=== PATIENT | female | born 1945 | race Caucasian/White ===

== ENCOUNTER 2016-12-23 18:17 | Emergency (ER) | payer MEDICARE, MEDICAID ==
[~2016-12-23] VITALS: Ht 172.7 cm; Wt 127.2 kg
[~2016-12-23 18:17] MED LIST: AMLO10TA2 PO; AMLO10TA82 PO; APIX5TAB PO; ATOR10TA PO; ATOR10TA66 PO; CEFD300C3 PO; CYCL5TAB11 PO; DILT240C90 PO; DIPH25CA6 PO; DOCU-143 PO; FLUT9.9S NS; GBPN300C PO; HCT25T PO; HYDR-34 PO; HYDR25TA4 PO; LEVO125T6 PO; LISI-556 PO; LVT.15T PO; MENT56.7 TP; METO-270 PO; OMG1KC PO; PRAV40TA PO; RT-ALBUINH; TRM50T PO
--- NOTE | 2016-12-23 18:36 | ED Back Pain ---
General Chief Complaint: Back Problems Stated Complaint: RT SIDED RIB/BACK/KNEE PAIN Source of Information: Patient Exam Limitations: No Limitations History of Present Illness Time Seen by Provider: 18:34 Initial Comments To ER with right flank pain, low back pain for the past year but worse over the past week, worsened by movement. She also reports urinary frequency and burning upon urination for the past few days. No fevers. Also reports a "vaginal sore" that is tender and enlarging. She did see her primary care provider for these issues 2 weeks ago and was told to place Desitin on this but she states "it's too wet down there for Desitin" Location: Lumbar Spine Timing/Duration: 2-3 Days Severity: Moderate Associated Symptoms: No muscle spasms, lower back pain Allergies and Home Medications Allergies Coded Allergies: Penicillins (Verified Allergy, Mild, 01/04/14) Biaydyg-Lst-Ncy Reductase Inhibitor (Verified Allergy, Mild, 01/04/14) aspirin (Verified Allergy, Mild, 01/04/14) codeine (Verified Allergy, Mild, 01/04/14) opium tincture (Verified Allergy, Mild, 01/04/14) tramadol (Verified Allergy, Mild, 01/04/14) Home Medications Albuterol Sulfate 8.5 Gm Hfa.aer.ad, #9 (Reported) Apixaban 5 Mg Tablet, 5 MG PO BID, (Reported) Atorvastatin Calcium 10 Mg Tablet, 10 MG PO DAILY, (Reported) Fluconazole 150 Mg Tablet, 150 MG PO DAILY, #3 Prescribed by: EV DARBY on 12/23/162018 Gabapentin 300 Mg Cap, 300 MG PO BID PRN for PAIN, (Reported) Hydrochlorothiazide 25 Mg Tablet, 25 MG PO DAILY, (Reported) Levothyroxine Sodium 125 Mcg Tablet, 125 MCG PO DAILY, (Reported) Lisinopril 5 Mg Tablet, 5 MG PO HS, (Reported) Metoprolol Succinate 25 Mg Tab.er.24h, 25 MG PO DAILY, (Reported) Sulfamethoxazole/Trimethoprim 1 Each Tablet, 1 EACH PO BID, #10 Prescribed by: EV DARBY on 12/23/162018 Time Seen by Provider: 18:36 Constitutional: see HPI, No chills, No fever EENTM: see HPI Respiratory: no symptoms reported, No cough, No short of breath Cardiovascular: no symptoms reported Genitourinary: see HPI, dysuria Musculoskeletal: see HPI, back pain Skin: no symptoms reported Psychiatric/Neurological: No Symptoms Reported Past [place]p[place]-[place] Hx Patient Social History Former Smoker/When Quit: Jul 19, 1995 Recent Foreign Travel: No Contact w/Someone Who Travel: No Immunizations Up To Date Tetanus Booster (TDap): Unknown Date of Pneumonia Vaccine: Jul 18, 2015 Date of Influenza Vaccine: Jul 18, 2015 Surgeries HX Surgeries: Yes (DENTAL, HEMORRHOIDECTOMY, CARDIAC CATH; CATARACTS) Surgeries: Cardiac, Eye Surgery, Rectal, Tubal Ligation Respiratory Hx Respiratory Disorders: Yes (PNEUMONIA A CHILD; ) Respiratory Disorders: Asthma, Pneumonia, Sleep Apnea Cardiovascular Hx Cardiac Disorders: Yes (CLEAN CATH 09/03 ) Cardiac Disorders: Coronary Artery Disease, High Cholesterol, Hypertension Neurological Hx Neurological Disorders: No 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 System Hx 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 Disorders: No Sexually Transmitted Disease: No HIV/AIDS: No 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 Disorders: Denies Genitourinary Hx Genitourinary Disorders: Yes (FREQUENT UTI'S AND BLADDER INFECTIONS) Genitourinary Disorders: Bladder Infection, UTI-Chronic Gastrointestinal Hx Gastrointestinal Disorders: Yes Gastrointestinal Disorders: Gastroesophageal Reflux, Chronic Constipation, Hemorrhoids, Irritable Bowel Musculoskeletal Hx Musculoskeletal Disorders: Yes (BONE DZ) Musculoskeletal Disorders: Arthritis, Fibromyalgia Endocrine Hx Endocrine Disorders: Yes Endocrine Disorders: Hypothyroidsim HEENT HX ENT Disorders: Yes (WEARS GLASSES) HEENT Disorders: Cataract Hearing Impairment: Hard of Hearing Cancer Hx Cancer: No Psychosocial Hx Psychiatric Problems: Yes Behavioral Health Disorders: Anxiety Integumentary HX Skin/Integumentary Disorder: No Blood Transfusions Hx Blood Disorders: No Family Medical History Family Medial History: Dementia 19 FATHER Drug abuse G8 BROTHER G8 SISTER FH: pancreatic cancer 19 MOTHER ( OF PANCREATIC CA AGE 67) Thyroid disease 19 MOTHER Physical Exam Vital Signs Vital Sign - Last 12Hours 12/23/16 18:30 Temp 98.0 Pulse 80 Resp 20 B/P (MAP) 163/87 Pulse Ox 96 O2 Delivery Room Air Capillary Refill : Less Than 3 Seconds General Appearance: No Apparent Distress, WD/WN HEENT: PERRL/EOMI, TMs Normal Neck: Full Range of Motion, Normal Inspection Cardiovascular: Regular Rate, Rhythm, Normal Peripheral Pulses Respiratory: Normal Breath Sounds, No Accessory Muscle Use, No Respiratory Distress Gastrointestinal: Normal Bowel Sounds, Non Tender, Soft Genital/Rectal: Other (genital exam done with any back at the bedside. There is excoriation at the vaginal introitus posteriorly. There is no erythema or lesion at the urethra. There is no active bleeding from this area though patient states this has been bleeding earlier today.) Back: No CVA Tenderness (L), CVA Tenderness (R) Extremity: Normal Capillary Refill, Other (the right knee is without swelling erythema abrasions deformity or ecchymosis. There is no palpable effusion.) Neurologic/Psychiatric: Alert, Oriented x3 Skin: Normal Color, Warm/Dry Progress/Results/Core Measures Results/Orders Lab Results Laboratory Tests Test 12/23/16 18:40 12/23/16 20:01 Range/Units White Blood Count 7.2 4.3-11.0 10^3/uL Red Blood Count 4.92 4.35-5.85 10^6/uL Hemoglobin 12.8 11.5-16.0 G/DL Hematocrit 40 35-52 % Mean Corpuscular Volume 82 80-99 FL Mean Corpuscular Hemoglobin 26 25-34 PG Mean Corpuscular Hemoglobin Concent 32 32-36 G/DL Red Cell Distribution Width 14.0 10.0-14.5 % Platelet Count 251 130-400 10^3/uL Mean Platelet Volume 9.0 7.4-10.4 FL Neutrophils (%) (Auto) 71 42-75 % Lymphocytes (%) (Auto) 17 12-44 % Monocytes (%) (Auto) 9 0-12 % Eosinophils (%) (Auto) 2 0-10 % Basophils (%) (Auto) 0 0-10 % Neutrophils # (Auto) 5.1 1.8-7.8 X 10^3 Lymphocytes # (Auto) 1.3 1.0-4.0 X 10^3 Monocytes # (Auto) 0.7 0.0-1.0 X 10^3 Eosinophils # (Auto) 0.2 0.0-0.3 10^3/uL Basophils # (Auto) 0.0 0.0-0.1 10^3/uL Sodium Level 143 135-145 MMOL/L Potassium Level 3.8 3.6-5.0 MMOL/L Chloride Level 105 98-107 MMOL/L Carbon Dioxide Level 28 21-32 MMOL/L Anion Gap 10 5-14 MMOL/L Blood Urea Nitrogen 27 H 7-18 MG/DL Creatinine 1.14 0.60-1.30 MG/DL Estimat Glomerular Filtration Rate 47 BUN/Creatinine Ratio 24 Glucose Level 118 H 70-105 MG/DL Calcium Level 9.4 8.5-10.1 MG/DL Total Bilirubin 0.5 0.1-1.0 MG/DL Aspartate Amino Transf (AST/SGOT) 19 5-34 U/L Alanine Aminotransferase (ALT/SGPT) 18 0-55 U/L Alkaline Phosphatase 84 40-136 U/L Total Protein 7.0 6.4-8.2 G/DL Albumin 3.8 3.2-4.5 G/DL Urine Color YELLOW Urine Clarity CLEAR Urine pH 7 5-9 Urine Specific [place] 1.010 L 1.016-1.022 Urine Protein NEGATIVE NEGATIVE Urine Glucose (UA) NEGATIVE NEGATIVE Urine Ketones NEGATIVE NEGATIVE Urine Nitrite NEGATIVE NEGATIVE Urine Bilirubin NEGATIVE NEGATIVE Urine Urobilinogen 1 NORMAL MG/DL Urine Leukocyte Esterase 3+ H NEGATIVE Urine RBC (Auto) 1+ H NEGATIVE Urine RBC 2-5 H /HPF Urine WBC 10-25 H /HPF Urine Crystals NONE /LPF Urine Bacteria FEW H /HPF Urine Casts NONE /LPF Urine Mucus NEGATIVE /LPF Urine Culture Indicated YES My Orders Orders - EV DARBY CLASSIFICATION CONTROL CLERK Cbc With Automated Diff (12/23/16 18:33) Comprehensive Metabolic Panel (12/23/16 18:33) Ua Culture If Indicated (12/23/16 18:33) Saline Lock/Iv-Start (12/23/16 18:33) Knee, Right, 3 Views (12/23/16 18:33) Ns Iv 1000 Ml (Sodium Chloride 0.9%) (12/23/16 19:00) Ct Abd/Pelvis Wo(Kidney Stone) (12/23/16 19:15) Urine Culture (12/23/16 20:01) Levofloxacin Tablet (Levaquin Tablet) (12/23/16 20:30) Vital Signs/I&O Vital Sign - Last 12Hours 12/23/16 18:30 Temp 98.0 Pulse 80 Resp 20 B/P (MAP) 163/87 Pulse Ox 96 O2 Delivery Room Air Diagnostic Imaging Diagonstic Imaging: Xray Comments NAME: Y[facility]IRA [facility] REC#: [id number] PT STATUS: REG ER : 1945 PHYSICIAN: EV DARBY APRN ADMIT DATE: 12/23/16/ER Draft Date of Exam:12/23/16 CT ABD/PELVIS WO(KIDNEY STONE) PROCEDURE: CT urinary tract, rule out kidney stone. TECHNIQUE: Multiple contiguous axial images were obtained through the abdomen and pelvis without the use of intravenous contrast. INDICATION: Right-sided back pain x2 months. Painful urination. FINDINGS: The lung bases are clear. The kidneys show no evidence of hydronephrosis. No calculi seen within the renal collecting system. There is a tiny cortical calcification noted along the periphery of the midportion of the right kidney measuring 5 mm. Ureters are not dilated. Bladder appears normal. The liver is normal. The gallbladder is contracted. Bile ducts are not dilated. Pancreas and spleen are normal. The adrenal glands appear normal. Aorta shows mild atherosclerosis with no aneurysm. There is no evidence of intra-abdominal adenopathy of pathologic size. The stomach and small bowel are not distended. The colon shows scattered diverticuli without evidence of diverticulitis. The appendix is not visualized. No evidence of pericecal edema. The terminal ileum and ileocecal valve appear normal. There are no pelvic masses. Uterus appears normal. No free air or free fluid. No bony lesion. IMPRESSION: 1. No evidence of renal calculi or renal obstruction. There is noted a small benign cortical calcification laterally in the right kidney measuring 5 mm. 2. Diverticulosis noted scattered throughout the colon from the cecum to the rectum without evidence of diverticulitis. The appendix is not visualized. No pericecal edema. Dictated on workstation # [id number] Dict: 12/23/161935 Trans: 12/23/161950 [facility] [id number] Interpreted by: RACHELLE WRIGHT MD Electronically signed by: Departure Impression Impression: Primary Impression: Urinary tract infection Additional Impression: Vulvovaginitis Disposition: 01 HOME, SELF-CARE Condition: Stable Departure-Patient Inst. Decision time for Depature: 20:18 Referrals: BOY MERCADO APRN (PCP) Primary Care Physician MELISSA WOOTEN DO (Family) Primary Care Physician JUAN SHAW DENNIS G MD MCNULTY, ERIN N MD SHAW, ANGELA C DO Patient Instructions: Urinary Tract Infection, Adult (DC) Add. Discharge Instructions: 1. Follow up with one of the OB/GYNs if no improvement in the vaginal sore in 2 weeks. 2. Antibiotics as directed All discharge instructions reviewed with patient and/or family. Voiced understanding. Scripts Sulfamethoxazole/Trimethoprim (Bactrim Ds Tablet) 1 Each Tablet 1 EACH PO BID, #10 TAB Prov: EV DARBY APRN 12/23/16 Fluconazole (Diflucan) 150 Mg Tablet 150 MG PO DAILY, #3 TAB Prov: EV DARBY APRN 12/23/16 EV DARBY APRN Dec 23, 2016 18:36
[2016-12-23 18:53] LABS: BASOPHILS % (AUTO) 0 % (0-10); EOSINOPHILS # (AUTO) 0.2 10^3/uL (0.0-0.3); EOSINOPHILS % (AUTO) 2 % (0-10); LYMPHOCYTES # (AUTO) 1.3 X 10^3 (1.0-4.0); LYMPHOCYTES % (AUTO) 17 % (12-44); MEAN CORPUSCULAR HEMOGLOBIN 26 PG (25-34); MEAN CORPUSCULAR HGB CONC 32 G/DL (32-36); MEAN CORPUSCULAR VOLUME 82 FL (80-99); MONOCYTES # (AUTO) 0.7 X 10^3 (0.0-1.0); MONOCYTES % (AUTO) 9 % (0-12); NEUTROPHILS # (AUTO) 5.1 X 10^3 (1.8-7.8); NEUTROPHILS % (AUTO) 71 % (42-75); PLATELET COUNT 251 10^3/uL (130-400); RED BLOOD COUNT 4.92 10^6/uL (4.35-5.85); WHITE BLOOD COUNT 7.2 10^3/uL (4.3-11.0)
[2016-12-23] MEDS ORDERED: NS IV 1000 ML 1,000 ML IV SCH (19:00)
[2016-12-23 19:13] LABS: ALBUMIN 3.8 G/DL (3.2-4.5); BILIRUBIN,TOTAL 0.5 MG/DL (0.1-1.0); CALCIUM 9.4 MG/DL (8.5-10.1); CREATININE SERUM 1.14 MG/DL (0.60-1.30); POTASSIUM 3.8 MMOL/L (3.6-5.0)
--- NOTE | 2016-12-23 19:42 | Diagnostic Imaging Report ---
INDICATION: Knee pain. COMPARISON: January 05, 2014. TECHNIQUE: Three radiographs of the right knee dated December 23, 2016. FINDINGS: No acute fracture or dislocation. No destructive osseous process. Moderate medial joint and mild lateral joint space narrowing is identified. Moderate tricompartmental osteophytosis, most prominent involving the patellofemoral joint. No significant joint effusion. No suspicious radiopaque foreign body. IMPRESSION: Similar appearing examination demonstrating moderate degenerative changes without acute osseous abnormality. Dictated by: Dictated on workstation # [id number]
--- NOTE | 2016-12-23 19:51 | Diagnostic Imaging Report ---
PROCEDURE: CT urinary tract, rule out kidney stone. TECHNIQUE: Multiple contiguous axial images were obtained through the abdomen and pelvis without the use of intravenous contrast. INDICATION: Right-sided back pain x2 months. Painful urination. FINDINGS: The lung bases are clear. The kidneys show no evidence of hydronephrosis. No calculi seen within the renal collecting system. There is a tiny cortical calcification noted along the periphery of the midportion of the right kidney measuring 5 mm. Ureters are not dilated. Bladder appears normal. The liver is normal. The gallbladder is contracted. Bile ducts are not dilated. Pancreas and spleen are normal. The adrenal glands appear normal. Aorta shows mild atherosclerosis with no aneurysm. There is no evidence of intra-abdominal adenopathy of pathologic size. The stomach and small bowel are not distended. The colon shows scattered diverticuli without evidence of diverticulitis. The appendix is not visualized. No evidence of pericecal edema. The terminal ileum and ileocecal valve appear normal. There are no pelvic masses. Uterus appears normal. No free air or free fluid. No bony lesion. IMPRESSION: 1. No evidence of renal calculi or renal obstruction. There is noted a small benign cortical calcification laterally in the right kidney measuring 5 mm. 2. Diverticulosis noted scattered throughout the colon from the cecum to the rectum without evidence of diverticulitis. The appendix is not visualized. No pericecal edema. Dictated by: Dictated on workstation # [id number]
[2016-12-23 20:08] LABS: BILIRUBIN,URINE NEGATIVE (NEGATIVE); KETONES,URINE NEGATIVE (NEGATIVE); LEUKOCYTE ESTERASE ,URINE 3+ (NEGATIVE); NITRITE,URINE NEGATIVE (NEGATIVE); PH,URINE 7 (5-9); PROTEIN,URINE NEGATIVE (NEGATIVE); UROBILINOGEN,URINE 1 MG/DL (NORMAL)
[2016-12-23] MEDS ORDERED: SULF1TAB35 PO (20:19)
[2016-12-23] MEDS ORDERED: FLUC150T PO (20:19)
[2016-12-23] MEDS ORDERED: LEVOFLOXACIN 500 MG TAB (LEVAQUIN) PO ONE (20:30)
[2016-12-23 20:58] VITALS: BP 158/88
== END 2016-12-23 20:58 | disposition home or self-care (01) ==
LOC: EDUNIT# 18:17 → ER 18:21
DX: N39.0 Urinary tract infection, site not specified (principal); N76.0 Acute vaginitis; I10 Essential (primary) hypertension; I25.10 Atherosclerotic heart disease of native coronary artery without angina pectoris; Z87.19 Personal history of other diseases of the digestive system; Z87.891 Personal history of nicotine dependence
CPT/HCPCS: 36415; 73562; 74176; 80053; 81000; 85025; 87088

== ENCOUNTER → 2016-12-24 | Outpatient (CLI) | payer MEDICARE, MEDICAID ==
[~2016-12-24] MED LIST changes: +FLUC150T PO; +SULF1TAB35 PO
--- NOTE | 2016-12-24 14:03 | Diagnostic Imaging Report ---
EXAMINATION: DEXA scan. INDICATION: Osteopenia. TECHNIQUE: Bone mineral density estimated based on dual energy radiography over the lumbar spine and femoral necks, was performed. FINDINGS: The lumbar spine T-score is -0.4. T score over the right femoral neck is -0.9 and on the left side is -1. IMPRESSION: Osteopenia. Dictated by: Dictated on workstation # [id number]
== END ==
LOC: RAD 10:07
PROVIDERS: ATTEND Nurse Practitioner Family
DX: M85.88 Other specified disorders of bone density and structure, other site (principal); Z78.0 Asymptomatic menopausal state
CPT/HCPCS: 77080

== ENCOUNTER 2017-07-28 15:36 | Observation (INO) | payer MEDICARE, MEDICAID ==
[~2017-07-28] VITALS: Ht 170.2 cm; Wt 112.0 kg
[~2017-07-28 15:36] MED LIST changes: -METO-270 PO; +METO-387 PO; -RT-ALBUINH; +RT-ALBUINH INH
[2017-07-28] MEDS ORDERED: ASPIRIN 81 MG CHEW (CHILDREN'S ASA) PO ONE (16:00)
[2017-07-28 16:11] LABS: BASOPHILS % (AUTO) 1 % (0-10); EOSINOPHILS # (AUTO) 0.2 10^3/uL (0.0-0.3); EOSINOPHILS % (AUTO) 4 % (0-10); HEMATOCRIT 36 % (35-52); HEMOGLOBIN 11.8 G/DL (11.5-16.0); LYMPHOCYTES # (AUTO) 1.3 X 10^3 (1.0-4.0); LYMPHOCYTES % (AUTO) 30 % (12-44); MEAN CORPUSCULAR HEMOGLOBIN 27 PG (25-34); MEAN CORPUSCULAR HGB CONC 33 G/DL (32-36); MEAN CORPUSCULAR VOLUME 81 FL (80-99); MEAN PLATELET VOLUME 9.4 FL (7.4-10.4); MONOCYTES # (AUTO) 0.3 X 10^3 (0.0-1.0); MONOCYTES % (AUTO) 8 % (0-12); NEUTROPHILS # (AUTO) 2.5 X 10^3 (1.8-7.8); NEUTROPHILS % (AUTO) 58 % (42-75); PLATELET COUNT 246 10^3/uL (130-400); RED BLOOD COUNT 4.42 10^6/uL (4.35-5.85); RED CELL DISTRIBUTION WIDTH 13.5 % (10.0-14.5); WHITE BLOOD COUNT 4.4 10^3/uL (4.3-11.0)
[2017-07-28 16:16] LABS: INR 1.3 (0.8-1.4); PROTHROMBIN TIME PATIENT 16.1 SEC (12.2-14.7)
[2017-07-28 16:26] LABS: ALANINE AMINOTRANSFERASE 15 U/L (0-55); ALBUMIN 3.7 GM/DL (3.2-4.5); ALKALINE PHOSPHATASE 65 U/L (40-136); AMYLASE 52 U/L (25-125); BILIRUBIN,TOTAL 0.7 MG/DL (0.1-1.0); BUN/CREATININE RATIO 21; CALCIUM 9.1 MG/DL (8.5-10.1); CARBON DIOXIDE 25 MMOL/L (21-32); CHLORIDE 109 MMOL/L (98-107); CREATINE KINASE 41 U/L (29-168); CREATININE SERUM 1.01 MG/DL (0.60-1.30); GFR ESTIMATED 54; GLUCOSE 97 MG/DL (70-105); LIPASE 42 U/L (8-78); MAGNESIUM 1.8 MG/DL (1.8-2.4); SODIUM 142 MMOL/L (135-145); TOTAL PROTEIN 6.6 GM/DL (6.4-8.2)
--- NOTE | 2017-07-28 16:31 | Diagnostic Imaging Report ---
PATIENT HISTORY: Chest tightness for one week. TECHNIQUE: Single frontal view of the chest. COMPARISON: 10/17/2015. FINDINGS: There are mildly increased opacities in the right infrahilar region. The cardiac silhouette is mildly enlarged. No pleural effusion or pneumothorax is seen. There are degenerative changes in the bilateral acromioclavicular joints. IMPRESSION: 1. Right infrahilar infiltrate, mildly increased since the comparison study. 2. Mild cardiomegaly. Dictated by: Dictated on workstation # [id number]
[2017-07-28] MEDS ORDERED: NS IV 1000 ML 1,000 ML IV ONE (16:33)
[2017-07-28 16:35] LABS: CREATINE KINASE MB 0.7 NG/ML (<6.6)
--- NOTE | 2017-07-28 16:38 | ED Chest Pain ---
General Chief Complaint: Chest Pain Stated Complaint: LEFT ARM AND LEG PAIN;SOB;CHEST PAIN Nursing Triage Note: PT REPORTS INTERMITTENT CP X 2 DAYS THAT IS WORSE WITH ACTIVITY. PT REPORTS SHE IS ALSO HAVING L LEG PAIN AND L ARM NUMBNESS. Nursing Sepsis Screen: No Definite Risk Source: patient History of Present Illness Time seen by provider: 15:40 Initial Comments PT ARRIVES VIA POV FROM HOME C/O DIFFUSE ANTERIOR CHEST PAIN OFF AND ON X 2-3 DAYS C/O SHORTNESS OF BREATH, ESPECIALLY WITH EXERTION --HAS SOME CHRONIC SHORTNESS OF BREATH FROM ASTHMA, BUT IS WORSE WITH EXERTION AND WITH CHEST PAIN FOR THE LAST 2-3 DAYS + NAUSEA, NO VOMITING NO SWEATS NO SWELLING IN LEGS/ FEET OR PAIN IN CALVES. NO RECENT TRAVEL OR PROLONGED SITTING. YESTERDAY SHE BEGAN HAVING DIFFUSE PAIN IN LEFT LEG--WORSE WITH EXERTION TODAY BEGAN TO HAVE PAIN /NUMBNESS DOWN LEFT ARM--ALSO WORSE WITH EXERTION ALL SYMPTOMS WORSEN WITH EXERTION AND IMPROVE/GO AWAY WITH REST NO FEVER, COUGH /URI SYMPTOMS PT HAS CHRONIC ATRIAL FIBRILLATION AND IS ON ELIQUIS PT ALSO HAS HISTORY OF HTN STATES SHE FREQUENTLY FORGETS TO TAKE HER MEDICATIONS PT'S LAST CARDIAC CATH WAS --MILD DISEASE, NO INTERVENTION PCP: SERAFIN, MITCHELL MERCADO MAINTENANCE LEADER: DR. POMPA Allergies and Home Medications Allergies Coded Allergies: Penicillins (Verified Allergy, Mild, 01/04/14) Vpceynu-Emf-Kqu Reductase Inhibitor (Verified Allergy, Mild, 01/04/14) aspirin (Verified Allergy, Mild, 01/04/14) codeine (Verified Allergy, Mild, 01/04/14) opium tincture (Verified Allergy, Mild, 01/04/14) tramadol (Verified Allergy, Mild, 01/04/14) Home Medications Albuterol Sulfate 8.5 Gm Hfa.aer.ad, #9 (Reported) Apixaban 5 Mg Tablet, 5 MG PO BID, (Reported) Atorvastatin Calcium 10 Mg Tablet, 10 MG PO DAILY, (Reported) Fluconazole 150 Mg Tablet, 150 MG PO DAILY, #3 Prescribed by: EV DARBY on 12/23/162018 Gabapentin 300 Mg Cap, 300 MG PO BID PRN for PAIN, (Reported) Hydrochlorothiazide 25 Mg Tablet, 25 MG PO DAILY, (Reported) Levothyroxine Sodium 125 Mcg Tablet, 125 MCG PO DAILY, (Reported) Lisinopril 5 Mg Tablet, 5 MG PO HS, (Reported) Metoprolol Succinate 25 Mg Tab.er.24h, 25 MG PO DAILY, (Reported) Sulfamethoxazole/Trimethoprim 1 Each Tablet, 1 EACH PO BID, #10 Prescribed by: EV DARBY on 12/23/162018 Review of Systems Constitutional: no symptoms reported Respiratory: See HPI, Shortness of Air, SOA With Exertion Cardiovascular: See HPI, Chest Pain, Denies Edema, Irregular Heart Rate, Denies Lightheadedness, Denies Palpitations, Denies Syncope Gastrointestinal: See HPI, Nausea, Denies Vomiting Genitourinary: See HPI (CHRONIC INCONTINENCE) Musculoskeletal: see HPI, back pain (CHRONIC DIFFUSE BACK PAIN ) Skin: no symptoms reported Psychiatric/Neurological: See HPI, Numbness Endocrine: No Symptoms Reported Hematologic/Lymphatic: No Symptoms Reported Past Afblbrt-Znxqgm-Ficfsq Hx Patient Social History Alcohol Use: Occasionally Uses Number of Drinks Today: DD Alcohol Beverage of Choice: Rum Recreational Drug Use: No Smoking Status: Former Smoker (SMOKED FOR A YEAR, > 15 YEARS AGO--NONE SINCE) Type Used: Cigarettes Recent Foreign Travel: No Contact w/Someone Who Travel: No Recent Infectious Disease Expo: No Recent Hopitalizations: No Physical Abuse: No Sexual Abuse: No Mistreated: No Fear: No Immunizations Up To Date Tetanus Booster (TDap): Unknown Date of Pneumonia Vaccine: Jul 18, 2015 Date of Influenza Vaccine: Jul 18, 2015 Seasonal Allergies Seasonal Allergies: Yes Surgeries History of Surgeries: Yes (DENTAL, HEMORRHOIDECTOMY, CARDIAC CATH X 2 ; CATARACTS) Surgeries: Cardiac, Eye Surgery, Rectal, Tubal Ligation Respiratory History of Respiratory Disorde: Yes (PNEUMONIA A CHILD; ) Respiratory Disorders: Asthma, Pneumonia, Sleep Apnea Currently Using CPAP: No (PATIENT WEARS 02 AT NIGHT (3L/NC) ) Currently Using BIPAP: No Cardiovascular History of Cardiac Disorders: Yes (CLEAN CATH 09/03 ) Cardiac Disorders: Atrial Fibrillation, Coronary Artery Disease, High Cholesterol, Hypertension Neurological History of Neurological Disord: Yes Neurological Disorders: Neuropathy 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 System Hx 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 Disorders: No Sexually Transmitted Disease: No HIV/AIDS: No 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 Disorders: Denies 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 Genitourinary History of Genitourinary Disor: Yes (INCONTINENCE) Genitourinary Disorders: Bladder Infection, UTI-Chronic Gastrointestinal History of Gastrointestinal Di: Yes Gastrointestinal Disorders: Gastroesophageal Reflux, Chronic Constipation, Hemorrhoids, Irritable Bowel Musculoskeletal History of Musculoskeletal Dis: Yes Musculoskeletal Disorders: Arthritis, Fibromyalgia, Chronic Back Pain Endocrine History of Endocrine Disorders: Yes (HYPOGLYCEMIA; OBESITY) Endocrine Disorders: Hypothyroidsim HEENT History of HEENT Disorders: Yes (WEARS GLASSES) HEENT Disorders: Cataract Hearing Impairment: Hard of Hearing Cancer History of Cancer: No Psychosocial History of Psychiatric Problem: Yes Behavioral Health Disorders: Anxiety Suicide Risk Score: 0 Integumentary History of Skin or Integumenta: No Blood Transfusions History of Blood Disorders: No Family Medical History Family Medial History: Dementia 19 FATHER Drug abuse G8 BROTHER G8 SISTER FH: pancreatic cancer 19 MOTHER ( OF PANCREATIC CA AGE 67) Thyroid disease 19 MOTHER Physical Exam Vital Signs Vital Sign - Last 12Hours 07/28/17 15:53 Temp 98.2 Pulse 77 Resp 18 B/P (MAP) 184/105 (131) Pulse Ox 99 O2 Delivery Room Air Capillary Refill : Less Than 3 Seconds General Appearance: No Apparent Distress, Obese HEENT: PERRL/EOMI Neck: Full Range of Motion, Normal Inspection, Non Tender, Supple, No Carotid Bruit, No JVD Respiratory: Chest Non Tender, Normal Breath Sounds, No Accessory Muscle Use, No Respiratory Distress Cardiovascular: No Edema, No JVD, No Murmur, Normal Peripheral Pulses, Irregularly Irregular Gastrointestinal: Normal Bowel Sounds, No Organomegaly, No Pulsatile Mass, Non Tender, Soft Extremity: Normal Capillary Refill, Normal Inspection, Normal Range of Motion, Non Tender, No Calf Tenderness, No Pedal Edema Neurologic/Psychiatric: Alert, Oriented x3, No Motor/Sensory Deficits, Normal 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/Affect, 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 Norm as Tested Skin: Normal Color, Warm/Dry, No Rash Progress/Results/Core Measures Results/Orders Lab Results Laboratory Tests Test 07/28/17 15:40 Range/Units White Blood Count 4.4 4.3-11.0 10^3/uL Red Blood Count 4.42 4.35-5.85 10^6/uL Hemoglobin 11.8 11.5-16.0 G/DL Hematocrit 36 35-52 % Mean Corpuscular Volume 81 80-99 FL Mean Corpuscular Hemoglobin 27 25-34 PG Mean Corpuscular Hemoglobin Concent 33 32-36 G/DL Red Cell Distribution Width 13.5 10.0-14.5 % Platelet Count 246 130-400 10^3/uL Mean Platelet Volume 9.4 7.4-10.4 FL Neutrophils (%) (Auto) 58 42-75 % Lymphocytes (%) (Auto) 30 12-44 % Monocytes (%) (Auto) 8 0-12 % Eosinophils (%) (Auto) 4 0-10 % Basophils (%) (Auto) 1 0-10 % Neutrophils # (Auto) 2.5 1.8-7.8 X 10^3 Lymphocytes # (Auto) 1.3 1.0-4.0 X 10^3 Monocytes # (Auto) 0.3 0.0-1.0 X 10^3 Eosinophils # (Auto) 0.2 0.0-0.3 10^3/uL Basophils # (Auto) 0.0 0.0-0.1 10^3/uL Prothrombin Time 16.1 H 12.2-14.7 SEC INR Comment 1.3 0.8-1.4 Activated Partial Thromboplast Time 34 24-35 SEC Sodium Level 142 135-145 MMOL/L Potassium Level 4.0 3.6-5.0 MMOL/L Chloride Level 109 H 98-107 MMOL/L Carbon Dioxide Level 25 21-32 MMOL/L Anion Gap 8 5-14 MMOL/L Blood Urea Nitrogen 21 H 7-18 MG/DL Creatinine 1.01 0.60-1.30 MG/DL Estimat Glomerular Filtration Rate 54 BUN/Creatinine Ratio 21 Glucose Level 97 70-105 MG/DL Calcium Level 9.1 8.5-10.1 MG/DL Magnesium Level 1.8 1.8-2.4 MG/DL Total Bilirubin 0.7 0.1-1.0 MG/DL Aspartate Amino Transf (AST/SGOT) 17 5-34 U/L Alanine Aminotransferase (ALT/SGPT) 15 0-55 U/L Alkaline Phosphatase 65 40-136 U/L Total Creatine Kinase 41 29-168 U/L Creatine Kinase MB 0.7 <6.6 NG/ML Troponin I < 0.30 <0.30 NG/ML B-Type Natriuretic Peptide 363.7 H <100.0 PG/ML Total Protein 6.6 6.4-8.2 GM/DL Albumin 3.7 3.2-4.5 GM/DL Amylase Level 52 25-125 U/L Lipase 42 8-78 U/L My Orders Orders - ALEXIS HDEZ DO Amylase (07/28/17 16:00) Cbc With Automated Diff (07/28/17 16:00) Comprehensive Metabolic Panel (07/28/17 16:00) Creatine Kinase (07/28/17 16:00) Creatine Kinase Mb (07/28/17 16:00) Lipase (07/28/17 16:00) Partial Thromboplastin Time (07/28/17 16:00) Protime With Inr (07/28/17 16:00) Troponin I (07/28/17 16:00) Chest 1 View, Ap/Pa Only (07/28/17 16:00) O2 (07/28/17 16:00) Ekg Tracing (07/28/17 16:00) Aspirin Chewable Tablet (Baby Aspirin Ch (07/28/17 16:00) BNP (07/28/17 16:00) Monitor-Rhythm Ecg Trace Only (07/28/17 16:00) Magnesium (07/28/17 16:00) Ct Angio Chest W (07/28/17 16:33) Saline Lock/Iv-Start (07/28/17 16:33) Ns Iv 1000 Ml (Sodium Chloride 0.9%) (07/28/17 16:33) Iohexol Injection (Omnipaque 350 Mg/Ml 1 (07/28/17 16:45) Medications Given in ED Current Medications Medications Dose Ordered Sig/Kareem Route Start Time Stop Time Status Last Admin Dose Admin Aspirin 324 mg ONCE ONCE PO 07/28/17 16:00 07/28/17 16:02 DC 07/28/17 16:32 324 MG Iohexol 150 ml ONCE ONCE IV 07/28/17 16:45 07/28/17 16:46 DC 07/28/17 17:53 150 ML Sodium Chloride 1,000 ml @ 0 mls/hr Q0M ONCE IV 07/28/17 16:33 07/28/17 16:42 DC 07/28/17 17:26 0 MLS/HR Vital Signs/I&O Vital Sign - Last 12Hours 07/28/17 07/28/17 15:53 15:53 Temp 98.2 Pulse 77 Resp 18 B/P (MAP) 184/105 (131) Pulse Ox 99 O2 Delivery Room Air Blood Pressure Mean: 131 Progress Note : Progress Note PAIN RESOLVED AND BP DOWN AT TIME OF ADMIT NO DYSPNEA OR HYPOXIA DURING ER STAY ECG Initial ECG Impression Time: 15:43 Initial ECG Rate: 80 Initial ECG Rhythm: A Fib/Flutter Initial ECG Impression: Nonspecific Changes, Atrial Fibrillation Initial ECG Comparisson: Changed (NOW WITH Q WAVES IN LEAD 3, AVF--CHANGE FROM 10/17/15) Diagnostic Imaging Comments CXR--RIGHT INFRAHILAR INFILTRATE--PER RADIOLOGIST REPORT @ 1635 CT CHEST ANGIOGRAM-NO P.E. MILD INTERSTITIAL EDEMA, RML ATELECTASIS--PER RADIOLOGIST REPORT @ 1728 Reviewed: Reviewed by Me Departure Communication (Admissions) Progress Notes 1730--SPOKE WITH DR. Hebert GOMEZ, ACCEPTS PT FOR ADMIT 1740--SPOKE WITH DR. POMPA, INFORMED ON CONSULT Impression Impression: Primary Impression: Chest pain Additional Impressions: MILD CHF HTN (hypertension) Chronic atrial fibrillation Disposition: ADMITTED INPATIENT Condition: Improved Admissions Decision to Admit Reason: Admit from ER (General) Decision to Admit/Date: Jul 28, 2017 Time/Decision to Admit Time: 17:30 Departure-Patient Inst. Referrals: MELISSA WOOTEN DO (PCP) Primary Care Physician BOY MERCADO APRN (Family) Primary Care Physician ALEXIS HDEZ DO Jul 28, 2017 16:38
[2017-07-28] MEDS ORDERED: IOHEXOL 350 MG/ML 150 ML (OMNIPAQUE 350) VIAL IV ONE (16:45)
--- NOTE | 2017-07-28 17:26 | Diagnostic Imaging Report ---
PROCEDURE: CT angiography of the chest with contrast. TECHNIQUE: Multiple contiguous axial images were obtained through the chest after uneventful bolus administration of intravenous contrast. Reconstructed CTA MIP acquisitions were also performed. INDICATION: Chest pain and cough. History of atrial fibrillation and asthma. COMPARISON: Comparison is made with a chest radiograph performed the same day. FINDINGS: There is adequate opacification demonstrated of the pulmonary arterial system with no evidence of filling defect within the pulmonary arteries to suggest embolism. The thoracic aorta is normal in caliber without dissection or aneurysm. Cardiomegaly is present. There is no pericardial effusion. There are some minimal patchy regions of linear opacity within the right middle lobe but no focal consolidation. There is no effusion. There is some very mild prominence of the interstitial markings at the lung bases that suggest a possibility of mild interstitial edema. There are no pathologically enlarged mediastinal lymph nodes. There is no hilar adenopathy evident. The axilla are unremarkable. There are small thyroid nodules. The visualized portion of the upper abdomen demonstrates no acute process. Multilevel degenerative features are present throughout the spine without evidence of an acute or suspicious osseous abnormality. IMPRESSION: 1. No CT angiographic evidence of pulmonary embolism. 2. Thoracic aorta unremarkable. 3. Cardiomegaly with mild prominence of the basilar pulmonary interstitial markings which appears smoothly thickened. This suggests a component of mild interstitial edema. There is no pleural effusion. 4. No focal alveolar infiltrates or consolidations are evident. There is some patchy linear atelectatic change or scar in the right middle lobe. Dictated by: Dictated on workstation # [id number]
[2017-07-28] MEDS ORDERED: FUROSEMIDE 40 MG/4 ML INJ (LASIX) IVP ONE (17:45)
[2017-07-28] MEDS ORDERED: NITROGLYCERIN 2% OINT 1 GM UNIT DOSE PACKET TOP ONE (17:45)
[2017-07-28 19:23] VITALS: BP 172/119
[2017-07-28] MEDS ORDERED: NITROGLYCERIN 0.4 MG SL TABS BTL 25'S SL PRN (19:45)
[2017-07-28] MEDS ORDERED: CATHETER FLUSH 10 ML SYR IV PRN (20:00)
[2017-07-28] MEDS ORDERED: APIXABAN 5 MG (ELIQUIS) TABLET PO SCH (21:00)
[2017-07-28] MEDS ORDERED: lisINopril 10 MG (PRINIVIL) TAB PO ONE (21:00)
[2017-07-28] MEDS ORDERED: meTOprolol TARTRATE 25 MG (LOPRESSOR) TABLET ONE (21:08)
[2017-07-28] MEDS ORDERED: PATIENT MAY USE OWN MEDS, ALL MC SCH (21:15)
[2017-07-28] MEDS ORDERED: CETI10TA17 PO (21:41)
[2017-07-28] MEDS ORDERED: SENN1TAB6 PO (21:41)
[2017-07-28] MEDS ORDERED: TIZA4TAB3 PO (21:41)
[2017-07-28] MEDS: CATHETER FLUSH 10 ML SYR IV SCH (22:26)
[2017-07-28] MEDS: NITROGLYCERIN 2% OINT 1 GM UNIT DOSE PACKET TOP SCH (23:58)
[2017-07-29] VITALS: BP 162/113
[2017-07-29] MEDS ORDERED: FUROSEMIDE 40 MG/4 ML INJ (LASIX) IV NR
[2017-07-29 04:00] VITALS: BP 154/97
[2017-07-29 05:09] LABS: BASOPHILS % (AUTO) 0 % (0-10); EOSINOPHILS # (AUTO) 0.2 10^3/uL (0.0-0.3); EOSINOPHILS % (AUTO) 3 % (0-10); HEMATOCRIT 38 % (35-52); HEMOGLOBIN 12.4 G/DL (11.5-16.0); LYMPHOCYTES # (AUTO) 1.6 X 10^3 (1.0-4.0); LYMPHOCYTES % (AUTO) 31 % (12-44); MEAN CORPUSCULAR HEMOGLOBIN 27 PG (25-34); MEAN CORPUSCULAR HGB CONC 33 G/DL (32-36); MEAN CORPUSCULAR VOLUME 81 FL (80-99); MEAN PLATELET VOLUME 9.3 FL (7.4-10.4); MONOCYTES # (AUTO) 0.4 X 10^3 (0.0-1.0); MONOCYTES % (AUTO) 8 % (0-12); NEUTROPHILS # (AUTO) 2.9 X 10^3 (1.8-7.8); NEUTROPHILS % (AUTO) 58 % (42-75); PLATELET COUNT 251 10^3/uL (130-400); RED BLOOD COUNT 4.68 10^6/uL (4.35-5.85); RED CELL DISTRIBUTION WIDTH 13.5 % (10.0-14.5); WHITE BLOOD COUNT 5.1 10^3/uL (4.3-11.0)
[2017-07-29 05:34] LABS: ALANINE AMINOTRANSFERASE 15 U/L (0-55); ALBUMIN 3.9 GM/DL (3.2-4.5); ALKALINE PHOSPHATASE 68 U/L (40-136); BUN/CREATININE RATIO 17; CALCIUM 9.4 MG/DL (8.5-10.1); CARBON DIOXIDE 27 MMOL/L (21-32); CHLORIDE 102 MMOL/L (98-107); CHOLESTEROL 166 MG/DL (< 200); CREATININE SERUM 1.11 MG/DL (0.60-1.30); GFR ESTIMATED 49; GLUCOSE 92 MG/DL (70-105); HDL CHOLESTEROL 53 MG/DL (40-60); POTASSIUM 3.2 MMOL/L (3.6-5.0); SODIUM 141 MMOL/L (135-145); TRIGLYCERIDES 78 MG/DL (<150); VLDL CHOLESTEROL 16 MG/DL (5-40)
[2017-07-29 05:46] LABS: CARDIAC PROFILE 2 < 0.30 NG/ML (<0.30)
[2017-07-29] MEDS: CATHETER FLUSH 10 ML SYR IV SCH (06:25)
[2017-07-29] MEDS: NITROGLYCERIN 2% OINT 1 GM UNIT DOSE PACKET TOP SCH (06:26)
[2017-07-29] MEDS ORDERED: INFLUENZA TRIvalent 2017-2018 0.5 ML/45 MCG SYR IM ONE (07:45)
[2017-07-29 08:12] VITALS: BP 161/84
--- NOTE | 2017-07-29 08:32 | Consultation-Cardiology ---
HPI-Cardiology Cardiology Consultation Date of Consultation 07/29/17 Date of Admission Time Seen by Provider: 08:27 Indication: Shortness of breath HPI 71 years old lady with history of coronary artery disease, permanent atrial fibrillation, hypertension hyperlipidemia. Was having increasing chest tightness on exertion, dyspnea on exertion and mild pedal edema. Reporting occasional episode of dizziness and lightheadedness. No syncope was reported. No fever or chills. Patient has been following with [facility], last seen in my office in December 2015. Reported that she has been compliant with her medications. Home Medications & Allergies Allergies: Coded Allergies: Penicillins (Verified Allergy, Mild, 01/04/14) Voccwqe-Niv-Faw Reductase Inhibitor (Verified Allergy, Mild, 01/04/14) codeine (Verified Allergy, Mild, 01/04/14) opium tincture (Verified Allergy, Mild, 01/04/14) tramadol (Verified Allergy, Mild, 01/04/14) Home Medication List Reviewed: Yes UWC-Qnwirl-Unanov Hx Patient Social History Marital Status: Employed/Student: retired Alcohol Use: Occasionally Uses Recreational Drug Use: No Smoking Status: Former Smoker Former smoker/When Quit: Jul 19, 1995 Type Used: Cigarettes Recent Foreign Travel: No Recent Infectious Disease Expo: No Recent Hopitalizations: No Physical Abuse Screen: No Sexual Abuse: No Immunizations Up To Date Tetanus Booster (TDap): Unknown Date of Pneumonia Vaccine: Jul 18, 2015 Date of Influenza Vaccine: Jul 18, 2015 Past Medical History Past medical history is discussed below Family Medical History Family History: 19 FATHER Dementia 19 MOTHER FH: pancreatic cancer ( OF PANCREATIC CA AGE 67) Thyroid disease G8 BROTHER Drug abuse G8 SISTER Drug abuse Constitutional: see HPI, malaise, weakness EENTM: see HPI, no symptoms reported Respiratory: see HPI, cough, dyspnea on exertion, No hemoptysis, No orthopnea, No phlegm, short of breath, No stridor, No wheezing, No other Cardiovascular: see HPI, chest pain, edema, No Hx of Intervention, palpitations , No syncope, No vascular heart diseas, No other Gastrointestinal: no symptoms reported, see HPI Genitourinary: no symptoms reported, see HPI Musculoskeletal: no symptoms reported, see HPI Skin: no symptoms reported, see HPI Psychiatric/Neurological: No Symptoms Reported, See HPI Reviewed Test Results Reviewed Test Results Lab Laboratory Tests Test 07/28/17 15:40 07/28/17 22:05 07/29/17 04:30 Range/Units White Blood Count 4.4 5.1 4.3-11.0 10^3/uL Red Blood Count 4.42 4.68 4.35-5.85 10^6/uL Hemoglobin 11.8 12.4 11.5-16.0 G/DL Hematocrit 36 38 35-52 % Mean Corpuscular Volume 81 81 80-99 FL Mean Corpuscular Hemoglobin 27 27 25-34 PG Mean Corpuscular Hemoglobin Concent 33 33 32-36 G/DL Red Cell Distribution Width 13.5 13.5 10.0-14.5 % Platelet Count 246 251 130-400 10^3/uL Mean Platelet Volume 9.4 9.3 7.4-10.4 FL Neutrophils (%) (Auto) 58 58 42-75 % Lymphocytes (%) (Auto) 30 31 12-44 % Monocytes (%) (Auto) 8 8 0-12 % Eosinophils (%) (Auto) 4 3 0-10 % Basophils (%) (Auto) 1 0 0-10 % Neutrophils # (Auto) 2.5 2.9 1.8-7.8 X 10^3 Lymphocytes # (Auto) 1.3 1.6 1.0-4.0 X 10^3 Monocytes # (Auto) 0.3 0.4 0.0-1.0 X 10^3 Eosinophils # (Auto) 0.2 0.2 0.0-0.3 10^3/uL Basophils # (Auto) 0.0 0.0 0.0-0.1 10^3/uL Prothrombin Time 16.1 H 12.2-14.7 SEC INR Comment 1.3 0.8-1.4 Activated Partial Thromboplast Time 34 24-35 SEC Sodium Level 142 141 135-145 MMOL/L Potassium Level 4.0 3.2 L 3.6-5.0 MMOL/L Chloride Level 109 H 102 98-107 MMOL/L Carbon Dioxide Level 25 27 21-32 MMOL/L Anion Gap 8 12 5-14 MMOL/L Blood Urea Nitrogen 21 H 19 H 7-18 MG/DL Creatinine 1.01 1.11 0.60-1.30 MG/DL Estimat Glomerular Filtration Rate 54 49 BUN/Creatinine Ratio 21 17 Glucose Level 97 92 70-105 MG/DL Calcium Level 9.1 9.4 8.5-10.1 MG/DL Magnesium Level 1.8 1.8-2.4 MG/DL Total Bilirubin 0.7 1.0 0.1-1.0 MG/DL Aspartate Amino Transf (AST/SGOT) 17 20 5-34 U/L Alanine Aminotransferase (ALT/SGPT) 15 15 0-55 U/L Alkaline Phosphatase 65 68 40-136 U/L Total Creatine Kinase 41 29-168 U/L Creatine Kinase MB 0.7 <6.6 NG/ML Troponin I < 0.30 < 0.30 < 0.30 <0.30 NG/ML B-Type Natriuretic Peptide 363.7 H <100.0 PG/ML Total Protein 6.6 7.0 6.4-8.2 GM/DL Albumin 3.7 3.9 3.2-4.5 GM/DL Amylase Level 52 25-125 U/L Lipase 42 8-78 U/L Triglycerides Level 78 <150 MG/DL Cholesterol Level 166 < 200 MG/DL LDL Cholesterol Direct 99 1-129 MG/DL VLDL Cholesterol 16 5-40 MG/DL HDL Cholesterol 53 40-60 MG/DL Physical Exam Vital Signs Vital Sign - Last 12Hours 07/28/17 07/28/17 15:53 23:25 Temp 98.2 Pulse 77 Resp 18 B/P (MAP) 184/105 (131) Pulse Ox 99 O2 Delivery Room Air O2 Flow Rate 3.00 Capillary Refill : Less Than 3 Seconds General Appearance: WD/WN, Mild Distress Eyes: Bilateral Eye Normal Inspection, Bilateral Eye PERRL, Bilateral Eye EOMI HEENT: PERRL/EOMI, TMs Normal, Normal ENT Inspection, Pharynx Normal Neck: Full Range of Motion, Normal Inspection, Non Tender, Supple, Carotid Bruit Respiratory: Chest Non Tender, Normal Breath Sounds, No Accessory Muscle Use, No Respiratory Distress, Crackles Cardiovascular: No Edema, No Gallop, No JVD, No Murmur, Normal Peripheral Pulses, Irregularly Irregular, Tachycardia Gastrointestinal: Normal Bowel Sounds, No Organomegaly, No Pulsatile Mass, Non Tender, Soft Back: Normal Inspection, No CVA Tenderness, No Vertebral Tenderness Extremity: Normal Capillary Refill, Normal Inspection, Normal Range of Motion, Non Tender, No Calf Tenderness, No Pedal Edema Neurologic/Psychiatric: Alert, Oriented x3, No Motor/Sensory Deficits, Normal Mood/Affect Skin: Normal Color, Warm/Dry Lymphatic: No Adenopathy A/P-Cardiology Admission Diagnosis Chest pain nonspecific etiology Dyspnea Persistent atrial fibrillation Coronary artery disease Hypertension Assessment/Plan Chest pain nonspecific etiology, atypical in presentation, pressure on the chest with exertion, last cardiac workup was done 2 years ago showing coronary ectasia with slow flow in the LAD otherwise small vessel disease. Medical therapy is recommended. Dyspnea on exertion, worsening recently, borderline tachycardic, I will evaluate 2-D echocardiogram. Persistent atrial fibrillation/permanent atrial fibrillation, maintained on Eliquis. Maintained on Toprol. Continue on current medication monitor heart rate and blood pressure. [id number] score is 3, yearly risk of stroke without oral anticoagulation is 3.2 percent. Patient is maintained on Eliquis, continue to monitor. Coronary artery disease, cardiac catheterization was done in August 2015 showing mild ectasia in the proximal LAD with slow flow in the proximal LAD at otherwise small vessel disease no significant obstructive disease. Continue to monitor, no changes are recommended. Mild bilateral nonobstructive carotid artery stenosis per most recent carotid duplex done September 2015. Continue to monitor. COPD, obstructive sleep apnea, using oxygen at night. Hypertension, restart home medication monitor blood pressure Hyperlipidemia, I will evaluate lipid profile Hypothyroidism managed by primary care physician Prediabetes, patient was educated on diet and weight loss. Obesity, BMI is 38, patient has been working on weight loss. Encouraged to continue with weight loss program Clinical Quality Measures AMI/AHF: ASA po Prior to arrival: No DVT/VTE Risk/Contraindication: Risk Factor Score Per Nursin RFS Level Per Nursing on Admit: 4+=Very High ANSON POMPA MD Jul 29, 2017 08:32
[2017-07-29] MEDS ORDERED: FLUT16SP22 NSEACH (08:57)
[2017-07-29] MEDS ORDERED: LISI-552 PO ×2 (08:57→13:43)
[2017-07-29] MEDS ORDERED: PATIENT MAY USE OWN MEDS, ALL MC SCH (09:00)
[2017-07-29] MEDS ORDERED: ASPIRIN E.C. 325 MG (ECOTRIN) TABLET PO SCH (09:00)
--- NOTE | 2017-07-29 09:19 | Diagnostic Imaging Report ---
INDICATION: Chest pain. Portable chest 4:45 AM FINDINGS: Heart size and pulmonary vascularity are normal. Lungs are clear. There are no effusions or pneumothoraces. IMPRESSION: Negative chest. Dictated by: Dictated on workstation # [id number]
[2017-07-29] MEDS ORDERED: APIXABAN 5 MG (ELIQUIS) TABLET PO SCH ×2 (09:45→21:00)
--- NOTE | 2017-07-29 11:56 | Short Stay Summary ---
History of Present Illness History of Present Illness Reason for visit/HPI 71yo woman with a history of CAD, rate-controlled atrial fibrillation, hypertension, hyperlipidemia, and obesity presented to ER last night with complaints of left sided leg and arm tingling as well as chest pain. Patient reports compliance with her medication regimen despite not following up with her side door worker, Dr Savage. Patient states she did not want to have to come to hospital again as she does not like being hospitalized. She did not have radiation, but the pain was retrosternal. She has a history of OSAS and wears oxygen at night for this d/t not being able to tolerate a CPAP mask. Date of Admission Jul 28, 2017 at 17:30 Date of Discharge July 29, 2017 Time Seen by Provider: 09:30 Attending Physician Tang Gomez MD Admitting Physician Brittany Castellanos DO Consult Dr Savage, Cardiology Allergies and Home Medications Allergies Coded Allergies: Penicillins (Verified Allergy, Mild, 01/04/14) Veflzev-Sca-Siy Reductase Inhibitor (Verified Allergy, Mild, 01/04/14) codeine (Verified Allergy, Mild, 01/04/14) opium tincture (Verified Allergy, Mild, 01/04/14) tramadol (Verified Allergy, Mild, 01/04/14) Home Medications Albuterol Sulfate 8.5 Gm Hfa.aer.ad, 2 PUFF INH Q4H PRN for SHORTNESS OF BREATH, (Reported) Apixaban 5 Mg Tablet, 5 MG PO BID, (Reported) Aspirin 81 Mg Tab.chew, 81 MG PO DAILY, #30 Prescribed by: TANG GOMEZ on 07/29/17 1158 Atorvastatin Calcium 10 Mg Tablet, 10 MG PO DAILY, (Reported) Cetirizine HCl 10 Mg Tablet, 10 MG PO HS, (Reported) Fluticasone Propionate 16 Gm [place].susp, 2 SPRAYS NSEACH HS, (Reported) Hydrochlorothiazide 25 Mg Tablet, 25 MG PO DAILY, (Reported) LAST FILLED #30 05-17-17 Levothyroxine Sodium 125 Mcg Tablet, 125 MCG PO DAILY, (Reported) Lisinopril 20 Mg Tablet, 20 MG PO DAILY, (Reported) Metoprolol Succinate 25 Mg Tab.er.24h, 25 MG PO DAILY, (Reported) Sennosides/Docusate Sodium 1 Each Tablet, 1 TAB PO BID, (Reported) Tizanidine HCl 4 Mg Tablet, 4 MG PO TID PRN for MUSCLE SPASMS, (Reported) Past Eonngst-Bysdjk-Zyhyjc Hx Patient Social History Marrital Status: Employed/Student: retired Alcohol Use: Occasionally Uses Number of Drinks Today: DD Alcohol Beverage of Choice: Rum Recreational Drug Use: No Smoking Status: Former Smoker Type Used: Cigarettes Physical Abuse Screen: No Sexual Abuse: No Recent Foreign Travel: No Contact w/other who traveled: No Recent Hopitalizations: No Recent Infectious Disease Expo: No Immunizations Up To Date Tetanus Booster (TDap): Unknown Date of Pneumonia Vaccine: Jul 18, 2015 Date of Influenza Vaccine: Jul 18, 2015 Seasonal Allergies Seasonal Allergies: Yes Surgeries Yes (DENTAL, HEMORRHOIDECTOMY, CARDIAC CATH X 2 ; CATARACTS) Cardiac, Eye Surgery, Rectal, Tubal Ligation Respiratory Yes (PNEUMONIA A CHILD; ) Currently Using CPAP: No (PATIENT WEARS 02 AT NIGHT (3L/NC) ) Currently Using BIPAP: No Cardiovascular Yes (CLEAN CATH 09/03 ) Atrial Fibrillation, Coronary Artery Disease, High Cholesterol, Hypertension Neurological Yes Neuropathy 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 System Hx 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 Disorders: No Sexually Transmitted Disease: No HIV/AIDS: No 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 Disorders: 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 Genitourinary Yes (INCONTINENCE) Bladder Infection, UTI-Chronic Gastrointestinal Yes Gastroesophageal Reflux, Chronic Constipation, Hemorrhoids, Irritable Bowel Musculoskeletal Yes Arthritis, Fibromyalgia, Chronic Back Pain Endocrine History of Endocrine Disorders: Yes (HYPOGLYCEMIA; OBESITY) Endocrine Disorders: Hypothyroidsim HEENT History of HEENT Disorders: Yes (WEARS GLASSES) HEENT Disorders: Cataract Hearing Impairment: Hard of Hearing Cancer No Psychosocial History of Psychiatric Problem: Yes Behavioral Health Disorders: Anxiety Integumentary History of Skin or Integumenta: No Blood Transfusions History of Blood Disorders: No Family Medical History Family Hx: Dementia 19 FATHER Drug abuse G8 BROTHER G8 SISTER FH: pancreatic cancer 19 MOTHER ( OF PANCREATIC CA AGE 67) Thyroid disease 19 MOTHER Constitutional: see HPI All Other Systems Reviewed Negative Unless Noted: Yes Physical Exam Vital Signs Vital Sign - Last 12Hours 07/28/17 07/28/17 15:53 23:25 Temp 98.2 Pulse 77 Resp 18 B/P (MAP) 184/105 (131) Pulse Ox 99 O2 Delivery Room Air O2 Flow Rate 3.00 Capillary Refill : Less Than 3 Seconds General Appearance: No Apparent Distress, WD/WN HEENT: PERRL/EOMI, Normal ENT Inspection, Pharynx Normal Neck: Full Range of Motion, Normal Inspection, Non Tender, Supple, Carotid Bruit Respiratory: Chest Non Tender, Lungs Clear, Normal Breath Sounds, No Accessory Muscle Use, No Respiratory Distress Cardiovascular: No Edema, No Gallop, No JVD, No Murmur, Normal Peripheral Pulses, Irregularly Irregular Gastrointestinal: Normal Bowel Sounds, No Organomegaly, No Pulsatile Mass, Non Tender, Soft Back: Normal Inspection, No CVA Tenderness, No Vertebral Tenderness Extremity: Normal Capillary Refill, Normal Inspection, Normal Range of Motion, Non Tender, No Calf Tenderness, No Pedal Edema Neurologic/Psychiatric: Alert, Oriented x3, No Motor/Sensory Deficits, Normal Mood/Affect Skin: Normal Color, Warm/Dry Clinical Quality Measures AMI/AHF: ASA po Prior to arrival: No DVT/VTE Risk/Contraindication: Risk Factor Score Per Nursin RFS Level Per Nursing on Admit: 4+=Very High Short Stay Diagnosis Discharge Diagnosis-Short Stay Admission Diagnosis: CORONARY ARTERY DISEASE PERMANENT ATRIAL FIBRILLATION HYPERTENSION HYPERLIPIDEMIA OSAS MORBID OBESITY Final Discharge Diagnosis: SAME Conclusion Labs Laboratory Tests 07/28/17 15:40: White Blood Count 4.4, Red Blood Count 4.42, Hemoglobin 11.8, Hematocrit 36, Mean Corpuscular Volume 81, Mean Corpuscular Hemoglobin 27, Mean Corpuscular Hemoglobin Concent 33, Red Cell Distribution Width 13.5, Platelet Count 246, Mean Platelet Volume 9.4, Neutrophils (%) (Auto) 58, Lymphocytes (%) (Auto) 30, Monocytes (%) (Auto) 8, Eosinophils (%) (Auto) 4, Basophils (%) (Auto) 1, Neutrophils # (Auto) 2.5, Lymphocytes # (Auto) 1.3, Monocytes # (Auto) 0.3, Eosinophils # (Auto) 0.2, Basophils # (Auto) 0.0, Prothrombin Time 16.1H, INR Comment 1.3, Activated Partial Thromboplast Time 34, Sodium Level 142, Potassium Level 4.0, Chloride Level 109H, Carbon Dioxide Level 25, Anion Gap 8, Blood Urea Nitrogen 21H, Creatinine 1.01, Estimat Glomerular Filtration Rate 54 , BUN/Creatinine Ratio 21, Glucose Level 97, Calcium Level 9.1, Magnesium Level 1.8, Total Bilirubin 0.7, Aspartate Amino Transf (AST/SGOT) 17, Alanine Aminotransferase (ALT/SGPT) 15, Alkaline Phosphatase 65, Total Creatine Kinase 41, Creatine Kinase MB 0.7, Troponin I < 0.30, B-Type Natriuretic Peptide 363.7H , Total Protein 6.6, Albumin 3.7, Amylase Level 52, Lipase 42 07/28/17 22:05: Troponin I < 0.30 07/29/17 04:30: White Blood Count 5.1, Red Blood Count 4.68, Hemoglobin 12.4, Hematocrit 38, Mean Corpuscular Volume 81, Mean Corpuscular Hemoglobin 27, Mean Corpuscular Hemoglobin Concent 33, Red Cell Distribution Width 13.5, Platelet Count 251, Mean Platelet Volume 9.3, Neutrophils (%) (Auto) 58, Lymphocytes (%) (Auto) 31, Monocytes (%) (Auto) 8, Eosinophils (%) (Auto) 3, Basophils (%) (Auto) 0, Neutrophils # (Auto) 2.9, Lymphocytes # (Auto) 1.6, Monocytes # (Auto) 0.4, Eosinophils # (Auto) 0.2, Basophils # (Auto) 0.0, Sodium Level 141, Potassium Level 3.2L, Chloride Level 102, Carbon Dioxide Level 27, Anion Gap 12, Blood Urea Nitrogen 19H, Creatinine 1.11, Estimat Glomerular Filtration Rate 49, BUN/ Creatinine Ratio 17, Glucose Level 92, Calcium Level 9.4, Total Bilirubin 1.0, Aspartate Amino Transf (AST/SGOT) 20, Alanine Aminotransferase (ALT/SGPT) 15, Alkaline Phosphatase 68, Troponin I < 0.30, Total Protein 7.0, Albumin 3.9, Triglycerides Level 78, Cholesterol Level 166, LDL Cholesterol Direct 99, VLDL Cholesterol 16, HDL Cholesterol 53 07/29/17 10:54: Glucometer 157H Conclusion/Plan Patient was observed overnight in light of her history of CAD. She has small vessel disease not amenable to intervention. Medical management is indicated, and compliance was encouraged. She does have the rate controlled atrial fibrillation and needs to contine on her anticoagulation d/t her increased risk score (CHADS2). We are not going to change any medications today. She will get an echo d/t to borderline tachycardia today. She should follow up with Martin in tne coming weeks. We educated Sherley that her compliance with medical therapy as well as weight loss would be most helpful in terms of reducing morbidity and mortality. Copy Copies To 1: TANG GUILLEN APRN, MD Jul 29, 2017 11:56 am
[2017-07-29] MEDS ORDERED: ASPI-999 PO (11:58)
--- NOTE | 2017-07-29 12:21 | Discharge Instructions ---
Discharge [facility] Discharge Medications New, Converted or Re-Newed RX: Other New Medications: Aspirin (Aspirin) 81 Mg Tab.chew 81 MG PO DAILY, #30 TAB Continued Medications: Albuterol Sulfate (Proair Hfa) 8.5 Gm Hfa.aer.ad 2 PUFF INH Q4H PRN for SHORTNESS OF BREATH, INHALER Apixaban (Eliquis) 5 Mg Tablet 5 MG PO BID, TAB Atorvastatin Calcium (Atorvastatin Calcium) 10 Mg Tablet 10 MG PO DAILY, TAB Cetirizine HCl (Cetirizine HCl) 10 Mg Tablet 10 MG PO HS, TAB Fluticasone Propionate (Fluticasone Propionate) 16 Gm [place].susp 2 SPRAYS NSEACH HS, EA Hydrochlorothiazide (Hydrochlorothiazide) 25 Mg Tablet 25 MG PO DAILY, TAB LAST FILLED #30 05-17-17 Levothyroxine Sodium (Levothyroxine Sodium) 125 Mcg Tablet 125 MCG PO DAILY Lisinopril (Lisinopril) 20 Mg Tablet 20 MG PO DAILY, TAB Metoprolol Succinate (Metoprolol Succinate) 25 Mg Tab.er.24h 25 MG PO DAILY Sennosides/Docusate Sodium (Docusate Sodium-Senna Tablet) 1 Each Tablet 1 TAB PO BID, TAB Tizanidine HCl (Tizanidine HCl) 4 Mg Tablet 4 MG PO TID PRN for MUSCLE SPASMS, TAB Patient Instructions Goal/Follow Up Appt: BOY MERCADO APRN AUGUST 10 AT 1:20 --PLEASE FOLLOW UP WITH DR POMPA RECOMMENDED Patient Instructions: PLEASE TAKE ALL MEDICATIONS PRESCRIBED Return to The Hospital For: SHORTNESS OF BREATH, CHEST PAIN Activity & Diet Discharge Diet: Low Sodium Diet, Cardiac Diet Activity as Tolerated: Yes Orders-Post D/C & Referrals Pneu Vac Indicated: Yes Copy Copies To 1: TANG GUILLEN APRN, MD Jul 29, 2017 12:00 pm
[2017-07-29 12:29] VITALS: BP 133/94
[2017-07-29 14:05] VITALS: BP 133/94
[2017-07-29] MEDS ORDERED: FUROSEMIDE 20 MG (LASIX) TAB PO SCH (17:00)
--- OUTSIDE RECORDS SUMMARY | 2017-07-29 19:07 | XMS REPORT ---
Author Author BOY MERCADO Organization [facility] Address [address] [place] [address] Care Team Providers Care Aligner Typewriter Name Role Phone ROGELIO BOY Unavailable PROBLEMS Type Condition ICD9-CM Code [id number] Code Onset Dates Condition Status SNOMED Code Problem Sleep apnea in adult G47.33 Active 14061635 Problem H/O fibromyalgia Z87.39 Active 842618185 Problem Hypertension I10 Active 00160244 Problem Asymptomatic age-related postmenopausal state Z78.0 Active 05099579 Problem Hypothyroidism, unspecified E03.9 Active 79837129 Problem Allergic rhinitis J30.9 Active 72021769 Problem Osteopenia of left lower leg M85.862 Active 890620220 Problem Slow transit constipation K59.01 Active 46868503 Problem Atrial fibrillation I48.91 Active 54460259 Problem Morbid obesity E66.01 Active 179464771 Problem Mild persistent asthma without complication J45.30 Active 487044118 Problem Hyperlipidemia E78.5 Active 58578454 ALLERGIES No Known Allergies SOCIAL HISTORY No smoking Hx information available PLAN OF CARE VITAL SIGNS MEDICATIONS No Known Medications RESULTS No Results PROCEDURES No Known procedures IMMUNIZATIONS No Known Immunizations
--- OUTSIDE RECORDS SUMMARY | 2017-07-29 19:07 | XMS REPORT ---
Author Author MERCADOBOY Suarez Organization [facility] Address [address] [place] [address] Care Team Providers Care Alterations Sewer Name Role Phone MERCADOBOY Suarez Unavailable PROBLEMS Type Condition ICD9-CM Code [id number] Code Onset Dates Condition Status SNOMED Code Problem Sleep apnea in adult G47.33 Active 61601516 Problem H/O fibromyalgia Z87.39 Active 213457943 Problem Hypertension I10 Active 22801374 Problem Asymptomatic age-related postmenopausal state Z78.0 Active 96750969 Problem Hypothyroidism, unspecified E03.9 Active 20220912 Problem Allergic rhinitis J30.9 Active 97783843 Problem Osteopenia of left lower leg M85.862 Active 035076995 Problem Slow transit constipation K59.01 Active 90813137 Problem Atrial fibrillation I48.91 Active 65910687 Problem Morbid obesity E66.01 Active 269136290 Problem Mild persistent asthma without complication J45.30 Active 895070992 Problem Hyperlipidemia E78.5 Active 98731729 ALLERGIES Substance Reaction Event Type Date Status Simvastatin Pt states that she is allergic to all statins Drug Allergy Sep, Active Penicillin V Potassium vomiting Drug Allergy Sep, Active Coricidin D hyperventilate, anxiety Drug Allergy Sep, Active SOCIAL HISTORY Never Assessed PLAN OF CARE Activity Details Follow Up 3 Months Reason:[facility] VITAL SIGNS Height 67 in 2016-10-01 Weight 284 lbs 2016-10-01 Temperature 97.4 degrees Fahrenheit 2016-10-01 Heart Rate 60 bpm 2016-10-01 Respiratory Rate 18 2016-10-01 BMI 44.48 kg/m2 2016-10-01 Blood pressure systolic 124 mmHg 2016-10-01 Blood pressure diastolic 86 mmHg 2016-10-01 MEDICATIONS Medication Instructions Dosage Frequency Start Date End Date Duration Status Gabapentin 300 MG TAKE ONE CAPSULE BY MOUTH TWO TO THREE TIMES DAILY NEEDED 90 days Active ProAir HFA 108 (90 Base) MCG/ACT Inhalation every 4 hrs 2 puffs as needed 4h 12 months Active Eliquis 5 mg Orally 2 times a day 1 tablet 12h 6 Months Active Diltiazem HCl ER 240 MG Orally Once a day 1 capsule on an empty stomach in the morning 24h Sep, 90 days Active Advair Diskus 250-50 MCG/DOSE Inhalation Twice a day 1 puff 12h 12 months Active Oxygen ... 2-3L while sleeping Active Fish Oil 1000 MG Orally Twice a day 1 capsule 12h Active Metoprolol Succinate ER 25 MG Orally Once a day 1 tablet 24h 90 days Active Colace 100 mg Orally Once a day 1 capsule as needed 24h Jun, 90 days Active Flonase 50 MCG/ACT Nasally Once a day 2 spray in each nostril 24h 12 months Active Docusate Sodium 100 MG Orally Once a day 1 capsule as needed 24h Active Lisinopril 20 MG Orally Once a day 1/2 tablet 24h Jun, 90 days Active Hydrochlorothiazide 25 MG Orally Once a day 1 tablet 24h 90 days Active Atorvastatin Calcium 10 mg Orally Once a day 1 tablet 24h 90 days Active Levothyroxine Sodium 125 mcg Orally Once a day 1 tablet 24h 90 days Active RESULTS No Results PROCEDURES Procedure Date Ordered Result Body Site [facility] VISIT ESTABLISHED PATIENT October 01, 2016 IMMUNIZATIONS No Known Immunizations MEDICAL (GENERAL) HISTORY Type Description Date Medical History Hypertension Medical History Fibromyalgia Medical History Asthma Medical History A-fib on Eliquis Medical History Hypothyroidism Medical History Hyperlipidemia Medical History Obesity Medical History Moderate obstructive sleep apnea - c-pap ([place]) 14cm pressure prescribed; currently on oxygen at night 2-3L Medical History Mild CAD - heart cath 08/2015 Medical History Dexa scan- 12/24/16- Lumbar T-score -0.4, right femoral neck is -0.9 and left side is -1 Surgical History tubal ligation Surgical History oral surgery Surgical History cataract-lens implants Surgical History hemorrhoidectomy Hospitalization History PID Hospitalization History Influenza-like illness; A-fib w/ [facility]VR 09/24/2015
--- OUTSIDE RECORDS SUMMARY | 2017-07-29 19:08 | XMS REPORT ---
Author Author ROGELIO BOY Organization [facility] Address [address] [place] [address] Care Team Providers Care Art Director Name Role Phone ROGELIO BOY Unavailable PROBLEMS Type Condition ICD9-CM Code [id number] Code Onset Dates Condition Status SNOMED Code Problem Sleep apnea in adult G47.33 Active 59346618 Problem H/O fibromyalgia Z87.39 Active 564334897 Problem Hypertension I10 Active 22937148 Problem Asymptomatic age-related postmenopausal state Z78.0 Active 00778489 Problem Hypothyroidism, unspecified E03.9 Active 39247367 Problem Allergic rhinitis J30.9 Active 34984372 Problem Osteopenia of left lower leg M85.862 Active 547410465 Problem Slow transit constipation K59.01 Active 81042559 Problem Atrial fibrillation I48.91 Active 29507754 Problem Morbid obesity E66.01 Active 975007586 Problem Mild persistent asthma without complication J45.30 Active 579254949 Problem Hyperlipidemia E78.5 Active 34639232 ALLERGIES Substance Reaction Event Type Date Status Simvastatin Pt states that she is allergic to all statins Drug Allergy November, Active Penicillin V Potassium vomiting Drug Allergy November, Active Coricidin D hyperventilate, anxiety Drug Allergy November, Active SOCIAL HISTORY Never Assessed PLAN OF CARE Activity Details Follow Up 3 Months Reason:[facility] VITAL SIGNS Height 67 in 2016-11-26 Weight 280.7 lbs 2016-11-26 Temperature 98.6 degrees Fahrenheit 2016-11-26 Heart Rate 72 bpm 2016-11-26 Respiratory Rate 18 2016-11-26 BMI 43.96 kg/m2 2016-11-26 Blood pressure systolic 123 mmHg 2016-11-26 Blood pressure diastolic 81 mmHg 2016-11-26 MEDICATIONS Medication Instructions Dosage Frequency Start Date End Date Duration Status Levothyroxine Sodium 125 mcg Orally Once a day 1 tablet 24h 90 days Active Lisinopril 20 MG Orally Once a day 1/2 tablet 24h Jun, 90 days Active Fish Oil 1000 MG Orally Twice a day 1 capsule 12h Active Docusate Sodium 100 MG Orally Once a day 1 capsule as needed 24h Active Diltiazem HCl ER 240 MG Orally Once a day 1 capsule on an empty stomach in the morning 24h Sep, 90 days Active Flonase 50 MCG/ACT Nasally Once a day 2 spray in each nostril 24h 12 months Active Colace 100 mg Orally Once a day 1 capsule as needed 24h Jun, 90 days Active Eliquis 5 mg Orally 2 times a day 1 tablet 12h 6 Months Active Atorvastatin Calcium 10 mg Orally Once a day 1 tablet 24h 90 days Active Metoprolol Succinate ER 25 MG Orally Once a day 1 tablet 24h 90 days Active Advair Diskus 250-50 MCG/DOSE Inhalation Twice a day 1 puff 12h 12 months Active Hydrochlorothiazide 25 MG Orally Once a day 1 tablet 24h 90 days Active Oxygen ... 2-3L while sleeping Active ProAir HFA 108 (90 Base) MCG/ACT Inhalation every 4 hrs 2 puffs as needed 4h 12 months Active Gabapentin 300 MG TAKE ONE CAPSULE BY MOUTH TWO TO THREE TIMES DAILY NEEDED 90 days Active RESULTS Name Result Date Reference Range DEXA 2016-12-24 PROCEDURES Procedure Date Ordered Result Body Site ANNUAL WELLNESS VST; PPS SUBSQT VST November 26, 2016 [facility] VISIT ESTABLISHED PATIENT November 26, 2016 IMMUNIZATIONS No Known Immunizations MEDICAL (GENERAL) [...]
--- OUTSIDE RECORDS SUMMARY | 2017-07-29 19:09 | XMS REPORT | Continuity of Care Document ---
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 07/29/17 04:30 Blood leukocytes automated count (number/volume) 5.1 10*3/uL 4.3-11.0 Blood erythrocytes automated count (number/volume) 4.68 10*6/uL 4.35-5.85 Venous blood hemoglobin measurement (mass/volume) 12.4 g/dL 11.5-16.0 Blood hematocrit (volume fraction) 38 % 35-52 Automated erythrocyte mean corpuscular volume 81 [foz_us] 80-99 Automated erythrocyte mean corpuscular hemoglobin (mass per erythrocyte) 27 pg 25-34 Automated erythrocyte mean corpuscular hemoglobin concentration measurement ( mass/volume) 33 g/dL 32-36 Automated erythrocyte distribution width ratio 13.5 % 10.0-14.5 Automated blood platelet count (count/volume) 251 10*3/uL 130-400 Automated blood platelet mean volume measurement 9.3 [foz_us] 7.4-10.4 Automated blood neutrophils/100 leukocytes 58 % 42-75 Automated blood lymphocytes/100 leukocytes 31 % 12-44 Blood monocytes/100 leukocytes 8 % 0-12 Automated blood eosinophils/100 leukocytes 3 % 0-10 Automated blood basophils/100 leukocytes 0 % 0-10 Blood neutrophils automated count (number/volume) 2.9 10*3 1.8-7.8 Blood lymphocytes automated count (number/volume) 1.6 10*3 1.0-4.0 Blood monocytes automated count (number/volume) 0.4 10*3 0.0-1.0 Automated eosinophil count 0.2 10*3/uL 0.0-0.3 Automated blood basophil count (count/volume) 0.0 10*3/uL 0.0-0.1 Comprehensive metabolic panel - 07/29/17 04:30 Serum or plasma sodium measurement (moles/volume) 141 mmol/L 135-145 Serum or plasma potassium measurement (moles/volume) 3.2 mmol/L 3.6-5.0 Serum or plasma chloride measurement (moles/volume) 102 mmol/L 98-107 Carbon dioxide 27 mmol/L 21-32 Serum or plasma anion gap determination (moles/volume) 12 mmol/L 5-14 Serum or plasma urea nitrogen measurement (mass/volume) 19 mg/dL 7-18 Serum or plasma creatinine measurement (mass/volume) 1.11 mg/dL 0.60-1.30 Serum or plasma urea nitrogen/creatinine mass ratio 17 NRG Serum or plasma creatinine measurement with calculation of estimated glomerular filtration rate 49 NRG Serum or plasma glucose measurement (mass/volume) 92 mg/dL 70-105 Serum or plasma calcium measurement (mass/volume) 9.4 mg/dL 8.5-10.1 Serum or plasma total bilirubin measurement (mass/volume) 1.0 mg/dL 0.1-1.0 Serum or plasma alkaline phosphatase measurement (enzymatic activity/volume) 68 U/L 40-136 Serum or plasma aspartate aminotransferase measurement (enzymatic activity/ volume) 20 U/L 5-34 Serum or plasma alanine aminotransferase measurement (enzymatic activity/volume ) 15 U/L 0-55 Serum or plasma protein measurement (mass/volume) 7.0 g/dL 6.4-8.2 Serum or plasma albumin measurement (mass/volume) 3.9 g/dL 3.2-4.5 Serum or plasma troponin i.cardiac measurement (mass/volume) - 07/29/17 04:30 Serum or plasma troponin i.cardiac measurement (mass/volume) < ng/ mL <0.30 Lipid 1996 panel - 07/29/17 04:30 Serum or plasma triglyceride measurement (mass/volume) 78 mg/dL <150 Serum or plasma cholesterol measurement (mass/volume) 166 mg/dL < 200 Serum or plasma cholesterol in HDL measurement (mass/volume) 53 mg/ dL 40-60 Cholesterol in LDL [mass/volume] in serum or plasma by direct assay 99 mg/dL 1-129 Serum or plasma cholesterol in VLDL measurement (mass/volume) 16 mg/ dL 5-40 Capillary blood glucose measurement by glucometer (mass/volume) - 07/29/17 10: 54 Capillary blood glucose measurement by glucometer (mass/volume) 157 mg/dL 70-110 Encounters ACCT No. Visit Date/Time Discharge Status Pt. Type Provider Facility Loc./Unit Complaint [id number] 12/24/2016 10:07:00 12/24/2016 23:59:59 CLS Outpatient BOY MERCADO APRN [facility] RAD Z78.0 [id number] 12/23/2016 18:21:00 12/23/2016 20:58:00 DIS Emergency EV DARBY APRN [facility] ER RT SIDED RIB/BACK/KNEE PAIN [id number] 09/24/2015 13:52:00 09/30/2015 13:32:00 DIS Inpatient TANG CARLOS MD [facility] 4TH INFLUENZA LIKE ILLNESS A- FIB W/RVR [id number] 08/21/2015 07:29:00 08/21/2015 15:05:00 DIS Outpatient ANSON POMPA MD [facility] CATH ABNORMAL STRESS,HLP, OBESITY [id number] 07/10/2015 07:53:00 07/10/2015 23:59:59 CLS Outpatient ANSON POMPA MD [facility] CARD AF,CHEST PAIN SYNDROME, HTN,HYPERLIPIDEMIA,JANELLE [id number] 06/21/2015 14:13:00 06/21/2015 23:59:59 CLS Outpatient BOY MERCADO APRN [facility] CARD AFIB [id number] 03/28/2014 07:20:00 03/28/2014 23:59:59 CLS Outpatient ZEB MONTERO MD [facility] RAD SCREENING [id number] 02/19/2014 18:07:00 02/19/2014 23:59:59 CLS Outpatient BEL MONAE [facility] RAD OA [id number] 01/04/2014 23:31:00 01/05/2014 00:56:00 DIS Emergency YARITZA LÓPEZ DO [facility] ER RT KNEE PAIN [id number] 07/28/2017 16:16:00 Document Registration [id number] 10/17/2015 00:07:00 ACT Inpatient ANSON POMPA MD [facility] ICU CHEST PAIN;CHRONIC A-FIB [id number] 06/21/2015 14:07:00 Document Registration [id number] 06/21/2015 14:07:00 Document Registration [id number] 04/15/2012 08:52:00 Document Registration [id number] 12/10/2011 09:16:00 Document Registration [id number] 11/06/2011 10:24:00 Document Registration [id number] 10/21/2011 21:36:00 Document Registration [id number] 06/03/2011 18:16:00 Document Registration [id number] 03/25/2010 09:39:00 Document Registration [id number] 01/23/2010 12:53:00 Document Registration
--- OUTSIDE RECORDS SUMMARY | 2017-07-29 19:19 | XMS REPORT | Continuity of Care Document ---
Author Author [facility] Address Unknown Phone Unavailable Allergies Active Description Code Type Severity Reaction Onset Reported/Identified Relationship to Patient Clinical Status Yes aspirin [id number] Drug Allergy Mild N/A 01/04/2014 Yes codeine [id number] Drug Allergy Mild N/A 01/04/2014 Yes opium tincture [id number] Drug Allergy Mild N/A 01/04/2014 Yes Penicillins [id number] Drug Allergy Mild N/A 01/04/2014 Yes Fwtdyxr-Thy-Fne Reductase Inhibitor [id number] Drug Allergy Mild N/A 2013 Yes tramadol [id number] Drug Allergy Mild N/A 01/04/2014 Medications There [...] ANSON POMPA MD Ot I10 07/30/2015 PEÑA EVRIN, ANSON Aparicio Ot I48.0 07/30/2015 PEÑA ERVIN, [...] MD Ot I25.10 ATHSCL HEART DISEASE OF [place] CORONARY 08/21/2015 ANSON POMPA MD Ot I48.0 PAROXYSMAL ATRIAL FIBRILLATION 08/21/2015 ANSON POMPA MD, Ot J44.9 CHRONIC OBSTRUCTIVE PULMONARY DISEASE, U 08/21/2015 ANSON POMPA MD Ot R94.39 ABNORMAL RESULT OF OTHER CARDIOVASCULAR 08/21/2015 ANSON POMPA MD Ot Z68.41 BODY MASS INDEX (BMI) 40.0-44.9, ADULT 08/21/2015 ANSON POMPA MD Ot Z79.01 AUTHORIZATION NURSE (CURRENT) USE OF ANTICOAGULANT 08/21/2015 ANSON POMPA MD Ot Z79.899 OTHER HALF-WAY (CURRENT) DRUG THERAPY 08/21/2015 ANSON POMPA MD, [...] 401.9 09/24/2015 Ot 244.9 09/24/2015 BEL MONAE HAND I BLOCKER Ot 715.36 09/24/2015 WINSTON ERVIN, ZEB Clark [...] 401.9 09/24/2015 Ot 244.9 09/24/2015 BEL MONAE HAND I BLOCKER Ot 715.36 09/24/2015 WINSTON ERVIN, ZEB Clark Ot V76.12 09/24/2015 BOY MERCADO APRN Ot I48.91 09/24/2015 PEÑA ERVIN, ANSON Aparicio Ot E78.2 09/24/2015 PEÑA ERVIN, ANSON Aparicio Ot G47.33 09/24/2015 PEÑA ERVIN, ANSON Aparicio Ot I10 09/24/2015 PEÑA EVRIN, ANSON Aparicio Ot I48.0 09/24/2015 PEÑA ERVIN, [...] 09/26/2015 TANG CARLOS MD Ot J44.9 09/26/2015 TANG CARLOS MD Ot J45.909 09/26/2015 TANG CARLOS MD Ot M79.7 09/26/2015 TANG CARLOS MD Ot R07.89 09/26/2015 TANG CARLOS MD Ot R50.9 09/26/2015 TANG CARLOS MD Ot Z68.41 09/26/2015 TANG CARLOS MD [...] 09/26/2015 TERRANCE ERVIN, TANG Trent Ot Z87.891 09/27/2015 TANG CARLOS MD Ot [...] Trent Ot E66.9 09/28/2015 TERRANCE ERVIN, TANG Trent Ot E78.5 09/28/2015 TERRANCE ERVIN, TANG Trent [...] MD Ot I25.10 ATHSCL HEART DISEASE OF [place] CORONARY 09/30/2015 TANG CARLOS MD, Ot I48.0 [...] ADULT 09/30/2015 TANG CARLOS MD, Ot Z79.01 AUTHORIZATION NURSE (CURRENT) USE OF ANTICOAGULANT 09/30/2015 TANG CARLOS [...] MD Ot I25.10 ATHSCL HEART DISEASE OF [place] CORONARY 10/17/2015 ANSON POMPA MD Ot I48.91 UNSPECIFIED ATRIAL FIBRILLATION 10/17/2015 ANSON POMPA MD Ot 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 10/17/2015 ASNON POMPA MD Ot J44.9 CHRONIC OBSTRUCTIVE PULMONARY [...] MAMMO-MALIGN NEOPLASM OF [place] 12/09/2016 BOY MERCADO CLINIC LEAD Ot I48.91 UNSPECIFIED ATRIAL FIBRILLATION 12/09/2016 ANSON POMPA MD Ot E78.2 MIXED HYPERLIPIDEMIA 12/09/2016 ANSON POMPA MD, Ot G47.33 OBSTRUCTIVE SLEEP APNEA (ADULT) (PEDIATR 12/09/2016 ANSON POMPA MD Ot I10 ESSENTIAL (PRIMARY) HYPERTENSION 12/09/2016 ANSON POMPA MD Ot I48.0 PAROXYSMAL ATRIAL FIBRILLATION 12/09/2016 ANSON POMPA MD Ot R07.89 OTHER CHEST PAIN 12/09/2016 BOY MERCADO CLINIC LEAD Ot Z78.0 ASYMPTOMATIC MENOPAUSAL STATE 12/09/2016 BOY MERCADO CLINIC LEAD Ot Z78.0 ASYMPTOMATIC MENOPAUSAL STATE 12/10/2016 BOY MERCADO CLINIC LEAD Ot Z78.0 ASYMPTOMATIC MENOPAUSAL STATE 12/23/2016 Ot 244.9 HYPOTHYROIDISM NOS 12/23/2016 Ot 272.4 HYPERLIPIDEMIA NEC/NOS 12/23/2016 Ot 401.9 HYPERTENSION NOS 12/23/2016 Ot 244.9 HYPOTHYROIDISM NOS 12/23/2016 Ot 272.4 HYPERLIPIDEMIA NEC/NOS 12/23/2016 Ot 401.9 HYPERTENSION NOS 12/23/2016 Ot 244.9 HYPOTHYROIDISM NOS 12/23/2016 BEL MONAE HAND I BLOCKER Ot 715.36 LOC OSTEOARTH NOS-L/LEG 12/23/2016 WINSTON ERVIN, ZEB Clark Ot V76.12 OTH SCREEN MAMMO-MALIGN NEOPLASM OF [place] 12/23/2016 MERCADO BOY Graham CLINIC LEAD Ot I48.91 UNSPECIFIED ATRIAL FIBRILLATION 12/23/2016 ANSON [...] APRN Ot I25.10 ATHSCL HEART DISEASE OF [place] CORONARY 12/23/2016 EV DARBY APRN Ot M54.5 [...] OTH SCREEN MAMMO-MALIGN NEOPLASM OF [place] 12/23/2016 OBY MERCADO APRN Ot I48.91 UNSPECIFIED ATRIAL FIBRILLATION [...] Status Pt. Type Provider Facility Loc./Unit Complaint [id number] 12/24/2016 10:07:00 12/24/2016 23:59:59 CLS Outpatient BOY MERCADO APRN [facility] RAD Z78.0 [id number] 12/23/2016 18:21:00 12/23/2016 20:58:00 DIS Emergency EV DARBY APRN [facility] ER RT SIDED RIB/BACK/KNEE PAIN [id number] 09/24/2015 13:52:00 09/30/2015 13:32:00 DIS Inpatient TANG CARLOS MD [facility] 4TH INFLUENZA LIKE ILLNESS A- FIB W/RVR [id number] 08/21/2015 07:29:00 08/21/2015 15:05:00 DIS Outpatient ANSON POMPA MD [facility] CATH ABNORMAL STRESS,HLP, OBESITY [id number] 07/10/2015 07:53:00 07/10/2015 23:59:59 CLS Outpatient ANSON POMPA MD [facility] CARD AF,CHEST PAIN SYNDROME, HTN,HYPERLIPIDEMIA,JANELLE [id number] 06/21/2015 14:13:00 06/21/2015 23:59:59 CLS Outpatient BOY MERCADO APRN [facility] CARD AFIB [id number] 03/28/2014 07:20:00 03/28/2014 23:59:59 CLS Outpatient ZEB MONTERO MD [facility] RAD SCREENING [id number] 02/19/2014 18:07:00 02/19/2014 23:59:59 CLS Outpatient BEL MONAE [facility] RAD OA [id number] 01/04/2014 23:31:00 01/05/2014 00:56:00 DIS Emergency YARITZA LÓPEZ DO [facility] ER RT KNEE PAIN [id number] 07/28/2017 16:16:00 Document Registration [id number] 10/17/2015 00:07:00 ACT Inpatient ANSON POMPA MD [facility] ICU CHEST PAIN;CHRONIC A-FIB [id number] 06/21/2015 14:07:00 Document Registration [id number] 06/21/2015 14:07:00 Document Registration [id number] 04/15/2012 08:52:00 Document Registration [id number] 12/10/2011 09:16:00 Document Registration [id number] 11/06/2011 10:24:00 Document Registration [id number] 10/21/2011 21:36:00 Document Registration [id number] 06/03/2011 18:16:00 Document Registration [id number] 03/25/2010 09:39:00 Document Registration [id number] 01/23/2010 12:53:00 Document Registration
== END 2017-07-29 14:05 | disposition home or self-care (01) ==
LOC: EDUNIT# 15:36 → ER 15:37 → UNDOADMOB 17:30 → ICU 17:30 → UNDODISOB 07-29 14:05
PROVIDERS: ADMIT Pediatrics; ATTEND Pediatrics
DX: I25.10 Atherosclerotic heart disease of native coronary artery without angina pectoris (principal); I48.2 Chronic atrial fibrillation; I10 Essential (primary) hypertension; E78.5 Hyperlipidemia, unspecified; E78.00 Pure hypercholesterolemia, unspecified; G47.33 Obstructive sleep apnea (adult) (pediatric); E66.01 Morbid (severe) obesity due to excess calories; K21.9 Gastro-esophageal reflux disease without esophagitis; K59.09 Other constipation; M79.7 Fibromyalgia; E03.9 Hypothyroidism, unspecified; F41.9 Anxiety disorder, unspecified; Z87.891 Personal history of nicotine dependence; I65.23 Occlusion and stenosis of bilateral carotid arteries; J44.9 Chronic obstructive pulmonary disease, unspecified; R73.03 Prediabetes; Z68.38 Body mass index [BMI] 38.0-38.9, adult; Z88.0 Allergy status to penicillin; Z88.5 Allergy status to narcotic agent
CPT/HCPCS: 36415; 71045; 71275; 80053; 80061; 82150; 82550; 82553; 82962; 83690; 83735; 83880; 84484; 85025; 85610; 85730; 93005; 93041; 93306; 96361; 96374

== ENCOUNTER → 2017-08-25 | Outpatient (CLI) | payer MEDICARE, MEDICAID ==
[~2017-08-25] VITALS: Ht 170.2 cm; Wt 113.4 kg
[~2017-08-25] MED LIST changes: +ASPI-999 PO; +CATHETER FLUSH 10 ML SYR IV PRN; +CETI10TA17 PO; +FLUT16SP22 NSEACH; +LISI-552 PO; +REGADENOSON 0.4 MG/5 ML SYR (LEXISCAN) IV ONE; +SENN1TAB6 PO; +TIZA4TAB3 PO
[2017-08-25 13:31] VITALS: BP 192/110
--- NOTE | 2017-08-25 17:55 | STRESS TEST ---
DATE OF SERVICE: 08/25/2017 LEXISCAN MYOVIEW STRESS TEST REPORT Baseline heart rate is 91. Baseline blood pressure 182/117. Baseline EKG is atrial fibrillation with no ischemic changes. In summary, the patient received 10.6 mCi of technetium-99 Myoview and the resting images were obtained. Then, the patient received 0.4 mg of Lexiscan followed by 28.5 mCi of technetium-99 Myoview. Throughout the test, there were no EKG changes. The resting and stress images were reviewed and compared in the short axis, horizontal long axis, and vertical long axis views. Review of the images showed breast attenuation with mild decrease uptake at the basal to mid anterior wall with mild reversibility, mild decreased uptake at the basal to mid inferior wall with subtle reversibility. SSS is 5, SDS 5, TID value 1.1. On the gated images, the left ventricle appeared to be normal in size with normal contractility. Calculated ejection fraction 56%. CONCLUSION: 1. The patient tolerated Lexiscan well. 2. Baseline atrial fibrillation persisted throughout test. 3. Extracardiac attenuation with subtle abnormality most probably due to extracardiac attenuation. No significant ischemia was noted. 4. Normal left ventricular size with normal contractility, calculated ejection fraction 56%, gated images are unreliable due to underlying atrial fibrillation. Job ID: [id number] DocumentID: [id number] Dictated Date: 08/25/2017 15:22:45 Home Appliances Mechanic Date: 08/25/2017 17:54:53 Dictated By: ANSON POMPA MD
== END ==
LOC: CARD 11:14
PROVIDERS: ATTEND Physician Assistant
DX: I25.10 Atherosclerotic heart disease of native coronary artery without angina pectoris (principal); I65.23 Occlusion and stenosis of bilateral carotid arteries; I10 Essential (primary) hypertension; E78.2 Mixed hyperlipidemia; R07.89 Other chest pain
CPT/HCPCS: 78452; 93017

== ENCOUNTER 2017-10-23 15:37 | Emergency (ER) | payer MEDICARE, MEDICAID ==
[~2017-10-23] VITALS: Ht 172.7 cm; Wt 86.2 kg
[~2017-10-23 15:37] MED LIST changes: -CATHETER FLUSH 10 ML SYR IV PRN; -REGADENOSON 0.4 MG/5 ML SYR (LEXISCAN) IV ONE
--- OUTSIDE RECORDS SUMMARY | 2017-10-23 15:43 | XMS REPORT ---
Author Author MERCADOBOY Suarez Organization [facility] Address [address] [place] [address] Care Team Providers Care Flask Carrier Name Role Phone BOY MERCADO Unavailable PROBLEMS Type Condition ICD9-CM Code FVO66-SY Code Onset Dates Condition Status SNOMED Code Problem Hyperlipidemia E78.5 Active 72894271 Problem Slow transit constipation K59.01 Active 53108677 Problem Mild persistent asthma without complication J45.30 Active 308733220 Problem Carpal tunnel syndrome of left wrist G56.02 Active 991379635005647 Problem Sleeps in sitting position due to orthopnea R06.01 Active 968879441722053 Problem Fibromyalgia M79.7 Active 003084413 Problem Morbid (severe) obesity due to excess calories E66.01 Active 135850858 Problem Ventricular diastolic dysfunction determined by echocardiography I51.9 Active 971872196 Problem Body mass index (BMI) of 38.0-38.9 in adult Z68.38 Active 557317131 Problem Sleep apnea in adult G47.33 Active 91673571 Problem Hypertension I10 Active 11687376 Problem Hypothyroidism, unspecified E03.9 Active 60202658 Problem Morbid obesity E66.01 Active 707684661 Problem Allergic rhinitis J30.9 Active 64460611 Problem Atrial fibrillation I48.91 Active 04291574 ALLERGIES No Information ENCOUNTERS Encounter Location Date Diagnosis [facility] [address] [facility] [id number] [address] 12 Aug, 2017 Hypertension I10 ; Atrial fibrillation I48.91 ; Hyperlipidemia E78.5 ; Hypothyroidism, unspecified E03.9 ; Mild persistent asthma without complication J45.30 ; Sleep apnea in adult G47.33 ; Fibromyalgia M79.7 ; Ventricular diastolic dysfunction determined by echocardiography I51.9 ; Allergic rhinitis J30.9 ; Morbid (severe) obesity due to excess calories E66.01 and Body mass index (BMI) of 38.0-38.9 in adult Z68.38 [place] [id number] [place] [address] 23 Jul, 2017 Hypertension I10 ; Atrial fibrillation I48.91 ; Mild persistent asthma without complication J45.30 ; Morbid obesity E66.01 ; Hyperlipidemia E78.5 ; Allergic rhinitis J30.9 ; Sleep apnea in adult G47.33 ; Sleeps in sitting position due to orthopnea R06.01 and Carpal tunnel syndrome of left wrist G56.02 [place] [address] [address] 11 Jul, 2017 [place] [address] [address] 10 Jul, 2017 [place] [address] [address] 08 Jul, 2017 [place] [address] [address] 14 May, 2017 Hypothyroidism, unspecified E03.9 and Hypertension I10 [place] [id number] [place] [address] 13 May, 2017 Acute bilateral low back pain without sciatica M54.5 ; Dysuria R30.0 and Muscle spasm of back M62.830 [place] [id number] [place] [address] 06 May, 2017 Hypertension I10 [place] [id number] [place] [address] Apr, Hypertension I10 [place] [id number] [place] [address] Apr, Hypertension I10 ; Atrial fibrillation I48.91 ; Hyperlipidemia E78.5 and Allergic rhinitis J30.9 [place] [id number] [place] [address] Jan, Dysuria R30.0 and Acute cystitis without hematuria N30.00 [place] [address] [address] Jan, Hypothyroidism, unspecified E03.9 and Hypertension I10 [place] [address] [address] November, Encounter for well woman exam Z01.419 and Encounter for breast cancer screening other than mammogram Z12.39 [place] [address] [address] Sep, Hypertension I10 ; Atrial fibrillation I48.91 ; Hypothyroidism, unspecified E03.9 ; Morbid obesity E66.01 ; Hyperlipidemia E78.5 ; Mild persistent asthma without complication J45.30 ; Allergic rhinitis J30.9 ; Slow transit constipation K59.01 ; Other viral agents as the cause of diseases classified elsewhere B97.89 ; Acute upper respiratory infection, unspecified J06.9 and H/O fibromyalgia Z87.39 [place] [address] [address] Jul, [place] [address] [address] Jun, Routine lab draw Z00.00 ; Hypertension I10 ; Atrial fibrillation I48.91 ; Hypothyroidism, unspecified E03.9 and Morbid obesity E66.[address] [address] Jun, Hypertension I10 ; Atrial fibrillation I48.91 ; Hypothyroidism, unspecified E03.9 ; Morbid obesity E66.01 ; Hyperlipidemia E78.5 ; Mild persistent asthma without complication J45.30 ; Allergic rhinitis J30.9 and Slow transit constipation K59.01 [place] [address] [address] May, [facility] [address] [address] Apr, Bug bite, initial encounter W57.XXXA [address] [address] Mar, Chronic atrial fibrillation I48.2 [place] [address] [address] Dec, Hypertension I10 ; H/O fibromyalgia Z87.39 ; Atrial fibrillation I48.91 ; Hypothyroidism, unspecified E03.9 ; Morbid obesity E66.01 ; History of asthma Z87.09 ; Hyperlipidemia E78.5 and Shortness of breath R06.02 [place] [address] [address] November, [facility] [address] [address] Oct, Candidal dermatitis B37.2 [place] [address] [address] Oct, [address] [address] Sep, Mild persistent asthma without complication J45.30 ; Dysuria R30.0 ; Leukopenia D72.819 ; Hypertension I10 and Vaginal cayla B37.[address] [address] Jul, [place] [address] [address] Jun, [address] [address] Jun, [place] [address] [address] Jun, [address] [address] May, HTN (hypertension) I10 ; Hypertension I10 ; H/O fibromyalgia Z87.39 ; Atrial fibrillation I48.91 ; Hypothyroidism, unspecified E03.9 ; Morbid obesity E66.01 and Hyperlipidemia E78.5 [place] [address] [address] May, [place] [address] [place] [address] May, [place] [id number] [place] [address] 11 May, 2015 General medical exam Z00.00 ; Hypertension I10 ; H/O fibromyalgia Z87.39 ; Irregular heart beat I49.9 ; Dysuria R30.0 ; Dietary counseling Z71.3 ; Exercise counseling Z71.89 ; Sleep apnea in adult G47.33 ; Atrial fibrillation I48.91 ; Hypothyroidism, unspecified E03.9 and Morbid obesity E66.01 [place] [address] [place] [address] 10 May, 2015 General medical exam Z00.00 ; Hypertension I10 ; H/O fibromyalgia Z87.39 ; Dysuria R30.0 ; Dietary counseling Z71.3 ; Exercise counseling Z71.89 ; Sleep apnea in adult G47.33 ; Atrial fibrillation I48.91 ; Hypothyroidism, unspecified E03.9 ; Morbid obesity E66.01 ; Allergic rhinitis J30.9 and History of asthma Z87.09 [place] [address] [place] [address] November, [place] [address] [place] [address] November, IMMUNIZATIONS No Known Immunizations SOCIAL HISTORY Never Assessed REASON FOR VISIT Refill request PLAN OF CARE VITAL SIGNS MEDICATIONS Medication Instructions Dosage Frequency Start Date End Date Duration Status Levothyroxine Sodium 125 mcg Orally Once a day 1 tablet 24h 90 days Active Metoprolol Succinate ER 25 MG Orally Once a day 1 tablet 24h 90 days Active RESULTS No Results PROCEDURES No Known procedures INSTRUCTIONS MEDICATIONS ADMINISTERED No Known Medications MEDICAL (GENERAL) HISTORY Type Description Date Medical [...] is -0.9 and left side is -1 Medical History 2018- ECHO- EF 55-65%, cocentric hypertrophy, Grade 1 diastolic dysfunction, dilated left and right atrium, mld mitral regurg. mild tricuspid regurg., Surgical History tubal ligation Surgical History oral surgery Surgical History cataract-lens implants Surgical History hemorrhoidectomy Hospitalization History PID Hospitalization History Influenza-like illness; A-fib w/ RVR 09/24/2015 Hospitalization History CHF Exhaserbation 07/2017
--- OUTSIDE RECORDS SUMMARY | 2017-10-23 15:45 | XMS REPORT | Continuity of Care Document ---
Author Author [facility] Address Unknown Phone Unavailable Allergies Active Description Code Type Severity Reaction Onset Reported/Identified Relationship to Patient Clinical Status Yes aspirin [id number] Drug Allergy Mild N/A 01/04/2014 Yes codeine [id number] Drug Allergy Mild N/A 01/04/2014 Yes opium tincture [id number] Drug Allergy Mild N/A 01/04/2014 Yes Penicillins [id number] Drug Allergy Mild N/A 01/04/2014 Yes Dogkkui-Vce-Cuz Reductase Inhibitor [id number] Drug Allergy Mild N/A 2013 Yes tramadol [id number] Drug Allergy Mild N/A 01/04/2014 Medications There [...] MD Ot I25.10 ATHSCL HEART DISEASE OF [place] CORONARY 08/21/2015 ANSON POMPA MD Ot I48.0 PAROXYSMAL ATRIAL FIBRILLATION 08/21/2015 ANSON POMPA MD, Ot J44.9 CHRONIC OBSTRUCTIVE PULMONARY DISEASE, U 08/21/2015 ANSON POMPA MD Ot R94.39 ABNORMAL RESULT OF OTHER CARDIOVASCULAR 08/21/2015 ANSON POMPA MD Ot Z68.41 BODY MASS INDEX (BMI) 40.0-44.9, ADULT 08/21/2015 ANSON POMPA MD Ot Z79.01 BIOFUELS TECHNOLOGY DEVELOPMENT MANAGER (CURRENT) USE OF ANTICOAGULANT 08/21/2015 ANSON POMPA MD Ot Z79.899 OTHER CARE HOME (CURRENT) DRUG THERAPY 08/21/2015 ANSON POMPA MD, Ot Z87.891 PERSONAL HISTORY OF NICOTINE DEPENDENCE 08/21/2015 ANSON POMPA MD Ot 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 OXYGEN 09/04/2015 BOY MERCADO APRN Ot I48.91 09/04/2015 ANSON POMPA MD Ot E78.2 09/04/2015 ANSON POMAP MD Ot G47.33 09/04/2015 ANSON POMPA MD Ot I10 09/04/2015 ANSON POMPA MD Ot I48.0 09/04/2015 ANSON POMPA MD Ot R07.89 09/24/2015 Ot 244.9 09/24/2015 Ot 272.4 09/24/2015 Ot 401.9 09/24/2015 Ot 244.9 09/24/2015 Ot 272.4 09/24/2015 Ot 401.9 09/24/2015 Ot 244.9 09/24/2015 Ot 272.4 09/24/2015 Ot 401.9 09/24/2015 Ot 244.9 09/24/2015 BEL MONAE RENAL CASE MANAGER Ot 715.36 09/24/2015 WINSTON ERVIN, ZEB Clark [...] 401.9 09/24/2015 Ot 244.9 09/24/2015 BEL MONAE RENAL CASE MANAGER Ot 715.36 09/24/2015 WINSTON ERVIN, ZEB Clark [...] CARLOS MD Ot R50.9 09/26/2015 TERRANCE ERVIN, TNAG Trent Ot Z68.41 09/26/2015 TERRANCE ERVIN, TANG [...] TERRANCE ERVIN, TANG Trent Ot G47.33 09/28/2015 TAGN CARLOS MD Ot H92.09 09/28/2015 TANG CALROS MD Ot I10 09/28/2015 TANG CARLOS MD [...] MD Ot I25.10 ATHSCL HEART DISEASE OF [place] CORONARY 09/30/2015 TANG CARLOS MD, Ot I48.0 [...] ADULT 09/30/2015 TANG CARLOS MD, Ot Z79.01 BIOFUELS TECHNOLOGY DEVELOPMENT MANAGER (CURRENT) USE OF ANTICOAGULANT 09/30/2015 TANG CARLOS [...] MD Ot I25.10 ATHSCL HEART DISEASE OF [place] CORONARY 10/17/2015 ANSON POMPA MD Ot I48.91 [...] NOS 12/09/2016 Ot 244.9 HYPOTHYROIDISM NOS 12/09/2016 EBL MONAE Ot 715.36 LOC OSTEOARTH NOS-L/LEG 12/09/2016 WINSTON ERVIN, ZEB Clark Ot V76.12 OTH SCREEN MAMMO-MALIGN NEOPLASM OF [place] 12/09/2016 BOY MERCADO EQUIPMENT OR MACHINERY CLEANER Ot I48.91 UNSPECIFIED ATRIAL FIBRILLATION 12/09/2016 ANSON POMPA MD Ot E78.2 MIXED HYPERLIPIDEMIA 12/09/2016 ANSON POMPA MD, Ot G47.33 OBSTRUCTIVE SLEEP APNEA (ADULT) (PEDIATR 12/09/2016 ANSON POMPA MD Ot I10 ESSENTIAL (PRIMARY) HYPERTENSION 12/09/2016 ANSON POMPA MD Ot I48.0 PAROXYSMAL ATRIAL FIBRILLATION 12/09/2016 ANSON POMPA MD Ot R07.89 OTHER CHEST PAIN 12/09/2016 BOY MERCADO EQUIPMENT OR MACHINERY CLEANER Ot Z78.0 ASYMPTOMATIC MENOPAUSAL STATE 12/09/2016 BOY MERCADO EQUIPMENT OR MACHINERY CLEANER Ot Z78.0 ASYMPTOMATIC MENOPAUSAL STATE 12/10/2016 BOY MERCADO EQUIPMENT OR MACHINERY CLEANER Ot Z78.0 ASYMPTOMATIC MENOPAUSAL STATE 12/23/2016 Ot 244.9 HYPOTHYROIDISM NOS 12/23/2016 Ot 272.4 HYPERLIPIDEMIA NEC/NOS 12/23/2016 Ot 401.9 HYPERTENSION NOS 12/23/2016 Ot 244.9 HYPOTHYROIDISM NOS 12/23/2016 Ot 272.4 HYPERLIPIDEMIA NEC/NOS 12/23/2016 Ot 401.9 HYPERTENSION NOS 12/23/2016 Ot 244.9 HYPOTHYROIDISM NOS 12/23/2016 BEL MONAE RENAL CASE MANAGER Ot 715.36 LOC OSTEOARTH NOS-L/LEG 12/23/2016 WINSTON ERVIN, ZEB Clark Ot V76.12 OTH SCREEN MAMMO-MALIGN NEOPLASM OF [place] 12/23/2016 MERCADO BOY Graham EQUIPMENT OR MACHINERY CLEANER Ot I48.91 UNSPECIFIED ATRIAL FIBRILLATION 12/23/2016 ANSON [...] APRN Ot I25.10 ATHSCL HEART DISEASE OF [place] CORONARY 12/23/2016 EV DARBY APRN Ot M54.5 [...] NOS 12/23/2016 Ot 244.9 HYPOTHYROIDISM NOS 12/23/2016 MONAEBEL Ot 715.36 LOC OSTEOARTH NOS-L/LEG 12/23/2016 WINSTON [...] R07.89 OTHER CHEST PAIN 12/25/2016 BOY MERCADO EQUIPMENT OR MACHINERY CLEANER Ot M85.88 OTH DISRD OF BONE DENSITY AND STRUCTURE, 12/25/2016 BOY MERCADO EQUIPMENT OR MACHINERY CLEANER Ot Z78.0 ASYMPTOMATIC MENOPAUSAL STATE 01/14/2017 BOY MERCADO EQUIPMENT OR MACHINERY CLEANER Ot M85.88 OTH DISRD OF BONE DENSITY AND STRUCTURE, 01/14/2017 BOY MERCADO EQUIPMENT OR MACHINERY CLEANER Ot Z78.0 ASYMPTOMATIC MENOPAUSAL STATE 01/20/2017 BOY MERCADO EQUIPMENT OR MACHINERY CLEANER Ot M85.88 OTH DISRD OF BONE DENSITY AND STRUCTURE, 01/20/2017 BOY MERCADO EQUIPMENT OR MACHINERY CLEANER Ot Z78.0 ASYMPTOMATIC MENOPAUSAL STATE 07/28/2017 BOY MERCADO EQUIPMENT OR MACHINERY CLEANER Ot M85.88 OTH DISRD OF BONE DENSITY AND STRUCTURE, 07/28/2017 BOY MERCADO EQUIPMENT OR MACHINERY CLEANER Ot Z78.0 ASYMPTOMATIC MENOPAUSAL STATE 07/29/2017 TERRANCE ERVIN, TANG Trent Ot E03.9 HYPOTHYROIDISM, UNSPECIFIED 07/29/2017 TANG CARLOS MD Ot E66.01 MORBID (SEVERE) OBESITY DUE TO EXCESS CA 07/29/2017 TANG CARLOS MD Ot E78.00 PURE HYPERCHOLESTEROLEMIA, UNSPECIFIED 07/29/2017 TERRANCE MD, TANG A Ot E78.5 HYPERLIPIDEMIA, UNSPECIFIED 07/29/2017 TANG CARLOS MD Ot F41.9 ANXIETY DISORDER, UNSPECIFIED 07/29/2017 TANG CARLOS MD, Ot G47.33 OBSTRUCTIVE SLEEP APNEA (ADULT) (PEDIATR 07/29/2017 TANG CARLOS MD, Ot I10 ESSENTIAL (PRIMARY) HYPERTENSION 07/29/2017 TANG CARLOS MD Ot I25.10 ATHSCL HEART DISEASE OF [place] CORONARY 07/29/2017 TANG CARLOS MD Ot I48.2 CHRONIC ATRIAL FIBRILLATION 07/29/2017 TANG CARLOS MD, Ot 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 07/29/2017 TANG CARLOS MD, Ot J44.9 CHRONIC OBSTRUCTIVE PULMONARY DISEASE, U 07/29/2017 TANG CARLOS MD, Ot K21.9 GASTRO-ESOPHAGEAL REFLUX DISEASE WITHOUT 07/29/2017 TANG CARLOS MD, Ot K59.09 OTHER CONSTIPATION 07/29/2017 TANG CARLOS MD Ot M79.7 FIBROMYALGIA 07/29/2017 TANG CARLOS MD, Ot R73.03 PREDIABETES 07/29/2017 TANG CARLOS MD Ot Z68.38 BODY MASS INDEX (BMI) 38.0-38.9, ADULT 07/29/2017 TANG CARLOS MD, Ot Z87.891 PERSONAL HISTORY OF NICOTINE DEPENDENCE 07/29/2017 TANG CARLOS MD, Ot Z88.0 ALLERGY STATUS TO PENICILLIN 07/29/2017 TANG CARLOS MD, Ot Z88.5 ALLERGY STATUS TO NARCOTIC AGENT STATUS 07/29/2017 Ot 244.9 HYPOTHYROIDISM NOS 07/29/2017 BEL MONAE Ot 715.36 LOC OSTEOARTH NOS-L/LEG 07/29/2017 ZEB MONTERO MD Ot V76.12 OTH SCREEN MAMMO-MALIGN NEOPLASM OF [place] 07/29/2017 BOY MERCADO APRN Ot I48.91 UNSPECIFIED ATRIAL FIBRILLATION 07/29/2017 ANSON POMPA MD Ot E78.2 MIXED HYPERLIPIDEMIA 07/29/2017 ANSON POMPA MD Ot G47.33 OBSTRUCTIVE SLEEP APNEA (ADULT) (PEDIATR 07/29/2017 ANSON POMPA MD Ot I10 ESSENTIAL (PRIMARY) HYPERTENSION 07/29/2017 PEÑA ERVIN, ANSON Aparicio Ot I48.0 PAROXYSMAL ATRIAL FIBRILLATION 07/29/2017 PEÑA ERVIN, ANSON Aparicio Ot R07.89 OTHER CHEST PAIN 07/29/2017 BOY MERCADO EQUIPMENT OR MACHINERY CLEANER Ot M85.88 OT DISRD OF BONE DENSITY AND STRUCTURE, 07/29/2017 BOY MERCADO EQUIPMENT OR MACHINERY CLEANER Ot Z78.0 ASYMPTOMATIC MENOPAUSAL STATE 08/26/2017 PERI MABRY Ot E78.2 MIXED HYPERLIPIDEMIA 08/26/2017 OTIS PONCE, PERI K Ot I10 ESSENTIAL (PRIMARY) HYPERTENSION 08/26/2017 OTIS PONCE PERI K Ot I25.10 ATHSCL HEART DISEASE OF [place] CORONARY 08/26/2017 PERI MABRY Ot 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 08/26/2017 PERI MABRY Ot R07.89 OTHER CHEST PAIN 08/31/2017 PERI MABRY Ot E78.2 MIXED HYPERLIPIDEMIA 08/31/2017 OTIS PONCE, PERI K Ot I10 ESSENTIAL (PRIMARY) HYPERTENSION 08/31/2017 OTIS PONCE PERI K Ot I25.10 ATHSCL HEART DISEASE OF [place] CORONARY 08/31/2017 OTIS PONCE PERI K Ot 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 08/31/2017 OTIS PONCE PERI K Ot R07.89 OTHER CHEST PAIN 09/15/2017 OTIS PONCE PERI K Ot E78.2 MIXED HYPERLIPIDEMIA 09/15/2017 OTIS PONCE PERI K Ot I10 ESSENTIAL (PRIMARY) HYPERTENSION 09/15/2017 OTIS PONCE PERI K Ot I25.10 ATHSCL HEART DISEASE OF [place] CORONARY 09/15/2017 OTIS PONCE PERI K Ot 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 09/15/2017 OTIS PONCE PERI K Ot R07.89 OTHER CHEST PAIN 09/21/2017 PERI MABRY Ot E78.2 MIXED HYPERLIPIDEMIA 09/21/2017 PERI MABRY K Ot I10 ESSENTIAL (PRIMARY) HYPERTENSION 09/21/2017 PERI MABRY Ot I25.10 ATHSCL HEART DISEASE OF [place] CORONARY 09/21/2017 PERI MABRY Ot 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 09/21/2017 PERI MABRY Ot R07.89 OTHER CHEST PAIN Procedures There is no data. Results Test Result Range CBC With Differential/Platelet - 06/29/16 13:25 WBC 3.5 x10E3/uL 3.4-10.8 RBC 4.76 x10E6/uL 3.77-5.28 Hemoglobin 11.9 g/dL 11.1-15.9 Hematocrit 38.4 % 34.0-46.6 MCV 81 fL 79-97 MCH 25.0 pg 26.6-33.0 MCHC 31.0 g/dL 31.5-35.7 RDW 14.4 % 12.3-15.4 Platelets 207 x10E3/uL 150-379 Neutrophils 53 % Lymphs 34 % Monocytes 7 % Eos 5 % Basos 1 % Neutrophils (Absolute) 1.9 x10E3/uL 1.4-7.0 Lymphs (Absolute) 1.2 x10E3/uL 0.7-3.1 Monocytes(Absolute) 0.3 x10E3/uL 0.1-0.9 Eos (Absolute) 0.2 x10E3/uL 0.0-0.4 Baso (Absolute) 0.0 x10E3/uL 0.0-0.2 Immature Granulocytes 0 % Immature Grans (Abs) 0.0 x10E3/uL 0.0-0.1 Comp. Metabolic Panel (14) - 06/29/16 13:25 Glucose, Serum 93 mg/dL 65-99 BUN 13 mg/dL 8-27 Creatinine, Serum 0.97 mg/dL 0.57-1.00 eGFR If NonAfricn Am 60 mL/min/1.73 >59 eGFR If Africn Am 69 mL/min/1.73 >59 BUN/Creatinine Ratio 13 11-26 Sodium, Serum 143 mmol/L 134-144 Potassium, Serum 4.2 mmol/L 3.5-5.2 Chloride, Serum 102 mmol/L 96-106 Carbon Dioxide, Total 28 mmol/L 18-29 Calcium, Serum 9.0 mg/dL 8.7-10.3 Protein, Total, Serum 6.5 g/dL 6.0-8.5 Albumin, Serum 3.9 g/dL 3.6-4.8 Globulin, Total 2.6 g/dL 1.5-4.5 A/G Ratio 1.5 1.1-2.5 Bilirubin, Total 0.9 mg/dL 0.0-1.2 Alkaline Phosphatase, S 70 IU/L 39-117 AST (SGOT) 16 IU/L 0-40 ALT (SGPT) 14 IU/L 0-32 Lipid Panel - 06/29/16 13:25 Cholesterol, Total 157 mg/dL 100-199 Triglycerides 111 mg/dL 0-149 HDL Cholesterol 64 mg/dL >39 VLDL Cholesterol Pasha 22 mg/dL 5-40 LDL Cholesterol Calc 71 mg/dL 0-99 Hemoglobin A1c - 06/29/16 13:25 Hemoglobin A1c 5.6 % 4.8-5.6 Thyroid [place] Profile - 06/29/16 13:25 TSH 4.150 uIU/mL 0.450-4.500 Magnesium, Serum - 06/29/16 13:25 Magnesium, Serum 2.0 mg/dL 1.6-2.3 Complete blood count (CBC) with automated white [...] 12/23/16 20:01 URINE CULTURE RESULTS <10,000/ML NRG Urine Culture, Routine - 02/01/17 13:15 Urine Culture, Routine Note Complete blood count (CBC) with automated white [...] measurement by glucometer (mass/volume) 157 mg/dL 70-110 THYROID ANALYZER - 08/30/17 12:46 TSH 1.14 mIU/L 0.40-4.50 Encounters ACCT No. Visit Date/Time Discharge Status Pt. Type Provider Facility Loc./Unit Complaint [id number] 08/25/2017 11:14:00 08/25/2017 23:59:59 CLS Outpatient PERI MABRY [facility] CARD I25.10 CAD [id number] 07/28/2017 19:15:00 07/29/2017 14:05:00 DIS Inpatient TANG CARLOS MD [facility] ICU CHEST PAIN,CHF,CHRONIC AFIB,HTN [id number] 12/24/2016 10:07:00 12/24/2016 23:59:59 CLS Outpatient BOY MERCADO APRN [facility] RAD Z78.0 [id number] 12/23/2016 18:21:00 12/23/2016 20:58:00 DIS Emergency EV DARBY APRN [facility] ER RT SIDED RIB/BACK/KNEE PAIN [id number] 09/24/2015 13:52:00 09/30/2015 13:32:00 DIS Inpatient TANG CARLOS MD [facility] 4TH INFLUENZA LIKE ILLNESS A- FIB W/RVR [id number] 08/21/2015 07:29:00 08/21/2015 15:05:00 DIS Outpatient ANSON POMPA MD [facility] CATH ABNORMAL STRESS,HLP, OBESITY [id number] 07/10/2015 07:53:00 07/10/2015 23:59:59 CLS Outpatient ANSON POMPA MD [facility] CARD AF,CHEST PAIN SYNDROME, HTN,HYPERLIPIDEMIA,JANELLE [id number] 06/21/2015 14:13:00 06/21/2015 23:59:59 CLS Outpatient BOY MERCADO EQUIPMENT OR MACHINERY CLEANER [facility] CARD AFIB [id number] 03/28/2014 07:20:00 03/28/2014 23:59:59 CLS Outpatient ZEB MONTERO MD [facility] RAD SCREENING [id number] 02/19/2014 18:07:00 02/19/2014 23:59:59 CLS Outpatient BEL MONAE RENAL CASE MANAGER [facility] RAD OA [id number] 01/04/2014 23:31:00 01/05/2014 00:56:00 DIS Emergency YARITZA LÓPEZ DO [facility] ER RT KNEE PAIN [id number] 10/23/2017 15:38:00 ACT Emergency [place] JONES MD [facility] ER FALL [id number] 10/17/2015 00:07:00 ACT Inpatient ANSON POMPA MD [facility] ICU CHEST PAIN;CHRONIC A-FIB [id number] 06/21/2015 14:07:00 Document Registration [id number] 06/21/2015 14:07:00 Document Registration [id number] 04/15/2012 08:52:00 Document Registration [id number] 12/10/2011 09:16:00 Document Registration [id number] 11/06/2011 10:24:00 Document Registration [id number] 10/21/2011 21:36:00 Document Registration [id number] 06/03/2011 18:16:00 Document Registration [id number] 03/25/2010 09:39:00 Document Registration [id number] 01/23/2010 12:53:00 Document Registration [id number] 06/30/2016 13:06:00 Document Registration [id number] 08/30/2017 11:20:00 08/30/2017 23:59:59 [facility] BOY MERCADO [facility] [id number] 08/30/2017 11:20:00 Document Registration [id number] 02/03/2017 04:07:00 Document Registration
[2017-10-23] MEDS ORDERED: TETANUS,DIPTH,PERTUSS P/F (BOOSTRIX) 0.5 ML VIAL IM ONE (16:00)
[2017-10-23 16:01] LABS: BASOPHILS % (AUTO) 0 % (0-10); EOSINOPHILS # (AUTO) 0.2 10^3/uL (0.0-0.3); EOSINOPHILS % (AUTO) 4 % (0-10); HEMATOCRIT 37 % (35-52); HEMOGLOBIN 11.8 G/DL (11.5-16.0); LYMPHOCYTES # (AUTO) 1.1 X 10^3 (1.0-4.0); LYMPHOCYTES % (AUTO) 26 % (12-44); MEAN CORPUSCULAR HEMOGLOBIN 26 PG (25-34); MEAN CORPUSCULAR HGB CONC 32 G/DL (32-36); MEAN CORPUSCULAR VOLUME 81 FL (80-99); MEAN PLATELET VOLUME 9.5 FL (7.4-10.4); MONOCYTES # (AUTO) 0.4 X 10^3 (0.0-1.0); MONOCYTES % (AUTO) 9 % (0-12); NEUTROPHILS # (AUTO) 2.6 X 10^3 (1.8-7.8); NEUTROPHILS % (AUTO) 61 % (42-75); PLATELET COUNT 207 10^3/uL (130-400); RED BLOOD COUNT 4.56 10^6/uL (4.35-5.85); RED CELL DISTRIBUTION WIDTH 14.4 % (10.0-14.5); WHITE BLOOD COUNT 4.3 10^3/uL (4.3-11.0)
[2017-10-23 16:08] LABS: INR 1.2 (0.8-1.4); PROTHROMBIN TIME PATIENT 15.6 SEC (12.2-14.7)
[2017-10-23 16:14] LABS: BILIRUBIN,TOTAL 0.8 MG/DL (0.1-1.0); CALCIUM 9.3 MG/DL (8.5-10.1); CREATININE SERUM 0.99 MG/DL (0.60-1.30); POTASSIUM 4.1 MMOL/L (3.6-5.0); TOTAL PROTEIN 6.7 GM/DL (6.4-8.2)
--- NOTE | 2017-10-23 16:59 | Diagnostic Imaging Report ---
PROCEDURE: CT head and CT cervical spine without contrast. TECHNIQUE: Multiple contiguous axial images were obtained through the brain and cervical spine without the use of intravenous contrast. Sagittal and coronal reformations through the cervical spine were then performed. INDICATION: Fall. Bruising above left eye. FINDINGS: There is a large subcutaneous hematoma overlying the left orbital roof and frontal bone without CT evidence of underlying calvarial or orbital fracture. There is no evidence of intracranial hemorrhage or of an abnormal extra-axial fluid collection. No mass effect or shift. There is no hydrocephalus. There are some chronic microvascular changes within the white matter but no territorial loss of vivar-white differentiation to suggest acute ischemia. The basilar cisterns patent. Posterior fossa unremarkable. The mastoid air cells are clear. There is no air-fluid level within the paranasal sinuses. Cervical spine demonstrates multilevel cervical degenerative disc disease and facet arthropathy. Alignment appears normal. There is normal alignment of the craniocervical junction and a normal relationship of lateral masses of C1 and C2. The facets appear normally aligned. There is no facet joint or disc space widening. Vertebral body heights maintained without evidence of acute cervical spine fracture. By CT imaging, there appears to be moderate canal stenosis at C5-6 and mild to moderate central canal stenosis at C3-4 and C4-5. Multiple levels of foraminal stenosis due to facet arthropathy and uncovertebral spurring. Lung apices appear clear. Thyroid mildly prominent. No acute soft tissue abnormality within the neck. IMPRESSION: 1. Large left supraorbital and frontal subcutaneous hematoma without evidence of underlying calvarial or orbital fracture. 2. Chronic microvascular changes within the white matter. There is no CT evidence of intracranial hemorrhage or of an acute intracranial abnormality. 3. Multilevel cervical degenerative disc disease and facet arthropathy without CT evidence of acute cervical spine fracture or traumatic malalignment. Dictated by: Dictated on workstation # [id number]
--- NOTE | 2017-10-23 17:12 | Diagnostic Imaging Report ---
INDICATION: Injury, wrist pain. EXAMINATION: Right wrist at 5:04 p.m. Three views were obtained. FINDINGS: On the oblique view, there does appear to be a linear fracture extending longitudinally through the medial third of the articular surface of the distal radius. This finding is not as well appreciated on the other views but I do suspect that there is a fracture in this region. If further imaging is desired, then CT would be recommended. No other fracture or acute bony abnormality is appreciated. There is moderately severe degenerative disease involving the radiocarpal joint and there is ulnar plus variance. The lateral view does show considerable soft tissue edema along the dorsum of the wrist. IMPRESSION: 1. The findings would be consistent with a nondisplaced fracture extending longitudinally through the lateral third of the articular surface of the distal radius. If further evaluation of the extent of the injury to the radius is desired, then CT would be recommended. 2. There is no acute bony abnormality noted otherwise. Dictated by: Dictated on workstation # [id number]
[2017-10-23] MEDS ORDERED: fentaNYL INJECTION 100 MCG/2 ML AMP IVP ONE (17:15)
--- NOTE | 2017-10-23 17:16 | Diagnostic Imaging Report ---
INDICATION: Pelvic and wrist injury. EXAMINATION: Supine AP chest at 5:01 p.m. FINDINGS: The cardiomegaly noted on the prior exam of 07/29/2017 is again evident and no different. The lungs are clear. There is no sign of failure, pneumonia or a pleural effusion. The mediastinum is not widened. The osseous structures are intact. IMPRESSION: There is no evidence for an acute cardiopulmonary abnormality. Dictated by: Dictated on workstation # [id number]
--- NOTE | 2017-10-23 17:17 | Diagnostic Imaging Report ---
TIME: Pelvis at 4:58 p.m. INDICATION: Fell, pelvic pain. Two AP views were obtained. FINDINGS: There is no fracture, dislocation or acute bony abnormality evident. There is a linear lucency along the junction of the superior pubic ramus and inferior pubic symphysis on the right. This finding was also present on the prior abdomen exam of 09/30/2010 and consequently is unlikely to be related to a fracture. There is at least moderate degenerative disease of the hip and sacroiliac joints. These findings have not progressed since the prior exam. The soft tissues are unremarkable. IMPRESSION: 1. There is no evidence for an acute bony abnormality. 2. If clinical concern regarding an occult fracture persists and further imaging is desired, then CT would be recommended. Dictated by: Dictated on workstation # [id number]
[2017-10-23] MEDS ORDERED: ONDANSETRON 4 MG/2 ML (SDV) Z0FRAN IVP ONE (17:30)
[2017-10-23] MEDS ORDERED: HYDROcodone/APAP 5 MG/325 MG (LORTAB) TAB PO ONE (18:15)
--- NOTE | 2017-10-23 18:20 | ED Fall/Injury ---
General Chief Complaint: Trauma-Non Activation Stated Complaint: FALL Source: patient Exam Limitations: no limitations History of Present Illness Date Seen by Provider: Oct 23, 2017 Time Seen by Provider: 15:38 Initial Comments This 71-year-old woman presents to the emergency room via EMS after having a fall on concrete and injuring her head and right wrist. She reports tripping over a box. She has a hematoma to the left forehead along with abrasion. She also has deformity and pain to the right wrist. EMS has applied a splint. Patient takes Eliquis for atrial fibrillation. There was possible very brief loss of consciousness. Vision of the left eye is affected due to the hematoma. Occurred: just prior to arrival Allergies and Home Medications Allergies Coded Allergies: Penicillins (Verified Allergy, Mild, 01/04/14) Dhkvwcf-Fzu-Xfw Reductase Inhibitor (Verified Allergy, Mild, 01/04/14) codeine (Verified Allergy, Mild, 01/04/14) opium tincture (Verified Allergy, Mild, 01/04/14) tramadol (Verified Allergy, Mild, 01/04/14) Home Medications Albuterol Sulfate 8.5 Gm Hfa.aer.ad, 2 PUFF INH Q4H PRN for SHORTNESS OF BREATH, (Reported) Apixaban 5 Mg Tablet, 5 MG PO BID, (Reported) Aspirin 81 Mg Tab.chew, 81 MG PO DAILY Prescribed by: TANG GOMEZ on 07/29/17 1158 Atorvastatin Calcium 10 Mg Tablet, 10 MG PO DAILY, (Reported) Cetirizine HCl 10 Mg Tablet, 10 MG PO HS, (Reported) Fluticasone Propionate 16 Gm [place].susp, 2 SPRAYS NSEACH HS, (Reported) Hydrochlorothiazide 25 Mg Tablet, 25 MG PO DAILY, (Reported) LAST FILLED #30 10-30-17 Hydrocodone/Acetaminophen 1 Each Tablet, 1-2 EACH PO Q4H Prescribed by: NY BULL on 10/23/17 1821 Levothyroxine Sodium 125 Mcg Tablet, 125 MCG PO DAILY, (Reported) Lisinopril 20 Mg Tablet, 20 MG PO DAILY Prescribed by: ALEXIA REYES on 07/29/17 1343 Metoprolol Succinate 25 Mg Tab.er.24h, 25 MG PO DAILY, (Reported) Ondansetron 4 Mg Tab.rapdis, 4 MG SL Q4H PRN for NAUSEA/VOMITING-1ST LINE Prescribed by: NY BULL on 10/23/17 1821 Sennosides/Docusate Sodium 1 Each Tablet, 1 TAB PO BID, (Reported) Tizanidine HCl 4 Mg Tablet, 4 MG PO TID PRN for MUSCLE SPASMS, (Reported) Patient Home Medication List Home Medication List Reviewed: Yes Review of Systems Constitutional: no symptoms reported Eyes: See HPI Ears, Nose, Mouth, Throat: see HPI Respiratory: no symptoms reported Cardiovascular: see HPI Gastrointestinal: nausea Genitourinary: no symptoms reported : No Musculoskeletal: see HPI Skin: see HPI Psychiatric/Neurological: See HPI Past Ijfimvz-Losftz-Jzjaxv Hx Patient Social History Alcohol Use: Denies Use Number of Drinks Today: DD Alcohol Beverage of Choice: Rum Recreational Drug Use: No Type Used: Cigarettes Recent Hopitalizations: No Physical Abuse: No Sexual Abuse: No Immunizations Up To Date Tetanus Booster (TDap): Unknown Date of Pneumonia Vaccine: Jul 18, 2015 Date of Influenza Vaccine: Jul 18, 2015 Seasonal Allergies Seasonal Allergies: Yes Past Medical History Surgeries: Yes (DENTAL, HEMORRHOIDECTOMY, CARDIAC CATH X 2 ; CATARACTS) Cardiac, Eye Surgery, Rectal, Tubal Ligation Respiratory: Yes (PNEUMONIA A CHILD; ) Asthma, Pneumonia, Sleep Apnea Currently Using CPAP: No (PATIENT WEARS 02 AT NIGHT (3L/NC) ) Currently Using BIPAP: No Cardiac: Yes (CLEAN CATH 09/03, congestive heart failure) Atrial Fibrillation, Coronary Artery Disease, High Cholesterol, Hypertension Neurological: Yes Neuropathy : No 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 Disorders: No 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 Disorders: Denies PILLAR MAN History: Menopausal Sexually Transmitted Disease: No HIV/AIDS: No Genitourinary: Yes (INCONTINENCE) Bladder Infection, UTI-Chronic Gastrointestinal: Yes Gastroesophageal Reflux, Chronic Constipation, Hemorrhoids, Irritable Bowel Musculoskeletal: Yes Osteoporosis, Arthritis, Fibromyalgia, Chronic Back Pain Endocrine: Yes (HYPOGLYCEMIA; OBESITY) Hypothyroidsim HEENT: Yes (WEARS GLASSES) Cataract Hearing Impairment: Hard of Hearing Cancer: No Psychosocial: Yes Anxiety Nursing Suicide Risk Score: 0 Integumentary: No Blood Disorders: No Family Medical History Dementia 19 FATHER Drug abuse G8 BROTHER G8 SISTER FH: pancreatic cancer 19 MOTHER ( OF PANCREATIC CA AGE 67) Thyroid disease 19 MOTHER Physical Exam Vital Signs Vital Signs - First Documented Capillary Refill : General Appearance: WD/WN, mild distress HEENT: PERRL/EOMI, pharynx normal, other (Large hematoma to the left forehead and brow with overlying abrasion) Neck: non-tender, supple, normal inspection Cardiovascular: no edema, no murmur, irregularly irregular Respiratory: lungs clear, normal breath sounds, no respiratory distress, no accessory muscle use Gastrointestinal: normal bowel sounds, non tender, soft Back: normal inspection Extremities: no pedal edema, other (Swelling, deformity, and tenderness to the right wrist. Normal capillary refill, sensation, and movement in the fingers) Neurologic/Psychiatric: hand i tube bender II-XII nml as tested, no motor/sensory deficits, alert, normal mood/affect, oriented x 3 Skin: normal color, warm/dry, other (Abrasion over the left forehead and brow) [place] Coma Score Best Eye Response: (4) Open Spontaneously Best Verbal Response: (5) Oriented Best Motor Response: (6) Obeys Commands Benson Total: 15 Procedures/Interventions Splinting and Joint Reduction : Pre-Proc Neuro Vasc Exam: normal Post-Proc Neuro Vasc Exam: normal Progress No fracture reduction was necessary. A sugar tong splint was applied to the right forearm by this provider. Arm was placed in a sling. Splint Application: Short Arm Progress/Results/Core Measures Lab Results Laboratory Tests Test 10/23/17 15:47 Range/Units White Blood Count 4.3 4.3-11.0 10^3/uL Red Blood Count 4.56 4.35-5.85 10^6/uL Hemoglobin 11.8 11.5-16.0 G/DL Hematocrit 37 35-52 % Mean Corpuscular Volume 81 80-99 FL Mean Corpuscular Hemoglobin 26 25-34 PG Mean Corpuscular Hemoglobin Concent 32 32-36 G/DL Red Cell Distribution Width 14.4 10.0-14.5 % Platelet Count 207 130-400 10^3/uL Mean Platelet Volume 9.5 7.4-10.4 FL Neutrophils (%) (Auto) 61 42-75 % Lymphocytes (%) (Auto) 26 12-44 % Monocytes (%) (Auto) 9 0-12 % Eosinophils (%) (Auto) 4 0-10 % Basophils (%) (Auto) 0 0-10 % Neutrophils # (Auto) 2.6 1.8-7.8 X 10^3 Lymphocytes # (Auto) 1.1 1.0-4.0 X 10^3 Monocytes # (Auto) 0.4 0.0-1.0 X 10^3 Eosinophils # (Auto) 0.2 0.0-0.3 10^3/uL Basophils # (Auto) 0.0 0.0-0.1 10^3/uL Prothrombin Time 15.6 H 12.2-14.7 SEC INR Comment 1.2 0.8-1.4 Activated Partial Thromboplast Time 33 24-35 SEC Sodium Level 140 135-145 MMOL/L Potassium Level 4.1 3.6-5.0 MMOL/L Chloride Level 107 98-107 MMOL/L Carbon Dioxide Level 23 21-32 MMOL/L Anion Gap 10 5-14 MMOL/L Blood Urea Nitrogen 22 H 7-18 MG/DL Creatinine 0.99 0.60-1.30 MG/DL Estimat Glomerular Filtration Rate 56 BUN/Creatinine Ratio 22 Glucose Level 110 H 70-105 MG/DL Calcium Level 9.3 8.5-10.1 MG/DL Total Bilirubin 0.8 0.1-1.0 MG/DL Aspartate Amino Transf (AST/SGOT) 17 5-34 U/L Alanine Aminotransferase (ALT/SGPT) 13 0-55 U/L Alkaline Phosphatase 74 40-136 U/L Total Protein 6.7 6.4-8.2 GM/DL Albumin 4.0 3.2-4.5 GM/DL My Orders Orders - NY JONES MD Cbc With Automated Diff (10/23/17 15:50) Comprehensive Metabolic Panel (10/23/17 15:50) Protime With Inr (10/23/17 15:50) Partial Thromboplastin Time (10/23/17 15:50) Saline Lock/Iv-Start (10/23/17 15:50) Chest 1 View, Ap/Pa Only (10/23/17 15:50) Wrist, Right, 3 Views Or More (10/23/17 15:50) Pelvis (10/23/17 15:50) Ct Head/Cervical Spine Wo (10/23/17 15:50) Dipht,Pertuss(Acell),Tet Adult (Boostrix (10/23/17 16:00) Fentanyl Injection (Sublimaze Injection (10/23/17 17:15) Ondansetron Injection (Zofran Injectio (10/23/17 17:30) Hydrocodone/Apap 5/325 Tablet (Lortab 5 (10/23/17 18:15) Medications Given in ED Vital Signs/I&O 10/23/17 10/23/17 10/23/17 15:43 15:43 18:32 Temp 97.6 97.6 Pulse 86 86 86 Resp 16 16 14 B/P (MAP) 196/101 (132) 196/101 (132) 176/101 Pulse Ox 98 98 98 O2 Delivery Room Air Room Air Room Air Progress Note : Progress Note Patient's pain was treated with fentanyl and hydrocodone. Nausea was treated with Zofran. Fracture was found at the distal radius. A sugar tong splint was applied. Case was reviewed with Dr. Driscoll who would like to see her on Wednesday in the clinic. Antibiotic ointment and a pressure dressing were applied to the scalp hematoma. A tetanus booster was administered. Concussion treatment and precautions were discussed. Diagonstic Imaging: CT Plain Films/CT/US/NM/MRI: c-spine, head Comments CT head and C-spine report reviewed. See report below: NAME: YOMAIRA TENA [facility] REC#: [id number] PT STATUS: REG ER : 1945 PHYSICIAN: NY JONES MD ADMIT DATE: 10/23/17/ER Signed Date of Exam: 10/23/17 CT HEAD/CERVICAL SPINE WO PROCEDURE: CT head and CT cervical spine without contrast. TECHNIQUE: Multiple contiguous axial images were obtained through the brain and cervical spine without the use of intravenous contrast. Sagittal and coronal reformations through the cervical spine were then performed. INDICATION: Fall. Bruising above left eye. FINDINGS: There is a large subcutaneous hematoma overlying the left orbital roof and frontal bone without CT evidence of underlying calvarial or orbital fracture. There is no evidence of intracranial hemorrhage or of an abnormal extra-axial fluid collection. No mass effect or shift. There is no hydrocephalus. There are some chronic microvascular changes within the white matter but no territorial loss of vivar-white differentiation to suggest acute ischemia. The basilar cisterns patent. Posterior fossa unremarkable. The mastoid air cells are clear. There is no air-fluid level within the paranasal sinuses. Cervical spine demonstrates multilevel cervical degenerative disc disease and facet arthropathy. Alignment appears normal. There is normal alignment of the craniocervical junction and a normal relationship of lateral masses of C1 and C2. The facets appear normally aligned. There is no facet joint or disc space widening. Vertebral body heights maintained without evidence of acute cervical spine fracture. By CT imaging, there appears to be moderate canal stenosis at C5-6 and mild to moderate central canal stenosis at C3-4 and C4-5. Multiple levels of foraminal stenosis due to facet arthropathy and uncovertebral spurring. Lung apices appear clear. Thyroid mildly prominent. No acute soft tissue abnormality within the neck. IMPRESSION: 1. Large left supraorbital and frontal subcutaneous hematoma without evidence of underlying calvarial or orbital fracture. 2. Chronic microvascular changes within the white matter. There is no CT evidence of intracranial hemorrhage or of an acute intracranial abnormality. 3. Multilevel cervical degenerative disc disease and facet arthropathy without CT evidence of acute cervical spine fracture or traumatic malalignment. Dictated by: Dictated on workstation # [id number] Dict: 10/23/17 1641 Trans: 10/23/17 170 Interpreted by: PARESH HENDERSON MD Electronically signed by: PARESH HENDERSON MD 10/23/17 170 Diagonstic Imaging: Xray Plain Films/CT/US/NM/MRI: chest Comments NAME: YOMAIRA TENA [facility] REC#: [id number] PT STATUS: DEP ER : 1945 PHYSICIAN: NY JONES MD ADMIT DATE: 10/23/17/ER Signed Date of Exam: 10/23/17 CHEST 1 VIEW, AP/PA ONLY INDICATION: Pelvic and wrist injury. EXAMINATION: Supine AP chest at 5:01 p.m. FINDINGS: The cardiomegaly noted on the prior exam of 07/29/2017 is again evident and no different. The lungs are clear. There is no sign of failure, pneumonia or a pleural effusion. The mediastinum is not widened. The osseous structures are intact. IMPRESSION: There is no evidence for an acute cardiopulmonary abnormality. Dictated by: Dictated on workstation # [id number] Dict: 10/23/17 170 Trans: 10/24/17 1150 Interpreted by: ROMAN PÉREZ MD Electronically signed by: ROMAN PÉREZ MD 10/24/17 1150 Diagonstic Imaging: Xray Plain Films/CT/US/NM/MRI: other (Right wrist) Comments Right wrist x-ray viewed by me and report reviewed. See report below: NAME: YOMAIRA TENA [facility] REC#: [id number] PT STATUS: DEP ER : 1945 PHYSICIAN: NY JONES MD ADMIT DATE: 10/23/17/ER Signed Date of Exam: 10/23/17 WRIST, RIGHT, 3 VIEWS OR MORE INDICATION: Injury, wrist pain. EXAMINATION: Right wrist at 5:04 p.m. Three views were obtained. FINDINGS: On the oblique view, there does appear to be a linear fracture extending longitudinally through the medial third of the articular surface of the distal radius. This finding is not as well appreciated on the other views but I do suspect that there is a fracture in this region. If further imaging is desired, then CT would be recommended. No other fracture or acute bony abnormality is appreciated. There is moderately severe degenerative disease involving the radiocarpal joint and there is ulnar plus variance. The lateral view does show considerable soft tissue edema along the dorsum of the wrist. IMPRESSION: 1. The findings would be consistent with a nondisplaced fracture extending longitudinally through the lateral third of the articular surface of the distal radius. If further evaluation of the extent of the injury to the radius is desired, then CT would be recommended. 2. There is no acute bony abnormality noted otherwise. Dictated by: Dictated on workstation # [id number] Dict: 10/23/171699 Trans: 10/24/17 1226 Interpreted by: ROMAN PÉREZ MD Electronically signed by: ROMAN PÉREZ MD 10/24/17 1226 Diagonstic Imaging: Xray Plain Films/CT/US/NM/MRI: pelvis Comments Pelvis x-ray viewed by me and report reviewed. See report below: NAME: YOMAIRA TENA [facility] REC#: [id number] PT STATUS: DEP ER : 1945 PHYSICIAN: NY JONES MD ADMIT DATE: 10/23/17/ER Signed Date of Exam: 10/23/17 PELVIS TIME: Pelvis at 4:58 p.m. INDICATION: Fell, pelvic pain. Two AP views were obtained. FINDINGS: There is no fracture, dislocation or acute bony abnormality evident. There is a linear lucency along the junction of the superior pubic ramus and inferior pubic symphysis on the right. This finding was also present on the prior abdomen exam of 09/30/2010 and consequently is unlikely to be related to a fracture. There is at least moderate degenerative disease of the hip and sacroiliac joints. These findings have not progressed since the prior exam. The soft tissues are unremarkable. IMPRESSION: 1. There is no evidence for an acute bony abnormality. 2. If clinical concern regarding an occult fracture persists and further imaging is desired, then CT would be recommended. Dictated by: Dictated on workstation # [id number] Dict: 10/23/171701 Trans: 10/24/171216 Interpreted by: ROMAN PÉREZ MD Electronically signed by: ROMAN PÉREZ MD 10/24/17 1217 Departure Impression Primary Impression: Facial hematoma Qualified Codes: S00.83XA - Contusion of other part of head, initial encounter Additional Impressions: Distal radius fracture, right Qualified Codes: S52.501A - Unspecified fracture of the lower end of right radius, initial encounter for closed fracture Fall on same level from tripping as cause of accidental injury Anticoagulated Concussion with brief loss of consciousness Nausea Disposition: 01 HOME, SELF-CARE Condition: Improved Departure-Patient Inst. Decision time for Depature: 18:00 Referrals: MELISSA WOOTEN DO (PCP) Primary Care Physician BOY MERCADO APRN (Family) Primary Care Physician LIA DRISCOLL MD Patient Instructions: HEMATOMA, Wrist Fracture (DC) Add. Discharge Instructions: You'll need to follow-up with Dr. Driscoll or the orthopedic surgeon of your choice. Contact Dr. Driscoll's office first thing on Wednesday. He will be in the [place] office on Wednesday and can see you then. Call the office for an arrival time. You may ice your wrist and forehead in 20 minute intervals to help reduce pain and swelling. Use your hydrocodone pain medication as prescribed. Return to care promptly if you have worsening symptoms such as worsening headache, vision changes, numbness or weakness of the extremities, confusion, uncontrolled vomiting, etc. Skip your next 2 doses of Eliquis. You may resume Eliquis tomorrow evening if your hematoma is no longer expanding and you have no evidence of bleeding elsewhere. Keep your right arm in the sling and splint until otherwise instructed by Dr. Driscoll. Follow-up with your primary care provider as soon as possible for a general checkup and to have your blood pressure checked again. Please note hydrocodone can cause drowsiness and constipation. It is suggested that you take a stool softener such as Colace once or twice daily while on narcotic pain medications like hydrocodone. All discharge instructions reviewed with patient and/or family. Voiced understanding. Scripts Ondansetron (Zofran Odt) 4 Mg Tab.rapdis 4 MG SL Q4H Y for NAUSEA/VOMITING-1ST LINE, #10 TAB Prov: NY JONES MD 10/23/17 Hydrocodone/Acetaminophen (Hydrocodone-Acetamin 5-325 mg) 1 Each Tablet 1-2 EACH PO Q4H, #60 TAB Prov: NY JONES MD 10/23/17 Copy Copies To 1: LIA DRISCOLL MD Copies To 2: MELISSA WOOTEN JOSHUA T MD Oct 23, 2017 18:20
[2017-10-23] MEDS ORDERED: HYDR-3812 PO (18:21)
[2017-10-23] MEDS ORDERED: ONDA4TAB8 SL (18:21)
[2017-10-23 18:32] VITALS: BP 176/101
== END 2017-10-23 18:34 | disposition home or self-care (01) ==
LOC: EDUNIT# 15:37 → ER 15:38
DX: S06.0X1A Concussion with loss of consciousness of 30 minutes or less, initial encounter (principal); S52.591A Other fractures of lower end of right radius, initial encounter for closed fracture; S00.83XA Contusion of other part of head, initial encounter; R40.2142 Coma scale, eyes open, spontaneous, at arrival to emergency department; R40.2252 Coma scale, best verbal response, oriented, at arrival to emergency department; R40.2362 Coma scale, best motor response, obeys commands, at arrival to emergency department; J45.909 Unspecified asthma, uncomplicated; G47.30 Sleep apnea, unspecified; E78.00 Pure hypercholesterolemia, unspecified; I25.10 Atherosclerotic heart disease of native coronary artery without angina pectoris; I48.91 Unspecified atrial fibrillation; I11.0 Hypertensive heart disease with heart failure; I50.9 Heart failure, unspecified; M81.0 Age-related osteoporosis without current pathological fracture; E66.9 Obesity, unspecified; E03.9 Hypothyroidism, unspecified; Z23 Encounter for immunization; Z80.0 Family history of malignant neoplasm of digestive organs; Z88.0 Allergy status to penicillin; Z87.440 Personal history of urinary (tract) infections; Z88.5 Allergy status to narcotic agent; Z88.6 Allergy status to analgesic agent; Z88.8 Allergy status to other drugs, medicaments and biological substances; Z79.01 Long term (current) use of anticoagulants; Z68.28 Body mass index [BMI] 28.0-28.9, adult; Z79.82 Long term (current) use of aspirin; Z79.51 Long term (current) use of inhaled steroids; Z98.51 Tubal ligation status; W18.39XA Other fall on same level, initial encounter
CPT/HCPCS: 36415; 70450; 71045; 72125; 72170; 73110; 80053; 85025; 85610; 85730; 90471; 90715; 96374; 96375

== ENCOUNTER 2017-11-02 11:21 | Observation (INO) | payer MEDICARE, MEDICAID ==
[~2017-11-02] VITALS: Ht 170.2 cm; Wt 106.9 kg
[~2017-11-02 11:21] MED LIST changes: +HYDR-3812 PO; +ONDA4TAB8 SL
--- OUTSIDE RECORDS SUMMARY | 2017-11-02 11:37 | XMS REPORT | Continuity of Care Document ---
Author Author [facility] [place] [facility] Address Unknown Phone Unavailable Allergies Active Description Code Type Severity Reaction Onset Reported/Identified Relationship to Patient Clinical Status Yes aspirin [id number] Drug Allergy Mild N/A 01/04/2014 Yes codeine [id number] Drug Allergy Mild N/A 01/04/2014 Yes opium tincture [id number] Drug Allergy Mild N/A 01/04/2014 Yes Penicillins [id number] Drug Allergy Mild N/A 01/04/2014 Yes Zvuexfr-Iex-Ggo Reductase Inhibitor [id number] Drug Allergy Mild N/A 2013 Yes tramadol [id number] Drug Allergy Mild N/A 01/04/2014 Medications There [...] MD Ot I25.10 ATHSCL HEART DISEASE OF [place] CORONARY 08/21/2015 ANSON POMPA MD Ot I48.0 PAROXYSMAL ATRIAL FIBRILLATION 08/21/2015 ANSON POMPA MD, Ot J44.9 CHRONIC OBSTRUCTIVE PULMONARY DISEASE, U 08/21/2015 ANSON POMPA MD Ot R94.39 ABNORMAL RESULT OF OTHER CARDIOVASCULAR 08/21/2015 ANSON POMPA MD Ot Z68.41 BODY MASS INDEX (BMI) 40.0-44.9, ADULT 08/21/2015 ANSON POMPA MD Ot Z79.01 CONTACT ASSEMBLER (CURRENT) USE OF ANTICOAGULANT 08/21/2015 ANSON POMPA MD Ot Z79.899 OTHER SKILLED NURSING (CURRENT) DRUG THERAPY 08/21/2015 ANSON POMPA MD, Ot Z87.891 PERSONAL HISTORY OF NICOTINE DEPENDENCE 08/21/2015 ANOSN POMPA MD Ot 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 [...] 401.9 09/24/2015 Ot 244.9 09/24/2015 BEL MONAE FIELD REPRESENTATIVE/HEALTH EDUCATION Ot 715.36 09/24/2015 WINSTON ERVIN, ZEB Clark [...] 401.9 09/24/2015 Ot 244.9 09/24/2015 BEL MONAE FIELD REPRESENTATIVE/HEALTH EDUCATION Ot 715.36 09/24/2015 WINSTON ERVIN, ZEB Clark Ot V76.12 09/24/2015 BOY MERCADO APRN Ot I48.91 09/24/2015 PEÑA ERVIN, ANSON Aparicio Ot E78.2 09/24/2015 PEÑA ERVIN, ANSON Aparicio Ot G47.33 09/24/2015 PEÑA ERVIN, ANSON Aparicio Ot I10 09/24/2015 PEÑA ERVIN, ANSON Aparicio Ot I48.0 09/24/2015 PEÑA ERVIN, ANSON Aparicio Ot R07.89 09/26/2015 TERRANCE REVIN, TANG Trent Ot E03.9 09/26/2015 TERRANCE ERVIN, [...] TANG CARLOS MD Ot J06.9 09/28/2015 TANG CRALOS MD Ot J44.9 09/28/2015 TANG CARLOS MD [...] MD Ot I25.10 ATHSCL HEART DISEASE OF [place] CORONARY 09/30/2015 TANG CARLOS MD, Ot I48.0 [...] ADULT 09/30/2015 TANG CARLOS MD, Ot Z79.01 CONTACT ASSEMBLER (CURRENT) USE OF ANTICOAGULANT 09/30/2015 TANG CARLOS [...] MD Ot I25.10 ATHSCL HEART DISEASE OF [place] CORONARY 10/17/2015 ANSON POMPA MD Ot I48.91 [...] MAMMO-MALIGN NEOPLASM OF [place] 12/09/2016 BOY MERCADO TAPE TRANSFERRER Ot I48.91 UNSPECIFIED ATRIAL FIBRILLATION 12/09/2016 ANSON POMPA MD Ot E78.2 MIXED HYPERLIPIDEMIA 12/09/2016 ANSON POMPA MD, Ot G47.33 OBSTRUCTIVE SLEEP APNEA (ADULT) (PEDIATR 12/09/2016 ANSON POMPA MD Ot I10 ESSENTIAL (PRIMARY) HYPERTENSION 12/09/2016 ANSON POMPA MD Ot I48.0 PAROXYSMAL ATRIAL FIBRILLATION 12/09/2016 ANSON POMPA MD Ot R07.89 OTHER CHEST PAIN 12/09/2016 BOY MERCADO TAPE TRANSFERRER Ot Z78.0 ASYMPTOMATIC MENOPAUSAL STATE 12/09/2016 BOY MERCADO TAPE TRANSFERRER Ot Z78.0 ASYMPTOMATIC MENOPAUSAL STATE 12/10/2016 BOY MERCADO TAPE TRANSFERRER Ot Z78.0 ASYMPTOMATIC MENOPAUSAL STATE 12/23/2016 Ot 244.9 HYPOTHYROIDISM NOS 12/23/2016 Ot 272.4 HYPERLIPIDEMIA NEC/NOS 12/23/2016 Ot 401.9 HYPERTENSION NOS 12/23/2016 Ot 244.9 HYPOTHYROIDISM NOS 12/23/2016 Ot 272.4 HYPERLIPIDEMIA NEC/NOS 12/23/2016 Ot 401.9 HYPERTENSION NOS 12/23/2016 Ot 244.9 HYPOTHYROIDISM NOS 12/23/2016 BEL MONAE FIELD REPRESENTATIVE/HEALTH EDUCATION Ot 715.36 LOC OSTEOARTH NOS-L/LEG 12/23/2016 WINSTON ERVIN, ZEB Clark Ot V76.12 OTH SCREEN MAMMO-MALIGN NEOPLASM OF [place] 12/23/2016 MERCADO BOY Graham TAPE TRANSFERRER Ot I48.91 UNSPECIFIED ATRIAL FIBRILLATION 12/23/2016 ANSON [...] APRN Ot I25.10 ATHSCL HEART DISEASE OF [place] CORONARY 12/23/2016 EV DARBY APRN Ot M54.5 LOW BACK PAIN 12/23/2016 EV DARBY APRN Ot N39.0 URINARY TRACT INFECTION, SITE NOT SPECIF 12/23/2016 EV DARBY APRN Ot N76.0 ACUTE VAGINITIS 12/23/2016 VE DARBY APRN Ot Z87.19 PERSONAL HISTORY OF [...] R07.89 OTHER CHEST PAIN 12/25/2016 BOY MERCADO TAPE TRANSFERRER Ot M85.88 OTH DISRD OF BONE DENSITY AND STRUCTURE, 12/25/2016 BOY MERCADO TAPE TRANSFERRER Ot Z78.0 ASYMPTOMATIC MENOPAUSAL STATE 01/14/2017 BOY MERCADO TAPE TRANSFERRER Ot M85.88 OTH DISRD OF BONE DENSITY AND STRUCTURE, 01/14/2017 BOY MERCADO TAPE TRANSFERRER Ot Z78.0 ASYMPTOMATIC MENOPAUSAL STATE 01/20/2017 BOY MERCADO TAPE TRANSFERRER Ot M85.88 OTH DISRD OF BONE DENSITY AND STRUCTURE, 01/20/2017 BOY MERCADO TAPE TRANSFERRER Ot Z78.0 ASYMPTOMATIC MENOPAUSAL STATE 07/28/2017 BOY MERCADO TAPE TRANSFERRER Ot M85.88 OTH DISRD OF BONE DENSITY AND STRUCTURE, 07/28/2017 BOY MERCADO TAPE TRANSFERRER Ot Z78.0 ASYMPTOMATIC MENOPAUSAL STATE 07/29/2017 TERRANCE [...] MD Ot I25.10 ATHSCL HEART DISEASE OF [place] CORONARY 07/29/2017 TANG CARLOS MD Ot I48.2 [...] CARLOS MD, Ot R73.03 PREDIABETES 07/29/2017 TANG CRALOS MD Ot Z68.38 BODY MASS INDEX (BMI) [...] R07.89 OTHER CHEST PAIN 07/29/2017 BOY MERCADO TAPE TRANSFERRER Ot M85.88 OT DISRD OF BONE DENSITY AND STRUCTURE, 07/29/2017 BOY MERCADO TAPE TRANSFERRER Ot Z78.0 ASYMPTOMATIC MENOPAUSAL STATE 08/26/2017 PERI MABRY Ot E78.2 MIXED HYPERLIPIDEMIA 08/26/2017 OTIS PONCE, PERI K Ot I10 ESSENTIAL (PRIMARY) HYPERTENSION 08/26/2017 OTIS PONCE PERI K Ot I25.10 ATHSCL HEART DISEASE OF [place] CORONARY 08/26/2017 PERI MABRY Ot 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 08/26/2017 PERI MABRY Ot R07.89 OTHER CHEST PAIN 08/31/2017 PERI AMBRY Ot E78.2 MIXED HYPERLIPIDEMIA 08/31/2017 OTIS PONCE, PERI K Ot I10 ESSENTIAL (PRIMARY) HYPERTENSION 08/31/2017 OTIS PONCE PERI K Ot I25.10 ATHSCL HEART DISEASE OF [place] CORONARY 08/31/2017 OTIS PONCE PERI K Ot 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 08/31/2017 OTIS PONCE EPRI K Ot R07.89 OTHER CHEST PAIN 09/15/2017 OTIS PONCE PERI K Ot E78.2 MIXED HYPERLIPIDEMIA 09/15/2017 OTIS PONCE PERI K Ot I10 ESSENTIAL (PRIMARY) HYPERTENSION 09/15/2017 OTIS PONCE PERI K Ot I25.10 ATHSCL HEART DISEASE OF [place] CORONARY 09/15/2017 OTIS PONCE PERI K Ot 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 09/15/2017 OTIS PONCE PERI K Ot R07.89 OTHER CHEST PAIN 09/21/2017 PERI MABRY Ot E78.2 MIXED HYPERLIPIDEMIA 09/21/2017 PERI MABRY K Ot I10 ESSENTIAL (PRIMARY) HYPERTENSION 09/21/2017 PERI MABRY Ot I25.10 ATHSCL HEART DISEASE OF [place] CORONARY 09/21/2017 PERI MABRY Ot 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 09/21/2017 PERI MABRY Ot R07.89 OTHER CHEST PAIN 10/26/2017 NY JONES MD Ot E03.9 HYPOTHYROIDISM, UNSPECIFIED 10/26/2017 NY JONES MD Ot E66.9 OBESITY, UNSPECIFIED 10/26/2017 NY JONES MD Ot E78.00 PURE HYPERCHOLESTEROLEMIA, UNSPECIFIED 10/26/2017 NY JONES MD Ot G47.30 SLEEP APNEA, UNSPECIFIED 10/26/2017 NY JONES MD Ot I11.0 HYPERTENSIVE HEART DISEASE WITH HEART FA 10/26/2017 NY JONES MD Ot I25.10 ATHSCL HEART DISEASE OF [place] CORONARY 10/26/2017 NY JONES MD Ot I48.91 UNSPECIFIED ATRIAL FIBRILLATION 10/26/2017 NY JONES MD Ot I50.9 HEART FAILURE, UNSPECIFIED 10/26/2017 YN JONES MD Ot J45.909 UNSPECIFIED ASTHMA, UNCOMPLICATED 10/26/2017 NY JONES MD Ot M81.0 AGE-RELATED OSTEOPOROSIS W/O CURRENT PAT 10/26/2017 NY JONES MD Ot R40.2142 COMA SCALE, EYES OPEN, SPONTANEOUS, EMR 10/26/2017 NY JONES MD Ot R40.2252 COMA SCALE, BEST VERBAL RESPONSE, ORIENT 10/26/2017 NY JONES MD, Ot R40.2362 COMA SCALE, BEST MOTOR RESPONSE, OBEYS C 10/26/2017 NY JONES MD Ot S00.83XA CONTUSION OF OTHER PART OF HEAD, INITIAL 10/26/2017 NY JONES MD Ot S06.0X1A CONCUSSION W LOC OF 30 MINUTES OR LESS, 10/26/2017 NY JONES MD Ot S52.591A OT FRACTURES OF LOWER END OF RIGHT RADI 10/26/2017 NY JONES MD, Ot W18.39XA OTHER FALL ON SAME LEVEL, INITIAL ENCOUN 10/26/2017 NY JONES MD, Ot Z23 ENCOUNTER FOR IMMUNIZATION 10/26/2017 NY JONES MD, Ot Z68.28 BODY MASS INDEX (BMI) 28.0-28.9, ADULT 10/26/2017 NY JONES MD, Ot Z79.01 CONTACT ASSEMBLER (CURRENT) USE OF ANTICOAGULANT 10/26/2017 NY JONES MD, Ot Z79.51 CONTACT ASSEMBLER (CURRENT) USE OF INHALED STERO 10/26/2017 NY JONES MD, Ot Z79.82 CONTACT ASSEMBLER (CURRENT) USE OF ASPIRIN 10/26/2017 NY JONES MD, Ot Z80.0 FAMILY HISTORY OF MALIGNANT NEOPLASM OF 10/26/2017 NY JONES MD, Ot Z87.440 PERSONAL HISTORY OF URINARY (TRACT) INFE 10/26/2017 NY JONES MD, Ot Z88.0 ALLERGY STATUS TO PENICILLIN 10/26/2017 NY JONES MD, Ot Z88.5 ALLERGY STATUS TO NARCOTIC AGENT STATUS 10/26/2017 NY JONES MD, Ot Z88.6 ALLERGY STATUS TO ANALGESIC AGENT STATUS 10/26/2017 NY JONES MD, Ot Z88.8 ALLERGY STATUS TO OT DRUG/MEDS/BIOL SUB 10/26/2017 NY JONES MD, Ot Z98.51 TUBAL LIGATION STATUS Procedures There is no data. Results Test [...] 13:25 Hemoglobin A1c 5.6 % 4.8-5.6 Thyroid Marion Profile - 06/29/16 13:25 TSH 4.150 uIU/mL [...] Complete urinalysis with reflex to culture YES [facility] Bacterial urine culture - 12/23/16 20:01 URINE CULTURE RESULTS <10,000/ML NR Urine Culture, Routine - 02/01/17 13:15 Urine [...] - 08/30/17 12:46 TSH 1.14 mIU/L 0.40-4.50 Complete blood count (CBC) with automated white blood cell (WBC) differential - 10/23/17 15:47 Blood leukocytes automated count (number/volume) 4.3 10*3/uL 4.3-11.0 Blood erythrocytes automated count (number/volume) 4.56 10*6/uL 4.35-5.85 Venous blood hemoglobin measurement (mass/volume) 11.8 g/dL 11.5-16.0 Blood hematocrit (volume fraction) 37 % 35-52 Automated erythrocyte mean corpuscular volume 81 [foz_us] 80-99 Automated erythrocyte mean corpuscular hemoglobin (mass per erythrocyte) 26 pg 25-34 Automated erythrocyte mean corpuscular hemoglobin concentration measurement ( mass/volume) 32 g/dL 32-36 Automated erythrocyte distribution width ratio 14.4 % 10.0-14.5 Automated blood platelet count (count/volume) 207 10*3/uL 130-400 Automated blood platelet mean volume measurement 9.5 [foz_us] 7.4-10.4 Automated blood neutrophils/100 leukocytes 61 % 42-75 Automated blood lymphocytes/100 leukocytes 26 % 12-44 Blood monocytes/100 leukocytes 9 % 0-12 Automated blood eosinophils/100 leukocytes 4 % 0-10 Automated blood basophils/100 leukocytes 0 % 0-10 Blood neutrophils automated count (number/volume) 2.6 10*3 1.8-7.8 Blood lymphocytes automated count (number/volume) 1.1 10*3 1.0-4.0 Blood monocytes automated count (number/volume) 0.4 10*3 0.0-1.0 Automated eosinophil count 0.2 10*3/uL 0.0-0.3 Automated blood basophil count (count/volume) 0.0 10*3/uL 0.0-0.1 Comprehensive metabolic panel - 10/23/17 15:47 Serum or plasma sodium measurement (moles/volume) 140 mmol/L 135-145 Serum or plasma potassium measurement (moles/volume) 4.1 mmol/L 3.6-5.0 Serum or plasma chloride measurement (moles/volume) 107 mmol/L 98-107 Carbon dioxide 23 mmol/L 21-32 Serum or plasma anion gap determination (moles/volume) 10 mmol/L 5-14 Serum or plasma urea nitrogen measurement (mass/volume) 22 mg/dL 7-18 Serum or plasma creatinine measurement (mass/volume) 0.99 mg/dL 0.60-1.30 Serum or plasma urea nitrogen/creatinine mass ratio 22 NRG Serum or plasma creatinine measurement with calculation of estimated glomerular filtration rate 56 NRG Serum or plasma glucose measurement (mass/volume) 110 mg/dL 70-105 Serum or plasma calcium measurement (mass/volume) 9.3 mg/dL 8.5-10.1 Serum or plasma total bilirubin measurement (mass/volume) 0.8 mg/dL 0.1-1.0 Serum or plasma alkaline phosphatase measurement (enzymatic activity/volume) 74 U/L 40-136 Serum or plasma aspartate aminotransferase measurement (enzymatic activity/ volume) 17 U/L 5-34 Serum or plasma alanine aminotransferase measurement (enzymatic activity/volume ) 13 U/L 0-55 Serum or plasma protein measurement (mass/volume) 6.7 g/dL 6.4-8.2 Serum or plasma albumin measurement (mass/volume) 4.0 g/dL 3.2-4.5 PT panel in platelet poor plasma by coagulation assay - 10/23/17 15:47 Prothrombin time (PT) in platelet poor plasma by coagulation assay 15.6 s 12.2-14.7 INR in platelet poor plasma or blood by coagulation assay 1.2 0.8-1.4 Activated partial thromboplastin time (aPTT) in platelet poor plasma bycoagulation assay - 10/23/17 15:47 Activated partial thromboplastin time (aPTT) in platelet poor plasma bycoagulation assay 33 s 24-35 Encounters ACCT No. Visit Date/Time Discharge Status Pt. Type Provider Facility Loc./Unit Complaint [id number] 10/23/2017 15:38:00 10/23/2017 18:34:00 DIS Outpatient NY JONES MD [facility] [id number] 08/25/2017 11:14:00 08/25/2017 23:59:59 CLS Outpatient PERI MABRY [facility] CARD I25.10 CAD [id number] 07/28/2017 19:15:00 07/29/2017 14:05:00 DIS Inpatient TANG CARLOS MD [facility] ICU CHEST PAIN,CHF,CHRONIC AFIB,HTN [id number] 12/24/2016 10:07:00 12/24/2016 23:59:59 CLS Outpatient BOY MERCADO TAPE TRANSFERRER [facility] RAD Z78.0 [id number] 12/23/2016 18:21:00 12/23/2016 20:58:00 DIS Emergency EV DARBY TAPE TRANSFERRER [facility] ER RT SIDED RIB/BACK/KNEE PAIN [id number] 09/24/2015 13:52:00 09/30/2015 13:32:00 DIS Inpatient TANG CARLOS MD [facility] 4TH INFLUENZA LIKE ILLNESS A- FIB W/RVR [id number] 08/21/2015 07:29:00 08/21/2015 15:05:00 DIS Outpatient ANSON POMPA MD [facility] CATH ABNORMAL STRESS,HLP, OBESITY [id number] 07/10/2015 07:53:00 07/10/2015 23:59:59 CLS Outpatient ANSON POMPA MD [facility] CARD AF,CHEST PAIN SYNDROME, HTN,HYPERLIPIDEMIA,JANELLE [id number] 06/21/2015 14:13:00 06/21/2015 23:59:59 CLS Outpatient BOY MERCADO TAPE TRANSFERRER [facility] CARD AFIB [id number] 03/28/2014 07:20:00 03/28/2014 23:59:59 CLS Outpatient ZEB MONTERO MD [facility] RAD SCREENING [id number] 02/19/2014 18:07:00 02/19/2014 23:59:59 CLS Outpatient BEL MONAE FIELD REPRESENTATIVE/HEALTH EDUCATION [facility] RAD OA [id number] 01/04/2014 23:31:00 01/05/2014 00:56:00 DIS Emergency YARITZA LÓPEZ DO [facility] ER RT KNEE PAIN [id number] 10/17/2015 00:07:00 ACT Inpatient PEÑA ERVIN, ANSON Aparicio [facility] ICU CHEST PAIN;CHRONIC A-FIB [id number] 06/21/2015 14:07:00 Document Registration [id number] 06/21/2015 14:07:00 Document Registration [id number] 04/15/2012 08:52:00 Document Registration [id number] 12/10/2011 09:16:00 Document Registration [id number] 11/06/2011 10:24:00 Document Registration [id number] 10/21/2011 21:36:00 Document Registration [id number] 06/03/2011 18:16:00 Document Registration [id number] 03/25/2010 09:39:00 Document Registration [id number] 01/23/2010 12:53:00 Document Registration [id number] 06/30/2016 13:06:00 Document Registration [id number] 10/25/2017 16:40:00 10/25/2017 23:59:59 [facility] [id number] 08/30/2017 11:20:00 Document Registration [id number] 02/03/2017 04:07:00 Document Registration
[2017-11-02 11:42] LABS: BASOPHILS % (AUTO) 1 % (0-10); EOSINOPHILS # (AUTO) 0.3 10^3/uL (0.0-0.3); EOSINOPHILS % (AUTO) 6 % (0-10); HEMATOCRIT 36 % (35-52); HEMOGLOBIN 11.7 G/DL (11.5-16.0); LYMPHOCYTES # (AUTO) 1.1 X 10^3 (1.0-4.0); LYMPHOCYTES % (AUTO) 23 % (12-44); MEAN CORPUSCULAR HEMOGLOBIN 26 PG (25-34); MEAN CORPUSCULAR HGB CONC 32 G/DL (32-36); MEAN CORPUSCULAR VOLUME 81 FL (80-99); MEAN PLATELET VOLUME 8.9 FL (7.4-10.4); MONOCYTES # (AUTO) 0.5 X 10^3 (0.0-1.0); MONOCYTES % (AUTO) 10 % (0-12); NEUTROPHILS # (AUTO) 2.9 X 10^3 (1.8-7.8); NEUTROPHILS % (AUTO) 60 % (42-75); PLATELET COUNT 235 10^3/uL (130-400); RED BLOOD COUNT 4.48 10^6/uL (4.35-5.85); RED CELL DISTRIBUTION WIDTH 14.3 % (10.0-14.5); WHITE BLOOD COUNT 4.7 10^3/uL (4.3-11.0)
[2017-11-02] MEDS ORDERED: ASPIRIN 81 MG CHEW (CHILDREN'S ASA) PO ONE (11:45)
[2017-11-02 11:48] LABS: INR 1.1 (0.8-1.4); PROTHROMBIN TIME PATIENT 14.4 SEC (12.2-14.7)
[2017-11-02 11:56] LABS: ALANINE AMINOTRANSFERASE 10 U/L (0-55); ALBUMIN 3.9 GM/DL (3.2-4.5); ALKALINE PHOSPHATASE 63 U/L (40-136); BILIRUBIN,TOTAL 1.6 MG/DL (0.1-1.0); BUN/CREATININE RATIO 14; CALCIUM 9.6 MG/DL (8.5-10.1); CARBON DIOXIDE 28 MMOL/L (21-32); CHLORIDE 106 MMOL/L (98-107); CREATININE SERUM 1.12 MG/DL (0.60-1.30); GFR ESTIMATED 48; GLUCOSE 98 MG/DL (70-105); MAGNESIUM 2.3 MG/DL (1.8-2.4); POTASSIUM 3.9 MMOL/L (3.6-5.0); SODIUM 141 MMOL/L (135-145); TOTAL PROTEIN 6.8 GM/DL (6.4-8.2)
[2017-11-02 12:02] LABS: MYOGLOBIN SERUM 60.1 NG/ML (10.0-92.0)
--- NOTE | 2017-11-02 12:33 | Diagnostic Imaging Report ---
INDICATION: Weakness, history of fall. TECHNIQUE: Single frontal view of the chest. COMPARISON: 10/23/2017 FINDINGS: Lung volumes are normal. There is mild cardiomegaly. There is mild central vascular congestion. No focal consolidation is seen. There is no pleural effusion or pneumothorax. IMPRESSION: Mild cardiomegaly with mild central vascular congestion. Dictated by: Dictated on workstation # [id number]
[2017-11-02 12:38] VITALS: BP 166/105
[2017-11-02] MEDS ORDERED: NS 250 ML (IVPB) BAG IV ONE (12:45)
[2017-11-02] MEDS ORDERED: IOHEXOL 350 MG/ML 150 ML (OMNIPAQUE 350) VIAL IV ONE (12:45)
--- NOTE | 2017-11-02 13:11 | Diagnostic Imaging Report ---
PROCEDURE: CT angiography of the chest with contrast. TECHNIQUE: Multiple contiguous axial images were obtained through the chest after uneventful bolus administration of intravenous contrast. Reconstructed CTA MIP acquisitions were also performed. INDICATION: Chest pain. COMPARISON: 07/28/2017 FINDINGS: Vasculature: No pulmonary emboli. No CT evidence of pulmonary hypertension or right ventricular strain. Thoracic aorta is normal in caliber. No aortic dissection or pseudoaneurysm. Heart and mediastinum: Stable subcentimeter nodule in the right thyroid lobe. No supraclavicular or axillary lymphadenopathy. No supraclavicular, axillary, or intra-thoracic lymphadenopathy. Heart is enlarged without pericardial effusion. Pleura: No pleural effusion or pneumothorax. Lungs and airway: No endoluminal lesion in the trachea or central bronchi. No pulmonary mass, nodule or consolidation. Upper abdomen: Allowing for the phase of contrast, no acute abnormality in the upper abdomen is seen. Musculoskeletal: No concerning osseous lesion. Degenerative changes within the spine. IMPRESSION: 1. No acute cardiopulmonary process. Specifically, no pulmonary emboli or acute aortic syndrome. 2. Unchanged cardiomegaly. No pulmonary edema or pleural effusions. Dictated by: Dictated on workstation # [id number]
[2017-11-02] MEDS ORDERED: NS IV 1000 ML 1,000 ML IV ONE (13:35)
[2017-11-02] MEDS ORDERED: APIXABAN 5 MG (ELIQUIS) TABLET PO ONE (14:00)
--- NOTE | 2017-11-02 14:07 | ED Chest Pain ---
General Chief Complaint: General Problems/Pain Stated Complaint: HEMORRHOID ISSUES,CP Nursing Triage Note: TO ROOM PER W/C BY Ilene DARBY APRN. C/O HEMORRHOIDS,AND CHEST PAIN FOR 1 WEEK. REPORTS WHEN SHE GETS STRESSED SHE HAS CHEST PAIN. BAO FELL LAST WEEK AND WAS SEEN IN ED AT THAT TIME. BRUISNG TO FACE WITH SPLINT IN R WRIST. PATIENT STATES NOT SPLINT THAT SHE HAS WHEN SHE LEFT LAST WEEK. Nursing Sepsis Screen: No Definite Risk Source: patient Exam Limitations: no limitations History of Present Illness Date Seen by Provider: Nov 02, 2017 Time Seen by Provider: 11:34 Initial Comments This 71-year-old woman presents to the emergency room with complaints of chest pain on exertion for about the past week. She does not have pain at present or at rest. She has history of atrial fibrillation and was previously on Eliquis. She discontinued Eliquis about 10 days ago after having a fall and fracture of the right wrist. She was instructed to restart Eliquis after skipping 2 doses but decided to stay off of it because of the migration of her bruising on the face. She had a large hematoma on the left forehead. Patient had a cardiac catheterization performed in 2015 showing nonobstructive disease. Her press feeder broomcorn is Dr. Savage. Patient also complains that she feels like she has a large hemorrhoid with associated rectal pain. Allergies and Home Medications Allergies Coded Allergies: Penicillins (Verified Allergy, Mild, 01/04/14) Kzqiudb-Knz-Ekv Reductase Inhibitor (Verified Allergy, Mild, 01/04/14) codeine (Verified Allergy, Mild, 01/04/14) opium tincture (Verified Allergy, Mild, 01/04/14) tramadol (Verified Allergy, Mild, 01/04/14) Home Medications Apixaban 5 Mg Tablet, 5 MG PO BID, (Reported) LAST FILLED 04/23/17 #180 Aspirin 81 Mg Tablet.dr, 81 MG PO DAILY, (Reported) Atorvastatin Calcium 10 Mg Tablet, 10 MG PO DAILY, (Reported) LAST FILLED 04/23/17 #90 Hydrochlorothiazide 25 Mg Tablet, 25 MG PO DAILY, (Reported) LAST FILLED 05/17/17 #30 Levothyroxine Sodium 125 Mcg Tablet, 125 MCG PO DAILY, (Reported) Lisinopril 20 Mg Tablet, 20 MG PO DAILY, (Reported) LAST FILLED 07/29/17 #30 Metoprolol Succinate 25 Mg Tab.er.24h, 25 MG PO DAILY, (Reported) [place]-3/Dha/Epa/Fish Oil 1 Each Capsule, 1,000 MG PO BID, (Reported) Tizanidine HCl 4 Mg Tablet, 4 MG PO TID PRN for MUSCLE SPASMS, (Reported) Patient Home Medication List Home Medication List Reviewed: Yes Review of Systems Constitutional: no symptoms reported EENTM: See HPI Respiratory: No Symptoms Reported Cardiovascular: See HPI Gastrointestinal: See HPI Genitourinary: No Symptoms Reported Musculoskeletal: see HPI Skin: see HPI Psychiatric/Neurological: No Symptoms Reported Endocrine: No Symptoms Reported Hematologic/Lymphatic: See HPI Past Eccwsrz-Dbepkj-Othksu Hx Patient Social History Alcohol Use: Occasionally Uses Number of Drinks Today: DD Alcohol Beverage of Choice: Rum Recreational Drug Use: No Smoking Status: Current Everyday Smoker Type Used: Cigarettes Recent Foreign Travel: No Contact w/Someone Who Travel: No Recent Infectious Disease Expo: No Recent Hopitalizations: No Immunizations Up To Date Tetanus Booster (TDap): Unknown Date of Pneumonia Vaccine: Jul 18, 2015 Date of Influenza Vaccine: Jul 18, 2015 Seasonal Allergies Seasonal Allergies: Yes Past Medical History Surgeries: Yes (DENTAL, HEMORRHOIDECTOMY, CARDIAC CATH X 2 ; CATARACTS) Cardiac, Eye Surgery, Rectal, Tubal Ligation Respiratory: Yes (PNEUMONIA A CHILD; ) Asthma, Pneumonia, Sleep Apnea Currently Using CPAP: No (PATIENT WEARS 02 AT NIGHT (3L/NC) ) Currently Using BIPAP: No Cardiac: Yes (CLEAN CATH 09/03, congestive heart failure) Atrial Fibrillation, Coronary Artery Disease, High Cholesterol, Hypertension Neurological: Yes Neuropathy 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 Disorders: No 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 Disorders: Denies 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 Sexually Transmitted Disease: No HIV/AIDS: No Genitourinary: Yes (INCONTINENCE) Bladder Infection, UTI-Chronic Gastrointestinal: Yes Gastroesophageal Reflux, Chronic Constipation, Hemorrhoids, Irritable Bowel Musculoskeletal: Yes Osteoporosis, Arthritis, Fibromyalgia, Chronic Back Pain Endocrine: Yes (HYPOGLYCEMIA; OBESITY) Hypothyroidsim HEENT: Yes (WEARS GLASSES) Cataract Hearing Impairment: Hard of Hearing Cancer: No Psychosocial: Yes Anxiety Integumentary: No Blood Disorders: No Family Medical History Dementia 19 FATHER Drug abuse G8 BROTHER G8 SISTER FH: pancreatic cancer 19 MOTHER ( OF PANCREATIC CA AGE 67) Thyroid disease 19 MOTHER Physical Exam Vital Signs Vital Signs - First Documented 11/02/17 11:21 Temp 98.0 Pulse 76 Resp 18 B/P (MAP) 176/110 (132) Pulse Ox 98 O2 Delivery Room Air Capillary Refill : Less Than 3 Seconds General Appearance: WD/WN, Anxious HEENT: PERRL/EOMI, Other (extensive ecchymosis with migration from the original wound throughout the face and neck. 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 II-XII Norm as Tested Skin: Warm/Dry, Ecchymosis Progress/Results/Core Measures Lab Results Laboratory Tests Test 11/02/17 11:30 Range/Units White Blood Count 4.7 4.3-11.0 10^3/uL Red Blood Count 4.48 4.35-5.85 10^6/uL Hemoglobin 11.7 11.5-16.0 G/DL Hematocrit 36 35-52 % Mean Corpuscular Volume 81 80-99 FL Mean Corpuscular Hemoglobin 26 25-34 PG Mean Corpuscular Hemoglobin Concent 32 32-36 G/DL Red Cell Distribution Width 14.3 10.0-14.5 % Platelet Count 235 130-400 10^3/uL Mean Platelet Volume 8.9 7.4-10.4 FL Neutrophils (%) (Auto) 60 42-75 % Lymphocytes (%) (Auto) 23 12-44 % Monocytes (%) (Auto) 10 0-12 % Eosinophils (%) (Auto) 6 0-10 % Basophils (%) (Auto) 1 0-10 % Neutrophils # (Auto) 2.9 1.8-7.8 X 10^3 Lymphocytes # (Auto) 1.1 1.0-4.0 X 10^3 Monocytes # (Auto) 0.5 0.0-1.0 X 10^3 Eosinophils # (Auto) 0.3 0.0-0.3 10^3/uL Basophils # (Auto) 0.0 0.0-0.1 10^3/uL Prothrombin Time 14.4 12.2-14.7 SEC INR Comment 1.1 0.8-1.4 Activated Partial Thromboplast Time 28 24-35 SEC Sodium Level 141 135-145 MMOL/L Potassium Level 3.9 3.6-5.0 MMOL/L Chloride Level 106 98-107 MMOL/L Carbon Dioxide Level 28 21-32 MMOL/L Anion Gap 7 5-14 MMOL/L Blood Urea Nitrogen 16 7-18 MG/DL Creatinine 1.12 0.60-1.30 MG/DL Estimat Glomerular Filtration Rate 48 BUN/Creatinine Ratio 14 Glucose Level 98 70-105 MG/DL Calcium Level 9.6 8.5-10.1 MG/DL Magnesium Level 2.3 1.8-2.4 MG/DL Total Bilirubin 1.6 H 0.1-1.0 MG/DL Aspartate Amino Transf (AST/SGOT) 13 5-34 U/L Alanine Aminotransferase (ALT/SGPT) 10 0-55 U/L Alkaline Phosphatase 63 40-136 U/L Myoglobin 60.1 10.0-92.0 NG/ML Troponin I < 0.30 <0.30 NG/ML B-Type Natriuretic Peptide 235.9 H <100.0 PG/ML Total Protein 6.8 6.4-8.2 GM/DL Albumin 3.9 3.2-4.5 GM/DL My Orders Orders - NY JONES MD Ct Angio Chest W (11/02/17 12:34) Iohexol Injection (Omnipaque 350 Mg/Ml 1 (11/02/17 12:45) Ns (Ivpb) (Sodium Chloride 0.9%) (11/02/17 12:45) Ns Iv 1000 Ml (Sodium Chloride 0.9%) (11/02/17 13:35) Apixaban Tablet (Eliquis Tablet) (11/02/17 14:00) Medications Given in ED Current Medications Medications Dose Ordered Sig/Kareem Route Start Time Stop Time Status Last Admin Dose Admin Aspirin 324 mg ONCE ONCE PO 11/02/17 11:45 11/02/17 11:46 DC 11/02/17 12:00 324 MG Iohexol 125 ml ONCE ONCE IV 11/02/17 12:45 11/02/17 12:46 DC 4/17/18 12:49 125 ML Sodium Chloride 250 ml ONCE ONCE IV 11/02/17 12:45 11/02/17 12:46 DC 11/02/17 12:49 80 ML Sodium Chloride 1,000 ml @ 0 mls/hr Q0M ONCE IV 11/02/17 13:35 11/02/17 13:37 DC 11/02/17 14:40 1,000 MLS/HR Vital Signs/I&O 11/02/17 11/02/17 11:21 12:38 Temp 98.0 Pulse 76 74 Resp 18 18 B/P (MAP) 176/110 (132) 166/105 (125) Pulse Ox 98 97 O2 Delivery Room Air Room Air Blood Pressure Mean: 125 Progress Note : Time: 14:07 Progress Note Chart was reviewed and cardiac workup was pursued. EKG and troponin showed no acute changes concerning for ischemia. Chest x-ray was unchanged. Patient did not have any chest pain while in the ER. She is convinced her pain is from stress and anxiety. CT angiogram was performed this patient has been off of her anticoagulation and has been somewhat immobile due to her injuries. She also had some tenderness in her calves. CT angiogram was negative. Case was reviewed with Dr. Savage who requested she be admitted for observation. Anal exam and digital rectal exam revealed no hemorrhoids. Patient did have tenderness and a large amount of stool was palpated in the rectal vault. Patient produced a bowel movement after the exam. A liter of IV normal saline was administered as patient has borderline creatinine clearance and IV contrast was administered with the angiogram of the chest. Patient did have a mild elevation in BNP but no overt failure on the chest x-ray. Initial ECG Impression Date: Nov 02, 2017 Initial ECG Impression Time: 11:48 Initial ECG Rate: 74 Initial ECG Rhythm: A Fib/Flutter Comment Rate controlled atrial fibrillation with no acute ischemic changes. Diagonstic Imaging: Xray Plain Films/CT/US/NM/MRI: chest Comments Chest x-ray viewed by me and report reviewed. See report below: NAME: YOMAIRA TENA [facility] REC#: [id number] PT STATUS: REG ER : 1945 PHYSICIAN: EV DARBY APRN ADMIT DATE: 11/02/17/ER Signed Date of Exam: 11/02/17 CHEST 1 VIEW, AP/PA ONLY INDICATION: Weakness, history of fall. TECHNIQUE: Single frontal view of the chest. COMPARISON: 10/23/2017 FINDINGS: Lung volumes are normal. There is mild cardiomegaly. There is mild central vascular congestion. No focal consolidation is seen. There is no pleural effusion or pneumothorax. IMPRESSION: Mild cardiomegaly with mild central vascular congestion. Dictated by: Dictated on workstation # [id number] Dict: 11/02/17 1229 Trans: 11/02/17 1400 Interpreted by: SALENA DELGADO MD Electronically signed by: SALENA DELGADO MD 11/02/17 1400 Diagonstic Imaging: CT Plain Films/CT/US/NM/MRI: chest Comments CT angiogram of the chest viewed by me and report reviewed. See report below: NAME: YOMAIRA TENA [facility] REC#: [id number] PT STATUS: REG ER : 1945 PHYSICIAN: NY JONES MD ADMIT DATE: 11/02/17/ER Draft Date of Exam:11/02/17 CT ANGIO CHEST W PROCEDURE: CT angiography of the chest with contrast. TECHNIQUE: Multiple contiguous axial images were obtained through the chest after uneventful bolus administration of intravenous contrast. Reconstructed CTA MIP acquisitions were also performed. INDICATION: Chest pain. COMPARISON: 07/28/2017 FINDINGS: Vasculature: No pulmonary emboli. No CT evidence of pulmonary hypertension or right ventricular strain. Thoracic aorta is normal in caliber. No aortic dissection or pseudoaneurysm. Heart and mediastinum: Stable subcentimeter nodule in the right thyroid lobe. No supraclavicular or axillary lymphadenopathy. No supraclavicular, axillary, or intra-thoracic lymphadenopathy. Heart is enlarged without pericardial effusion. Pleura: No pleural effusion or pneumothorax. Lungs and airway: No endoluminal lesion in the trachea or central bronchi. No pulmonary mass, nodule or consolidation. Upper abdomen: Allowing for the phase of contrast, no acute abnormality in the upper abdomen is seen. Musculoskeletal: No concerning osseous lesion. Degenerative changes within the spine. IMPRESSION: 1. No acute cardiopulmonary process. Specifically, no pulmonary emboli or acute aortic syndrome. 2. Unchanged cardiomegaly. No pulmonary edema or pleural effusions. Dictated on workstation # [id number] Dict: 11/02/17 1302 Trans: 11/02/17 1310 [facility] [id number] Interpreted by: JULIENNE WRIGHT MD Departure Communication (Admissions) Time/Spoke to Admitting Phy: 13:58 Dr. Calle Time/Spoke to Consulting Phy: 13:50 Dr. Savage Impression Primary Impression: Chest pain on exertion Additional Impressions: Rectal pain Constipation Qualified Codes: K59.00 - Constipation, unspecified Disposition: ADMITTED INPATIENT Condition: Improved Admissions Decision to Admit Reason: Admit from ER (General) Decision to Admit/Date: Nov 02, 2017 Time/Decision to Admit Time: 13:50 Departure-Patient Inst. Referrals: MELISSA WOOTEN DO (PCP) Primary Care Physician BOY MERCADO APRN (Family) Primary Care Physician NY JONES MD Nov 02, 2017 14:07
--- OUTSIDE RECORDS SUMMARY | 2017-11-02 14:40 | XMS REPORT | Continuity of Care Document ---
Author Author [facility] Address Unknown Phone Unavailable Allergies Active Description Code Type Severity Reaction Onset Reported/Identified Relationship to Patient Clinical Status Yes aspirin [id number] Drug Allergy Mild N/A 01/04/2014 Yes codeine [id number] Drug Allergy Mild N/A 01/04/2014 Yes opium tincture [id number] Drug Allergy Mild N/A 01/04/2014 Yes Penicillins [id number] Drug Allergy Mild N/A 01/04/2014 Yes Pekoxbq-Nft-Qjx Reductase Inhibitor [id number] Drug Allergy Mild N/A 2013 Yes tramadol [id number] Drug Allergy Mild N/A 01/04/2014 Medications There [...] MD Ot I25.10 ATHSCL HEART DISEASE OF [place] CORONARY 08/21/2015 ANSON POMPA MD Ot I48.0 PAROXYSMAL ATRIAL FIBRILLATION 08/21/2015 ANSON POMPA MD, Ot J44.9 CHRONIC OBSTRUCTIVE PULMONARY DISEASE, U 08/21/2015 ANSON POMPA MD Ot R94.39 ABNORMAL RESULT OF OTHER CARDIOVASCULAR 08/21/2015 ANSON POMPA MD Ot Z68.41 BODY MASS INDEX (BMI) 40.0-44.9, ADULT 08/21/2015 ANSON POMPA MD Ot 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 08/21/2015 ANSON POMPA MD Ot Z79.899 OTHER RETIREMENT (CURRENT) DRUG THERAPY 08/21/2015 ANSON POMPA MD, [...] 401.9 09/24/2015 Ot 244.9 09/24/2015 BEL MONAE LEAD ANDROID DEVELOPER Ot 715.36 09/24/2015 WINSTON ERVIN, ZEB Clark [...] 401.9 09/24/2015 Ot 244.9 09/24/2015 BEL MONAE LEAD ANDROID DEVELOPER Ot 715.36 09/24/2015 WINSTON ERVIN, ZEB Clark [...] MD Ot I25.10 ATHSCL HEART DISEASE OF [place] CORONARY 09/30/2015 TANG CARLOS MD, Ot I48.0 [...] ADULT 09/30/2015 TANG CARLOS MD, Ot 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 09/30/2015 TANG CARLOS [...] MD Ot I25.10 ATHSCL HEART DISEASE OF [place] CORONARY 10/17/2015 ANSON POMPA MD Ot I48.91 [...] MAMMO-MALIGN NEOPLASM OF [place] 12/09/2016 BOY MERCADO OVERLOCK ELASTIC ATTACHER Ot I48.91 UNSPECIFIED ATRIAL FIBRILLATION 12/09/2016 ANSON POMPA MD Ot E78.2 MIXED HYPERLIPIDEMIA 12/09/2016 ANSON POMPA MD, Ot G47.33 OBSTRUCTIVE SLEEP APNEA (ADULT) (PEDIATR 12/09/2016 ANSON POMPA MD Ot I10 ESSENTIAL (PRIMARY) HYPERTENSION 12/09/2016 ANSON POMPA MD Ot I48.0 PAROXYSMAL ATRIAL FIBRILLATION 12/09/2016 ANSON POMPA MD Ot R07.89 OTHER CHEST PAIN 12/09/2016 BOY MERCADO OVERLOCK ELASTIC ATTACHER Ot Z78.0 ASYMPTOMATIC MENOPAUSAL STATE 12/09/2016 BOY MERCADO OVERLOCK ELASTIC ATTACHER Ot Z78.0 ASYMPTOMATIC MENOPAUSAL STATE 12/10/2016 BOY MERCADO OVERLOCK ELASTIC ATTACHER Ot Z78.0 ASYMPTOMATIC MENOPAUSAL STATE 12/23/2016 Ot 244.9 HYPOTHYROIDISM NOS 12/23/2016 Ot 272.4 HYPERLIPIDEMIA NEC/NOS 12/23/2016 Ot 401.9 HYPERTENSION NOS 12/23/2016 Ot 244.9 HYPOTHYROIDISM NOS 12/23/2016 Ot 272.4 HYPERLIPIDEMIA NEC/NOS 12/23/2016 Ot 401.9 HYPERTENSION NOS 12/23/2016 Ot 244.9 HYPOTHYROIDISM NOS 12/23/2016 BEL MONAE LEAD ANDROID DEVELOPER Ot 715.36 LOC OSTEOARTH NOS-L/LEG 12/23/2016 WINSTON ERVIN, ZEB Clark Ot V76.12 OTH SCREEN MAMMO-MALIGN NEOPLASM OF [place] 12/23/2016 MERCADO BOY Graham OVERLOCK ELASTIC ATTACHER Ot I48.91 UNSPECIFIED ATRIAL FIBRILLATION 12/23/2016 ANSON [...] APRN Ot I25.10 ATHSCL HEART DISEASE OF [place] CORONARY 12/23/2016 EV DARBY APRN Ot M54.5 [...] MD Ot I48.0 PAROXYSMAL ATRIAL FIBRILLATION 12/23/2016 ANSNO POMPA MD Ot R07.89 OTHER CHEST PAIN 12/25/2016 BOY MERCADO OVERLOCK ELASTIC ATTACHER Ot M85.88 OTH DISRD OF BONE DENSITY AND STRUCTURE, 12/25/2016 BOY MERCADO OVERLOCK ELASTIC ATTACHER Ot Z78.0 ASYMPTOMATIC MENOPAUSAL STATE 01/14/2017 BOY MERCADO OVERLOCK ELASTIC ATTACHER Ot M85.88 OTH DISRD OF BONE DENSITY AND STRUCTURE, 01/14/2017 BOY MERCADO OVERLOCK ELASTIC ATTACHER Ot Z78.0 ASYMPTOMATIC MENOPAUSAL STATE 01/20/2017 BOY MERCADO OVERLOCK ELASTIC ATTACHER Ot M85.88 OTH DISRD OF BONE DENSITY AND STRUCTURE, 01/20/2017 BOY MERCADO OVERLOCK ELASTIC ATTACHER Ot Z78.0 ASYMPTOMATIC MENOPAUSAL STATE 07/28/2017 BOY MERCADO OVERLOCK ELASTIC ATTACHER Ot M85.88 OTH DISRD OF BONE DENSITY AND STRUCTURE, 07/28/2017 BOY MERCADO OVERLOCK ELASTIC ATTACHER Ot Z78.0 ASYMPTOMATIC MENOPAUSAL STATE 07/29/2017 TERRANCE [...] MD Ot I25.10 ATHSCL HEART DISEASE OF [place] CORONARY 07/29/2017 TANG CARLOS MD Ot I48.2 [...] R07.89 OTHER CHEST PAIN 07/29/2017 BOY MERCADO OVERLOCK ELASTIC ATTACHER Ot M85.88 OT DISRD OF BONE DENSITY AND STRUCTURE, 07/29/2017 BOY MERCADO OVERLOCK ELASTIC ATTACHER Ot Z78.0 ASYMPTOMATIC MENOPAUSAL STATE 08/26/2017 PERI MABRY Ot E78.2 MIXED HYPERLIPIDEMIA 08/26/2017 OTIS PONCE, PERI K Ot I10 ESSENTIAL (PRIMARY) HYPERTENSION 08/26/2017 OTIS PONCE PERI K Ot I25.10 ATHSCL HEART DISEASE OF [place] CORONARY 08/26/2017 PERI MABRY Ot 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 08/26/2017 PERI MABRY Ot R07.89 OTHER CHEST PAIN 08/31/2017 PERI MABRY Ot E78.2 MIXED HYPERLIPIDEMIA 08/31/2017 OTIS PONCE, PERI K Ot I10 ESSENTIAL (PRIMARY) HYPERTENSION 08/31/2017 OTIS PONCE PERI K Ot I25.10 ATHSCL HEART DISEASE OF [place] CORONARY 08/31/2017 OTIS PONCE PERI K Ot 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 08/31/2017 OTIS PONCE PERI K Ot R07.89 OTHER CHEST PAIN 09/15/2017 OTIS PONCE PERI K Ot E78.2 MIXED HYPERLIPIDEMIA 09/15/2017 OTIS PONCE PERI K Ot I10 ESSENTIAL (PRIMARY) HYPERTENSION 09/15/2017 OTIS PONCE PERI K Ot I25.10 ATHSCL HEART DISEASE OF [place] CORONARY 09/15/2017 OTIS PONCE PERI K Ot 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 09/15/2017 OTIS PONCE PERI K Ot R07.89 OTHER CHEST PAIN 09/21/2017 PERI MABRY Ot E78.2 MIXED HYPERLIPIDEMIA 09/21/2017 PERI MABRY K Ot I10 ESSENTIAL (PRIMARY) HYPERTENSION 09/21/2017 PERI MABRY Ot I25.10 ATHSCL HEART DISEASE OF [place] CORONARY 09/21/2017 PERI MABRY Ot I65.23 OCCLUSION [...] MD Ot I25.10 ATHSCL HEART DISEASE OF [place] CORONARY 10/26/2017 NY JONES MD Ot I48.91 UNSPECIFIED ATRIAL FIBRILLATION 10/26/2017 NY JONES MD Ot I50.9 HEART FAILURE, UNSPECIFIED 10/26/2017 NY JONES MD Ot J45.909 UNSPECIFIED ASTHMA, UNCOMPLICATED [...] ADULT 10/26/2017 NY JONES MD, Ot 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 Type Provider Facility Loc./Unit Complaint [id number] 10/23/2017 15:38:00 10/23/2017 18:34:00 DIS Outpatient NY JONES MD [facility] [id number] 08/25/2017 11:14:00 08/25/2017 23:59:59 CLS Outpatient PERI MABRY [facility] CARD I25.10 CAD [id number] 07/28/2017 19:15:00 07/29/2017 14:05:00 DIS Inpatient TANG CARLOS MD [facility] ICU CHEST PAIN,CHF,CHRONIC AFIB,HTN [id number] 12/24/2016 10:07:00 12/24/2016 23:59:59 CLS Outpatient BOY MERCADO OVERLOCK ELASTIC ATTACHER [facility] RAD Z78.0 [id number] 12/23/2016 18:21:00 12/23/2016 20:58:00 DIS Emergency EV DARBY OVERLOCK ELASTIC ATTACHER [facility] ER RT SIDED RIB/BACK/KNEE PAIN [id number] 09/24/2015 13:52:00 09/30/2015 13:32:00 DIS Inpatient TANG CARLOS MD [facility] 4TH INFLUENZA LIKE ILLNESS A- FIB W/RVR [id number] 08/21/2015 07:29:00 08/21/2015 15:05:00 DIS Outpatient ANSON POMPA MD [facility] CATH ABNORMAL STRESS,HLP, OBESITY [id number] 07/10/2015 07:53:00 07/10/2015 23:59:59 CLS Outpatient ANSON POMPA MD [facility] CARD AF,CHEST PAIN SYNDROME, HTN,HYPERLIPIDEMIA,JANELLE [id number] 06/21/2015 14:13:00 06/21/2015 23:59:59 CLS Outpatient BOY MERCADO OVERLOCK ELASTIC ATTACHER [facility] CARD AFIB [id number] 03/28/2014 07:20:00 03/28/2014 23:59:59 CLS Outpatient ZEB MONTERO MD [facility] RAD SCREENING [id number] 02/19/2014 18:07:00 02/19/2014 23:59:59 CLS Outpatient BEL MONAE LEAD ANDROID DEVELOPER [facility] RAD OA [id number] 01/04/2014 23:31:00 01/05/2014 00:56:00 DIS Emergency YARITZA LÓPEZ DO [facility] ER RT KNEE PAIN [id number] 10/17/2015 00:07:00 ACT Inpatient PEÑA ERVIN, ANSON Aparicio [facility] ICU CHEST PAIN;CHRONIC A-FIB [id number] 06/21/2015 14:07:00 Document Registration [id number] 06/21/2015 14:07:00 Document Registration [id number] 04/15/2012 08:52:00 Document Registration [id number] 12/10/2011 09:16:00 Document Registration [id number] 11/06/2011 10:24:00 Document Registration [id number] 10/21/2011 21:36:00 Document Registration [id number] 06/03/2011 18:16:00 Document Registration [id number] 03/25/2010 09:39:00 Document Registration [id number] 01/23/2010 12:53:00 Document Registration [id number] 06/30/2016 13:06:00 Document Registration [id number] 10/25/2017 16:40:00 10/25/2017 23:59:59 [facility] [id number] 08/30/2017 11:20:00 Document Registration [id number] 02/03/2017 04:07:00 Document Registration
[2017-11-02] MEDS ORDERED: CATHETER FLUSH 10 ML SYR IV PRN (15:45)
[2017-11-02] MEDS ORDERED: NITROGLYCERIN 0.4 MG SL TABS BTL 25'S SL PRN (15:45)
[2017-11-02 16:00] VITALS: BP 197/115
--- NOTE | 2017-11-02 16:38 | Consultation-Cardiology ---
HPI-Cardiology Cardiology Consultation Date of Consultation 11/02/17 Date of Admission Time Seen by Provider: 16:32 Indication: Chest pain HPI 71 years old lady with history of chronic atrial fibrillation, sustained a fall about 10 days ago resulted in a trauma to her face with bruising all over her face and injury to her wrist. She was seen in the emergency room and discharged. Return for increasing diarrhea and abdominal pain. Patient is reporting that she is having alternating constipation and diarrhea. Reporting occasional episode of chest discomfort. On and off. No palpitation. No syncope. Home Medications & Allergies Allergies: Coded Allergies: Penicillins (Verified Allergy, Mild, 01/04/14) Kdhbyre-Bvl-Czr Reductase Inhibitor (Verified Allergy, Mild, 01/04/14) codeine (Verified Allergy, Mild, 01/04/14) opium tincture (Verified Allergy, Mild, 01/04/14) tramadol (Verified Allergy, Mild, 01/04/14) Home Medication List Reviewed: Yes PCV-Nlvpav-Adylbb Hx Patient Social History Marital Status: Employed/Student: employed Alcohol Use: Occasionally Uses Recreational Drug Use: No Smoking Status: Current Everyday Smoker Former smoker/When Quit: Jul 19, 1995 Type Used: Cigarettes Recent Foreign Travel: No Recent Infectious Disease Expo: No Recent Hopitalizations: No Immunizations Up To Date Tetanus Booster (TDap): Unknown Date of Pneumonia Vaccine: Jul 18, 2015 Date of Influenza Vaccine: Jul 18, 2015 Past Medical History Past medical history is discussed below Family Medical History Family History: Dementia 19 FATHER Drug abuse G8 BROTHER G8 SISTER FH: pancreatic cancer 19 MOTHER ( OF PANCREATIC CA AGE 67) Thyroid disease 19 MOTHER Constitutional: see HPI, malaise EENTM: see HPI, other (Bruising on the face around both eyes.) Respiratory: see HPI; No cough, No dyspnea on exertion, No hemoptysis, No orthopnea, No phlegm, No short of breath, No stridor, No wheezing, No other Cardiovascular: see HPI, chest pain; No edema, No Hx of Intervention, No palpitations, No syncope, No vascular heart diseas, No other Gastrointestinal: see HPI, abdominal pain, constipation, diarrhea Genitourinary: no symptoms reported, see HPI Musculoskeletal: no symptoms reported, see HPI Skin: no symptoms reported, see HPI Psychiatric/Neurological: No Symptoms Reported, See HPI Reviewed Test Results Reviewed Test Results Lab Laboratory Tests Test 11/02/17 11:30 Range/Units White Blood Count 4.7 4.3-11.0 10^3/uL Red Blood Count 4.48 4.35-5.85 10^6/uL Hemoglobin 11.7 11.5-16.0 G/DL Hematocrit 36 35-52 % Mean Corpuscular Volume 81 80-99 FL Mean Corpuscular Hemoglobin 26 25-34 PG Mean Corpuscular Hemoglobin Concent 32 32-36 G/DL Red Cell Distribution Width 14.3 10.0-14.5 % Platelet Count 235 130-400 10^3/uL Mean Platelet Volume 8.9 7.4-10.4 FL Neutrophils (%) (Auto) 60 42-75 % Lymphocytes (%) (Auto) 23 12-44 % Monocytes (%) (Auto) 10 0-12 % Eosinophils (%) (Auto) 6 0-10 % Basophils (%) (Auto) 1 0-10 % Neutrophils # (Auto) 2.9 1.8-7.8 X 10^3 Lymphocytes # (Auto) 1.1 1.0-4.0 X 10^3 Monocytes # (Auto) 0.5 0.0-1.0 X 10^3 Eosinophils # (Auto) 0.3 0.0-0.3 10^3/uL Basophils # (Auto) 0.0 0.0-0.1 10^3/uL Prothrombin Time 14.4 12.2-14.7 SEC INR Comment 1.1 0.8-1.4 Activated Partial Thromboplast Time 28 24-35 SEC Sodium Level 141 135-145 MMOL/L Potassium Level 3.9 3.6-5.0 MMOL/L Chloride Level 106 98-107 MMOL/L Carbon Dioxide Level 28 21-32 MMOL/L Anion Gap 7 5-14 MMOL/L Blood Urea Nitrogen 16 7-18 MG/DL Creatinine 1.12 0.60-1.30 MG/DL Estimat Glomerular Filtration Rate 48 BUN/Creatinine Ratio 14 Glucose Level 98 70-105 MG/DL Calcium Level 9.6 8.5-10.1 MG/DL Magnesium Level 2.3 1.8-2.4 MG/DL Total Bilirubin 1.6 H 0.1-1.0 MG/DL Aspartate Amino Transf (AST/SGOT) 13 5-34 U/L Alanine Aminotransferase (ALT/SGPT) 10 0-55 U/L Alkaline Phosphatase 63 40-136 U/L Myoglobin 60.1 10.0-92.0 NG/ML Troponin I < 0.30 <0.30 NG/ML B-Type Natriuretic Peptide 235.9 H <100.0 PG/ML Total Protein 6.8 6.4-8.2 GM/DL Albumin 3.9 3.2-4.5 GM/DL Physical Exam Vital Signs Vital Signs - First Documented 11/02/17 11:21 Temp 98.0 Pulse 76 Resp 18 B/P (MAP) 176/110 (132) Pulse Ox 98 O2 Delivery Room Air Capillary Refill : Less Than 3 Seconds General Appearance: WD/WN, Mild Distress Eyes: Bilateral Eye Normal Inspection (Bruising all over the face and eyes), Bilateral Eye PERRL, Bilateral Eye EOMI HEENT: PERRL/EOMI, Pharynx Normal Neck: Normal Inspection, Supple Respiratory: Chest Non Tender, Lungs Clear, No Respiratory Distress Cardiovascular: No Edema, No Gallop, No JVD, No Murmur, Normal Peripheral Pulses, Irregularly Irregular Gastrointestinal: No Organomegaly, No Pulsatile Mass, Non Tender, Soft, Abnormal Bowel Sounds Back: Normal Inspection, No CVA Tenderness, No Vertebral Tenderness Extremity: Normal Capillary Refill, Non Tender, No Pedal Edema, Other (Right wrist is immobile) Neurologic/Psychiatric: Alert, Oriented x3, No Motor/Sensory Deficits, Normal Mood/Affect Skin: Normal Color, Warm/Dry, Ecchymosis, Other (Bruising and ecchymosis on the face and) Lymphatic: No Adenopathy A/P-Cardiology Admission Diagnosis Chest pain Abdominal pain Persistent atrial fibrillation Trauma to the face Assessment/Plan Chest pain, nonspecific , stress test was done in July 2017 showing no ischemia or infarction, had a cardiac catheterization in 2016 showing mild ectasia in the proximal LAD with slow flow nonobstructive disease. Abdominal pain, alternating diarrhea and constipation. Managed by primary care physician Hypertension, poorly controlled, I will restart lisinopril and Toprol and monitor. Patient did not take her blood pressure medication for the past 3-4 days Status post fall from tripping on concrete and injury to the face and arm, patient was on Eliquis is significant bruising. Persistent atrial fibrillation, rate is controlled. Continue to monitor restart Toprol [id number] score is 3, yearly risk of stroke without oral anticoagulation is 3.2 percent. And has been maintained on Eliquis, I will hold it for now and monitor. Coronary artery disease, cardiac catheterization was done in August 2015 showing mild ectasia in the proximal LAD with slow flow in the proximal LAD at otherwise small vessel disease no significant obstructive disease. Continue to monitor, no changes are recommended. Mild bilateral nonobstructive carotid artery stenosis, continue to monitor COPD, obstructive sleep apnea, using oxygen at night. Hyperlipidemia, continue to monitor lipids Hypothyroidism managed by primary care physician Prediabetes, patient was educated on diet and weight loss. Obesity, BMI is 37, discussed weight loss ANSON POMPA MD Nov 02, 2017 4:38 pm
[2017-11-02] MEDS: lisINopril 40 MG (PRINIVIL) TABLET PO SCH (17:35)
[2017-11-02] MEDS ORDERED: ASPI-983 PO (17:36)
[2017-11-02] MEDS ORDERED: OMEG-160 PO (17:36)
[2017-11-02] MEDS ORDERED: LISI-552 PO (17:36)
[2017-11-02 20:00] VITALS: BP 177/88
[2017-11-02] MEDS: CATHETER FLUSH 10 ML SYR IV SCH (21:20)
[2017-11-03] VITALS (7 sets, daily range): BP systolic 153–189; BP diastolic 82–112
[2017-11-03 04:23] LABS: HEMOGLOBIN 10.8 G/DL (11.5-16.0); MEAN PLATELET VOLUME 9.1 FL (7.4-10.4); RED BLOOD COUNT 4.18 10^6/uL (4.35-5.85); RED CELL DISTRIBUTION WIDTH 14.4 % (10.0-14.5); WHITE BLOOD COUNT 5.1 10^3/uL (4.3-11.0)
[2017-11-03 04:44] LABS: ALBUMIN 3.6 GM/DL (3.2-4.5); BILIRUBIN,TOTAL 1.4 MG/DL (0.1-1.0); CALCIUM 9.1 MG/DL (8.5-10.1); CREATININE SERUM 0.94 MG/DL (0.60-1.30); POTASSIUM 3.3 MMOL/L (3.6-5.0); TOTAL PROTEIN 6.1 GM/DL (6.4-8.2)
[2017-11-03] MEDS: CATHETER FLUSH 10 ML SYR IV SCH ×3 (05:46→20:17)
--- NOTE | 2017-11-03 07:19 | Cardiology Progress Note ---
Subjective Date Seen by Provider: Nov 03, 2017 Time Seen by Provider: 07:16 Subjective/Events-last exam Patient is laying down in bed, still having pain and discomfort in addition to difficulty having bowel movement. No chest pain was reported. Review of Systems General: No Chills, No Night Sweats, No Fatigue, No Malaise, No Appetite, No Other HEENT: No Head Aches, No Visual Changes, No Eye Pain, No Ear Pain, No Dysphasia , No Sinus Congestion, No Post Nasal Drip, No Sore Throat, No Other Pulmonary: No Dyspnea, No Cough, No Pleuritic Chest Pain, No Other Cardiovascular: Chest Pain; No: Palpitations, Orthopnea, Paroxysmal Noc. Dyspnea, Edema, Lt Headedness, Other Gastrointestinal: Abdominal Pain, Constipation Objective-Cardiology Exam Last Set of Vital Signs Vital Signs 11/03/17 04:00 Temp 98.6 Pulse 89 Resp 18 B/P (MAP) 161/90 (113) Pulse Ox 95 O2 Delivery Room Air Capillary Refill : Less Than 3 SecondsLess Than 3 Seconds I&O Intake and Output 11/03/17 00:00 Intake Total 1000 ml Balance 1000 ml IV Total 1000 ml Daily Weight Change No General: Alert, Oriented X3, Cooperative, Mild Distress HEENT: PERRLA, Other (Bruising on the face) Neck: Supple, No JVD, No Thyromegaly Lungs: Clear to Auscultation, Normal Air Movement Heart: Normal S1, Normal S2, No Murmurs, Other (irregular) Abdomen: Normal Bowel Sounds, Soft, No Tenderness, No Hepatosplenomegaly, No Masses Extremities: No Clubbing, No Cyanosis, No Edema, Normal Pulses, No Tenderness/ Swelling Skin: No Rashes, No Breakdown, No Significant Lesion Neuro: Normal Speech, Strength at 5/5 X4 Ext, Normal Tone, Sensation Intact Psych/Mental Status: Mental Status NL, Mood NL Results Lab Laboratory Tests 11/02/17 11:30 11/03/17 03:50 A/P-Cardiology Admission Diagnosis Chest pain Abdominal pain Persistent atrial fibrillation Trauma to the face Assessment/Plan Chest pain, nonspecific , stress test was done in July 2017 showing no ischemia or infarction, had a cardiac catheterization in 2015 showing mild ectasia in the proximal LAD with slow flow nonobstructive disease. Continue to monitor at this time, no changes Abdominal pain, alternating diarrhea and constipation, difficulty having bowel movement, managed by primary care physician Hypokalemia, replace and monitor Anemia, slightly worse today, monitor Hypertension, likely better, I increased lisinopril to 40 mg daily, continue on beta blockers and monitor blood pressure Status post fall from tripping on concrete and injury to the face and arm, patient was on Eliquis, currently on hold, did not see the orthopedic surgeon for her wrist fracture Persistent atrial fibrillation, rate is controlled. Continue to monitor [id number] score is 3, yearly risk of stroke without oral anticoagulation is 3.2 percent. And has been maintained on Eliquis, continue to hold for now Coronary artery disease, cardiac catheterization was done in August 2015 showing mild ectasia in the proximal LAD with slow flow in the proximal LAD at otherwise small vessel disease no significant obstructive disease. Continue to monitor, no changes are recommended. Mild bilateral nonobstructive carotid artery stenosis, continue to monitor COPD, obstructive sleep apnea, using oxygen at night. Hyperlipidemia, continue to monitor lipids Hypothyroidism managed by primary care physician Prediabetes, patient was educated on diet and weight loss. Obesity, BMI is 37, discussed weight loss Clinical Quality Measures DVT/VTE Risk/Contraindication: Risk Factor Score Per Nursin RFS Level Per Nursing on Admit: 4+=Very High ANSON POMPA MD Nov 03, 2017 07:19
[2017-11-03] MEDS ORDERED: KCL 20 MEQ TAB (K-DUR) PO NR ×2 (07:47→12:00)
[2017-11-03] MEDS: lisINopril 40 MG (PRINIVIL) TABLET PO SCH ×2 (09:32→09:41)
[2017-11-03] MEDS: ASPIRIN E.C. 325 MG (ECOTRIN) TABLET PO SCH (09:36)
[2017-11-03] MEDS: ONDANSETRON 4 MG (ZOFRAN) ORAL DISSOLVE TAB PO PRN ×2 (09:40→16:37)
[2017-11-03] MEDS ORDERED: PATIENT MAY USE OWN MEDS, ALL MC SCH (09:45)
[2017-11-03] MEDS ORDERED: OMEGA 3 (FISH OIL) 1000 MG CAP PO SCH (09:46)
--- NOTE | 2017-11-03 10:36 | Diagnostic Imaging Report ---
INDICATION: Constipation and nausea. TECHNIQUE: Supine and upright abdominal films were obtained. FINDINGS: There is no evidence of free air. There is moderate stool throughout the colon with no overt obstruction or ileus. The bowel gas pattern is nonspecific. There is some residual contrast in the bladder. IMPRESSION: Unremarkable supine and upright abdominal films. No evidence of free air or bowel obstruction. Dictated by: Dictated on workstation # [id number]
[2017-11-03] MEDS ORDERED: BISACODYL 10 MG SUPP (DULCOLAX) PR NR (10:45)
[2017-11-03] MEDS ORDERED: POLYETHYLENE GLYCOL 17 GM (MIRALAX) PACK PO NR (10:45)
--- NOTE | 2017-11-03 11:38 | History & Physicial ([facility]) ---
HPI History of Present Illness: 71 yo female admitted via ER with complaint of chest pain on exertion and severe constipation with rectal pain. She also has large bruising to her face, after a fall about a week and a half ago where she broke her wrist. She had vomiting the day after that which she relates to pain. She missed her appointment with Ortho for her wrist due to her severe constipation and rectal pain. She states she has had constipation problems her entire life, but about 6 days ago became markedly worse. She feels as if she is sitting on a large amount of stool and has so much pain it is difficult to walk. She felt she might have a hemorrhoid blocking stool from coming out. She tried magnesium citrate which is what she usually uses and it did not work. She typically uses softeners regularly, but due to finances has not been able to afford. She has also been out of lisinopril. She is nauseated but has not vomited. She does report episodes of intermittent bright red blood per rectum and states she has never had a colonoscopy. Her chest pain was worked up with EKG, negative troponins and she has had more extensive outpatient work up in recent history, Cardiology does not suspect acute cardiac issue at this time. However, her constipation/pain is so severe she does not feel she can go home. Per ER physician, a rectal exam there revealed stool in vault and she had a BM after exam, but has not had any more since admission. She does not think she can tolerate a rectal exam at this time due to pain. Date seen by provider: Nov 03, 2017 Time Seen by Provider: 09:20 Attending Physician Jd Calle MD PCP Brittany Castellanos DO Consult Date of Admission Nov 02, 2017 at 2:01 pm Home Medications Home Medications Reviewed patient Home Medication Reconciliation performed by pharmacy medication reconciliations health type technician and/or nursing. Patients Allergies have been reviewed. Allergies Coded Allergies: Penicillins (Verified Allergy, Mild, 01/04/14) Pnzzfqy-Yvn-Gma Reductase Inhibitor (Verified Allergy, Mild, 01/04/14) codeine (Verified Allergy, Mild, 01/04/14) opium tincture (Verified Allergy, Mild, 01/04/14) tramadol (Verified Allergy, Mild, 01/04/14) LOY-Zepfcf-Zvpwpc Hx Patient Social History Marrital Status: Employed/Student: employed Alcohol Use: Occasionally Uses Recreational Drug Use: No Smoking Status: Current Everyday Smoker Former smoker/When Quit: Jul 19, 1995 Type Used: Cigarettes Recent Foreign Travel: No Contact w/other who traveled: No Recent Hopitalizations: No Recent Infectious Disease Expo: No Physical Abuse Screen: No Sexual Abuse: No Immunizations Up To Date Tetanus Booster (TDap): Unknown Date of Pneumonia Vaccine: Jul 18, 2015 Date of Influenza Vaccine: Jul 18, 2015 Past Medical History Past Medical History 1. Hypertension 2. Atrial Fibrillation 3. Hypothyroidism 4. Hyperlipidemia 5. Fibromyalgia 6. Obesity 7. Moderate sleep apnea prescribed CPAP by Dr. Parks 2011 with 14cm of pressure. Currently only on night time O2 at 2-3L 8. Mild Coronary Artery Disease cath 09/03 Past Surgical History 1. Tubal ligation 2. Cataract lens implants 3. Oral Surgery 4. Hemorrhoidectomy Family Medical History Family History: Dementia 19 FATHER Drug abuse G8 BROTHER G8 SISTER FH: pancreatic cancer 19 MOTHER ( OF PANCREATIC CA AGE 67) Thyroid disease 19 MOTHER Review of Systems ([facility]) Constitutional: no symptoms reported EENTM: no symptoms reported Respiratory: no symptoms reported Cardiovascular: see HPI Gastrointestinal: abdominal pain (RUQ, LUQ), constipation, nausea; No vomiting Genitourinary: no symptoms reported Musculoskeletal: other (wrist pain from fracture) Skin: other (bruising/hematoma to face) Psychiatric/Neurological: Anxiety Reviewed Test Results Reviewed Test Results Lab Laboratory Tests Test 11/02/17 11:30 11/02/17 21:38 11/03/17 03:50 Range/Units White Blood Count 4.7 5.1 4.3-11.0 10^3/uL Red Blood Count 4.48 4.18 L 4.35-5.85 10^6/uL Hemoglobin 11.7 10.8 L 11.5-16.0 G/DL Hematocrit 36 34 L 35-52 % Mean Corpuscular Volume 81 80 80-99 FL Mean Corpuscular Hemoglobin 26 26 25-34 PG Mean Corpuscular Hemoglobin Concent 32 32 32-36 G/DL Red Cell Distribution Width 14.3 14.4 10.0-14.5 % Platelet Count 235 241 130-400 10^3/uL Mean Platelet Volume 8.9 9.1 7.4-10.4 FL Neutrophils (%) (Auto) 60 42-75 % Lymphocytes (%) (Auto) 23 12-44 % Monocytes (%) (Auto) 10 0-12 % Eosinophils (%) (Auto) 6 0-10 % Basophils (%) (Auto) 1 0-10 % Neutrophils # (Auto) 2.9 1.8-7.8 X 10^3 Lymphocytes # (Auto) 1.1 1.0-4.0 X 10^3 Monocytes # (Auto) 0.5 0.0-1.0 X 10^3 Eosinophils # (Auto) 0.3 0.0-0.3 10^3/uL Basophils # (Auto) 0.0 0.0-0.1 10^3/uL Prothrombin Time 14.4 12.2-14.7 SEC INR Comment 1.1 0.8-1.4 Activated Partial Thromboplast Time 28 24-35 SEC Sodium Level 141 140 135-145 MMOL/L Potassium Level 3.9 3.3 L 3.6-5.0 MMOL/L Chloride Level 106 107 98-107 MMOL/L Carbon Dioxide Level 28 23 21-32 MMOL/L Anion Gap 7 10 5-14 MMOL/L Blood Urea Nitrogen 16 14 7-18 MG/DL Creatinine 1.12 0.94 0.60-1.30 MG/DL Estimat Glomerular Filtration Rate 48 59 BUN/Creatinine Ratio 14 15 Glucose Level 98 90 70-105 MG/DL Calcium Level 9.6 9.1 8.5-10.1 MG/DL Magnesium Level 2.3 1.8-2.4 MG/DL Total Bilirubin 1.6 H 1.4 H 0.1-1.0 MG/DL Aspartate Amino Transf (AST/SGOT) 13 13 5-34 U/L Alanine Aminotransferase (ALT/SGPT) 10 9 0-55 U/L Alkaline Phosphatase 63 54 40-136 U/L Myoglobin 60.1 10.0-92.0 NG/ML Troponin I < 0.30 < 0.30 <0.30 NG/ML B-Type Natriuretic Peptide 235.9 H <100.0 PG/ML Total Protein 6.8 6.1 L 6.4-8.2 GM/DL Albumin 3.9 3.6 3.2-4.5 GM/DL Triglycerides Level 82 <150 MG/DL Cholesterol Level 141 < 200 MG/DL LDL Cholesterol Direct 67 1-129 MG/DL VLDL Cholesterol 16 5-40 MG/DL HDL Cholesterol 54 40-60 MG/DL Radiology CTA chest 11/02/17: IMPRESSION: 1. No acute cardiopulmonary process. Specifically, no pulmonary emboli or acute aortic syndrome. 2. Unchanged cardiomegaly. No pulmonary edema or pleural effusions. KUB 11/03/17: IMPRESSION: Unremarkable supine and upright abdominal films. No evidence of free air or bowel obstruction. Moderate stool throughout. Physical Exam-([facility]) Physical Exam Vital Signs VS - Last 72 Hours, by Label 11/02/17 11/02/17 11/02/17 11/02/17 11:21 12:38 14:50 15:28 Temp 98.0 Pulse 76 74 71 96 Resp 18 18 18 B/P (MAP) 176/110 (132) 166/105 (125) 174/112 Pulse Ox 98 97 98 O2 Delivery Room Air Room Air Room Air 11/02/17 11/02/17 11/02/17 11/02/17 15:30 16:00 16:00 19:01 Temp 97.6 Pulse 73 79 Resp 20 B/P (MAP) 197/115 (142) Pulse Ox 97 97 O2 Delivery Room Air Room Air Room Air 11/02/17 11/03/17 11/03/17 11/03/17 20:00 00:00 01:00 04:00 Temp 98.4 98.8 98.6 Pulse 77 86 89 89 Resp 18 18 18 B/P (MAP) 177/88 (117) 163/82 (109) 161/90 (113) Pulse Ox 96 94 95 O2 Delivery Room Air Room Air Room Air 11/03/17 11/03/17 11/03/17 08:06 08:51 08:55 Temp 98.2 Pulse 78 Resp 18 B/P (MAP) 153/89 (110) Pulse Ox 96 O2 Delivery Room Air Room Air Capillary Refill : Less Than 3 SecondsLess Than 3 Seconds General Appearance: no apparent distress Respiratory: lungs clear, normal breath sounds Cardiovascular: regular rate, rhythm, no murmur Gastrointestinal: normal bowel sounds, non tender, soft Rectal: deferred (per patient request, but will repeat if not improving) Extremities: no pedal edema, other (right wrist with splint in place) Neurologic/Psychiatric: alert, normal mood/affect Skin: ecchymosis (face) Assessment/Plan Assessment/Plan Admission Status: Observation (1) Constipation Status: Chronic Assessment & Plan: Acute on chronic, x-ray without evidence of obstruction, no mention of impaction per rectal exam in ED and patient defers repeat exam this am. She does not think she can hold an enema, will try bisacodyl suppository and miralax and if not successful consider aggressive clean out approach with GoLytely. Optimize electrolytes- keep K above 4 and Mg above 2. Qualifiers: Qualified Codes: K59.00 - Constipation, unspecified (2) Rectal pain Status: Acute Assessment & Plan: Unclear etiology with no hemorrhoids noted on ER provider exam. Discussed with her constipation, rectal bleeding and pain, would recommend outpatient colonoscopy after acute episode resolves. (3) Chest pain on exertion Status: Acute Assessment & Plan: EKG without acute changes, troponin negative. Seen by Cardiology and zuleyka for d/c from cardiac standpoint. (4) Hypothyroidism Status: Chronic Assessment & Plan: With severe constipation, will check TSH. (5) Right radial fracture Status: Acute Assessment & Plan: Per verbal report, no operative intervention needed, remain immobilized and follow-up outpatient Qualifiers: Qualified Codes: S52.571D - Other intraarticular fracture of lower end of right radius, subsequent encounter for closed fracture with routine healing (6) Hypertension Status: Chronic Assessment & Plan: Resume home medications Qualifiers: Qualified Codes: I10 - Essential (primary) hypertension (7) Atrial fibrillation Status: Chronic Assessment & Plan: Resume home Eliquis and Toprol Qualifiers: Qualified Codes: I48.2 - Chronic atrial fibrillation (8) DVT prophylaxis Status: Acute Assessment & Plan: On Eliquis Clinical Quality Measures DVT/VTE Risk/Contraindication: Risk Factor Score Per Nursin RFS Level Per Nursing on Admit: 4+=Very High JD CALLE MD Nov 03, 2017 11:38 am
[2017-11-03] MEDS: HYDROCHLOROTHIAZIDE 25 MG (HCTZ) TAB PO SCH (12:54)
[2017-11-03] MEDS ORDERED: GOLYTELY POWDER 4000 ML BTL PO NR (15:00)
--- NOTE | 2017-11-03 15:25 | Diagnostic Imaging Report ---
INDICATION: Abdominal pain and elevated bilirubin. FINDINGS: The liver is mildly enlarged at 18.4 cm. No discrete liver mass is detected. The gallbladder is without stones or sludge. No wall thickening or pericholecystic fluid is identified. No intrahepatic ductal dilatation is seen. Extrahepatic bile duct is obscured. The pancreas is obscured. Right kidney is unremarkable. There is no ascites. IMPRESSION: Mildly compromised due to overlying bowel gas. There is mild hepatomegaly. No other significant abnormality is detected. Dictated by: Dictated on workstation # [id number]
[2017-11-03] MEDS: amLODIPine 5 MG (NORVASC) TAB PO SCH (16:37)
[2017-11-03] MEDS: OMEGA 3 (FISH OIL) 1000 MG CAP PO SCH (20:15)
[2017-11-03] MEDS: NYSTATIN CREAM (MYCOSTATIN) 30 GM TUBE TP SCH (20:15)
[2017-11-03] MEDS: APIXABAN 5 MG (ELIQUIS) TABLET PO SCH (20:16)
[2017-11-03] MEDS ORDERED: APIXABAN 5 MG (ELIQUIS) TABLET PO SCH (21:00)
[2017-11-03] MEDS ORDERED: ATORVASTATIN 10 MG (LIPITOR) TABLET PO SCH ×2 (21:00)
[2017-11-04] VITALS: BP 166/79
[2017-11-04 04:00] VITALS: BP 146/88
[2017-11-04] MEDS: CATHETER FLUSH 10 ML SYR IV SCH (05:10)
[2017-11-04] MEDS ORDERED: LEVOTHYROXINE 125 MCG (LEVOTHROID) TABLET PO SCH ×2 (06:30)
[2017-11-04 06:32] LABS: HEPATITIS C ANTIBODY C Non-Reactive (Non-Reactive)
[2017-11-04 06:47] LABS: HEMOGLOBIN 11.2 G/DL (11.5-16.0); MEAN PLATELET VOLUME 8.9 FL (7.4-10.4); RED BLOOD COUNT 4.41 10^6/uL (4.35-5.85); RED CELL DISTRIBUTION WIDTH 14.2 % (10.0-14.5); WHITE BLOOD COUNT 4.6 10^3/uL (4.3-11.0)
[2017-11-04 07:13] LABS: CALCIUM 9.4 MG/DL (8.5-10.1); CREATININE SERUM 1.17 MG/DL (0.60-1.30); POTASSIUM 3.3 MMOL/L (3.6-5.0)
[2017-11-04 08:00] VITALS: BP 152/77
--- NOTE | 2017-11-04 08:35 | Cardiology Progress Note ---
Subjective Date Seen by Provider: Nov 04, 2017 Time Seen by Provider: 08:34 Subjective/Events-last exam Patient is feeling better, no new complaint, no chest pain or shortness of breath Review of Systems General: No Chills, No Night Sweats, No Fatigue, No Malaise, No Appetite, No Other HEENT: No Head Aches, No Visual Changes, No Eye Pain, No Ear Pain, No Dysphasia , No Sinus Congestion, No Post Nasal Drip, No Sore Throat, No Other Pulmonary: No Dyspnea, No Cough, No Pleuritic Chest Pain, No Other Cardiovascular: No: Chest Pain, Palpitations, Orthopnea, Paroxysmal Noc. Dyspnea, Edema, Lt Headedness, Other Objective-Cardiology Exam Last Set of Vital Signs Vital Signs 11/04/17 04:00 Temp 97.4 Pulse 82 Resp 18 B/P (MAP) 146/88 (107) Pulse Ox 96 O2 Delivery Nasal Cannula O2 Flow Rate 2.00 Capillary Refill : Less Than 3 SecondsLess Than 3 Seconds I&O Intake and Output 11/04/17 00:00 Intake Total 1940 ml Balance 1940 ml Intake Oral 1940 ml # Voids 8 # Bowel Movements 6 General: Alert, Oriented X3, Cooperative, Mild Distress HEENT: PERRLA, Other (Bruising on the face) Neck: Supple, No JVD, No Thyromegaly Lungs: Clear to Auscultation, Normal Air Movement Heart: Normal S1, Normal S2, No Murmurs, Other (irregular) Abdomen: Normal Bowel Sounds, Soft, No Tenderness, No Hepatosplenomegaly, No Masses Extremities: No Clubbing, No Cyanosis, No Edema, Normal Pulses, No Tenderness/ Swelling Skin: No Rashes, No Breakdown, No Significant Lesion Neuro: Normal Speech, Strength at 5/5 X4 Ext, Normal Tone, Sensation Intact Psych/Mental Status: Mental Status NL, Mood NL Results Lab Laboratory Tests 11/04/17 06:25 A/P-Cardiology Admission Diagnosis Chest pain Abdominal pain Persistent atrial fibrillation Trauma to the face Assessment/Plan Chest pain, nonspecific , stress test was done in July 2017 showing no ischemia or infarction, had a cardiac catheterization in 2015 showing mild ectasia in the proximal LAD with slow flow nonobstructive disease. Continue to monitor at this time, no changes Abdominal pain, alternating diarrhea and constipation, responded to medication and feeling better at this point Hypokalemia, replace and monitor Anemia, slightly worse today, monitor Hypertension, better, I increased lisinopril to 40 mg daily, continue on beta blockers and monitor blood pressure Status post fall from tripping on concrete and injury to the face and arm, patient was on Eliquis, currently on hold, did not see the orthopedic surgeon for her wrist fracture Persistent atrial fibrillation, rate is controlled. Continue to monitor [id number] score is 3, yearly risk of stroke without oral anticoagulation is 3.2 percent. And has been maintained on Eliquis, continue to hold for now Coronary artery disease, cardiac catheterization was done in August 2015 showing mild ectasia in the proximal LAD with slow flow in the proximal LAD at otherwise small vessel disease no significant obstructive disease. Continue to monitor, no changes are recommended. Mild bilateral nonobstructive carotid artery stenosis, continue to monitor COPD, obstructive sleep apnea, using oxygen at night. Hyperlipidemia, continue to monitor lipids Hypothyroidism managed by primary care physician Prediabetes, patient was educated on diet and weight loss. Obesity, BMI is 37, discussed weight loss I will sign off, reconsult if needed Clinical Quality Measures DVT/VTE Risk/Contraindication: Risk Factor Score Per Nursin RFS Level Per Nursing on Admit: 4+=Very High ANSON POMPA MD Nov 04, 2017 08:35
[2017-11-04] MEDS ORDERED: KCL 20 MEQ TAB (K-DUR) PO NR (09:00)
[2017-11-04] MEDS: NYSTATIN CREAM (MYCOSTATIN) 30 GM TUBE TP SCH ×2 (09:27→13:06)
[2017-11-04] MEDS: amLODIPine 5 MG (NORVASC) TAB PO SCH (09:28)
[2017-11-04] MEDS: ASPIRIN E.C. 325 MG (ECOTRIN) TABLET PO SCH (09:28)
[2017-11-04] MEDS: ONDANSETRON 4 MG (ZOFRAN) ORAL DISSOLVE TAB PO PRN (09:28)
[2017-11-04] MEDS: APIXABAN 5 MG (ELIQUIS) TABLET PO SCH (09:29)
[2017-11-04] MEDS ORDERED: POLY17PO6 PO (09:30)
[2017-11-04] MEDS ORDERED: VITS42.53 TP (09:30)
[2017-11-04] MEDS ORDERED: AMLO5TAB2 PO (09:30)
[2017-11-04] MEDS ORDERED: LISI40TA PO (09:30)
[2017-11-04] MEDS: OMEGA 3 (FISH OIL) 1000 MG CAP PO SCH (09:31)
--- NOTE | 2017-11-04 09:31 | Discharge Instructions ---
Discharge [facility] Discharge Medications New, Converted or Re-Newed RX: Transmitted to Pharmacy New Medications: Polyethylene Glycol 3350 (Miralax) 17 Gm Powd.pack 17 GM PO TID, #1 EA 0 Refills Vits A and D/White Pet/Lanolin (A and D Ointment) 42.5 Gm Oint...g. 42.5 GM TP TID PRN for Perineal skin irritation, #1 TUBE 0 Refills Amlodipine Besylate (Amlodipine Besylate) 5 Mg Tablet 5 MG PO DAILY, #30 TAB 0 Refills Lisinopril (Lisinopril) 40 Mg Tablet 40 MG PO DAILY, #30 TAB 0 Refills Continued Medications: Apixaban (Eliquis) 5 Mg Tablet 5 MG PO BID, TAB LAST FILLED 04/23/17 #180 Aspirin (Aspirin EC) 81 Mg Tablet.dr 81 MG PO DAILY, TAB Atorvastatin Calcium (Atorvastatin Calcium) 10 Mg Tablet 10 MG PO DAILY, TAB LAST FILLED 04/23/17 #90 Hydrochlorothiazide (Hydrochlorothiazide) 25 Mg Tablet 25 MG PO DAILY, TAB LAST FILLED 05/17/17 #30 Levothyroxine Sodium (Levothyroxine Sodium) 125 Mcg Tablet 125 MCG PO DAILY Metoprolol Succinate (Metoprolol Succinate) 25 Mg Tab.er.24h 25 MG PO DAILY [place]-3/Dha/Epa/Fish Oil (Fish Oil 1,000 mg Softgel) 1 Each Capsule 1000 MG PO BID, CAP Tizanidine HCl (Tizanidine HCl) 4 Mg Tablet 4 MG PO TID PRN for MUSCLE SPASMS, TAB Discontinued Medications: Lisinopril (Lisinopril) 20 Mg Tablet 20 MG PO DAILY, TAB LAST FILLED 07/29/17 #30 Patient Instructions Goal/Follow Up Appt: Follow up with Martin Lutz on 11/11 at 1 pm. Return to The Hospital For: Fever, inability to keep down medications Activity & Diet Discharge Diet: Cardiac Diet Activity as Tolerated: Yes Copy Copies To 1: VINICIO Gillette BETHANY N MD Nov 04, 2017 9:31 am
--- NOTE | 2017-11-04 09:32 | Discharge Summary ---
Diagnosis/Chief Complaint Date of Admission Nov 02, 2017 at 2:01 pm Date of Discharge November 04, 2017 Admission Diagnosis Admission Diagnosis (1) Constipation (2) Rectal pain (3) Chest pain on exertion (4) Hypothyroidism (5) Right radial fracture (6) Hypertension (7) Atrial fibrillation Discharge Diagnosis (1) Constipation Assessment & Plan: Acute on chronic, x-ray without evidence of obstruction, no mention of impaction per rectal exam in ED and patient defers repeat exam this am. She does not think she can hold an enema, will try bisacodyl suppository and miralax and if not successful consider aggressive clean out approach with GoLytely. Optimize electrolytes- keep K above 4 and Mg above 2. 11/04 Resolved with about 1.5 liters of Golytely, will send home on Miralax TID, okay to decrease frequency if stools remain liquid only (2) Rectal pain Assessment & Plan: Unclear etiology with no hemorrhoids noted on ER provider exam. Discussed with her constipation, rectal bleeding and pain, would recommend outpatient colonoscopy after acute episode resolves. 11/04- improved but still present, use A&D ointment and still recommend colonoscopy after recovering from acute episode (3) Chest pain on exertion Assessment & Plan: EKG without acute changes, troponin negative. Seen by Cardiology and zuleyka for d/c from cardiac standpoint. (4) Hypothyroidism Assessment & Plan: With severe constipation, will check TSH- NORMAL (5) Right radial fracture Assessment & Plan: Per verbal report, no operative intervention needed, remain immobilized and follow-up outpatient (6) Hypertension Assessment & Plan: Resume home medications- lisinopril increased to 40 mg and amlodipine 5 mg added per Cardiology due to persistent HTN (7) Atrial fibrillation Assessment & Plan: Resumed home [facility] [place] Chief Complaint/HPI Chief Complaint/HPI 71 yo female admitted via ER with complaint of chest pain on exertion and severe constipation with rectal pain. She also has large bruising to her face, after a fall about a week and a half ago where she broke her wrist. She had vomiting the day after that which she relates to pain. She missed her appointment with Ortho for her wrist due to her severe constipation and rectal pain. She states she has had constipation problems her entire life, but about 6 days ago became markedly worse. She feels as if she is sitting on a large amount of stool and has so much pain it is difficult to walk. She felt she might have a hemorrhoid blocking stool from coming out. She tried magnesium citrate which is what she usually uses and it did not work. She typically uses softeners regularly, but due to finances has not been able to afford. She has also been out of lisinopril. She is nauseated but has not vomited. She does report episodes of intermittent bright red blood per rectum and states she has never had a colonoscopy. Her chest pain was worked up with EKG, negative troponins and she has had more extensive outpatient work up in recent history, Cardiology does not suspect acute cardiac issue at this time. However, her constipation/pain is so severe she does not feel she can go home. Per ER physician, a rectal exam there revealed stool in vault and she had a BM after exam, but has not had any more since admission. She does not think she can tolerate a rectal exam at this time due to pain. Discharge Summary-Simple/Stand Consultations Discharge Physical Examination Allergies: Coded Allergies: Penicillins (Verified Allergy, Mild, 01/04/14) Jdfaanc-Eia-Cah Reductase Inhibitor (Verified Allergy, Mild, 01/04/14) codeine (Verified Allergy, Mild, 01/04/14) opium tincture (Verified Allergy, Mild, 01/04/14) tramadol (Verified Allergy, Mild, 01/04/14) Vitals & I&Os Vital Sign - Last 12Hours Date Time Temp Pulse Resp B/P (MAP) Pulse Ox O2 Delivery O2 Flow Rate FiO2 11/04/17 08:00 97.8 83 20 152/77 (102) 95 Room Air 11/04/17 04:00 2.00 Intake and Output 11/04/17 00:00 Intake Total 1470 ml Balance 1470 ml General Appearance: Alert, No Acute Distress Extremities: Other (right wrist in splint) Skin: Other (ecchymosis on face) Psych/Mental Status: Mental Status NL Hospital Course See final discharge diagnosis. Labs Laboratory Tests Test 11/02/17 11:30 11/02/17 21:38 11/03/17 03:50 11/04/17 06:25 Range/Units White Blood Count 4.7 5.1 4.6 4.3-11.0 10^3/uL Red Blood Count 4.48 4.18 L 4.41 4.35-5.85 10^6/uL Hemoglobin 11.7 10.8 L 11.2 L 11.5-16.0 G/DL Hematocrit 36 34 L 35 35-52 % Mean Corpuscular Volume 81 80 80 80-99 FL Mean Corpuscular Hemoglobin 26 26 25 25-34 PG Mean Corpuscular Hemoglobin Concent 32 32 32 32-36 G/DL Red Cell Distribution Width 14.3 14.4 14.2 10.0-14.5 % Platelet Count 235 241 265 130-400 10^3/uL Mean Platelet Volume 8.9 9.1 8.9 7.4-10.4 FL Neutrophils (%) (Auto) 60 42-75 % Lymphocytes (%) (Auto) 23 12-44 % Monocytes (%) (Auto) 10 0-12 % Eosinophils (%) (Auto) 6 0-10 % Basophils (%) (Auto) 1 0-10 % Neutrophils # (Auto) 2.9 1.8-7.8 X 10^3 Lymphocytes # (Auto) 1.1 1.0-4.0 X 10^3 Monocytes # (Auto) 0.5 0.0-1.0 X 10^3 Eosinophils # (Auto) 0.3 0.0-0.3 10^3/uL Basophils # (Auto) 0.0 0.0-0.1 10^3/uL Prothrombin Time 14.4 12.2-14.7 SEC INR Comment 1.1 0.8-1.4 Activated Partial Thromboplast Time 28 24-35 SEC Sodium Level 141 140 140 135-145 MMOL/L Potassium Level 3.9 3.3 L 3.3 L 3.6-5.0 MMOL/L Chloride Level 106 107 104 98-107 MMOL/L Carbon Dioxide Level 28 23 27 21-32 MMOL/L Anion Gap 7 10 9 5-14 MMOL/L Blood Urea Nitrogen 16 14 16 7-18 MG/DL Creatinine 1.12 0.94 1.17 0.60-1.30 MG/DL Estimat Glomerular Filtration Rate 48 59 46 BUN/Creatinine Ratio 14 15 14 Glucose Level 98 90 92 70-105 MG/DL Calcium Level 9.6 9.1 9.4 8.5-10.1 MG/DL Magnesium Level 2.3 1.8-2.4 MG/DL Total Bilirubin 1.6 H 1.4 H 0.1-1.0 MG/DL Aspartate Amino Transf (AST/SGOT) 13 13 5-34 U/L Alanine Aminotransferase (ALT/SGPT) 10 9 0-55 U/L Alkaline Phosphatase 63 54 40-136 U/L Myoglobin 60.1 10.0-92.0 NG/ML Troponin I < 0.30 < 0.30 <0.30 NG/ML B-Type Natriuretic Peptide 235.9 H <100.0 PG/ML Total Protein 6.8 6.1 L 6.4-8.2 GM/DL Albumin 3.9 3.6 3.2-4.5 GM/DL Triglycerides Level 82 <150 MG/DL Cholesterol Level 141 < 200 MG/DL LDL Cholesterol Direct 67 1-129 MG/DL VLDL Cholesterol 16 5-40 MG/DL HDL Cholesterol 54 40-60 MG/DL Thyroid Stimulating Hormone (TSH) 2.79 0.35-4.94 UIU/ML Hepatitis A IgM Antibody Non-Reactive Non-Reactive Hepatitis B Surface Antigen Non-Reactive Non-Reactive Hepatitis B Core IgM Antibody Non-Reactive Non-Reactive Hepatitis C Antibody Non-Reactive Non-Reactive Radiology Reviewed CTA chest 11/02/17: IMPRESSION: 1. No acute cardiopulmonary process. Specifically, no pulmonary emboli or acute aortic syndrome. 2. Unchanged cardiomegaly. No pulmonary edema or pleural effusions. KUB 11/03/17: IMPRESSION: Unremarkable supine and upright abdominal films. No evidence of free air or bowel obstruction. Moderate stool throughout. Discharge Instructions to patient/family Please see electronic discharge instructions given to patient. Discharge Medications Reviewed and agree with Discharge Medication list on patient's Discharge Instruction sheet Clinical Quality Measures DVT/VTE Risk/Contraindication: Risk Factor Score Per Nursin RFS Level Per Nursing on Admit: 4+=Very High JD DEWITT MD Nov 04, 2017 9:32 am
[2017-11-04] MEDS: HYDROCHLOROTHIAZIDE 25 MG (HCTZ) TAB PO SCH (09:38)
[2017-11-04 12:00] VITALS: BP 135/71
[2017-11-04 16:10] VITALS: BP 130/78
[2017-11-04 18:30] VITALS: BP 138/88
--- NOTE | 2017-11-04 21:26 | Electrophysiology Consultation ---
HPI-Cardiology Cardiology Consultation: Date of Consultation 11/04/17 Date of Admission Attending Physician Jd Dewitt MD Admitting Physician Brittany Castellanos DO Consulting Physician Tremaine EMERSON MD HPI: Time Seen by Provider: 16:00 Chief Complaint: Atrial fibrillation, wide-complex tachycardia. This is a 71-year-old lady who is a patient of Dr. Savage. Dr. Savage requested an EP consultation for atrial fibrillation and wide complex tachycardia. The patient presented initially due to a mechanical fall resulting in significant injury to the facial area. She was on Eliquis which was held. She has history of persistent atrial fibrillation for at least the last one to 2 years. According to the patient she has had 2 mechanical falls in the last 6 months. There have been seldom episodes of dizziness as well. Apparently she also complained of chest discomfort on admission as well. She's had complete evaluation with Dr. Savage including coronary angiography and echocardiogram. The patient has normal LV function on echocardiogram. Review of Systems-Cardiology Review of Systems Constitutional: As described under HPI; No As described under HPI, No no symptoms reported, No chills, No fever, No lightheadedness Eyes: No As described under HPI, No no symptoms reported, No blindness, No blurred vision, No contact lenses, No drainage, No decreased acuity, No foreign body sensation, No pain, No vision change Ears/Nose/Throat: No As described under HPI, No no symptoms reported, No chronic hearing loss, No ear discharge, No ear pain, No nasal drainage, No ulcerations Respiratory: No no symptoms reported; As described under HPI; No As described under HPI, No cough, No orthopnea, No shortness of breath, No SOB with excertion Cardiovascular: No no symptoms reported; As described under HPI; No As described under HPI, No chest pain, No edema; irregular heart rate; No lightheadedness, No palpitations Gastrointestinal: No no symptoms reported, No As described under HPI, No abdomen distended, No abdominal pain, No blood streaked bowels, No constipation , No diarrhea, No nausea, No vomiting, No stool coloration changes Genitourinary: No As described under HPI, No burning, No dysuria, No discharge , No frequency, No flank pain, No hematuria, No urgency : Yes : No Skin: No rash, No skin related problems, No ulcerations Psychiatric/Neurological: No anxiety, No depression, No seizure, No focal weakness, No syncope Hematologic: No bleeding abnormalities [id number] Hx Patient Social History Marrital Status: Employed/Student: employed Alcohol Use: Occasionally Uses Recreational Drug Use: No Smoking Status: Current Everyday Smoker Former smoker/When Quit: Jul 19, 1995 Type Used: Cigarettes Recent Foreign Travel: No Recent Infectious Disease Expo: No Hospitalization with Isolation: Denies Physical Abuse Screen: No Sexual Abuse: No Immunizations Up To Date Tetanus Booster (TDap): Unknown Date of Pneumonia Vaccine: Jul 18, 2015 Date of Influenza Vaccine: Jul 18, 2015 Past Medical History PMH As described under Assessment. Family Medical History Family History: Dementia 19 FATHER Drug abuse G8 BROTHER G8 SISTER FH: pancreatic cancer 19 MOTHER ( OF PANCREATIC CA AGE 67) Thyroid disease 19 MOTHER Allergies and Home Medications Allergies Coded Allergies: Penicillins (Verified Allergy, Mild, 01/04/14) Jxcorcd-Bfa-Hcn Reductase Inhibitor (Verified Allergy, Mild, 01/04/14) codeine (Verified Allergy, Mild, 01/04/14) opium tincture (Verified Allergy, Mild, 01/04/14) tramadol (Verified Allergy, Mild, 01/04/14) Home Medications Amlodipine Besylate 5 Mg Tablet, 5 MG PO DAILY Prescribed by: JD DEWITT on 11/04/17929 Apixaban 5 Mg Tablet, 5 MG PO BID, (Reported) LAST FILLED 04/23/17 #180 Aspirin 81 Mg Tablet.dr, 81 MG PO DAILY, (Reported) Atorvastatin Calcium 10 Mg Tablet, 10 MG PO DAILY, (Reported) LAST FILLED 04/23/17 #90 Hydrochlorothiazide 25 Mg Tablet, 25 MG PO DAILY, (Reported) LAST FILLED 05/17/17 #30 Levothyroxine Sodium 125 Mcg Tablet, 125 MCG PO DAILY, (Reported) Lisinopril 40 Mg Tablet, 40 MG PO DAILY Prescribed by: JD DEWITT on 11/04/17929 Metoprolol Succinate 25 Mg Tab.er.24h, 50 MG PO DAILY, (Reported) [place]-3/Dha/Epa/Fish Oil 1 Each Capsule, 1,000 MG PO BID, (Reported) Polyethylene Glycol 3350 17 Gm Powd.pack, 17 GM PO TID Prescribed by: JD DEWITT on 4/19/18 0930 Tizanidine HCl 4 Mg Tablet, 4 MG PO TID PRN for MUSCLE SPASMS, (Reported) Vits A and D/White Pet/Lanolin 42.5 Gm Oint...g., 42.5 GM TP TID PRN for Perineal skin irritation Prescribed by: JD DEWITT on 11/04/17 0930 Patient Home Medication List Home Medication List Reviewed: Yes Physical Exam-Cardiology Physical Exam Vital Signs/I&O 11/04/17 11/04/17 11/04/17 11/04/17 12:00 13:00 16:10 18:30 Temp 98.5 97.4 Pulse 80 106 85 88 Resp 20 20 20 B/P (MAP) 135/71 (92) 130/78 (95) 138/88 Pulse Ox 96 98 96 O2 Delivery Room Air Room Air Room Air 11/04/17 00:00 Intake Total 1470 ml Balance 1470 ml Capillary Refill : Less Than 3 SecondsLess Than 3 Seconds Constitutional: appears stated age; No apparent distress; well-developed, well- nourished HEENT: PERRL, other (Facial ecchymosis noted); No discharge; hearing is well preserved, oral hygience is good; No ulceration, No xanthelasmas are seen Neck: No carotid bruit; carotid pulses are 2 + bilaterally Respiratory: chest is bilaterally symmetric, lungs clear to auscultation Cardiovascular: No regular rate-rhythm; irregularly irregular; No extra beats, No parasternal heave is noted, No JVD, No edema, No bradycardia, No tachycardia , No point of maximal impulse, No cardiac thrills are palpable; S1 and S2; No gallop/S3, No gallop/S4, No diastolic murmur, No systolic murmur, No friction rub, No click, No other Gastrointestinal: No tender, No soft, No round, No distended, No pulsatile mass , No organomegaly, No guarding, No rebound, No tenderness, No hernia, No mass, No audible bowel sounds, No abnormal bowel sounds, No abdominal bruits, No spleenomegaly, No other Rectal: deferred (per patient request, but will repeat if not improving) Extremities: No normal range of motion, No non-tender, No normal inspection, No pedal edema, No calf tenderness, No normal capillary refill, No pelvis stable , No calf tenderness, No inflammation, No pedal edema, No slow capillary refill , No swelling, No other, No abrasion, No clubbing, No cyanosis, No ecchymosis, No laceration, No no lower extremity edema bilateral, No significant edema, No tenderness, No wound Neurologic/Psychiatric: no motor/sensory deficits, alert, normal mood/affect, oriented x 3, power is 5/5 both on sides Skin: No normal color, No warm/dry, No cyanosis, No cool, No diaphoresis, No damp, No ecchymosis, No jaundice, No mottled, No pallor, No rash, No tattoos/ piercings, No ulcerations, No rash on exposed areas, No ulcerations on exposed areas, No other Data Review Labs Laboratory Tests 11/04/17 06:25: White Blood Count 4.6, Red Blood Count 4.41, Hemoglobin 11.2L, Hematocrit 35, Mean Corpuscular Volume 80, Mean Corpuscular Hemoglobin 25, Mean Corpuscular Hemoglobin Concent 32, Red Cell Distribution Width 14.2, Platelet Count 265, Mean Platelet Volume 8.9, Sodium Level 140, Potassium Level 3.3L, Chloride Level 104, Carbon Dioxide Level 27, Anion Gap 9, Blood Urea Nitrogen 16, Creatinine 1.17, Estimat Glomerular Filtration Rate 46, BUN/Creatinine Ratio 14 , Glucose Level 92, Calcium Level 9.4 ECG Impression ECG Initial ECG Impression: Atrial Fibrillation A/P-Cardiology Assessment/Admission Diagnosis Chronic persistent atrial fibrillation, Nonsustained wide-complex tachycardia, Mechanical fall, Occasional dizziness. Plan Chronic persistent atrial fibrillation: The patient was on apixaban and rate control. Apixaban was held due to recent mechanical fall and significant facial injuries. The decision to restart Eliquis should be made understanding the risk of stroke and also risk of fall causing significant bleeding. All the risks and benefits should be discussed with the patient and then a final decision be made. The patient's CHADSVASC score is atleast 3 (age, gender and HTN). Therefore, in absence of any contraindication oral anticoagulation is superior to aspirin for stroke prevention. Nonsustained wide-complex tachycardia: Patient had brief episodes of wide- complex tachycardia. These were only demonstrated on telemetry strips. Likely diagnosis is atrial fibrillation with aberrant conduction with rapid ventricular rate. However nonsustained ventricular tachycardia cannot be ruled out. Known history of no significant CAD on angiogram and normal EF on echocardiogram. Therefore we will increase the dose of metoprolol to 50 mg a day. Patient should be discharged with an event monitor. Mechanical fall: With severe injuries. 2 episodes in 6 months. This should be discussed vis-a-vis oral anticoagulation. Dizziness: event monitor. Follow up with Dr Savage for Cardiology and myself for Electrophysiology followup as an outpatient. Thank you for your consultation. Please call me if you have any questions. César Emerson MD, FACP, FACC, FSCAI, FHRS, CCDS Interventional Cardiology Cardiac Electrophysiology Vascular Medicine and Endovascular Interventions Clinical Quality Measures DVT/VTE Risk/Contraindication: Risk Factor Score Per Nursin RFS Level Per Nursing on Admit: 4+=Very High Tremaine EMERSON MD Nov 04, 2017 21:26
== END 2017-11-04 09:30 | disposition home or self-care (01) ==
LOC: EDUNIT# 11:21 → ER 11:24 → ICU 14:01 → UNDOADMOB 14:01 → ICU 15:13 → 4TH 11-03 13:30
PROVIDERS: ADMIT Family Medicine; ATTEND Family Medicine
DX: I48.1 Persistent atrial fibrillation (principal); S52.591A Other fractures of lower end of right radius, initial encounter for closed fracture; S00.83XA Contusion of other part of head, initial encounter; R00.0 Tachycardia, unspecified; Z87.891 Personal history of nicotine dependence; I10 Essential (primary) hypertension; R42 Dizziness and giddiness; K59.00 Constipation, unspecified; R07.9 Chest pain, unspecified; E03.9 Hypothyroidism, unspecified; K62.89 Other specified diseases of anus and rectum; R19.7 Diarrhea, unspecified; I25.10 Atherosclerotic heart disease of native coronary artery without angina pectoris; I65.23 Occlusion and stenosis of bilateral carotid arteries; J44.9 Chronic obstructive pulmonary disease, unspecified; G47.33 Obstructive sleep apnea (adult) (pediatric); E78.5 Hyperlipidemia, unspecified; R73.03 Prediabetes; E66.9 Obesity, unspecified; Z68.37 Body mass index [BMI] 37.0-37.9, adult; Z88.0 Allergy status to penicillin; Z88.5 Allergy status to narcotic agent; Z88.6 Allergy status to analgesic agent; Z88.8 Allergy status to other drugs, medicaments and biological substances; W18.39XA Other fall on same level, initial encounter
CPT/HCPCS: 36415; 71045; 71275; 74019; 76705; 80048; 80053; 80061; 80074; 83735; 83874; 83880; 84443; 84484; 85025; 85027; 85610; 85730; 93005; 93041; 96360

== ENCOUNTER 2017-12-03 10:30 | Outpatient (RCR) | payer MEDICARE, MEDICAID ==
[~2017-12-03 10:30] MED LIST changes: +AMLO5TAB2 PO; +ASPI-983 PO; +LISI40TA PO; +OMEG-160 PO; +POLY17PO6 PO; +VITS42.53 TP
== END 2018-02-07 | disposition home or self-care (01) ==
LOC: CARD 10:30
PROVIDERS: ATTEND Internal Medicine Interventional Cardiology
DX: I48.91 Unspecified atrial fibrillation (principal)
CPT/HCPCS: 93270

== ENCOUNTER 2018-06-26 03:14 | Emergency (ER) | payer MEDICARE, MEDICAID ==
[~2018-06-26] VITALS: Ht 170.2 cm; Wt 106.9 kg
[~2018-06-26 03:14] MED LIST changes: -AMLO10TA2 PO; +AMLO10TA6 PO; -AMLO5TAB2 PO; +AMLO5TAB7 PO; -SENN1TAB6 PO; +SENN1TAB7 PO
--- OUTSIDE RECORDS SUMMARY | 2018-06-26 03:20 | XMS REPORT ---
Author Author BOY MERCADO Organization 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 Name Role Phone BOY MERCADO Unavailable PROBLEMS Type Condition ICD9-CM Code VWZ56-GY Code Onset Dates Condition Status SNOMED Code Problem Morbid (severe) obesity due to excess calories E66.01 Active 852559350 Problem Ventricular diastolic dysfunction determined by echocardiography I51.9 Active 391134307 Problem Body mass index (BMI) of 38.0-38.9 in adult Z68.38 Active 555392207 Problem Seasonal allergic rhinitis due to pollen J30.1 Active 31885038 Problem Hepatomegaly R16.0 Active 64339709 Problem Constipation by delayed colonic transit K59.01 Active 58823300 Problem Carpal tunnel syndrome of left wrist G56.02 Active 664592253155087 Problem Sleeps in sitting position due to orthopnea R06.01 Active 880137661643432 Problem Post concussive syndrome F07.81 Active 08559673 Problem Frequent falls R29.6 Active 253047505 Problem Allergic rhinitis J30.9 Active 92831812 Problem Sleep apnea in adult G47.33 Active 58301874 Problem Hypothyroidism, unspecified E03.9 Active 51788393 Problem Hypertension I10 Active 85840998 Problem Hyperlipidemia E78.5 Active 41804399 Problem Mild persistent asthma without complication J45.30 Active 690144968 Problem Morbid obesity E66.01 Active 261500806 Problem Slow transit constipation K59.01 Active 94938981 Problem Atrial fibrillation I48.91 Active 54988134 Problem Fibromyalgia M79.7 Active 103588157 ALLERGIES Substance Reaction Event Type Date Status Simvastatin Pt states that she is allergic to all statins Drug Allergy Jan, Active Penicillin V Potassium vomiting Drug Allergy Jan, Active Coricidin D hyperventilate, anxiety Drug Allergy Jan, Active ENCOUNTERS Encounter Location Date Diagnosis [facility] [address] [facility] [id number] [place] [address] 96866- 1491 Jan, Acute non-recurrent frontal sinusitis J01.10 ; Chest pain on respiration R07.1 ; Dysuria R30.0 ; Hypertension I10 and Seasonal allergic rhinitis due to pollen J30.1 [place] [address] [place] [address] 18337- 4826 Oct, Hypertension I10 ; Atrial fibrillation I48.91 ; Hypothyroidism, unspecified E03.9 ; Fibromyalgia M79.7 ; Mild persistent asthma without complication J45.30 ; Allergic rhinitis J30.9 ; Constipation by delayed colonic transit K59.01 and Hospital discharge follow-up Z09 [place] [address] [place] [id number] [place] [address] 90706- 8221 Oct, [place] [address] [place] [id number] [place] [address] 15983- 3606 Oct, Hospital discharge follow-up Z09 ; Status post fall Z91.81 ; Traumatic black eye of right side, initial encounter S00.11XA ; Traumatic black eye of left side, initial encounter S00.12XA ; Closed fracture of right wrist, initial encounter S62.101A and Post concussive syndrome F07.81 [place] [address] [place] [id number] [place] [address] 45675- 7066 Oct, [place] [address] [place] [id number] [place] [address] 20480- 3255 Aug, Hypertension I10 ; Atrial fibrillation I48.91 ; Hyperlipidemia E78.5 ; Hypothyroidism, unspecified E03.9 ; Mild persistent asthma without complication J45.30 ; Sleep apnea in adult G47.33 ; Fibromyalgia M79.7 ; Ventricular diastolic dysfunction determined by echocardiography I51.9 ; Allergic rhinitis J30.9 ; Morbid (severe) obesity due to excess calories E66.01 and Body mass index (BMI) of 38.0-38.9 in adult Z68.38 [place] [address] [place] [address] 76683- 3664 Jul, Hypertension I10 ; Atrial fibrillation I48.91 ; Mild persistent asthma without complication J45.30 ; Morbid obesity E66.01 ; Hyperlipidemia E78.5 ; Allergic rhinitis J30.9 ; Sleep apnea in adult G47.33 ; Sleeps in sitting position due to orthopnea R06.01 and Carpal tunnel syndrome of left wrist G56.02 [place] [address] [place] [id number] [place] [address] 15017- 9791 11 Jul, 2017 [place] [address] 69983- 0398 Jul, [place] [address] 82776- 2034 Jul, [place] [address] 76543- 7820 14 May, 2017 Hypothyroidism, unspecified E03.9 and Hypertension I10 [place] [address] 43058- 7721 13 May, 2017 Acute bilateral low back pain without sciatica M54.5 ; Dysuria R30.0 and Muscle spasm of back M62.830 [place] [address] [place] [id number] [place] [address] 33426- 9224 06 May, 2017 Hypertension I10 [place] [address] [place] [id number] [place] [address] 15239- 5888 Apr, Hypertension I10 [place] [address] [place] [id number] [place] [address] 18027- 6238 Apr, Hypertension I10 ; Atrial fibrillation I48.91 ; Hyperlipidemia E78.5 and Allergic rhinitis J30.9 [place] [address] [place] [id number] [place] [address] 35808- 4080 Jan, Dysuria R30.0 and Acute cystitis without hematuria N30.00 [place] [address] [place] [id number] [place] [address] 37316- 9800 Jan, Hypothyroidism, unspecified E03.9 and Hypertension I10 [place] [address] 90884- 9167 November, Encounter for well woman exam Z01.419 and Encounter for breast cancer screening other than mammogram Z12.[address] 04972- 6605 Sep, Hypertension I10 ; Atrial fibrillation I48.91 ; Hypothyroidism, unspecified E03.9 ; Morbid obesity E66.01 ; Hyperlipidemia E78.5 ; Mild persistent asthma without complication J45.30 ; Allergic rhinitis J30.9 ; Slow transit constipation K59.01 ; Other viral agents as the cause of diseases classified elsewhere B97.89 ; Acute upper respiratory infection, unspecified J06.9 and H/O fibromyalgia Z87.[address] 62271- 9934 Jul, [address] 64678- 1443 Jun, Routine lab draw Z00.00 ; Hypertension I10 ; Atrial fibrillation I48.91 ; Hypothyroidism, unspecified E03.9 and Morbid obesity E66.01 [place] [address] 87213- 1285 Jun, Hypertension I10 ; Atrial fibrillation I48.91 ; Hypothyroidism, unspecified E03.9 ; Morbid obesity E66.01 ; Hyperlipidemia E78.5 ; Mild persistent asthma without complication J45.30 ; Allergic rhinitis J30.9 and Slow transit constipation K59.[address] 57979- 7360 May, [facility] [address] [address] Apr, Bug bite, initial encounter W57.XXXA [address] 29122- 8110 Mar, Chronic atrial fibrillation I48.[address] 61205- 4558 Dec, Hypertension I10 ; H/O fibromyalgia Z87.39 ; Atrial fibrillation I48.91 ; Hypothyroidism, unspecified E03.9 ; Morbid obesity E66.01 ; History of asthma Z87.09 ; Hyperlipidemia E78.5 and Shortness of breath R06.02 [facility] [address] [place] [id number] [place] [address] 30039- 0942 November, [facility] [address] 96632 -1637 Oct, Candidal dermatitis B37.2 [place] [address] 71951- 5274 Oct, [place] [address] 09511- 0756 Sep, Mild persistent asthma without complication J45.30 ; Dysuria R30.0 ; Leukopenia D72.819 ; Hypertension I10 and Vaginal cayla B37.3 [place] [address] 55441- 8269 Jul, [place] [address] 10493- 1137 Jun, [place] [address] 19876- 2630 Jun, [place] [address] 56791- 0257 Jun, [place] [address] 55744- 0704 May, HTN (hypertension) I10 ; Hypertension I10 ; H/O fibromyalgia Z87.39 ; Atrial fibrillation I48.91 ; Hypothyroidism, unspecified E03.9 ; Morbid obesity E66.01 and Hyperlipidemia E78.5 [place] [address] 19820- 9869 May, [place] [address] 13650- 2494 May, [place] [address] [place] [address] 11 May, 2015 General medical exam Z00.00 ; Hypertension I10 ; H/O fibromyalgia Z87.39 ; Irregular heart beat I49.9 ; Dysuria R30.0 ; Dietary counseling Z71.3 ; Exercise counseling Z71.89 ; Sleep apnea in adult G47.33 ; Atrial fibrillation I48.91 ; Hypothyroidism, unspecified E03.9 and Morbid obesity E66.01 [place] [address] [place] [address] 10 May, 2015 General medical exam Z00.00 ; Hypertension I10 ; H/O fibromyalgia Z87.39 ; Dysuria R30.0 ; Dietary counseling Z71.3 ; Exercise counseling Z71.89 ; Sleep apnea in adult G47.33 ; Atrial fibrillation I48.91 ; Hypothyroidism, unspecified E03.9 ; Morbid obesity E66.01 ; Allergic rhinitis J30.9 and History of asthma Z87.09 [place] [address] [place] [id number] [place] [address]267 November, [place] [address] [place] [id number] [place] [address] 82425- 1770 November, IMMUNIZATIONS No Known Immunizations SOCIAL HISTORY Never Assessed REASON FOR VISIT Head trauma F/U -- nell teran PLAN OF CARE Activity Details Follow Up 3 Months, prn Reason:CHM/HTN VITAL SIGNS Height 67 in 2018-01-21 Weight 238.0 lbs 2018-01-21 Temperature 98.3 degrees Fahrenheit 2018-01-21 Heart Rate 90 bpm 2018-01-21 Respiratory Rate 20 2018-01-21 BMI 37.27 kg/m2 2018-01-21 Blood pressure systolic 160 mmHg 2018-01-21 Blood pressure diastolic 92 mmHg 2018-01-21 MEDICATIONS Medication Instructions Dosage Frequency Start Date End Date Duration Status Hydrochlorothiazide 25 MG Orally Once a day 1 tablet 24h Active Cetirizine HCl 10 mg Orally Once a day 1 tablet 24h Apr, 90 days Active MiraLax 17 gm/dose Orally Once a day 1 packet mixed with 8 ounces of fluid 24h Active Diltiazem HCl ER 240 MG Orally Once a day 1 capsule on an empty stomach in the morning 24h Sep, Active Lisinopril 40 MG TAKE ONE (1) TABLET BY MOUTH ONCE DAILY 30 Active Oxygen ... 2-3L while sleeping Active Atorvastatin Calcium 10 mg Orally Once a day TAKE ONE TABLET BY MOUTH ONCE DAILY 24h 90 days Active Levothyroxine Sodium 125 MCG TAKE ONE TABLET BY MOUTH ONCE DAILY 90 Active ProAir HFA 108 (90 Base) MCG/ACT Inhalation every 4 hrs 2 puffs as needed 4h 12 months Active Flonase 50 MCG/ACT Nasally Once a day 2 spray in each nostril 24h 12 months Active Advair Diskus 250-50 MCG/DOSE Inhalation Twice a day 1 puff 12h 12 months Active Amlodipine Besylate 5 MG TAKE ONE (1) TABLET BY MOUTH ONCE DAILY 30 Active Metoprolol Succinate ER 25 MG TAKE ONE TABLET BY MOUTH ONCE DAILY Active Azithromycin 250 MG Orally Once a day 2 tablets on the first day, then 1 tablet daily for 4 days 24h Jan, Jan, 5 day(s) Active Eliquis 5 mg Orally 2 times a day 1 tablet 12h Active Fish Oil 1000 MG Orally Twice a day 1 capsule 12h Active RESULTS Name Result Date Reference Range UA LONG DIP (IN HOUSE) 2018-01-21 Lot # [id number] Exp date 10/2018 Clarity clear Color yellow Odor none GLU neg MOOK 1+ KET negative SG 1.030 BLO 1+ pH 5.5 Protein trace URO 1.0 NIT negative RENETTA negative Lot # Exp date Xray : Chest 2 View (IN HOUSE) 2018-01-21 PROCEDURES Procedure Date Ordered Result Body Site URINALYSIS, AUTO, W/O SCOPE January 21, 2018 X-RAY EXAM CHEST 2 VIEWS January 21, 2018 [facility] ESTABLISHED PATIENT January 21, 2018 INSTRUCTIONS MEDICATIONS ADMINISTERED No Known Medications MEDICAL [...] and left side is -1 Medical History 2017- ECHO- EF 55-65%, cocentric hypertrophy, Grade 1 diastolic dysfunction, dilated left and right atrium, mld mitral regurg. mild tricuspid regurg., Medical History Osteopenia of left lower leg Surgical History tubal ligation Surgical History oral surgery Surgical History cataract-lens implants Surgical History hemorrhoidectomy Hospitalization History PID Hospitalization History Influenza-like illness; A-fib w/ RVR 09/24/2015 Hospitalization History CHF Exhaserbation 07/2017 Hospitalization History [facility], HTN 11/02/17
--- OUTSIDE RECORDS SUMMARY | 2018-06-26 03:20 | XMS REPORT ---
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 Name Role Phone alejandraBOY Hussein Unavailable PROBLEMS Type Condition ICD9-CM Code LTB90-FR Code Onset Dates Condition Status SNOMED Code Problem Morbid (severe) obesity due to excess calories E66.01 Active 451367942 Problem Ventricular diastolic dysfunction determined by echocardiography I51.9 Active 724049565 Problem Body mass index (BMI) of 38.0-38.9 in adult Z68.38 Active 599299036 Problem Seasonal allergic rhinitis due to pollen J30.1 Active 48955980 Problem Hepatomegaly R16.0 Active 76623607 Problem Constipation by delayed colonic transit K59.01 Active 79501243 Problem Carpal tunnel syndrome of left wrist G56.02 Active 572893519906266 Problem Sleeps in sitting position due to orthopnea R06.01 Active 733749118841654 Problem Post concussive syndrome F07.81 Active 98535856 Problem Frequent falls R29.6 Active 427708593 Problem Allergic rhinitis J30.9 Active 36950671 Problem Sleep apnea in adult G47.33 Active 25237820 Problem Hypothyroidism, unspecified E03.9 Active 56928889 Problem Hypertension I10 Active 90080659 Problem Hyperlipidemia E78.5 Active 38137102 Problem Mild persistent asthma without complication J45.30 Active 626705422 Problem Morbid obesity E66.01 Active 149829122 Problem Slow transit constipation K59.01 Active 96958880 Problem Atrial fibrillation I48.91 Active 47391633 Problem Fibromyalgia M79.7 Active 520966375 ALLERGIES Substance Reaction Event Type Date Status Simvastatin Pt states that she is allergic to all statins Drug Allergy Mar, Active Penicillin V Potassium vomiting Drug Allergy Mar, Active Coricidin D hyperventilate, anxiety Drug Allergy Mar, Active ENCOUNTERS Encounter Location Date Diagnosis [facility] [address] [place] [address] 82213- 6277 Mar, Contusion of pelvic region, initial encounter S30.0XXA and Fall, initial encounter W19.XXXA [place] [id number] [place] [address] 13873- 3241 Jan, Acute non-recurrent frontal sinusitis J01.10 ; Chest pain on respiration R07.1 ; Dysuria R30.0 ; Hypertension I10 and Seasonal allergic rhinitis due to pollen J30.1 [place] [address] [place] [id number] [place] [address] 42925- 6787 Oct, Hypertension I10 ; Atrial fibrillation I48.91 ; Hypothyroidism, unspecified E03.9 ; Fibromyalgia M79.7 ; Mild persistent asthma without complication J45.30 ; Allergic rhinitis J30.9 ; Constipation by delayed colonic transit K59.01 and Hospital discharge follow-up Z09 [place] [id number] [place] [address] 78043- 4487 Oct, [place] [address] [place] [id number] [place] [address] 63212- 7573 Oct, Hospital discharge follow-up Z09 ; Status post fall Z91.81 ; Traumatic black eye of right side, initial encounter S00.11XA ; Traumatic black eye of left side, initial encounter S00.12XA ; Closed fracture of right wrist, initial encounter S62.101A and Post concussive syndrome F07.81 [place] [address] [place] [id number] [place] [address] 81796- 5797 Oct, [place] [id number] [place] [address] 07518- 8408 Aug, Hypertension I10 ; Atrial fibrillation I48.91 ; Hyperlipidemia E78.5 ; Hypothyroidism, unspecified E03.9 ; Mild persistent asthma without complication J45.30 ; Sleep apnea in adult G47.33 ; Fibromyalgia M79.7 ; Ventricular diastolic dysfunction determined by echocardiography I51.9 ; Allergic rhinitis J30.9 ; Morbid (severe) obesity due to excess calories E66.01 and Body mass index (BMI) of 38.0-38.9 in adult Z68.38 [place] [address] [place] [id number] [place] [address] 61860- 3939 Jul, Hypertension I10 ; Atrial fibrillation I48.91 ; Mild persistent asthma without complication J45.30 ; Morbid obesity E66.01 ; Hyperlipidemia E78.5 ; Allergic rhinitis J30.9 ; Sleep apnea in adult G47.33 ; Sleeps in sitting position due to orthopnea R06.01 and Carpal tunnel syndrome of left wrist G56.02 [place] [address] [place] [id number] [place] [address] 80884- 1800 11 Jul, 2017 [place] [address] 37527- 0517 10 Jul, 2017 [place] [address] [place] [id number] [place] [address] 64432- 2038 08 Jul, 2017 [place] [address] 40862- 8398 14 May, 2017 Hypothyroidism, unspecified E03.9 and Hypertension I10 [place] [address] [place] [id number] [place] [address] 41609- 4062 13 May, 2017 Acute bilateral low back pain without sciatica M54.5 ; Dysuria R30.0 and Muscle spasm of back M62.830 [place] [address] [place] [id number] [place] [address] 10480- 4420 06 May, 2017 Hypertension I10 [place] [address] [place] [id number] [place] [address] 02659- 1455 Apr, Hypertension I10 [place] [address] [place] [id number] [place] [address] 83316- 3400 Apr, Hypertension I10 ; Atrial fibrillation I48.91 ; Hyperlipidemia E78.5 and Allergic rhinitis J30.9 [place] [address] [place] [id number] [place] [address] 16305- 2046 Jan, Dysuria R30.0 and Acute cystitis without hematuria N30.00 [place] [address] [place] [id number] [place] [address] 43868- 6523 Jan, Hypothyroidism, unspecified E03.9 and Hypertension I10 [address] 97325- 8197 11 Nov, 2016 Encounter for well woman exam Z01.419 and Encounter for breast cancer screening other than mammogram Z12.[address] 12803- 7669 Sep, Hypertension I10 ; Atrial fibrillation I48.91 ; Hypothyroidism, unspecified E03.9 ; Morbid obesity E66.01 ; Hyperlipidemia E78.5 ; Mild persistent asthma without complication J45.30 ; Allergic rhinitis J30.9 ; Slow transit constipation K59.01 ; Other viral agents as the cause of diseases classified elsewhere B97.89 ; Acute upper respiratory infection, unspecified J06.9 and H/O fibromyalgia Z87.[address] 97617- 6230 Jul, [address] 95273- 7975 Jun, Routine lab draw Z00.00 ; Hypertension I10 ; Atrial fibrillation I48.91 ; Hypothyroidism, unspecified E03.9 and Morbid obesity E66.[address] 22176- 7004 Jun, Hypertension I10 ; Atrial fibrillation I48.91 ; Hypothyroidism, unspecified E03.9 ; Morbid obesity E66.01 ; Hyperlipidemia E78.5 ; Mild persistent asthma without complication J45.30 ; Allergic rhinitis J30.9 and Slow transit constipation K59.[address] 62534- 3871 May, [facility] [address] [place] [id number] [place] [address] 90773 -1314 06 Apr, 2016 Bug bite, initial encounter W57.XXXA [address] 37540- 4223 Mar, Chronic atrial fibrillation I48.2 [place] [address] 00347- 7460 Dec, Hypertension I10 ; H/O fibromyalgia Z87.39 ; Atrial fibrillation I48.91 ; Hypothyroidism, unspecified E03.9 ; Morbid obesity E66.01 ; History of asthma Z87.09 ; Hyperlipidemia E78.5 and Shortness of breath R06.02 [place] [address] 98918- 9920 November, [facility] [address] 64351 -1128 Oct, Candidal dermatitis B37.2 [place] [address] 95341- 5112 Oct, [address] 04314- 4809 Sep, Mild persistent asthma without complication J45.30 ; Dysuria R30.0 ; Leukopenia D72.819 ; Hypertension I10 and Vaginal cayla B37.[address] 25613- 6221 Jul, [place] [address] 75338- 8702 Jun, [address] 20785- 4182 Jun, [place] [address] 87283- 6838 14 Jun, [address] 76062- 1161 May, HTN (hypertension) I10 ; Hypertension I10 ; H/O fibromyalgia Z87.39 ; Atrial fibrillation I48.91 ; Hypothyroidism, unspecified E03.9 ; Morbid obesity E66.01 and Hyperlipidemia E78.5 [place] [address] [place] [address]- 7411 May, [place] [address] 45586- 0616 May, [place] [address] 09052- 2902 11 May, 2015 General medical exam Z00.00 ; Hypertension I10 ; H/O fibromyalgia Z87.39 ; Irregular heart beat I49.9 ; Dysuria R30.0 ; Dietary counseling Z71.3 ; Exercise counseling Z71.89 ; Sleep apnea in adult G47.33 ; Atrial fibrillation I48.91 ; Hypothyroidism, unspecified E03.9 and Morbid obesity E66.01 [place] [address] 10492- 5196 10 May, 2015 General medical exam Z00.00 ; Hypertension I10 ; H/O fibromyalgia Z87.39 ; Dysuria R30.0 ; Dietary counseling Z71.3 ; Exercise counseling Z71.89 ; Sleep apnea in adult G47.33 ; Atrial fibrillation I48.91 ; Hypothyroidism, unspecified E03.9 ; Morbid obesity E66.01 ; Allergic rhinitis J30.9 and History of asthma Z87.09 [place] [address] [place] [id number] [place] [address] 13603- 2785 November, [place] [address] 76046- 9254 November, IMMUNIZATIONS No Known Immunizations SOCIAL HISTORY Never Assessed REASON FOR VISIT fell yesterday inside while turning around, fell on left side, hurt elbow, hip, shoulder and neck Mikayla FATIMA PLAN OF CARE Activity Details Follow Up 3 Months, prn Reason:CHM/ W/Lucinda VITAL SIGNS Height 67 in 2018-04-07 Weight 245.5 lbs 2018-04-07 Temperature 97.7 degrees Fahrenheit 2018-04-07 Heart Rate 84 bpm 2018-04-07 Respiratory Rate 20 2018-04-07 BMI 38.45 kg/m2 2018-04-07 Blood pressure systolic 132 mmHg 2018-04-07 Blood pressure diastolic 82 mmHg 2018-04-07 MEDICATIONS Medication Instructions Dosage Frequency Start Date End Date Duration Status Levothyroxine Sodium 125 MCG TAKE ONE TABLET BY MOUTH ONCE DAILY 90 Active Flonase 50 MCG/ACT Nasally Once a day 2 spray in each nostril 24h 12 months Active ProAir HFA 108 (90 Base) MCG/ACT Inhalation every 4 hrs 2 puffs as needed 4h 12 months Active Metoprolol Succinate ER 25 MG TAKE ONE TABLET BY MOUTH ONCE DAILY Active Eliquis 5 MG TAKE ONE TABLET BY MOUTH TWICE DAILY 90 Active Atorvastatin Calcium 10 MG TAKE ONE TABLET BY MOUTH ONCE DAILY 90 Active MiraLax 17 gm/dose Orally Once a day 1 packet mixed with 8 ounces of fluid 24h Active Hydrochlorothiazide 25 MG TAKE ONE TABLET BY MOUTH ONCE DAILY 30 Active Amlodipine Besylate 5 MG TAKE ONE (1) TABLET BY MOUTH ONCE DAILY 30 Active Polyethylene Glycol 3350 - MIX 17 GRAMS IN 8 OUNCES OF SUITABLE LIQUID AND DRINK THREE (3) TIMES DAILY 10 Active Oxygen ... 2-3L while sleeping Active Lisinopril 40 MG TAKE ONE (1) TABLET BY MOUTH ONCE DAILY 30 Active Diltiazem HCl ER 240 MG Orally Once a day 1 capsule on an empty stomach in the morning 24h Sep, Active RESULTS Name Result Date Reference Range Xray : Shoulder, Left 2 view (IN HOUSE) 2018-04-07 Xray : Spine, Thoracic 2 views (IN HOUSE) 2018-04-07 Xray : Spine, Lumbar 2-3 views (IN HOUSE) 2018-04-07 Xray : Pelvis 1-2 views (IN HOUSE) 2018-04-07 Xray : Spine, Cervical (IN HOUSE) 2018-04-07 PROCEDURES Procedure Date Ordered Result Body Site X-RAY EXAM OF SHOULDER Apr 07, 2018 X-RAY EXAM OF NECK SPINE Apr 07, 2018 X-RAY EXAM OF THORACIC SPINE Apr 07, 2018 X-RAY EXAM OF LOWER SPINE Apr 07, 2018 [facility] VISIT ESTABLISHED PATIENT Apr 07, 2018 X-RAY EXAM OF PELVIS Apr 07, 2018 INSTRUCTIONS MEDICATIONS ADMINISTERED No Known Medications [...] heart cath 08/2015 Medical History Dexa scan- 6/8/17- Lumbar T-score -0.4, right femoral neck is [...]
--- OUTSIDE RECORDS SUMMARY | 2018-06-26 03:21 | XMS REPORT ---
Author Author BOY MERCADO Organization [facility] Address [address] [place] [address] Care Team Providers Care Web Analytics Developer Name Role Phone BOY MERCADO Unavailable PROBLEMS Type Condition ICD9-CM Code VSS14-WG Code Onset Dates Condition Status SNOMED Code Problem Morbid (severe) obesity due to excess calories E66.01 Active 453289996 Problem Ventricular diastolic dysfunction determined by echocardiography I51.9 Active 938952684 Problem Body mass index (BMI) of 38.0-38.9 in adult Z68.38 Active 098299965 Problem Seasonal allergic rhinitis due to pollen J30.1 Active 48849957 Problem Hepatomegaly R16.0 Active 58893106 Problem Constipation by delayed colonic transit K59.01 Active 60245269 Problem Carpal tunnel syndrome of left wrist G56.02 Active 131901831998610 Problem Sleeps in sitting position due to orthopnea R06.01 Active 218476578707622 Problem Post concussive syndrome F07.81 Active 66137489 Problem Frequent falls R29.6 Active 129535057 Problem Allergic rhinitis J30.9 Active 60457722 Problem Sleep apnea in adult G47.33 Active 21819842 Problem Hypothyroidism, unspecified E03.9 Active 90326872 Problem Hypertension I10 Active 27984739 Problem Hyperlipidemia E78.5 Active 44096612 Problem Mild persistent asthma without complication J45.30 Active 267566493 Problem Morbid obesity E66.01 Active 477663604 Problem Slow transit constipation K59.01 Active 38691786 Problem Atrial fibrillation I48.91 Active 02928149 Problem Fibromyalgia M79.7 Active 419297096 ALLERGIES Substance Reaction Event Type Date Status Simvastatin Pt states that she is allergic to all statins Drug Allergy Oct, Active Penicillin V Potassium vomiting Drug Allergy Oct, Active Coricidin D hyperventilate, anxiety Drug Allergy Oct, Active ENCOUNTERS Encounter Location Date Diagnosis [facility] [address] [facility] [id number] [place] [address]88- 1604 Jan, Acute non-recurrent frontal sinusitis J01.10 ; Chest pain on respiration R07.1 ; Dysuria R30.0 ; Hypertension I10 and Seasonal allergic rhinitis due to pollen J30.1 [place] [address] [place] [address] 35450- 0570 Oct, Hypertension I10 ; Atrial fibrillation I48.91 ; Hypothyroidism, unspecified E03.9 ; Fibromyalgia M79.7 ; Mild persistent asthma without complication J45.30 ; Allergic rhinitis J30.9 ; Constipation by delayed colonic transit K59.01 and Hospital discharge follow-up Z09 [place] [address] [place] [id number] [place] [address] 65545- 4882 Oct, [place] [address] [place] [id number] [place] [address] 60410- 1446 Oct, Hospital discharge follow-up Z09 ; Status post fall Z91.81 ; Traumatic black eye of right side, initial encounter S00.11XA ; Traumatic black eye of left side, initial encounter S00.12XA ; Closed fracture of right wrist, initial encounter S62.101A and Post concussive syndrome F07.81 [place] [address] [place] [id number] [place] [address] 27583- 9295 Oct, [place] [address] [place] [id number] [place] [address] 05101- 3317 Aug, Hypertension I10 ; Atrial fibrillation I48.91 ; Hyperlipidemia E78.5 ; Hypothyroidism, unspecified E03.9 ; Mild persistent asthma without complication J45.30 ; Sleep apnea in adult G47.33 ; Fibromyalgia M79.7 ; Ventricular diastolic dysfunction determined by echocardiography I51.9 ; Allergic rhinitis J30.9 ; Morbid (severe) obesity due to excess calories E66.01 and Body mass index (BMI) of 38.0-38.9 in adult Z68.38 [place] [address] [place] [address] 03995- 5014 Jul, Hypertension I10 ; Atrial fibrillation I48.91 ; Mild persistent asthma without complication J45.30 ; Morbid obesity E66.01 ; Hyperlipidemia E78.5 ; Allergic rhinitis J30.9 ; Sleep apnea in adult G47.33 ; Sleeps in sitting position due to orthopnea R06.01 and Carpal tunnel syndrome of left wrist G56.02 [place] [address] [place] [id number] [place] [address] 69716- 6879 11 Jul, 2017 [place] [address] 75597- 0698 Jul, [place] [address] 39174- 4216 Jul, [place] [address] 51460- 3793 14 May, 2017 Hypothyroidism, unspecified E03.9 and Hypertension I10 [place] [address] 99483- 7816 13 May, 2017 Acute bilateral low back pain without sciatica M54.5 ; Dysuria R30.0 and Muscle spasm of back M62.830 [place] [address] [place] [id number] [place] [address] 08772- 9888 06 May, 2017 Hypertension I10 [place] [address] [place] [id number] [place] [address] 38918- 0455 Apr, Hypertension I10 [place] [address] [place] [id number] [place] [address] 62854- 4895 Apr, Hypertension I10 ; Atrial fibrillation I48.91 ; Hyperlipidemia E78.5 and Allergic rhinitis J30.9 [place] [address] [place] [id number] [place] [address] 48843- 8341 Jan, Dysuria R30.0 and Acute cystitis without hematuria N30.00 [place] [address] [place] [id number] [place] [address] 38191- 3099 Jan, Hypothyroidism, unspecified E03.9 and Hypertension I10 [place] [address] 78845- 1548 November, Encounter for well woman exam Z01.419 and Encounter for breast cancer screening other than mammogram Z12.[address] 67[address] Sep, Hypertension I10 ; Atrial fibrillation I48.91 ; Hypothyroidism, unspecified E03.9 ; Morbid obesity E66.01 ; Hyperlipidemia E78.5 ; Mild persistent asthma without complication J45.30 ; Allergic rhinitis J30.9 ; Slow transit constipation K59.01 ; Other viral agents as the cause of diseases classified elsewhere B97.89 ; Acute upper respiratory infection, unspecified J06.9 and H/O fibromyalgia Z87.[address] [address]62- 9413 Jul, [address] 41519- 3467 Jun, Routine lab draw Z00.00 ; Hypertension I10 ; Atrial fibrillation I48.91 ; Hypothyroidism, unspecified E03.9 and Morbid obesity E66.01 [place] [address] 64143- 7406 Jun, Hypertension I10 ; Atrial fibrillation I48.91 ; Hypothyroidism, unspecified E03.9 ; Morbid obesity E66.01 ; Hyperlipidemia E78.5 ; Mild persistent asthma without complication J45.30 ; Allergic rhinitis J30.9 and Slow transit constipation K59.[address] 70684- 1744 May, [facility] [address] [address] Apr, Bug bite, initial encounter W57.XXXA [address] 47337- 0023 Mar, Chronic atrial fibrillation I48.[address] 69429- 6885 Dec, Hypertension I10 ; H/O fibromyalgia Z87.39 ; Atrial fibrillation I48.91 ; Hypothyroidism, unspecified E03.9 ; Morbid obesity E66.01 ; History of asthma Z87.09 ; Hyperlipidemia E78.5 and Shortness of breath R06.02 [facility] [address] [place] [id number] [place] [address] 66052- 5292 November, [facility] [address] 95[address]01[address] Oct, Candidal dermatitis B37.2 [place] [address] 04130- 4235 Oct, [place] [address] 35878- 0438 Sep, Mild persistent asthma without complication J45.30 ; Dysuria R30.0 ; Leukopenia D72.819 ; Hypertension I10 and Vaginal cayla B37.3 [place] [address] 35300- 2306 Jul, [place] [address] 89297- 3285 Jun, [place] [address] 75679- 4339 Jun, [place] [address] 17861- 9675 Jun, [place] [address] 91648- 3705 May, HTN (hypertension) I10 ; Hypertension I10 ; H/O fibromyalgia Z87.39 ; Atrial fibrillation I48.91 ; Hypothyroidism, unspecified E03.9 ; Morbid obesity E66.01 and Hyperlipidemia E78.5 [place] [address] 34070- 8988 May, [place] [address] 49958- 3057 May, [place] [address] [place] [address] 11 May, 2015 General medical exam Z00.00 ; Hypertension I10 ; H/O fibromyalgia Z87.39 ; Irregular heart beat I49.9 ; Dysuria R30.0 ; Dietary counseling Z71.3 ; Exercise counseling Z71.89 ; Sleep apnea in adult G47.33 ; Atrial fibrillation I48.91 ; Hypothyroidism, unspecified E03.9 and Morbid obesity E66.01 [facility] [address] [place] [id number] [address] 10 May, 2015 General medical exam Z00.00 ; Hypertension I10 ; H/O fibromyalgia Z87.39 ; Dysuria R30.0 ; Dietary counseling Z71.3 ; Exercise counseling Z71.89 ; Sleep apnea in adult G47.33 ; Atrial fibrillation I48.91 ; Hypothyroidism, unspecified E03.9 ; Morbid obesity E66.01 ; Allergic rhinitis J30.9 and History of asthma Z87.09 [place] [address] [address] November, [place] [address] [place] [id number] [place] [address] 63378- 7223 November, IMMUNIZATIONS No Known Immunizations SOCIAL HISTORY Never Assessed REASON FOR VISIT Hospital f/u- ER-Fell in back yard Wednesday night-AHarrymanRN, Fractured right wrist PLAN OF CARE Activity Details Follow Up 1 Week, 3 Months, prn Reason: VITAL SIGNS Height 67 in 2017-10-25 Weight 243.1 lbs 2017-10-25 Temperature 97.4 degrees Fahrenheit 2017-10-25 Heart Rate 78 bpm 2017-10-25 Respiratory Rate 20 2017-10-25 BMI 38.07 kg/m2 2017-10-25 Blood pressure systolic 148 mmHg 2017-10-25 Blood pressure diastolic 82 mmHg 2017-10-25 MEDICATIONS Medication Instructions Dosage Frequency Start Date End Date Duration Status Diltiazem HCl ER 240 MG Orally Once a day 1 capsule on an empty stomach in the morning 24h Sep, Active Cetirizine HCl 10 mg Orally Once a day 1 tablet 24h Apr, Active Atorvastatin Calcium 10 mg Orally Once a day TAKE ONE TABLET BY MOUTH ONCE DAILY 24h 90 days Active Oxygen ... 2-3L while sleeping Active Flonase 50 MCG/ACT Nasally Once a day 2 spray in each nostril 24h Active Eliquis 5 mg Orally 2 times a day 1 tablet 12h Active Docusate Sodium 100 MG Orally Once a day 1 capsule as needed 24h Not-Taking Metoprolol Succinate ER 25 MG TAKE ONE TABLET BY MOUTH ONCE DAILY 90 Active ProAir HFA 108 (90 Base) MCG/ACT Inhalation every 4 hrs 2 puffs as needed 4h Active Fish Oil 1000 MG Orally Twice a day 1 capsule 12h Active Levothyroxine Sodium 125 MCG TAKE ONE TABLET BY MOUTH ONCE DAILY 90 Active Lisinopril 20 MG Orally Once a day 1 tablet 24h Active Hydrochlorothiazide 25 MG Orally Once a day 1 tablet 24h Active Advair Diskus 250-50 MCG/DOSE Inhalation Twice a day 1 puff 12h 12 months Not-Taking Hydrocodone-Acetaminophen 5-325 MG Orally every 6 hrs 1 tablet as needed 6h Active RESULTS No Results PROCEDURES Procedure Date Ordered Result Body Site [facility]ISIT ESTABLISHED PATIENT October 25, 2017 INSTRUCTIONS MEDICATIONS ADMINISTERED No Known Medications MEDICAL [...]
--- OUTSIDE RECORDS SUMMARY | 2018-06-26 03:21 | XMS REPORT ---
Author Author BOY MERCADO Organization [facility] Address [address] [place] [address] Care Team Providers Care Cad Designer Drafter Name Role Phone BOY MERCADO Unavailable PROBLEMS Type Condition ICD9-CM Code [id number] Code Onset Dates Condition Status SNOMED Code Problem Morbid (severe) obesity due to excess calories E66.01 Active 729404670 Problem Ventricular diastolic dysfunction determined by echocardiography I51.9 Active 597246333 Problem Body mass index (BMI) of 38.0-38.9 in adult Z68.38 Active 585044764 Problem Seasonal allergic rhinitis due to pollen J30.1 Active 25043602 Problem Hepatomegaly R16.0 Active 09776240 Problem Constipation by delayed colonic transit K59.01 Active 97561333 Problem Carpal tunnel syndrome of left wrist G56.02 Active 008971255475285 Problem Sleeps in sitting position due to orthopnea R06.01 Active 457650254582593 Problem Post concussive syndrome F07.81 Active 24264538 Problem Frequent falls R29.6 Active 165519997 Problem Allergic rhinitis J30.9 Active 17257275 Problem Sleep apnea in adult G47.33 Active 04284029 Problem Hypothyroidism, unspecified E03.9 Active 47632947 Problem Hypertension I10 Active 14098649 Problem Hyperlipidemia E78.5 Active 27454594 Problem Mild persistent asthma without complication J45.30 Active 803886569 Problem Morbid obesity E66.01 Active 819443780 Problem Slow transit constipation K59.01 Active 58651256 Problem Atrial fibrillation I48.91 Active 34919015 Problem Fibromyalgia M79.7 Active 884484657 ALLERGIES Substance Reaction Event Type Date Status Simvastatin Pt states that she is allergic to all statins Drug Allergy Oct, Active Penicillin V Potassium vomiting Drug Allergy Oct, Active Coricidin D hyperventilate, anxiety Drug Allergy Oct, Active ENCOUNTERS Encounter Location Date Diagnosis [facility] [address] [facility] [id number] [place] [address] 25515- 1010 Jan, Acute non-recurrent frontal sinusitis J01.10 ; Chest pain on respiration R07.1 ; Dysuria R30.0 ; Hypertension I10 and Seasonal allergic rhinitis due to pollen J30.1 [place] [address] [place] [address] 75883- 7477 Oct, Hypertension I10 ; Atrial fibrillation I48.91 ; Hypothyroidism, unspecified E03.9 ; Fibromyalgia M79.7 ; Mild persistent asthma without complication J45.30 ; Allergic rhinitis J30.9 ; Constipation by delayed colonic transit K59.01 and Hospital discharge follow-up Z09 [place] [address] [place] [id number] [place] [address] 47779- 1643 Oct, [place] [address] [place] [id number] [place] [address] 69044- 8629 Oct, Hospital discharge follow-up Z09 ; Status post fall Z91.81 ; Traumatic black eye of right side, initial encounter S00.11XA ; Traumatic black eye of left side, initial encounter S00.12XA ; Closed fracture of right wrist, initial encounter S62.101A and Post concussive syndrome F07.81 [place] [address] [place] [id number] [place] [address] 90756- 5484 Oct, [place] [address] [place] [id number] [place] [address] 62502- 8283 Aug, Hypertension I10 ; Atrial fibrillation I48.91 ; Hyperlipidemia E78.5 ; Hypothyroidism, unspecified E03.9 ; Mild persistent asthma without complication J45.30 ; Sleep apnea in adult G47.33 ; Fibromyalgia M79.7 ; Ventricular diastolic dysfunction determined by echocardiography I51.9 ; Allergic rhinitis J30.9 ; Morbid (severe) obesity due to excess calories E66.01 and Body mass index (BMI) of 38.0-38.9 in adult Z68.38 [place] [address] [place] [address] 49518- 6980 Jul, Hypertension I10 ; Atrial fibrillation I48.91 ; Mild persistent asthma without complication J45.30 ; Morbid obesity E66.01 ; Hyperlipidemia E78.5 ; Allergic rhinitis J30.9 ; Sleep apnea in adult G47.33 ; Sleeps in sitting position due to orthopnea R06.01 and Carpal tunnel syndrome of left wrist G56.02 [place] [address] [place] [id number] [place] [address] 69449- 1728 11 Jul, 2017 [place] [address] 28728- 4819 Jul, [place] [address] 18742- 7782 Jul, [place] [address] 49873- 7825 14 May, 2017 Hypothyroidism, unspecified E03.9 and Hypertension I10 [place] [address] 74798- 4765 13 May, 2017 Acute bilateral low back pain without sciatica M54.5 ; Dysuria R30.0 and Muscle spasm of back M62.830 [place] [address] [place] [id number] [place] [address] 56197- 6643 06 May, 2017 Hypertension I10 [place] [address] [place] [id number] [place] [address] 01199- 5203 Apr, Hypertension I10 [place] [address] [place] [id number] [place] [address] 54139- 8888 Apr, Hypertension I10 ; Atrial fibrillation I48.91 ; Hyperlipidemia E78.5 and Allergic rhinitis J30.9 [place] [address] [place] [id number] [place] [address] 96635- 2694 Jan, Dysuria R30.0 and Acute cystitis without hematuria N30.00 [place] [address] [place] [id number] [place] [address] 48202- 0324 Jan, Hypothyroidism, unspecified E03.9 and Hypertension I10 [place] [address] 06626- 6062 November, Encounter for well woman exam Z01.419 and Encounter for breast cancer screening other than mammogram Z12.[address] 29546- 1833 Sep, Hypertension I10 ; Atrial fibrillation I48.91 ; Hypothyroidism, unspecified E03.9 ; Morbid obesity E66.01 ; Hyperlipidemia E78.5 ; Mild persistent asthma without complication J45.30 ; Allergic rhinitis J30.9 ; Slow transit constipation K59.01 ; Other viral agents as the cause of diseases classified elsewhere B97.89 ; Acute upper respiratory infection, unspecified J06.9 and H/O fibromyalgia Z87.[address] 36095- 1482 Jul, [address] 51995- 8713 Jun, Routine lab draw Z00.00 ; Hypertension I10 ; Atrial fibrillation I48.91 ; Hypothyroidism, unspecified E03.9 and Morbid obesity E66.01 [place] [address] 92544- 0488 Jun, Hypertension I10 ; Atrial fibrillation I48.91 ; Hypothyroidism, unspecified E03.9 ; Morbid obesity E66.01 ; Hyperlipidemia E78.5 ; Mild persistent asthma without complication J45.30 ; Allergic rhinitis J30.9 and Slow transit constipation K59.[address] 13272- 3226 May, [facility] [address] [address]47 Apr, Bug bite, initial encounter W57.XXXA [address] 08590- 8916 Mar, Chronic atrial fibrillation I48.[address] 32222- 5710 Dec, Hypertension I10 ; H/O fibromyalgia Z87.39 ; Atrial fibrillation I48.91 ; Hypothyroidism, unspecified E03.9 ; Morbid obesity E66.01 ; History of asthma Z87.09 ; Hyperlipidemia E78.5 and Shortness of breath R06.02 [facility] [address] [place] [id number] [place] [address] 29588- 5281 November, [facility] [address] [address] Oct, Candidal dermatitis B37.2 [place] [address] 72741- 7279 Oct, [place] [address] 30895- 2162 Sep, Mild persistent asthma without complication J45.30 ; Dysuria R30.0 ; Leukopenia D72.819 ; Hypertension I10 and Vaginal cayla B37.3 [place] [address] 59261- 5206 Jul, [place] [address] 76923- 9652 Jun, [place] [address] 83377- 7207 Jun, [place] [address] 00447- 3123 Jun, [place] [address] 09078- 3154 May, HTN (hypertension) I10 ; Hypertension I10 ; H/O fibromyalgia Z87.39 ; Atrial fibrillation I48.91 ; Hypothyroidism, unspecified E03.9 ; Morbid obesity E66.01 and Hyperlipidemia E78.5 [place] [address] 30349- 2449 May, [place] [address] 01355- 8006 May, [place] [address] [place] [address]46 11 May, 2015 General medical exam Z00.00 ; Hypertension I10 ; H/O fibromyalgia Z87.39 ; Irregular heart beat I49.9 ; Dysuria R30.0 ; Dietary counseling Z71.3 ; Exercise counseling Z71.89 ; Sleep apnea in adult G47.33 ; Atrial fibrillation I48.91 ; Hypothyroidism, unspecified E03.9 and Morbid obesity E66.01 [place] [address] [address] 10 May, 2015 General medical exam Z00.00 ; Hypertension I10 ; H/O fibromyalgia Z87.39 ; Dysuria R30.0 ; Dietary counseling Z71.3 ; Exercise counseling Z71.89 ; Sleep apnea in adult G47.33 ; Atrial fibrillation I48.91 ; Hypothyroidism, unspecified E03.9 ; Morbid obesity E66.01 ; Allergic rhinitis J30.9 and History of asthma Z87.09 [place] [address] [place] [address] 31108- 9713 05 Nov, 2013 [place] [address] [place] [id number] [place] [address] 87933- 8148 05 Nov, 2013 IMMUNIZATIONS No Known Immunizations SOCIAL HISTORY Never Assessed REASON FOR VISIT H follow up/HTN. Agueda, RN, pt wearing heart monitor starting 11/09, needing info on heart healthy diet. PLAN OF CARE Activity Details Follow Up 3 Months, prn Reason:CHM/HTN VITAL SIGNS Height 67 in 2017-11-11 Weight 240.3 lbs 2017-11-11 Temperature 98.8 degrees Fahrenheit 2017-11-11 Heart Rate 82 bpm 2017-11-11 Respiratory Rate 22 2017-11-11 BMI 37.63 kg/m2 2017-11-11 Blood pressure systolic 126 mmHg 2017-11-11 Blood pressure diastolic 82 mmHg 2017-11-11 MEDICATIONS Medication Instructions Dosage Frequency Start Date End Date Duration Status Advair Diskus 250-50 MCG/DOSE Inhalation Twice a day 1 puff 12h 12 months Active Atorvastatin Calcium 10 mg Orally Once a day TAKE ONE TABLET BY MOUTH ONCE DAILY 24h 90 days Active Hydrocodone-Acetaminophen 5-325 MG Orally every 6 hrs 1 tablet as needed 6h Active Lisinopril 40 mg Orally Once a day 1 tablet 24h Active Eliquis 5 mg Orally 2 times a day 1 tablet 12h Active Oxygen ... 2-3L while sleeping Active MiraLax 17 gm/dose Orally Once a day 1 packet mixed with 8 ounces of fluid 24h Active Metoprolol Succinate ER 25 MG TAKE ONE TABLET BY MOUTH ONCE DAILY Active Diltiazem HCl ER 240 MG Orally Once a day 1 capsule on an empty stomach in the morning 24h Sep, Active Hydrochlorothiazide 25 MG Orally Once a day 1 tablet 24h Active Cetirizine HCl 10 mg Orally Once a day 1 tablet 24h Apr, Jul, 90 days Active Docusate Sodium 100 MG Orally Once a day 1 capsule as needed 24h Not-Taking ProAir HFA 108 (90 Base) MCG/ACT Inhalation every 4 hrs 2 puffs as needed 4h 12 months Active Fish Oil 1000 MG Orally Twice a day 1 capsule 12h Active Levothyroxine Sodium 125 MCG TAKE ONE TABLET BY MOUTH ONCE DAILY Active Flonase 50 MCG/ACT Nasally Once a day 2 spray in each nostril 24h 12 months Active RESULTS No Results PROCEDURES Procedure Date Ordered Result Body Site [facility] VISIT ESTABLISHED PATIENT November 11, 2017 INSTRUCTIONS MEDICATIONS ADMINISTERED No Known Medications [...]
--- OUTSIDE RECORDS SUMMARY | 2018-06-26 03:21 | XMS REPORT ---
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 Role Phone BOY MERCADO Unavailable PROBLEMS Type Condition ICD9-CM Code POX20-JY Code Onset Dates Condition Status SNOMED Code Problem Morbid (severe) obesity due to excess calories E66.01 Active 145532378 Problem Ventricular diastolic dysfunction determined by echocardiography I51.9 Active 578718692 Problem Body mass index (BMI) of 38.0-38.9 in adult Z68.38 Active 033943287 Problem Seasonal allergic rhinitis due to pollen J30.1 Active 41692155 Problem Hepatomegaly R16.0 Active 63544666 Problem Constipation by delayed colonic transit K59.01 Active 77808362 Problem Carpal tunnel syndrome of left wrist G56.02 Active 205650376878292 Problem Sleeps in sitting position due to orthopnea R06.01 Active 550305521607592 Problem Post concussive syndrome F07.81 Active 96911805 Problem Frequent falls R29.6 Active 120571475 Problem Allergic rhinitis J30.9 Active 05732359 Problem Sleep apnea in adult G47.33 Active 89533453 Problem Hypothyroidism, unspecified E03.9 Active 50944874 Problem Hypertension I10 Active 31080651 Problem Hyperlipidemia E78.5 Active 22957826 Problem Mild persistent asthma without complication J45.30 Active 680135354 Problem Morbid obesity E66.01 Active 800368582 Problem Slow transit constipation K59.01 Active 97102298 Problem Atrial fibrillation I48.91 Active 87708845 Problem Fibromyalgia M79.7 Active 812989622 ALLERGIES No Information ENCOUNTERS Encounter Location Date Diagnosis [facility] [address] [facility] [id number] [place] [address] Jan, Acute non-recurrent frontal sinusitis J01.10 ; Chest pain on respiration R07.1 ; Dysuria R30.0 ; Hypertension I10 and Seasonal allergic rhinitis due to pollen J30.1 [place] [address] [place] [address] 32461- 3015 Oct, Hypertension I10 ; Atrial fibrillation I48.91 ; Hypothyroidism, unspecified E03.9 ; Fibromyalgia M79.7 ; Mild persistent asthma without complication J45.30 ; Allergic rhinitis J30.9 ; Constipation by delayed colonic transit K59.01 and Hospital discharge follow-up Z09 [place] [address] [place] [id number] [place] [address] 17004- 3804 Oct, [place] [address] [place] [id number] [place] [address] 26880- 3651 Oct, Hospital discharge follow-up Z09 ; Status post fall Z91.81 ; Traumatic black eye of right side, initial encounter S00.11XA ; Traumatic black eye of left side, initial encounter S00.12XA ; Closed fracture of right wrist, initial encounter S62.101A and Post concussive syndrome F07.81 [place] [address] [place] [id number] [place] [address] 50976- 6386 Oct, [place] [id number] [place] [address] 74108- 4893 Aug, Hypertension I10 ; Atrial fibrillation I48.91 ; Hyperlipidemia E78.5 ; Hypothyroidism, unspecified E03.9 ; Mild persistent asthma without complication J45.30 ; Sleep apnea in adult G47.33 ; Fibromyalgia M79.7 ; Ventricular diastolic dysfunction determined by echocardiography I51.9 ; Allergic rhinitis J30.9 ; Morbid (severe) obesity due to excess calories E66.01 and Body mass index (BMI) of 38.0-38.9 in adult Z68.38 [place] [id number] [place] [address] 47661- 7558 Jul, Hypertension I10 ; Atrial fibrillation I48.91 ; Mild persistent asthma without complication J45.30 ; Morbid obesity E66.01 ; Hyperlipidemia E78.5 ; Allergic rhinitis J30.9 ; Sleep apnea in adult G47.33 ; Sleeps in sitting position due to orthopnea R06.01 and Carpal tunnel syndrome of left wrist G56.02 [place] [address] [place] [address] 93888- 8167 Jul, [facility] [address] [place] [id number] [place] [address] 42385- 9745 Jul, [place] [address] [place] [id number] [place] [address] 97181- 2072 Jul, [place] [address] [place] [id number] [place] [address] 04025- 4129 14 May, 2017 Hypothyroidism, unspecified E03.9 and Hypertension I10 [place] [address] [place] [id number] [place] [address] 79420- 4468 13 May, 2017 Acute bilateral low back pain without sciatica M54.5 ; Dysuria R30.0 and Muscle spasm of back M62.830 [place] [address] [place] [id number] [place] [address] 22141- 3612 May, Hypertension I10 [place] [address] [place] [id number] [place] [address] 56788- 2379 Apr, Hypertension I10 [place] [address] [place] [id number] [place] [address] 06841- 7929 Apr, Hypertension I10 ; Atrial fibrillation I48.91 ; Hyperlipidemia E78.5 and Allergic rhinitis J30.9 [place] [address] [place] [id number] [place] [address] 92670- 7615 Jan, Dysuria R30.0 and Acute cystitis without hematuria N30.00 [place] [address] [place] [id number] [place] [address] 29049- 8979 Jan, Hypothyroidism, unspecified E03.9 and Hypertension I10 [place] [address] [place] [id number] [place] [address] 10692- 2141 November, Encounter for well woman exam Z01.419 and Encounter for breast cancer screening other than mammogram Z12.39 [place] [address] [place] [id number] [place] [address] 64194- 5780 Sep, Hypertension I10 ; Atrial fibrillation I48.91 ; Hypothyroidism, unspecified E03.9 ; Morbid obesity E66.01 ; Hyperlipidemia E78.5 ; Mild persistent asthma without complication J45.30 ; Allergic rhinitis J30.9 ; Slow transit constipation K59.01 ; Other viral agents as the cause of diseases classified elsewhere B97.89 ; Acute upper respiratory infection, unspecified J06.9 and H/O fibromyalgia Z87.[address] 56391- 9958 Jul, [address] 29422- 1880 Jun, Routine lab draw Z00.00 ; Hypertension I10 ; Atrial fibrillation I48.91 ; Hypothyroidism, unspecified E03.9 and Morbid obesity E66.[address] 37895- 7719 Jun, Hypertension I10 ; Atrial fibrillation I48.91 ; Hypothyroidism, unspecified E03.9 ; Morbid obesity E66.01 ; Hyperlipidemia E78.5 ; Mild persistent asthma without complication J45.30 ; Allergic rhinitis J30.9 and Slow transit constipation K59.[address] 82809- 7919 May, [facility]ALK IN [facility] [address] [place] [address] 32552 -7248 Apr, Bug bite, initial encounter W57.XXXA [address] 49069- 6867 Mar, Chronic atrial fibrillation I48.[address] 97344- 7434 Dec, Hypertension I10 ; H/O fibromyalgia Z87.39 ; Atrial fibrillation I48.91 ; Hypothyroidism, unspecified E03.9 ; Morbid obesity E66.01 ; History of asthma Z87.09 ; Hyperlipidemia E78.5 and Shortness of breath R06.02 [place] [address] [place] [id number] [place] [address] 85420- 6077 November, [facility]ALK [facility] [address] [place] [id number] [place] [address] 00516 -8263 Oct, Candidal dermatitis B37.2 [facility] [address] [place] [id number] [place] [address] 08891- 4374 Oct, [facility] [address] 62822- 5161 Sep, Mild persistent asthma without complication J45.30 ; Dysuria R30.0 ; Leukopenia D72.819 ; Hypertension I10 and Vaginal cayla B37.3 [place] [address] [place] [id number] [place] [address] 93103- 4337 Jul, [facility] [address] [place] [id number] [place] [address] 23992- 6192 Jun, [facility] [address] [place] [id number] [place] [address] 72384- 4196 Jun, [place] [address] [place] [id number] [place] [address] 72250- 4282 Jun, [place] [address] [place] [id number] [place] [address] 62932- 8739 May, HTN (hypertension) I10 ; Hypertension I10 ; H/O fibromyalgia Z87.39 ; Atrial fibrillation I48.91 ; Hypothyroidism, unspecified E03.9 ; Morbid obesity E66.01 and Hyperlipidemia E78.5 [facility] [address] [place] [id number] [place] [address] 20404- 6294 May, [place] [address] [address]- 0798 May, [place] [address] [place] [id number] [place] [address] 51961- 0351 May, General medical exam Z00.00 ; Hypertension I10 ; H/O fibromyalgia Z87.39 ; Irregular heart beat I49.9 ; Dysuria R30.0 ; Dietary counseling Z71.3 ; Exercise counseling Z71.89 ; Sleep apnea in adult G47.33 ; Atrial fibrillation I48.91 ; Hypothyroidism, unspecified E03.9 and Morbid obesity E66.01 [place] [address] [address] 10 May, 2015 General medical exam Z00.00 ; Hypertension I10 ; H/O fibromyalgia Z87.39 ; Dysuria R30.0 ; Dietary counseling Z71.3 ; Exercise counseling Z71.89 ; Sleep apnea in adult G47.33 ; Atrial fibrillation I48.91 ; Hypothyroidism, unspecified E03.9 ; Morbid obesity E66.01 ; Allergic rhinitis J30.9 and History of asthma Z87.09 [place] [address] [place] [address] 79645- 1893 November, [place] [address] [place] [id number] [place] [address] 04173- 7841 November, IMMUNIZATIONS No Known Immunizations SOCIAL HISTORY Never Assessed REASON FOR VISIT Requests return call PLAN OF CARE VITAL SIGNS MEDICATIONS No [...]
--- OUTSIDE RECORDS SUMMARY | 2018-06-26 03:21 | XMS REPORT ---
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 Role Phone BOY MERCADO Unavailable PROBLEMS Type Condition ICD9-CM Code HIF05-YT Code Onset Dates Condition Status SNOMED Code Problem Morbid (severe) obesity due to excess calories E66.01 Active 776010167 Problem Ventricular diastolic dysfunction determined by echocardiography I51.9 Active 014821920 Problem Body mass index (BMI) of 38.0-38.9 in adult Z68.38 Active 867799427 Problem Seasonal allergic rhinitis due to pollen J30.1 Active 67332337 Problem Hepatomegaly R16.0 Active 67597947 Problem Constipation by delayed colonic transit K59.01 Active 04242284 Problem Carpal tunnel syndrome of left wrist G56.02 Active 907617822700360 Problem Sleeps in sitting position due to orthopnea R06.01 Active 267681344555403 Problem Post concussive syndrome F07.81 Active 13568134 Problem Frequent falls R29.6 Active 086566401 Problem Allergic rhinitis J30.9 Active 15760913 Problem Sleep apnea in adult G47.33 Active 00283013 Problem Hypothyroidism, unspecified E03.9 Active 05475566 Problem Hypertension I10 Active 11477955 Problem Hyperlipidemia E78.5 Active 14373140 Problem Mild persistent asthma without complication J45.30 Active 524296559 Problem Morbid obesity E66.01 Active 403395861 Problem Slow transit constipation K59.01 Active 64331117 Problem Atrial fibrillation I48.91 Active 17306187 Problem Fibromyalgia M79.7 Active 792231631 ALLERGIES No Information ENCOUNTERS Encounter Location Date Diagnosis [facility] [address] [facility] [id number] [place] [address] Jan, Acute non-recurrent frontal sinusitis J01.10 ; Chest pain on respiration R07.1 ; Dysuria R30.0 ; Hypertension I10 and Seasonal allergic rhinitis due to pollen J30.1 [place] [address] [place] [address] 03601- 3139 Oct, Hypertension I10 ; Atrial fibrillation I48.91 ; Hypothyroidism, unspecified E03.9 ; Fibromyalgia M79.7 ; Mild persistent asthma without complication J45.30 ; Allergic rhinitis J30.9 ; Constipation by delayed colonic transit K59.01 and Hospital discharge follow-up Z09 [place] [address] [place] [id number] [place] [address] 28969- 8604 Oct, [place] [address] [place] [id number] [place] [address] 93452- 9751 Oct, Hospital discharge follow-up Z09 ; Status post fall Z91.81 ; Traumatic black eye of right side, initial encounter S00.11XA ; Traumatic black eye of left side, initial encounter S00.12XA ; Closed fracture of right wrist, initial encounter S62.101A and Post concussive syndrome F07.81 [place] [address] [place] [id number] [place] [address] 80017- 4355 Oct, [place] [id number] [place] [address] 97003- 0242 Aug, Hypertension I10 ; Atrial fibrillation I48.91 ; Hyperlipidemia E78.5 ; Hypothyroidism, unspecified E03.9 ; Mild persistent asthma without complication J45.30 ; Sleep apnea in adult G47.33 ; Fibromyalgia M79.7 ; Ventricular diastolic dysfunction determined by echocardiography I51.9 ; Allergic rhinitis J30.9 ; Morbid (severe) obesity due to excess calories E66.01 and Body mass index (BMI) of 38.0-38.9 in adult Z68.38 [place] [id number] [place] [address] 59620- 8728 Jul, Hypertension I10 ; Atrial fibrillation I48.91 ; Mild persistent asthma without complication J45.30 ; Morbid obesity E66.01 ; Hyperlipidemia E78.5 ; Allergic rhinitis J30.9 ; Sleep apnea in adult G47.33 ; Sleeps in sitting position due to orthopnea R06.01 and Carpal tunnel syndrome of left wrist G56.02 [place] [address] [place] [address] 28552- 7610 Jul, [facility] [address] [place] [id number] [place] [address] 72365- 9361 Jul, [place] [address] [place] [id number] [place] [address] 59409- 9583 Jul, [place] [address] [place] [id number] [place] [address] 60133- 8244 14 May, 2017 Hypothyroidism, unspecified E03.9 and Hypertension I10 [place] [address] [place] [id number] [place] [address] 54600- 1744 13 May, 2017 Acute bilateral low back pain without sciatica M54.5 ; Dysuria R30.0 and Muscle spasm of back M62.830 [place] [address] [place] [id number] [place] [address] 87317- 6765 May, Hypertension I10 [place] [address] [place] [id number] [place] [address] 98230- 7587 Apr, Hypertension I10 [place] [address] [place] [id number] [place] [address] 82381- 2381 Apr, Hypertension I10 ; Atrial fibrillation I48.91 ; Hyperlipidemia E78.5 and Allergic rhinitis J30.9 [place] [address] [place] [id number] [place] [address] 17509- 2348 Jan, Dysuria R30.0 and Acute cystitis without hematuria N30.00 [place] [address] [place] [id number] [place] [address] 31226- 7264 Jan, Hypothyroidism, unspecified E03.9 and Hypertension I10 [place] [address] [place] [id number] [place] [address] 12369- 8883 November, Encounter for well woman exam Z01.419 and Encounter for breast cancer screening other than mammogram Z12.39 [place] [address] [place] [id number] [place] [address] 69776- 7456 Sep, Hypertension I10 ; Atrial fibrillation I48.91 ; Hypothyroidism, unspecified E03.9 ; Morbid obesity E66.01 ; Hyperlipidemia E78.5 ; Mild persistent asthma without complication J45.30 ; Allergic rhinitis J30.9 ; Slow transit constipation K59.01 ; Other viral agents as the cause of diseases classified elsewhere B97.89 ; Acute upper respiratory infection, unspecified J06.9 and H/O fibromyalgia Z87.[address] 09329- 6975 Jul, [address] 47491- 8452 Jun, Routine lab draw Z00.00 ; Hypertension I10 ; Atrial fibrillation I48.91 ; Hypothyroidism, unspecified E03.9 and Morbid obesity E66.[address] 33574- 3307 Jun, Hypertension I10 ; Atrial fibrillation I48.91 ; Hypothyroidism, unspecified E03.9 ; Morbid obesity E66.01 ; Hyperlipidemia E78.5 ; Mild persistent asthma without complication J45.30 ; Allergic rhinitis J30.9 and Slow transit constipation K59.[address] 31809- 7656 May, [facility] WALK IN [facility] [address] [place] [address] 88959 -7881 Apr, Bug bite, initial encounter W57.XXXA [address] 60015- 8766 Mar, Chronic atrial fibrillation I48.[address] 39138- 4948 Dec, Hypertension I10 ; H/O fibromyalgia Z87.39 ; Atrial fibrillation I48.91 ; Hypothyroidism, unspecified E03.9 ; Morbid obesity E66.01 ; History of asthma Z87.09 ; Hyperlipidemia E78.5 and Shortness of breath R06.02 [place] [address] [place] [id number] [place] [address] 33318- 1938 November, [facility]ALK [facility] [address] [place] [id number] [place] [address] 45525 -9882 Oct, Candidal dermatitis B37.2 [facility] [address] [place] [id number] [place] [address] 93107- 4856 Oct, [facility] [address] 65204- 8641 Sep, Mild persistent asthma without complication J45.30 ; Dysuria R30.0 ; Leukopenia D72.819 ; Hypertension I10 and Vaginal cayla B37.3 [place] [address] [place] [id number] [place] [address] 41329- 4909 Jul, [facility] [address] [place] [id number] [place] [address] 51603- 7069 Jun, [facility] [address] [place] [id number] [place] [address] 41529- 9150 Jun, [place] [address] [place] [id number] [place] [address] 19952- 3253 Jun, [place] [address] [place] [id number] [place] [address] 93350- 7627 May, HTN (hypertension) I10 ; Hypertension I10 ; H/O fibromyalgia Z87.39 ; Atrial fibrillation I48.91 ; Hypothyroidism, unspecified E03.9 ; Morbid obesity E66.01 and Hyperlipidemia E78.5 [facility] [address] [place] [id number] [place] [address] 82347- 5123 May, [place] [address] 61277- 3965 May, [place] [address] [place] [id number] [place] [address] 40456- 7383 May, General medical exam Z00.00 ; Hypertension I10 ; H/O fibromyalgia Z87.39 ; Irregular heart beat I49.9 ; Dysuria R30.0 ; Dietary counseling Z71.3 ; Exercise counseling Z71.89 ; Sleep apnea in adult G47.33 ; Atrial fibrillation I48.91 ; Hypothyroidism, unspecified E03.9 and Morbid obesity E66.01 [place] [address] [address] 10 May, 2015 General medical exam Z00.00 ; Hypertension I10 ; H/O fibromyalgia Z87.39 ; Dysuria R30.0 ; Dietary counseling Z71.3 ; Exercise counseling Z71.89 ; Sleep apnea in adult G47.33 ; Atrial fibrillation I48.91 ; Hypothyroidism, unspecified E03.9 ; Morbid obesity E66.01 ; Allergic rhinitis J30.9 and History of asthma Z87.09 [place] [address] [place] [address] 46564- 9838 November, [place] [address] [place] [id number] [place] [address] 46018- 6580 November, IMMUNIZATIONS No Known Immunizations SOCIAL HISTORY [...]
--- OUTSIDE RECORDS SUMMARY | 2018-06-26 03:22 | XMS REPORT ---
Author Author BOY MERCADO Organization [facility] [place] Address [address] [place] [address] Care Team Providers Care Erp Business Analyst Name Role Phone BOY MERCADO Unavailable PROBLEMS Type Condition ICD9-CM Code TJX02-QA Code Onset Dates Condition Status SNOMED Code Problem Fibromyalgia M79.7 Active 137370150 Problem Body mass index (BMI) of 38.0-38.9 in adult Z68.38 Active 224957150 Problem Morbid (severe) obesity due to excess calories E66.01 Active 813760319 Problem Constipation by delayed colonic transit K59.01 Active 36466495 Problem Post concussive syndrome F07.81 Active 12638652 Problem Sleeps in sitting position due to orthopnea R06.01 Active 503785286561343 Problem Ventricular diastolic dysfunction determined by echocardiography I51.9 Active 962483187 Problem Frequent falls R29.6 Active 932327814 Problem Carpal tunnel syndrome of left wrist G56.02 Active 632635725086856 Problem Hypertension I10 Active 75494478 Problem Allergic rhinitis J30.9 Active 35039444 Problem Hepatomegaly R16.0 Active 58694636 Problem Hypothyroidism, unspecified E03.9 Active 11376060 Problem Atrial fibrillation I48.91 Active 82444008 Problem Hyperlipidemia E78.5 Active 41229962 Problem Sleep apnea in adult G47.33 Active 41446018 Problem Mild persistent asthma without complication J45.30 Active 598675377 Problem Morbid obesity E66.01 Active 592158371 Problem Slow transit constipation K59.01 Active 74236611 ALLERGIES No Information ENCOUNTERS Encounter Location Date Diagnosis [facility] [place] [address] [facility] [id number], [place] [address] Jan, [facility] [place] [address] [facility] [id number], [place] [address] Oct, Hypertension I10 ; Atrial fibrillation I48.91 ; Hypothyroidism, unspecified E03.9 ; Fibromyalgia M79.7 ; Mild persistent asthma without complication J45.30 ; Allergic rhinitis J30.9 ; Constipation by delayed colonic transit K59.01 and Hospital discharge follow-up Z09 [place] [address] [address] Oct, [place] [address] [place] [id number] [place] [address] 47[address] 09 Oct, 2017 Hospital discharge follow-up Z09 ; Status post fall Z91.81 ; Traumatic black eye of right side, initial encounter S00.11XA ; Traumatic black eye of left side, initial encounter S00.12XA ; Closed fracture of right wrist, initial encounter S62.101A and Post concussive syndrome F07.81 [place] [address] [place] [id number] [place] [address] 38656- 1472 Oct, [place] [address] [place] [id number] [place] [address] 18148- 6571 12 Aug, 2017 Hypertension I10 ; Atrial fibrillation I48.91 ; Hyperlipidemia E78.5 ; Hypothyroidism, unspecified E03.9 ; Mild persistent asthma without complication J45.30 ; Sleep apnea in adult G47.33 ; Fibromyalgia M79.7 ; Ventricular diastolic dysfunction determined by echocardiography I51.9 ; Allergic rhinitis J30.9 ; Morbid (severe) obesity due to excess calories E66.01 and Body mass index (BMI) of 38.0-38.9 in adult Z68.[address] [place] [address] 28583- 4814 Jul, Hypertension I10 ; Atrial fibrillation I48.91 ; Mild persistent asthma without complication J45.30 ; Morbid obesity E66.01 ; Hyperlipidemia E78.5 ; Allergic rhinitis J30.9 ; Sleep apnea in adult G47.33 ; Sleeps in sitting position due to orthopnea R06.01 and Carpal tunnel syndrome of left wrist G56.02 [place] [address], [place] [address] Jul, [place] [address] [place] [id number] [place] [address] 42628- 0086 Jul, [place] [address] [place] [id number] [place] [address] 93868- 4420 Jul, [place] [address] [place] [id number] [place] [address] 25239- 9331 14 May, 2017 Hypothyroidism, unspecified E03.9 and Hypertension I10 [place] [address] [address]- [address] May, Acute bilateral low back pain without sciatica M54.5 ; Dysuria R30.0 and Muscle spasm of back M62.830 [place] [address] [place] [id number] [place] [address] 23673- 6342 May, Hypertension I10 [place] [id number] [place] [address] 45651- 8816 Apr, Hypertension I10 [place] [address] [place] [id number] [place] [address] 71805- 6486 Apr, Hypertension I10 ; Atrial fibrillation I48.91 ; Hyperlipidemia E78.5 and Allergic rhinitis J30.9 [place] [id number] [place] [address] 44968- 3922 Jan, Dysuria R30.0 and Acute cystitis without hematuria N30.00 [place] [id number] [place] [address] 73898- 4895 Jan, Hypothyroidism, unspecified E03.9 and Hypertension I10 [place] [address] [place] [id number] [place] [address] 03023- 7589 November, Encounter for well woman exam Z01.419 and Encounter for breast cancer screening other than mammogram Z12.39 [place] [id number] [place] [address] 51986- 7568 Sep, Hypertension I10 ; Atrial fibrillation I48.91 ; Hypothyroidism, unspecified E03.9 ; Morbid obesity E66.01 ; Hyperlipidemia E78.5 ; Mild persistent asthma without complication J45.30 ; Allergic rhinitis J30.9 ; Slow transit constipation K59.01 ; Other viral agents as the cause of diseases classified elsewhere B97.89 ; Acute upper respiratory infection, unspecified J06.9 and H/O fibromyalgia Z87.[address] [address]- [address] Jul, [address] 8[address]12- [address] Jun, Routine lab draw Z00.00 ; Hypertension I10 ; Atrial fibrillation I48.91 ; Hypothyroidism, unspecified E03.9 and Morbid obesity E66.[address] [address]- [address]757 Jun, Hypertension I10 ; Atrial fibrillation I48.91 ; Hypothyroidism, unspecified E03.9 ; Morbid obesity E66.01 ; Hyperlipidemia E78.5 ; Mild persistent asthma without complication J45.30 ; Allergic rhinitis J30.9 and Slow transit constipation K59.[address] 01620- 6803 May, [facility] [address] [address] Apr, Bug bite, initial encounter W57.XXXA [address] 47958- 6609 Mar, Chronic atrial fibrillation I48.[address] 80052- 6935 Dec, Hypertension I10 ; H/O fibromyalgia Z87.39 ; Atrial fibrillation I48.91 ; Hypothyroidism, unspecified E03.9 ; Morbid obesity E66.01 ; History of asthma Z87.09 ; Hyperlipidemia E78.5 and Shortness of breath R06.[address] 42416- [address] November, [facility] [address] [address] Oct, Candidal dermatitis B37.2 [place] [address] [place] [id number] [place] [address] 24950- 3863 Oct, [place] [address] [place] [id number] [place] [address] 61608- 3497 Sep, Mild persistent asthma without complication J45.30 ; Dysuria R30.0 ; Leukopenia D72.819 ; Hypertension I10 and Vaginal cayla B37.3 [place] [address] [place] [id number] [place] [address] 39522- 0520 Jul, [place] [address] [place] [id number] [place] [address] 43690- 5086 Jun, [place] [address] [place] [id number] [place] [address] 11511- 6215 Jun, [place] [address] [place] [id number] [place] [address] 53856- 8526 Jun, [place] [address] [place] [id number] [place] [address] 02179- 9245 May, HTN (hypertension) I10 ; Hypertension I10 ; H/O fibromyalgia Z87.39 ; Atrial fibrillation I48.91 ; Hypothyroidism, unspecified E03.9 ; Morbid obesity E66.01 and Hyperlipidemia E78.5 [place] [address] [place] [id number] [place] [address] 31312- 9920 May, [place] [address] [place] [id number] [place] [address] 90685- 2971 May, [place] [address] [place] [id number] [place] [address] 32993- 2824 May, General medical exam Z00.00 ; Hypertension I10 ; H/O fibromyalgia Z87.39 ; Irregular heart beat I49.9 ; Dysuria R30.0 ; Dietary counseling Z71.3 ; Exercise counseling Z71.89 ; Sleep apnea in adult G47.33 ; Atrial fibrillation I48.91 ; Hypothyroidism, unspecified E03.9 and Morbid obesity E66.01 [place] [address] [facility] [id number], [place] [address] 10 May, 2015 General medical exam Z00.00 ; Hypertension I10 ; H/O fibromyalgia Z87.39 ; Dysuria R30.0 ; Dietary counseling Z71.3 ; Exercise counseling Z71.89 ; Sleep apnea in adult G47.33 ; Atrial fibrillation I48.91 ; Hypothyroidism, unspecified E03.9 ; Morbid obesity E66.01 ; Allergic rhinitis J30.9 and History of asthma Z87.09 [place] [address] [id number] [address] November, [place] [address] [id number] [address] November, IMMUNIZATIONS No Known Immunizations SOCIAL HISTORY Never Assessed REASON FOR VISIT PLAN OF CARE VITAL SIGNS MEDICATIONS Unknown Medications RESULTS No Results PROCEDURES No Known [...]
--- OUTSIDE RECORDS SUMMARY | 2018-06-26 03:22 | XMS REPORT ---
Author Author BOY MERCADO Organization [facility] Address [address] [place] [address] Care Team Providers Care Cd Reactor Operator Name Role Phone BOY MERCADO Unavailable PROBLEMS Type Condition ICD9-CM Code LXF32-BS Code Onset Dates Condition Status SNOMED Code Problem Fibromyalgia M79.7 Active 073746254 Problem Body mass index (BMI) of 38.0-38.9 in adult Z68.38 Active 923277597 Problem Morbid (severe) obesity due to excess calories E66.01 Active 864145942 Problem Constipation by delayed colonic transit K59.01 Active 05220705 Problem Post concussive syndrome F07.81 Active 78700835 Problem Sleeps in sitting position due to orthopnea R06.01 Active 644440209870976 Problem Ventricular diastolic dysfunction determined by echocardiography I51.9 Active 913019270 Problem Frequent falls R29.6 Active 773579241 Problem Carpal tunnel syndrome of left wrist G56.02 Active 842045486002041 Problem Hypertension I10 Active 64860695 Problem Allergic rhinitis J30.9 Active 44038550 Problem Hepatomegaly R16.0 Active 14891668 Problem Hypothyroidism, unspecified E03.9 Active 02857913 Problem Atrial fibrillation I48.91 Active 62952627 Problem Hyperlipidemia E78.5 Active 03329695 Problem Sleep apnea in adult G47.33 Active 52472697 Problem Mild persistent asthma without complication J45.30 Active 116324030 Problem Morbid obesity E66.01 Active 653147815 Problem Slow transit constipation K59.01 Active 79967282 ALLERGIES No Information ENCOUNTERS Encounter Location Date Diagnosis [facility] [address] [facility] [id number] [address] Oct, Hypertension I10 ; Atrial fibrillation I48.91 ; Hypothyroidism, unspecified E03.9 ; Fibromyalgia M79.7 ; Mild persistent asthma without complication J45.30 ; Allergic rhinitis J30.9 ; Constipation by delayed colonic transit K59.01 and Hospital discharge follow-up Z09 [place] [address] [address]- [address] Oct, [place] [address] [place] [id number] [place] [address] 21271- 2044 Oct, Hospital discharge follow-up Z09 ; Status post fall Z91.81 ; Traumatic black eye of right side, initial encounter S00.11XA ; Traumatic black eye of left side, initial encounter S00.12XA ; Closed fracture of right wrist, initial encounter S62.101A and Post concussive syndrome F07.81 [place] [id number] [place] [address] 06144- 6287 Oct, [place] [address] [place] [address] [place] [address] 70182- 7428 12 Aug, 2017 Hypertension I10 ; Atrial fibrillation I48.91 ; Hyperlipidemia E78.5 ; Hypothyroidism, unspecified E03.9 ; Mild persistent asthma without complication J45.30 ; Sleep apnea in adult G47.33 ; Fibromyalgia M79.7 ; Ventricular diastolic dysfunction determined by echocardiography I51.9 ; Allergic rhinitis J30.9 ; Morbid (severe) obesity due to excess calories E66.01 and Body mass index (BMI) of 38.0-38.9 in adult Z68.38 [address] [place] [address] 10880- 7455 Jul, Hypertension I10 ; Atrial fibrillation I48.91 ; Mild persistent asthma without complication J45.30 ; Morbid obesity E66.01 ; Hyperlipidemia E78.5 ; Allergic rhinitis J30.9 ; Sleep apnea in adult G47.33 ; Sleeps in sitting position due to orthopnea R06.01 and Carpal tunnel syndrome of left wrist G56.02 [place] [address] [place] [id number] [place] [address] 93685- 8549 Jul, [place] [address] [place] [id number] [place] [address] 65000- 5689 Jul, [place] [address] [place] [id number] [place] [address] 67871- 2352 Jul, [place] [address] [place] [address] 01170- 3383 14 May, 2017 Hypothyroidism, unspecified E03.9 and Hypertension I10 [place] [address] [place] [id number] [place] [address] 70024- 0699 13 May, 2017 Acute bilateral low back pain without sciatica M54.5 ; Dysuria R30.0 and Muscle spasm of back M62.830 [place] [address] [place] [address] [place] [address] 13067- 9000 06 May, 2017 Hypertension I10 [place] [id number] [place], [place] [address] Apr, Hypertension I10 [place] [address] [place] [address] [place] [address] 46042- 5751 Apr, Hypertension I10 ; Atrial fibrillation I48.91 ; Hyperlipidemia E78.5 and Allergic rhinitis J30.9 [place] [address] [place] [address] [place] [address] 40528- 4369 Jan, Dysuria R30.0 and Acute cystitis without hematuria N30.00 [place] [address] [place] [address] [place] [address] 99716- 0857 Jan, Hypothyroidism, unspecified E03.9 and Hypertension I10 [place] [id number] [place] [address] 16294- 0062 November, Encounter for well woman exam Z01.419 and Encounter for breast cancer screening other than mammogram Z12.[address] [place] [address] 05946- 0915 Sep, Hypertension I10 ; Atrial fibrillation I48.91 ; Hypothyroidism, unspecified E03.9 ; Morbid obesity E66.01 ; Hyperlipidemia E78.5 ; Mild persistent asthma without complication J45.30 ; Allergic rhinitis J30.9 ; Slow transit constipation K59.01 ; Other viral agents as the cause of diseases classified elsewhere B97.89 ; Acute upper respiratory infection, unspecified J06.9 and H/O fibromyalgia Z87.[address] [address]- [address] Jul, [place] [address] 312[address]- 98[address] Jun, Routine lab draw Z00.00 ; Hypertension I10 ; Atrial fibrillation I48.91 ; Hypothyroidism, unspecified E03.9 and Morbid obesity E66.01 [place] [address] 14514- 2196 Jun, Hypertension I10 ; Atrial fibrillation I48.91 ; Hypothyroidism, unspecified E03.9 ; Morbid obesity E66.01 ; Hyperlipidemia E78.5 ; Mild persistent asthma without complication J45.30 ; Allergic rhinitis J30.9 and Slow transit constipation K59.[address] 5[address]- 4429 May, [facility] [address] [address] Apr, Bug bite, initial encounter W57.XXXA [address] 75063- 4941 Mar, Chronic atrial fibrillation I48.[address] 79624- 6915 Dec, Hypertension I10 ; H/O fibromyalgia Z87.39 ; Atrial fibrillation I48.91 ; Hypothyroidism, unspecified E03.9 ; Morbid obesity E66.01 ; History of asthma Z87.09 ; Hyperlipidemia E78.5 and Shortness of breath R06.[address] 84768- 9281 November, [facility] [address] [address] -2210 Oct, Candidal dermatitis B37.[address] 40582- 1661 Oct, [facility] [address] [place] [id number] [place] [address] 58618- 8992 Sep, Mild persistent asthma without complication J45.30 ; Dysuria R30.0 ; Leukopenia D72.819 ; Hypertension I10 and Vaginal cayla B37.3 [place] [address] [place] [address] [place] [address] 03011- 4236 Jul, [place] [address] 01054- 5953 Jun, [place] [address] [place] [id number] [place] [address] 24782- 9152 Jun, [place] [address] [place] [address] [place] [address] 90138- 1477 Jun, [place] [address] [place] [id number] [place] [address] 61961- 9822 May, HTN (hypertension) I10 ; Hypertension I10 ; H/O fibromyalgia Z87.39 ; Atrial fibrillation I48.91 ; Hypothyroidism, unspecified E03.9 ; Morbid obesity E66.01 and Hyperlipidemia E78.5 [place] [address] [place] [address] [place] [address] 57295- 6619 May, [place] [address] [place] [id number] [place] [address] 10522- 3009 May, [place] [address] [place] [id number] [place] [address] 98971- 0187 May, General medical exam Z00.00 ; Hypertension I10 ; H/O fibromyalgia Z87.39 ; Irregular heart beat I49.9 ; Dysuria R30.0 ; Dietary counseling Z71.3 ; Exercise counseling Z71.89 ; Sleep apnea in adult G47.33 ; Atrial fibrillation I48.91 ; Hypothyroidism, unspecified E03.9 and Morbid obesity E66.01 [place] [address] [place] [address] [place] [address] 12956- 9251 May, General medical exam Z00.00 ; Hypertension I10 ; H/O fibromyalgia Z87.39 ; Dysuria R30.0 ; Dietary counseling Z71.3 ; Exercise counseling Z71.89 ; Sleep apnea in adult G47.33 ; Atrial fibrillation I48.91 ; Hypothyroidism, unspecified E03.9 ; Morbid obesity E66.01 ; Allergic rhinitis J30.9 and History of asthma Z87.09 [facility] [address] [facility] [id number] [address]- [address] November, [facility] [address] [facility] [id number] [place] [address]- 4726 November, IMMUNIZATIONS No Known Immunizations SOCIAL HISTORY Never Assessed REASON FOR VISIT resend meds PLAN OF CARE VITAL SIGNS MEDICATIONS Medication Instructions Dosage Frequency Start Date End Date Duration Status Hydrochlorothiazide 25 MG Orally Once a day 1 tablet 24h 30 Active Lisinopril 20 mg Orally Once a day 1/2 tablet 24h Jun, 90 days Active RESULTS No Results PROCEDURES [...]
--- OUTSIDE RECORDS SUMMARY | 2018-06-26 03:22 | XMS REPORT ---
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 Role Phone BOY MERCADO Unavailable PROBLEMS Type Condition ICD9-CM Code [id number] Code Onset Dates Condition Status SNOMED Code Problem Fibromyalgia M79.7 Active 908727212 Problem Body mass index (BMI) of 38.0-38.9 in adult Z68.38 Active 816149363 Problem Morbid (severe) obesity due to excess calories E66.01 Active 635863783 Problem Constipation by delayed colonic transit K59.01 Active 98967306 Problem Post concussive syndrome F07.81 Active 27054243 Problem Sleeps in sitting position due to orthopnea R06.01 Active 620447289822408 Problem Ventricular diastolic dysfunction determined by echocardiography I51.9 Active 053058373 Problem Frequent falls R29.6 Active 987065267 Problem Carpal tunnel syndrome of left wrist G56.02 Active 804369491400479 Problem Hypertension I10 Active 20580851 Problem Allergic rhinitis J30.9 Active 11729035 Problem Hepatomegaly R16.0 Active 32814723 Problem Hypothyroidism, unspecified E03.9 Active 02003059 Problem Atrial fibrillation I48.91 Active 86040952 Problem Hyperlipidemia E78.5 Active 60259276 Problem Sleep apnea in adult G47.33 Active 14338724 Problem Mild persistent asthma without complication J45.30 Active 502303611 Problem Morbid obesity E66.01 Active 638645252 Problem Slow transit constipation K59.01 Active 57149727 ALLERGIES No Information ENCOUNTERS Encounter Location Date Diagnosis [facility] [address] [facility] [id number] [address] Oct, Hypertension I10 ; Atrial fibrillation I48.91 ; Hypothyroidism, unspecified E03.9 ; Fibromyalgia M79.7 ; Mild persistent asthma without complication J45.30 ; Allergic rhinitis J30.9 ; Constipation by delayed colonic transit K59.01 and Hospital discharge follow-up Z09 [place] [address] [address] Oct, [place] [address] [place] [id number] [place] [address] 9559 Oct, Hospital discharge follow-up Z09 ; Status post fall Z91.81 ; Traumatic black eye of right side, initial encounter S00.11XA ; Traumatic black eye of left side, initial encounter S00.12XA ; Closed fracture of right wrist, initial encounter S62.101A and Post concussive syndrome F07.81 [place] [id number] [place] [address]2365[address]164 Oct, [place] [address] [place] [id number] [place] [address] 86008- 0063 12 Aug, 2017 Hypertension I10 ; Atrial fibrillation I48.91 ; Hyperlipidemia E78.5 ; Hypothyroidism, unspecified E03.9 ; Mild persistent asthma without complication J45.30 ; Sleep apnea in adult G47.33 ; Fibromyalgia M79.7 ; Ventricular diastolic dysfunction determined by echocardiography I51.9 ; Allergic rhinitis J30.9 ; Morbid (severe) obesity due to excess calories E66.01 and Body mass index (BMI) of 38.0-38.9 in adult Z68.38 [address] [place] [address] 1990 Jul, Hypertension I10 ; Atrial fibrillation I48.91 ; Mild persistent asthma without complication J45.30 ; Morbid obesity E66.01 ; Hyperlipidemia E78.5 ; Allergic rhinitis J30.9 ; Sleep apnea in adult G47.33 ; Sleeps in sitting position due to orthopnea R06.01 and Carpal tunnel syndrome of left wrist G56.02 [place] [address] [place] [id number] [place] [address] 60247- 1232 Jul, [place] [address] [place] [id number] [place] [address] 53681- 0894 Jul, [place] [address] [place] [id number] [place] [address] 30832- 2713 Jul, [place] [address] [place] [address] 35204- 6629 14 May, 2017 Hypothyroidism, unspecified E03.9 and Hypertension I10 [place] [address] [place] [id number] [place] [address] 75356- 4815 13 May, 2017 Acute bilateral low back pain without sciatica M54.5 ; Dysuria R30.0 and Muscle spasm of back M62.830 [place] [address] [place] [id number] [place] [address] 08968- 70[address] 06 May, 2017 Hypertension I10 [place] [id number] [place] [address] Apr, Hypertension I10 [place] [address] [place] [id number] [place] [address] 33060- 1193 Apr, Hypertension I10 ; Atrial fibrillation I48.91 ; Hyperlipidemia E78.5 and Allergic rhinitis J30.9 [place] [address] [place] [id number] [place] [address] 89212- 5601 Jan, Dysuria R30.0 and Acute cystitis without hematuria N30.00 [place] [address] [place] [id number] [place] [address] 15639- 4003 Jan, Hypothyroidism, unspecified E03.9 and Hypertension I10 [place] [id number] [place] [address] 15584- 9647 November, Encounter for well woman exam Z01.419 and Encounter for breast cancer screening other than mammogram Z12.[address] [place] [address] 10403- 4082 Sep, Hypertension I10 ; Atrial fibrillation I48.91 ; Hypothyroidism, unspecified E03.9 ; Morbid obesity E66.01 ; Hyperlipidemia E78.5 ; Mild persistent asthma without complication J45.30 ; Allergic rhinitis J30.9 ; Slow transit constipation K59.01 ; Other viral agents as the cause of diseases classified elsewhere B97.89 ; Acute upper respiratory infection, unspecified J06.9 and H/O fibromyalgia Z87.[address] [address]- [address] Jul, [place] [address] [address] Jun, Routine lab draw Z00.00 ; Hypertension I10 ; Atrial fibrillation I48.91 ; Hypothyroidism, unspecified E03.9 and Morbid obesity E66.01 [place] [address] 35[address]- 7608 Jun, Hypertension I10 ; Atrial fibrillation I48.91 ; Hypothyroidism, unspecified E03.9 ; Morbid obesity E66.01 ; Hyperlipidemia E78.5 ; Mild persistent asthma without complication J45.30 ; Allergic rhinitis J30.9 and Slow transit constipation K59.[address] [address]- [address]10 May, [facility] [address] [address] Apr, Bug bite, initial encounter W57.XXXA [address] 6[address]67- 4812 Mar, Chronic atrial fibrillation I48.[address] [address]- [address] Dec, Hypertension I10 ; H/O fibromyalgia Z87.39 ; Atrial fibrillation I48.91 ; Hypothyroidism, unspecified E03.9 ; Morbid obesity E66.01 ; History of asthma Z87.09 ; Hyperlipidemia E78.5 and Shortness of breath R06.[address] 9[address]26- 0563 November, [facility] [address] [address] Oct, Candidal dermatitis B37.[address] 75925- 2881 Oct, [facility] [address] [place] [id number] [place] [address]79- 4207 Sep, Mild persistent asthma without complication J45.30 ; Dysuria R30.0 ; Leukopenia D72.819 ; Hypertension I10 and Vaginal cayla B37.3 [place] [address] [place] [id number] [place] [address] 35698- 6193 Jul, [place] [address] [address]- 1105 Jun, [place] [address] [place] [id number] [place] [address] 78858- 9675 Jun, [place] [address] [place] [id number] [place] [address] 66275- 1616 Jun, [place] [address] [place] [id number] [place] [address] 75684- 3347 May, HTN (hypertension) I10 ; Hypertension I10 ; H/O fibromyalgia Z87.39 ; Atrial fibrillation I48.91 ; Hypothyroidism, unspecified E03.9 ; Morbid obesity E66.01 and Hyperlipidemia E78.5 [place] [address] [place] [id number] [place] [address] 04716- 7250 May, [place] [address] [place] [id number] [place] [address] 21446- 9256 May, [place] [address] [place] [id number] [place] [address] 34836- 5781 May, General medical exam Z00.00 ; Hypertension I10 ; H/O fibromyalgia Z87.39 ; Irregular heart beat I49.9 ; Dysuria R30.0 ; Dietary counseling Z71.3 ; Exercise counseling Z71.89 ; Sleep apnea in adult G47.33 ; Atrial fibrillation I48.91 ; Hypothyroidism, unspecified E03.9 and Morbid obesity E66.01 [place] [address] [place] [id number] [place] [address]19- 8419 May, General medical exam Z00.00 ; Hypertension I10 ; H/O fibromyalgia Z87.39 ; Dysuria R30.0 ; Dietary counseling Z71.3 ; Exercise counseling Z71.89 ; Sleep apnea in adult G47.33 ; Atrial fibrillation I48.91 ; Hypothyroidism, unspecified E03.9 ; Morbid obesity E66.01 ; Allergic rhinitis J30.9 and History of asthma Z87.09 [facility] [address] [facility] [id number] [address] November, [facility] [address] [facility] [id number] [address] November, IMMUNIZATIONS No Known Immunizations SOCIAL HISTORY Never Assessed REASON FOR VISIT Repository Medication PLAN OF CARE VITAL SIGNS MEDICATIONS Medication Instructions Dosage Frequency Start Date End Date Duration Status Lisinopril 20 mg Orally Once a day [...]
--- OUTSIDE RECORDS SUMMARY | 2018-06-26 03:23 | XMS REPORT ---
Author Author BOY MERCADO Organization [facility] Address [address] [place] [address] Care Team Providers Care Residential Support Worker Name Role Phone BOY MERCADO Unavailable PROBLEMS Type Condition ICD9-CM Code RLG77-RF Code Onset Dates Condition Status SNOMED Code Problem Fibromyalgia M79.7 Active 651354200 Problem Body mass index (BMI) of 38.0-38.9 in adult Z68.38 Active 162772134 Problem Morbid (severe) obesity due to excess calories E66.01 Active 783375798 Problem Constipation by delayed colonic transit K59.01 Active 27430149 Problem Post concussive syndrome F07.81 Active 85547497 Problem Sleeps in sitting position due to orthopnea R06.01 Active 817807992835498 Problem Ventricular diastolic dysfunction determined by echocardiography I51.9 Active 448339333 Problem Frequent falls R29.6 Active 821156866 Problem Carpal tunnel syndrome of left wrist G56.02 Active 611039100564484 Problem Hypertension I10 Active 15502221 Problem Allergic rhinitis J30.9 Active 60220708 Problem Hepatomegaly R16.0 Active 72468908 Problem Hypothyroidism, unspecified E03.9 Active 23139641 Problem Atrial fibrillation I48.91 Active 95050406 Problem Hyperlipidemia E78.5 Active 78728548 Problem Sleep apnea in adult G47.33 Active 24836361 Problem Mild persistent asthma without complication J45.30 Active 145535879 Problem Morbid obesity E66.01 Active 044987814 Problem Slow transit constipation K59.01 Active 61570004 ALLERGIES No Information ENCOUNTERS Encounter Location Date Diagnosis [facility] [address] [facility] [id number] [address] Jan, [facility] [address] [facility] [id number] [address] Oct, Hypertension I10 ; Atrial fibrillation I48.91 ; Hypothyroidism, unspecified E03.9 ; Fibromyalgia M79.7 ; Mild persistent asthma without complication J45.30 ; Allergic rhinitis J30.9 ; Constipation by delayed colonic transit K59.01 and Hospital discharge follow-up Z09 [place] [address], [place] [address] Oct, [place] [address] [place] [id number] [place] [address] 21828- 0[address] 09 Oct, 2017 Hospital discharge follow-up Z09 ; Status post fall Z91.81 ; Traumatic black eye of right side, initial encounter S00.11XA ; Traumatic black eye of left side, initial encounter S00.12XA ; Closed fracture of right wrist, initial encounter S62.101A and Post concussive syndrome F07.81 [place] [address] [place] [id number] [place] [address]43- 7229 Oct, [place] [address] [place] [id number] [place] [address] 49836- 4856 12 Aug, 2017 Hypertension I10 ; Atrial fibrillation I48.91 ; Hyperlipidemia E78.5 ; Hypothyroidism, unspecified E03.9 ; Mild persistent asthma without complication J45.30 ; Sleep apnea in adult G47.33 ; Fibromyalgia M79.7 ; Ventricular diastolic dysfunction determined by echocardiography I51.9 ; Allergic rhinitis J30.9 ; Morbid (severe) obesity due to excess calories E66.01 and Body mass index (BMI) of 38.0-38.9 in adult Z68.[address] [place] [address] 60741- 7703 Jul, Hypertension I10 ; Atrial fibrillation I48.91 ; Mild persistent asthma without complication J45.30 ; Morbid obesity E66.01 ; Hyperlipidemia E78.5 ; Allergic rhinitis J30.9 ; Sleep apnea in adult G47.33 ; Sleeps in sitting position due to orthopnea R06.01 and Carpal tunnel syndrome of left wrist G56.02 [place] [address], [place] [address]- [address] Jul, [place] [address] [place] [id number] [place] [address] 05178- 0614 Jul, [place] [address] [place] [id number] [place] [address] 46920- 6468 Jul, [place] [address] [place] [id number] [place] [address] 78474- 9799 14 May, 2017 Hypothyroidism, unspecified E03.9 and Hypertension I10 [place] [address] 73705- 4043 May, Acute bilateral low back pain without sciatica M54.5 ; Dysuria R30.0 and Muscle spasm of back M62.830 [place] [address] [place] [id number] [place] [address] 75318- 4375 May, Hypertension I10 [place] [id number] [place] [address] 41082- 0696 Apr, Hypertension I10 [place] [address] [place] [id number] [place] [address] 31434- 9240 Apr, Hypertension I10 ; Atrial fibrillation I48.91 ; Hyperlipidemia E78.5 and Allergic rhinitis J30.9 [place] [id number] [place] [address] 76952- 3482 Jan, Dysuria R30.0 and Acute cystitis without hematuria N30.00 [place] [id number] [place] [address] 52258- 3282 Jan, Hypothyroidism, unspecified E03.9 and Hypertension I10 [place] [address] [place] [id number] [place] [address] 25125- 5069 November, Encounter for well woman exam Z01.419 and Encounter for breast cancer screening other than mammogram Z12.39 [place] [id number] [place] [address] 48354- 2900 Sep, Hypertension I10 ; Atrial fibrillation I48.91 ; Hypothyroidism, unspecified E03.9 ; Morbid obesity E66.01 ; Hyperlipidemia E78.5 ; Mild persistent asthma without complication J45.30 ; Allergic rhinitis J30.9 ; Slow transit constipation K59.01 ; Other viral agents as the cause of diseases classified elsewhere B97.89 ; Acute upper respiratory infection, unspecified J06.9 and H/O fibromyalgia Z87.[address] [address]- 5850 Jul, [address] 19959- [address] Jun, Routine lab draw Z00.00 ; Hypertension I10 ; Atrial fibrillation I48.91 ; Hypothyroidism, unspecified E03.9 and Morbid obesity E66.[address] 26725- 9774 Jun, Hypertension I10 ; Atrial fibrillation I48.91 ; Hypothyroidism, unspecified E03.9 ; Morbid obesity E66.01 ; Hyperlipidemia E78.5 ; Mild persistent asthma without complication J45.30 ; Allergic rhinitis J30.9 and Slow transit constipation K59.[address] 33197- 8882 May, [facility] [address] [address] Apr, Bug bite, initial encounter W57.XXXA [address] 48487- 9265 Mar, Chronic atrial fibrillation I48.[address] 40358- 2963 Dec, Hypertension I10 ; H/O fibromyalgia Z87.39 ; Atrial fibrillation I48.91 ; Hypothyroidism, unspecified E03.9 ; Morbid obesity E66.01 ; History of asthma Z87.09 ; Hyperlipidemia E78.5 and Shortness of breath R06.[address] 98486- 7401 November, [facility] [address] 42[address]261 Oct, Candidal dermatitis B37.2 [place] [address] [place] [id number] [place] [address] 50151- 5846 Oct, [place] [address] [place] [id number] [place] [address] 24059- 6995 Sep, Mild persistent asthma without complication J45.30 ; Dysuria R30.0 ; Leukopenia D72.819 ; Hypertension I10 and Vaginal cayla B37.3 [place] [address] [place] [id number] [place] [address] 34007- 2433 Jul, [place] [address] [place] [id number] [place] [address] 13603- 4203 Jun, [place] [address] [place] [id number] [place] [address] 26117- 7787 Jun, [place] [address] [place] [id number] [place] [address] 80010- 1240 Jun, [place] [address] [place] [id number] [place] [address] 67979- 7409 May, HTN (hypertension) I10 ; Hypertension I10 ; H/O fibromyalgia Z87.39 ; Atrial fibrillation I48.91 ; Hypothyroidism, unspecified E03.9 ; Morbid obesity E66.01 and Hyperlipidemia E78.5 [place] [address] [place] [id number] [place] [address] 92649- 7555 May, [place] [address] [place] [id number] [place] [address] 15330- 1594 May, [place] [address] [place] [id number] [place] [address] 40502- 6409 May, General medical exam Z00.00 ; Hypertension I10 ; H/O fibromyalgia Z87.39 ; Irregular heart beat I49.9 ; Dysuria R30.0 ; Dietary counseling Z71.3 ; Exercise counseling Z71.89 ; Sleep apnea in adult G47.33 ; Atrial fibrillation I48.91 ; Hypothyroidism, unspecified E03.9 and Morbid obesity E66.01 [place] [address] [facility] [id number] [address]- [address] 10 May, 2015 General medical exam Z00.00 ; Hypertension I10 ; H/O fibromyalgia Z87.39 ; Dysuria R30.0 ; Dietary counseling Z71.3 ; Exercise counseling Z71.89 ; Sleep apnea in adult G47.33 ; Atrial fibrillation I48.91 ; Hypothyroidism, unspecified E03.9 ; Morbid obesity E66.01 ; Allergic rhinitis J30.9 and History of asthma Z87.09 [place] [address] [id number] [address]- [address] November, [place] [address] [id number] [address]- 5023 November, IMMUNIZATIONS No Known Immunizations SOCIAL HISTORY Never Assessed REASON FOR VISIT Requests return call PLAN OF CARE VITAL SIGNS MEDICATIONS Unknown [...]
--- OUTSIDE RECORDS SUMMARY | 2018-06-26 03:24 | XMS REPORT ---
Author Author BOY MERCADO Organization [facility] Address [address] [place] [address] Care Team Providers Care Wire Stitcher Name Role Phone BOY MERCADO Unavailable PROBLEMS Type Condition ICD9-CM Code [id number] Code Onset Dates Condition Status SNOMED Code Problem Fibromyalgia M79.7 Active 200794814 Problem Body mass index (BMI) of 38.0-38.9 in adult Z68.38 Active 013723811 Problem Morbid (severe) obesity due to excess calories E66.01 Active 712614987 Problem Constipation by delayed colonic transit K59.01 Active 43162010 Problem Post concussive syndrome F07.81 Active 70575325 Problem Sleeps in sitting position due to orthopnea R06.01 Active 927659110833191 Problem Ventricular diastolic dysfunction determined by echocardiography I51.9 Active 409963945 Problem Frequent falls R29.6 Active 789603041 Problem Carpal tunnel syndrome of left wrist G56.02 Active 897004581372539 Problem Hypertension I10 Active 66949616 Problem Allergic rhinitis J30.9 Active 41250705 Problem Hepatomegaly R16.0 Active 29784469 Problem Hypothyroidism, unspecified E03.9 Active 71201856 Problem Atrial fibrillation I48.91 Active 07554406 Problem Hyperlipidemia E78.5 Active 57380206 Problem Sleep apnea in adult G47.33 Active 79153860 Problem Mild persistent asthma without complication J45.30 Active 562359424 Problem Morbid obesity E66.01 Active 918800193 Problem Slow transit constipation K59.01 Active 69337349 ALLERGIES No Information ENCOUNTERS Encounter Location Date Diagnosis [facility] [address] [facility] [id number] [address] Jan, [facility] [address] [facility] [id number] [address] Oct, Hypertension I10 ; Atrial fibrillation I48.91 ; Hypothyroidism, unspecified E03.9 ; Fibromyalgia M79.7 ; Mild persistent asthma without complication J45.30 ; Allergic rhinitis J30.9 ; Constipation by delayed colonic transit K59.01 and Hospital discharge follow-up Z09 [place] [address] [address] Oct, [place] [address] [place] [id number] [place] [address] 09 Oct, 2017 Hospital discharge follow-up Z09 ; Status post fall Z91.81 ; Traumatic black eye of right side, initial encounter S00.11XA ; Traumatic black eye of left side, initial encounter S00.12XA ; Closed fracture of right wrist, initial encounter S62.101A and Post concussive syndrome F07.81 [place] [address] [place] [id number] [place] [address] Oct, [place] [address] [place] [id number] [place] [address] 12 Aug, 2017 Hypertension I10 ; Atrial fibrillation I48.91 ; Hyperlipidemia E78.5 ; Hypothyroidism, unspecified E03.9 ; Mild persistent asthma without complication J45.30 ; Sleep apnea in adult G47.33 ; Fibromyalgia M79.7 ; Ventricular diastolic dysfunction determined by echocardiography I51.9 ; Allergic rhinitis J30.9 ; Morbid (severe) obesity due to excess calories E66.01 and Body mass index (BMI) of 38.0-38.9 in adult Z68.38 [address] [place] [address] Jul, Hypertension I10 ; Atrial fibrillation I48.91 ; Mild persistent asthma without complication J45.30 ; Morbid obesity E66.01 ; Hyperlipidemia E78.5 ; Allergic rhinitis J30.9 ; Sleep apnea in adult G47.33 ; Sleeps in sitting position due to orthopnea R06.01 and Carpal tunnel syndrome of left wrist G56.02 [place] [address], [place] [address] Jul, [place] [address] [place] [id number] [place] [address] Jul, [place] [address] [place] [id number] [place] [address] Jul, [place] [address] [place] [id number] [place] [address] 14 May, 2017 Hypothyroidism, unspecified E03.9 and Hypertension I10 [place] [address] [address] May, Acute bilateral low back pain without sciatica M54.5 ; Dysuria R30.0 and Muscle spasm of back M62.830 [place] [address] [place] [id number] [place] [address] May, Hypertension I10 [place] [id number] [place] [address] Apr, Hypertension I10 [place] [address] [place] [id number] [place] [address] Apr, Hypertension I10 ; Atrial fibrillation I48.91 ; Hyperlipidemia E78.5 and Allergic rhinitis J30.9 [place] [id number] [place] [address] Jan, Dysuria R30.0 and Acute cystitis without hematuria N30.00 [place] [id number] [place] [address] Jan, Hypothyroidism, unspecified E03.9 and Hypertension I10 [place] [address] [place] [id number] [place] [address] November, Encounter for well woman exam Z01.419 and Encounter for breast cancer screening other than mammogram Z12.39 [place] [id number] [place] [address] Sep, Hypertension I10 ; Atrial fibrillation I48.91 ; Hypothyroidism, unspecified E03.9 ; Morbid obesity E66.01 ; Hyperlipidemia E78.5 ; Mild persistent asthma without complication J45.30 ; Allergic rhinitis J30.9 ; Slow transit constipation K59.01 ; Other viral agents as the cause of diseases classified elsewhere B97.89 ; Acute upper respiratory infection, unspecified J06.9 and H/O fibromyalgia Z87.[address] [address] Jul, [address] [address] Jun, Routine lab draw Z00.00 ; Hypertension I10 ; Atrial fibrillation I48.91 ; Hypothyroidism, unspecified E03.9 and Morbid obesity E66.[address] [address] Jun, Hypertension I10 ; Atrial fibrillation I48.91 ; Hypothyroidism, unspecified E03.9 ; Morbid obesity E66.01 ; Hyperlipidemia E78.5 ; Mild persistent asthma without complication J45.30 ; Allergic rhinitis J30.9 and Slow transit constipation K59.[address] [address] May, [facility] [address] [address] Apr, Bug bite, initial encounter W57.XXXA [address] [address] Mar, Chronic atrial fibrillation I48.[address] [address] Dec, Hypertension I10 ; H/O fibromyalgia Z87.39 ; Atrial fibrillation I48.91 ; Hypothyroidism, unspecified E03.9 ; Morbid obesity E66.01 ; History of asthma Z87.09 ; Hyperlipidemia E78.5 and Shortness of breath R06.[address] [address] November, [facility] [address] [address] Oct, Candidal dermatitis B37.2 [place] [address] [place] [id number] [place] [address]11[address] Oct, [place] [address] [place] [id number] [place] [address] Sep, Mild persistent asthma without complication J45.30 ; Dysuria R30.0 ; Leukopenia D72.819 ; Hypertension I10 and Vaginal cayla B37.3 [place] [address] [place] [id number] [place] [address] Jul, [place] [address] [place] [id number] [place] [address] Jun, [place] [address] [place] [id number] [place] [address] Jun, [place] [address] [place] [id number] [place] [address] 269[address] Jun, [place] [address] [place] [id number] [place] [address] May, HTN (hypertension) I10 ; Hypertension I10 ; H/O fibromyalgia Z87.39 ; Atrial fibrillation I48.91 ; Hypothyroidism, unspecified E03.9 ; Morbid obesity E66.01 and Hyperlipidemia E78.5 [place] [address] [place] [id number] [place] [address] May, [place] [address] [place] [id number] [place] [address] May, [place] [address] [place] [id number] [place] [address] May, General medical exam Z00.00 ; Hypertension I10 ; H/O fibromyalgia Z87.39 ; Irregular heart beat I49.9 ; Dysuria R30.0 ; Dietary counseling Z71.3 ; Exercise counseling Z71.89 ; Sleep apnea in adult G47.33 ; Atrial fibrillation I48.91 ; Hypothyroidism, unspecified E03.9 and Morbid obesity E66.01 [place] [address] [facility] [id number] [address] 10 May, 2015 General medical exam Z00.00 ; Hypertension I10 ; H/O fibromyalgia Z87.39 ; Dysuria R30.0 ; Dietary counseling Z71.3 ; Exercise counseling Z71.89 ; Sleep apnea in adult G47.33 ; Atrial fibrillation I48.91 ; Hypothyroidism, unspecified E03.9 ; Morbid obesity E66.01 ; Allergic rhinitis J30.9 and History of asthma Z87.09 [place] [address] [place] [id number] [address] November, [place] [address] [place] [id number] [address] November, IMMUNIZATIONS No Known Immunizations SOCIAL HISTORY Never Assessed REASON FOR VISIT triage PLAN OF CARE VITAL SIGNS MEDICATIONS Unknown [...]
--- OUTSIDE RECORDS SUMMARY | 2018-06-26 03:27 | XMS REPORT | Continuity of Care Document ---
Author Author [facility] Address Unknown Phone Unavailable Allergies Active Description Code Type Severity Reaction Onset Reported/Identified Relationship to Patient Clinical Status Yes aspirin [id number] Drug Allergy Mild N/A 01/04/2014 Yes codeine [id number] Drug Allergy Mild N/A 01/04/2014 Yes opium tincture [id number] Drug Allergy Mild N/A 01/04/2014 Yes Penicillins [id number] Drug Allergy Mild N/A 01/04/2014 Yes Cloddur-Fuk-Ghi Reductase Inhibitor [id number] Drug Allergy Mild N/A 2013 Yes tramadol [id number] Drug Allergy Mild N/A 01/04/2014 Medications There [...] MD Ot I25.10 ATHSCL HEART DISEASE OF [place] CORONARY 08/21/2015 ANSON POMPA MD Ot I48.0 PAROXYSMAL ATRIAL FIBRILLATION 08/21/2015 ANSON POMPA MD, Ot J44.9 CHRONIC OBSTRUCTIVE PULMONARY DISEASE, U 08/21/2015 ANSON POMPA MD Ot R94.39 ABNORMAL RESULT OF OTHER CARDIOVASCULAR 08/21/2015 ANSON POMPA MD Ot Z68.41 BODY MASS INDEX (BMI) 40.0-44.9, ADULT 08/21/2015 ANSON POMPA MD Ot Z79.01 COFFIN MAKER (CURRENT) USE OF ANTICOAGULANT 08/21/2015 ANSON POMPA MD Ot Z79.899 OTHER NURSING HOME (CURRENT) DRUG THERAPY 08/21/2015 ANSON POMPA [...] 401.9 09/24/2015 Ot 244.9 09/24/2015 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 Ot 715.36 09/24/2015 WINSTON ERVIN, ZEB Clark [...] 401.9 09/24/2015 Ot 244.9 09/24/2015 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 Ot 715.36 09/24/2015 WINSTON ERVIN, ZEB Clark [...] MD Ot I25.10 ATHSCL HEART DISEASE OF [place] CORONARY 09/30/2015 TANG CARLOS MD, Ot I48.0 [...] ADULT 09/30/2015 TANG CARLOS MD, Ot Z79.01 COFFIN MAKER (CURRENT) USE OF ANTICOAGULANT 09/30/2015 TANG CARLOS [...] MD Ot I25.10 ATHSCL HEART DISEASE OF [place] CORONARY 10/17/2015 ANSON POMPA MD Ot I48.91 [...] Ot 715.36 LOC OSTEOARTH NOS-L/LEG 12/09/2016 WINSTON EVRIN, ZEB Clark Ot V76.12 OTH SCREEN MAMMO-MALIGN NEOPLASM OF [place] 12/09/2016 BOY MERCADO TEST AUTOMATION ARCHITECT Ot I48.91 UNSPECIFIED ATRIAL FIBRILLATION 12/09/2016 ANSON POMPA MD Ot E78.2 MIXED HYPERLIPIDEMIA 12/09/2016 ANSON POMPA MD, Ot G47.33 OBSTRUCTIVE SLEEP APNEA (ADULT) (PEDIATR 12/09/2016 ANSON POMPA MD Ot I10 ESSENTIAL (PRIMARY) HYPERTENSION 12/09/2016 ANSON POMPA MD Ot I48.0 PAROXYSMAL ATRIAL FIBRILLATION 12/09/2016 ANSON POMPA MD Ot R07.89 OTHER CHEST PAIN 12/09/2016 BOY MERCADO TEST AUTOMATION ARCHITECT Ot Z78.0 ASYMPTOMATIC MENOPAUSAL STATE 12/09/2016 BOY MERCADO TEST AUTOMATION ARCHITECT Ot Z78.0 ASYMPTOMATIC MENOPAUSAL STATE 12/10/2016 BOY MERCADO TEST AUTOMATION ARCHITECT Ot Z78.0 ASYMPTOMATIC MENOPAUSAL STATE 12/23/2016 Ot 244.9 HYPOTHYROIDISM NOS 12/23/2016 Ot 272.4 HYPERLIPIDEMIA NEC/NOS 12/23/2016 Ot 401.9 HYPERTENSION NOS 12/23/2016 Ot 244.9 HYPOTHYROIDISM NOS 12/23/2016 Ot 272.4 HYPERLIPIDEMIA NEC/NOS 12/23/2016 Ot 401.9 HYPERTENSION NOS 12/23/2016 Ot 244.9 HYPOTHYROIDISM NOS 12/23/2016 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 Ot 715.36 LOC OSTEOARTH NOS-L/LEG 12/23/2016 WINSTON ERVIN, ZEB Clark Ot V76.12 OTH SCREEN MAMMO-MALIGN NEOPLASM OF [place] 12/23/2016 MERCADO BOY Graham TEST AUTOMATION ARCHITECT Ot I48.91 UNSPECIFIED ATRIAL FIBRILLATION 12/23/2016 ANSON POMPA MD Ot E78.2 MIXED HYPERLIPIDEMIA 12/23/2016 ANSON POMPA MD Ot G47.33 OBSTRUCTIVE SLEEP APNEA (ADULT) (PEDIATR 12/23/2016 ANSON OPMPA MD Ot I10 ESSENTIAL (PRIMARY) HYPERTENSION 12/23/2016 ANSON POMPA MD Ot I48.0 PAROXYSMAL ATRIAL FIBRILLATION 12/23/2016 ANSON POMPA MD Ot R07.89 OTHER CHEST PAIN 12/23/2016 EV DARBY APRN Ot I10 ESSENTIAL (PRIMARY) HYPERTENSION 12/23/2016 EV DARBY APRN Ot I25.10 ATHSCL HEART DISEASE OF [place] CORONARY 12/23/2016 EV DARBY APRN Ot M54.5 [...] R07.89 OTHER CHEST PAIN 12/25/2016 BOY MERCADO TEST AUTOMATION ARCHITECT Ot M85.88 OTH DISRD OF BONE DENSITY AND STRUCTURE, 12/25/2016 BOY MERCADO TEST AUTOMATION ARCHITECT Ot Z78.0 ASYMPTOMATIC MENOPAUSAL STATE 01/14/2017 BOY MERCADO TEST AUTOMATION ARCHITECT Ot M85.88 OTH DISRD OF BONE DENSITY AND STRUCTURE, 01/14/2017 BOY MERCADO TEST AUTOMATION ARCHITECT Ot Z78.0 ASYMPTOMATIC MENOPAUSAL STATE 01/20/2017 BOY MERCADO TEST AUTOMATION ARCHITECT Ot M85.88 OTH DISRD OF BONE DENSITY AND STRUCTURE, 01/20/2017 BOY MERCADO TEST AUTOMATION ARCHITECT Ot Z78.0 ASYMPTOMATIC MENOPAUSAL STATE 07/28/2017 BOY MERCADO TEST AUTOMATION ARCHITECT Ot M85.88 OTH DISRD OF BONE DENSITY AND STRUCTURE, 07/28/2017 OBY MERCADO TEST AUTOMATION ARCHITECT Ot Z78.0 ASYMPTOMATIC MENOPAUSAL STATE 07/29/2017 TERRANCE [...] MD Ot I25.10 ATHSCL HEART DISEASE OF [place] CORONARY 07/29/2017 TANG CARLOS MD Ot I48.2 [...] R07.89 OTHER CHEST PAIN 07/29/2017 BOY MERCADO TEST AUTOMATION ARCHITECT Ot M85.88 OT DISRD OF BONE DENSITY AND STRUCTURE, 07/29/2017 BOY MERCADO TEST AUTOMATION ARCHITECT Ot Z78.0 ASYMPTOMATIC MENOPAUSAL STATE 08/26/2017 PERI MABRY Ot E78.2 MIXED HYPERLIPIDEMIA 08/26/2017 OTIS PONCE, PERI K Ot I10 ESSENTIAL (PRIMARY) HYPERTENSION 08/26/2017 OTIS PONCE PERI K Ot I25.10 ATHSCL HEART DISEASE OF [place] CORONARY 08/26/2017 PERI MABRY Ot 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 08/26/2017 PERI MABRY Ot R07.89 OTHER CHEST PAIN 08/31/2017 PERI MABRY Ot E78.2 MIXED HYPERLIPIDEMIA 08/31/2017 OTIS PONCE, PERI K Ot I10 ESSENTIAL (PRIMARY) HYPERTENSION 08/31/2017 OTIS PONCE PERI K Ot I25.10 ATHSCL HEART DISEASE OF [place] CORONARY 08/31/2017 OTIS PONCE PERI K Ot 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 08/31/2017 OTIS PONCE PERI K Ot R07.89 OTHER CHEST PAIN 09/15/2017 OTIS PONCE PERI K Ot E78.2 MIXED HYPERLIPIDEMIA 09/15/2017 OTIS PONCE PERI K Ot I10 ESSENTIAL (PRIMARY) HYPERTENSION 09/15/2017 OTIS PONCE PERI K Ot I25.10 ATHSCL HEART DISEASE OF [place] CORONARY 09/15/2017 OTIS PONCE PERI K Ot 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 09/15/2017 OTIS PONCE PERI K Ot R07.89 OTHER CHEST PAIN 09/21/2017 PERI MABRY Ot E78.2 MIXED HYPERLIPIDEMIA 09/21/2017 PERI MABRY K Ot I10 ESSENTIAL (PRIMARY) HYPERTENSION 09/21/2017 PERI MABRY Ot I25.10 ATHSCL HEART DISEASE OF [place] CORONARY 09/21/2017 PERI MABRY Ot 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 09/21/2017 PERI MABRY Ot R07.89 OTHER CHEST PAIN 10/23/2017 NY JONES MD Ot E03.9 HYPOTHYROIDISM, UNSPECIFIED 10/23/2017 NY JONES MD Ot E66.9 OBESITY, UNSPECIFIED 10/23/2017 NY JONES MD Ot E78.00 PURE HYPERCHOLESTEROLEMIA, UNSPECIFIED 10/23/2017 NY JONES MD Ot G47.30 SLEEP APNEA, UNSPECIFIED 10/23/2017 NY JONES MD Ot I11.0 HYPERTENSIVE HEART DISEASE WITH HEART FA 10/23/2017 NY JONES MD, Ot I25.10 ATHSCL HEART DISEASE OF [place] CORONARY 10/23/2017 NY JONES MD Ot I48.91 UNSPECIFIED ATRIAL FIBRILLATION 10/23/2017 NY JONES MD Ot I50.9 HEART FAILURE, UNSPECIFIED 10/23/2017 NY JONES MD Ot J45.909 UNSPECIFIED ASTHMA, UNCOMPLICATED 10/23/2017 NY JONES MD Ot M81.0 AGE-RELATED OSTEOPOROSIS W/O CURRENT PAT 10/23/2017 NY JONES MD Ot R40.2142 COMA SCALE, EYES OPEN, SPONTANEOUS, EMR 10/23/2017 NY JONES MD, Ot R40.2252 COMA SCALE, BEST VERBAL RESPONSE, ORIENT 10/23/2017 NY JONES MD, Ot R40.2362 COMA SCALE, BEST MOTOR RESPONSE, OBEYS C 10/23/2017 NY JONES MD Ot S00.83XA CONTUSION OF OTHER PART OF HEAD, INITIAL 10/23/2017 NY JONES MD Ot S06.0X1A CONCUSSION W LOC OF 30 MINUTES OR LESS, 10/23/2017 NY JONES MD Ot S52.591A OT FRACTURES OF LOWER END OF RIGHT RADI 10/23/2017 NY JONES MD, Ot W18.39XA OTHER FALL ON SAME LEVEL, INITIAL ENCOUN 10/23/2017 NY JONES MD, Ot Z23 ENCOUNTER FOR IMMUNIZATION 10/23/2017 NY JONES MD, Ot Z68.28 BODY MASS INDEX (BMI) 28.0-28.9, ADULT 10/23/2017 NY JONES MD, Ot Z79.01 COFFIN MAKER (CURRENT) USE OF ANTICOAGULANT 10/23/2017 NY JONES MD, Ot Z79.51 COFFIN MAKER (CURRENT) USE OF INHALED STERO 10/23/2017 NY JONES MD, Ot Z79.82 COFFIN MAKER (CURRENT) USE OF ASPIRIN 10/23/2017 NY JONES MD, Ot Z80.0 FAMILY HISTORY OF MALIGNANT NEOPLASM OF 10/23/2017 NY JONES MD, Ot Z87.440 PERSONAL HISTORY OF URINARY (TRACT) INFE 10/23/2017 NY JONES MD, Ot Z88.0 ALLERGY STATUS TO PENICILLIN 10/23/2017 NY JONES MD, Ot Z88.5 ALLERGY STATUS TO NARCOTIC AGENT STATUS 10/23/2017 NY JONES MD, Ot Z88.6 ALLERGY STATUS TO ANALGESIC AGENT STATUS 10/23/2017 NY JONES MD, Ot Z88.8 ALLERGY STATUS TO OT DRUG/MEDS/BIOL SUB 10/23/2017 NY JONES MD, Ot Z98.51 TUBAL LIGATION STATUS 10/26/2017 NY JONES MD, Ot E03.9 HYPOTHYROIDISM, UNSPECIFIED 10/26/2017 NY JONES MD, Ot E66.9 OBESITY, UNSPECIFIED 10/26/2017 NY JONES MD, Ot E78.00 PURE HYPERCHOLESTEROLEMIA, UNSPECIFIED 10/26/2017 NY JONES MD, Ot G47.30 SLEEP APNEA, UNSPECIFIED 10/26/2017 NY JONES MD, Ot I11.0 HYPERTENSIVE HEART DISEASE WITH HEART FA 10/26/2017 NY JONES MD, Ot I25.10 ATHSCL HEART DISEASE OF [place] CORONARY 10/26/2017 NY JONES MD, Ot I48.91 UNSPECIFIED ATRIAL FIBRILLATION 10/26/2017 NY JONES MD, Ot I50.9 HEART FAILURE, UNSPECIFIED 10/26/2017 NY JONES MD, Ot J45.909 UNSPECIFIED ASTHMA, UNCOMPLICATED 10/26/2017 NY JONES MD, Ot M81.0 AGE-RELATED OSTEOPOROSIS W/O CURRENT PAT 10/26/2017 NY JONES MD, Ot R40.2142 COMA SCALE, EYES OPEN, SPONTANEOUS, EMR 10/26/2017 NY JONES MD, Ot R40.2252 COMA SCALE, BEST VERBAL RESPONSE, ORIENT 10/26/2017 NY JONES MD, Ot R40.2362 COMA SCALE, BEST MOTOR RESPONSE, OBEYS C 10/26/2017 NY JONES MD, Ot S00.83XA CONTUSION OF OTHER PART OF HEAD, INITIAL 10/26/2017 NY JONES MD, Ot S06.0X1A CONCUSSION W LOC OF 30 MINUTES OR LESS, 10/26/2017 NY JONES MD, Ot S52.591A OTH FRACTURES OF LOWER END OF RIGHT RADI 10/26/2017 NY JONES MD, Ot W18.39XA OTHER FALL ON SAME LEVEL, INITIAL ENCOUN 10/26/2017 NY JONES MD, Ot Z23 ENCOUNTER FOR IMMUNIZATION 10/26/2017 NY JONES MD, Ot Z68.28 BODY MASS INDEX (BMI) 28.0-28.9, ADULT 10/26/2017 NY JONES MD, Ot Z79.01 COFFIN MAKER (CURRENT) USE OF ANTICOAGULANT 10/26/2017 NY JONES MD, Ot Z79.51 NURSING HOME (CURRENT) USE OF INHALED STERO 10/26/2017 NY JONES MD, Ot Z79.82 COFFIN MAKER (CURRENT) USE OF ASPIRIN 10/26/2017 BRUEGGEMANN MD, NY T Ot Z80.0 FAMILY HISTORY OF MALIGNANT NEOPLASM OF 10/26/2017 NY JONES MD Ot Z87.440 PERSONAL HISTORY OF URINARY (TRACT) INFE 10/26/2017 NY JONES MD, Ot Z88.0 ALLERGY STATUS TO PENICILLIN 10/26/2017 NY JONES MD Ot Z88.5 ALLERGY STATUS TO NARCOTIC AGENT STATUS 10/26/2017 NY JONES MD Ot Z88.6 ALLERGY STATUS TO ANALGESIC AGENT STATUS 10/26/2017 NY JONES MD, Ot Z88.8 ALLERGY STATUS TO OTH DRUG/MEDS/BIOL SUB 10/26/2017 NY JONES MD, Ot Z98.51 TUBAL LIGATION STATUS 11/04/2017 JD DEWITT MD, Ot E03.9 HYPOTHYROIDISM, UNSPECIFIED 11/04/2017 JD DEWITT MD, Ot E66.9 OBESITY, UNSPECIFIED 11/04/2017 JD DEWITT MD, Ot E78.5 HYPERLIPIDEMIA, UNSPECIFIED 11/04/2017 JD DEWITT MD Ot G47.33 OBSTRUCTIVE SLEEP APNEA (ADULT) (PEDIATR 11/04/2017 JD DEWITT MD Ot I10 ESSENTIAL (PRIMARY) HYPERTENSION 11/04/2017 JD DEWITT MD, Ot I25.10 ATHSCL HEART DISEASE OF [place] CORONARY 11/04/2017 JD DEWITT MD, Ot I48.1 PERSISTENT ATRIAL FIBRILLATION 11/04/2017 JD DEWITT MD Ot 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 11/04/2017 JD DEWITT MD Ot J44.9 CHRONIC OBSTRUCTIVE PULMONARY DISEASE, U 11/04/2017 JD DEWITT MD Ot K59.00 CONSTIPATION, UNSPECIFIED 11/04/2017 JD DEWITT MD Ot K62.89 OTHER SPECIFIED DISEASES OF ANUS AND REC 11/04/2017 JD DEWITT MD Ot R00.0 TACHYCARDIA, UNSPECIFIED 11/04/2017 JD DEWITT MD Ot R07.9 CHEST PAIN, UNSPECIFIED 11/04/2017 JD DEWITT MD Ot R19.7 DIARRHEA, UNSPECIFIED 11/04/2017 JD DEWITT MD, Ot R42 DIZZINESS AND GIDDINESS 11/04/2017 JD DEWITT MD, Ot R73.03 PREDIABETES 11/04/2017 JD DEWITT MD, Ot S00.83XA CONTUSION OF OTHER PART OF HEAD, INITIAL 11/04/2017 JD DEWITT MD, Ot S52.591A OTH FRACTURES OF LOWER END OF RIGHT RADI 11/04/2017 JD DEWITT MD, Ot W18.39XA OTHER FALL ON SAME LEVEL, INITIAL ENCOUN 11/04/2017 JD DEWITT MD, Ot Z68.37 BODY MASS INDEX (BMI) 37.0-37.9, ADULT 11/04/2017 JD DEWITT MD, Ot Z87.891 PERSONAL HISTORY OF NICOTINE DEPENDENCE 11/04/2017 JD DEWITT MD, Ot Z88.0 ALLERGY STATUS TO PENICILLIN 11/04/2017 JD DEWITT MD, Ot Z88.5 ALLERGY STATUS TO NARCOTIC AGENT STATUS 11/04/2017 JD DEWITT MD, Ot Z88.6 ALLERGY STATUS TO ANALGESIC AGENT STATUS 11/04/2017 JD DEWITT MD, Ot Z88.8 ALLERGY STATUS TO OTH DRUG/MEDS/BIOL SUB 11/04/2017 JD DEWITT MD, Ot E03.9 HYPOTHYROIDISM, UNSPECIFIED 11/04/2017 JD DEWITT MD, Ot E66.9 OBESITY, UNSPECIFIED 11/04/2017 JD DEWITT MD, Ot E78.5 HYPERLIPIDEMIA, UNSPECIFIED 11/04/2017 JD DEWITT MD, Ot G47.33 OBSTRUCTIVE SLEEP APNEA (ADULT) (PEDIATR 11/04/2017 JD DEWITT MD, Ot I10 ESSENTIAL (PRIMARY) HYPERTENSION 11/04/2017 JD DEWITT MD, Ot I25.10 ATHSCL HEART DISEASE OF [place] CORONARY 11/04/2017 JD DEWITT MD, Ot I48.1 PERSISTENT ATRIAL FIBRILLATION 11/04/2017 JD DEWITT MD, Ot 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 11/04/2017 JD DEWITT MD, Ot J44.9 CHRONIC OBSTRUCTIVE PULMONARY DISEASE, U 11/04/2017 RENATE MD, JD N Ot K59.00 CONSTIPATION, UNSPECIFIED 11/04/2017 JD DEWITT MD Ot K62.89 OTHER SPECIFIED DISEASES OF ANUS AND REC 11/04/2017 JD DEWITT MD Ot R00.0 TACHYCARDIA, UNSPECIFIED 11/04/2017 JD DEWITT MD Ot R07.9 CHEST PAIN, UNSPECIFIED 11/04/2017 JD DEWITT MD Ot R19.7 DIARRHEA, UNSPECIFIED 11/04/2017 JD DEWITT MD Ot R42 DIZZINESS AND GIDDINESS 11/04/2017 JD DEWITT MD Ot R73.03 PREDIABETES 11/04/2017 JD DEWITT MD Ot S00.83XA CONTUSION OF OTHER PART OF HEAD, INITIAL 11/04/2017 JD DEWITT MD Ot S52.591A OTH FRACTURES OF LOWER END OF RIGHT RADI 11/04/2017 JD DEWITT MD Ot W18.39XA OTHER FALL ON SAME LEVEL, INITIAL ENCOUN 11/04/2017 JD DEWITT MD Ot Z68.37 BODY MASS INDEX (BMI) 37.0-37.9, ADULT 11/04/2017 JD DEWITT MD Ot Z87.891 PERSONAL HISTORY OF NICOTINE DEPENDENCE 11/04/2017 JD DEWITT MD Ot Z88.0 ALLERGY STATUS TO PENICILLIN 11/04/2017 JD DEWITT MD Ot Z88.5 ALLERGY STATUS TO NARCOTIC AGENT STATUS 11/04/2017 JD DEWITT MD Ot Z88.6 ALLERGY STATUS TO ANALGESIC AGENT STATUS 11/04/2017 JD DEWITT MD Ot Z88.8 ALLERGY STATUS TO OT DRUG/MEDS/BIOL SUB 11/22/2017 Tremaine CARLSON MD Ot I48.91 UNSPECIFIED ATRIAL FIBRILLATION 12/07/2017 Tremaine CARLSON MD Ot I48.91 UNSPECIFIED ATRIAL FIBRILLATION 12/15/2017 Tremaine CARLSON MD Ot I48.91 UNSPECIFIED ATRIAL FIBRILLATION 02/07/2018 Tremaine CARLSON MD Ot I48.91 UNSPECIFIED ATRIAL FIBRILLATION 02/08/2018 Tremaine CARLSON MD Ot I48.91 UNSPECIFIED ATRIAL FIBRILLATION 05/06/2018 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 Ot 715.36 LOC OSTEOARTH NOS-L/LEG 05/06/2018 WINSTON ERVIN, ZEB Clark Ot V76.12 OTH SCREEN MAMMO-MALIGN NEOPLASM OF [place] 05/06/2018 BOY MERCADO APRN Ot I48.91 UNSPECIFIED ATRIAL FIBRILLATION 05/06/2018 ANSON POMPA MD Ot E78.2 MIXED HYPERLIPIDEMIA 05/06/2018 ANSON POMPA MD Ot G47.33 OBSTRUCTIVE SLEEP APNEA (ADULT) (PEDIATR 05/06/2018 ANSON POMPA MD Ot I10 ESSENTIAL (PRIMARY) HYPERTENSION 05/06/2018 ANSON POMPA MD Ot I48.0 PAROXYSMAL ATRIAL FIBRILLATION 05/06/2018 ANSON POMPA MD Ot R07.89 OTHER CHEST PAIN 05/06/2018 BOY MERCADO APRN Ot M85.88 OTH DISRD OF BONE DENSITY AND STRUCTURE, 05/06/2018 BOY MERCADO APRN Ot Z78.0 ASYMPTOMATIC MENOPAUSAL STATE 05/06/2018 PERI MABRY Ot E78.2 MIXED HYPERLIPIDEMIA 05/06/2018 PERI MABRY Ot I10 ESSENTIAL (PRIMARY) HYPERTENSION 05/06/2018 PERI MABRY Ot I25.10 ATHSCL HEART DISEASE OF [place] CORONARY 05/06/2018 PERI MABRY Ot 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 Results Test [...] 13:25 Hemoglobin A1c 5.6 % 4.8-5.6 Thyroid Tripp Profile - 06/29/16 13:25 TSH 4.150 uIU/mL [...] Complete urinalysis with reflex to culture YES [facility] Bacterial urine culture - 12/23/16 20:01 URINE CULTURE RESULTS <10,000/ML [facility] Urine Culture, Routine - 02/01/17 13:15 Urine [...] poor plasma bycoagulation assay 33 s 24-35 Complete blood count (CBC) with automated white blood cell (WBC) differential - 11/02/17 11:30 Blood leukocytes automated count (number/volume) 4.7 10*3/uL 4.3-11.0 Blood erythrocytes automated count (number/volume) 4.48 10*6/uL 4.35-5.85 Venous blood hemoglobin measurement (mass/volume) 11.7 g/dL 11.5-16.0 Blood hematocrit (volume fraction) 36 % 35-52 Automated erythrocyte mean corpuscular volume 81 [foz_us] 80-99 Automated erythrocyte mean corpuscular hemoglobin (mass per erythrocyte) 26 pg 25-34 Automated erythrocyte mean corpuscular hemoglobin concentration measurement ( mass/volume) 32 g/dL 32-36 Automated erythrocyte distribution width ratio 14.3 % 10.0-14.5 Automated blood platelet count (count/volume) 235 10*3/uL 130-400 Automated blood platelet mean volume measurement 8.9 [foz_us] 7.4-10.4 Automated blood neutrophils/100 leukocytes 60 % 42-75 Automated blood lymphocytes/100 leukocytes 23 % 12-44 Blood monocytes/100 leukocytes 10 % 0-12 Automated blood eosinophils/100 leukocytes 6 % 0-10 Automated blood basophils/100 leukocytes 1 % 0-10 Blood neutrophils automated count (number/volume) 2.9 10*3 1.8-7.8 Blood lymphocytes automated count (number/volume) 1.1 10*3 1.0-4.0 Blood monocytes automated count (number/volume) 0.5 10*3 0.0-1.0 Automated eosinophil count 0.3 10*3/uL 0.0-0.3 Automated blood basophil count (count/volume) 0.0 10*3/uL 0.0-0.1 PT panel in platelet poor plasma by coagulation assay - 11/02/17 11:30 Prothrombin time (PT) in platelet poor plasma by coagulation assay 14.4 s 12.2-14.7 INR in platelet poor plasma or blood by coagulation assay 1.1 0.8-1.4 Activated partial thromboplastin time (aPTT) in platelet poor plasma bycoagulation assay - 11/02/17 11:30 Activated partial thromboplastin time (aPTT) in platelet poor plasma bycoagulation assay 28 s 24-35 Comprehensive metabolic panel - 11/02/17 11:30 Serum or plasma sodium measurement (moles/volume) 141 mmol/L 135-145 Serum or plasma potassium measurement (moles/volume) 3.9 mmol/L 3.6-5.0 Serum or plasma chloride measurement (moles/volume) 106 mmol/L 98-107 Carbon dioxide 28 mmol/L 21-32 Serum or plasma anion gap determination (moles/volume) 7 mmol/L 5-14 Serum or plasma urea nitrogen measurement (mass/volume) 16 mg/dL 7-18 Serum or plasma creatinine measurement (mass/volume) 1.12 mg/dL 0.60-1.30 Serum or plasma urea nitrogen/creatinine mass ratio 14 NRG Serum or plasma creatinine measurement with calculation of estimated glomerular filtration rate 48 NRG Serum or plasma glucose measurement (mass/volume) 98 mg/dL 70-105 Serum or plasma calcium measurement (mass/volume) 9.6 mg/dL 8.5-10.1 Serum or plasma total bilirubin measurement (mass/volume) 1.6 mg/dL 0.1-1.0 Serum or plasma alkaline phosphatase measurement (enzymatic activity/volume) 63 U/L 40-136 Serum or plasma aspartate aminotransferase measurement (enzymatic activity/ volume) 13 U/L 5-34 Serum or plasma alanine aminotransferase measurement (enzymatic activity/volume ) 10 U/L 0-55 Serum or plasma protein measurement (mass/volume) 6.8 g/dL 6.4-8.2 Serum or plasma albumin measurement (mass/volume) 3.9 g/dL 3.2-4.5 Magnesium - 11/02/17 11:30 Magnesium 2.3 mg/dL 1.8-2.4 Serum or plasma troponin i.cardiac measurement (mass/volume) - 11/02/17 11:30 Serum or plasma troponin i.cardiac measurement (mass/volume) < ng/ mL <0.30 Serum or plasma lithium measurement (moles/volume) - 11/02/17 11:30 BNP level 235.9 pg/mL <100.0 Myoglobin, serum - 11/02/17 11:30 Myoglobin, serum 60.1 ng/mL 10.0-92.0 Serum or plasma troponin i.cardiac measurement (mass/volume) - 11/02/17 21:38 Serum or plasma troponin i.cardiac measurement (mass/volume) < ng/ mL <0.30 Automated blood complete blood count (hemogram) panel - 11/03/17 03:50 Blood leukocytes automated count (number/volume) 5.1 10*3/uL 4.3-11.0 Blood erythrocytes automated count (number/volume) 4.18 10*6/uL 4.35-5.85 Venous blood hemoglobin measurement (mass/volume) 10.8 g/dL 11.5-16.0 Blood hematocrit (volume fraction) 34 % 35-52 Automated erythrocyte mean corpuscular volume 80 [foz_us] 80-99 Automated erythrocyte mean corpuscular hemoglobin (mass per erythrocyte) 26 pg 25-34 Automated erythrocyte mean corpuscular hemoglobin concentration measurement ( mass/volume) 32 g/dL 32-36 Automated erythrocyte distribution width ratio 14.4 % 10.0-14.5 Automated blood platelet count (count/volume) 241 10*3/uL 130-400 Automated blood platelet mean volume measurement 9.1 [foz_us] 7.4-10.4 Comprehensive metabolic panel - 11/03/17 03:50 Serum or plasma sodium measurement (moles/volume) 140 mmol/L 135-145 Serum or plasma potassium measurement (moles/volume) 3.3 mmol/L 3.6-5.0 Serum or plasma chloride measurement (moles/volume) 107 mmol/L 98-107 Carbon dioxide 23 mmol/L 21-32 Serum or plasma anion gap determination (moles/volume) 10 mmol/L 5-14 Serum or plasma urea nitrogen measurement (mass/volume) 14 mg/dL 7-18 Serum or plasma creatinine measurement (mass/volume) 0.94 mg/dL 0.60-1.30 Serum or plasma urea nitrogen/creatinine mass ratio 15 NRG Serum or plasma creatinine measurement with calculation of estimated glomerular filtration rate 59 NRG Serum or plasma glucose measurement (mass/volume) 90 mg/dL 70-105 Serum or plasma calcium measurement (mass/volume) 9.1 mg/dL 8.5-10.1 Serum or plasma total bilirubin measurement (mass/volume) 1.4 mg/dL 0.1-1.0 Serum or plasma alkaline phosphatase measurement (enzymatic activity/volume) 54 U/L 40-136 Serum or plasma aspartate aminotransferase measurement (enzymatic activity/ volume) 13 U/L 5-34 Serum or plasma alanine aminotransferase measurement (enzymatic activity/volume ) 9 U/L 0-55 Serum or plasma protein measurement (mass/volume) 6.1 g/dL 6.4-8.2 Serum or plasma albumin measurement (mass/volume) 3.6 g/dL 3.2-4.5 Lipid 1996 panel - 11/03/17 03:50 Serum or plasma triglyceride measurement (mass/volume) 82 mg/dL <150 Serum or plasma cholesterol measurement (mass/volume) 141 mg/dL < 200 Serum or plasma cholesterol in HDL measurement (mass/volume) 54 mg/ dL 40-60 Cholesterol in LDL [mass/volume] in serum or plasma by direct assay 67 mg/dL 1-129 Serum or plasma cholesterol in VLDL measurement (mass/volume) 16 mg/ dL 5-40 THYROID STIMULATING HORMONE - 11/03/17 03:50 THYROID STIMULATING HORMONE 2.79 u[iU]/mL 0.35-4.94 Acute hepatitis panel - 11/03/17 03:50 Confirmatory quantitative serum or plasma hepatitis B virus surface antigen measurement Non-Reactive Non-Reactive Hepatitis A virus IgM antibody assay Non-Reactive Non- Reactive Hepatitis B virus core IgM antibody assay Non-Reactive Non-Reactive Serum hepatitis C virus antibody detection Non-Reactive Non-Reactive Automated blood complete blood count (hemogram) panel - 11/04/17 06:25 Blood leukocytes automated count (number/volume) 4.6 10*3/uL 4.3-11.0 Blood erythrocytes automated count (number/volume) 4.41 10*6/uL 4.35-5.85 Venous blood hemoglobin measurement (mass/volume) 11.2 g/dL 11.5-16.0 Blood hematocrit (volume fraction) 35 % 35-52 Automated erythrocyte mean corpuscular volume 80 [foz_us] 80-99 Automated erythrocyte mean corpuscular hemoglobin (mass per erythrocyte) 25 pg 25-34 Automated erythrocyte mean corpuscular hemoglobin concentration measurement ( mass/volume) 32 g/dL 32-36 Automated erythrocyte distribution width ratio 14.2 % 10.0-14.5 Automated blood platelet count (count/volume) 265 10*3/uL 130-400 Automated blood platelet mean volume measurement 8.9 [foz_us] 7.4-10.4 Whole blood basic metabolic panel - 11/04/17 06:25 Serum or plasma sodium measurement (moles/volume) 140 mmol/L 135-145 Serum or plasma potassium measurement (moles/volume) 3.3 mmol/L 3.6-5.0 Serum or plasma chloride measurement (moles/volume) 104 mmol/L 98-107 Carbon dioxide 27 mmol/L 21-32 Serum or plasma anion gap determination (moles/volume) 9 mmol/L 5-14 Serum or plasma urea nitrogen measurement (mass/volume) 16 mg/dL 7-18 Serum or plasma creatinine measurement (mass/volume) 1.17 mg/dL 0.60-1.30 Serum or plasma urea nitrogen/creatinine mass ratio 14 NRG Serum or plasma creatinine measurement with calculation of estimated glomerular filtration rate 46 NRG Serum or plasma glucose measurement (mass/volume) 92 mg/dL 70-105 Serum or plasma calcium measurement (mass/volume) 9.4 mg/dL 8.5-10.1 Encounters ACCT No. Visit Date/Time Discharge Status Pt. Type Provider Facility Loc./Unit Complaint [id number] 02/08/2018 10:00:00 02/08/2018 23:59:59 CLS Preadmit Tremaine CARLSON MD [facility] CARD R00.0 TACHYCARDIA, UNSPECIFIED [id number] 12/03/2017 10:30:00 02/07/2018 00:01:00 DIS Outpatient Tremaine CARLSON MD [facility] CARD R00.0 TACHYCARDIA, UNSPECIFIED [id number] 11/02/2017 15:13:00 11/04/2017 18:30:00 DIS Inpatient RENATE ERVIN, JD Ibanez [facility] 4TH CP W/EXERTION CONSTIPATION [id number] 10/23/2017 15:38:00 10/23/2017 18:34:00 DIS Emergency ROBERT ERVIN, [place] [facility] ER FALL [id number] 08/25/2017 11:14:00 08/25/2017 23:59:59 CLS Outpatient PERI MABRY [facility] CARD I25.10 CAD [id number] 07/28/2017 19:15:00 07/29/2017 14:05:00 DIS Inpatient TANG CRALOS MD [facility] ICU CHEST PAIN,CHF,CHRONIC AFIB,HTN [id number] 12/24/2016 10:07:00 12/24/2016 23:59:59 CLS Outpatient BOY MERCADO APRN [facility] RAD Z78.0 [id number] 12/23/2016 18:21:00 12/23/2016 20:58:00 DIS Emergency EV DARBY TEST AUTOMATION ARCHITECT [facility] ER RT SIDED RIB/BACK/KNEE PAIN [id number] 09/24/2015 13:52:00 09/30/2015 13:32:00 DIS Inpatient TANG CARLOS MD [facility] 4TH INFLUENZA LIKE ILLNESS A- FIB W/RVR [id number] 08/21/2015 07:29:00 08/21/2015 15:05:00 DIS Outpatient ANSON POMPA MD [facility] CATH ABNORMAL STRESS,HLP, OBESITY [id number] 07/10/2015 07:53:00 07/10/2015 23:59:59 CLS Outpatient ANSON POMPA MD [facility] CARD AF,CHEST PAIN SYNDROME, HTN,HYPERLIPIDEMIA,JANELLE [id number] 06/21/2015 14:13:00 06/21/2015 23:59:59 CLS Outpatient BOY MERCADO TEST AUTOMATION ARCHITECT [facility] CARD AFIB [id number] 03/28/2014 07:20:00 03/28/2014 23:59:59 CLS Outpatient WINSTON ERVIN, ZEB Clark [facility] RAD SCREENING [id number] 02/19/2014 18:07:00 02/19/2014 23:59:59 CLS Outpatient 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 [facility] RAD OA [id number] 01/04/2014 23:31:00 01/05/2014 00:56:00 DIS Emergency YARITZA LÓPEZ DO [facility] ER RT KNEE PAIN [id number] 10/17/2015 00:07:00 ACT Inpatient ANSON POMPA MD [facility] ICU CHEST PAIN;CHRONIC A-FIB [id number] 06/21/2015 14:07:00 Document Registration [id number] 06/21/2015 14:07:00 Document Registration [id number] 04/15/2012 08:52:00 Document Registration [id number] 12/10/2011 09:16:00 Document Registration [id number] 11/06/2011 10:24:00 Document Registration [id number] 10/21/2011 21:36:00 Document Registration [id number] 06/03/2011 18:16:00 Document Registration [id number] 03/25/2010 09:39:00 Document Registration [id number] 01/23/2010 12:53:00 Document Registration [id number] 06/30/2016 13:06:00 Document Registration [id number] 01/21/2018 08:20:00 01/21/2018 23:59:59 [facility] BOY Hernandez [facility] [id number] 08/30/2017 11:20:00 Document Registration [id number] 02/03/2017 04:07:00 Document Registration
[2018-06-26] MEDS ORDERED: ASPIRIN 81 MG CHEW (CHILDREN'S ASA) PO ONE (03:30)
--- NOTE | 2018-06-26 03:34 | ED Chest Pain ---
General Chief Complaint: Chest Wall/Rib Pain Stated Complaint: CHF Source: patient, spouse Exam Limitations: no limitations History of Present Illness Date Seen by Provider: Jun 26, 2018 Time Seen by Provider: 03:22 Initial Comments The patient presents to ER by private conveyance with chief complaint of mild chest pains substernal and over the left lower chest nonradiating intermittently associated with shortness of breath, orthopnea, dry nonproductive cough and feeling of chest congestion for the past 3 or 4 days. She's not had any fevers runny nose or chills. No sweats or nausea or vomiting. She says the pain is worse when she takes a deep inspiration. She does have a history of congestive heart failure followed by Dr. Savage. She said she had a heart catheterization in the past and everything was clean. She's never had a heart attack. She is consistent about taking her medications. She denies any weight gain she's been checking herself daily and attempt to lose weight and has been pretty stable over the last week around 240 pounds. She does have a history of atrial fibrillation on Eliquis. Allergies and Home Medications Allergies Coded Allergies: Penicillins (Verified Allergy, Mild, 01/04/14) Qjvxlgh-Jmb-Mpl Reductase Inhibitor (Verified Allergy, Mild, 01/04/14) codeine (Verified Allergy, Mild, 01/04/14) opium tincture (Verified Allergy, Mild, 01/04/14) tramadol (Verified Allergy, Mild, 01/04/14) Home Medications Amlodipine Besylate 5 Mg Tablet, 5 MG PO DAILY Prescribed by: JD DEWITT on 11/04/17 0930 Apixaban 5 Mg Tablet, 5 MG PO BID, (Reported) LAST FILLED 04/23/17 #180 Aspirin 81 Mg Tablet.dr, 81 MG PO DAILY, (Reported) Atorvastatin Calcium 10 Mg Tablet, 10 MG PO DAILY, (Reported) LAST FILLED 04/23/17 #90 Benzonatate 100 Mg Capsule, 100 MG PO Q6H PRN for COUGH Prescribed by: ZAC WATTS on 06/26/18 0505 Hydrochlorothiazide 25 Mg Tablet, 25 MG PO DAILY, (Reported) LAST FILLED 05/17/17 #30 Levothyroxine Sodium 125 Mcg Tablet, 125 MCG PO DAILY, (Reported) Lisinopril 40 Mg Tablet, 40 MG PO DAILY Prescribed by: JD DEWITT on 11/04/17929 Metoprolol Succinate 25 Mg Tab.er.24h, 50 MG PO DAILY, (Reported) [place]-3/Dha/Epa/Fish Oil 1 Each Capsule, 1,000 MG PO BID, (Reported) Polyethylene Glycol 3350 17 Gm Powd.pack, 17 GM PO TID Prescribed by: JD DEWITT on 11/04/17929 Tizanidine HCl 4 Mg Tablet, 4 MG PO TID PRN for MUSCLE SPASMS, (Reported) Vits A and D/White Pet/Lanolin 42.5 Gm Oint...g., 42.5 GM TP TID PRN for Perineal skin irritation Prescribed by: JD DEWITT on 11/04/17929 Patient Home Medication List Home Medication List Reviewed: Yes Review of Systems Review of Systems Constitutional: No chills, No diaphoresis, No fever, No malaise; weakness EENTM: No Blurred Vision, No Double Vision Respiratory: Cough, Orthopnea, Shortness of Air, SOA With Exertion; Denies Wheezing Cardiovascular: See HPI, Chest Pain; Denies Edema; Lightheadedness; Denies Palpitations, Denies Syncope Gastrointestinal: Denies Abdomen Distended, Denies Abdominal Pain, Denies Constipated, Denies Diarrhea; Nausea (occ); Denies Poor Fluid Intake, Denies Vomiting Genitourinary: Denies Burning, Denies Discharge Musculoskeletal: No back pain, No joint pain Skin: No pruritus, No rash Psychiatric/Neurological: Denies Headache, Denies Numbness, Denies Paresthesia Past Dpnsoce-Crhimy-Oonxnz Hx Patient Social History Alcohol Use: Occasionally Uses Alcohol Beverage of Choice: Rum Recreational Drug Use: No Smoking Status: Former Smoker Type Used: Cigarettes Recent Foreign Travel: No Contact w/Someone Who Travel: No Recent Hopitalizations: No Immunizations Up To Date Tetanus Booster (TDap): Unknown Date of Pneumonia Vaccine: Jul 18, 2015 Date of Influenza Vaccine: Jul 18, 2015 Seasonal Allergies Seasonal Allergies: Yes Past Medical History Surgeries: Yes (DENTAL, HEMORRHOIDECTOMY, CARDIAC CATH X 2 ; CATARACTS) Cardiac, Eye Surgery, Rectal, Tubal Ligation Respiratory: Yes (PNEUMONIA A CHILD; ) Asthma, Pneumonia, Sleep Apnea Currently Using CPAP: No (PATIENT WEARS 02 AT NIGHT (3L/NC) ) Currently Using BIPAP: No Cardiac: Yes (CLEAN CATH 09/03, congestive heart failure) Atrial Fibrillation, Coronary Artery Disease, High Cholesterol, Hypertension Neurological: Yes Neuropathy 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 Disorders: No 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 Disorders: 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 Sexually Transmitted Disease: No HIV/AIDS: No Genitourinary: Yes (INCONTINENCE) Bladder Infection, UTI-Chronic Gastrointestinal: Yes Gastroesophageal Reflux, Chronic Constipation, Hemorrhoids, Irritable Bowel Musculoskeletal: Yes Osteoporosis, Arthritis, Fibromyalgia, Chronic Back Pain Endocrine: Yes (HYPOGLYCEMIA; OBESITY) Hypothyroidsim HEENT: Yes (WEARS GLASSES) Cataract Hearing Impairment: Hard of Hearing Cancer: No Psychosocial: Yes Anxiety Integumentary: No Blood Disorders: No Family Medical History Dementia 19 FATHER Drug abuse G8 BROTHER G8 SISTER FH: pancreatic cancer 19 MOTHER ( OF PANCREATIC CA AGE 67) Thyroid disease 19 MOTHER Physical Exam Vital Signs Vital Signs - First Documented 06/26/18 03:20 Temp 96.7 Pulse 90 Resp 18 B/P (MAP) 154/90 (111) Pulse Ox 97 O2 Delivery Room Air Capillary Refill : Less Than 3 Seconds Height, Weight, BMI Height: 5'7.00" Weight: 235lbs. 11.2oz. 106.489025ye; 37.3 BMI Method:Stated General Appearance: No Apparent Distress, Obese HEENT: PERRL/EOMI, TMs Normal, Normal ENT Inspection, Pharynx Normal, Moist Mucous Membranes Neck: Full Range of Motion, Normal Inspection, Non Tender, Supple Respiratory: Lungs Clear, Normal Breath Sounds, No Accessory Muscle Use, No Respiratory Distress, Other (chest pain reproducible by deep inspiration or direct palpation over the sternum) Cardiovascular: No Gallop, No JVD, No Murmur, Normal Peripheral Pulses, Irregularly Irregular Gastrointestinal: Normal Bowel Sounds, Non Tender, Soft Extremity: Normal Capillary Refill, Non Tender, No Calf Tenderness Neurologic/Psychiatric: Alert, Oriented x3 Skin: Normal Color, Warm/Dry Progress/Results/Core Measures Results/Orders Lab Results Laboratory Tests Test 06/26/18 03:35 06/26/18 04:47 Range/Units White Blood Count 4.0 L 4.3-11.0 10^3/uL Red Blood Count 4.49 4.35-5.85 10^6/uL Hemoglobin 11.9 11.5-16.0 G/DL Hematocrit 37 35-52 % Mean Corpuscular Volume 82 80-99 FL Mean Corpuscular Hemoglobin 27 25-34 PG Mean Corpuscular Hemoglobin Concent 32 32-36 G/DL Red Cell Distribution Width 14.2 10.0-14.5 % Platelet Count 207 130-400 10^3/uL Mean Platelet Volume 8.9 7.4-10.4 FL Neutrophils (%) (Auto) 51 42-75 % Lymphocytes (%) (Auto) 33 12-44 % Monocytes (%) (Auto) 11 0-12 % Eosinophils (%) (Auto) 5 0-10 % Basophils (%) (Auto) 0 0-10 % Neutrophils # (Auto) 2.1 1.8-7.8 X 10^3 Lymphocytes # (Auto) 1.3 1.0-4.0 X 10^3 Monocytes # (Auto) 0.5 0.0-1.0 X 10^3 Eosinophils # (Auto) 0.2 0.0-0.3 10^3/uL Basophils # (Auto) 0.0 0.0-0.1 10^3/uL Prothrombin Time 13.3 12.2-14.7 SEC INR Comment 1.0 0.8-1.4 Activated Partial Thromboplast Time 33 24-35 SEC Sodium Level 139 135-145 MMOL/L Potassium Level 3.3 L 3.6-5.0 MMOL/L Chloride Level 103 98-107 MMOL/L Carbon Dioxide Level 24 21-32 MMOL/L Anion Gap 12 5-14 MMOL/L Blood Urea Nitrogen 30 H 7-18 MG/DL Creatinine 1.19 0.60-1.30 MG/DL Estimat Glomerular Filtration Rate 45 BUN/Creatinine Ratio 25 Glucose Level 119 H 70-105 MG/DL Calcium Level 9.4 8.5-10.1 MG/DL Corrected Calcium 9.4 8.5-10.1 MG/DL Magnesium Level 2.3 1.8-2.4 MG/DL Total Bilirubin 0.5 0.1-1.0 MG/DL Aspartate Amino Transf (AST/SGOT) 18 5-34 U/L Alanine Aminotransferase (ALT/SGPT) 12 0-55 U/L Alkaline Phosphatase 82 40-136 U/L Myoglobin 42.8 10.0-92.0 NG/ML Troponin I < 0.30 < 0.30 <0.30 NG/ML B-Type Natriuretic Peptide 104.3 H <100.0 PG/ML Total Protein 6.9 6.4-8.2 GM/DL Albumin 4.0 3.2-4.5 GM/DL My Orders Orders - ZAC WATTS Cbc With Automated Diff (06/26/18 03:26) Magnesium (06/26/18 03:26) Ekg Tracing (06/26/18 03:) Cardiac Profile 1 (06/26/18:) Comprehensive Metabolic Panel (06/26/18 03:) Myoglobin Serum (06/26/18:) Protime With Inr (06/26/18:) Partial Thromboplastin Time (06/26/18:) O2 (06/26/18:) Monitor-Rhythm Ecg Trace Only (06/26/18:) Lipid Panel (06/27/18 06:00) Aspirin Chewable Tablet (Baby Aspirin Ch (06/26/18 03:30) Saline Lock/Iv-Start (06/26/18 03:26) BNP (06/26/18 03:) Chest Pa/Lat (2 View) (06/26/18:) Troponin I (06/26/18 05:00) Medications Given in ED Current Medications Medications Dose Ordered Sig/Kareem Route Start Time Stop Time Status Last Admin Dose Admin Aspirin 324 mg ONCE ONCE PO 06/26/18 03:30 06/26/18 03:32 DC 06/26/18 03:40 324 MG Vital Signs/I&O 06/26/18 06/26/18 03:20 03:20 Temp 96.7 Pulse 90 Resp 18 B/P (MAP) 154/90 (111) Pulse Ox 97 97 O2 Delivery Room Air Room Air Progress Progress Note : Time: 03:33 Progress Note She thinks her chest pain is related to congestion as in a bad chest cold but could also be related to an exacerbation of heart failure. We'll obtain chest x- ray, labs included BNP and give her 324 aspirin. She is not really having any chest discomfort at this time so we will not do any nitroglycerin or morphine. Her vital signs are unremarkable with a heart rate and 70s to 80s on arrival after walking to the room. She is in atrial fibrillation on the monitor. Her chest pain is reproducible with pushing on her chest as well as when she takes a deep breath in. She has oxygen saturation near 100% with a heart rate in the 60s 70s and 80s atrial fib on Eliquis so a pulmonary embolism seems fairly unlikely. She is not endorsing any GI symptoms or history of GERD or anxiety. She could also just be having chest wall tenderness secondary to all of her coughing or costochondritis. ED ACS 2 points. Low risk by the EDACS Score. If the patient also has: (1) EKG without new ischemic changes and (2) negative initial and 2-hour troponins, then this patient is safe for discharge to early outpatient follow-up investigation (or proceed to earlier inpatient testing). If EKG with ischemic changes or positive troponin, they are not low risk and require normal risk stratification. Cardiac catheterization [place] [address] Savage showing mild ectasia in the proximal LAD and slow flow nonobstructive disease. Echocardiogram Dr. Savage July 2017: [id number] increased wall thickness of the left ventricle with concentric hypertrophy and normal systolic function, EF 55-65%. Grade 1 diastolic dysfunction. Initial ECG Impression Date: Jun 26, 2018 Initial ECG Impression Time: 03:27 Initial ECG Rate: 84 Initial ECG Rhythm: A Fib/Flutter Initial ECG Intervals: QT (473) Initial ECG Impression: Atrial Fibrillation Initial ECG Comparisson: Unchanged Comment Negative for ST elevation or depression. Diagnostic Imaging Diagonstic Imaging: Xray Plain Films/CT/US/NM/MRI: chest (2v) Comments No pulmonary edema or any acute cardiopulmonary processes noted on a 2 view chest x-ray. Reviewed: Reviewed by Me Departure Impression Primary Impression: Bronchitis Disposition: 01 HOME, SELF-CARE Condition: Stable Departure-Patient Inst. Decision time for Depature: 05:18 Referrals: MELISSA WOOTEN DO (PCP) Primary Care Physician BOY MERCADO APRN (Family) Primary Care Physician Patient Instructions: Acute Bronchitis, Adult (DC) Add. Discharge Instructions: Drink plenty of fluids use humidifiers and vapor rubs or cough. You can take one capsule of Tessalon Perles every 6 hours as needed for the cough. You can also use Mucinex as needed. Follow-up with primary care. All discharge instructions reviewed with patient and/or family. Voiced understanding. Scripts Benzonatate (TESSALON PERLES) 100 Mg Capsule 100 MG PO Q6H PRN for COUGH, #20 CAP 0 Refills Prov: ZAC WATTS 06/26/18 ZAC WATTS Jun 26, 2018 03:34
[2018-06-26 03:43] LABS: BASOPHILS % (AUTO) 0 % (0-10); EOSINOPHILS # (AUTO) 0.2 10^3/uL (0.0-0.3); EOSINOPHILS % (AUTO) 5 % (0-10); HEMATOCRIT 37 % (35-52); HEMOGLOBIN 11.9 G/DL (11.5-16.0); LYMPHOCYTES # (AUTO) 1.3 X 10^3 (1.0-4.0); LYMPHOCYTES % (AUTO) 33 % (12-44); MEAN CORPUSCULAR HEMOGLOBIN 27 PG (25-34); MEAN CORPUSCULAR HGB CONC 32 G/DL (32-36); MEAN CORPUSCULAR VOLUME 82 FL (80-99); MEAN PLATELET VOLUME 8.9 FL (7.4-10.4); MONOCYTES # (AUTO) 0.5 X 10^3 (0.0-1.0); MONOCYTES % (AUTO) 11 % (0-12); NEUTROPHILS # (AUTO) 2.1 X 10^3 (1.8-7.8); NEUTROPHILS % (AUTO) 51 % (42-75); PLATELET COUNT 207 10^3/uL (130-400); RED BLOOD COUNT 4.49 10^6/uL (4.35-5.85); RED CELL DISTRIBUTION WIDTH 14.2 % (10.0-14.5)
[2018-06-26 03:58] LABS: PROTHROMBIN TIME PATIENT 13.3 SEC (12.2-14.7)
[2018-06-26 04:10] LABS: ALANINE AMINOTRANSFERASE 12 U/L (0-55); ALKALINE PHOSPHATASE 82 U/L (40-136); BILIRUBIN,TOTAL 0.5 MG/DL (0.1-1.0); BUN/CREATININE RATIO 25; CALCIUM 9.4 MG/DL (8.5-10.1); CARBON DIOXIDE 24 MMOL/L (21-32); CHLORIDE 103 MMOL/L (98-107); CREATININE SERUM 1.19 MG/DL (0.60-1.30); GFR ESTIMATED 45; GLUCOSE 119 MG/DL (70-105); MAGNESIUM 2.3 MG/DL (1.8-2.4); POTASSIUM 3.3 MMOL/L (3.6-5.0); SODIUM 139 MMOL/L (135-145); TOTAL PROTEIN 6.9 GM/DL (6.4-8.2)
[2018-06-26 04:20] LABS: MYOGLOBIN SERUM 42.8 NG/ML (10.0-92.0)
[2018-06-26] MEDS ORDERED: BENZ100C18 PO (05:05)
[2018-06-26 05:25] VITALS: BP 165/92
--- NOTE | 2018-06-26 06:52 | Diagnostic Imaging Report ---
INDICATION: Cough, congestion, and shortness of breath. PA and lateral views of the chest were obtained. Comparison is made with prior examination from 11/02/2017. FINDINGS: The heart size, mediastinal configuration, and pulmonary vascularity are within normal limits. There is no pleural effusion, pneumothorax, or pneumonia. The osseous structures are unremarkable. IMPRESSION: No acute cardiopulmonary abnormality. Dictated by: Dictated on workstation # [id number]
== END 2018-06-26 05:22 | disposition home or self-care (01) ==
LOC: EDUNIT# 03:14 → ER 03:16
DX: J45.909 Unspecified asthma, uncomplicated (principal); I11.0 Hypertensive heart disease with heart failure; I50.9 Heart failure, unspecified; I48.91 Unspecified atrial fibrillation; I25.10 Atherosclerotic heart disease of native coronary artery without angina pectoris; K21.9 Gastro-esophageal reflux disease without esophagitis; E78.00 Pure hypercholesterolemia, unspecified; E66.9 Obesity, unspecified; G47.30 Sleep apnea, unspecified; E03.9 Hypothyroidism, unspecified; M81.0 Age-related osteoporosis without current pathological fracture; F41.9 Anxiety disorder, unspecified; Z87.01 Personal history of pneumonia (recurrent); Z87.19 Personal history of other diseases of the digestive system; Z80.0 Family history of malignant neoplasm of digestive organs; Z68.37 Body mass index [BMI] 37.0-37.9, adult; Z87.440 Personal history of urinary (tract) infections; Z90.89 Acquired absence of other organs; Z87.448 Personal history of other diseases of urinary system; Z98.51 Tubal ligation status; Z87.891 Personal history of nicotine dependence; Z95.9 Presence of cardiac and vascular implant and graft, unspecified; Z88.0 Allergy status to penicillin; Z88.5 Allergy status to narcotic agent; Z88.8 Allergy status to other drugs, medicaments and biological substances; Z79.01 Long term (current) use of anticoagulants
CPT/HCPCS: 36415; 71046; 80053; 83735; 83874; 83880; 84484; 85025; 85610; 85730; 93005; 93041

== ENCOUNTER → 2018-09-12 | Outpatient (CLI) | payer MEDICARE, MEDICAID ==
[~2018-09-12] MED LIST changes: -AMLO10TA6 PO; +AMLO10TA7 PO; -AMLO5TAB7 PO; +AMLO5TAB9 PO; +BENZ100C18 PO
--- NOTE | 2018-09-12 17:51 | Diagnostic Imaging Report ---
INDICATION: Neck pain. Three views were obtained FINDINGS: The alignment of the cervical spine is grossly normal. The vertebral body heights are well maintained. There is multilevel degenerative disc disease with some posterior facet arthropathy. There is no fracture or traumatic subluxation. The odontoid is intact and lateral masses are well aligned. Prevertebral soft tissues are within normal limits. IMPRESSION: Cervical spondylosis and multilevel degenerative disc disease, otherwise unremarkable. Dictated by: Dictated on workstation # [id number]
== END ==
LOC: RAD 13:00
PROVIDERS: ATTEND Nurse Practitioner Family
DX: M50.30 Other cervical disc degeneration, unspecified cervical region (principal); M47.812 Spondylosis without myelopathy or radiculopathy, cervical region
CPT/HCPCS: 72040

== ENCOUNTER → 2018-12-30 | Outpatient (CLI) | payer MEDICARE, MEDICAID ==
[~2018-12-30] MED LIST changes: +SENN-229 PO; -SENN1TAB7 PO
--- NOTE | 2018-12-30 16:46 | Diagnostic Imaging Report ---
INDICATION: PRODUCTIVE COUGH, CHEST CONGESTION X 4 WEEKS COMPARISON: 06/26/2018 FINDINGS: Frontal and lateral views of the chest demonstrate normal heart size and pulmonary vascularity. The lungs are clear. There are no signs of infiltrate, pleural effusions or pneumothoraces. The visualized osseous structures show no acute abnormalities. IMPRESSION: 1. No acute process. No signs of infiltrates, effusions or pneumothoraces. Dictated by: Dictated on workstation # [id number]
== END ==
LOC: RAD 16:00
PROVIDERS: ATTEND Nurse Practitioner Family
DX: R05 Cough (principal); R09.89 Other specified symptoms and signs involving the circulatory and respiratory systems
CPT/HCPCS: 71046

== ENCOUNTER 2019-01-04 11:00 | Outpatient (RCR) | payer MEDICARE, MEDICAID | END 2019-01-04 12:12 | disposition home or self-care (01) | PROVIDERS: ATTEND Family Medicine | DX: M54.2 Cervicalgia (principal); I10 Essential (primary) hypertension; I50.9 Heart failure, unspecified; J45.909 Unspecified asthma, uncomplicated; M81.0 Age-related osteoporosis without current pathological fracture; E03.9 Hypothyroidism, unspecified ==

== ENCOUNTER → 2019-01-11 | Outpatient (CLI) | payer MEDICARE, MEDICAID ==
[2019-01-11 12:58] LABS: BASOPHILS % (AUTO) 0 % (0-10); EOSINOPHILS # (AUTO) 0.1 10^3/uL (0.0-0.3); EOSINOPHILS % (AUTO) 3 % (0-10); HEMATOCRIT 38 % (35-52); HEMOGLOBIN 12.2 G/DL (11.5-16.0); LYMPHOCYTES # (AUTO) 1.1 X 10^3 (1.0-4.0); LYMPHOCYTES % (AUTO) 26 % (12-44); MEAN CORPUSCULAR HEMOGLOBIN 26 PG (25-34); MEAN CORPUSCULAR HGB CONC 32 G/DL (32-36); MEAN CORPUSCULAR VOLUME 81 FL (80-99); MEAN PLATELET VOLUME 8.7 FL (7.4-10.4); MONOCYTES # (AUTO) 0.4 X 10^3 (0.0-1.0); MONOCYTES % (AUTO) 9 % (0-12); NEUTROPHILS # (AUTO) 2.6 X 10^3 (1.8-7.8); NEUTROPHILS % (AUTO) 62 % (42-75); PLATELET COUNT 220 10^3/uL (130-400); RED CELL DISTRIBUTION WIDTH 14.5 % (10.0-14.5); WHITE BLOOD COUNT 4.2 10^3/uL (4.3-11.0)
[2019-01-11 13:17] LABS: CALCIUM 9.3 MG/DL (8.5-10.1); CREATININE SERUM 1.32 MG/DL (0.60-1.30); POTASSIUM 3.8 MMOL/L (3.6-5.0)
[2019-01-11 13:39] LABS: BAND NEUTROPHILS 1 %; BASOPHILS % (MANUAL) 0 %; EOSINOPHILS % (MANUAL) 3 %; LYMPHOCYTES % (MANUAL) 27 %; MONOCYTES % (MANUAL) 3 %; NEUTROPHILS % (MANUAL) 66 %
[2019-01-11 13:40] LABS: ELLIPT/OVALOCYTES SLIGHT
[2019-01-11 14:08] LABS: ERYTHROCYTE SEDIMENTATION RATE 8 MM/HR (0-30)
== END ==
LOC: LAB 12:27
PROVIDERS: ATTEND Family Medicine
DX: Z01.812 Encounter for preprocedural laboratory examination (principal); R04.2 Hemoptysis
CPT/HCPCS: 36415; 80048; 85007; 85027; 85652; 86480

== ENCOUNTER → 2019-01-13 | Outpatient (CLI) | payer MEDICARE, MEDICAID ==
--- NOTE | 2019-01-13 12:46 | Diagnostic Imaging Report ---
PROCEDURE: CT chest without contrast. TECHNIQUE: Multiple contiguous axial images were obtained through the chest without the use of intravenous contrast. Auto Exposure Controls were utilized during the CT exam to meet ALARA standards for radiation dose reduction. INDICATION: Cough and hemoptysis. COMPARISON: CT chest from 11/02/2017. FINDINGS: Lungs and airway: No endoluminal nodule within the trachea. No pulmonary mass or consolidation. Decreased size and attenuation of right lower lobe pulmonary nodule now measuring 3 mm (previously 5 mm). No new pulmonary nodule that would suggest neoplastic process. Curvilinear atelectasis/scar in the left lower lobe. Pleura: No pleural effusion or pneumothorax. Heart and mediastinum: No focal lesion within the visualized thyroid. No supraclavicular or axillary lymphadenopathy. No mediastinal, discrete hilar, or juxtaphrenic lymphadenopathy. Heart is enlarged without pericardial effusion. Normal-caliber thoracic aorta. Calcified mediastinal and hilar lymph nodes are compatible with old granulomatous infection. Upper abdomen: No acute or concerning abnormality in the upper abdomen. Musculoskeletal: No lytic or blastic skeletal lesions. IMPRESSION: 1. No acute cardiopulmonary process. 2. No features of intrathoracic neoplasm. Dictated by: Dictated on workstation # [id number]
== END ==
LOC: RAD 10:44
PROVIDERS: ATTEND Family Medicine
DX: Z01.818 Encounter for other preprocedural examination (principal); J18.9 Pneumonia, unspecified organism; R91.8 Other nonspecific abnormal finding of lung field
CPT/HCPCS: 71250

== ENCOUNTER → 2019-04-05 | Outpatient (CLI) | payer MEDICARE, MEDICAID ==
[~2019-04-05] VITALS: Ht 170 cm; Wt 111.0 kg
[~2019-04-05] MED LIST changes: +CATHETER FLUSH 10 ML SYR IV PRN; +REGADENOSON 0.4 MG/5 ML SYR (LEXISCAN) IV ONE; -TIZA4TAB3 PO; +TIZA4TAB4 PO
[2019-04-05 09:42] VITALS: BP 168/93
[2019-04-05 09:46] VITALS: BP 166/96
--- NOTE | 2019-04-05 16:08 | STRESS TEST ---
DATE OF SERVICE: 04/05/2019 LEXISCAN MYOVIEW STRESS TEST REPORT REFERRING PHYSICIAN: Dr. Brush. Baseline heart rate is 75. Baseline blood pressure 168/93. Baseline EKG is sinus rhythm with no ischemic changes. In summary, the patient was injected with 10.52 mCi of technetium-99 Myoview and the resting images were obtained. Then, the patient received 0.4 mg of Lexiscan followed by 29.0 mCi of technetium-99 Myoview. Throughout the test, there were no EKG changes. The resting and stress images were reviewed and compared in the short axis, horizontal long axis, and vertical long axis views. Review of the images showed breast attenuation with motion artifact, there is reversible ischemia involving the whole anterior wall, anterior apex, anterolateral wall. SSS is 10, SDS 10, TID value 1.03. On the gated images, the left ventricle appeared to be in normal size with normal contractility. Calculated ejection fraction 61%. CONCLUSION: 1. The patient tolerated Lexiscan well. 2. Motion artifact and breast attenuation affecting the quality of the images, overall there is reversible ischemia involving the whole anterior wall and anterior apex, anterolateral wall. 3. Normal left ventricular size with normal contractility. Calculated ejection fraction 61%. Job ID: [id number] DocumentID: [id number] Dictated Date: 04/05/2019 13:42:47 Liner Inserter Date: 04/05/2019 16:08:09 Dictated By: ANSON POMPA MD
== END ==
LOC: CARD 08:02
PROVIDERS: ATTEND Internal Medicine Cardiovascular Disease
DX: I48.91 Unspecified atrial fibrillation (principal); E78.5 Hyperlipidemia, unspecified; I10 Essential (primary) hypertension; I25.10 Atherosclerotic heart disease of native coronary artery without angina pectoris
CPT/HCPCS: 78452; 93017

== ENCOUNTER 2019-04-12 07:18 | Day surgery (SDC) | payer MEDICARE, MEDICAID ==
[2019-04-12] VITALS (9 sets, daily range): BP systolic 131–157; BP diastolic 83–97
[~2019-04-12] VITALS: Ht 170 cm; Wt 112.0 kg
[~2019-04-12 07:18] MED LIST changes: -CATHETER FLUSH 10 ML SYR IV PRN; -REGADENOSON 0.4 MG/5 ML SYR (LEXISCAN) IV ONE
[2019-04-12] MEDS ORDERED: NS IV 1000 ML 1,000 ML IV SCH ×2 (07:39→09:17)
[2019-04-12] MEDS ORDERED: LIDOCAINE 1% INJ 20 ML 20 ML VIAL ONE (07:42)
[2019-04-12] MEDS ORDERED: NS IV 1000 ML 1,000 ML ONE (07:42)
[2019-04-12] MEDS ORDERED: HEParin (CATH LAB) 2,000 ML IV ONE (07:42)
[2019-04-12 08:09] LABS: RED CELL DISTRIBUTION WIDTH 13.9 % (10.0-14.5)
[2019-04-12 08:14] LABS: BILIRUBIN,URINE NEGATIVE (NEGATIVE); CLARITY,URINE CLEAR; COLOR,URINE YELLOW; GLUCOSE, URINE (UA) NEGATIVE (NEGATIVE); KETONES,URINE NEGATIVE (NEGATIVE); LEUKOCYTE ESTERASE ,URINE 1+ (NEGATIVE); NITRITE,URINE NEGATIVE (NEGATIVE); PH,URINE 5 (5-9); PROTEIN,URINE 1+ (NEGATIVE); UROBILINOGEN,URINE NORMAL (NORMAL)
[2019-04-12 08:21] LABS: INR 0.9 (0.8-1.4); PROTHROMBIN TIME PATIENT 12.8 SEC (12.2-14.7)
[2019-04-12] MEDS ORDERED: fentaNYL INJECTION 100 MCG/2 ML AMP ONE (08:23)
[2019-04-12] MEDS ORDERED: MIDAZOLAM 5 MG/5 ML (VERSED) VIAL ONE (08:23)
[2019-04-12 08:24] LABS: BACTERIA,URINE FEW /HPF; RBC,URINE 0-2 /HPF
[2019-04-12 08:25] LABS: SQUAMOUS EPITHELIAL CELL,UR 0-2 /HPF
[2019-04-12 08:31] LABS: ALBUMIN 4.1 GM/DL (3.2-4.5); BILIRUBIN,TOTAL 0.6 MG/DL (0.1-1.0); CALCIUM 9.2 MG/DL (8.5-10.1); CREATININE SERUM 1.26 MG/DL (0.60-1.30); POTASSIUM 3.9 MMOL/L (3.6-5.0); TOTAL PROTEIN 7.1 GM/DL (6.4-8.2)
[2019-04-12] MEDS ORDERED: BENZ100C18 PO (08:33)
[2019-04-12] MEDS ORDERED: MONT10TA21 PO (08:33)
[2019-04-12] MEDS ORDERED: APIX5TAB PO (08:33)
[2019-04-12] MEDS ORDERED: LISI40TA PO (08:33)
[2019-04-12] MEDS ORDERED: METO-395 PO (08:33)
[2019-04-12] MEDS ORDERED: CETI10TA20 PO (08:33)
[2019-04-12] MEDS ORDERED: AMLO5TAB4 PO (08:33)
--- NOTE | 2019-04-12 08:33 | Diagnostic Imaging Report ---
Indication: Coronary artery disease Frontal chest obtained at 756 hours am, and is compared to 12/30/2018. There is mild cardiomegaly. Mediastinal silhouette appears unremarkable. There is no focal infiltrate or pneumothorax or pleural fluid. IMPRESSION: Mild cardiomegaly with no acute process in the chest. Dictated by: Dictated on workstation # [id number]
[2019-04-12] MEDS ORDERED: FLUT9.9S NS (08:39)
[2019-04-12] MEDS ORDERED: RT-ALBUINH INH (08:39)
[2019-04-12] MEDS ORDERED: FLUT1BLS IH (08:39)
[2019-04-12] MEDS ORDERED: VERAPAMIL 5 MG/2 ML (CALAN) VIAL IV ONE (08:39)
[2019-04-12] MEDS ORDERED: ASPI-992 PO (08:39)
[2019-04-12] MEDS ORDERED: NITRO DRIP 25000 MCG/D5W 250 ML IV ONE (08:40)
[2019-04-12] MEDS ORDERED: HEParin 1000 UNIT/ML (10ML VIAL) FOR BOLUS ONE (08:40)
[2019-04-12] MEDS ORDERED: CBD SL (09:10)
[2019-04-12] MEDS ORDERED: DIPH25CA79 PO (09:10)
[2019-04-12] MEDS ORDERED: POLY17PO6 PO (09:10)
[2019-04-12] MEDS ORDERED: MAGN296S50 PO (09:10)
[2019-04-12] MEDS ORDERED: [UNRECOGNIZED DRUG - OTHER] PO (09:11)
[2019-04-12] MEDS ORDERED: IBUP-2055 PO (09:12)
--- NOTE | 2019-04-12 09:13 | NUR ---
SPOKE WITH PT (SHE BROUGHT IN HOME MEDS) WELL CALLING [facility] TO COMPLETE THE MED REC. ALL MEDS HAD GOOD DATING AND PT WAS ABLE TO TELL ME HOW SHE TAKES ALL HER MEDS. 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
--- NOTE | 2019-04-12 09:16 | Cardiac Procedure Note-CS/ASA ---
Pre-Procedure Note Pre-Op Procedure Note H&P Reviewed The H&P was reviewed, patient examined and no changes noted. Date H&P Reviewed: Apr 12, 2019 Time H&P Reviewed: 09:16 Conscious Sedation Pre-Proced Time 09:16 ASA Score 3 For ASA 3 and 4: Consider anesthesia and medical clearance. Also, for patients with a history of failed moderate sedation consider anesthesia. Airway Lungs Heart ASA score ASA 1: a normal healthy patient ASA 2: a patient with a mild systemic disease (mid diabetes, controlled hypertension, obesity x ASA 3: a patient with a severe systemic disease that limits activity (angina, COPD, prior Myocardial infarction) ASA 4: a patient with an incapacitating disease that is a constant threat to life (CHF, renal failure) ASA 5: a moribund patient not expected to survive 24 hrs. (ruptured aneurysm) ASA 6: a declared brain- patient whose organs are being harvested. For emergent operations, add the letter E after the classification Mallampati Classification Grade 3 Sedation Plan Analgesia, Amnesia, Plan communicated to team members, Discussed options with patient/fam, Discussed risks with patient/fam The patient is an appropriate candidate to undergo the planned procedure, sedation, and anesthesia. The patient immediately re-assessed prior to indication. ANSON POMPA MD Apr 12, 2019 09:16
--- NOTE | 2019-04-12 09:19 | Discharge Inst-Post CATH ---
Discharge Inst-CATH/EP Problems Reviewed?: Yes Post Cardiac Cath/EP D/C Inst Follow Up/Plan Appointment with Dr. Savage's office in 4 weeks <b>CARDIAC CATH/EP PROCEDURE DISCHARGE INSTRUCTIONS</b> ACTIVITY * Go Home directly and rest. * Limit activity of the leg (or wrist if it was used) for 7 days including aerobics, swimming, jogging, bicycling, etc. * Restrict stair-climbing for 7 days if possible, if not, climb up with your non-cath leg, then bring together on the same step. * Avoid lifting, pushing, pulling or excessive movement of the affected extremity for 7 days. * Customary sexual activity may be resumed after 2 days-use caution not to use a position that strains or causes pain to the affected extremity. * No driving for 24 hours. * NO SMOKING. * Avoid straining for bowel movements for 7 days. * Gentle walking on level ground is allowed. * Returning to work will depend on the type of procedure and the results. Your doctor will discuss this with you. CALL YOUR DOCTOR FOR ANY OF THE FOLLOWING: *If bleeding from the puncture site occurs- Apply gentle pressure to site with clean cloth and call your doctor or EMS. * If a knot or lump forms under the skin, increases in size, or causes pain. * If bruising appears to be worsening or moving further down your leg instead of disappearing. * Temperature above 101 F. CARE OF YOUR GROIN INCISION; * Bruising or purple discoloration of the skin near the puncture site is common. * You may shower only, no bathtub bathing for 5 days. Be careful to avoid slipping as your leg may feel stiff. * If a closure device was used on your femoral artery, please see the attached guide regarding care of the device and your leg. * Leave dressing on FOR 24 hours. CARE OF YOUR WRIST INCISION; * Bruising or purple discoloration of the skin near the puncture site is common. * You may shower. * DO NOT submerge wrist. * Leave dressing on FOR 24 hours. ANSON SAVAGE MD Apr 12, 2019 09:18
--- NOTE | 2019-04-12 09:22 | Cardiac Cath Report ---
Cardiac Cath Report Physician (s)/Art Sales Consultant (s) Physician ANSON POMPA MD Pre-Procedure Diagnosis Pre-Procedure Diagnosis: coronary artery disease Post-Procedure Note Procedure Start Date: Apr 12, 2019 Name of Procedure: Left heart catheterization Findings/Procedure Note PROCEDURE NOTE: 73-year-old lady with history of coronary artery disease, coronary ectasia, had an abnormal stress test, scheduled for cardiac catheterization possible PTCA. After explaining the procedure to the patient, all pros and cons were explained, all questions were answered. The patient signed the consent and then she was placed on the cardiac catheterization laboratory. Groin was prepped SL fashion local anesthesia was used. Sheath placed in the radial artery, Orting catheter was advanced to the left ventricular cavity pressure was measured and left ventriculogram was done, pullback LV to aorta and then did selective angiogram to the left and right coronary system. At the end of the procedure the sheath was removed. Vascular band was used FINDINGS: Hemodynamics LV 121/18, end-diastolic pressure of 18 Aorta 118/80 mean of 78 ANATOMY: Left Main is free of obstructive disease Left Anterior Descending has ectasia proximally with slow flow nonobstructive disease Left Circumflex has ectasia proximally with slow flow nonobstructive disease Right Coronary Artery has mild disease, dominant artery with no obstructive disease LV Gram was not done, pressure was measured CONCLUSION: 1. Coronary ectasia in the proximal LAD and circumflex artery with slow flow due to small vessel disease 2. Normal left ventricular end-diastolic pressure DISCUSSION AND RECOMMENDATION: Medical therapy is recommended no intervention is needed Anesthesia Type: Conscious Sedation Estimated blood loss (mL): 10 ml Contrast Amount: 27 ml Total Radiation Dose: 367 mGy Post-Procedure Diagnosis Post-operative diagnosis: Coronary artery disease Chest pain Hypertension Hyperlipidemia ANSON POMPA MD Apr 12, 2019 09:22
--- NOTE | 2019-04-12 10:15 | NUR ---
PATIENT TO TAKE HER HOME MEDICATIONS AT THIS TIME
== END 2019-04-12 12:45 | disposition home or self-care (01) ==
LOC: CATH 07:18 → SDC 09:38 → CATH 12:45
PROVIDERS: ATTEND Internal Medicine Cardiovascular Disease
DX: I25.10 Atherosclerotic heart disease of native coronary artery without angina pectoris (principal); I10 Essential (primary) hypertension; I48.2 Chronic atrial fibrillation; I65.29 Occlusion and stenosis of unspecified carotid artery; E78.5 Hyperlipidemia, unspecified; E03.9 Hypothyroidism, unspecified; M79.7 Fibromyalgia; G47.33 Obstructive sleep apnea (adult) (pediatric); E66.9 Obesity, unspecified; J44.9 Chronic obstructive pulmonary disease, unspecified; R73.03 Prediabetes; Z68.38 Body mass index [BMI] 38.0-38.9, adult; Z88.0 Allergy status to penicillin; Z88.8 Allergy status to other drugs, medicaments and biological substances; Z88.6 Allergy status to analgesic agent; Z88.5 Allergy status to narcotic agent
CPT/HCPCS: 36415; 71045; 80053; 80061; 81000; 85027; 85610; 85730; 87081; 87088; 93458

== ENCOUNTER → 2019-05-12 | Outpatient (CLI) | payer MEDICARE, MEDICAID ==
[~2019-05-12] MED LIST changes: +AMLO5TAB4 PO; +ASPI-992 PO; +CBD SL; +CETI10TA20 PO; +DIPH25CA79 PO; +FLUT1BLS IH; +IBUP-2055 PO; +MAGN296S50 PO; +METO-395 PO; +MONT10TA21 PO; +RT-ALBUTEROL SULF 2.5 MG/3 ML PRE-MIX VIAL INH ONE; +[UNRECOGNIZED DRUG - OTHER] PO
[2019-05-12 11:17] LABS: CREATININE SERUM 1.17 MG/DL (0.60-1.30)
== END ==
LOC: RT 10:36
PROVIDERS: ATTEND Nurse Practitioner Family
DX: J30.9 Allergic rhinitis, unspecified (principal); I48.91 Unspecified atrial fibrillation; G47.33 Obstructive sleep apnea (adult) (pediatric); J30.2 Other seasonal allergic rhinitis; G47.36 Sleep related hypoventilation in conditions classified elsewhere
CPT/HCPCS: 36415; 82565; 84520; 94060; 94726; 94729

== ENCOUNTER 2019-07-22 01:24 | Emergency (ER) | payer MEDICARE, MEDICAID ==
[~2019-07-22] VITALS: Ht 170 cm; Wt 113.5 kg
[~2019-07-22 01:24] MED LIST changes: -RT-ALBUTEROL SULF 2.5 MG/3 ML PRE-MIX VIAL INH ONE
[2019-07-22] MEDS ORDERED: NITROGLYCERIN 0.4 MG SL TABS BTL 25'S SL PRN (01:45)
[2019-07-22] MEDS ORDERED: ASPIRIN 81 MG CHEW (CHILDREN'S ASA) PO ONE (01:45)
[2019-07-22 01:53] LABS: BASOPHILS % (AUTO) 0 % (0-10); EOSINOPHILS # (AUTO) 0.1 10^3/uL (0.0-0.3); EOSINOPHILS % (AUTO) 3 % (0-10); HEMATOCRIT 37 % (35-52); HEMOGLOBIN 12.1 G/DL (11.5-16.0); LYMPHOCYTES # (AUTO) 1.3 X 10^3 (1.0-4.0); LYMPHOCYTES % (AUTO) 28 % (12-44); MEAN CORPUSCULAR HEMOGLOBIN 27 PG (25-34); MEAN CORPUSCULAR HGB CONC 33 G/DL (32-36); MEAN CORPUSCULAR VOLUME 82 FL (80-99); MEAN PLATELET VOLUME 8.7 FL (7.4-10.4); MONOCYTES # (AUTO) 0.5 X 10^3 (0.0-1.0); MONOCYTES % (AUTO) 10 % (0-12); NEUTROPHILS # (AUTO) 2.6 X 10^3 (1.8-7.8); NEUTROPHILS % (AUTO) 59 % (42-75); PLATELET COUNT 208 10^3/uL (130-400); RED CELL DISTRIBUTION WIDTH 13.8 % (10.0-14.5); WHITE BLOOD COUNT 4.5 10^3/uL (4.3-11.0)
--- NOTE | 2019-07-22 01:57 | NUR ---
PT REPORTS BEING PAIN FREE AFTER 1 NTG. DENIES NEEDS AT THIS TIME.
[2019-07-22 02:07] LABS: PROTHROMBIN TIME PATIENT 14.1 SEC (12.2-14.7)
--- NOTE | 2019-07-22 02:11 | ED Chest Pain ---
General Chief Complaint: Chest Pain Stated Complaint: CP,BACK PAIN Nursing Triage Note: chest pain radiating to back since 0100 Nursing Sepsis Screen: No Definite Risk Source: patient History of Present Illness Date Seen by Provider: Jul 22, 2019 Time Seen by Provider: 01:33 Initial Comments PT ARRIVES VIA POV FROM HOME C/O PAIN THAT STARTED IN HER BACK AND WRAPS ALL THE WAY AROUND HER CHEST TO THE FRONT--STATES IT IS "SHARP LIKE A VISE ALL AROUND" PAIN BEGAN 30 MINUTES AGO, WHILE WALKING ACROSS THE ROOM + SHORTNESS OF BREATH WITH THE PAIN STATES PAIN WAS 10/10, RATES PAIN 3/10 ON ARRIVAL--STATES NOW IT JUST FEELS TIGHT. STATES IT COMES AND GOES. PAIN IS WORSE WITH EXERTION, MOVING OR DEEP BREATH NO SWEATS NO NAUSEA/VOMITING NO SWELLING IN LEGS/ FEET OR PAIN IN CALVES NO DIZZINESS OR SYNCOPE PT HAS CHRONIC ATRIAL FIBRILLATION AND IS ON ELIQUIS, AND HAS A LOOP RECORDER DEVICE IN PLACE SINCE 12/10/18 DENIES ANY MISSED DOSES OF MEDICATIONS PT HAD CARDIAC CATH 04/12/19 WITH MINIMAL SMALL VESSEL DISEASE, AND NO INTERVENTION. PT STATES SHE HAS HAD CHF AND HAS BEEN TOLD SHE HAS "A HOLE IN HER HEART". NO COUGH, FEVER OR RECENT ILLNESS PT DOES HAVE CHRONIC NECK AND BACK PAIN HAS NOT TAKEN ANYTHING FOR PAIN PCP: DR. MONTERO, ALSO [facility] [place] ESTATE TAX EXAMINER: DR. POMPA Allergies and Home Medications Allergies Coded Allergies: Penicillins (Verified Allergy, Mild, 01/04/14) Udruiig-Mze-Jao Reductase Inhibitor (Verified Allergy, Mild, 01/04/14) codeine (Verified Allergy, Mild, 01/04/14) opium tincture (Verified Allergy, Mild, 01/04/14) tramadol (Verified Allergy, Mild, 01/04/14) Home Medications Albuterol Sulfate 1 Puff Puff, 2 PUFF INH Q4H PRN for SHORTNESS OF BREATH, (Reported) 1 PUFF = 90 MCG Amlodipine Besylate 5 Mg Tablet, 5 MG PO DAILY, (Reported) Apixaban 5 Mg Tablet, 5 MG PO BID, (Reported) Aspirin/Acetaminophen/Caffeine 1 Each Tablet, 2 EACH PO Q8H PRN for MIGRAINE, (Reported) Benzonatate 100 Mg Capsule, 100 MG PO TID PRN for COUGH, (Reported) Cetirizine HCl 10 Mg Tablet, 10 MG PO DAILY, (Reported) Diphenhydramine HCl 25 Mg Capsule, 25 MG PO DAILY PRN for ALLERGIES, (Reported) Fluticasone Propionate 9.9 Ml [place].susp, 2 SPRAY NS BID, (Reported) 2 SPRAYS PER NOSTRIL DAILY X 2 DAYS THEN 1 SPRAY DAILY Fluticasone/Vilanterol 1 Each Blst.w.dev, 1 EACH IH DAILY, (Reported) Ibuprofen 200 Mg Tablet, 400-600 MG PO Q6H PRN for PAIN-MILD, (Reported) Levothyroxine Sodium 125 Mcg Tablet, 125 MCG PO DAILY, (Reported) Lisinopril 40 Mg Tablet, 40 MG PO DAILY, (Reported) Magnesium Citrate 296 Ml Solution, 296 ML PO DAILY PRN for CONSTIPATION-9TH LINE, (Reported) Metoprolol Succinate 100 Mg Tab.er.24h, 100 MG PO HS, (Reported) Montelukast Sodium 10 Mg Tablet, 10 MG PO HS, (Reported) Polyethylene Glycol 3350 17 Gm Powd.pack, 17 GM PO DAILY PRN for CONSTIPATION- 2ND LINE, (Reported) [Black Seed Extract] , Unknown Dose PO DAILY, (Reported) [Cbd] , 2 DROP SL BID, (Reported) Review of Systems Review of Systems Constitutional: no symptoms reported; No diaphoresis, No dizziness, No malaise, No weakness EENTM: No Symptoms Reported Respiratory: See HPI, Shortness of Air Cardiovascular: See HPI, Chest Pain; Denies Edema; Irregular Heart Rate (CHRONIC ATRIAL FIBRILLATION); Denies Lightheadedness, Denies Palpitations, Denies Syncope Gastrointestinal: No Symptoms Reported; Denies Abdominal Pain, Denies Nausea, Denies Vomiting Genitourinary: No Symptoms Reported Musculoskeletal: see HPI, back pain Skin: no symptoms reported Psychiatric/Neurological: No Symptoms Reported; Denies Headache, Denies Numbness, Denies Paresthesia Endocrine: No Symptoms Reported Hematologic/Lymphatic: No Symptoms Reported Past Gvjdvsj-Qfvdis-Xawkbm Hx Past Med/Social Hx: Reviewed and Corrections made Patient Social History Alcohol Use: Denies Use Number of Drinks Today: DD Alcohol Beverage of Choice: Rum Recreational Drug Use: No Smoking Status: Former Smoker Type Used: Cigarettes 2nd Hand Smoke Exposure: Yes Recent Foreign Travel: No Contact w/Someone Who Travel: No Recent Infectious Disease Expo: No Recent Hopitalizations: No Physical Abuse: No Sexual Abuse: No Mistreated: No Fear: No Immunizations Up To Date Tetanus Booster (TDap): Unknown Date of Pneumonia Vaccine: Jul 18, 2015 Date of Influenza Vaccine: Jul 18, 2015 Seasonal Allergies Seasonal Allergies: Yes Past Medical History Surgeries: Yes (DENTAL;HEMORRHOIDECTOMY;CARDIAC CATHS-NO INTERVENTION;LOOP RECORDER;CATARAC) Cardiac, Eye Surgery, Rectal, Tubal Ligation Respiratory: Yes (PNEUMONIA) Asthma, Pneumonia, Sleep Apnea Currently Using CPAP: No (PATIENT WEARS 02 AT NIGHT (3L/NC) ) Currently Using BIPAP: No Cardiac: Yes ( CHF;'HOLE IN MY HEART"PER PT;CARDIAC CATHS-NO INTERVENTION; LOOP RECORDER) Atrial Fibrillation, Coronary Artery Disease, High Cholesterol, Hypertension, Irregular Heartbeat Neurological: Yes Neuropathy : No 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 Disorders: No 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 Disorders: Denies SOURCING INTERN History: Tubal Ligation, Menopausal Sexually Transmitted Disease: No HIV/AIDS: No Genitourinary: Yes (INCONTINENCE) Bladder Infection, UTI-Chronic Gastrointestinal: Yes Gastroesophageal Reflux, Chronic Constipation, Hemorrhoids, Irritable Bowel Musculoskeletal: Yes (CHRONIC NECK, BACK AND KNEE PAIN) Osteoporosis, Arthritis, Fibromyalgia, Chronic Back Pain Endocrine: Yes (HYPOGLYCEMIA; OBESITY) Hypothyroidsim HEENT: Yes (WEARS GLASSES; CATARACT SURGERY) Cataract Hearing Impairment: Hard of Hearing Cancer: No Psychosocial: Yes Anxiety Integumentary: No Blood Disorders: No Family Medical History Dementia 19 FATHER Drug abuse G8 BROTHER G8 SISTER FH: pancreatic cancer 19 MOTHER ( OF PANCREATIC CA AGE 67) Thyroid disease 19 MOTHER CARDIAC CATHS--LAST ONE 04/12/19--MINIMAL SMALL VESSEL DISEASE, NO INTERVENTION LOOP RECORDER PLACED 12/10/18 FOR CHRONIC ATRIAL FIBRILLATION Physical Exam Vital Signs Vital Signs - First Documented Capillary Refill : Less Than 3 Seconds Height, Weight, BMI Height: 5'7.00" Weight: 235lbs. 11.2oz. 106.114893ll; 39.00 BMI Method:Stated Progress/Results/Core Measures Results/Orders Lab Results Laboratory Tests Test 07/22/19 01:45 07/22/19 05:50 Range/Units White Blood Count 4.5 4.3-11.0 10^3/uL Red Blood Count 4.51 4.35-5.85 10^6/uL Hemoglobin 12.1 11.5-16.0 G/DL Hematocrit 37 35-52 % Mean Corpuscular Volume 82 80-99 FL Mean Corpuscular Hemoglobin 27 25-34 PG Mean Corpuscular Hemoglobin Concent 33 32-36 G/DL Red Cell Distribution Width 13.8 10.0-14.5 % Platelet Count 208 130-400 10^3/uL Mean Platelet Volume 8.7 7.4-10.4 FL Neutrophils (%) (Auto) 59 42-75 % Lymphocytes (%) (Auto) 28 12-44 % Monocytes (%) (Auto) 10 0-12 % Eosinophils (%) (Auto) 3 0-10 % Basophils (%) (Auto) 0 0-10 % Neutrophils # (Auto) 2.6 1.8-7.8 X 10^3 Lymphocytes # (Auto) 1.3 1.0-4.0 X 10^3 Monocytes # (Auto) 0.5 0.0-1.0 X 10^3 Eosinophils # (Auto) 0.1 0.0-0.3 10^3/uL Basophils # (Auto) 0.0 0.0-0.1 10^3/uL Prothrombin Time 14.1 12.2-14.7 SEC INR Comment 1.0 0.8-1.4 Activated Partial Thromboplast Time 33 24-35 SEC Sodium Level 141 135-145 MMOL/L Potassium Level 3.7 3.6-5.0 MMOL/L Chloride Level 106 98-107 MMOL/L Carbon Dioxide Level 23 21-32 MMOL/L Anion Gap 12 5-14 MMOL/L Blood Urea Nitrogen 30 H 7-18 MG/DL Creatinine 1.50 H 0.60-1.30 MG/DL Estimat Glomerular Filtration Rate 34 BUN/Creatinine Ratio 20 Glucose Level 111 H 70-105 MG/DL Calcium Level 9.1 8.5-10.1 MG/DL Corrected Calcium 9.1 8.5-10.1 MG/DL Magnesium Level 1.9 1.6-2.4 MG/DL Total Bilirubin 0.4 0.1-1.0 MG/DL Aspartate Amino Transf (AST/SGOT) 17 5-34 U/L Alanine Aminotransferase (ALT/SGPT) 12 0-55 U/L Alkaline Phosphatase 87 40-136 U/L Total Creatine Kinase 54 29-168 U/L Creatine Kinase MB 1.0 <6.6 NG/ML Myoglobin 39.3 10.0-92.0 NG/ML Troponin I < 0.028 < 0.028 <0.028 NG/ML B-Type Natriuretic Peptide 121.6 H <100.0 PG/ML Total Protein 6.8 6.4-8.2 GM/DL Albumin 4.0 3.2-4.5 GM/DL Amylase Level 61 25-125 U/L Lipase 53 8-78 U/L My Orders Orders - ALEXIS HDEZ DO Cbc With Automated Diff (07/22/19 01:40) Magnesium (07/22/19 01:40) Chest 1 View, Ap/Pa Only (07/22/19 01:40) Ekg Tracing (07/22/19 01:40) Comprehensive Metabolic Panel (07/22/19 01:40) Myoglobin Serum (07/22/19 01:40) Protime With Inr (07/22/19 01:40) Partial Thromboplastin Time (07/22/19 01:40) O2 (07/22/19 01:40) Monitor-Rhythm Ecg Trace Only (07/22/19 01:40) Ed Iv/Invasive Line Start (07/22/19 01:40) Creatine Kinase (07/22/19 01:40) Creatine Kinase Mb (07/22/19 01:40) Lipase (07/22/19 01:40) Amylase (07/22/19 01:40) BNP (07/22/19 01:40) Nitroglycerin 0.4 Mg Btl 25's (Nitrostat (07/22/19 01:45) Aspirin Chewable Tablet (Baby Aspirin Ch (07/22/19 01:45) Troponin I (07/22/19 01:45) Ekg Tracing (07/22/19 04:36) Troponin I (07/22/19 04:36) Medications Given in ED Current Medications Medications Dose Ordered Sig/Kareem Route Start Time Stop Time Status Last Admin Dose Admin Aspirin 324 mg ONCE ONCE PO 07/22/19 01:45 07/22/19 01:46 DC 07/22/19 01:53 324 MG Nitroglycerin 0.4 mg UD PRN SL 07/22/19 01:45 07/22/19 01:53 0.4 MG Vital Signs/I&O 07/22/19 07/22/19 01:32 01:32 Temp 36.9 Pulse 86 Resp 16 B/P (MAP) 151/94 (113) Pulse Ox 99 O2 Delivery Room Air Room Air Blood Pressure Mean: 113 Progress Progress Note : Progress Note GIVEN ASA 324 MG AND NTG SL X 1 --PAIN WENT FROM Initial ECG Impression Date: Jul 22, 2019 Initial ECG Impression Time: 01:40 Initial ECG Rate: 82 Initial ECG Rhythm: A Fib/Flutter Initial ECG Impression: Nonspecific Changes Initial ECG Comparisson: Unchanged Diagnostic Imaging Comments CXR--NO ACUTE PROCESS, PENDING RADIOLOGIST REVIEW Reviewed: Reviewed by Me Departure Impression Primary Impression: Chest pain Disposition: HOME, SELF-CARE Condition: Improved Departure-Patient Inst. Referrals: ANSON POMPA MD, RACHEL L MD (PCP/Family) Primary Care Physician Patient Instructions: Chest Pain (DC) Add. Discharge Instructions: HOME, REST CONTINUE YOUR CURRENT MEDICATIONS PRESCRIBED FOLLOW UP WITH DR. POMPA ON WEDNESDAY FOR FURTHER CARE RETURN TO ER IF SYMPTOMS RETURN All discharge instructions reviewed with patient and/or family. Voiced understanding. ALEXIS HDEZ DO Jul 22, 2019 02:11
[2019-07-22 02:20] LABS: ALANINE AMINOTRANSFERASE 12 U/L (0-55); ALKALINE PHOSPHATASE 87 U/L (40-136); AMYLASE 61 U/L (25-125); BILIRUBIN,TOTAL 0.4 MG/DL (0.1-1.0); BUN/CREATININE RATIO 20; CALCIUM 9.1 MG/DL (8.5-10.1); CARBON DIOXIDE 23 MMOL/L (21-32); CHLORIDE 106 MMOL/L (98-107); CREATINE KINASE 54 U/L (29-168); GFR ESTIMATED 34; GLUCOSE 111 MG/DL (70-105); LIPASE 53 U/L (8-78); MAGNESIUM 1.9 MG/DL (1.6-2.4); POTASSIUM 3.7 MMOL/L (3.6-5.0); SODIUM 141 MMOL/L (135-145); TOTAL PROTEIN 6.8 GM/DL (6.4-8.2)
[2019-07-22 06:46] VITALS: BP 130/77
--- NOTE | 2019-07-22 08:38 | Diagnostic Imaging Report ---
INDICATION: Chest pain. COMPARISON: 04/12/2019. TECHNIQUE: Single radiograph of the chest dated 07/22/2019. FINDINGS: Loop recorder is again noted overlying the left chest. The cardiac silhouette is borderline enlarged, though stable. No significant pulmonary vascular congestion. The lungs are clear. No pleural effusion. No pneumothorax. No acute osseous abnormality. IMPRESSION: Stable appearing examination without acute cardiopulmonary abnormality. Dictated by: Dictated on workstation # [id number]
== END 2019-07-22 06:47 | disposition home or self-care (01) ==
LOC: EDUNIT# 01:24 → ER 01:26
DX: R07.9 Chest pain, unspecified (principal); I48.20 Chronic atrial fibrillation, unspecified; I11.0 Hypertensive heart disease with heart failure; I50.9 Heart failure, unspecified; E78.00 Pure hypercholesterolemia, unspecified; I25.10 Atherosclerotic heart disease of native coronary artery without angina pectoris; J45.909 Unspecified asthma, uncomplicated; G47.30 Sleep apnea, unspecified; K21.9 Gastro-esophageal reflux disease without esophagitis; K58.9 Irritable bowel syndrome, unspecified; M81.0 Age-related osteoporosis without current pathological fracture; M79.7 Fibromyalgia; E03.9 Hypothyroidism, unspecified; E66.9 Obesity, unspecified; F41.9 Anxiety disorder, unspecified; Z68.39 Body mass index [BMI] 39.0-39.9, adult; Z80.0 Family history of malignant neoplasm of digestive organs; Z99.81 Dependence on supplemental oxygen; Z98.51 Tubal ligation status; Z87.891 Personal history of nicotine dependence; Z79.01 Long term (current) use of anticoagulants; Z88.0 Allergy status to penicillin; Z88.8 Allergy status to other drugs, medicaments and biological substances; Z88.5 Allergy status to narcotic agent; Z79.82 Long term (current) use of aspirin; Z79.51 Long term (current) use of inhaled steroids
CPT/HCPCS: 36415; 71045; 80053; 82150; 82550; 82553; 83690; 83735; 83874; 83880; 84484; 85025; 85610; 85730; 93005; 93041

== ENCOUNTER → 2019-09-04 | Outpatient (CLI) | payer MEDICARE, MEDICAID ==
[~2019-09-04] MED LIST changes: +DIPH25CA48 PO; -DIPH25CA6 PO; -IBUP-2055 PO; +IBUP-2473 PO; -METO-387 PO; -METO-395 PO; +MTP100TCR PO; +MTP25TSR PO
--- NOTE | 2019-09-04 12:43 | Diagnostic Imaging Report ---
PROCEDURE: US Renal Bilateral. TECHNIQUE: Multiple real-time grayscale images were obtained over the kidneys in various projections bilaterally. INDICATION: Abnormal renal function. FINDINGS: Examination is technically difficult due to patient's body habitus. Right kidney measures 10.1 x 5.2 x 4.6 cm, and the left kidney measures 10.4 x 5 x 5.5 cm. Both kidneys grossly demonstrate normal renal cortical thickness and echogenicity. There is no hydronephrosis, calculi, or mass. The right ureteral jet was visualized, the left was not. IMPRESSION: Grossly unremarkable sonographic appearance of the kidneys. Nonvisualization of the left ureteral jet. Dictated by: Dictated on workstation # [id number]
== END ==
LOC: RAD 10:58
PROVIDERS: ATTEND Family Medicine
DX: N28.9 Disorder of kidney and ureter, unspecified (principal)
CPT/HCPCS: 76770

== ENCOUNTER → 2019-09-04 | Outpatient (CLI) | payer MEDICARE ==
[2019-09-04 12:18] LABS: ALBUMIN 3.9 GM/DL (3.2-4.5); BILIRUBIN,TOTAL 0.7 MG/DL (0.1-1.0); CALCIUM 9.5 MG/DL (8.5-10.1); CREATININE SERUM 1.44 MG/DL (0.60-1.30); TOTAL PROTEIN 6.9 GM/DL (6.4-8.2)
== END ==
LOC: LAB 11:47
PROVIDERS: ATTEND Internal Medicine Cardiovascular Disease
DX: I48.0 Paroxysmal atrial fibrillation (principal); E78.5 Hyperlipidemia, unspecified; I10 Essential (primary) hypertension; I25.10 Atherosclerotic heart disease of native coronary artery without angina pectoris
CPT/HCPCS: 36415; 80053; 80061

== ENCOUNTER → 2020-04-19 | Outpatient (CLI) | payer MEDICARE, MEDICAID ==
[~2020-04-19] MED LIST changes: +ACHD5005 PO; +ASPI-1238 PO; -ASPI-983 PO; -CETI10TA20 PO; +CETI10TA49 PO; -HYDR-3812 PO; -MAGN296S50 PO; +MAGN296S71 PO
--- NOTE | 2020-04-19 12:48 | Diagnostic Imaging Report ---
Indication: Routine screening Comparison is made with prior mammogram from 03/28/2014 and 03/25/2010. 2-D and 3-D bilateral screening mammography was performed with CAD. Scattered fibroglandular densities are identified bilaterally. Cardiac monitoring device overlies the medial left breast. No dominant mass or malignant appearing microcalcifications are seen. Axillae are unremarkable. IMPRESSION: BI-RADS Category 1 No mammographic features suspicious for malignancy are identified. ACR BI-RADS Category 1: Negative. Result letter will be mailed to the patient. Note: At least 10% of breast cancer is not imaged by mammography. Dictated by: Dictated on workstation # [id number]
== END ==
LOC: RAD 10:45
PROVIDERS: ATTEND Family Medicine
DX: Z12.31 Encounter for screening mammogram for malignant neoplasm of breast (principal); Z98.890 Other specified postprocedural states
CPT/HCPCS: 77063; 77067

== ENCOUNTER 2020-06-07 05:44 | Outpatient (RCR) | payer MEDICARE, MEDICAID ==
[~2020-06-07] VITALS: Ht 170 cm; Wt 110.0 kg
[~2020-06-07 05:44] MED LIST changes: +AMLO-250 PO; +AMLO-251 PO; -AMLO10TA7 PO; -AMLO5TAB9 PO; +FLT11013 IH; +HYDR-700 PO; +METO200T48 PO; +MONT10TA26 PO; +TRZ50T PO
== END 2020-06-07 09:33 | disposition home or self-care (01) ==
LOC: PREOP 05:44
PROVIDERS: ATTEND Surgery
DX: Z01.818 Encounter for other preprocedural examination (principal); R19.5 Other fecal abnormalities; Z20.828 Contact with and (suspected) exposure to other viral communicable diseases
CPT/HCPCS: 87635

== ENCOUNTER 2020-06-12 07:05 | Day surgery (SDC) | payer MEDICARE, MEDICAID ==
[~2020-06-12] VITALS: Ht 170 cm; Wt 110.0 kg
[~2020-06-12 07:05] MED LIST changes: -MONT10TA26 PO; +MONT10TA97 PO
[2020-06-12] MEDS ORDERED: LACTATED RINGERS 1,000 ML IV ONE (07:14)
[2020-06-12] MEDS ORDERED: LACTATED RINGERS 1,000 ML IV STA (07:26)
[2020-06-12 07:30] VITALS: BP 150/89
[2020-06-12] MEDS ORDERED: MIDAZOLAM 2 MG/2 ML (VERSED) VIAL ONE (07:35)
[2020-06-12] MEDS ORDERED: PROPOFOL INJECTION 50 ML IV ONE (07:35)
--- NOTE | 2020-06-12 08:27 | Progress Note-Pre Operative ---
Pre-Operative Progress Note H&P Reviewed The H&P was reviewed, patient examined and no changes noted. Date Seen by Provider: Jun 12, 2020 Time Seen by Provider: 08: Date H&P Reviewed: Jun 12, 2020 Time H&P Reviewed: : Pre-Operative Diagnosis: +MINI Rosario DO Jun 12, 2020 08:27
[2020-06-12] MEDS ORDERED: proPOfol 200 MG/20 ML (DIPRIVAN) VIAL IV ONE (08:43)
[2020-06-12 08:55] VITALS: BP 146/71
[2020-06-12 09:00] VITALS: BP 131/70
[2020-06-12 09:05] VITALS: BP 167/70
[2020-06-12 09:35] VITALS: BP 173/96
[2020-06-12 10:05] VITALS: BP 173/96
--- NOTE | 2020-06-12 10:53 | Anesthesia-General Post-Op ---
MAC Patient Condition Mental Status/LOC: Same as Preop Cardiovascular: Satisfactory Nausea/Vomiting: Absent Respiratory: Satisfactory Pain: Controlled Complications: Absent Post Op Complications Complications None Follow Up Care/Instructions Patient Instructions None needed. Anesthesiology Discharge Order Discharge Order Patient is doing well, no complaints, stable vital signs, no apparent adverse anesthesia problems. No complications reported per nursing. KYLAH PEÑA CRNA Jun 12, 2020 10:53
--- NOTE | 2020-06-12 23:51 | OPERATIVE REPORT ---
DATE OF SERVICE: 06/12/2020 PREOPERATIVE DIAGNOSIS: Positive Cologuard. POSTOPERATIVE DIAGNOSES: Sigmoid mass, diverticulosis. PROCEDURE: Colonoscopy with cold biopsies of sigmoid mass and Patricia inking. SURGEON: Mini Florentino DO ANESTHESIA: Per TRANSPORT COMPANY MANAGER. ESTIMATED BLOOD LOSS: Scant. COMPLICATIONS: None. INDICATIONS: The patient is a 74-year-old female with positive Cologuard test. She understands risks and benefits of procedure and wished to proceed with procedure. Consent was signed in the chart. DESCRIPTION OF PROCEDURE: The patient was taken to the endoscopy suite, placed in left lateral recumbent position. Timeout was performed. Digital rectal exam was performed. There were no palpable polyps, masses or ulcerations. Scope was inserted into the rectum and advanced all the way to cecum with minimal difficulty. Prep was adequate with irrigation and suction. Scope was then slowly retracted back. There were no polyps, masses or ulcerations within the cecum, ascending, transverse and descending colon. In the sigmoid colon, a fair amount of diverticulosis is present and also a sigmoid mass is identified. Multiple cold biopsies were obtained. Just distal to this area, Patricia ink was injected into three separate locations with 1 mL of ink injected in each spot. Scope was then continuously retracted back. No other polyps, masses or ulcerations. Once in the rectum, scope was retroflexed noting no other pathology. Scope was returned to its normal position, slowly withdrawn until completely removed. The patient tolerated procedure well without any complications. She was taken to recovery room in stable condition. RECOMMENDATIONS: The patient will follow up on pathology. We will need surgical intervention for removal. Job ID: [id number] DocumentID: [id number] Dictated Date: 06/12/2020 21:18:19 Sports Specialist Date: 06/12/2020 23:51:00 Dictated By: MINI FLORENTINO DO
== END 2020-06-12 10:05 | disposition home or self-care (01) ==
LOC: ENDO 07:05
PROVIDERS: ATTEND Surgery
DX: K57.30 Diverticulosis of large intestine without perforation or abscess without bleeding (principal); C18.7 Malignant neoplasm of sigmoid colon; I11.0 Hypertensive heart disease with heart failure; I50.9 Heart failure, unspecified; I25.10 Atherosclerotic heart disease of native coronary artery without angina pectoris; I48.91 Unspecified atrial fibrillation; J45.909 Unspecified asthma, uncomplicated; G47.33 Obstructive sleep apnea (adult) (pediatric); F41.9 Anxiety disorder, unspecified; K21.9 Gastro-esophageal reflux disease without esophagitis; E03.9 Hypothyroidism, unspecified; E78.5 Hyperlipidemia, unspecified; E66.01 Morbid (severe) obesity due to excess calories; Z68.38 Body mass index [BMI] 38.0-38.9, adult; Z79.01 Long term (current) use of anticoagulants; Z79.899 Other long term (current) drug therapy; Z88.0 Allergy status to penicillin; Z88.5 Allergy status to narcotic agent; Z88.8 Allergy status to other drugs, medicaments and biological substances; Z87.891 Personal history of nicotine dependence; Z80.0 Family history of malignant neoplasm of digestive organs; Z80.9 Family history of malignant neoplasm, unspecified; Z83.3 Family history of diabetes mellitus
CPT/HCPCS: 88305; 88341; 88342; 88344

== ENCOUNTER → 2020-07-05 | Outpatient (CLI) | payer MEDICARE, MEDICAID ==
[~2020-07-05] MED LIST changes: +CATHETER FLUSH 10 ML SYR IV PRN; +HOLD METFORMIN - RECEIVED CONTRAST 20 ML VIAL IV SCH; +IOHEXOL 350 MG/ML 100 ML (OMNIPAQUE 350) VIAL IV ONE; +NS 100 ML (IVPB) BAG IV ONE
[2020-07-05 10:18] LABS: HEMOGLOBIN 11.4 g/dL (11.5-16.0); MEAN PLATELET VOLUME 8.5 fL (9.0-12.2); WHITE BLOOD COUNT 2.5 10^3/uL (4.3-11.0)
[2020-07-05 10:37] LABS: ALBUMIN 3.9 GM/DL (3.2-4.5); BILIRUBIN,TOTAL 0.8 MG/DL (0.1-1.0); CALCIUM 8.9 MG/DL (8.5-10.1); CREATININE SERUM 1.06 MG/DL (0.60-1.30); POTASSIUM 3.7 MMOL/L (3.6-5.0); TOTAL PROTEIN 6.7 GM/DL (6.4-8.2)
--- NOTE | 2020-07-05 10:42 | Diagnostic Imaging Report ---
INDICATION: Colon cancer. Comparison with 07/22/2019. The lungs are well-aerated and clear. Heart is not enlarged. Plan vasculature is normal. No pneumothorax or pleural effusion. No bony abnormalities. lost charge card clerk noted overlying the left chest. IMPRESSION: No acute abnormalities. Dictated by: Dictated on workstation # [id number]
--- NOTE | 2020-07-05 12:01 | Diagnostic Imaging Report ---
PROCEDURE: CT abdomen and pelvis with contrast. TECHNIQUE: Multiple contiguous axial images were obtained through the abdomen and pelvis after administration of intravenous contrast. Auto Exposure Controls were utilized during the CT exam to meet ALARA standards for radiation dose reduction. All CT scans use one or more of the following dose optimizing techniques: automated exposure control, MA and/or KvP adjustment based on patient size and exam type or iterative reconstruction. INDICATION: Colon cancer. COMPARISON: Correlation is made with prior CT from 12/23/2016. FINDINGS: Lung bases are clear. No discrete liver mass is identified. The gallbladder is unremarkable. No biliary ductal dilatation is seen. The pancreas and spleen are unremarkable. No adrenal mass is detected. Kidneys are unremarkable. Aorta is nonaneurysmal. No central retroperitoneal lymphadenopathy is identified. There is soft tissue mass-like density just medial and adjacent to the descending colon near the junction with the sigmoid. This soft tissue density measures approximately 3.8 x 2.4 cm. Density at this location measured 2.7 x 1.8 cm on prior. This may represent a ap mass. Bowel loops are normal in caliber. No definite obstruction is seen. There is diverticulosis of the descending and sigmoid colon but no evidence of acute diverticulitis. No free fluid is identified. Bladder is decompressed. The uterus is unremarkable. No inguinal or iliac lymphadenopathy is seen. Bony structures are nonacute. IMPRESSION: 1. There is a soft tissue mass-like density in the left lower quadrant adjacent to the descending colon near the junction with the sigmoid. This may represent a ap mass. This has increased in size since exam from 2017. No additional areas of lymphadenopathy are seen. 2. Uncomplicated diverticulosis. Dictated by: Dictated on workstation # [id number]
--- NOTE | 2020-07-05 15:30 | Diagnostic Imaging Report ---
PROCEDURE: US non-OB pelvis comp/trans. TECHNIQUE: Multiple realtime grayscale images were obtained of the pelvis in various projections, endovaginally. Transabdominal imaging was also performed. INDICATION: History of colon cancer. Pelvic pain. FINDINGS: Uterus measures 5.8 x 2.5 x 4.3 cm. The endometrial stripe is 1 cm. No myometrial mass. The right ovary was not visualized. Left ovary measures 1.5 x 1.1 x 2.4 cm. There is no free fluid. There is normal blood flow to the left ovary. IMPRESSION: 1. Right ovary not identified. This may be obscured by bowel gas. 2. The uterus and left ovary appear normal. No free fluid. Dictated by: Dictated on workstation # [id number]
== END ==
LOC: RAD 09:59
PROVIDERS: ATTEND Surgery
DX: C18.9 Malignant neoplasm of colon, unspecified (principal); K57.30 Diverticulosis of large intestine without perforation or abscess without bleeding
CPT/HCPCS: 36415; 71046; 74177; 76830; 76856; 80053; 82378; 85027; 86304

== ENCOUNTER 2020-07-10 12:56 | Outpatient (RCR) | payer MEDICARE, MEDICAID ==
[~2020-07-10 12:56] MED LIST changes: -CATHETER FLUSH 10 ML SYR IV PRN; -HOLD METFORMIN - RECEIVED CONTRAST 20 ML VIAL IV SCH; -IOHEXOL 350 MG/ML 100 ML (OMNIPAQUE 350) VIAL IV ONE; -LISI-552 PO; -LISI-556 PO; +LISI-729 PO; +LISI20TA26 PO; -LISI40TA PO; +LISI40TA9 PO; +MONT10TA32 PO; -MONT10TA97 PO; -NS 100 ML (IVPB) BAG IV ONE
[2020-08-31] MEDS ORDERED: ACHD5005 PO ×2 (17:04→17:13)
[2020-08-31] MEDS ORDERED: ONDA4TAB11 PO ×2 (17:04→17:13)
== END 2020-10-04 08:33 | disposition home or self-care (01) ==
LOC: ONC 12:56
PROVIDERS: ATTEND Internal Medicine Hematology & Oncology
DX: D72.819 Decreased white blood cell count, unspecified (principal); I25.10 Atherosclerotic heart disease of native coronary artery without angina pectoris; I48.91 Unspecified atrial fibrillation; J44.9 Chronic obstructive pulmonary disease, unspecified; N39.0 Urinary tract infection, site not specified
CPT/HCPCS: 99214

== ENCOUNTER → 2020-07-17 | Outpatient (CLI) | payer MEDICARE, MEDICAID ==
[~2020-07-17] MED LIST changes: +CATHETER FLUSH 10 ML SYR IV PRN; +HOLD METFORMIN - RECEIVED CONTRAST 20 ML VIAL IV SCH; +IOHEXOL 350 MG/ML 100 ML (OMNIPAQUE 350) VIAL IV ONE; +LISI-552 PO; +LISI-556 PO; -LISI-729 PO; -LISI20TA26 PO; +LISI40TA PO; -LISI40TA9 PO; -MONT10TA32 PO; +MONT10TA97 PO; +NS 100 ML (IVPB) BAG IV ONE
--- NOTE | 2020-07-17 11:00 | Diagnostic Imaging Report ---
PROCEDURE: CT chest with contrast only. TECHNIQUE: Multiple contiguous axial images were obtained through the chest after administration of intravenous contrast. Auto Exposure Controls were utilized during the CT exam to meet ALARA standards for radiation dose reduction. INDICATION: Malignant neoplasm of the ovary, evaluate for metastatic disease. COMPARISON: May 12, 2019 and July 28, 2017. FINDINGS: Loop recorder is present within the medial and superior left breast. Several calcified mediastinal and right hilar lymph nodes are present. No pathologically enlarged lymph nodes within the chest. No aneurysmal dilatation of thoracic aorta. The heart is mildly enlarged. No significant pericardial effusion. No pleural effusion. The trachea is patent. No pneumothorax. 0.3 cm subpleural left lower lobe pulmonary nodule is present though unchanged since July 2017, therefore, benign. Additional 0.2 cm left lower lobe pulmonary nodule is also present and unchanged since 2017 and benign. Stable calcified granuloma within the right upper lobe medially. 0.5 cm subpleural right upper lobe pulmonary nodule is present and unchanged since 2017 and benign. 0.4 cm right lower lobe pulmonary nodule is unchanged since 2007. No new pulmonary nodule or opacity. Calcified granuloma within the liver. The visualized upper abdomen is otherwise unremarkable. Scattered osseous degenerative changes without acute osseous abnormality. IMPRESSION: No acute abnormality. No evidence of metastatic disease within the chest. Stable benign sub-0.5 cm bilateral pulmonary nodules which are unchanged since at least July 2017. Dictated by: Dictated on workstation # [id number]
== END ==
LOC: RAD 09:45
PROVIDERS: ATTEND Internal Medicine Hematology & Oncology
DX: C56.9 Malignant neoplasm of unspecified ovary (principal); R91.8 Other nonspecific abnormal finding of lung field
CPT/HCPCS: 71260

== ENCOUNTER 2020-08-31 14:04 | Emergency (ER) | payer MEDICARE, MEDICAID ==
[~2020-08-31] VITALS: Ht 170 cm; Wt 104.0 kg
[~2020-08-31 14:04] MED LIST changes: -CATHETER FLUSH 10 ML SYR IV PRN; -HOLD METFORMIN - RECEIVED CONTRAST 20 ML VIAL IV SCH; -IOHEXOL 350 MG/ML 100 ML (OMNIPAQUE 350) VIAL IV ONE; -LISI-552 PO; -LISI-556 PO; +LISI-729 PO; +LISI20TA26 PO; -LISI40TA PO; +LISI40TA9 PO; +MONT10TA32 PO; -MONT10TA97 PO; -NS 100 ML (IVPB) BAG IV ONE
[2020-08-31 14:32] LABS: BASOPHILS % (AUTO) 0 % (0-10); EOSINOPHILS # (AUTO) 0.1 10^3/uL (0.0-0.3); EOSINOPHILS % (AUTO) 3 % (0-10); HEMATOCRIT 35 % (35-52); HEMOGLOBIN 10.8 g/dL (11.5-16.0); LYMPHOCYTES # (AUTO) 0.6 10^3/uL (1.0-4.0); LYMPHOCYTES % (AUTO) 21 % (12-44); MEAN CORPUSCULAR HEMOGLOBIN 26 pg (25-34); MEAN CORPUSCULAR HGB CONC 31 g/dL (32-36); MEAN CORPUSCULAR VOLUME 83 fL (80-99); MEAN PLATELET VOLUME 8.8 fL (9.0-12.2); MONOCYTES # (AUTO) 0.3 10^3/uL (0.0-1.0); MONOCYTES % (AUTO) 10 % (0-12); NEUTROPHILS # (AUTO) 1.8 10^3/uL (1.8-7.8); NEUTROPHILS % (AUTO) 66 % (42-75); PLATELET COUNT 177 10^3/uL (130-400); WHITE BLOOD COUNT 2.8 10^3/uL (4.3-11.0)
[2020-08-31 14:42] LABS: ALBUMIN 3.9 GM/DL (3.2-4.5); POTASSIUM 4.1 MMOL/L (3.6-5.0)
[2020-08-31 14:43] LABS: CALCIUM 8.7 MG/DL (8.5-10.1)
[2020-08-31 14:45] LABS: TOTAL PROTEIN 6.8 GM/DL (6.4-8.2)
[2020-08-31 14:46] LABS: BILIRUBIN,TOTAL 0.9 MG/DL (0.1-1.0)
[2020-08-31 14:48] LABS: CREATININE SERUM 1.19 MG/DL (0.60-1.30)
[2020-08-31] MEDS ORDERED: LACTATED RINGERS 1,000 ML IV ONE (15:00)
[2020-08-31] MEDS ORDERED: ONDANSETRON 4 MG/2 ML (SDV) Z0FRAN IVP ONE (15:00)
[2020-08-31] MEDS ORDERED: fentaNYL INJECTION 100 MCG/2 ML AMP IVP ONE (15:00)
--- NOTE | 2020-08-31 15:12 | ED Abdominal Pain ---
General Chief Complaint: Abdominal/GI Problems Stated Complaint: ABD PAIN Nursing Triage Note: PT TO ROOM 5 PER W/C W SPOUSE. PT CO OF ABD LOWER ABD, PT STATES HAS BECOME WORSE LAST PM STATES SCHEDULED FOR ABD SURG FOR CANCER ON WEDNESDAY. PT STATES TRAMMADOL NOT HELPING W PAIN. Sepsis Screen: No Definite Risk Source of Information: Patient Exam Limitations: No Limitations (SASHA PASCUAL) History of Present Illness Date Seen by Provider: Aug 31, 2020 Time Seen by Provider: 15:08 Initial Comments Shweta Simental is a 74 y/o female that presents to the ER with 10/10 abdominal pain and nausea. Her abdominal pain has been progressing in severity over the last week. She states the pain is diffuse with sharp pains localizing to the left lower quadrant. Tylenol has not helped with the pain and movement makes it worse. She has associated nausea. PMH is pertinent for abdominal mass adjacent to the descending colon that last measured 3.8cm x 2.4cm on 06/2020, diverticulosis, CHF, AFIB, HTN and constipation (last bowel movement three days ago). The patient is being followed by [facility] for abdominal mass, which she is undergoing surgery for on 09/05/2020. (+) for SOB, runny nose, nausea, chest tightness, and pedal edema. Denies the following: F/C, blood in stool, dysuria, increased urinary frequency, incomplete empyting, vomiting, and abnormal vaginal discharge. Timing/Duration: 1 Week Severity/Quality: Mild, Moderate, Severe, Dull, Stabbing, Other (Progressive in nature) Location: RLQ, LLQ, Periumbilical Radiation: Back Activities at Onset: None Modifying Factors: Improves With Lying down, Improves With Movement Associated Symptoms: Nausea/Vomiting (SASHA PASCUAL) Initial Comments I personally interviewed and examined this patient following MS 4. She additionally complained of some chest pressure which she states is intermittent and associated with her atrial fibrillation. She also had some stridorous breathing which seem to be an emotional response. The stridorous breathing resolved when she is distracted by conversation. (NY JONES MD) Allergies and Home Medications Allergies Coded Allergies: Penicillins (Verified Allergy, Mild, 01/04/14) Wefjoxs-Mwf-Sok Reductase Inhibitor (Verified Allergy, Mild, 01/04/14) codeine (Verified Allergy, Mild, 01/04/14) opium tincture (Verified Allergy, Mild, 01/04/14) tramadol (Verified Allergy, Mild, 01/04/14) Home Medications Amlodipine Besylate 10 Mg Tablet, 10 MG PO DAILY, (Reported) Atorvastatin Calcium 10 Mg Tablet, 10 MG PO HS, (Reported) Fluticasone Propionate 1 Ea Aero, 2 EA IH BID, (Reported) Hydrocodone/Acetaminophen 1 Each Tablet, 1 TAB PO Q6H PRN for PAIN-MODERATE (5- 7) Prescribed by: NY BULL on 08/31/20 1714 Hydroxyzine HCl 25 Mg Tablet, 25 MG PO BID, (Reported) Levothyroxine Sodium 125 Mcg Tablet, 125 MCG PO DAILY, (Reported) Metoprolol Succinate 200 Mg Tab.er.24h, 200 MG PO DAILY, (Reported) Montelukast Sodium 10 Mg Tablet, 10 MG PO DAILY, (Reported) Ondansetron 4 Mg Tab.rapdis, 4 MG PO Q4H PRN for NAUSEA/VOMITING Prescribed by: NY BULL on 08/31/20 1713 Trazodone HCl 50 Mg Tablet, 50 MG PO HS, (Reported) Patient Home Medication List Home Medication List Reviewed: Yes (NY JONES MD) Review of Systems Review of Systems Constitutional: no symptoms reported EENTM: Nose Congestion Respiratory: Denies Cough; Shortness of Air Cardiovascular: Chest Pain Gastrointestinal: Abdominal Pain; Denies Blood Streaked Stools; Constipated, Nausea; Denies Rectal Bleeding, Denies Vomiting Genitourinary: No Symptoms Reported Musculoskeletal: no symptoms reported Skin: no symptoms reported Psychiatric/Neurological: No Symptoms Reported Hematologic/Lymphatic: No Symptoms Reported (SAMARASASHA marker.to RHONDA) Past Nkrnsgr-Gvjxkm-Dkgczk Hx Patient Social History Alcohol Use: Rarely Uses Alcohol Beverage of Choice: Rum Smoking Status: Never a Smoker Type Used: Cigarettes Former Smoker, Quit: Jun 04, 2000 2nd Hand Smoke Exposure: Yes Recent Infectious Disease Expo: No Recent Hopitalizations: Yes (COLONOSCOPY) (SASHA PASCUAL marker.to RHONDA) Immunizations Up To Date Tetanus Booster (TDap): Unknown Date of Pneumonia Vaccine: Jul 18, 2015 Date of Influenza Vaccine: Jul 18, 2015 (SAMARASASHA Pocket Social[employer]) Seasonal Allergies Seasonal Allergies: Yes (SAMARA,ClassOwl) Past Medical History Surgeries: Yes (DENTAL;HEMORRHOIDECTOMY;CARDIAC CATHS-NO INTERVENTION;LOOP RECORDER;CATARAC) Cardiac, Eye Surgery, Rectal, Tubal Ligation Respiratory: Yes Asthma, Sleep Apnea Currently Using CPAP: No (PATIENT WEARS 02 AT NIGHT (3L/NC) ) Currently Using BIPAP: No Cardiac: Yes ( CHF;'HOLE IN MY HEART"PER PT;CARDIAC CATHS-NO INTERVENTION; LOOP RECORDER;) Atrial Fibrillation, Coronary Artery Disease, High Cholesterol, Hypertension, Irregular Heartbeat, Peripheral Vascular Neurological: Yes Neuropathy 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 Disorders: No 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 Disorders: 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 Sexually Transmitted Disease: No HIV/AIDS: No Genitourinary: Yes (INCONTINENCE) Bladder Infection, UTI-Chronic Gastrointestinal: Yes Gastroesophageal Reflux, Chronic Constipation, Hemorrhoids, Irritable Bowel Musculoskeletal: Yes (CHRONIC NECK, BACK AND KNEE PAIN) Osteoporosis, Arthritis, Fibromyalgia, Chronic Back Pain Endocrine: Yes (HYPOGLYCEMIA; OBESITY) Hypothyroidsim HEENT: Yes (WEARS GLASSES; CATARACT SURGERY) Cataract Hearing Impairment: Hard of Hearing Cancer: No Psychosocial: Yes Anxiety Integumentary: No Blood Disorders: No (HX ANEMIA) Adverse Reaction/Blood Tranf: No (N/A) (SAMARASASHA Pocket Social[employer]) Family Medical History Dementia 19 FATHER Drug abuse G8 BROTHER G8 SISTER FH: pancreatic cancer 19 MOTHER ( OF PANCREATIC CA AGE 67) Thyroid disease 19 MOTHER CARDIAC CATHS--LAST ONE 04/12/19--MINIMAL SMALL VESSEL DISEASE, NO INTERVENTION LOOP RECORDER PLACED 12/10/18 FOR CHRONIC ATRIAL FIBRILLATION CAROTID STENOSIS (SAMARACannaeON Pocket SocialEN) Physical Exam Vital Signs Vital Signs - First Documented 08/31/20 14:15 Temp 35.9 Pulse 85 Resp 18 B/P (MAP) 141/71 (94) Pulse Ox 95 (NY JONES MD) Vital Signs Capillary Refill : Less Than 3 Seconds (SAMARASASHA [employer]) Height/Weight/BMI Height: 5'7.00" Weight: 235lbs. 11.2oz. 106.937135ng; 35.00 BMI Method:Stated General Appearance: moderate distress, obese Neck: non-tender, full range of motion Respiratory: chest non-tender, no respiratory distress, no accessory muscle use Cardiovascular: normal peripheral pulses, regular rate, rhythm, other (Pedal edema) Peripheral Pulses: 2+ Radial Pulses (R), 2+ Radial Pulses (L) Gastrointestinal: guarding (LLQ), tenderness (RLQ, and LLQ) Extremities: calf tenderness (BL) Back: no CVA tenderness, no vertebral tenderness Neurologic/Psychiatric: alert, oriented x 3 Skin: normal color, warm/dry (SAMARA,SASHA MED STUDEN) Progress/Results/Core Measures Results/Orders Lab Results Laboratory Tests Test 08/31/20 14:25 08/31/20 15:37 08/31/20 16:12 Range/Units White Blood Count 2.8 L 4.3-11.0 10^3/uL Red Blood Count 4.22 3.80-5.11 10^6/uL Hemoglobin 10.8 L 11.5-16.0 g/dL Hematocrit 35 35-52 % Mean Corpuscular Volume 83 80-99 fL Mean Corpuscular Hemoglobin 26 25-34 pg Mean Corpuscular Hemoglobin Concent 31 L 32-36 g/dL Red Cell Distribution Width 14.5 10.0-14.5 % Platelet Count 177 130-400 10^3/uL Mean Platelet Volume 8.8 L 9.0-12.2 fL Immature Granulocyte % (Auto) 0 % Neutrophils (%) (Auto) 66 42-75 % Lymphocytes (%) (Auto) 21 12-44 % Monocytes (%) (Auto) 10 0-12 % Eosinophils (%) (Auto) 3 0-10 % Basophils (%) (Auto) 0 0-10 % Neutrophils # (Auto) 1.8 1.8-7.8 10^3/uL Lymphocytes # (Auto) 0.6 L 1.0-4.0 10^3/uL Monocytes # (Auto) 0.3 0.0-1.0 10^3/uL Eosinophils # (Auto) 0.1 0.0-0.3 10^3/uL Basophils # (Auto) 0.0 0.0-0.1 10^3/uL Immature Granulocyte # (Auto) 0.0 0.0-0.1 10^3/uL Sodium Level 140 135-145 MMOL/L Potassium Level 4.1 3.6-5.0 MMOL/L Chloride Level 107 98-107 MMOL/L Carbon Dioxide Level 22 21-32 MMOL/L Anion Gap 11 5-14 MMOL/L Blood Urea Nitrogen 17 7-18 MG/DL Creatinine 1.19 0.60-1.30 MG/DL Estimat Glomerular Filtration Rate 45 BUN/Creatinine Ratio 14 Glucose Level 105 70-105 MG/DL Calcium Level 8.7 8.5-10.1 MG/DL Corrected Calcium 8.8 8.5-10.1 MG/DL Total Bilirubin 0.9 0.1-1.0 MG/DL Aspartate Amino Transf (AST/SGOT) 19 5-34 U/L Alanine Aminotransferase (ALT/SGPT) 16 0-55 U/L Alkaline Phosphatase 68 40-136 U/L Troponin I < 0.028 <0.028 NG/ML C-Reactive Protein High Sensitivity 0.22 0.00-0.50 MG/DL Total Protein 6.8 6.4-8.2 GM/DL Albumin 3.9 3.2-4.5 GM/DL Lipase 25 8-78 U/L Coronavirus 2019 (KING) Negative Negative Urine Color YELLOW Urine Clarity CLEAR Urine pH 5.5 5-9 Urine Specific [place] 1.020 1.016-1.022 Urine Protein NEGATIVE NEGATIVE Urine Glucose (UA) NEGATIVE NEGATIVE Urine Ketones NEGATIVE NEGATIVE Urine Nitrite NEGATIVE NEGATIVE Urine Bilirubin NEGATIVE NEGATIVE Urine Urobilinogen 0.2 < = 1.0 MG/DL Urine Leukocyte Esterase NEGATIVE NEGATIVE Urine RBC (Auto) NEGATIVE NEGATIVE Urine RBC NONE /HPF Urine WBC RARE /HPF Urine Squamous Epithelial Cells RARE /HPF Urine Crystals NONE /LPF Urine Bacteria NEGATIVE /HPF Urine Casts NONE /LPF Urine Mucus NEGATIVE /LPF Urine Culture Indicated NO (NY JONES MD) My Orders Orders - NY JONES MD Cbc With Automated Diff (08/31/20 14:09) Comprehensive Metabolic Panel (08/31/20 14:09) Hs C Reactive Protein (08/31/20 14:09) Lipase (08/31/20 14:09) Ua Culture If Indicated (08/31/20 14:09) Ed Iv/Invasive Line Start (08/31/20 14:09) Ondansetron Injection (Zofran Injectio (08/31/20 15:00) Fentanyl Injection (Sublimaze Injection (08/31/20 15:00) Lactated Ringers (Lr 1000 Ml Iv Solution (08/31/20 15:00) Ct Abdomen/Pelvis W (08/31/20 15:19) Troponin I (08/31/20 15:20) Ekg Tracing (08/31/20 15:20) Monitor-Rhythm Ecg Trace Only (08/31/20 15:20) Iohexol Injection (Omnipaque 350 Mg/Ml 1 (08/31/20 15:30) Received Contrast (Hold Metformin- Contr (08/31/20 15:30) Sodium Chloride Flush (Catheter Flush Sy (08/31/20 15:30) Ns (Ivpb) (Sodium Chloride 0.9% Ivpb Bag (08/31/20 15:30) Covid 19 Inhouse Test (08/31/20 15:55) (NY JONES MD) Medications Given in ED Current Medications Medications Dose Ordered Sig/Kareem Route Start Time Stop Time Status Last Admin Dose Admin Fentanyl Citrate 50 mcg ONCE ONCE IVP 08/31/20 15:00 08/31/20 15:01 DC 08/31/20 15:04 50 MCG Iohexol 100 ml ONCE ONCE IV 08/31/20 15:30 08/31/20 15:31 DC 08/31/20 15:49 100 ML Lactated Ringer's 1,000 ml @ 0 mls/hr Q0M ONCE IV 08/31/20 15:00 08/31/20 15:01 DC 08/31/20 15:04 1,000 MLS/HR Ondansetron HCl 8 mg ONCE ONCE IVP 08/31/20 15:00 08/31/20 15:01 DC 08/31/20 15:04 8 MG Sodium Chloride 10 ml NEEDED PRN IV 08/31/20 15:30 08/31/20 17:12 DC 08/31/20 15:49 10 ML Sodium Chloride 100 ml ONCE ONCE IV 08/31/20 15:30 08/31/20 15:31 DC 08/31/20 15:49 80 ML (NY JONES MD) Vital Signs/I&O 08/31/20 2 14:15 17:02 Temp 35.9 Pulse 85 75 Resp 18 18 B/P (MAP) 141/71 (94) 125/68 (94) Pulse Ox 95 95 (NY JONES MD) Blood Pressure Mean: 94 Progress Progress Note : Time: 15:00 Progress Note Started patient on fentynl for pain control,Zofran for nausea and fluids Ordered CBC with Diff, CMP Will obtain CT to rule out surgical pathology, discussed risk, benefits and al ternatives and patients would like to proceed. (SASHA PASCUAL) Initial ECG Impression Date: Aug 31, 2020 Initial ECG Impression Time: 16:33 Initial ECG Rate: 88 Initial ECG Rhythm: A Fib/Flutter Comment Atrial fibrillation, rate controlled. No ST elevation or depression. Compared with prior with no significant changes. (NY JONES MD) Diagnostic Imaging Diagonstic Imaging: CT Plain Films/CT/US/NM/MRI: abdomen, pelvis Comments CT abdomen and pelvis viewed by me and report reviewed. See report below: NAME: SHWETA SIMENTAL [employer] REC#: [id number] PT STATUS: REG ER : 1945 PHYSICIAN: NY JONES MD ADMIT DATE: 08/31/20/ER Signed Date of Exam:08/31/20 CT ABDOMEN/PELVIS W CT ABDOMEN/PELVIS W TECHNIQUE: Multiple contiguous axial images were obtained through the abdomen and pelvis after administration of intravenous contrast. All CT scans use one or more of the following dose optimizing techniques: automated exposure control, MA and/or KvP adjustment based on patient size and exam type or iterative reconstruction. INDICATION: Colon mass. COMPARISON: CT abdomen and pelvis of 07/05/2020. FINDINGS: Lower chest: The lung bases are clear. No pericardial or pleural effusion. Peritoneum: No free intraperitoneal air or fluid. Liver and biliary system: The liver is normal. The gallbladder is normal. No biliary duct dilation. Spleen and Pancreas: Spleen is normal. The pancreas enhances normally without mass lesion or peripancreatic inflammatory changes. Adrenals: Normal. tract: The kidneys enhance normally without suspicious mass or obstruction. Urinary bladder is distended without wall thickening. Uterus and ovaries are normal in appearance. GI tract: Stomach is decompressed. No bowel obstruction. Unchanged exophytic soft tissue mass located in the mid aspect of descending colon. The exophytic component measures approximately 3.7 x 2.5 cm (previously 3.8 x 2.4 cm). Diverticulosis without superimposed diverticulitis is also present in the descending and sigmoid colon. No obstruction of the colon. Vasculature and Lymph nodes: Normal caliber aorta. No abdominal or pelvic lymphadenopathy. Musculoskeletal: No concerning osseous lesion. IMPRESSION: 1. No change in the exophytic mass involving the descending colon most compatible with a primary colon cancer. There is no associated colonic obstruction. 2. No features of metastatic disease in the abdomen or pelvis. Specifically, no liver metastases are appreciated. Dictated by: Dictated on workstation # [id number] Dict: 08/31/20 1559 Trans: 08/31/201656 [facility] [id number] Interpreted by: JULIENNE WRIGHT MD Electronically signed by: JULIENNE WRIGHT MD 08/31/201656 (NY JONES MD) Departure Impression Primary Impression: Left lower quadrant pain Additional Impressions: Mass of colon Chest pressure Anxiety Disposition: 01 HOME, SELF-CARE Condition: Improved Departure-Patient Inst. Decision time for Depature: 16:59 (NY JONES MD) Referrals: ZEB MONTERO MD (PCP/Family) Primary Care Physician Patient Instructions: Severe Abdominal Pain, Adult (DC) Add. Discharge Instructions: The exact cause of your abdominal pain was not determined today, but it may be related to the colon mass itself. Use hydrocodone as prescribed for more severe pain. You may use Tylenol alone for more mild pain. It may be conklin to use a stool softener such as Colace while on hydrocodone to prevent constipation. Follow additional instructions as directed by your primary care and surgical teams. Return to the emergency room if you have worsening symptoms. Call with questions or concerns. All discharge instructions reviewed with patient and/or family. Voiced understanding. Scripts Ondansetron (Ondansetron Odt) 4 Mg Tab.rapdis 4 MG PO Q4H PRN for NAUSEA/VOMITING, #10 TAB Prov: NY JONES MD 08/31/20 Hydrocodone/Acetaminophen (Hydrocodone-Acetamin 5-325 mg) 1 Each Tablet 1 TAB PO Q6H PRN for PAIN-MODERATE (5-7), #15 TAB Prov: NY JONES MD 08/31/20 Medical Student Attestation and Attending Note: I have personally interviewed and examined this patient along with Sasha Edmond, MS 4. I have reviewed student documentation including history, physical, and assessments. I agree with the documentation except where otherwise noted. Patient's work-up was essentially unremarkable. The mass in the left abdomen is an exophytic colonic mass and is relatively unchanged from prior imaging. There appear to be no complicating findings on imaging such as bowel obstruction, diverticulitis, etc. Pain was treated with fentanyl. Patient was hydrated and given Zofran. Because of her runny nose and chest tightness a rapid Covid swab was obtained and was negative. Patient was given reassurance and ultimately discharged with a short supply of pain medication to get her through until surgery. Exam: General: Alert, oriented, no acute distress, well developed HEENT: Normocephalic and atraumatic, stridorous breathing that resolves when patient is distracted with conversation Heart: Irregular without murmur Lungs: Clear to auscultation bilaterally with normal effort Abdomen: Soft, tender across the lower abdomen, left greater than right, nondistended, normal bowel sounds Neuropsych: Alert, oriented, no focal deficits, anxious Skin: Warm and dry without rashes (NY JONES MD) Copy Copies To 1: ZEB MONTERO MD, [facility] Aug 31, 2020 15:12 NY JONES MD Aug 31, 2020 17:04
[2020-08-31] MEDS ORDERED: IOHEXOL 350 MG/ML 100 ML (OMNIPAQUE 350) VIAL IV ONE (15:30)
[2020-08-31] MEDS ORDERED: HOLD METFORMIN - RECEIVED CONTRAST 20 ML VIAL IV SCH (15:30)
[2020-08-31] MEDS ORDERED: NS 100 ML (IVPB) BAG IV ONE (15:30)
[2020-08-31] MEDS ORDERED: CATHETER FLUSH 10 ML SYR IV PRN (15:30)
--- NOTE | 2020-08-31 16:17 | Diagnostic Imaging Report ---
CT ABDOMEN/PELVIS W TECHNIQUE: Multiple contiguous axial images were obtained through the abdomen and pelvis after administration of intravenous contrast. All CT scans use one or more of the following dose optimizing techniques: automated exposure control, MA and/or KvP adjustment based on patient size and exam type or iterative reconstruction. INDICATION: Colon mass. COMPARISON: CT abdomen and pelvis of 07/05/2020. FINDINGS: Lower chest: The lung bases are clear. No pericardial or pleural effusion. Peritoneum: No free intraperitoneal air or fluid. Liver and biliary system: The liver is normal. The gallbladder is normal. No biliary duct dilation. Spleen and Pancreas: Spleen is normal. The pancreas enhances normally without mass lesion or peripancreatic inflammatory changes. Adrenals: Normal. tract: The kidneys enhance normally without suspicious mass or obstruction. Urinary bladder is distended without wall thickening. Uterus and ovaries are normal in appearance. GI tract: Stomach is decompressed. No bowel obstruction. Unchanged exophytic soft tissue mass located in the mid aspect of descending colon. The exophytic component measures approximately 3.7 x 2.5 cm (previously 3.8 x 2.4 cm). Diverticulosis without superimposed diverticulitis is also present in the descending and sigmoid colon. No obstruction of the colon. Vasculature and Lymph nodes: Normal caliber aorta. No abdominal or pelvic lymphadenopathy. Musculoskeletal: No concerning osseous lesion. IMPRESSION: 1. No change in the exophytic mass involving the descending colon most compatible with a primary colon cancer. There is no associated colonic obstruction. 2. No features of metastatic disease in the abdomen or pelvis. Specifically, no liver metastases are appreciated. Dictated by: Dictated on workstation # [id number]
[2020-08-31 16:18] LABS: BILIRUBIN,URINE NEGATIVE (NEGATIVE); CLARITY,URINE CLEAR; COLOR,URINE YELLOW; GLUCOSE, URINE (UA) NEGATIVE (NEGATIVE); KETONES,URINE NEGATIVE (NEGATIVE); LEUKOCYTE ESTERASE ,URINE NEGATIVE (NEGATIVE); NITRITE,URINE NEGATIVE (NEGATIVE); PH,URINE 5.5 (5-9); PROTEIN,URINE NEGATIVE (NEGATIVE)
[2020-08-31 16:26] LABS: BACTERIA,URINE NEGATIVE /HPF; SQUAMOUS EPITHELIAL CELL,UR RARE /HPF; WBC,URINE RARE /HPF
[2020-08-31 17:02] VITALS: BP 125/68
[2020-08-31] MEDS ORDERED: ACHD5005 PO ×2 (17:04→17:13)
[2020-08-31] MEDS ORDERED: ONDA4TAB11 PO ×2 (17:04→17:13)
== END 2020-08-31 17:11 | disposition home or self-care (01) ==
LOC: EDUNIT# 14:04 → ER 14:06
DX: R10.32 Left lower quadrant pain (principal); K63.9 Disease of intestine, unspecified; R07.89 Other chest pain; F41.9 Anxiety disorder, unspecified; E66.9 Obesity, unspecified; G89.29 Other chronic pain; M54.9 Dorsalgia, unspecified; E78.00 Pure hypercholesterolemia, unspecified; I25.10 Atherosclerotic heart disease of native coronary artery without angina pectoris; E03.9 Hypothyroidism, unspecified; I10 Essential (primary) hypertension; Z68.35 Body mass index [BMI] 35.0-35.9, adult; Z88.0 Allergy status to penicillin; Z88.5 Allergy status to narcotic agent; Z88.8 Allergy status to other drugs, medicaments and biological substances; Z87.891 Personal history of nicotine dependence; Z95.9 Presence of cardiac and vascular implant and graft, unspecified; Z80.0 Family history of malignant neoplasm of digestive organs; Z20.822 Contact with and (suspected) exposure to COVID-19; Z79.890 Hormone replacement therapy; Z79.891 Long term (current) use of opiate analgesic
CPT/HCPCS: 74177; 80053; 81000; 83690; 84484; 85025; 86141; 99284; U0002; 36415; 87635; 93005

== ENCOUNTER 2020-10-09 13:28 | Outpatient (RCR) | payer MEDICARE, MEDICAID ==
[~2020-10-09] VITALS: Ht 170.2 cm; Wt 98.0 kg
[~2020-10-09 13:28] MED LIST changes: +ONDA4TAB11 PO
[2020-10-15] MEDS ORDERED: NS IV 1000 ML (CANCER CTR) IV SCH (10:15)
[2020-10-15] MEDS ORDERED: diphenhydrAMINE 25 MG TAB (BENADRYL) CANCER CENTER PO SCH (10:15)
[2020-10-15] MEDS ORDERED: FAMOTIDINE 20MG/2ML IV (CANCER CTR) IV SCH (10:15)
[2020-10-15] MEDS ORDERED: RIVA20TA PO (11:21)
== END 2020-10-25 10:15 | disposition still patient (30) ==
LOC: ONC 13:28
PROVIDERS: ATTEND Internal Medicine Hematology & Oncology
DX: C56.9 Malignant neoplasm of unspecified ovary (principal); C48.2 Malignant neoplasm of peritoneum, unspecified; D72.819 Decreased white blood cell count, unspecified; I25.10 Atherosclerotic heart disease of native coronary artery without angina pectoris; I48.91 Unspecified atrial fibrillation; J44.9 Chronic obstructive pulmonary disease, unspecified; N39.0 Urinary tract infection, site not specified; D64.9 Anemia, unspecified; I10 Essential (primary) hypertension; E03.9 Hypothyroidism, unspecified; E78.2 Mixed hyperlipidemia; Z87.891 Personal history of nicotine dependence
CPT/HCPCS: 99213

== ENCOUNTER 2020-10-12 13:21 | Emergency (ER) | payer MEDICARE, MEDICAID ==
[~2020-10-12] VITALS: Ht 170 cm; Wt 97.0 kg
[2020-10-12] MEDS ORDERED: NS IV 1000 ML 1,000 ML IV STA (13:54)
[2020-10-12] MEDS ORDERED: fentaNYL INJ 100 MCG/2 ML AMP IVP STA (13:54)
[2020-10-12 13:56] LABS: BASOPHILS % (AUTO) 1 % (0-10); EOSINOPHILS # (AUTO) 0.1 10^3/uL (0.0-0.3); EOSINOPHILS % (AUTO) 4 % (0-10); HEMATOCRIT 31 % (35-52); HEMOGLOBIN 9.7 g/dL (11.5-16.0); LYMPHOCYTES # (AUTO) 0.6 10^3/uL (1.0-4.0); LYMPHOCYTES % (AUTO) 23 % (12-44); MEAN CORPUSCULAR HEMOGLOBIN 26 pg (25-34); MEAN CORPUSCULAR HGB CONC 31 g/dL (32-36); MEAN CORPUSCULAR VOLUME 85 fL (80-99); MEAN PLATELET VOLUME 9.2 fL (9.0-12.2); MONOCYTES # (AUTO) 0.3 10^3/uL (0.0-1.0); MONOCYTES % (AUTO) 11 % (0-12); NEUTROPHILS # (AUTO) 1.5 10^3/uL (1.8-7.8); NEUTROPHILS % (AUTO) 60 % (42-75); PLATELET COUNT 198 10^3/uL (130-400); WHITE BLOOD COUNT 2.5 10^3/uL (4.3-11.0)
[2020-10-12] MEDS ORDERED: ONDANSETRON 4 MG/2 ML (SDV) Z0FRAN IVP ONE (14:00)
[2020-10-12 14:08] LABS: ALBUMIN 3.9 GM/DL (3.2-4.5)
[2020-10-12 14:09] LABS: POTASSIUM 4.3 MMOL/L (3.6-5.0)
[2020-10-12 14:10] LABS: CALCIUM 9.3 MG/DL (8.5-10.1); INR 2.3 (0.8-1.4); PROTHROMBIN TIME PATIENT 25.5 SEC (12.2-14.7)
[2020-10-12 14:11] LABS: TOTAL PROTEIN 6.5 GM/DL (6.4-8.2)
--- NOTE | 2020-10-12 14:11 | ED Abdominal Pain ---
General Chief Complaint: Abdominal/GI Problems Stated Complaint: ABD PAIN/RECTAL BLEEDING Nursing Triage Note: PT CO OF ABD PAIN STATES HAS HAD RECENT SURG ABD FOR CA AND ALSO HYSTERECTOMY. PT STATES IS PASSING BLOOD FROM RECTUM WHEN HAS BM Sepsis Screen: No Definite Risk Source of Information: Patient Exam Limitations: No Limitations History of Present Illness Date Seen by Provider: Oct 12, 2020 Time Seen by Provider: 13:41 Initial Comments Here with report of rectal bleeding for the last week and increasing central abdominal pain for the last few days. She has had that abdominal pain for quite some time and had partial colectomy and hysterectomy due to cancer in August of this year. That was done at . She follows with Dr. Brush. Does admit to harder stools and believes she may have a hemorrhoid. Has had some nausea with the pain. Denies vomiting. Has had intermittently loose stools. Pain is worse in the central upper abdomen and states that she is starting to feel a fullness there and is concerned due to the history of cancer. Denies fever or chills. Denies upper respiratory illnesses or exposure to COVID-19. She has not had Covid vaccine. Patient was recently started on Xarelto. Timing/Duration: 1 Week, Changing Over Time, Getting Worse Severity/Quality: Moderate, Aching Location: Epigastric Radiation: No Radiation Activities at Onset: None Modifying Factors: Worsens With Eating, Worsens With Movement Associated Symptoms: No Back Pain, No Chest Pain, No Fever/Chills; Nausea/Vomiting; No Shortness of Air; Swelling/Mass in Abdomen; No Weakness Allergies and Home Medications Allergies Coded Allergies: Penicillins (Verified Allergy, Mild, 01/04/14) Wgqmixd-Nuh-Jkn Reductase Inhibitor (Verified Allergy, Mild, 01/04/14) codeine (Verified Allergy, Mild, 01/04/14) opium tincture (Verified Allergy, Mild, 01/04/14) tramadol (Verified Allergy, Mild, 01/04/14) Home Medications Amlodipine Besylate 10 Mg Tablet, 10 MG PO DAILY, (Reported) Atorvastatin Calcium 10 Mg Tablet, 10 MG PO HS, (Reported) Fluticasone Propionate 1 Ea Aero, 2 EA IH BID, (Reported) Hydrocodone/Acetaminophen 1 Each Tablet, 1 TAB PO Q6H PRN for PAIN-MODERATE (5- 7) Prescribed by: NY BULL on 08/31/20 1714 Hydroxyzine HCl 25 Mg Tablet, 25 MG PO BID, (Reported) Levothyroxine Sodium 125 Mcg Tablet, 125 MCG PO DAILY, (Reported) Metoprolol Succinate 200 Mg Tab.er.24h, 200 MG PO DAILY, (Reported) Montelukast Sodium 10 Mg Tablet, 10 MG PO DAILY, (Reported) Ondansetron 4 Mg Tab.rapdis, 4 MG PO Q4H PRN for NAUSEA/VOMITING Prescribed by: NY BULL on 08/31/20 1713 Trazodone HCl 50 Mg Tablet, 50 MG PO HS, (Reported) Patient Home Medication List Home Medication List Reviewed: Yes Review of Systems Review of Systems Constitutional: see HPI; No chills, No fever EENTM: No Symptoms Reported Respiratory: Denies Cough, Denies Shortness of Air Cardiovascular: Denies Chest Pain, Denies Edema Gastrointestinal: Abdominal Pain, Constipated, Diarrhea, Nausea, Rectal Bleeding; Denies Vomiting Genitourinary: No Symptoms Reported Musculoskeletal: No back pain, No joint pain Skin: No change in color, No lesions Psychiatric/Neurological: No Symptoms Reported All Other Systems Reviewed Negative Unless Noted: Yes Past Qbzixif-Dofqfg-Qdxzia Hx Past Med/Social Hx: Reviewed Nursing Past Med/Soc Hx Patient Social History Alcohol Use: Denies Use Alcohol Beverage of Choice: Rum Smoking Status: Never a Smoker Type Used: Cigarettes Former Smoker, Quit: Jun 04, 2000 2nd Hand Smoke Exposure: Yes Recent Infectious Disease Expo: No Recent Hopitalizations: Yes (COLONOSCOPY) Immunizations Up To Date Tetanus Booster (TDap): Unknown Date of Pneumonia Vaccine: Jul 18, 2015 Date of Influenza Vaccine: Jul 18, 2015 Seasonal Allergies Seasonal Allergies: Yes Past Medical History Surgeries: Yes (DENTAL;HEMORRHOIDECTOMY;CARDIAC CATHS-NO INTERVENTION;LOOP RECORDER;CATARAC) Abdominal, Cardiac, Eye Surgery, Hysterectomy, Rectal, Tubal Ligation Respiratory: Yes Asthma, Sleep Apnea Currently Using CPAP: No (PATIENT WEARS 02 AT NIGHT (3L/NC) ) Currently Using BIPAP: No Cardiac: Yes ( CHF;'HOLE IN MY HEART"PER PT;CARDIAC CATHS-NO INTERVENTION; LOOP RECORDER;) Atrial Fibrillation, Coronary Artery Disease, High Cholesterol, Hypertension, Irregular Heartbeat, Peripheral Vascular Neurological: Yes Neuropathy 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 Disorders: No 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 Disorders: Denies [employer] History: Hysterectomy Sexually Transmitted Disease: No HIV/AIDS: No Genitourinary: Yes (INCONTINENCE) Bladder Infection, UTI-Chronic Gastrointestinal: Yes Gastroesophageal Reflux, Chronic Constipation, Hemorrhoids, Irritable Bowel Musculoskeletal: Yes (CHRONIC NECK, BACK AND KNEE PAIN) Osteoporosis, Arthritis, Fibromyalgia, Chronic Back Pain Endocrine: Yes (HYPOGLYCEMIA; OBESITY) Hypothyroidsim HEENT: Yes (WEARS GLASSES; CATARACT SURGERY) Cataract Hearing Impairment: Hard of Hearing Cancer: Yes Ovarian Did You Recieve Any Treatments: Yes What Type of Treatment Did You: Surgical Intervention MEETS NEXT WEEK W ONCOLOGIST Psychosocial: Yes Anxiety Integumentary: No Blood Disorders: No (HX ANEMIA) Adverse Reaction/Blood Tranf: No (N/A) Family Medical History Reviewed Nursing Family Hx Dementia 19 FATHER Drug abuse G8 BROTHER G8 SISTER FH: pancreatic cancer 19 MOTHER ( OF PANCREATIC CA AGE 67) Thyroid disease 19 MOTHER CARDIAC CATHS--LAST ONE 04/12/19--MINIMAL SMALL VESSEL DISEASE, NO INTERVENTION LOOP RECORDER PLACED 12/10/18 FOR CHRONIC ATRIAL FIBRILLATION CAROTID STENOSIS Physical Exam Vital Signs Vital Signs - First Documented 10/12/20 13:56 Temp 36.6 Pulse 93 Resp 20 B/P (MAP) 147/87 (107) Pulse Ox 97 Capillary Refill : Less Than 3 Seconds Height/Weight/BMI Height: 5'7.00" Weight: 235lbs. 11.2oz. 106.874763ul; 33.00 BMI Method:Stated General Appearance: WD/WN, mild distress HEENT: PERRL/EOMI, pharynx normal Neck: full range of motion, supple Respiratory: lungs clear, normal breath sounds Cardiovascular: regular rate, rhythm, no murmur Peripheral Pulses: 2+ Dorsalis Pedis (R), 2+ Left Dors-Pedis (L), 2+ Radial Pulses (R), 2+ Radial Pulses (L) Gastrointestinal: normal bowel sounds, soft; No guarding, No rebound; tenderness (Central abdomen upper area) Rectal: heme positive stool (Stool contaminated with blood from hemorrhoid), hemorrhoids (1 cm at the 12 o'clock position. This does have small amount of oozing blood when touched and is tender.), tenderness Back: normal inspection, no CVA tenderness, no vertebral tenderness Neurologic/Psychiatric: alert, oriented x 3 Skin: normal color, warm/dry Progress/Results/Core Measures Results/Orders Lab Results Laboratory Tests Test 10/12/20 13:40 10/12/20 16:00 Range/Units White Blood Count 2.5 L 4.3-11.0 10^3/uL Red Blood Count 3.71 L 3.80-5.11 10^6/uL Hemoglobin 9.7 L 11.5-16.0 g/dL Hematocrit 31 L 35-52 % Mean Corpuscular Volume 85 80-99 fL Mean Corpuscular Hemoglobin 26 25-34 pg Mean Corpuscular Hemoglobin Concent 31 L 32-36 g/dL Red Cell Distribution Width 14.1 10.0-14.5 % Platelet Count 198 130-400 10^3/uL Mean Platelet Volume 9.2 9.0-12.2 fL Immature Granulocyte % (Auto) 0 % Neutrophils (%) (Auto) 60 42-75 % Lymphocytes (%) (Auto) 23 12-44 % Monocytes (%) (Auto) 11 0-12 % Eosinophils (%) (Auto) 4 0-10 % Basophils (%) (Auto) 1 0-10 % Neutrophils # (Auto) 1.5 L 1.8-7.8 10^3/uL Lymphocytes # (Auto) 0.6 L 1.0-4.0 10^3/uL Monocytes # (Auto) 0.3 0.0-1.0 10^3/uL Eosinophils # (Auto) 0.1 0.0-0.3 10^3/uL Basophils # (Auto) 0.0 0.0-0.1 10^3/uL Immature Granulocyte # (Auto) 0.0 0.0-0.1 10^3/uL Prothrombin Time 25.5 H 12.2-14.7 SEC INR Comment 2.3 H 0.8-1.4 Activated Partial Thromboplast Time 38 H 24-35 SEC Sodium Level 139 135-145 MMOL/L Potassium Level 4.3 3.6-5.0 MMOL/L Chloride Level 107 98-107 MMOL/L Carbon Dioxide Level 21 21-32 MMOL/L Anion Gap 11 5-14 MMOL/L Blood Urea Nitrogen 13 7-18 MG/DL Creatinine 0.96 0.60-1.30 MG/DL Estimat Glomerular Filtration Rate 57 BUN/Creatinine Ratio 14 Glucose Level 97 70-105 MG/DL Calcium Level 9.3 8.5-10.1 MG/DL Corrected Calcium 9.4 8.5-10.1 MG/DL Magnesium Level 1.9 1.6-2.4 MG/DL Total Bilirubin 1.0 0.1-1.0 MG/DL Aspartate Amino Transf (AST/SGOT) 17 5-34 U/L Alanine Aminotransferase (ALT/SGPT) 9 0-55 U/L Alkaline Phosphatase 61 40-136 U/L C-Reactive Protein High Sensitivity 0.23 0.00-0.50 MG/DL Total Protein 6.5 6.4-8.2 GM/DL Albumin 3.9 3.2-4.5 GM/DL Lipase 22 8-78 U/L Urine Color YELLOW Urine Clarity CLEAR Urine pH 7.0 5-9 Urine Specific [place] 1.010 L 1.016-1.022 Urine Protein NEGATIVE NEGATIVE Urine Glucose (UA) NEGATIVE NEGATIVE Urine Ketones NEGATIVE NEGATIVE Urine Nitrite NEGATIVE NEGATIVE Urine Bilirubin NEGATIVE NEGATIVE Urine Urobilinogen 0.2 < = 1.0 MG/DL Urine Leukocyte Esterase NEGATIVE NEGATIVE Urine RBC (Auto) NEGATIVE NEGATIVE Urine RBC NONE /HPF Urine WBC 5-10 H /HPF Urine Squamous Epithelial Cells 2-5 /HPF Urine Crystals NONE /LPF Urine Bacteria NEGATIVE /HPF Urine Casts NONE /LPF Urine Mucus NEGATIVE /LPF Urine Culture Indicated NO My Orders Orders - MODESTO HERNANDEZ MD Fentanyl Inj (Sublimaze Injection) (10/12/20 13:54) Ondansetron Injection (Zofran Injectio (10/12/20 14:00) Ns Iv 1000 Ml (Sodium Chloride 0.9%) (10/12/20 13:54) Hs C Reactive Protein (10/12/20 13:40) Lipase (10/12/20 13:40) Magnesium (10/12/20 13:40) Ct Abdomen/Pelvis W (10/12/20 14:33) Iohexol Injection (Omnipaque 350 Mg/Ml 1 (10/12/20 15:00) Received Contrast (Hold Metformin- Contr (10/12/20 15:00) Sodium Chloride Flush (Catheter Flush Sy (10/12/20 15:00) Ns (Ivpb) (Sodium Chloride 0.9% Ivpb Bag (10/12/20 15:00) Ua Culture If Indicated (10/12/20 16:04) Medications Given in ED Current Medications Medications Dose Ordered Sig/Kareem Route Start Time Stop Time Status Last Admin Dose Admin Iohexol 100 ml ONCE ONCE IV 10/12/20 15:00 10/12/20 15:01 DC 10/12/20 15:08 100 ML Ondansetron HCl 4 mg ONCE ONCE IVP 10/12/20 14:00 10/12/20 14:01 DC 10/12/20 14:33 4 MG Sodium Chloride 10 ml NEEDED PRN IV 10/12/20 15:00 10/12/20 15:08 10 ML Sodium Chloride 100 ml ONCE ONCE IV 10/12/20 15:00 10/12/20 15:01 DC 10/12/20 15:08 80 ML Vital Signs/I&O 10/12/20 13:56 Temp 36.6 Pulse 93 Resp 20 B/P (MAP) 147/87 (107) Pulse Ox 97 Blood Pressure Mean: 107 Progress Progress Note : Progress Note Seen and evaluated. IV, labs, normal saline 1 L bolus and fentanyl 50 mcg IV with Zofran 4 mg IV ordered. Anticipate CT scan. 1435: CT abdomen pelvis with contrast ordered. Monitor patient. 1728: CT results noted. UA results also noted. Overall no significant acute findings and CT is negative for acute pathology. Patient is doing okay and actually better after discussion of negative results. This may be related to difficulty with bowel movements due to narcotic. We did discuss hemorrhoid therapy as well as bowel therapy to improve bowel movements. Discharged home with return precautions. Patient verbalized understanding of instructions and agreement with plan. Diagnostic Imaging Diagonstic Imaging: CT Plain Films/CT/US/NM/MRI: abdomen, pelvis Comments [facility]. [place], [place] NAME: PACO TENA [facility] REC#: [id number] PT STATUS: REG ER : 1945 PHYSICIAN: MODESTO HERNANDEZ MD ADMIT DATE: 10/12/20/ER Signed Date of Exam:10/12/20 CT ABDOMEN/PELVIS W PROCEDURE: CT abdomen and pelvis with contrast. TECHNIQUE: All CT scans use one or more of the following dose optimizing techniques: automated exposure control, MA and/or KvP adjustment based on patient size and exam type or iterative reconstruction. INDICATION: Mid abdominal pain. History of ovarian and colon cancer. Colon surgery in August. COMPARISON STUDY: CT of the abdomen and pelvis from August 31. FINDINGS: The lung bases are clear. The liver, gallbladder, spleen, pancreas, adrenal glands and kidneys are normal. Urinary bladder appears normal. The uterus is absent. A tiny amount of free fluid is seen in the pelvis. Diverticuli without inflammation are present in the colon. There is anastomosis of the proximal sigmoid colon. No complication is identified. There is no ascites, free air or loculated fluid collection. No hernia is present. The abdominal wall incision appears unremarkable. The osseous structures demonstrate degenerative changes. No osseous metastasis is present. IMPRESSION: 1. There has been interval colonic resection with no radiographic complication. 2. Diverticulosis without inflammation. Dictated by: Dictated on workstation # [id number] Dict: 10/12/20 1518 Trans: 10/12/20 1549 [facility] [id number] Interpreted by: DARLING JARAMILLO MD Electronically signed by: DARLING JARAMILLO MD 10/12/20 1549 Reviewed: Reviewed by Me Departure Impression Primary Impression: Postoperative pain Additional Impressions: Abdominal pain Qualified Codes: R10.10 - Upper abdominal pain, unspecified Constipation Qualified Codes: K59.03 - Drug induced constipation Hemorrhoid Qualified Codes: K64.9 - Unspecified hemorrhoids Disposition: 01 HOME, SELF-CARE Condition: Stable Departure-Patient Inst. Decision time for Depature: 17:31 Referrals: ZEB BRUSH MD (PCP/Family) Primary Care Physician Patient Instructions: Dealing with Constipation from the Drugs You Take, Hemorrhoids ED, Postoperative Pain (DC), Severe Abdominal Pain, Adult (DC) Add. Discharge Instructions: All discharge instructions reviewed with patient and/or family. Voiced understanding. Continue home medications as previously prescribed. You may add MiraLAX to the generic 1 capful daily as needed to keep stools soft. You may increase or decrease the dose to keep stool in normal range. You may use khwu-sxs-hudhprw Preparation H (HC) to hemorrhoid per package directions to reduce swelling and bleeding from hemorrhoid. Keeping her stool soft will also reduce the h emorrhoid. Drink plenty of fluids. Follow-up with your doctor in a few days for recheck. Return for worse pain, fever, vomiting, weakness, breathing problems or other concerns as needed. MODESTO HERNANDEZ MD Oct 12, 2020 14:11
[2020-10-12 14:15] LABS: CREATININE SERUM 0.96 MG/DL (0.60-1.30)
[2020-10-12 14:18] LABS: MAGNESIUM 1.9 MG/DL (1.6-2.4)
[2020-10-12] MEDS ORDERED: CATHETER FLUSH 10 ML SYR IV PRN (15:00)
[2020-10-12] MEDS ORDERED: HOLD METFORMIN - RECEIVED CONTRAST 20 ML VIAL IV SCH (15:00)
[2020-10-12] MEDS ORDERED: IOHEXOL 350 MG/ML 100 ML (OMNIPAQUE 350) VIAL IV ONE (15:00)
[2020-10-12] MEDS ORDERED: NS 100 ML (IVPB) BAG IV ONE (15:00)
--- NOTE | 2020-10-12 15:26 | Diagnostic Imaging Report ---
PROCEDURE: CT abdomen and pelvis with contrast. TECHNIQUE: All CT scans use one or more of the following dose optimizing techniques: automated exposure control, MA and/or KvP adjustment based on patient size and exam type or iterative reconstruction. INDICATION: Mid abdominal pain. History of ovarian and colon cancer. Colon surgery in August. COMPARISON STUDY: CT of the abdomen and pelvis from August 31. FINDINGS: The lung bases are clear. The liver, gallbladder, spleen, pancreas, adrenal glands and kidneys are normal. Urinary bladder appears normal. The uterus is absent. A tiny amount of free fluid is seen in the pelvis. Diverticuli without inflammation are present in the colon. There is anastomosis of the proximal sigmoid colon. No complication is identified. There is no ascites, free air or loculated fluid collection. No hernia is present. The abdominal wall incision appears unremarkable. The osseous structures demonstrate degenerative changes. No osseous metastasis is present. IMPRESSION: 1. There has been interval colonic resection with no radiographic complication. 2. Diverticulosis without inflammation. Dictated by: Dictated on workstation # [id number]
[2020-10-12 16:22] LABS: CLARITY,URINE CLEAR; COLOR,URINE YELLOW
[2020-10-12 16:23] LABS: BACTERIA,URINE NEGATIVE /HPF; BILIRUBIN,URINE NEGATIVE (NEGATIVE); GLUCOSE, URINE (UA) NEGATIVE (NEGATIVE); KETONES,URINE NEGATIVE (NEGATIVE); LEUKOCYTE ESTERASE ,URINE NEGATIVE (NEGATIVE); NITRITE,URINE NEGATIVE (NEGATIVE); PROTEIN,URINE NEGATIVE (NEGATIVE)
[2020-10-12 17:45] VITALS: BP 136/82
== END 2020-10-12 17:49 | disposition home or self-care (01) ==
LOC: EDUNIT# 13:21 → ER 13:24
DX: G89.18 Other acute postprocedural pain (principal); R10.13 Epigastric pain; K59.00 Constipation, unspecified; K64.9 Unspecified hemorrhoids; I10 Essential (primary) hypertension; I25.10 Atherosclerotic heart disease of native coronary artery without angina pectoris; E78.00 Pure hypercholesterolemia, unspecified; E66.9 Obesity, unspecified; F41.9 Anxiety disorder, unspecified; G89.29 Other chronic pain; M54.9 Dorsalgia, unspecified; E03.9 Hypothyroidism, unspecified; Z88.0 Allergy status to penicillin; Z88.5 Allergy status to narcotic agent; Z88.8 Allergy status to other drugs, medicaments and biological substances; Z87.891 Personal history of nicotine dependence; Z85.43 Personal history of malignant neoplasm of ovary; Z80.0 Family history of malignant neoplasm of digestive organs; Z95.9 Presence of cardiac and vascular implant and graft, unspecified; Z68.33 Body mass index [BMI] 33.0-33.9, adult; Z79.891 Long term (current) use of opiate analgesic; Z79.890 Hormone replacement therapy
CPT/HCPCS: 36415; 74177; 80053; 81000; 83690; 83735; 85025; 85610; 85730; 86141

== ENCOUNTER 2020-10-15 07:20 | Outpatient (CLI) | payer MEDICARE, MEDICAID ==
[~2020-10-15] VITALS: Ht 170.2 cm; Wt 100.0 kg
[2020-10-15] MEDS ORDERED: RIVA20TA PO (11:21)
== END 2020-10-15 12:05 | disposition home or self-care (01) ==
LOC: PREOP 07:20
PROVIDERS: ATTEND Surgery
DX: Z01.818 Encounter for other preprocedural examination (principal)

== ENCOUNTER 2020-10-17 09:39 | Day surgery (SDC) | payer MEDICARE, MEDICAID ==
[2020-10-17] VITALS (8 sets, daily range): BP systolic 119–156; BP diastolic 69–89
[~2020-10-17] VITALS: Ht 170.2 cm; Wt 100.0 kg
[~2020-10-17 09:39] MED LIST changes: +HEParin (CENTRAL IV FLUSH) 500 UNIT/5 ML SYR ONE; +LIDOCAINE/EPI 1%-1:100,000 (XYLOCAINE) 20ML ONE; +RIVA20TA PO; +WATER (STERILE) FOR INJECTION 20 ML ONE
[2020-10-17] MEDS ORDERED: LACTATED RINGERS 1,000 ML IV PRN (09:45)
[2020-10-17] MEDS ORDERED: CLINDAMYCIN 600 MG/50 ML IVPB 50 ML IV ONE (09:45)
--- NOTE | 2020-10-17 10:19 | Progress Note-Pre Operative ---
Pre-Operative Progress Note H&P Reviewed The H&P was reviewed, patient examined and no changes noted. Date Seen by Provider: Oct 17, 2020 Time Seen by Provider: 10: Date H&P Reviewed: Oct 17, 2020 Time H&P Reviewed: 10:19 Pre-Operative Diagnosis: ovarian ca MINI HOFFMAN DO Oct 17, 2020 10:19
[2020-10-17] MEDS ORDERED: PROPOFOL INJECTION 50 ML IV ONE (11:06)
--- NOTE | 2020-10-17 11:27 | Progress Note-Post Operative ---
Post-Operative Progess Note Surgeon (s)/Home Economics Expert (s) Surgeon MINI HOFFMAN DO Home Economics Expert: na Pre-Operative Diagnosis ovarian ca Post-Operative Diagnosis same Procedure & Operative Findings Date of Procedure 10/17/20 Procedure Performed/Findings PROCEDURE: Right internal jugular port placement using ultrasound guidance. COMPLICATIONS: None. INDICATIONS: The patient is a 74 year old female with ovarian cancer. Patient understands the risks and benefits of port placement and wished to proceed with the procedure. Consent was signed on the chart. PROCEDURE: The patient was taken to the operating suite, was prepped and draped in the sterile fashion. A surgical pause was performed. Ultrasound was used to locate the internal jugular vein. Once located anesthetic was infiltrated above it. Using micro-access kit, the right internal vein was accessed. Dark nonpulsatile blood was withdrawn. The wire was inserted. Fluoroscopy assured proper placement. The needle was removed. The micro-access dilator was advanced over the wire and the wire was removed. The regular wire was inserted and fluoroscopy assured proper placement. The wire was then secured. Local anesthetic was used to anesthetize from the neck for tunneling down to the right chest and for pocket creation. A 15 blade scalpel was used to make an incision over the right chest. Cautery was used to dissect down to the pectoral fascia. A pocket was created with blunt dissection. The dilator sheath was then advanced over the wire under fluoroscopy and the dilator and wire were removed. The Groshong catheter was inserted through the sheath and the sheath was then removed. The Groshong wire was removed. The catheter was then tunneled to the right chest pocket. Fluoroscopy was used to cut to length and this was then attached to the port which was then placed within the pocket. The port was then accessed without difficulty. It was then flushed with saline and then heparin. The subcutaneous tissues were then reapproximated using 3-0 Vicryl. The areas were then washed and dried. Skin Affix was placed over incision. The insertion point of the neck Skin Affix was placed over the incision. The patient tolerated the procedure well without complication and was taken to recovery room in stable condition. Chest x-ray is pending. Anesthesia Type mac c local Estimated Blood Loss Estimated blood loss (mL): minimal Specimens/Packing Specimens Removed MINI Harper DO Oct 17, 2020 11:27
--- NOTE | 2020-10-17 11:29 | Discharge Inst-Simple/Standard ---
Discharge Inst-Standard Patient Instructions/Follow Up Plan of Care/Instructions/FU: 2-3 weeks Mishel Activity as Tolerated: No Discharge Diet: Regular Diet Other Inst to Patient Follow up Appt: Make appointment for 2-3 week. Instructions: No lifting greater than 10 pounds. No strenuous activity. May shower in 24 hours, no tub bath or soaking. Use incentive spirometer at home as directed. No Smoking Skin/Wound Care: You have special glue over your incision that will fall off on it's own. Place ice pack on 15 min and off 30 min and repeat for first 48 hours. This decreases swelling and discomfort. Symptoms to Report: Appetite Changes, Extremity Discoloration, Numbness/Tingling, Swelling Increa sed, Bleeding Excessive, Eyesight Changes, Pain Increased, Urine Color Change, Constipation(Persistent), Fever over 101 degree F, Pain/Pressure in chest, Urinating Difficulty, Cough Up/Vomit Blood, Heart Beat Irreg/Pounding, Pain/Pressure in jaw, Vaginal Bleeding Increase, Cramps in feet or legs, Lightheadedness, Pain/Pressure in shoulder, Diarrhea(Persistent), Memory Changes Suddenly, Questions/Concerns, Weight gain consecutive days, Dizziness/Fainting, Nausea/Vomiting, Shortness of Breath, Weight gain over 2 pounds If questions or concerns contact your physician Or seek help at emergency department. MINI HOFFMAN DO Oct 17, 2020 11:29
[2020-10-17] MEDS ORDERED: ONDANSETRON 4 MG/2 ML (SDV) Z0FRAN IVP PRN (11:30)
[2020-10-17] MEDS ORDERED: fentaNYL INJ 100 MCG/2 ML AMP IVP ONE (11:30)
--- NOTE | 2020-10-17 11:57 | Diagnostic Imaging Report ---
INDICATION: Status post Port-A-Cath placement. COMPARISON: 07/05/2020 FINDINGS: Single frontal radiographic view of the chest was obtained and demonstrates normal cardiac silhouette and pulmonary vasculature. Lungs are clear. There is no focal consolidation, large effusion, nor pneumothorax. Right internal jugular Port-A-Cath is seen with tip in the SVC. Osseous structures show no acute abnormalities. IMPRESSION: 1. Indwelling right internal jugular Port-A-Cath with tip in the SVC. No pneumothorax. Dictated by: Dictated on workstation # [id number]
--- NOTE | 2020-10-17 11:58 | Diagnostic Imaging Report ---
INDICATION: Port-A-Cath placement. COMPARISON: None Total fluoroscopy time: 21.6 seconds. Total number of fluoroscopic images saved: 1 FINDINGS: Fluoroscopic guidance was provided intraoperatively during Port-A-Cath placement. Image provided shows right internal jugular venous approach with central tip in the SVC. Evaluation for pneumothorax is suboptimal given fluoroscopic modality. Please note, interpreting radiologist was not present during the procedure. IMPRESSION: 1. Fluoroscopic guidance provided during Port-A-Cath placement. Dictated by: Dictated on workstation # [id number]
--- NOTE | 2020-10-17 13:38 | Anesthesia-General Post-Op ---
MAC Patient Condition Mental Status/LOC: Same as Preop Cardiovascular: Satisfactory Nausea/Vomiting: Absent Respiratory: Satisfactory Pain: Controlled Complications: Absent Post Op Complications Complications None Follow Up Care/Instructions Patient Instructions None needed. Anesthesiology Discharge Order Discharge Order Patient is doing well, no complaints, stable vital signs, no apparent adverse anesthesia problems. No complications reported per nursing. JESSICA BIRD CRNA Oct 17, 2020 13:38
== END 2020-10-17 12:55 | disposition home or self-care (01) ==
LOC: SDC 09:39
PROVIDERS: ATTEND Surgery
DX: C56.9 Malignant neoplasm of unspecified ovary (principal); I11.0 Hypertensive heart disease with heart failure; I50.9 Heart failure, unspecified; I25.10 Atherosclerotic heart disease of native coronary artery without angina pectoris; J45.909 Unspecified asthma, uncomplicated; G47.33 Obstructive sleep apnea (adult) (pediatric); I48.91 Unspecified atrial fibrillation; F41.9 Anxiety disorder, unspecified; M06.9 Rheumatoid arthritis, unspecified; K21.9 Gastro-esophageal reflux disease without esophagitis; E03.9 Hypothyroidism, unspecified; E78.2 Mixed hyperlipidemia; E78.00 Pure hypercholesterolemia, unspecified; I87.2 Venous insufficiency (chronic) (peripheral); E66.9 Obesity, unspecified; Z68.34 Body mass index [BMI] 34.0-34.9, adult; Z79.01 Long term (current) use of anticoagulants; Z79.899 Other long term (current) drug therapy; Z88.0 Allergy status to penicillin; Z88.5 Allergy status to narcotic agent; Z88.8 Allergy status to other drugs, medicaments and biological substances; Z87.891 Personal history of nicotine dependence; Z80.9 Family history of malignant neoplasm, unspecified; Z83.3 Family history of diabetes mellitus
CPT/HCPCS: 36561; 71045; 76000; 87081; C1788

== ENCOUNTER 2020-11-13 13:05 | Emergency (ER) | payer MEDICARE, MEDICAID ==
[~2020-11-13] VITALS: Ht 170 cm; Wt 98.0 kg
[~2020-11-13 13:05] MED LIST changes: -HEParin (CENTRAL IV FLUSH) 500 UNIT/5 ML SYR ONE; -LIDOCAINE/EPI 1%-1:100,000 (XYLOCAINE) 20ML ONE; -WATER (STERILE) FOR INJECTION 20 ML ONE
[2020-11-13] MEDS ORDERED: BISACODYL 10 MG SUPP (DULCOLAX) ONE (13:11)
--- NOTE | 2020-11-13 13:35 | ED GI ---
General Chief Complaint: Abdominal/GI Problems Stated Complaint: CONSTIPATION History of Present Illness Date Seen by Provider: Nov 13, 2020 Time Seen by Provider: 13:10 Initial Comments 75 year old female presents with Rectal pain and constipation. Diagnosed with Sigmoid Colon Cancer, had surgery at for partial bowel resection and is doing Chemo at [facility]. She reports her last formed BM was 1 week ago. She had nothing to eat today, other than yogurt and limited water intake. She reports the abdominal pain causes pain when she urinates. She has a compounded cream she is putting on her hemorrhoids 3 times daily. She is taking a stool softener daily but is not taking MiraLAX because of the discomfort when she passes stool. She reports passing flatus. She denies nausea or abdominal pain at this time. She takes Zofran for nausea and Oxycodone for pain, with additional Tylenol. Cautioned her to watch how much Tylenol total she is consuming and not to exceed 4 g/24 hours. Timing/Duration: 2-3 Days Severity/Quality: Mild Location: Generalized Abdomen Radiation: No Radiation Associated Symptoms: Denies Symptoms Allergies and Home Medications Allergies Coded Allergies: Penicillins (Verified Allergy, Mild, 01/04/14) Lsimiex-Zzo-Dtf Reductase Inhibitor (Verified Allergy, Mild, 01/04/14) codeine (Verified Allergy, Mild, 01/04/14) opium tincture (Verified Allergy, Mild, 01/04/14) tramadol (Verified Allergy, Mild, 01/04/14) Home Medications Amlodipine Besylate 10 Mg Tablet, 10 MG PO DAILY, (Reported) Atorvastatin Calcium 10 Mg Tablet, 10 MG PO HS, (Reported) Fluticasone Propionate 1 Ea Aero, 2 EA IH BID, (Reported) Hydroxyzine HCl 25 Mg Tablet, 25 MG PO BID, (Reported) Levothyroxine Sodium 125 Mcg Tablet, 125 MCG PO DAILY, (Reported) Metoprolol Succinate 200 Mg Tab.er.24h, 200 MG PO DAILY, (Reported) Montelukast Sodium 10 Mg Tablet, 10 MG PO DAILY, (Reported) Rivaroxaban 20 Mg Tablet, 20 MG PO DAILY, (Reported) Trazodone HCl 50 Mg Tablet, 50 MG PO HS, (Reported) Patient Home Medication List Home Medication List Reviewed: Yes Review of Systems Review of Systems Constitutional: no symptoms reported, see HPI Gastrointestinal: See HPI, Constipated; Denies Rectal Bleeding; Other (Rectal pain) All Other Systems Reviewed Negative Unless Noted: Yes Past Ezfbbts-Aaizks-Qsdvnn Hx Past Med/Social Hx: Reviewed Nursing Past Med/Soc Hx Patient Social History Alcohol Beverage of Choice: Rum Type Used: Cigarettes Former Smoker, Quit: Jun 04, 2000 2nd Hand Smoke Exposure: No Recent Hopitalizations: No Immunizations Up To Date Tetanus Booster (TDap): Unknown Date of Pneumonia Vaccine: Jul 18, 2015 Date of Influenza Vaccine: Jul 18, 2015 Seasonal Allergies Seasonal Allergies: Yes Past Medical History Surgeries: Yes (DENTAL;HEMORRHOIDECTOMY;CARDIAC CATHS-NO INTERVENTION;LOOP RECORDER;CATARAC) Abdominal, Cardiac, Eye Surgery, Hysterectomy, Rectal, Tubal Ligation Respiratory: Yes Asthma, Sleep Apnea Currently Using CPAP: No (PATIENT WEARS 02 AT NIGHT (3L/NC) ) Currently Using BIPAP: No Cardiac: Yes ( CHF;'HOLE IN MY HEART"PER PT;CARDIAC CATHS-NO INTERVENTION; LOOP RECORDER;) Atrial Fibrillation, Coronary Artery Disease, High Cholesterol, Hypertension, I rregular Heartbeat, Peripheral Vascular Neurological: Yes Neuropathy 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 Disorders: No 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 Disorders: Denies 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 Sexually Transmitted Disease: No HIV/AIDS: No Genitourinary: Yes (INCONTINENCE) Bladder Infection, UTI-Chronic Gastrointestinal: Yes Gastroesophageal Reflux, Chronic Constipation, Hemorrhoids, Irritable Bowel Musculoskeletal: Yes (CHRONIC NECK, BACK AND KNEE PAIN) Osteoporosis, Arthritis, Fibromyalgia, Chronic Back Pain Endocrine: Yes (HYPOGLYCEMIA; OBESITY) Hypothyroidsim HEENT: Yes (WEARS GLASSES; CATARACT SURGERY) Cataract Hearing Impairment: Hard of Hearing Cancer: Yes Ovarian Did You Recieve Any Treatments: Yes What Type of Treatment Did You: Surgical Intervention Psychosocial: Yes Anxiety Integumentary: No Blood Disorders: Yes (HX ANEMIA) Adverse Reaction/Blood Tranf: No (N/A) Family Medical History Dementia 19 FATHER Drug abuse G8 BROTHER G8 SISTER FH: pancreatic cancer 19 MOTHER ( OF PANCREATIC CA AGE 67) Thyroid disease 19 MOTHER CARDIAC CATHS--LAST ONE 04/12/19--MINIMAL SMALL VESSEL DISEASE, NO INTERVENTION LOOP RECORDER PLACED 12/10/18 FOR CHRONIC ATRIAL FIBRILLATION CAROTID STENOSIS Physical Exam Vital Signs Vital Signs - First Documented 11/13/20 13:10 Temp 36.9 Pulse 97 Resp 16 B/P (MAP) 131/66 (87) Pulse Ox 97 Capillary Refill : Height/Weight/BMI Height: 5'7.00" Weight: 235lbs. 11.2oz. 106.462962bi; 34.52 BMI Method:Stated General Appearance: WD/WN, no apparent distress Respiratory: chest non-tender, lungs clear, normal breath sounds Cardiovascular: normal peripheral pulses, no edema Gastrointestinal: normal bowel sounds, soft; No distended, No rebound; tenderness (generalized); No mass Rectal: normal rectal tone, hemorrhoids (small internal and external, no blood present. ), tenderness, other (Loose stool present, no impaction. ) Extremities: normal range of motion, non-tender, normal inspection, no pedal edema, normal capillary refill Neurologic/Psychiatric: no motor/sensory deficits, alert, normal mood/affect, oriented x 3 Skin: normal color, warm/dry Progress/Results/Core Measures Results/Orders My Orders Orders - NORMA OWENS Bisacodyl Suppository (Dulcolax Supposit (11/13/20 13:11) Medications Given in ED Current Medications Medications Dose Ordered Sig/Kareem Route Start Time Stop Time Status Last Admin Dose Admin Bisacodyl 10 mg STK-MED ONCE .ROUTE 11/13/20 13:11 11/13/20 13:19 DC 11/13/20 13:21 10 MG Vital Signs/I&O 11/13/20 13:10 Temp 36.9 Pulse 97 Resp 16 B/P (MAP) 131/66 (87) Pulse Ox 97 Progress Progress Note : Time: 13:10 Progress Note Patient seen and evaluated, will give a Ducolax suppository and water. 1345 Spoke to Pharmacist at [facility], they can compound Lidocaine 2% powder into her Diltiazem rectal cream to help with the pain. 1400 small soft BM passed, continues to have positive bowel sounds and minimal GI tenderness. Provided thorough instructions and options in treating the hemorrhoids. Discharge instructions and return precautions reviewed with the patient. All questions answered. Departure Impression Primary Impression: Rectal pain Additional Impressions: Constipated Qualified Codes: K59.09 - Other constipation Hemorrhoids Qualified Codes: K64.0 - First degree hemorrhoids Colon cancer Qualified Codes: C18.7 - Malignant neoplasm of sigmoid colon Disposition: HOME, SELF-CARE Condition: Stable Departure-Patient Inst. Decision time for Depature: 14:00 Referrals: ZEB MONTERO MD (PCP/Family) Primary Care Physician Patient Instructions: Hemorrhoids (DC) Add. Discharge Instructions: Continue to take your stool softener twice daily. Limit the Oxycodone, as this will lead to further constipation. Make sure between the Oxycodeon and Tylenol, that you are not exceeded 4 g/24 hours. Use Miralax, 1 capful daily, until you are having daily stools, then as needed. Use a Fleets Enema for continued constipation. Use the Diltiazem cream that you currently have, Etienne will call you when they have mixed you some new cream with Lidocaine. Use Tucks pads, apply to external rectum and change every 2 hours. Increase water in diet and monitor what you are eating, continue the yogurt daily. Your BMs will depend on what your intake is. Follow up with Dr. Hoffman, if symptoms are not improving or worsen. Return to the Emergency Dept for new, urgent health care needs. All discharge instructions reviewed with patient and/or family. Voiced un derstanding. Copy Copies To 1: MINI HOFFMAN AMY ARNP Nov 13, 2020 13:35
[2020-11-13 14:58] VITALS: BP 152/104
== END 2020-11-13 14:58 | disposition home or self-care (01) ==
LOC: EDUNIT# 13:05 → ER 13:06
DX: C18.7 Malignant neoplasm of sigmoid colon (principal); K64.9 Unspecified hemorrhoids; J45.909 Unspecified asthma, uncomplicated; I48.91 Unspecified atrial fibrillation; I10 Essential (primary) hypertension; F41.9 Anxiety disorder, unspecified; E03.9 Hypothyroidism, unspecified; E78.00 Pure hypercholesterolemia, unspecified; I25.10 Atherosclerotic heart disease of native coronary artery without angina pectoris; Z88.0 Allergy status to penicillin; Z88.5 Allergy status to narcotic agent; Z88.8 Allergy status to other drugs, medicaments and biological substances; Z87.891 Personal history of nicotine dependence; Z79.899 Other long term (current) drug therapy; Z79.01 Long term (current) use of anticoagulants; Z79.890 Hormone replacement therapy
CPT/HCPCS: 99282

== ENCOUNTER → 2020-11-26 | Outpatient (CLI) | payer MEDICARE, MEDICAID ==
[2020-11-26 10:03] LABS: BASOPHILS % (AUTO) 0 % (0-10); EOSINOPHILS % (AUTO) 0 % (0-10); HEMATOCRIT 31 % (35-52); HEMOGLOBIN 9.7 g/dL (11.5-16.0); LYMPHOCYTES # (AUTO) 0.3 10^3/uL (1.0-4.0); LYMPHOCYTES % (AUTO) 5 % (12-44); MEAN CORPUSCULAR HEMOGLOBIN 25 pg (25-34); MEAN CORPUSCULAR HGB CONC 31 g/dL (32-36); MEAN CORPUSCULAR VOLUME 81 fL (80-99); MEAN PLATELET VOLUME 8.9 fL (9.0-12.2); MONOCYTES % (AUTO) 0 % (0-12); NEUTROPHILS # (AUTO) 4.5 10^3/uL (1.8-7.8); NEUTROPHILS % (AUTO) 94 % (42-75); PLATELET COUNT 190 10^3/uL (130-400); WHITE BLOOD COUNT 4.8 10^3/uL (4.3-11.0)
[2020-11-26 10:17] LABS: ALBUMIN 3.8 GM/DL (3.2-4.5)
[2020-11-26 10:18] LABS: POTASSIUM 4.4 MMOL/L (3.6-5.0)
[2020-11-26 10:19] LABS: CALCIUM 9.3 MG/DL (8.5-10.1)
[2020-11-26 10:23] LABS: PHOSPHORUS 3.2 MG/DL (2.3-4.7)
[2020-11-26 10:24] LABS: CREATININE SERUM 1.2 MG/DL (0.60-1.30)
[2020-11-26 10:26] LABS: URIC ACID 6.6 MG/DL (2.6-7.2)
== END ==
LOC: LAB 09:36
PROVIDERS: ATTEND Internal Medicine Nephrology
DX: I12.9 Hypertensive chronic kidney disease with stage 1 through stage 4 chronic kidney disease, or unspecified chronic kidney disease (principal); N18.4 Chronic kidney disease, stage 4 (severe); Z79.1 Long term (current) use of non-steroidal anti-inflammatories (NSAID)
CPT/HCPCS: 36415; 80069; 82306; 82570; 83036; 83970; 84156; 84550; 85025

== ENCOUNTER → 2020-12-24 | Outpatient (CLI) | payer MEDICARE, MEDICAID | LOC: CARD 12:00 | PROVIDERS: ATTEND Internal Medicine Cardiovascular Disease | DX: Z12.11 Encounter for screening for malignant neoplasm of colon (principal); I11.9 Hypertensive heart disease without heart failure | CPT/HCPCS: 93306 ==

== ENCOUNTER 2021-01-07 11:36 | Emergency (ER) | payer MEDICARE, MEDICAID ==
[~2021-01-07] VITALS: Ht 170 cm; Wt 94.5 kg
[2021-01-07] MEDS ORDERED: BISACODYL 10 MG SUPP (DULCOLAX) PR STA (12:43)
[2021-01-07] MEDS ORDERED: LIDOCAINE 2% VISCOUS 15 ML UDC MM ONE (12:45)
--- NOTE | 2021-01-07 12:51 | ED GI ---
General Chief Complaint: Rect Problems Stated Complaint: RECTAL PAIN Nursing Triage Note: AMB TO ROOM REPORTS IS A CANCER PATIENT OVARY CANCER WITH METS TO COLON. IS HAVNG TROUBLE HAVEING BM HAVING RECTAL PAIN X1 WEEK LAST CHEMO WAS LAST WEEK. Sepsis Screen: No Definite Risk History of Present Illness Date Seen by Provider: Jan 07, 2021 Time Seen by Provider: 11:55 Initial Comments 75-year-old female presents for rectal pain Present for approximately 1 week. She has a history of ovarian cancer with metastasis to the rectum, as she has been dealing with this pain intermittently since diagnosis. She was seen here approximately 2 months ago for similar complaints. She reports passing small stools over the last few days but her last full bowel movement was 1 week ago. She is passing flatus. However she has only been drinking water and broth for the last 2 days. Her last solid food was 3 to 4 days ago. She is only drinking 16 ounces of water per 24 hours. She also reports minimal urine output. She has tried qzik-nhp-pihhlkw stool softeners and suppositories with no improvement. Timing/Duration: 1 Week Severity/Quality: Moderate Location: Other (Rectal) Radiation: No Radiation Associated Symptoms: Weakness Allergies and Home Medications Allergies Coded Allergies: Penicillins (Verified Allergy, Mild, 01/04/14) Hyyzkcm-Pqd-Gok Reductase Inhibitor (Verified Allergy, Mild, 01/04/14) codeine (Verified Allergy, Mild, 01/04/14) opium tincture (Verified Allergy, Mild, 01/04/14) tramadol (Verified Allergy, Mild, 01/04/14) Home Medications Amlodipine Besylate 10 Mg Tablet, 10 MG PO DAILY, (Reported) Atorvastatin Calcium 10 Mg Tablet, 10 MG PO HS, (Reported) Bisacodyl 10 Mg Supp.rect, 10 MG RC Q12H PRN for CONSTIPATION-2ND LINE Prescribed by: NORMA OWENS on 01/07/21 1256 Fluticasone Propionate 1 Ea Aero, 2 EA IH BID, (Reported) Hydroxyzine HCl 25 Mg Tablet, 25 MG PO BID, (Reported) Levothyroxine Sodium 125 Mcg Tablet, 125 MCG PO DAILY, (Reported) Lidocaine 15 Gm Cream..g., 1 TSP TP Q4H PRN for PAIN-MILD (1-4) Apply 1/2 to 1 tspn to rectum every 4 hours, as needed for pain Prescribed by: NORMA OWENS on 01/07/21 1256 Metoprolol Succinate 200 Mg Tab.er.24h, 200 MG PO DAILY, (Reported) Montelukast Sodium 10 Mg Tablet, 10 MG PO DAILY, (Reported) Rivaroxaban 20 Mg Tablet, 20 MG PO DAILY, (Reported) Trazodone HCl 50 Mg Tablet, 50 MG PO HS, (Reported) Patient Home Medication List Home Medication List Reviewed: Yes Review of Systems Review of Systems Constitutional: no symptoms reported, see HPI Gastrointestinal: See HPI, Poor Appetite, Poor Fluid Intake, Other (Rectal pain) Genitourinary: See HPI; Denies Hematuria; Pain All Other Systems Reviewed Negative Unless Noted: Yes Past Odnwmjr-Ltwwma-Ghnzlc Hx Past Med/Social Hx: Reviewed Nursing Past Med/Soc Hx Patient Social History Alcohol Use: Occasionally Uses Number of Drinks Today: DD Alcohol Beverage of Choice: Rum Type Used: Cigarettes Former Smoker, Quit: Jun 04, 2000 2nd Hand Smoke Exposure: No Recent Infectious Disease Expo: No Recent Hopitalizations: No Immunizations Up To Date Tetanus Booster (TDap): Unknown Date of Pneumonia Vaccine: Jul 18, 2015 Date of Influenza Vaccine: Jul 18, 2015 Seasonal Allergies Seasonal Allergies: Yes Past Medical History Surgeries: Yes (DENTAL;HEMORRHOIDECTOMY;CARDIAC CATHS-NO INTERVENTION;LOOP RECORDER;CATARAC) Abdominal, Cardiac, Eye Surgery, Hysterectomy, Rectal, Tubal Ligation Respiratory: Yes Asthma, Sleep Apnea Currently Using CPAP: No (PATIENT WEARS 02 AT NIGHT (3L/NC) ) Currently Using BIPAP: No Cardiac: Yes ( CHF;'HOLE IN MY HEART"PER PT;CARDIAC CATHS-NO INTERVENTION; LOOP RECORDER;) Atrial Fibrillation, Coronary Artery Disease, High Cholesterol, Hypertension, Irregular Heartbeat, Peripheral Vascular Neurological: Yes Neuropathy 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 Disorders: No 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 Disorders: Denies RECOVERER History: Hysterectomy Sexually Transmitted Disease: No HIV/AIDS: No Genitourinary: Yes (INCONTINENCE) Bladder Infection, UTI-Chronic Gastrointestinal: Yes Gastroesophageal Reflux, Chronic Constipation, Hemorrhoids, Irritable Bowel Musculoskeletal: Yes (CHRONIC NECK, BACK AND KNEE PAIN) Osteoporosis, Arthritis, Fibromyalgia, Chronic Back Pain Endocrine: Yes (HYPOGLYCEMIA; OBESITY) Hypothyroidsim HEENT: Yes (WEARS GLASSES; CATARACT SURGERY) Cataract Hearing Impairment: Hard of Hearing Cancer: Yes Ovarian Did You Recieve Any Treatments: Yes What Type of Treatment Did You: Surgical Intervention Psychosocial: Yes Anxiety Integumentary: No Blood Disorders: Yes (HX ANEMIA) Adverse Reaction/Blood Tranf: No (N/A) Family Medical History Dementia 19 FATHER Drug abuse G8 BROTHER G8 SISTER FH: pancreatic cancer 19 MOTHER ( OF PANCREATIC CA AGE 67) Thyroid disease 19 MOTHER CARDIAC CATHS--LAST ONE 04/12/19--MINIMAL SMALL VESSEL DISEASE, NO INTERVENTION LOOP RECORDER PLACED 12/10/18 FOR CHRONIC ATRIAL FIBRILLATION CAROTID STENOSIS Physical Exam Vital Signs Vital Signs - First Documented 01/07/21 11:45 Temp 36.9 Pulse 94 Resp 18 B/P (MAP) 130/72 (91) Pulse Ox 98 O2 Delivery Room Air Capillary Refill : Less Than 3 Seconds Height/Weight/BMI Height: 5'7.00" Weight: 235lbs. 11.2oz. [id number]; 32.00 BMI Method:Stated General Appearance: WD/WN, no apparent distress HEENT: PERRL/EOMI, normal ENT inspection, TMs normal, pharynx normal Respiratory: chest non-tender, lungs clear, normal breath sounds Cardiovascular: normal peripheral pulses, regular rate, rhythm, no murmur Gastrointestinal: normal bowel sounds, non tender, soft; No distended, No rebound, No tenderness Extremities: normal range of motion, non-tender, normal inspection, no pedal edema Back: normal inspection, no CVA tenderness Neurologic/Psychiatric: alert, normal mood/affect, oriented x 3 Skin: normal color, warm/dry Progress/Results/Core Measures Results/Orders Lab Results Laboratory Tests Test 01/07/21 12:50 Range/Units Urine Color YELLOW Urine Clarity CLOUDY Urine pH 7.5 5-9 Urine Specific [place] 1.020 1.016-1.022 Urine Protein NEGATIVE NEGATIVE Urine Glucose (UA) NEGATIVE NEGATIVE Urine Ketones NEGATIVE NEGATIVE Urine Nitrite NEGATIVE NEGATIVE Urine Bilirubin NEGATIVE NEGATIVE Urine Urobilinogen 0.2 < = 1.0 MG/DL Urine Leukocyte Esterase 3+ H NEGATIVE Urine RBC (Auto) NEGATIVE NEGATIVE Urine RBC 0-2 /HPF Urine WBC >100 H /HPF Urine Squamous Epithelial Cells 0-2 /HPF Urine Crystals NONE /LPF Urine Bacteria LARGE H /HPF Urine Casts NONE /LPF Urine Mucus NEGATIVE /LPF Urine Culture Indicated YES My Orders Orders - ROMAN,NORMA [employer] BUILDUP ASSISTANT Ua Culture If Indicated (01/07/21 12:43) Bisacodyl Suppository (Dulcolax Supposit (01/07/21 12:43) Lidocaine 2% Viscous 15 Ml (Xylocaine Vi (01/07/21 12:45) Urine Culture (01/07/21 12:50) Medications Given in ED Current Medications Medications Dose Ordered Sig/Kareem Route Start Time Stop Time Status Last Admin Dose Admin Lidocaine HCl 5 ml ONCE ONCE MM 01/07/21 12:45 01/07/21 12:46 DC 01/07/21 12:55 5 ML Vital Signs/I&O 01/07/21 11:45 Temp 36.9 Pulse 94 Resp 18 B/P (MAP) 130/72 (91) Pulse Ox 98 O2 Delivery Room Air Blood Pressure Mean: 91 Progress Progress Note : Time: 11:55 Progress Note Patient seen and evaluated, will try suppository for constipation with viscous lidocaine for pain. Will obtain UA to assess for a urinary tract infection. 1230 approximately 5 to 10 minutes after the suppository was inserted the patient reports passing flatus and the suppository was expelled along with a small formed stool. Patient does report pain in the rectal area with less since the lidocaine has been present. 1315 UA shows urinary tract infection, discussed with patient will start antibiotic. She has a follow-up appointment with Dr. Hoffman tomorrow. Discharge instructions and return precautions reviewed with her and her in detail. Stressed the importance of increasing water and high-fiber foods into her diet. Departure Impression Primary Impression: Rectal pain Additional Impressions: Rectal cancer Constipation Qualified Codes: K59.09 - Other constipation UTI (urinary tract infection) Qualified Codes: N30.00 - Acute cystitis without hematuria Disposition: 01 HOME, SELF-CARE Condition: Improved Departure-Patient Inst. Decision time for Depature: 13:15 Referrals: ZEB MONTERO MD (PCP/Family) Primary Care Physician Patient Instructions: Colon and Rectal Cancer (DC), Constipation, Adult (DC), High Fiber Diet, Urinary Tract Infection, Adult (DC) Add. Discharge Instructions: Take MiraLAX 1 capful in a bottle of water twice daily until having stools, and then continue to take 1 capful daily in a bottle of water. If MiraLax is not working, you may take Milk of Magnesia every 8 hours. You must drink 16 ounces of water every 2-3 hours while awake. Use the lidocaine cream for rectal pain, you may also apply a Tucks pad to the area. Use the Suppository Rx every 12 hours, until you are having stools regularly. If you are not eating solid food, you will not have a daily BM. Eat prunes or drink prune juice daily, you may also supplement with grapes or applesauce. Call your primary care doctor and oncologist if symptoms are not improving or worsen. Take antibiotics as prescribed. You have an appt with Dr. Hoffman on 01/08/21 at 1:00 All discharge instructions reviewed with patient and/or family. Voiced understanding. Scripts Ciprofloxacin HCl (Ciprofloxacin HCl) 500 Mg Tablet 500 MG PO BID, #6 TAB 0 Refills Prov: NORMA OWENS 01/07/21 Bisacodyl (Bisacodyl) 10 Mg Supp.rect 10 MG RC Q12H PRN for CONSTIPATION-2ND LINE, #20 SUPP.RECT 0 Refills Prov: NORMA OWENS 01/07/21 Lidocaine (Recticare) 15 Gm Cream..g. 1 TSP TP Q4H PRN for PAIN-MILD (1-4), #1 TUBE 3 Refills Apply 1/2 to 1 tspn to rectum every 4 hours, as needed for pain Prov: NORMA OWENS 01/07/21 Copy Copies To 1: MINI HOFFMAN DO; ZEB MONTERO MD; MARY BARKER MD, AMY ARNP Jan 07, 2021 12:51
[2021-01-07] MEDS ORDERED: LIDO15CR6 TP (12:56)
[2021-01-07] MEDS ORDERED: BISA10SU8 RC (12:56)
[2021-01-07 12:59] LABS: BILIRUBIN,URINE NEGATIVE (NEGATIVE); CLARITY,URINE CLOUDY; COLOR,URINE YELLOW; GLUCOSE, URINE (UA) NEGATIVE (NEGATIVE); KETONES,URINE NEGATIVE (NEGATIVE); LEUKOCYTE ESTERASE ,URINE 3+ (NEGATIVE); NITRITE,URINE NEGATIVE (NEGATIVE); PH,URINE 7.5 (5-9); PROTEIN,URINE NEGATIVE (NEGATIVE)
[2021-01-07 13:11] LABS: BACTERIA,URINE LARGE /HPF; RBC,URINE 0-2 /HPF; SQUAMOUS EPITHELIAL CELL,UR 0-2 /HPF; WBC,URINE >100 /HPF
[2021-01-07] MEDS ORDERED: MILK OF MAGNESIA 400 MG/5 ML 30 ML UDC PO STA (13:31)
[2021-01-07] MEDS ORDERED: CIPR500T5 PO (13:33)
[2021-01-07 13:52] VITALS: BP 138/80
== END 2021-01-07 13:53 | disposition home or self-care (01) ==
LOC: EDUNIT# 11:36 → ER 11:37
DX: C56.9 Malignant neoplasm of unspecified ovary (principal); C78.5 Secondary malignant neoplasm of large intestine and rectum; C20 Malignant neoplasm of rectum; K59.09 Other constipation; N39.0 Urinary tract infection, site not specified; I11.0 Hypertensive heart disease with heart failure; I50.9 Heart failure, unspecified; I25.10 Atherosclerotic heart disease of native coronary artery without angina pectoris; I48.91 Unspecified atrial fibrillation; E78.00 Pure hypercholesterolemia, unspecified; E03.9 Hypothyroidism, unspecified; F41.9 Anxiety disorder, unspecified; J45.909 Unspecified asthma, uncomplicated; Z80.41 Family history of malignant neoplasm of ovary; Z87.891 Personal history of nicotine dependence; Z79.899 Other long term (current) drug therapy; Z79.51 Long term (current) use of inhaled steroids; Z79.890 Hormone replacement therapy; Z79.01 Long term (current) use of anticoagulants
CPT/HCPCS: 81000; 87077; 87088; 99284

== ENCOUNTER 2021-01-22 13:19 | Outpatient (RCR) | payer MEDICARE, MEDICAID ==
[2020-10-29 11:23] LABS: BASOPHILS % (AUTO) 0 % (0-10); EOSINOPHILS % (AUTO) 0 % (0-10); HEMATOCRIT 30 % (35-52); HEMOGLOBIN 9.3 g/dL (11.5-16.0); LYMPHOCYTES # (AUTO) 0.3 10^3/uL (1.0-4.0); LYMPHOCYTES % (AUTO) 4 % (12-44); MEAN CORPUSCULAR HEMOGLOBIN 26 pg (25-34); MEAN CORPUSCULAR HGB CONC 31 g/dL (32-36); MEAN CORPUSCULAR VOLUME 83 fL (80-99); MEAN PLATELET VOLUME 9.1 fL (9.0-12.2); MONOCYTES # (AUTO) 0.1 10^3/uL (0.0-1.0); MONOCYTES % (AUTO) 1 % (0-12); NEUTROPHILS # (AUTO) 5.3 10^3/uL (1.8-7.8); NEUTROPHILS % (AUTO) 94 % (42-75); PLATELET COUNT 281 10^3/uL (130-400); WHITE BLOOD COUNT 5.6 10^3/uL (4.3-11.0)
[2020-10-29 11:44] LABS: ALBUMIN 4.2 GM/DL (3.2-4.5); BILIRUBIN,TOTAL 0.6 MG/DL (0.1-1.0); CALCIUM 9.4 MG/DL (8.5-10.1); CREATININE SERUM 1.26 MG/DL (0.60-1.30); TOTAL PROTEIN 6.9 GM/DL (6.4-8.2)
[2020-11-06 08:10] LABS: BASOPHILS % (AUTO) 1 % (0-10); EOSINOPHILS # (AUTO) 0.1 10^3/uL (0.0-0.3); EOSINOPHILS % (AUTO) 6 % (0-10); HEMATOCRIT 28 % (35-52); HEMOGLOBIN 8.5 g/dL (11.5-16.0); LYMPHOCYTES # (AUTO) 0.7 10^3/uL (1.0-4.0); LYMPHOCYTES % (AUTO) 66 % (12-44); MEAN CORPUSCULAR HEMOGLOBIN 25 pg (25-34); MEAN CORPUSCULAR HGB CONC 30 g/dL (32-36); MEAN CORPUSCULAR VOLUME 83 fL (80-99); MEAN PLATELET VOLUME 9.5 fL (9.0-12.2); MONOCYTES # (AUTO) 0.1 10^3/uL (0.0-1.0); MONOCYTES % (AUTO) 6 % (0-12); NEUTROPHILS # (AUTO) 0.2 10^3/uL (1.8-7.8); NEUTROPHILS % (AUTO) 20 % (42-75); PLATELET COUNT 148 10^3/uL (130-400)
[2020-11-06 08:13] LABS: WHITE BLOOD COUNT 1.1 10^3/uL (4.3-11.0)
[2020-11-06 08:28] LABS: CALCIUM 8.5 MG/DL (8.5-10.1); CREATININE SERUM 1.11 MG/DL (0.60-1.30); POTASSIUM 3.8 MMOL/L (3.6-5.0)
[2020-11-12 08:41] LABS: BASOPHILS % (AUTO) 2 % (0-10); EOSINOPHILS % (AUTO) 4 % (0-10); HEMATOCRIT 26 % (35-52); LYMPHOCYTES # (AUTO) 0.6 10^3/uL (1.0-4.0); LYMPHOCYTES % (AUTO) 60 % (12-44); MEAN CORPUSCULAR HEMOGLOBIN 26 pg (25-34); MEAN CORPUSCULAR HGB CONC 30 g/dL (32-36); MEAN CORPUSCULAR VOLUME 84 fL (80-99); MEAN PLATELET VOLUME 8.7 fL (9.0-12.2); MONOCYTES # (AUTO) 0.2 10^3/uL (0.0-1.0); MONOCYTES % (AUTO) 26 % (0-12); NEUTROPHILS # (AUTO) 0.1 10^3/uL (1.8-7.8); NEUTROPHILS % (AUTO) 6 % (42-75); PLATELET COUNT 159 10^3/uL (130-400)
[2020-11-12 08:44] LABS: WHITE BLOOD COUNT 0.9 10^3/uL (4.3-11.0)
[2020-11-12 09:04] LABS: CALCIUM 8.9 MG/DL (8.5-10.1); CREATININE SERUM 1.62 MG/DL (0.60-1.30); POTASSIUM 4.6 MMOL/L (3.6-5.0)
[2020-11-19 10:55] LABS: BASOPHILS % (AUTO) 1 % (0-10); EOSINOPHILS % (AUTO) 2 % (0-10); HEMATOCRIT 27 % (35-52); HEMOGLOBIN 8.4 g/dL (11.5-16.0); LYMPHOCYTES # (AUTO) 0.5 10^3/uL (1.0-4.0); LYMPHOCYTES % (AUTO) 31 % (12-44); MEAN CORPUSCULAR HEMOGLOBIN 25 pg (25-34); MEAN CORPUSCULAR HGB CONC 31 g/dL (32-36); MEAN CORPUSCULAR VOLUME 83 fL (80-99); MEAN PLATELET VOLUME 8.2 fL (9.0-12.2); MONOCYTES # (AUTO) 0.2 10^3/uL (0.0-1.0); MONOCYTES % (AUTO) 13 % (0-12); NEUTROPHILS # (AUTO) 0.9 10^3/uL (1.8-7.8); NEUTROPHILS % (AUTO) 53 % (42-75); PLATELET COUNT 197 10^3/uL (130-400); WHITE BLOOD COUNT 1.7 10^3/uL (4.3-11.0)
[2020-11-19 11:25] LABS: ALBUMIN 3.4 GM/DL (3.2-4.5); BILIRUBIN,TOTAL 0.3 MG/DL (0.1-1.0); CALCIUM 8.7 MG/DL (8.5-10.1); CREATININE SERUM 1.49 MG/DL (0.60-1.30); POTASSIUM 4.1 MMOL/L (3.6-5.0); TOTAL PROTEIN 5.5 GM/DL (6.4-8.2)
[2020-11-26 11:35] LABS: ALBUMIN 3.8 GM/DL (3.2-4.5); BILIRUBIN,TOTAL 0.5 MG/DL (0.1-1.0); CALCIUM 9.2 MG/DL (8.5-10.1); CREATININE SERUM 1.24 MG/DL (0.60-1.30); POTASSIUM 4.5 MMOL/L (3.6-5.0); TOTAL PROTEIN 6.2 GM/DL (6.4-8.2)
[2020-12-03 12:48] LABS: BASOPHILS % (AUTO) 0 % (0-10); EOSINOPHILS # (AUTO) 0.1 10^3/uL (0.0-0.3); EOSINOPHILS % (AUTO) 8 % (0-10); HEMATOCRIT 27 % (35-52); HEMOGLOBIN 8.2 g/dL (11.5-16.0); LYMPHOCYTES # (AUTO) 0.5 10^3/uL (1.0-4.0); LYMPHOCYTES % (AUTO) 28 % (12-44); MEAN CORPUSCULAR HEMOGLOBIN 25 pg (25-34); MEAN CORPUSCULAR HGB CONC 30 g/dL (32-36); MEAN CORPUSCULAR VOLUME 83 fL (80-99); MEAN PLATELET VOLUME 9.1 fL (9.0-12.2); MONOCYTES % (AUTO) 3 % (0-12); NEUTROPHILS % (AUTO) 61 % (42-75); PLATELET COUNT 147 10^3/uL (130-400); WHITE BLOOD COUNT 1.6 10^3/uL (4.3-11.0)
[2020-12-03 13:06] LABS: CALCIUM 8.7 MG/DL (8.5-10.1); CREATININE SERUM 1.01 MG/DL (0.60-1.30)
[2020-12-10 11:36] LABS: BASOPHILS % (AUTO) 0 % (0-10); EOSINOPHILS # (AUTO) 0.1 10^3/uL (0.0-0.3); EOSINOPHILS % (AUTO) 9 % (0-10); HEMATOCRIT 27 % (35-52); HEMOGLOBIN 8.2 g/dL (11.5-16.0); LYMPHOCYTES # (AUTO) 0.5 10^3/uL (1.0-4.0); LYMPHOCYTES % (AUTO) 62 % (12-44); MEAN CORPUSCULAR HEMOGLOBIN 25 pg (25-34); MEAN CORPUSCULAR HGB CONC 30 g/dL (32-36); MEAN CORPUSCULAR VOLUME 81 fL (80-99); MEAN PLATELET VOLUME 8.6 fL (9.0-12.2); MONOCYTES # (AUTO) 0.2 10^3/uL (0.0-1.0); MONOCYTES % (AUTO) 21 % (0-12); NEUTROPHILS # (AUTO) 0.1 10^3/uL (1.8-7.8); NEUTROPHILS % (AUTO) 8 % (42-75); PLATELET COUNT 151 10^3/uL (130-400)
[2020-12-10 11:39] LABS: WHITE BLOOD COUNT 0.9 10^3/uL (4.3-11.0)
[2020-12-10 12:00] LABS: CALCIUM 8.8 MG/DL (8.5-10.1); POTASSIUM 3.9 MMOL/L (3.6-5.0)
[2020-12-17 11:10] LABS: BASOPHILS % (AUTO) 1 % (0-10); EOSINOPHILS % (AUTO) 0 % (0-10); HEMATOCRIT 32 % (35-52); HEMOGLOBIN 9.8 g/dL (11.5-16.0); LYMPHOCYTES # (AUTO) 0.3 10^3/uL (1.0-4.0); LYMPHOCYTES % (AUTO) 12 % (12-44); MEAN CORPUSCULAR HEMOGLOBIN 25 pg (25-34); MEAN CORPUSCULAR HGB CONC 31 g/dL (32-36); MEAN CORPUSCULAR VOLUME 80 fL (80-99); MEAN PLATELET VOLUME 8.7 fL (9.0-12.2); MONOCYTES % (AUTO) 1 % (0-12); NEUTROPHILS # (AUTO) 1.8 10^3/uL (1.8-7.8); NEUTROPHILS % (AUTO) 86 % (42-75); PLATELET COUNT 184 10^3/uL (130-400); WHITE BLOOD COUNT 2.1 10^3/uL (4.3-11.0)
[2020-12-17 11:43] LABS: BILIRUBIN,TOTAL 0.6 MG/DL (0.1-1.0); CALCIUM 10.1 MG/DL (8.5-10.1); CREATININE SERUM 1.39 MG/DL (0.60-1.30); POTASSIUM 3.9 MMOL/L (3.6-5.0); TOTAL PROTEIN 6.6 GM/DL (6.4-8.2)
[2020-12-31 14:07] LABS: BASOPHILS % (AUTO) 0 % (0-10); EOSINOPHILS # (AUTO) 0.1 10^3/uL (0.0-0.3); EOSINOPHILS % (AUTO) 3 % (0-10); HEMATOCRIT 29 % (35-52); HEMOGLOBIN 8.6 g/dL (11.5-16.0); LYMPHOCYTES # (AUTO) 0.7 10^3/uL (1.0-4.0); LYMPHOCYTES % (AUTO) 20 % (12-44); MEAN CORPUSCULAR HEMOGLOBIN 25 pg (25-34); MEAN CORPUSCULAR HGB CONC 30 g/dL (32-36); MEAN CORPUSCULAR VOLUME 82 fL (80-99); MEAN PLATELET VOLUME 8.8 fL (9.0-12.2); MONOCYTES # (AUTO) 0.3 10^3/uL (0.0-1.0); MONOCYTES % (AUTO) 8 % (0-12); NEUTROPHILS # (AUTO) 2.2 10^3/uL (1.8-7.8); NEUTROPHILS % (AUTO) 68 % (42-75); PLATELET COUNT 198 10^3/uL (130-400); WHITE BLOOD COUNT 3.2 10^3/uL (4.3-11.0)
[2020-12-31 14:25] LABS: ALBUMIN 3.7 GM/DL (3.2-4.5); BILIRUBIN,TOTAL 0.5 MG/DL (0.1-1.0); CALCIUM 8.9 MG/DL (8.5-10.1); CREATININE SERUM 1.09 MG/DL (0.60-1.30); POTASSIUM 4.1 MMOL/L (3.6-5.0)
[2021-01-08 12:38] LABS: BASOPHILS % (AUTO) 0 % (0-10); EOSINOPHILS # (AUTO) 0.1 10^3/uL (0.0-0.3); EOSINOPHILS % (AUTO) 4 % (0-10); HEMATOCRIT 29 % (35-52); HEMOGLOBIN 8.5 g/dL (11.5-16.0); LYMPHOCYTES # (AUTO) 0.6 10^3/uL (1.0-4.0); LYMPHOCYTES % (AUTO) 15 % (12-44); MEAN CORPUSCULAR HEMOGLOBIN 25 pg (25-34); MEAN CORPUSCULAR HGB CONC 30 g/dL (32-36); MEAN CORPUSCULAR VOLUME 82 fL (80-99); MONOCYTES # (AUTO) 0.5 10^3/uL (0.0-1.0); MONOCYTES % (AUTO) 12 % (0-12); NEUTROPHILS # (AUTO) 2.6 10^3/uL (1.8-7.8); NEUTROPHILS % (AUTO) 69 % (42-75); PLATELET COUNT 166 10^3/uL (130-400); WHITE BLOOD COUNT 3.7 10^3/uL (4.3-11.0)
[2021-01-08 12:52] LABS: CALCIUM 9.1 MG/DL (8.5-10.1); CREATININE SERUM 1.09 MG/DL (0.60-1.30); POTASSIUM 4.1 MMOL/L (3.6-5.0)
[2021-01-14 12:53] LABS: BASOPHILS % (AUTO) 1 % (0-10); EOSINOPHILS # (AUTO) 0.1 10^3/uL (0.0-0.3); EOSINOPHILS % (AUTO) 5 % (0-10); HEMATOCRIT 26 % (35-52); HEMOGLOBIN 8.2 g/dL (11.5-16.0); LYMPHOCYTES # (AUTO) 0.5 10^3/uL (1.0-4.0); LYMPHOCYTES % (AUTO) 23 % (12-44); MEAN CORPUSCULAR HEMOGLOBIN 26 pg (25-34); MEAN CORPUSCULAR HGB CONC 31 g/dL (32-36); MEAN CORPUSCULAR VOLUME 84 fL (80-99); MEAN PLATELET VOLUME 8.4 fL (9.0-12.2); MONOCYTES # (AUTO) 0.2 10^3/uL (0.0-1.0); MONOCYTES % (AUTO) 10 % (0-12); NEUTROPHILS # (AUTO) 1.3 10^3/uL (1.8-7.8); NEUTROPHILS % (AUTO) 61 % (42-75); PLATELET COUNT 160 10^3/uL (130-400); WHITE BLOOD COUNT 2.2 10^3/uL (4.3-11.0)
[2021-01-14 13:13] LABS: CALCIUM 8.9 MG/DL (8.5-10.1); CREATININE SERUM 1.04 MG/DL (0.60-1.30)
[~2021-01-22 13:19] MED LIST changes: +BISA10SU8 RC; +CIPR500T5 PO; +FAMOTIDINE 20MG/2ML IV (CANCER CTR) IV SCH; +FOSAPREPITANT (CANCER CENTER) 150 MG in NS (IVPB) CANCER CENTER ONLY 150 ML IV SCH; +LIDO15CR6 TP; +LORazepam 0.5 MG (ATIVAN) TABLET CANCER CTR ONE; +LORazepam 0.5 MG (ATIVAN) TABLET CANCER CTR PO PRN; +LORazepam INJ 2 MG/ML VIAL CANCER CTR IV SCH; +NS IV 1000 ML (CANCER CTR) IV SCH; -SULF1TAB35 PO; +SULF1TAB38 PO; +diphenhydrAMINE 25 MG TAB (BENADRYL) CANCER CENTER PO SCH; +diphenhydrAMINE 50 MG/ML INJ (CANCER CENTER) IV PRN
[2021-01-22 13:46] LABS: BASOPHILS % (AUTO) 1 % (0-10); EOSINOPHILS % (AUTO) 2 % (0-10); HEMATOCRIT 29 % (35-52); HEMOGLOBIN 8.5 g/dL (11.5-16.0); LYMPHOCYTES # (AUTO) 0.4 10^3/uL (1.0-4.0); LYMPHOCYTES % (AUTO) 26 % (12-44); MEAN CORPUSCULAR HEMOGLOBIN 24 pg (25-34); MEAN CORPUSCULAR HGB CONC 30 g/dL (32-36); MEAN CORPUSCULAR VOLUME 82 fL (80-99); MEAN PLATELET VOLUME 8.8 fL (9.0-12.2); MONOCYTES # (AUTO) 0.2 10^3/uL (0.0-1.0); MONOCYTES % (AUTO) 12 % (0-12); NEUTROPHILS % (AUTO) 59 % (42-75); WHITE BLOOD COUNT 1.7 10^3/uL (4.3-11.0)
[2021-01-22 13:54] LABS: PLATELET COUNT 140 10^3/uL (130-400)
[2021-01-22 14:38] LABS: ALANINE AMINOTRANSFERASE 16 U/L (0-55); ALBUMIN 3.8 GM/DL (3.2-4.5); ALKALINE PHOSPHATASE 60 U/L (40-136); BILIRUBIN,TOTAL 0.7 MG/DL (0.1-1.0); BUN/CREATININE RATIO 11; CALCIUM 9.1 MG/DL (8.5-10.1); CARBON DIOXIDE 25 MMOL/L (21-32); CHLORIDE 109 MMOL/L (98-107); GFR ESTIMATED > 60; GLUCOSE 91 MG/DL (70-105); POTASSIUM 3.6 MMOL/L (3.6-5.0); SODIUM 142 MMOL/L (135-145); TOTAL PROTEIN 5.9 GM/DL (6.4-8.2)
== END 2021-01-26 | disposition home or self-care (01) ==
LOC: ONC 13:19
PROVIDERS: ATTEND Internal Medicine Hematology & Oncology
DX: C56.9 Malignant neoplasm of unspecified ovary (principal); C48.2 Malignant neoplasm of peritoneum, unspecified; D72.819 Decreased white blood cell count, unspecified; I25.10 Atherosclerotic heart disease of native coronary artery without angina pectoris; I48.91 Unspecified atrial fibrillation; J44.9 Chronic obstructive pulmonary disease, unspecified; N39.0 Urinary tract infection, site not specified; D64.9 Anemia, unspecified; I10 Essential (primary) hypertension; E03.9 Hypothyroidism, unspecified; E78.2 Mixed hyperlipidemia; Z87.891 Personal history of nicotine dependence
CPT/HCPCS: 36591; 80048; 80053; 85025; 86304; 96367; 96375; 96413; 96415; 96417; 99213

== ENCOUNTER 2021-03-06 14:14 | Outpatient (RCR) | payer MEDICARE, MEDICAID ==
[2021-02-19 13:26] LABS: BASOPHILS % (AUTO) 1 % (0-10); EOSINOPHILS # (AUTO) 0.1 10^3/uL (0.0-0.3); EOSINOPHILS % (AUTO) 5 % (0-10); HEMATOCRIT 29 % (35-52); HEMOGLOBIN 9.1 g/dL (11.5-16.0); LYMPHOCYTES # (AUTO) 0.7 10^3/uL (1.0-4.0); LYMPHOCYTES % (AUTO) 39 % (12-44); MEAN CORPUSCULAR HEMOGLOBIN 26 pg (25-34); MEAN CORPUSCULAR HGB CONC 31 g/dL (32-36); MEAN CORPUSCULAR VOLUME 82 fL (80-99); MEAN PLATELET VOLUME 8.7 fL (9.0-12.2); MONOCYTES # (AUTO) 0.3 10^3/uL (0.0-1.0); MONOCYTES % (AUTO) 15 % (0-12); NEUTROPHILS # (AUTO) 0.7 10^3/uL (1.8-7.8); NEUTROPHILS % (AUTO) 41 % (42-75); PLATELET COUNT 146 10^3/uL (130-400); WHITE BLOOD COUNT 1.7 10^3/uL (4.3-11.0)
[2021-02-19 13:45] LABS: ALBUMIN 3.5 GM/DL (3.2-4.5); BILIRUBIN,TOTAL 0.5 MG/DL (0.1-1.0); CALCIUM 8.8 MG/DL (8.5-10.1); CREATININE SERUM 1.42 MG/DL (0.60-1.30)
[~2021-03-06 14:14] MED LIST changes: -FAMOTIDINE 20MG/2ML IV (CANCER CTR) IV SCH; -FOSAPREPITANT (CANCER CENTER) 150 MG in NS (IVPB) CANCER CENTER ONLY 150 ML IV SCH; -LORazepam 0.5 MG (ATIVAN) TABLET CANCER CTR ONE; -LORazepam 0.5 MG (ATIVAN) TABLET CANCER CTR PO PRN; -LORazepam INJ 2 MG/ML VIAL CANCER CTR IV SCH; -NS IV 1000 ML (CANCER CTR) IV SCH; -diphenhydrAMINE 25 MG TAB (BENADRYL) CANCER CENTER PO SCH; -diphenhydrAMINE 50 MG/ML INJ (CANCER CENTER) IV PRN
== END 2021-05-20 | disposition home or self-care (01) ==
LOC: ONC 14:14
PROVIDERS: ATTEND Internal Medicine Hematology & Oncology
DX: C56.9 Malignant neoplasm of unspecified ovary (principal); C48.2 Malignant neoplasm of peritoneum, unspecified; D72.819 Decreased white blood cell count, unspecified; I25.10 Atherosclerotic heart disease of native coronary artery without angina pectoris; I48.91 Unspecified atrial fibrillation; J44.9 Chronic obstructive pulmonary disease, unspecified; N39.0 Urinary tract infection, site not specified; D64.9 Anemia, unspecified; I10 Essential (primary) hypertension; E03.9 Hypothyroidism, unspecified; E78.2 Mixed hyperlipidemia; Z87.891 Personal history of nicotine dependence
CPT/HCPCS: 80053; 85025; 86304; G0463; 36591; 99213

== ENCOUNTER 2021-05-30 08:51 | Outpatient (RCR) | payer MEDICAID, MEDICARE ==
[~2021-05-30 08:51] MED LIST changes: -LISI-729 PO; +LISI5TAB20 PO; +MONT-40 PO; -MONT10TA32 PO; +TIZA-186 PO; -TIZA4TAB4 PO
== END 2021-07-18 | disposition home or self-care (01) ==
LOC: ONC 08:51
PROVIDERS: ATTEND Internal Medicine Hematology & Oncology
DX: Z45.2 Encounter for adjustment and management of vascular access device (principal); C56.9 Malignant neoplasm of unspecified ovary; D72.819 Decreased white blood cell count, unspecified; I25.10 Atherosclerotic heart disease of native coronary artery without angina pectoris; I48.91 Unspecified atrial fibrillation; J44.9 Chronic obstructive pulmonary disease, unspecified; N39.0 Urinary tract infection, site not specified; I10 Essential (primary) hypertension; E03.9 Hypothyroidism, unspecified; E78.2 Mixed hyperlipidemia; E66.9 Obesity, unspecified; Z87.891 Personal history of nicotine dependence; Z68.36 Body mass index [BMI] 36.0-36.9, adult
CPT/HCPCS: 96523

== ENCOUNTER → 2021-06-27 | Outpatient (CLI) | payer MEDICARE | LOC: CARD 15:00 | PROVIDERS: ATTEND Internal Medicine Cardiovascular Disease | DX: I35.1 Nonrheumatic aortic (valve) insufficiency (principal); I11.9 Hypertensive heart disease without heart failure | CPT/HCPCS: 93306 ==

== ENCOUNTER → 2021-09-02 | Outpatient (CLI) | payer MEDICARE ==
[~2021-09-02] MED LIST changes: +BARIUM SUSPENSION 2.1% (VANILLA SILQ) 450 ML PO ONE; +HOLD METFORMIN - RECEIVED CONTRAST 20 ML VIAL IV SCH; +IOHEXOL 350 MG/ML 100 ML (OMNIPAQUE 350) VIAL IV ONE; +NS 100 ML (IVPB) BAG IV ONE
--- NOTE | 2021-09-02 10:33 | Diagnostic Imaging Report ---
PROCEDURE: CT chest with contrast, CT abdomen and pelvis with and without contrast. TECHNIQUE: Pre and post intravenous contrast axial imaging of the abdomen and pelvis and post contrast axial imaging of the chest were performed. Auto Exposure Controls were utilized during the CT exam to meet ALARA standards for radiation dose reduction. INDICATION: Metastatic ovarian cancer extending to colon. COMPARISON: 10/12/2020 and 07/17/2020 FINDINGS: Right-sided Port-A-Cath is in place the distal tip extending to the cavoatrial junction. Electronic device within the left breast is again identified and stable. A few calcified mediastinal and hilar lymph nodes are again identified. No new adenopathy within the chest. No aneurysmal dilatation of thoracic aorta. The heart is mildly enlarged. No significant pericardial effusion. Small right and tiny left pleural effusions are present, having developed since the prior examination. The trachea is patent. No pneumothorax. Calcified granuloma within the right upper lobe. 0.3 cm subpleural left lower lobe pulmonary nodule is unchanged since June 2020. 0.3 cm subpleural right upper lobe pulmonary nodule is unchanged since June 2020. No new suspicious pulmonary nodule or opacity. Scattered osseous degenerative changes without acute osseous abnormality. The liver is unremarkable. The spleen is unremarkable. The adrenal glands are unremarkable. The pancreas is unremarkable. The gallbladder is unremarkable. Cortical thinning of the bilateral kidneys is again identified. Otherwise, the kidneys are unremarkable. Moderate vascular calcifications without aneurysmal dilatation of the abdominal aorta. The urinary bladder is unremarkable. The uterus is not visualized, likely surgically absent. No abnormal adnexal mass lesion. Postsurgical changes involving the distal colon are again identified. No evidence of bowel obstruction or pneumatosis. No adenopathy or free air. Small amount of free fluid within the lower pelvis. Scattered osseous degenerative changes without acute osseous abnormality. IMPRESSION: Interval development of small right and trace left pleural effusions. Small amount of free fluid within the lower pelvis, minimally increased since the prior examination. Postsurgical changes associated with the distal colon without evidence of bowel obstruction or free air. No new suspicious pulmonary nodule or mass. Additional findings as above. Dictated by: Dictated on workstation # [id number]
== END ==
LOC: RAD 10:15
PROVIDERS: ATTEND Internal Medicine Hematology & Oncology
DX: J90 Pleural effusion, not elsewhere classified (principal); C56.9 Malignant neoplasm of unspecified ovary; C78.5 Secondary malignant neoplasm of large intestine and rectum
CPT/HCPCS: 71260; 74178

== ENCOUNTER 2021-09-09 11:48 | Outpatient (RCR) | payer MEDICARE ==
[2021-08-26 10:15] LABS: BASOPHILS % (AUTO) 1 % (0-10); NEUTROPHILS % (AUTO) 59 % (42-75)
[2021-08-26 10:17] LABS: EOSINOPHILS # (AUTO) 0.1 10^3/uL (0.0-0.3); EOSINOPHILS % (AUTO) 3 % (0-10); HEMATOCRIT 23 % (35-52); LYMPHOCYTES # (AUTO) 0.5 10^3/uL (1.0-4.0); LYMPHOCYTES % (AUTO) 27 % (12-44); MEAN CORPUSCULAR HEMOGLOBIN 25 pg (25-34); MEAN CORPUSCULAR HGB CONC 31 g/dL (32-36); MEAN CORPUSCULAR VOLUME 82 fL (80-99); MEAN PLATELET VOLUME 9.9 fL (9.0-12.2); MONOCYTES # (AUTO) 0.2 10^3/uL (0.0-1.0); MONOCYTES % (AUTO) 10 % (0-12); NEUTROPHILS # (AUTO) 1.1 10^3/uL (1.8-7.8); PLATELET COUNT 134 10^3/uL (130-400); WHITE BLOOD COUNT 1.9 10^3/uL (4.3-11.0)
[2021-08-26 10:37] LABS: ALBUMIN 3.7 GM/DL (3.2-4.5); CALCIUM 9.1 MG/DL (8.5-10.1); CREATININE SERUM 1.26 MG/DL (0.60-1.30); POTASSIUM 3.8 MMOL/L (3.6-5.0); TOTAL PROTEIN 6.3 GM/DL (6.4-8.2)
[~2021-09-09 11:48] MED LIST changes: -BARIUM SUSPENSION 2.1% (VANILLA SILQ) 450 ML PO ONE; -HOLD METFORMIN - RECEIVED CONTRAST 20 ML VIAL IV SCH; -IOHEXOL 350 MG/ML 100 ML (OMNIPAQUE 350) VIAL IV ONE; -NS 100 ML (IVPB) BAG IV ONE
== END 2021-09-15 | disposition home or self-care (01) ==
LOC: ONC 11:48
PROVIDERS: ATTEND Internal Medicine Hematology & Oncology
DX: Z45.2 Encounter for adjustment and management of vascular access device (principal); C56.9 Malignant neoplasm of unspecified ovary; C48.2 Malignant neoplasm of peritoneum, unspecified; D50.9 Iron deficiency anemia, unspecified; I25.10 Atherosclerotic heart disease of native coronary artery without angina pectoris; I48.91 Unspecified atrial fibrillation; J44.9 Chronic obstructive pulmonary disease, unspecified; I10 Essential (primary) hypertension; E78.2 Mixed hyperlipidemia; E03.9 Hypothyroidism, unspecified; D72.819 Decreased white blood cell count, unspecified; E66.9 Obesity, unspecified; Z87.440 Personal history of urinary (tract) infections
CPT/HCPCS: 80053; 82728; 83540; 83550; 85025; 86304; G0463; 36415; 36591; 99213

== ENCOUNTER 2021-09-26 05:30 | Outpatient (RCR) | payer MEDICARE ==
[~2021-09-26] VITALS: Ht 170.2 cm; Wt 92.8 kg
[~2021-09-26 05:30] MED LIST changes: +DILT120C53 PO; +FERR325T24 PO; +OLAP100T PO; +ONDA-106 PO; +PANT40TA52 PO; +PRED10TA22 PO; +PROC10TA10 PO; +TRAZ150T72 PO
== END 2021-09-26 11:58 | disposition home or self-care (01) ==
LOC: PREOP 05:30
PROVIDERS: ATTEND Surgery
DX: Z01.812 Encounter for preprocedural laboratory examination (principal); Z12.11 Encounter for screening for malignant neoplasm of colon; R13.10 Dysphagia, unspecified; Z20.822 Contact with and (suspected) exposure to COVID-19; Z85.43 Personal history of malignant neoplasm of ovary
CPT/HCPCS: 87635

== ENCOUNTER 2021-09-30 09:35 | Day surgery (SDC) | payer MEDICARE ==
[~2021-09-30] VITALS: Ht 170.2 cm; Wt 92.8 kg
[2021-09-30] MEDS ORDERED: LACTATED RINGERS 1,000 ML IV ONE (09:38)
[2021-09-30] MEDS ORDERED: LACTATED RINGERS 1,000 ML IV STA (09:41)
[2021-09-30] MEDS ORDERED: HURRICAINE EXT TUBE (BENZOCAINE) XX PRN (09:45)
[2021-09-30 09:55] VITALS: BP 185/111
[2021-09-30 10:00] VITALS: BP 177/105
[2021-09-30] MEDS ORDERED: meTOprolol 5 MG/5 ML (LOPRESSOR) VIAL IV ONE (10:15)
--- NOTE | 2021-09-30 10:22 | Progress Note-Pre Operative ---
Pre-Operative Progress Note H&P Reviewed The H&P was reviewed, patient examined and no changes noted. Date Seen by Provider: Sep 30, 2021 Time Seen by Provider: 10: Date H&P Reviewed: Sep 30, 2021 Time H&P Reviewed: :21 Pre-Operative Diagnosis: hx ovarian cancer extending to colon, dysphagia MINI HOFFMAN DO Sep 30, 2021 10:22
[2021-09-30] MEDS ORDERED: PROPOFOL INJECTION 50 ML IV ONE (10:26)
[2021-09-30 10:50] VITALS: BP 148/88
[2021-09-30 10:55] VITALS: BP 180/95
--- NOTE | 2021-09-30 10:56 | Progress Note-Post Operative ---
Post-Operative Progess Note Surgeon (s)/Teacher Hearing Impaired (s) Surgeon MINI HOFFMAN DO Teacher Hearing Impaired: na Pre-Operative Diagnosis hx ovarian cancer extending to colon, dysphagia Post-Operative Diagnosis hiatal hernia, diveticulosis Procedure & Operative Findings Date of Procedure 09/30/21 Procedure Performed/Findings egd c biopsies, colonoscopy Anesthesia Type per [facility] Estimated Blood Loss Estimated blood loss (mL): none Specimens/Packing Specimens Removed antrum, ge MINI HOFFMAN DO Sep 30, 2021 10:56
--- NOTE | 2021-09-30 10:58 | Discharge Inst-Simple/Standard ---
Discharge Inst-Standard Patient Instructions/Follow Up Plan of Care/Instructions/FU: 2 weeks Mishel Activity as Tolerated: Yes Discharge Diet: Regular Diet (high fiber) MINI HOFFMAN DO Sep 30, 2021 10:58
[2021-09-30 11:00] VITALS: BP 164/83
[2021-09-30 11:35] VITALS: BP 164/83
--- NOTE | 2021-09-30 13:36 | OPERATIVE REPORT ---
DATE OF SERVICE: 09/30/2021 PREOPERATIVE DIAGNOSES: History of ovarian cancer extending into the colon, dysphagia. POSTOPERATIVE DIAGNOSES: Hiatal hernia, diverticulosis. PROCEDURE: EGD with biopsies, colonoscopy. SURGEON: Mini Florentino DO ANESTHESIA: Per MDA. ESTIMATED BLOOD LOSS: None. COMPLICATIONS: None. SPECIMENS: Antrum, GE junction. INDICATIONS: The patient is a 75-year-old female with history of ovarian cancer that metastasized to the colon. She is having also dysphagia symptoms. She understands risks and benefits of procedures and wishes to proceed. Consent was signed in the chart. DESCRIPTION OF PROCEDURE: The patient was taken to the endoscopy suite, placed in left lateral recumbent position. Timeout was performed. Scope was inserted in mouth, esophagus, stomach and into the duodenum without difficulty. There were no polyps, masses or ulcerations within the duodenum. Scope was slowly retracted back into the stomach where it was further insufflated. Biopsy of the antrum was obtained. Scope was retroflexed noting a small hiatal hernia, no other pathology. Scope was returned to its normal position. No polyps, masses or ulcerations within the antrum or body. Scope was slowly retracted back until in the GE junction. Biopsy of the GE junction was obtained. No polyps, masses or ulcerations. Scope was slowly retracted back until completely removed. Digital rectal exam was performed. No palpable polyps, masses or ulcerations. Scope was inserted in the rectum and advanced all the way to cecum with minimal difficulty. Prep was adequate with irrigation and suction. Scope was slowly retracted back, diverticulosis throughout the colon. No polyps, masses or ulcerations within the cecum, ascending, transverse, descending and sigmoid colon. Once in the rectum, scope was retroflexed noting no other pathology. Scope was returned to its normal position, slowly withdrawn until completely removed. The patient tolerated the procedure well without any complications. She was taken to recovery room in stable condition. RECOMMENDATIONS: The patient will have repeat colonoscopy in 3 years. Any issues before that be seen at that time. Further recommendations pending biopsy results. Continue on current medications. Job ID: [id number] DocumentID: [id number] Dictated Date: 09/30/2021 11:01:24 Sharepoint Engineer Date: 09/30/2021 13:36:09 Dictated By: MINI FLORENTINO DO
--- NOTE | 2021-09-30 15:02 | Anesthesia-General Post-Op ---
MAC Patient Condition Mental Status/LOC: Same as Preop Cardiovascular: Satisfactory Nausea/Vomiting: Absent Respiratory: Satisfactory Pain: Controlled Complications: Absent Post Op Complications Complications None Follow Up Care/Instructions Patient Instructions None needed. Anesthesiology Discharge Order Discharge Order Patient was doing well this morning, no complaints, stable vital signs, no apparent adverse anesthesia problems. BHAVESH MCBRIDE DO Sep 30, 2021 15:02
== END 2021-09-30 11:37 | disposition home or self-care (01) ==
LOC: ENDO 09:35
PROVIDERS: ATTEND Surgery
DX: K44.9 Diaphragmatic hernia without obstruction or gangrene (principal); K29.50 Unspecified chronic gastritis without bleeding; K57.30 Diverticulosis of large intestine without perforation or abscess without bleeding; K22.9 Disease of esophagus, unspecified; K59.09 Other constipation; Z85.43 Personal history of malignant neoplasm of ovary; Z87.891 Personal history of nicotine dependence; Z80.9 Family history of malignant neoplasm, unspecified; Z90.710 Acquired absence of both cervix and uterus; Z90.722 Acquired absence of ovaries, bilateral

== ENCOUNTER → 2021-10-16 | Outpatient (RCR) | payer MEDICARE ==
[2021-09-18 10:46] LABS: BASOPHILS % (AUTO) 0 % (0-10); EOSINOPHILS # (AUTO) 0.1 10^3/uL (0.0-0.3); EOSINOPHILS % (AUTO) 2 % (0-10); HEMATOCRIT 32 % (35-52); HEMOGLOBIN 9.9 g/dL (11.5-16.0); LYMPHOCYTES # (AUTO) 0.7 10^3/uL (1.0-4.0); LYMPHOCYTES % (AUTO) 14 % (12-44); MEAN CORPUSCULAR HEMOGLOBIN 25 pg (25-34); MEAN CORPUSCULAR HGB CONC 31 g/dL (32-36); MEAN CORPUSCULAR VOLUME 83 fL (80-99); MEAN PLATELET VOLUME 8.6 fL (9.0-12.2); MONOCYTES # (AUTO) 0.4 10^3/uL (0.0-1.0); MONOCYTES % (AUTO) 9 % (0-12); NEUTROPHILS # (AUTO) 3.4 10^3/uL (1.8-7.8); NEUTROPHILS % (AUTO) 74 % (42-75); PLATELET COUNT 179 10^3/uL (130-400); WHITE BLOOD COUNT 4.6 10^3/uL (4.3-11.0)
[2021-09-18 11:21] LABS: ALBUMIN 3.9 GM/DL (3.2-4.5); BILIRUBIN,TOTAL 1.1 MG/DL (0.1-1.0); CALCIUM 9.1 MG/DL (8.5-10.1); CREATININE SERUM 1.06 MG/DL (0.60-1.30); POTASSIUM 3.8 MMOL/L (3.6-5.0); TOTAL PROTEIN 6.4 GM/DL (6.4-8.2)
== END | disposition home or self-care (01) ==
LOC: ONC 09-18 09:40
PROVIDERS: ATTEND Internal Medicine Hematology & Oncology
DX: Z45.2 Encounter for adjustment and management of vascular access device (principal); C56.9 Malignant neoplasm of unspecified ovary; C48.2 Malignant neoplasm of peritoneum, unspecified; D50.9 Iron deficiency anemia, unspecified; I25.10 Atherosclerotic heart disease of native coronary artery without angina pectoris; I48.91 Unspecified atrial fibrillation; J44.9 Chronic obstructive pulmonary disease, unspecified; I10 Essential (primary) hypertension; E78.2 Mixed hyperlipidemia; E03.9 Hypothyroidism, unspecified; D72.819 Decreased white blood cell count, unspecified; E66.9 Obesity, unspecified; Z87.440 Personal history of urinary (tract) infections
CPT/HCPCS: 80053; 82728; 83540; 83550; 85025; G0463; 36415; 99213

== ENCOUNTER → 2021-12-03 | Outpatient (CLI) | payer MEDICARE ==
--- NOTE | 2021-12-03 16:57 | Diagnostic Imaging Report ---
INDICATION: Left foot pain and bruising. EXAMINATION: AP, oblique and lateral views of the left foot were obtained. No fracture or acute bony abnormality is seen. There are diffuse degenerative changes in the tarsal bones. There is degenerative change of the 1st MTP joint with mild hallux valgus deformity. There is diffuse degenerative change throughout the interphalangeal joints. No acute finding is seen. There is plantar and posterior calcaneal spurring. IMPRESSION: Diffuse degenerative changes with no acute abnormality in the left foot. Dictated by: Dictated on workstation # [id number]
== END ==
LOC: RAD 16:14
PROVIDERS: ATTEND Nurse Practitioner Family
DX: S90.32XA Contusion of left foot, initial encounter (principal); M19.072 Primary osteoarthritis, left ankle and foot; X58.XXXA Exposure to other specified factors, initial encounter
CPT/HCPCS: 73630

== ENCOUNTER 2022-01-21 14:16 | Outpatient (RCR) | payer MEDICARE, MEDICAID ==
[2022-01-16 13:44] LABS: BASOPHILS % (AUTO) 0 % (0-10); EOSINOPHILS # (AUTO) 0.1 10^3/uL (0.0-0.3); EOSINOPHILS % (AUTO) 3 % (0-10); HEMATOCRIT 36 % (35-52); HEMOGLOBIN 11.4 g/dL (11.5-16.0); LYMPHOCYTES # (AUTO) 0.7 10^3/uL (1.0-4.0); LYMPHOCYTES % (AUTO) 27 % (12-44); MEAN CORPUSCULAR HEMOGLOBIN 26 pg (25-34); MEAN CORPUSCULAR HGB CONC 32 g/dL (32-36); MEAN CORPUSCULAR VOLUME 82 fL (80-99); MEAN PLATELET VOLUME 9.1 fL (9.0-12.2); MONOCYTES # (AUTO) 0.2 10^3/uL (0.0-1.0); MONOCYTES % (AUTO) 8 % (0-12); NEUTROPHILS # (AUTO) 1.6 10^3/uL (1.8-7.8); NEUTROPHILS % (AUTO) 61 % (42-75); PLATELET COUNT 169 10^3/uL (130-400); WHITE BLOOD COUNT 2.7 10^3/uL (4.3-11.0)
[2022-01-16 14:04] LABS: BILIRUBIN,TOTAL 0.8 MG/DL (0.1-1.0); CALCIUM 9.5 MG/DL (8.5-10.1); CREATININE SERUM 1.22 MG/DL (0.60-1.30); POTASSIUM 3.9 MMOL/L (3.6-5.0); TOTAL PROTEIN 6.5 GM/DL (6.4-8.2)
== END 2022-02-15 | disposition home or self-care (01) ==
LOC: ONC 14:16
PROVIDERS: ATTEND Internal Medicine Hematology & Oncology
DX: C56.9 Malignant neoplasm of unspecified ovary (principal); C48.2 Malignant neoplasm of peritoneum, unspecified; D50.9 Iron deficiency anemia, unspecified; I25.10 Atherosclerotic heart disease of native coronary artery without angina pectoris; I48.91 Unspecified atrial fibrillation; J44.9 Chronic obstructive pulmonary disease, unspecified; I10 Essential (primary) hypertension; E78.2 Mixed hyperlipidemia; E03.9 Hypothyroidism, unspecified; E66.9 Obesity, unspecified; Z87.440 Personal history of urinary (tract) infections
CPT/HCPCS: 36415; 80053; 82728; 83540; 83550; 85025; 86304; 99213

== ENCOUNTER 2022-01-31 13:56 | Emergency (ER) | payer MEDICARE, MEDICAID ==
[~2022-01-31] VITALS: Ht 170.2 cm; Wt 88.5 kg
[2022-01-31] MEDS ORDERED: fentaNYL INJ 100 MCG/2 ML AMP IVP ONE (14:15)
--- NOTE | 2022-01-31 14:15 | ED Fall/Injury ---
General Stated Complaint: DIZZINESS/FALL Source: patient, EMS Exam Limitations: no limitations History of Present Illness Date Seen by Provider: Jan 31, 2022 Time Seen by Provider: 14:00 Initial Comments Patient is a 76-year-old female who has chronic longstanding intermittent dizziness. She developed some dizziness this afternoon which caused her to fall onto her left side. She states that she did hit her head but she did not have a loss of consciousness. She has a history of atrial fibrillation and is on blood thinners. She is not a diabetic. She denies any recent illnesses such as fevers, chills, cough or congestion. No chest pain or shortness of breath. No abdominal pain, nausea or vomiting. She is in a cervical collar on arrival per EMS. She does endorse midline tenderness on palpation. No numbness tingling or weakness to her extremities. No loss of bowel or bladder function. SHe also complains of a little left hip discomfort and with ROM of the extremities - has increased back pain. All other review of systems reviewed and negative except as stated. Occurred: just prior to arrival Severity: mild Injuries/Pain Location: back, pelvis (left) Context: lost balance Loss of Consciousness: no loss of consciousness Associated Symptoms (Fall): Dizziness Allergies and Home Medications Allergies Coded Allergies: Penicillins (Verified Allergy, Mild, 01/04/14) Mjtrjin-Cjl-Sey Reductase Inhibitor (Verified Allergy, Mild, 01/04/14) codeine (Verified Allergy, Mild, 01/04/14) opium tincture (Verified Allergy, Mild, 01/04/14) tramadol (Verified Allergy, Mild, 01/04/14) Patient Home Medication List Home Medication List Reviewed: Yes Atorvastatin Calcium (Atorvastatin Calcium) 10 Mg Tablet, 10 MG PO HS, (Reported) Entered as Reported by: MOHIT RODRIGUEZ on 06/04/20 1438 Bisacodyl (Bisacodyl) 10 Mg Supp.rect, 10 MG RC Q12H PRN for CONSTIPATION-2ND LINE Prescribed by: NORMA OWENS on 01/07/21 1256 Diltiazem HCl (Cartia Xt) 120 Mg Cap.er.24h, 120 MG PO DAILY, (Reported) Entered as Reported by: TANG MATHIAS on 09/22/21 1513 Ferrous Sulfate (Ferosul) 325 Mg Tablet, 325 MG PO DAILY, (Reported) Entered as Reported by: TANG MATHIAS on 09/22/211512 Fluticasone Propionate (Flovent Hfa 110 mcg) 1 Ea Aero, 2 EA IH BID, (Reported) Entered as Reported by: MOHIT RODRIGUEZ on 06/04/20 143 Hydroxyzine HCl (Hydroxyzine HCl) 25 Mg Tablet, 25 MG PO BID, (Reported) Entered as Reported by: MOHIT RODRIGUEZ on 06/04/20 143 Levothyroxine Sodium (Levothyroxine Sodium) 125 Mcg Tablet, 125 MCG PO DAILY, (Reported) Entered as Reported by: SHAWN ROLLE on 08/21/15 0856 Metoprolol Succinate (Metoprolol Succinate) 200 Mg Tab.er.24h, 200 MG PO DAILY, (Reported) Entered as Reported by: MOHIT RODRIGUEZ on 06/04/20 143 Montelukast Sodium (Montelukast Sodium) 10 Mg Tablet, 10 MG PO DAILY, (Reported) Entered as Reported by: MOHIT RODRIGUEZ on 06/04/20 143 Olaparib (Lynparza) 100 Mg Tablet, 100 MG PO BID, (Reported) Entered as Reported by: TANG MATHIAS on 09/22/211512 Ondansetron HCl (Ondansetron HCl) 8 Mg Tablet, 8 MG PO DAILY, (Reported) Entered as Reported by: TANG MATHIAS on 09/22/211512 Pantoprazole Sodium (Pantoprazole Sodium) 40 Mg Tablet.dr, 40 MG PO DAILY, (Reported) Entered as Reported by: TANG MATHIAS on 09/22/211512 Prednisone (Prednisone) 10 Mg Tab.ds.pk, 10 MG PO PRN, (Reported) Entered as Reported by: TANG MATHIAS on 09/22/211512 Prochlorperazine Maleate (Prochlorperazine Maleate) 10 Mg Tablet, 10 MG PO TID, (Reported) Entered as Reported by: TANG MATHIAS on 09/22/211512 Trazodone HCl (Trazodone HCl) 150 Mg Tablet, 150 MG PO HS, (Reported) Entered as Reported by: TANG MATHIAS on 09/22/211512 Review of Systems Review of Systems Constitutional: other (dizziness) Eyes: No Symptoms Reported Respiratory: no symptoms reported Cardiovascular: no symptoms reported Gastrointestinal: no symptoms reported Genitourinary: no symptoms reported Musculoskeletal: back pain, joint pain (left hip), neck pain Skin: no symptoms reported All Other Systems Reviewed Negative Unless Noted: Yes Past Bizfgsk-Lrtyou-Emsmcs Hx Immunizations Up To Date Tetanus Booster (TDap): Unknown First/Initial COVID19 Vaccinat: NO Second COVID19 Vaccination Yousuf: NO Third COVID19 Vaccination Date: NO Seasonal Allergies Seasonal Allergies: Yes Past Medical History Surgeries: Yes (DENTAL;HEMORRHOIDECTOMY;CARDIAC CATHS-NO INTERVENTION;LOOP RECORDER;CATARAC) Abdominal, Cardiac, Eye Surgery, Hysterectomy, Rectal, Tubal Ligation Respiratory: Yes Asthma, Sleep Apnea Currently Using CPAP: No (PATIENT WEARS 02 AT NIGHT (3L/NC) ) Currently Using BIPAP: No Cardiac: Yes ( CHF;'HOLE IN MY HEART"PER PT;CARDIAC CATHS-NO INTERVENTION; LOOP RECORDER;) Atrial Fibrillation, Coronary Artery Disease, High Cholesterol, Hypertension, Irregular Heartbeat, Peripheral Vascular Neurological: Yes Neuropathy 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 Disorders: No 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 Sexually Transmitted Disease: No HIV/AIDS: No Genitourinary: Yes (INCONTINENCE) Bladder Infection, UTI-Chronic Gastrointestinal: Yes Gastroesophageal Reflux, Chronic Constipation, Hemorrhoids, Irritable Bowel Musculoskeletal: Yes (CHRONIC NECK, BACK AND KNEE PAIN) Osteoporosis, Arthritis, Fibromyalgia, Chronic Back Pain Endocrine: Yes (HYPOGLYCEMIA; OBESITY) Hypothyroidsim HEENT: Yes (WEARS GLASSES; CATARACT SURGERY) Cataract Hearing Impairment: Hard of Hearing Cancer: Yes Ovarian Did You Recieve Any Treatments: Yes What Type of Treatment Did You: Surgical Intervention Psychosocial: Yes Anxiety Integumentary: No Blood Disorders: Yes (HX ANEMIA) Adverse Reaction/Blood Tranf: No (N/A) Family Medical History Dementia 19 FATHER Drug abuse G8 BROTHER G8 SISTER FH: pancreatic cancer 19 MOTHER ( OF PANCREATIC CA AGE 67) Thyroid disease 19 MOTHER CARDIAC CATHS--LAST ONE 04/12/19--MINIMAL SMALL VESSEL DISEASE, NO INTERVENTION LOOP RECORDER PLACED 12/10/18 FOR CHRONIC ATRIAL FIBRILLATION CAROTID STENOSIS Physical Exam Vital Signs Vital Signs - First Documented 01/31/22 13:58 Temp 36.1 Pulse 80 Resp 20 B/P (MAP) 196/100 (132) Pulse Ox 97 O2 Delivery Room Air Capillary Refill : Height, Weight, BMI Height: 5'7.00" Weight: 235lbs. 11.2oz. 106.778639ux; 32.03 BMI Method:Stated General Appearance: WD/WN, no apparent distress HEENT: PERRL/EOMI Neck: normal inspection, other (cervical collar in place; patient reports midline tenderness on plaption; ) Cardiovascular: irregularly irregular (60's) Respiratory: lungs clear, normal breath sounds, no respiratory distress, no accessory muscle use Gastrointestinal: normal bowel sounds, non tender, soft Back: normal inspection, vertebral tenderness (throughout cervical spine and thoracic spine) Extremities: normal range of motion, normal inspection, no pedal edema, no calf tenderness, pelvis stable, other (no point tenderness over the left hip; normal ROM both hips) Neurologic/Psychiatric: alert, normal mood/affect, oriented x 3; No motor weakness, No sensory deficit; other (pain reproduced in the back with SLR bilaterally - no radiating pain; dorsiflexion of the great toes normal and symmetric) Skin: normal color, warm/dry Benson Coma Score Best Eye Response: (4) Open Spontaneously Best Verbal Response: (5) Oriented Best Motor Response: (6) Obeys Commands Progress/Results/Core Measures Results/Orders Lab Results Laboratory Tests Test 01/31/22 14:10 Range/Units Glucometer 86 70-110 MG/DL My Orders Orders - MOISÉS DOTSON MD Ct Head/Cervical Spine Wo (01/31/22 14:08) Ct Thoracic Spine Wo (01/31/22 14:08) Fentanyl Inj (Sublimaze Injection) (01/31/22 14:15) Accucheck Stat ONCE (01/31/22 14:08) Medications Given in ED Current Medications Medications Dose Ordered Sig/Kareem Route Start Time Stop Time Status Last Admin Dose Admin Fentanyl Citrate 50 mcg ONCE ONCE IVP 01/31/22 14:15 01/31/22 14:16 DC 01/31/22 14:25 50 MCG Vital Signs/I&O 01/31/22 13:58 Temp 36.1 Pulse 80 Resp 20 B/P (MAP) 196/100 (132) Pulse Ox 97 O2 Delivery Room Air Progress Progress Note #1: Time: 14:14 Progress Note blood sugar 86 Progress Note #2: Time: 14:[address] scan results reviewed, no bony cervical spine or thoracic spine injury was discovered. No intracranial abnormalities on head CT. Her vital signs remained stable. She will be given some ibuprofen for pain. She follows with a primary care and [facility]. Cervical collar was removed, she demonstrates good active range of motion. No significant increase in pain with range of motion. No numbness weakness or tingling elicited on range of motion of the cervical spine. I advised her that she will probably be a little bit more sore tomorrow. Return precautions provided. All questions sought and answered from the patient and the . Patient is stable for discharge. Departure Impression Primary Impression: Fall Qualified Codes: W19.XXXA - Unspecified fall, initial encounter Additional Impressions: Cervical strain, acute Qualified Codes: S16.1XXA - Strain of muscle, fascia and tendon at neck level, initial encounter Strain of thoracic back region Disposition: 01 HOME, SELF-CARE Condition: Stable Departure-Patient Inst. Decision time for Depature: 15:00 Referrals: JOLANTA MCNALLY MD (PCP/Family) Primary Care Physician Patient Instructions: Cervical Muscle Strain, Back Muscle Strain (DC) Add. Discharge Instructions: Alternate ice packs and heating pads to the sore areas of your neck and back. You can take vlbh-whh-ufjyydy ibuprofen 2 to 3 tablets which is 400 to 600 mg every 6 hours with food as needed for pain. If you develop worsening pain especially with numbness, tingling or weakness in your extremities please come back to the emergency room for reevaluation. Please follow-up with your primary care provider as needed. Copy Copies To 1: JOLANTA MNCALLY MD, KATHRYN M MD Jan 31, 2022 14:15
--- NOTE | 2022-01-31 14:49 | Diagnostic Imaging Report ---
PROCEDURE: CT head and CT cervical spine without contrast. TECHNIQUE: Multiple contiguous axial images were obtained through the brain and cervical spine without the use of intravenous contrast. Sagittal and coronal reformations through the cervical spine were then performed. Auto Exposure Controls were utilized during the CT exam to meet ALARA standards for radiation dose reduction. INDICATION: Fall, neck and back pain EXAMINATION: CT brain CT cervical spine 01/31/2022 COMPARISON: 10/23/2017 FINDINGS: There is chronic ischemic disease in a periventricular and deep white matter distribution similar to previous examination. No superimposed acute infarct appreciated. There is no hemorrhage. There is no mass, mass effect or midline shift. No hydrocephalus. The osseous structures appear intact. Paranasal sinuses unremarkable for acute abnormality. Mastoid air cells clear. IMPRESSION: 1. No acute intracranial process. CT cervical spine: There is normal height and alignment of the vertebral bodies. Multilevel spur disc complexes suspected with multilevel facet hypertrophy noted bilaterally. No acute osseous abnormality is appreciated. Prevertebral soft tissues demonstrate overall prominence of the thyroid gland better characterized sonographically on a nonemergent basis. The remaining prevertebral soft tissues unremarkable. IMPRESSION: 1. Multilevel diffuse degenerative disease with no superimposed acute osseous abnormality. Dictated by: Dictated on workstation # [id number]
--- NOTE | 2022-01-31 14:50 | Diagnostic Imaging Report ---
PROCEDURE: CT thoracic spine without contrast. TECHNIQUE: Multiple axial computerized tomography images were obtained from the base of the thoracic spine to the vertex without intravenous contrast. Auto Exposure Controls were utilized during the CT exam to meet ALARA standards for radiation dose reduction. INDICATION: Fall and back pain. FINDINGS: There is normal thoracic kyphotic curvature. The vertebral body heights are maintained. No acute compression fracture is seen. There is multilevel spondylosis with variable disc space narrowing and anterior osteophyte formation. Bony canal appears patent. Paraspinous tissues are unremarkable. IMPRESSION: Thoracic spondylosis. No acute bony abnormality is detected. Dictated by: Dictated on workstation # [id number]
[2022-01-31 15:08] VITALS: BP 184/101
[2022-01-31] MEDS ORDERED: IBUPROFEN 600 MG (MOTRIN) TAB PO ONE (15:15)
== END 2022-01-31 15:08 | disposition home or self-care (01) ==
LOC: EDUNIT# 13:56 → ER 13:57
DX: S16.1XXA Strain of muscle, fascia and tendon at neck level, initial encounter (principal); S29.012A Strain of muscle and tendon of back wall of thorax, initial encounter; I48.91 Unspecified atrial fibrillation; I25.10 Atherosclerotic heart disease of native coronary artery without angina pectoris; E66.9 Obesity, unspecified; Z68.32 Body mass index [BMI] 32.0-32.9, adult; Z28.310 Unvaccinated for COVID-19; Z79.01 Long term (current) use of anticoagulants; W01.0XXA Fall on same level from slipping, tripping and stumbling without subsequent striking against object, initial encounter
CPT/HCPCS: 70450; 72125; 72128; 82947

== ENCOUNTER 2022-04-29 09:24 | Outpatient (RCR) | payer MEDICARE, MEDICAID ==
[~2022-04-29 09:24] MED LIST changes: +ALBU8.5H6 INH
== END 2022-05-18 | disposition home or self-care (01) ==
LOC: ONC 09:24
PROVIDERS: ATTEND Internal Medicine Hematology & Oncology
DX: Z45.2 Encounter for adjustment and management of vascular access device (principal); C56.9 Malignant neoplasm of unspecified ovary; C48.2 Malignant neoplasm of peritoneum, unspecified; D50.9 Iron deficiency anemia, unspecified; I25.10 Atherosclerotic heart disease of native coronary artery without angina pectoris; I48.91 Unspecified atrial fibrillation; J44.9 Chronic obstructive pulmonary disease, unspecified; I10 Essential (primary) hypertension; E78.2 Mixed hyperlipidemia; E03.9 Hypothyroidism, unspecified; E66.9 Obesity, unspecified; Z87.440 Personal history of urinary (tract) infections
CPT/HCPCS: 96523

== ENCOUNTER 2022-05-27 09:03 | Outpatient (RCR) | payer MEDICARE, MEDICAID ==
[~2022-05-27 09:03] MED LIST changes: +MAGN296S68 PO; -MAGN296S71 PO
[2022-05-27 10:04] LABS: BASOPHILS % (AUTO) 1 % (0-10); EOSINOPHILS # (AUTO) 0.1 10^3/uL (0.0-0.3); EOSINOPHILS % (AUTO) 4 % (0-10); HEMATOCRIT 35 % (35-52); LYMPHOCYTES # (AUTO) 0.7 10^3/uL (1.0-4.0); LYMPHOCYTES % (AUTO) 25 % (12-44); MEAN CORPUSCULAR HEMOGLOBIN 26 pg (25-34); MEAN CORPUSCULAR HGB CONC 31 g/dL (32-36); MEAN CORPUSCULAR VOLUME 84 fL (80-99); MEAN PLATELET VOLUME 9.3 fL (9.0-12.2); MONOCYTES # (AUTO) 0.3 10^3/uL (0.0-1.0); MONOCYTES % (AUTO) 10 % (0-12); NEUTROPHILS # (AUTO) 1.6 10^3/uL (1.8-7.8); NEUTROPHILS % (AUTO) 60 % (42-75); PLATELET COUNT 156 10^3/uL (130-400); WHITE BLOOD COUNT 2.7 10^3/uL (4.3-11.0)
[2022-05-27 10:26] LABS: ALBUMIN 3.7 GM/DL (3.2-4.5); BILIRUBIN,TOTAL 0.8 MG/DL (0.1-1.0); CALCIUM 8.9 MG/DL (8.5-10.1); CREATININE SERUM 1.26 MG/DL (0.60-1.30); POTASSIUM 4.2 MMOL/L (3.6-5.0); TOTAL PROTEIN 5.9 GM/DL (6.4-8.2)
== END 2022-06-17 | disposition home or self-care (01) ==
LOC: ONC 09:03
PROVIDERS: ATTEND Internal Medicine Hematology & Oncology
DX: C56.9 Malignant neoplasm of unspecified ovary (principal); C48.2 Malignant neoplasm of peritoneum, unspecified; D50.9 Iron deficiency anemia, unspecified; I25.10 Atherosclerotic heart disease of native coronary artery without angina pectoris; I48.91 Unspecified atrial fibrillation; J44.9 Chronic obstructive pulmonary disease, unspecified; I10 Essential (primary) hypertension; E78.2 Mixed hyperlipidemia; E03.9 Hypothyroidism, unspecified; E66.9 Obesity, unspecified; Z87.440 Personal history of urinary (tract) infections
CPT/HCPCS: 80053; 82728; 83540; 83550; 85025; 86304; G0463; 99213

== ENCOUNTER → 2022-06-05 | Outpatient (CLI) | payer OTHER, MEDICAID ==
[~2022-06-05] MED LIST changes: +CATHETER FLUSH 10 ML SYR IV PRN; +HOLD METFORMIN - RECEIVED CONTRAST 20 ML VIAL IV SCH; +IOHEXOL 350 MG/ML 100 ML (OMNIPAQUE 350) VIAL IV ONE; +NS 100 ML (IVPB) BAG IV ONE
--- NOTE | 2022-06-05 11:55 | Diagnostic Imaging Report ---
PROCEDURE: CT chest, abdomen, and pelvis with contrast. TECHNIQUE: Multiple contiguous axial images were obtained through the chest, abdomen, and pelvis after the administration of intravenous contrast. Auto Exposure Controls were utilized during the CT exam to meet ALARA standards for radiation dose reduction. INDICATION: Extraovarian primary peritoneal carcinoma. CORRELATION is made with prior CT from 09/02/2021. CT CHEST: The right chest wall port has the tip at the SVC right atrial junction. There is an electronic device in the left chest wall. No axillary lymphadenopathy is identified. No mediastinal or hilar lymphadenopathy is detected. There is no pericardial fluid. Previously noted small bilateral effusions have resolved. A tiny nodule right upper lobe laterally appears stable. Tiny nodule posterior medial left lower lobe is stable. No new pulmonary mass is detected. CT ABDOMEN AND PELVIS: No discrete liver mass is identified. The gallbladder is unremarkable. No biliary ductal dilatation is seen. The pancreas and spleen are unremarkable. No adrenal mass is detected. The kidneys are unremarkable. Aorta is calcified but nonaneurysmal. No central retroperitoneal or mesenteric lymphadenopathy is identified. Bowel loops are normal caliber. There are postoperative changes of the sigmoid colon. There is some diverticulosis of the sigmoid colon but no evidence of acute diverticulitis. No free fluid is seen. Bladder is decompressed. Uterus appears to be surgically absent. No definite pelvic lymphadenopathy is identified. The bony structures are nonacute. IMPRESSION: 1. Resolution of previously noted bilateral pleural effusions. No thoracic lymphadenopathy or evidence of pulmonary metastatic disease is detected. 2. Stable CT of the abdomen and pelvis since prior study from August 2021. No abdominal or pelvic lymphadenopathy or evidence of metastatic disease is identified. There is uncomplicated diverticulosis. Dictated by: Dictated on workstation # [id number]
== END ==
LOC: RAD 09:55
PROVIDERS: ATTEND Internal Medicine Hematology & Oncology
DX: K57.30 Diverticulosis of large intestine without perforation or abscess without bleeding (principal); J90 Pleural effusion, not elsewhere classified; C48.2 Malignant neoplasm of peritoneum, unspecified
CPT/HCPCS: 71260; 74177

== ENCOUNTER → 2022-06-19 | Outpatient (CLI) | payer MEDICARE, MEDICAID ==
[~2022-06-19] MED LIST changes: -CATHETER FLUSH 10 ML SYR IV PRN; -HOLD METFORMIN - RECEIVED CONTRAST 20 ML VIAL IV SCH; -IOHEXOL 350 MG/ML 100 ML (OMNIPAQUE 350) VIAL IV ONE; -NS 100 ML (IVPB) BAG IV ONE
[2022-06-19 09:51] LABS: CHOLESTEROL 216 MG/DL (< 200); HDL CHOLESTEROL 72 MG/DL (40-60); TRIGLYCERIDES 77 MG/DL (<150); VLDL CHOLESTEROL 15 MG/DL (5-40)
== END ==
LOC: LAB 08:58
PROVIDERS: ATTEND Physician Assistant
DX: E78.2 Mixed hyperlipidemia (principal)
CPT/HCPCS: 36415; 80061

== ENCOUNTER 2022-06-24 17:43 | Emergency (ER) | payer OTHER, MEDICAID ==
[~2022-06-24] VITALS: Ht 170.2 cm; Wt 77.1 kg
--- NOTE | 2022-06-24 18:52 | ED General ---
General Chief Complaint: General Problems/Pain Stated Complaint: SORE THROAT - COUGH - WEAKNESS - SORE ON BACK Nursing Triage Note: PT AMB TO TRIAGE WITH COMPLAINT OF SORE THROAT, BODY ACHES, AND SORE ON RIGHT LOWER BACK. STATES SYMPTOMS STARTED TODAY. Source of Information: Patient Exam Limitations: No Limitations Allergies and Home Medications Allergies Coded Allergies: Penicillins (Verified Allergy, Mild, 01/04/14) Wbsulxg-IWI-MbC Reductase Inhibitor (Verified Allergy, Mild, 01/04/14) codeine (Verified Allergy, Mild, 01/04/14) opium tincture (Verified Allergy, Mild, 01/04/14) tramadol (Verified Allergy, Mild, 01/04/14) Patient Home Medication List Atorvastatin Calcium (Atorvastatin Calcium) 10 Mg Tablet, 10 MG PO HS, (Reported) Entered as Reported by: MOHIT RODRIGUEZ on 06/04/20 1438 Bisacodyl (Bisacodyl) 10 Mg Supp.rect, 10 MG RC Q12H PRN for CONSTIPATION-2ND LINE Prescribed by: NORMA OWENS on 01/07/21 1256 Diltiazem HCl (Cartia Xt) 120 Mg Cap.er.24h, 120 MG PO DAILY, (Reported) Entered as Reported by: TANG MATHIAS on 09/22/21 1513 Ferrous Sulfate (Ferosul) 325 Mg Tablet, 325 MG PO DAILY, (Reported) Entered as Reported by: TANG MATHIAS on 09/22/21 1513 Fluticasone Propionate (Flovent Hfa 110 mcg) 1 Ea Aero, 2 EA IH BID, (Reported) Entered as Reported by: MOHIT RODRIGUEZ on 06/04/20 1438 Hydroxyzine HCl (Hydroxyzine HCl) 25 Mg Tablet, 25 MG PO BID, (Reported) Entered as Reported by: MOHIT RODRIGUEZ on 06/04/20 1438 Levothyroxine Sodium (Levothyroxine Sodium) 125 Mcg Tablet, 125 MCG PO DAILY, (Reported) Entered as Reported by: SHAWN ROLLE on 08/21/15 0856 Metoprolol Succinate (Metoprolol Succinate) 200 Mg Tab.er.24h, 200 MG PO DAILY, (Reported) Entered as Reported by: MOHIT RODRIGUEZ on 06/04/20 1438 Montelukast Sodium (Montelukast Sodium) 10 Mg Tablet, 10 MG PO DAILY, (Reported) Entered as Reported by: MOHIT RODRIGUEZ on 06/04/20 1438 Olaparib (Lynparza) 100 Mg Tablet, 100 MG PO BID, (Reported) Entered as Reported by: TANG MATHIAS on 09/22/211512 Ondansetron HCl (Ondansetron HCl) 8 Mg Tablet, 8 MG PO DAILY, (Reported) Entered as Reported by: TANG MATHIAS on 09/22/211512 Pantoprazole Sodium (Pantoprazole Sodium) 40 Mg Tablet.dr, 40 MG PO DAILY, (Reported) Entered as Reported by: TANG MATHIAS on 09/22/211512 Prednisone (Prednisone) 10 Mg Tab.ds.pk, 10 MG PO PRN, (Reported) Entered as Reported by: TANG MATHIAS on 09/22/211512 Prochlorperazine Maleate (Prochlorperazine Maleate) 10 Mg Tablet, 10 MG PO TID, (Reported) Entered as Reported by: TANG MATHIAS on 09/22/211512 Trazodone HCl (Trazodone HCl) 150 Mg Tablet, 150 MG PO HS, (Reported) Entered as Reported by: TANG MATHIAS on 09/22/211512 Past Sctrrpp-Dcnzbh-Ibxilf Hx Patient Social History Tobacco Use?: No Use of E-Cig and/or Vaping dev: No Substance use?: No Alcohol Use?: Yes Alcohol Frequency: Once in a while Pt feels they are or have been: No Immunizations Up To Date Tetanus Booster (TDap): Unknown First/Initial COVID19 Vaccinat: N/A Second COVID19 Vaccination Yousuf: N/A Third COVID19 Vaccination Date: N/A Seasonal Allergies Seasonal Allergies: Yes Past Medical History Surgeries: Yes (DENTAL;HEMORRHOIDECTOMY;CARDIAC CATHS-NO INTERVENTION;LOOP RECORDER;CATARAC) Abdominal, Cardiac, Eye Surgery, Hysterectomy, Rectal, Tubal Ligation Respiratory: Yes Asthma, Sleep Apnea Currently Using CPAP: No (PATIENT WEARS 02 AT NIGHT (3L/NC) ) Currently Using BIPAP: No Cardiac: Yes ( CHF;'HOLE IN MY HEART"PER PT;CARDIAC CATHS-NO INTERVENTION; LOOP RECORDER;) Atrial Fibrillation, Coronary Artery Disease, High Cholesterol, Hypertension, Irregular Heartbeat, Peripheral Vascular Neurological: Yes Neuropathy 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 Disorders: No 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 Sexually Transmitted Disease: No HIV/AIDS: No Genitourinary: Yes (INCONTINENCE) Bladder Infection, UTI-Chronic Gastrointestinal: Yes Gastroesophageal Reflux, Chronic Constipation, Hemorrhoids, Irritable Bowel Musculoskeletal: Yes (CHRONIC NECK, BACK AND KNEE PAIN) Osteoporosis, Arthritis, Fibromyalgia, Chronic Back Pain Endocrine: Yes (HYPOGLYCEMIA; OBESITY) Hypothyroidsim HEENT: Yes (WEARS GLASSES; CATARACT SURGERY) Cataract Hearing Impairment: Hard of Hearing Cancer: Yes Ovarian Did You Recieve Any Treatments: Yes What Type of Treatment Did You: Surgical Intervention Psychosocial: Yes Anxiety Integumentary: No Blood Disorders: Yes (HX ANEMIA) Adverse Reaction/Blood Tranf: No (N/A) Family Medical History Dementia 19 FATHER Drug abuse G8 BROTHER G8 SISTER FH: pancreatic cancer 19 MOTHER ( OF PANCREATIC CA AGE 67) Thyroid disease 19 MOTHER CARDIAC CATHS--LAST ONE 04/12/19--MINIMAL SMALL VESSEL DISEASE, NO INTERVENTION LOOP RECORDER PLACED 12/10/18 FOR CHRONIC ATRIAL FIBRILLATION CAROTID STENOSIS Physical Exam Vital Signs Vital Signs - First Documented 06/24/22 17:48 Temp 36.8 Pulse 69 Resp 17 B/P (MAP) 154/83 (106) Pulse Ox 97 O2 Delivery Room Air Capillary Refill : Less Than 3 Seconds Height, Weight, BMI Height: 5'7.00" Weight: 235lbs. 11.2oz. 106.802943am; 26.00 BMI Method:Stated Progress/Results/Core Measures Suspected Sepsis SIRS Temperature: Pulse: 69 Respiratory Rate: 17 Blood Pressure 154 /83 Mean: 106 Results/Orders Lab Results Laboratory Tests Test 06/24/22 18:04 Range/Units Influenza Type A (RT-PCR) Not Detected Not Detecte Influenza Type B (RT-PCR) Not Detected Not Detecte SARS-CoV-2 RNA (RT-PCR) Not Detected Not Detecte My Orders Orders - ERICA SHAH APRN Covid 19 Inhouse Test (06/24/22 18:02) Influenza A And B By Pcr (06/24/22 18:02) Vital Signs/I&O 06/24/22 17:48 Temp 36.8 Pulse 69 Resp 17 B/P (MAP) 154/83 (106) Pulse Ox 97 O2 Delivery Room Air Capillary Refill : Less Than 3 Seconds Blood Pressure Mean: 106 Departure Impression Primary Impression: Flu-like symptoms Disposition: 01 HOME, SELF-CARE Condition: Stable Departure-Patient Inst. Decision time for Depature: 18:51 Referrals: JOLANTA MCNALLY MD (PCP/Family) Primary Care Physician Patient Instructions: Viral Syndrome (DC) Add. Discharge Instructions: Plan: 1. Make sure drinking plenty of fluids to stay hydrated. He can alternate Tylenol and ibuprofen as directed per package for fever and discomfort. If you are having persistent symptoms or worsening symptoms tomorrow I encourage you to be retested for COVID and flu as you may be too early in your course to have a positive result. If you have any new, concerning, worsening symptoms please return to the ER. All discharge instructions reviewed with patient and/or family. Voiced underst anding. ERICA SHAH GLASS TECHNOLOGIST Jun 24, 2022 18:52
[2022-06-24 18:54] VITALS: BP 154/83
== END 2022-06-24 18:54 | disposition home or self-care (01) ==
LOC: EDUNIT# 17:43 → ER 17:44
DX: R05.9 Cough, unspecified (principal); R42 Dizziness and giddiness; E66.9 Obesity, unspecified; Z68.26 Body mass index [BMI] 26.0-26.9, adult; Z20.822 Contact with and (suspected) exposure to COVID-19
CPT/HCPCS: 87636; 99283

== ENCOUNTER 2022-08-07 12:54 | Outpatient (RCR) | payer MEDICARE, MEDICAID ==
[2022-08-03 11:43] LABS: BASOPHILS % (AUTO) 1 % (0-10); EOSINOPHILS # (AUTO) 0.1 10^3/uL (0.0-0.3); EOSINOPHILS % (AUTO) 5 % (0-10); HEMATOCRIT 35 % (35-52); HEMOGLOBIN 11.3 g/dL (11.5-16.0); LYMPHOCYTES # (AUTO) 0.5 10^3/uL (1.0-4.0); LYMPHOCYTES % (AUTO) 26 % (12-44); MEAN CORPUSCULAR HEMOGLOBIN 27 pg (25-34); MEAN CORPUSCULAR HGB CONC 32 g/dL (32-36); MEAN CORPUSCULAR VOLUME 83 fL (80-99); MEAN PLATELET VOLUME 8.9 fL (9.0-12.2); MONOCYTES # (AUTO) 0.2 10^3/uL (0.0-1.0); MONOCYTES % (AUTO) 8 % (0-12); NEUTROPHILS # (AUTO) 1.3 10^3/uL (1.8-7.8); NEUTROPHILS % (AUTO) 60 % (42-75); PLATELET COUNT 172 10^3/uL (130-400); WHITE BLOOD COUNT 2.1 10^3/uL (4.3-11.0)
[2022-08-03 12:07] LABS: ALBUMIN 3.4 GM/DL (3.2-4.5); CALCIUM 8.1 MG/DL (8.5-10.1); CREATININE SERUM 1.09 MG/DL (0.60-1.30); POTASSIUM 3.4 MMOL/L (3.6-5.0); TOTAL PROTEIN 5.5 GM/DL (6.4-8.2)
== END 2022-08-18 | disposition home or self-care (01) ==
LOC: ONC 12:54
PROVIDERS: ATTEND Internal Medicine Hematology & Oncology
DX: Z45.2 Encounter for adjustment and management of vascular access device (principal); C56.9 Malignant neoplasm of unspecified ovary; D50.9 Iron deficiency anemia, unspecified; I25.10 Atherosclerotic heart disease of native coronary artery without angina pectoris; I48.91 Unspecified atrial fibrillation; J44.9 Chronic obstructive pulmonary disease, unspecified; I10 Essential (primary) hypertension; E78.2 Mixed hyperlipidemia; E03.9 Hypothyroidism, unspecified; Z90.710 Acquired absence of both cervix and uterus
CPT/HCPCS: 36591; 80053; 82728; 83540; 83550; 85025; 86304

== ENCOUNTER 2022-09-05 20:27 | Emergency (ER) | payer MEDICARE, MEDICAID ==
[~2022-09-05] VITALS: Ht 170.2 cm; Wt 70.3 kg
[~2022-09-05 20:27] MED LIST changes: +DIPH-1122 PO; -DIPH25CA48 PO
--- NOTE | 2022-09-05 20:52 | ED General ---
General Chief Complaint: General Problems/Pain Stated Complaint: FALL/RIGHT KNEE/HEAD/BACK/CHEST PAIN Source of Information: Patient Exam Limitations: No Limitations History of Present Illness Date Seen by Provider: Sep 05, 2022 Time Seen by Provider: 20:48 Initial Comments Patient is a 76-year-old female who presents the ED for multiple complaints secondary to a fall. Patient fell around 2019 this evening. She states she is tripped over a wire hitting the back of her head on a guitar case as well as hitting her head on the ground. She also landed awkwardly on her right knee and hitting her mid back during the fall. No loss of consciousness. She states she is on Eliquis. History of A-fib. Patient states she has felt dizzy since hitting her head after the fall. Denies of any known bruising besides a small superficial scrape of her right bello hand without much pain or discomfort. Patient able to ambulate with a cane. She reports head pain and some mild dizziness. No vomiting, visual changes, chest pain, abdominal pain, diarrhea, fever. She states her neck and mid back feels tight when she walks as well as midline pain. No bowel or urine incontinence, saddle paresthesia, urinary symptoms, fever. Allergies and Home Medications Allergies Coded Allergies: Penicillins (Verified Allergy, Mild, 01/04/14) Knnuvea-FCS-HxN Reductase Inhibitor (Verified Allergy, Mild, 01/04/14) codeine (Verified Allergy, Mild, 01/04/14) opium tincture (Verified Allergy, Mild, 01/04/14) tramadol (Verified Allergy, Mild, 01/04/14) Patient Home Medication List Home Medication List Reviewed: Yes Atorvastatin Calcium (Atorvastatin Calcium) 10 Mg Tablet, 10 MG PO HS, (Reported) Entered as Reported by: MOHIT RODRIGUEZ on 06/04/20 1438 Bisacodyl (Bisacodyl) 10 Mg Supp.rect, 10 MG RC Q12H PRN for CONSTIPATION-2ND LINE Prescribed by: NORMA OWENS on 01/07/21 1256 Diltiazem HCl (Cartia Xt) 120 Mg Cap.er.24h, 120 MG PO DAILY, (Reported) Entered as Reported by: TANG MATHIAS on 09/22/21 1513 Ferrous Sulfate (Ferosul) 325 Mg Tablet, 325 MG PO DAILY, (Reported) Entered as Reported by: TANG MATHIAS on 09/22/211512 Fluticasone Propionate (Flovent Hfa 110 mcg) 1 Ea Aero, 2 EA IH BID, (Reported) Entered as Reported by: MOHIT RODRIGUEZ on 06/04/20 143 Hydroxyzine HCl (Hydroxyzine HCl) 25 Mg Tablet, 25 MG PO BID, (Reported) Entered as Reported by: MOHIT RODRIGUEZ on 06/04/20 143 Levothyroxine Sodium (Levothyroxine Sodium) 125 Mcg Tablet, 125 MCG PO DAILY, (Reported) Entered as Reported by: SHAWN ROLLE on 08/21/15 0856 Metoprolol Succinate (Metoprolol Succinate) 200 Mg Tab.er.24h, 200 MG PO DAILY, (Reported) Entered as Reported by: MOHIT RODRIGUEZ on 06/04/20 143 Montelukast Sodium (Montelukast Sodium) 10 Mg Tablet, 10 MG PO DAILY, (Reported) Entered as Reported by: MOHIT RODRIGUEZ on 06/04/20 143 Olaparib (Lynparza) 100 Mg Tablet, 100 MG PO BID, (Reported) Entered as Reported by: TANG MATHIAS on 09/22/211512 Ondansetron HCl (Ondansetron HCl) 8 Mg Tablet, 8 MG PO DAILY, (Reported) Entered as Reported by: TANG MATHIAS on 09/22/211512 Pantoprazole Sodium (Pantoprazole Sodium) 40 Mg Tablet.dr, 40 MG PO DAILY, (Reported) Entered as Reported by: TANG MATHIAS on 09/22/211512 Prednisone (Prednisone) 10 Mg Tab.ds.pk, 10 MG PO PRN, (Reported) Entered as Reported by: TANG MATHIAS on 09/22/211512 Prochlorperazine Maleate (Prochlorperazine Maleate) 10 Mg Tablet, 10 MG PO TID, (Reported) Entered as Reported by: TANG MATHIAS on 09/22/211512 Trazodone HCl (Trazodone HCl) 150 Mg Tablet, 150 MG PO HS, (Reported) Entered as Reported by: TANG MATHIAS on 09/22/211512 Review of Systems Review of Systems Constitutional: No chills, No diaphoresis, No malaise, No weakness EENTM: No ear pain, No blurred vision, No double vision, No mouth pain, No mouth swelling Respiratory: No cough, No dyspnea on exertion Cardiovascular: No chest pain Gastrointestinal: No abdominal pain, No diarrhea, No nausea, No vomiting Genitourinary: No decreased output, No discharge Musculoskeletal: back pain, joint pain, muscle pain Skin: No change in color, No change in hair/nails Psychiatric/Neurological: Denies Anxiety, Denies Depressed Hematologic/Lymphatic: Denies Anemia All Other Systems Reviewed Negative Unless Noted: Yes Past Pzupxgj-Acvcjz-Erhzmr Hx Patient Social History Tobacco Use?: No Use of E-Cig and/or Vaping dev: No Substance use?: No Alcohol Use?: No Immunizations Up To Date Tetanus Booster (TDap): Unknown Influenza Vaccine Up-to-Date: No; Not Current First/Initial COVID19 Vaccinat: N/A Second COVID19 Vaccination Yousuf: N/A Third COVID19 Vaccination Date: N/A Seasonal Allergies Seasonal Allergies: Yes Past Medical History Surgeries: Yes (DENTAL;HEMORRHOIDECTOMY;CARDIAC CATHS-NO INTERVENTION;LOOP RECORDER;CATARAC) Abdominal, Cardiac, Eye Surgery, Hysterectomy, Rectal, Tubal Ligation Respiratory: Yes Asthma, Sleep Apnea Currently Using CPAP: No (PATIENT WEARS 02 AT NIGHT (3L/NC) ) Currently Using BIPAP: No Cardiac: Yes ( CHF;'HOLE IN MY HEART"PER PT;CARDIAC CATHS-NO INTERVENTION; LOOP RECORDER;) Atrial Fibrillation, Coronary Artery Disease, High Cholesterol, Hypertension, Irregular Heartbeat, Peripheral Vascular Neurological: Yes Neuropathy 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 Disorders: No 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 Disorders: Denies 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 Sexually Transmitted Disease: No HIV/AIDS: No Genitourinary: Yes (INCONTINENCE) Bladder Infection, UTI-Chronic Gastrointestinal: Yes Gastroesophageal Reflux, Chronic Constipation, Hemorrhoids, Irritable Bowel Musculoskeletal: Yes (CHRONIC NECK, BACK AND KNEE PAIN) Osteoporosis, Arthritis, Fibromyalgia, Chronic Back Pain Endocrine: Yes (HYPOGLYCEMIA; OBESITY) Hypothyroidsim HEENT: Yes (WEARS GLASSES; CATARACT SURGERY) Cataract Hearing Impairment: Hard of Hearing Cancer: Yes Ovarian Did You Recieve Any Treatments: Yes What Type of Treatment Did You: Surgical Intervention Psychosocial: Yes Anxiety Integumentary: No Blood Disorders: Yes (HX ANEMIA) Adverse Reaction/Blood Tranf: No (N/A) Family Medical History Dementia 19 FATHER Drug abuse G8 BROTHER G8 SISTER FH: pancreatic cancer 19 MOTHER ( OF PANCREATIC CA AGE 67) Thyroid disease 19 MOTHER CARDIAC CATHS--LAST ONE 04/12/19--MINIMAL SMALL VESSEL DISEASE, NO INTERVENTION LOOP RECORDER PLACED 12/10/18 FOR CHRONIC ATRIAL FIBRILLATION CAROTID STENOSIS Physical Exam Vital Signs Vital Signs - First Documented 09/05/22 20:33 Temp 36.0 Pulse 97 Resp 20 B/P (MAP) 182/116 (138) Pulse Ox 99 O2 Delivery Room Air Capillary Refill : Height, Weight, BMI Height: 5'7.00" Weight: 235lbs. 11.2oz. 106.806994mf; 26.00 BMI Method:Stated General Appearance: No Apparent Distress, WD/WN Eyes: Bilateral Eye Normal Inspection, Bilateral Eye PERRL, Bilateral Eye EOMI HEENT: PERRL/EOMI, TMs Normal, Normal ENT Inspection, Pharynx Normal, Other (Right-sided temporal occipital head pain. Mild contusion.) Neck: Full Range of Motion, Normal Inspection, Supple, Other (Bilateral cervical paraspinal muscle tenderness. No cervical midline tenderness. Normal active range of motion. No swelling, bruising.) Respiratory: Chest Non Tender, Lungs Clear, Normal Breath Sounds, No Accessory Muscle Use Cardiovascular: No Gallop, No JVD, No Murmur, Irregularly Irregular Gastrointestinal: Normal Bowel Sounds, No Organomegaly, No Pulsatile Mass, Non Tender Back: Normal Inspection, No CVA Tenderness, No Vertebral Tenderness Extremity: Other (Right anterior knee tenderness. Flexion to 70 degrees with full extension. Mild swelling without bruising or redness. 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 Norm as Tested Skin: Normal Color, Warm/Dry Progress/Results/Core Measures Suspected Sepsis SIRS Temperature: Pulse: Respiratory Rate: Laboratory Tests 09/05/22 21:23: White Blood Count 3.2L Blood Pressure / Mean: Laboratory Tests 09/05/22 21:23: Creatinine 1.39H, Platelet Count 183, Total Bilirubin 0.6 Results/Orders Lab Results Laboratory Tests Test 09/05/22 21:23 Range/Units White Blood Count 3.2 L 4.3-11.0 10^3/uL Red Blood Count 4.34 3.80-5.11 10^6/uL Hemoglobin 11.6 11.5-16.0 g/dL Hematocrit 36 35-52 % Mean Corpuscular Volume 83 80-99 fL Mean Corpuscular Hemoglobin 27 25-34 pg Mean Corpuscular Hemoglobin Concent 32 32-36 g/dL Red Cell Distribution Width 13.2 10.0-14.5 % Platelet Count 183 130-400 10^3/uL Mean Platelet Volume 9.2 9.0-12.2 fL Immature Granulocyte % (Auto) 0 % Neutrophils (%) (Auto) 58 42-75 % Lymphocytes (%) (Auto) 26 12-44 % Monocytes (%) (Auto) 12 0-12 % Eosinophils (%) (Auto) 4 0-10 % Basophils (%) (Auto) 1 0-10 % Neutrophils # (Auto) 1.9 1.8-7.8 10^3/uL Lymphocytes # (Auto) 0.8 L 1.0-4.0 10^3/uL Monocytes # (Auto) 0.4 0.0-1.0 10^3/uL Eosinophils # (Auto) 0.1 0.0-0.3 10^3/uL Basophils # (Auto) 0.0 0.0-0.1 10^3/uL Immature Granulocyte # (Auto) 0.0 0.0-0.1 10^3/uL Sodium Level 142 135-145 MMOL/L Potassium Level 3.8 3.6-5.0 MMOL/L Chloride Level 108 H 98-107 MMOL/L Carbon Dioxide Level 25 21-32 MMOL/L Anion Gap 9 5-14 MMOL/L Blood Urea Nitrogen 20 H 7-18 MG/DL Creatinine 1.39 H 0.60-1.30 MG/DL Estimat Glomerular Filtration Rate 40 BUN/Creatinine Ratio 14 Glucose Level 96 70-105 MG/DL Calcium Level 9.2 8.5-10.1 MG/DL Corrected Calcium 9.4 8.5-10.1 MG/DL Total Bilirubin 0.6 0.1-1.0 MG/DL Aspartate Amino Transf (AST/SGOT) 15 5-34 U/L Alanine Aminotransferase (ALT/SGPT) 10 0-55 U/L Alkaline Phosphatase 60 40-136 U/L Total Protein 6.4 6.4-8.2 GM/DL Albumin 3.8 3.2-4.5 GM/DL My Orders Orders - BRIELLE BALES Cbc With Automated Diff (09/05/22 20:40) Comprehensive Metabolic Panel (09/05/22 20:40) Ekg Tracing (09/05/22 20:40) Knee, Right, 3 Views (09/05/22 20:40) Ct Head/Cervical Spine Wo (09/05/22 20:40) Ct Thoracic Spine Wo (09/05/22 20:40) Vital Signs/I&O 09/05/22 20:33 Temp 36.0 Pulse 97 Resp 20 B/P (MAP) 182/116 (138) Pulse Ox 99 O2 Delivery Room Air Capillary Refill : Departure Communication (PCP) Patient with mechanical fall. She hit the back of her head, mid to upper back as well as her right knee. She denies loss of consciousness. No vomiting. Neurologically intact. no cervical midline tenderness. Nonactivated trauma. she is on a blood thinner. She does have some tenderness to the thoracic midline and bilateral cervical paraspinal. CT scan of the head cervical spine and thoracic spine was unremarkable. X-ray of the right knee negative. Patient denies any chest pain or shortness of breath. ECG appear to be in A-fib. EKG did show noted A-fib which appears to be chronic. Currently on Cardizem. She states she is on Eliquis but not able to verify this and her history. Lab work was otherwise unremarkable. White blood cell 3.2 with a history leukopenia. History of cancer. Creatinine of 1.39. GFR 40. Slight change but not significant. Tolerating fluids. Denies of any urinary symptoms. Afebrile. Slightly hypertensive but did improve. Refusing thing for pain. Patient able to ambulate with a cane. She feels comfortable to go home at this time. Discussed ice, Tylenol and rest. Continue using cane. Outpatient follow-up with primary care physician for further evaluation as needed. If any worsening symptoms may return back to ED. Impression Primary Impression: Back pain Additional Impression: Knee pain Disposition: 01 HOME, SELF-CARE Condition: Stable Departure-Patient Inst. Decision time for Depature: 22:05 Referrals: JOLANTA MCNALLY MD (PCP/Family) Primary Care Physician Patient Instructions: Knee Pain ED Add. Discharge Instructions: Recommend rest. Ice for swelling and Tylenol for pain. If any worsening symptoms return back to ED. Continue using your cane All discharge instructions reviewed with patient and/or family. Voiced understanding. BRIELLE BALES Sep 05, 2022 20:52
--- NOTE | 2022-09-05 21:23 | Diagnostic Imaging Report ---
CLINICAL INDICATION: Patient is status post fall. Patient with knee pain. EXAM: X-ray of the right knee, 3 views. COMPARISON: X-ray of the right knee dated 12/23/2016. FINDINGS: There is no acute fracture or dislocation. There is no knee effusion. There is interval progression of hypertrophic tricompartmental degenerative spurs. There is moderate to severe medial compartment narrowing again noted. IMPRESSION: There is no acute fracture or dislocation. Dictated by: Dictated on workstation # [id number]
--- NOTE | 2022-09-05 21:27 | Diagnostic Imaging Report ---
Clinical indication: Patient is status post fall and complains of headache, dizziness, chest pain, knee pain and back pain. Exam: Head CT without IV contrast with sagittal and coronal reformations. Axial CT scan of the cervical spine with sagittal and coronal reformations. Auto Exposure Controls were utilized during the CT exam to meet ALARA standards for radiation dose reduction. Comparison: CT scan of the head and cervical spine without contrast dated 01/31/2022. Findings: Head CT: There is no evidence of acute cerebral infarct, intracranial hemorrhage or gross mass effect. The brain parenchymal volume appears appropriate for patient's age. Stable chronic small vessel ischemic disease. There is normal vivar-white matter distinction. There is no significant midline shift or herniation. There is no evidence of hydrocephalus. The basal cisterns are unremarkable. Stable small area of scarring involving the left forehead region. The skull, extracranial soft tissue and orbits are unremarkable. There is mild mucosal thickening involving the left maxillary sinus. Temporal bones show no significant abnormality. Cervical spine CT: There is no interval acute cervical spine fracture or dislocation. There is multilevel cervical spine vertebral body spurs and facet arthropathy. Stable chronic compression deformities involving the inferior endplates of the C6 and C7 vertebra. There is no significant abnormality involving the visualized upper lung fowler. Impression: 1: Stable CT scan of the brain with no evidence of acute intracranial process. There is no skull fracture. 2: There is cervical spine degenerative disease but no acute fracture. Dictated by: Dictated on workstation # [id number]
--- NOTE | 2022-09-05 21:30 | Diagnostic Imaging Report ---
CLINICAL INDICATION: Patient is status post fall with back pain. EXAM: Axial CT scan of the thoracic spine performed without IV contrast. Sagittal and coronal reformatted images were created. Auto Exposure Controls were utilized during the CT exam to meet ALARA standards for radiation dose reduction. COMPARISON: CT scan of the thoracic spine without contrast dated 01/31/2022. FINDINGS: There is no acute thoracic spine fracture or dislocation. There is stable appearance of the thoracic spine vertebra. There are hypertrophic spurs involving the thoracic spine. There is no significant bony central canal or neural foramen narrowing. There is atelectasis involving the posterior aspects of both lungs. IMPRESSION: There is no acute thoracic spine fracture or dislocation. Dictated by: Dictated on workstation # [id number]
[2022-09-05 21:43] LABS: BASOPHILS % (AUTO) 1 % (0-10); EOSINOPHILS # (AUTO) 0.1 10^3/uL (0.0-0.3); EOSINOPHILS % (AUTO) 4 % (0-10); HEMATOCRIT 36 % (35-52); HEMOGLOBIN 11.6 g/dL (11.5-16.0); LYMPHOCYTES # (AUTO) 0.8 10^3/uL (1.0-4.0); LYMPHOCYTES % (AUTO) 26 % (12-44); MEAN CORPUSCULAR HEMOGLOBIN 27 pg (25-34); MEAN CORPUSCULAR HGB CONC 32 g/dL (32-36); MEAN CORPUSCULAR VOLUME 83 fL (80-99); MEAN PLATELET VOLUME 9.2 fL (9.0-12.2); MONOCYTES # (AUTO) 0.4 10^3/uL (0.0-1.0); MONOCYTES % (AUTO) 12 % (0-12); NEUTROPHILS # (AUTO) 1.9 10^3/uL (1.8-7.8); NEUTROPHILS % (AUTO) 58 % (42-75); PLATELET COUNT 183 10^3/uL (130-400); WHITE BLOOD COUNT 3.2 10^3/uL (4.3-11.0)
[2022-09-05 21:47] LABS: ALBUMIN 3.8 GM/DL (3.2-4.5); POTASSIUM 3.8 MMOL/L (3.6-5.0)
[2022-09-05 21:48] LABS: CALCIUM 9.2 MG/DL (8.5-10.1)
[2022-09-05 21:49] LABS: TOTAL PROTEIN 6.4 GM/DL (6.4-8.2)
[2022-09-05 21:51] LABS: BILIRUBIN,TOTAL 0.6 MG/DL (0.1-1.0)
[2022-09-05 21:53] LABS: CREATININE SERUM 1.39 MG/DL (0.60-1.30)
[2022-09-05 22:19] VITALS: BP 176/107
== END 2022-09-05 22:19 | disposition home or self-care (01) ==
LOC: EDUNIT# 20:27 → ER 20:30
DX: S00.83XA Contusion of other part of head, initial encounter (principal); M54.6 Pain in thoracic spine; M25.561 Pain in right knee; M54.2 Cervicalgia; I48.91 Unspecified atrial fibrillation; Z79.01 Long term (current) use of anticoagulants; Z28.310 Unvaccinated for COVID-19; Z79.899 Other long term (current) drug therapy; W01.198A Fall on same level from slipping, tripping and stumbling with subsequent striking against other object, initial encounter
CPT/HCPCS: 36415; 70450; 72125; 72128; 73562; 80053; 85025; 93005

== ENCOUNTER 2022-11-05 15:53 | Outpatient (RCR) | payer MEDICARE, MEDICAID ==
[~2022-11-05 15:53] MED LIST changes: +MONT-47 PO; -MONT10TA21 PO
== END 2022-11-15 | disposition home or self-care (01) ==
LOC: ONC 15:53
PROVIDERS: ATTEND Internal Medicine Hematology & Oncology
DX: C56.9 Malignant neoplasm of unspecified ovary (principal); D50.9 Iron deficiency anemia, unspecified; I25.10 Atherosclerotic heart disease of native coronary artery without angina pectoris; I48.91 Unspecified atrial fibrillation; J44.9 Chronic obstructive pulmonary disease, unspecified; I10 Essential (primary) hypertension; E78.2 Mixed hyperlipidemia; E03.9 Hypothyroidism, unspecified; Z90.710 Acquired absence of both cervix and uterus

== ENCOUNTER 2022-11-17 12:52 | Inpatient (IN) | payer MEDICAID, MEDICARE ==
[~2022-11-17] VITALS: Ht 170 cm; Wt 95.5 kg
--- NOTE | 2022-11-17 15:29 | Diagnostic Imaging Report ---
INDICATION: Fall and syncope. Comparison is made with prior exam of 10/17/2020 FINDINGS: There is cardiomegaly. Lungs are clear. There is no pleural effusion or pneumothorax. The mediastinum is unremarkable. There is right jugular central venous catheter. IMPRESSION: No acute cardiopulmonary abnormality. Cardiomegaly. Dictated by: Dictated on workstation # [id number]
--- NOTE | 2022-11-17 15:35 | Diagnostic Imaging Report ---
EXAMINATION: Pelvis and right hip radiograph EXAM DATE: 11/17/2022 3:24 PM COMPARISON: None available. HISTORY: Right hip pain. TECHNIQUE: Three views FINDINGS: There is an acute mildly displaced fracture of the intertrochanteric right femur. There is mild joint space narrowing and small osteophytes of both hips. The soft tissues are normal. IMPRESSION: 1. Mildly displaced acute fracture of the intertrochanteric right femur. Dictated by: Dictated on workstation # [id number]
[2022-11-17 15:55] LABS: BASOPHILS % (AUTO) 0 % (0-10); EOSINOPHILS # (AUTO) 0.1 10^3/uL (0.0-0.3); EOSINOPHILS % (AUTO) 2 % (0-10); HEMATOCRIT 36 % (35-52); HEMOGLOBIN 11.2 g/dL (11.5-16.0); LYMPHOCYTES # (AUTO) 0.8 10^3/uL (1.0-4.0); LYMPHOCYTES % (AUTO) 19 % (12-44); MEAN CORPUSCULAR HEMOGLOBIN 26 pg (25-34); MEAN CORPUSCULAR HGB CONC 31 g/dL (32-36); MEAN CORPUSCULAR VOLUME 83 fL (80-99); MEAN PLATELET VOLUME 9.8 fL (9.0-12.2); MONOCYTES # (AUTO) 0.4 10^3/uL (0.0-1.0); MONOCYTES % (AUTO) 9 % (0-12); NEUTROPHILS # (AUTO) 2.8 10^3/uL (1.8-7.8); NEUTROPHILS % (AUTO) 70 % (42-75); PLATELET COUNT 177 10^3/uL (130-400)
[2022-11-17 15:57] LABS: INR 1.3 (0.8-1.4)
[2022-11-17] MEDS ORDERED: morphine INJ 10 MG/ML 1ML (SYR OR VIAL) ONE (16:12)
[2022-11-17 16:17] LABS: ALANINE AMINOTRANSFERASE 8 U/L (0-55); ALBUMIN 3.6 GM/DL (3.2-4.5); ALKALINE PHOSPHATASE 61 U/L (40-136); BILIRUBIN,TOTAL 0.5 MG/DL (0.1-1.0); BUN/CREATININE RATIO 23; CALCIUM 8.8 MG/DL (8.5-10.1); CARBON DIOXIDE 23 MMOL/L (21-32); CHLORIDE 107 MMOL/L (98-107); CREATININE SERUM 1.31 MG/DL (0.60-1.30); FREE T4 (FREE THYROXINE) 1.07 NG/DL (0.70-1.48); GFR ESTIMATED 42; GLUCOSE 91 MG/DL (70-105); MAGNESIUM 1.9 MG/DL (1.6-2.4); POTASSIUM 4.6 MMOL/L (3.6-5.0); SODIUM 141 MMOL/L (135-145); TOTAL PROTEIN 6.3 GM/DL (6.4-8.2)
--- NOTE | 2022-11-17 16:32 | Diagnostic Imaging Report ---
PROCEDURE: CT head and CT cervical spine without contrast. TECHNIQUE: Multiple contiguous axial images were obtained through the brain and cervical spine without the use of intravenous contrast. Sagittal and coronal reformations through the cervical spine were then performed. Auto Exposure Controls were utilized during the CT exam to meet ALARA standards for radiation dose reduction. INDICATION: Fall and syncope. Comparison is made with prior CT from 09/05/2022. CT HEAD: FINDINGS: Ventricles and sulci are stable in appearance. Moderate periventricular low attenuation is noted consistent with chronic microvascular ischemia. No sulcal effacement or midline shift is identified. No acute intra-axial or extra-axial hemorrhage is detected. Cisterns are patent. Visualized paranasal sinuses are clear. IMPRESSION: Changes of chronic microvascular ischemia. No acute intracranial process is detected. CT CERVICAL SPINE: FINDINGS: Curvature and alignment of the cervical spine is normal. Multilevel degenerative disc disease is noted with variable disc space narrowing and marginal spurring. Prevertebral tissues are within normal limits. Odontoid is intact. There is multilevel facet arthropathy. IMPRESSION: Cervical spondylosis. No acute bony abnormality is detected. Dictated by: Dictated on workstation # [id number]
--- NOTE | 2022-11-17 16:35 | ED General ---
General Stated Complaint: FALL Source of Information: Patient, Family Exam Limitations: No Limitations History of Present Illness Date Seen by Provider: November 17, 2022 Time Seen by Provider: 13:15 Initial Comments This 77-year-old woman presents to the emergency room with complaint of syncopal episode resulting in a fall and injury to her right hip. She has been experiencing lightheadedness and syncopal episodes recently. Today she had a syncopal episode and fell straight backward. She does have some tenderness to her neck and c-collar was applied. She is currently anticoagulated due to history of atrial fibrillation. She has tenderness of the right hip and external rotation of the right lower extremity. Dr. Victoria is her primary care provider and Dr. Savage is her weigher and mixer. Allergies and Home Medications Allergies Coded Allergies: Penicillins (Verified Allergy, Mild, 01/04/14) [id number] Reductase Inhibitor (Verified Allergy, Mild, 01/04/14) codeine (Verified Allergy, Mild, PT HAS TOLERATED MORPHINE, 11/20/22) opium tincture (Verified Allergy, Mild, PT HAS TOLERATED MORPHINE, 11/20/22) tramadol (Verified Allergy, Mild, PT HAS TOLERATED MORPHINE, 11/20/22) Patient Home Medication List Home Medication List Reviewed: Yes Amlodipine Besylate (Amlodipine Besylate) 10 Mg Tablet, 5 MG PO DAILY, (Reported) Entered as Reported by: JUSTIN HUNTER on 11/18/22 1540 Last Action: Reviewed Atorvastatin Calcium (Atorvastatin Calcium) 10 Mg Tablet, 10 MG PO HS, (Reported) Entered as Reported by: MOHIT RODRIGUEZ on 06/04/20 1438 Last Action: Reviewed Ferrous Sulfate (Ferosul) 325 Mg (65 Mg Iron) Tablet, 325 MG PO DAILY, (Reported) Entered as Reported by: TANG MATHIAS on 09/22/21 1513 Last Action: Reviewed Fluticasone Propionate (Fluticasone Propionate) 50 Mcg/Actuation [place].susp, 1-2 SPRAYS NSEACH DAILY, (Reported) Entered as Reported by: JUSTIN HUNTER on 11/18/22 1540 Last Action: Continued Levothyroxine Sodium (Levothyroxine Sodium) 125 Mcg Tablet, 125 MCG PO DAILY, (Reported) Entered as Reported by: SHAWN ROLLE on 08/21/15 0856 Last Action: Continued Metoprolol Tartrate (Metoprolol Tartrate) 50 Mg Tablet, 50 MG PO BID, (Reported) Entered as Reported by: JUSTIN HUNTER on 11/18/221539 Last Action: Reviewed Montelukast Sodium (Montelukast Sodium) 10 Mg Tablet, 10 MG PO DAILY PRN for ALLERGY SYMPTOMS, (Reported) Entered as Reported by: MOHIT RODRIGUEZ on 06/04/201437 Last Action: Reviewed Pantoprazole Sodium (Pantoprazole Sodium) 40 Mg Tablet.dr, 40 MG PO DAILY, (Reported) Entered as Reported by: TANG MATHIAS on 09/22/211512 Last Action: Reviewed Rivaroxaban (Xarelto) 20 Mg Tablet, 20 MG PO HS, (Reported) Entered as Reported by: JUSTIN HUNTER on 11/18/221539 Last Action: Reviewed Trazodone HCl (Trazodone HCl) 300 Mg Tablet, 300 MG PO HS, (Reported) Entered as Reported by: JUSTIN HUNTER on 11/18/221539 Last Action: Reviewed Discontinued Medications Bisacodyl (Bisacodyl) 10 Mg Supp.rect, 10 MG RC Q12H PRN for CONSTIPATION-2ND LINE Discontinued Reason: No Longer Taking Prescribed by: NORMA OWENS on 01/07/21 1256 Last Action: Discontinued Diltiazem HCl (Cartia Xt) 120 Mg Cap.er.24h, 120 MG PO DAILY, (Reported) Discontinued Reason: No Longer Taking Entered as Reported by: TANG MATHIAS on 09/22/211512 Last Action: Discontinued Fluticasone Propionate (Flovent Hfa 110 mcg) 1 Ea Aero, 2 EA IH BID, (Reported) Discontinued Reason: No Longer Taking Entered as Reported by: MOHIT RODRIGUEZ on 06/04/201437 Last Action: Discontinued Hydroxyzine HCl (Hydroxyzine HCl) 25 Mg Tablet, 25 MG PO BID, (Reported) Discontinued Reason: No Longer Taking Entered as Reported by: MOHIT RODRIGUEZ on 06/04/201437 Last Action: Discontinued Metoprolol Succinate (Metoprolol Succinate) 200 Mg Tab.er.24h, 200 MG PO DAILY, (Reported) Discontinued Reason: No Longer Taking Entered as Reported by: MOHIT RODRIGUEZ on 06/04/20 1438 Last Action: Discontinued Olaparib (Lynparza) 100 Mg Tablet, 100 MG PO BID, (Reported) Discontinued Reason: No Longer Taking Entered as Reported by: TANG MATHIAS on 09/22/211512 Last Action: Discontinued Ondansetron HCl (Ondansetron HCl) 8 Mg Tablet, 8 MG PO DAILY, (Reported) Discontinued Reason: No Longer Taking Entered as Reported by: TANG MATHIAS on 09/22/211512 Last Action: Discontinued Prednisone (Prednisone) 10 Mg Tab.ds.pk, 10 MG PO PRN, (Reported) Discontinued Reason: No Longer Taking Entered as Reported by: TANG MATHIAS on 09/22/211512 Last Action: Discontinued Prochlorperazine Maleate (Prochlorperazine Maleate) 10 Mg Tablet, 10 MG PO TID, (Reported) Discontinued Reason: No Longer Taking Entered as Reported by: TANG MATHIAS on 09/22/211512 Last Action: Discontinued Trazodone HCl (Trazodone HCl) 150 Mg Tablet, 150 MG PO HS, (Reported) Discontinued Reason: No Longer Taking Entered as Reported by: TANG MATHIAS on 09/22/211512 Last Action: Discontinued Review of Systems Review of Systems Constitutional: no symptoms reported EENTM: no symptoms reported Respiratory: no symptoms reported Cardiovascular: see HPI Gastrointestinal: no symptoms reported Genitourinary: no symptoms reported : No Musculoskeletal: see HPI Skin: no symptoms reported Psychiatric/Neurological: No Symptoms Reported Hematologic/Lymphatic: No Symptoms Reported Immunological/Allergic: no symptoms reported Past Pxjfqsl-Ibtmef-Tnwyvq Hx Patient Social History Tobacco Use?: No Use of E-Cig and/or Vaping dev: No Substance use?: No Alcohol Use?: No Immunizations Up To Date Tetanus Booster (TDap): Unknown First/Initial COVID19 Vaccinat: N/A Second COVID19 Vaccination Yousuf: N/A Third COVID19 Vaccination Date: N/A Seasonal Allergies Seasonal Allergies: Yes Past Medical History Surgeries: Yes (DENTAL;HEMORRHOIDECTOMY;CARDIAC CATHS-NO INTERVENTION;LOOP RECORDER;CATARAC) Abdominal, Cardiac, Eye Surgery, Hysterectomy, Rectal, Tubal Ligation Respiratory: Yes Asthma, Sleep Apnea Currently Using CPAP: No (PATIENT WEARS 02 AT NIGHT (3L/NC) ) Currently Using BIPAP: No Cardiac: Yes ( CHF;'HOLE IN MY HEART"PER PT;CARDIAC CATHS-NO INTERVENTION; LOOP RECORDER;) Atrial Fibrillation, Coronary Artery Disease, High Cholesterol, Hypertension, Irregular Heartbeat, Peripheral Vascular Neurological: Yes Neuropathy 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 Disorders: No 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 Disorders: Denies 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 History: Hysterectomy Sexually Transmitted Disease: No HIV/AIDS: No Genitourinary: Yes (INCONTINENCE) Bladder Infection, UTI-Chronic Gastrointestinal: Yes Gastroesophageal Reflux, Chronic Constipation, Hemorrhoids, Irritable Bowel Musculoskeletal: Yes (CHRONIC NECK, BACK AND KNEE PAIN) Osteoporosis, Arthritis, Fibromyalgia, Chronic Back Pain Endocrine: Yes (HYPOGLYCEMIA; OBESITY) Hypothyroidsim HEENT: Yes (WEARS GLASSES; CATARACT SURGERY) Cataract Hearing Impairment: Hard of Hearing Cancer: Yes Ovarian Did You Recieve Any Treatments: Yes What Type of Treatment Did You: Surgical Intervention Psychosocial: Yes Anxiety Integumentary: No Blood Disorders: Yes (HX ANEMIA) Adverse Reaction/Blood Tranf: No (N/A) Family Medical History Dementia 19 FATHER Drug abuse G8 BROTHER G8 SISTER FH: pancreatic cancer 19 MOTHER ( OF PANCREATIC CA AGE 67) Thyroid disease 19 MOTHER CARDIAC CATHS--LAST ONE 04/12/19--MINIMAL SMALL VESSEL DISEASE, NO INTERVENTION LOOP RECORDER PLACED 12/10/18 FOR CHRONIC ATRIAL FIBRILLATION CAROTID STENOSIS Physical Exam Vital Signs Capillary Refill : Height, Weight, BMI Height: 5'7.00" Weight: 235lbs. 11.2oz. 106.057678fp; 24.00 BMI Method:Stated General Appearance: WD/WN, Mild Distress HEENT: PERRL/EOMI, Normal ENT Inspection Neck: Normal Inspection, Tender Midline (Posteriorly) Respiratory: Lungs Clear, Normal Breath Sounds, No Accessory Muscle Use, No Respiratory Distress Cardiovascular: Regular Rate, Rhythm, No Edema, No Murmur Gastrointestinal: Normal Bowel Sounds, Non Tender, Soft Extremity: No Pedal Edema, Other (Tenderness over the right hip. External rotation of the right lower extremity. Distal exam normal with sensation, movement, and pulses intact in the right foot) Neurologic/Psychiatric: Alert, Oriented x3, No Motor/Sensory Deficits, Normal Mood/Affect Skin: Normal Color, Warm/Dry Progress/Results/Core Measures Suspected Sepsis SIRS Temperature: Pulse: Respiratory Rate: Laboratory Tests 11/17/22 13:05: White Blood Count 4.0L Blood Pressure / Mean: Laboratory Tests 11/17/22 13:05: Creatinine 1.31H, INR Comment 1.3, Platelet Count 177, Total Bilirubin 0.5 Results/Orders Lab Results Laboratory Tests Test 11/17/22 13:05 Range/Units White Blood Count 4.0 L 4.3-11.0 10^3/uL Red Blood Count 4.32 3.80-5.11 10^6/uL Hemoglobin 11.2 L 11.5-16.0 g/dL Hematocrit 36 35-52 % Mean Corpuscular Volume 83 80-99 fL Mean Corpuscular Hemoglobin 26 25-34 pg Mean Corpuscular Hemoglobin Concent 31 L 32-36 g/dL Red Cell Distribution Width 13.6 10.0-14.5 % Platelet Count 177 130-400 10^3/uL Mean Platelet Volume 9.8 9.0-12.2 fL Immature Granulocyte % (Auto) 1 % Neutrophils (%) (Auto) 70 42-75 % Lymphocytes (%) (Auto) 19 12-44 % Monocytes (%) (Auto) 9 0-12 % Eosinophils (%) (Auto) 2 0-10 % Basophils (%) (Auto) 0 0-10 % Neutrophils # (Auto) 2.8 1.8-7.8 10^3/uL Lymphocytes # (Auto) 0.8 L 1.0-4.0 10^3/uL Monocytes # (Auto) 0.4 0.0-1.0 10^3/uL Eosinophils # (Auto) 0.1 0.0-0.3 10^3/uL Basophils # (Auto) 0.0 0.0-0.1 10^3/uL Immature Granulocyte # (Auto) 0.0 0.0-0.1 10^3/uL Prothrombin Time 17.0 H 12.2-14.7 SEC INR Comment 1.3 0.8-1.4 Activated Partial Thromboplast Time 34 24-35 SEC Sodium Level 141 135-145 MMOL/L Potassium Level 4.6 3.6-5.0 MMOL/L Chloride Level 107 98-107 MMOL/L Carbon Dioxide Level 23 21-32 MMOL/L Anion Gap 11 5-14 MMOL/L Blood Urea Nitrogen 30 H 7-18 MG/DL Creatinine 1.31 H 0.60-1.30 MG/DL Estimat Glomerular Filtration Rate 42 BUN/Creatinine Ratio 23 Glucose Level 91 70-105 MG/DL Calcium Level 8.8 8.5-10.1 MG/DL Corrected Calcium 9.1 8.5-10.1 MG/DL Magnesium Level 1.9 1.6-2.4 MG/DL Total Bilirubin 0.5 0.1-1.0 MG/DL Aspartate Amino Transf (AST/SGOT) 17 5-34 U/L Alanine Aminotransferase (ALT/SGPT) 8 0-55 U/L Alkaline Phosphatase 61 40-136 U/L Troponin I < 0.028 <0.028 NG/ML B-Type Natriuretic Peptide 254.7 H <100.0 PG/ML Total Protein 6.3 L 6.4-8.2 GM/DL Albumin 3.6 3.2-4.5 GM/DL Thyroid Stimulating Hormone (TSH) 3.41 0.35-4.94 UIU/ML Free Thyroxine 1.07 0.70-1.48 NG/DL My Orders Orders - [place] JONES MD Chest 1 View, Ap/Pa Only (11/17/22 ) Pelvis With Right Hip 2-3views (11/17/22 ) Cbc With Automated Diff (11/17/22 13:05) Protime With Inr (11/17/22 13:05) Partial Thromboplastin Time (11/17/22 13:05) Comprehensive Metabolic Panel (11/17/22 13:20) Magnesium (11/17/22 13:20) Free T4 (Free Thyroxine) (11/17/22 13:20) Troponin I H[place] (11/17/22 13:20) Thyroid Stimulating Hormone (11/17/22 13:20) Bnp [place] (11/17/22 13:20) Ct Head/Cervical Spine Wo (11/17/22 ) Morphine Injection (Morphine Injection (11/17/22 16:12) Vital Signs/I&O Capillary Refill : Progress Note : Progress Note Patient was found to have a right intertrochanteric hip fracture. Labs were reviewed including CBC, BMP, magnesium, and troponin. These were grossly unremarkable except for increase in creatinine suggestive of renal impairment. CT of the head and cervical spine was obtained and no acute injuries were identified. Pain was treated with morphine. Dr. RAMOS was consulted at [address] Savage was consulted at [address] Irene, hospitalist, was contacted at 1603. Care of this patient was quite complicated due to complete loss of network services during her ER stay including access to EMR and imaging applications. I discussed CODE STATUS with the patient and she elects to be full code. ECG Initial ECG Impression Date: November 17, 2022 Initial ECG Impression Time: 14:56 Initial ECG Rate: 73 Initial ECG Rhythm: A Fib/Flutter Comment Atrial fibrillation with no ST elevation or depression. Right axis deviation. Intraventricular conduction delay. Diagnostic Imaging Diagonstic Imaging: Xray Plain Films/CT/US/NM/MRI: pelvis, hip Comments X-ray of the right hip and pelvis was viewed by me. Radiologist report was not available. By my interpretation there was a mildly displaced right intertrochanteric hip fracture.. Pelvis appeared intact. Diagonstic Imaging: Xray Plain Films/CT/US/NM/MRI: chest Comments Chest x-ray viewed by me. Report not yet available. No acute abnormality appreciated by my interpretation. Diagonstic Imaging: CT Plain Films/CT/US/NM/MRI: c-spine, head Comments CT head and cervical spine discussed with Dr. Estrada, radiologist. No acute injuries were identified. C-collar was cleared. Departure Impression Primary Impression: Closed intertrochanteric fracture of right hip Qualified Codes: S72.141A - Displaced intertrochanteric fracture of right femur, initial encounter for closed fracture Additional Impressions: Syncope Qualified Codes: R55 - Syncope and collapse Fall on same level Qualified Codes: W18.30XA - Fall on same level, unspecified, initial encounter Anticoagulated Disposition: ADMITTED INPATIENT Condition: Stable Admissions Decision to Admit Reason: Admit from ER (General) Decision to Admit/Date: November 22, 2022 Time/Decision to Admit Time: 15:53 Departure-Patient Inst. Referrals: JOLANTA VICTORIA MD (PCP/Family) Primary Care Physician Copy Copies To 1: JOLANTA VICTORIA MD Copies To 2: ANSON SAVAGE MD, JOSHUA T MD November 17, 2022 16:35
[2022-11-17] MEDS ORDERED: morphine INJ 4 MG/ML 1 ML (VIAL/SYRINGE) IVP ONE (16:45)
--- NOTE | 2022-11-17 17:26 | CONSULTATION REPORT ---
DATE OF SERVICE: 11/17/2022 REASON FOR CONSULTATION: Right intertrochanteric femur fracture. HISTORY OF PRESENT ILLNESS: The patient is a 77-year-old female who reports that she blacked out today and fell. She had right hip pain, presented to the Emergency Department where she was found to have a right intertrochanteric femur fracture. She does have a history of atrial fibrillation. She reports she has had one other episode at least of blacking out. She [ ] has a loop recorder. She denies paresthesias. PHYSICAL EXAMINATION: EXTREMITIES: Her right lower extremity demonstrates intact dorsiflexion and plantarflexion of the toes. Pulses are symmetric. She has intact sensation to light touch throughout. Radiographs reveal a minimally displaced right intertrochanteric femur fracture. PLAN: Right hip intramedullary nail. I discussed risks, benefits, options, ramifications and recovery with the patient and her . They understand and wish to proceed. Job ID: [id number] DocumentID: [id number] Dictated Date: 11/17/2022 16:24:17 Global Marketing Operations Manager Date: 11/17/2022 17:24:00 Dictated By: JUAN RAMOS MD
[2022-11-17 17:31] VITALS: BP 192/87
--- OUTSIDE RECORDS SUMMARY | 2022-11-17 17:36 | XMS REPORT | Clinical Summary ---
Author Author [facility] Organization [facility] Address Unknown Phone Unavailable Care Team Providers Care Daycare Teacher Name Role Phone Tisha Brush MD PCP Source Comments Some departments are not documenting in the electronic medical record. If you d o not see the information that you expected, contact Release of Information in [facility] Information Management department at [phone] for further assistan ce in locating additional records.[facility] Allergies Comments Active Allergy Reactions Severity Noted Date Codeine HALLUCINATION High 08/13/2020 S Chlorpheniramine-Acetamin SHORTNESS OF Medium 07/20 ophen BREATH Opium HALLUCINATION High 08/13/2020 S high fevers Penicillins UNKNOWN Low 08/13/2020 Medications End Date Status Medication Sig Dispensed Refills Start Date Active atorvastatin (LIPITOR) 10 Take 10 mg by 0 mg tablet mouth at bedtime daily. Active traZODone (DESYREL) 50 mg Take 50 mg by 0 tablet mouth at bedtime as needed for Sleep. Active traMADoL (ULTRAM) 50 mg Take 1 tablet 0 tablet by mouth 0 every 8 hours as needed. Active levothyroxine (SYNTHROID) Take 125 mcg 0 04/19 125 mcg tablet by mouth 0 daily 30 minutes before breakfast. Active apixaban (ELIQUIS) 5 mg Take 5 mg by 0 tablet mouth twice daily. Active fluticasone propionate Inhale 2 0 (FLOVENT HFA) 110 puffs by mcg/actuation inhaler mouth into the lungs twice daily. Active montelukast (SINGULAIR) Take 10 mg by 0 10 mg tablet mouth at bedtime daily. Active VENTOLIN HFA 90 Inhale 2 0 mcg/actuation inhaler puffs by mouth into the lungs every 6 hours as needed for Wheezing or Shortness of Breath. Shake well before use. Active LORazepam (ATIVAN) 0.5 mg Take 1 tablet 0 tablet by mouth every 8 hours as needed for Nausea (anxiety). Active fluticasone propionate Apply 2 0 (FLONASE) 50 sprays to mcg/actuation nasal each nostril spray, suspension as directed at bedtime daily. Shake bottle gently before using. Active ondansetron (ZOFRAN) 8 mg Take one 6 tablet 0 tablet tablet by 1 mouth every 6 hours as needed for Nausea or Vomiting. Active acetaminophen (TYLENOL) Take 0 500 mg tablet 500-1,000 mg by mouth every 8 hours as needed for Pain. Max of 4,000 mg of acetaminophen in 24 hours. Active amLODIPine (NORVASC) 10 Take one 90 tablet 0 /202 mg tablet tablet by 1 mouth daily. Active oxyCODONE (ROXICODONE) 5 Take one-half 20 tablet 0 mg tablet tablet to one 1 tablet by mouth every 4 hours as needed Active senna/docusate Take one 30 tablet 0 (SENOKOT-S) 8.6/50 mg tablet by 1 tablet mouth twice daily. Active hydrALAZINE (APRESOLINE) Take one 120 tablet 1 0 25 mg tablet tablet by 1 mouth three times daily. Active metoprolol XL (TOPROL XL) Take one 90 tablet 1 100 mg extended release tablet by 1 tablet mouth daily. Active Problems Problem Noted Date S/P hysterectomy 09/05/2020 Malignant neoplasm of ovary 08/18/2020 Surgical History Surgery Date Site/Laterality Comments TUBAL LIGATION HX HEART CATHETERIZATION 07/19/2018 - 07/18/2019 HYSTERECTOMY 09/05/2020 Abdomen/Bilater TOTAL ABDOMINA L HYSTERECTOMY AND BILATERAL al SALPINGO-OOPHORECTOMY WITH OMENTECTOMY AND RADICAL RESECTION FOR DEBULKING, bowel resectio n performed by Cassidy Nielson MD at [facility] OR COLECTOMY 09/05/2020 N/A Sigmoid colecto my performed by Henrique Florentino MD at [facility] OR Medical History Medical History Date Comments Cancer of colon (HCC) Ovarian cancer (HCC) Arthritis Back pain Hearing reduced Heart disease Hypertension On supplemental oxygen therapy Acquired hypothyroidism Vision decreased Arrhythmia Afib Carotid artery disease (HCC) Migraines Triggered by stress SOBOE (shortness of breath on exertion) COPD (chronic obstructive pulmonary 3L O2 per NC disease) (HCC) JANELLE (obstructive sleep apnea) 3L O2 per NC Congestive heart disease (HCC) 2017 GERD (gastroesophageal reflux disease) Tx's w "mint s or Jakob's" Hyperlipidemia Renal insufficiency Psychiatric illness Anxiety Difficulty swallowing Neuropathy Feet & hands Does use hearing aid Social History Date Tobacco Use Types Packs/Day Years Used Quit: 09/06/1997 Smoking Tobacco: Former Cigarettes Smokeless Tobacco: Former Comments Alcohol Use Standard Drinks/Week Yes 1 (1 standard drink = 0.6 o z pure alcohol) Alcohol Habits Answer Date Recorded How often do you have a drink containing alcohol? 2-4 time s a month 08/13/2020 How many drinks containing alcohol do you have on 1 or 2 08/13/2020 a typical day when you are drinking? How often do you have six or more drinks on one Not asked occasion? 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 Obstetrics History Para Term AB IAB SAB Ectopic Multiple Living Live B irths 6 8 Date GA Total Labor Labor/2nd/3rd Weight Sex Delivery Anes PTL Dianna A1 A5 Name Clin Outcome Para Para Para Para Para Para Last Filed Vital Signs Reading Time Taken Comments Vital Sign 126/69 10/01/2020 3:47 PM CDT Blood Pressure 73 10/01/2020 3:47 PM CDT Pulse 36.1 C (97 F) 10/01/2020 3:47 PM CDT Temperature - - Respiratory Rate 100% 10/01/2020 3:47 PM CDT Oxygen Saturation - - Inhaled Oxygen Concentration 97.2 kg (214 lb 3.2 oz) 10/01/2020 3:47 PM CDT Weight 170.2 cm (5' 7") 10/01/2020 3:47 PM CDT Height 33.55 10/01/2020 3:47 PM CDT Body Mass Index Plan of Treatment Health Maintenance Due Date Last Done Comments MEDICARE ANNUAL WELLNESS 1945 VISIT COVID-19 VACCINE (#1) 05/13/1946 HEPATITIS C SCREENING 11/11/1965 PHYSICAL (COMPREHENSIVE) 11/11/1965 EXAM BREAST CANCER SCREENING 1987 COLORECTAL CANCER 11/11/1992 SCREENING SHINGLES RECOMBINANT 11/11/1997 VACCINE (1 of 2) OSTEOPOROSIS 11/11/2012 SCREENING/MONITORING PNEUMOCOCCAL VACCINE 65+ 11/11/2012 YRS (1 - PCV) ADVANCED CARE PLANNING 07/19/2022 DISCUSSION AND DOCUMENTATION DEPRESSION SCREENING 07/19/2022 10/01/2020 INFLUENZA VACCINE (Season 04/18/2023 Ended) DTAP/TDAP VACCINES (2 - 10/24/2027 10/23/2017 Td or Tdap) Goals Goal Patient Associated Recent Progress Patient-Stat Aut hor Goal Type Problems ed? GOAL General No Aleena Keller, RN Note: Be independent Medical Devices Device Identifier Shelf Expiration Date Model / Serial / L ot Implanted Type Area Manufactur er REVEAL LINQ [id number] / [id number] / Loop Recorder Loop [employer] Recorder CARDIAC RHYTHM MNGMT Results Not on filefrom Last 3 Months Insurance Type Payer Benefit Subscriber ID Effective Phone Address Plan / Dates Group Medicare HUMANA MEDICARE HUMANA [id number] 2020-P [phone] [address] [address] MED[place], [place] [address] Advance Directives Date Inactivated Comments Code Status Date Activated 09/11/2020 2:57 PM Full Code 09/05/2020 10:00 PM Comments Question Answer Provider has No, discussion not necessar y based on Dx discussed Code Status w/Patient or Family? Care Teams Start Date End Date Daycare Teacher Relationship Specialty 08/09/20 Tisha Brush MD PCP - General Clinical [address] Pathology [place], [place] [address]
--- NOTE | 2022-11-17 17:52 | Consultation-Cardiology ---
HPI-Cardiology Cardiology Consultation Date of Consultation 11/17/22 Date of Admission Time Seen by Provider: 17:46 Indication: Syncope HPI 77-year-old lady with history of coronary artery disease, atrial fibrillation. Had a loop monitor, battery was depleted. She was doing well until about a week ago when she started to have multiple blacking out episodes. Today she felt lightheaded and she was trying to walk in her kitchen when she passed out and fell resulted in right-sided hip fracture. Patient was admitted. Laying down in bed, has been having chest pain on and off. No palpitation. Home Medications & Allergies Allergies: Coded Allergies: Penicillins (Verified Allergy, Mild, 01/04/14) Dpxzltw-OTA-EmO Reductase Inhibitor (Verified Allergy, Mild, 01/04/14) codeine (Verified Allergy, Mild, 01/04/14) opium tincture (Verified Allergy, Mild, 01/04/14) tramadol (Verified Allergy, Mild, 01/04/14) Home Medication List Reviewed: Yes BIN-Nzbdbi-Jehmky Hx Patient Social History Employed/Student: retired Smoking Status: Former Smoker Former smoker/When Quit: Jul 19, 1995 Type Used: Cigarettes 2nd Hand Smoke Exposure: No Recent Hopitalizations: No Have you traveled recently?: No Alcohol Use?: Yes Immunizations Up To Date Tetanus Booster (TDap): Unknown Date of Pneumonia Vaccine: Jul 18, 2015 Date of Influenza Vaccine: Jul 18, 2015 Past Medical History Discussed below Family Medical History Significant Family History: No Pertinent Family Hx Family History: Dementia 19 FATHER Drug abuse G8 BROTHER G8 SISTER FH: pancreatic cancer 19 MOTHER ( OF PANCREATIC CA AGE 67) Thyroid disease 19 MOTHER Review of Systems-General Review of Systems Constitutional: no symptoms reported, see HPI, weakness EENTM: see HPI, no symptoms reported Respiratory: no symptoms reported, see HPI Cardiovascular: see HPI, chest pain; No edema, No Hx of Intervention, No palpitations; syncope; No vascular heart diseas, No other Gastrointestinal: no symptoms reported, see HPI Genitourinary: no symptoms reported, see HPI Musculoskeletal: no symptoms reported, see HPI Skin: no symptoms reported, see HPI Psychiatric/Neurological: No Symptoms Reported, See HPI Reviewed Test Results Reviewed Test Results Lab Laboratory Tests Test 11/17/22 13:05 Range/Units White Blood Count 4.0 L 4.3-11.0 10^3/uL Red Blood Count 4.32 3.80-5.11 10^6/uL Hemoglobin 11.2 L 11.5-16.0 g/dL Hematocrit 36 35-52 % Mean Corpuscular Volume 83 80-99 fL Mean Corpuscular Hemoglobin 26 25-34 pg Mean Corpuscular Hemoglobin Concent 31 L 32-36 g/dL Red Cell Distribution Width 13.6 10.0-14.5 % Platelet Count 177 130-400 10^3/uL Mean Platelet Volume 9.8 9.0-12.2 fL Immature Granulocyte % (Auto) 1 % Neutrophils (%) (Auto) 70 42-75 % Lymphocytes (%) (Auto) 19 12-44 % Monocytes (%) (Auto) 9 0-12 % Eosinophils (%) (Auto) 2 0-10 % Basophils (%) (Auto) 0 0-10 % Neutrophils # (Auto) 2.8 1.8-7.8 10^3/uL Lymphocytes # (Auto) 0.8 L 1.0-4.0 10^3/uL Monocytes # (Auto) 0.4 0.0-1.0 10^3/uL Eosinophils # (Auto) 0.1 0.0-0.3 10^3/uL Basophils # (Auto) 0.0 0.0-0.1 10^3/uL Immature Granulocyte # (Auto) 0.0 0.0-0.1 10^3/uL Prothrombin Time 17.0 H 12.2-14.7 SEC INR Comment 1.3 0.8-1.4 Activated Partial Thromboplast Time 34 24-35 SEC Sodium Level 141 135-145 MMOL/L Potassium Level 4.6 3.6-5.0 MMOL/L Chloride Level 107 98-107 MMOL/L Carbon Dioxide Level 23 21-32 MMOL/L Anion Gap 11 5-14 MMOL/L Blood Urea Nitrogen 30 H 7-18 MG/DL Creatinine 1.31 H 0.60-1.30 MG/DL Estimat Glomerular Filtration Rate 42 BUN/Creatinine Ratio 23 Glucose Level 91 70-105 MG/DL Calcium Level 8.8 8.5-10.1 MG/DL Corrected Calcium 9.1 8.5-10.1 MG/DL Magnesium Level 1.9 1.6-2.4 MG/DL Total Bilirubin 0.5 0.1-1.0 MG/DL Aspartate Amino Transf (AST/SGOT) 17 5-34 U/L Alanine Aminotransferase (ALT/SGPT) 8 0-55 U/L Alkaline Phosphatase 61 40-136 U/L Troponin I < 0.028 <0.028 NG/ML B-Type Natriuretic Peptide 254.7 H <100.0 PG/ML Total Protein 6.3 L 6.4-8.2 GM/DL Albumin 3.6 3.2-4.5 GM/DL Thyroid Stimulating Hormone (TSH) 3.41 0.35-4.94 UIU/ML Free Thyroxine 1.07 0.70-1.48 NG/DL Physical Exam Physical Exam Vital Signs Vital Signs - First Documented 11/17/22 12:54 Temp 36.0 Pulse 67 Resp 20 B/P (MAP) 166/113 (130) Pulse Ox 96 O2 Delivery Room Air Capillary Refill : Height, Weight, BMI Height: 5'7.00" Weight: 235lbs. 11.2oz. 106.637330lk; 24.00 BMI Method:Stated General Appearance: No Apparent Distress, WD/WN Eyes: Bilateral Eye Normal Inspection, Bilateral Eye PERRL, Bilateral Eye EOMI HEENT: PERRL/EOMI, TMs Normal, Normal ENT Inspection, Pharynx Normal, Moist Mucous Membranes Neck: Full Range of Motion, Normal Inspection, Non Tender, Supple, Carotid Bruit Respiratory: Chest Non Tender, Normal Breath Sounds, No Accessory Muscle Use, No Respiratory Distress Cardiovascular: No Edema, No Gallop, No JVD, No Murmur, Normal Peripheral Pulses, Systolic Murmur, Irregularly Irregular Gastrointestinal: Normal Bowel Sounds, No Organomegaly, No Pulsatile Mass, Non Tender, Soft Back: Normal Inspection, No CVA Tenderness, No Vertebral Tenderness Extremity: Normal Capillary Refill, Normal Inspection, No Pedal Edema, Other (Right hip fracture) Neurologic/Psychiatric: Alert, Oriented x3, No Motor/Sensory Deficits, Normal Mood/Affect Skin: Normal Color, Warm/Dry Lymphatic: No Adenopathy A/P-Cardiology Admission Diagnosis Syncope Atrial fibrillation Hip fracture Chest pain Assessment/Plan Syncope, unknown etiology, most probably labile hypertension. Resulted in hip fracture Will monitor on telemetry Right-sided hip fracture scheduled for hip surgery tomorrow Chest pain, nonspecific etiology, has been having chronic chest pain on and off. Continue to monitor Permanent atrial fibrillation with variable response, had an episode of aberrant conduction, seen by Dr. Emerson, had a loop recorder implanted in November 2018, having multiple episodes of atrial fibrillation and pauses. The loop monitor battery was depleted few months ago. Currently in atrial fibrillation, will place on telemetry. CLN1AY1-MNLd score is 3, yearly risk of stroke without oral anticoagulation is 3.2 percent. Patient is maintained on Xarelto. Had previous trauma to the face secondary to falling, Hold Xarelto for now. Episodes of dizziness with exertion, reporting worsening symptoms recently, has history of atrial fibrillation and questionable sinus node dysfunction Continue to monitor Coronary artery disease, cardiac catheterization was done in August 2015 showing mild ectasia in the proximal LAD with slow flow in the proximal LAD at otherwise small vessel disease no significant obstructive disease. Had another cardiac catheterization done in March 2019 after having an abnormal stress test showing coronary ectasia, no change compared to 2015. Currently EKG did not show any acute abnormality on November 17, 2022. Continue to monitor 2D Echo done June 2021 showing EF 55-65%, mildly dilated left atrium, mild AR, PA 40mmHg. I will repeat 2D echo Mild bilateral nonobstructive carotid artery stenosis, continue to monitor COPD, obstructive sleep apnea, seen by Dr. Boston in the past. Managed by primary care physician Hypertension, poorly controlled Restart home medication monitor blood pressure Hyperlipidemia, had lab work done with mild lab. I will obtain copy of the results Ovarian cancer, had abdominal extensive surgery, recurrent malignancy, Moderately differentiated carcinoma although very status post total abdominal h ysterectomy/BSO and partial colectomy in August 2020, CEA 125 is elevated, CEA normal, receiving carbo plus Taxol. Reporting repeat scans showing improvement. Hypothyroidism managed by primary care physician Prediabetes, patient was educated on diet and weight loss. Obesity, BMI 39, we discussed weight loss and diet Preoperative cardiac evaluation, patient is considered at intermediate risk for perioperative cardiovascular complication, hold Xarelto for now Restart postoperatively when deemed reasonable by the surgeon Monitor EKG and heart rate closely. Monitor blood pressure ANSON POMPA MD November 17, 2022 17:52
[2022-11-17] MEDS ORDERED: PATIENT MAY USE OWN MEDS, ALL MC SCH (18:00)
[2022-11-17] MEDS ORDERED: LIDOCAINE UROJET 2% GEL 10 ML PKG TOP ONE (18:00)
[2022-11-17] MEDS ORDERED: ONDANSETRON 4 MG/2 ML (SDV) Z0FRAN IVP PRN (18:00)
[2022-11-17] MEDS ORDERED: dilTIAZem120 MG (CARDIZEM CD) CAP PO NR (18:30)
[2022-11-17] MEDS: LACTATED RINGERS 1,000 ML IV SCH (18:47)
[2022-11-17] MEDS: morphine INJ 4 MG/ML 1 ML (VIAL/SYRINGE) IVP PRN (18:54)
[2022-11-17] MEDS: MONTELUKAST 10 MG (SINGULAIR) TAB PO SCH (19:55)
[2022-11-17] MEDS: traZODone 150 MG (DESYREL) TABLET PO SCH (19:55)
[2022-11-17] MEDS: meTOprolol TARTRATE 50 MG (LOPRESSOR) TAB PO SCH (19:55)
[2022-11-17 20:20] VITALS: BP 148/89
[2022-11-17] MEDS ORDERED: traZODone 150 MG (DESYREL) TABLET PO SCH (21:00)
[2022-11-17] MEDS ORDERED: meTOprolol TARTRATE 50 MG (LOPRESSOR) TAB PO SCH (21:00)
[2022-11-17] MEDS ORDERED: CELECOXIB 100 MG (CeleBREX) CAP PO ONE (21:30)
[2022-11-17 23:42] VITALS: BP 113/61
[2022-11-18] VITALS (11 sets, daily range): BP systolic 118–155; BP diastolic 59–81
[2022-11-18 05:57] LABS: BASOPHILS % (AUTO) 1 % (0-10); EOSINOPHILS # (AUTO) 0.2 10^3/uL (0.0-0.3); EOSINOPHILS % (AUTO) 4 % (0-10); HEMATOCRIT 33 % (35-52); HEMOGLOBIN 10.5 g/dL (11.5-16.0); LYMPHOCYTES # (AUTO) 0.7 10^3/uL (1.0-4.0); LYMPHOCYTES % (AUTO) 19 % (12-44); MEAN CORPUSCULAR HEMOGLOBIN 27 pg (25-34); MEAN CORPUSCULAR HGB CONC 32 g/dL (32-36); MEAN CORPUSCULAR VOLUME 83 fL (80-99); MEAN PLATELET VOLUME 9.9 fL (9.0-12.2); MONOCYTES # (AUTO) 0.4 10^3/uL (0.0-1.0); MONOCYTES % (AUTO) 11 % (0-12); NEUTROPHILS # (AUTO) 2.5 10^3/uL (1.8-7.8); NEUTROPHILS % (AUTO) 66 % (42-75); PLATELET COUNT 168 10^3/uL (130-400); WHITE BLOOD COUNT 3.9 10^3/uL (4.3-11.0)
[2022-11-18 06:17] LABS: CHLORIDE 106 MMOL/L (98-107); POTASSIUM 3.8 MMOL/L (3.6-5.0); SODIUM 138 MMOL/L (135-145)
[2022-11-18 06:18] LABS: CALCIUM 8.4 MG/DL (8.5-10.1); GLUCOSE 101 MG/DL (70-105)
[2022-11-18 06:20] LABS: CARBON DIOXIDE 22 MMOL/L (21-32)
[2022-11-18 06:22] LABS: CREATININE SERUM 1.21 MG/DL (0.60-1.30); GFR ESTIMATED 47
[2022-11-18 06:23] LABS: BUN/CREATININE RATIO 23
[2022-11-18] MEDS: morphine INJ 4 MG/ML 1 ML (VIAL/SYRINGE) IVP PRN (07:47)
[2022-11-18] MEDS ORDERED: BUPIVACAINE 0.25% 30 ML (SENSORCAINE) VIAL ONE (08:05)
[2022-11-18] MEDS: PANTOPRAZOLE 40 MG (PROTONIX) TAB PO SCH (08:40)
[2022-11-18] MEDS: LACTATED RINGERS 1,000 ML IV SCH ×2 (08:40→11:52)
[2022-11-18] MEDS: dilTIAZem120 MG (CARDIZEM CD) CAP PO SCH (08:40)
[2022-11-18] MEDS: meTOprolol TARTRATE 50 MG (LOPRESSOR) TAB PO SCH ×2 (08:40→21:13)
[2022-11-18] MEDS: CELECOXIB 100 MG (CeleBREX) CAP PO SCH ×2 (08:40→21:13)
[2022-11-18] MEDS ORDERED: NALOXONE 0.4 MG/ML 1 ML (NARCAN) VIAL IV PRN (09:30)
[2022-11-18] MEDS ORDERED: ceFAZolin INJECTION 2,000 MG in NS (IVPB) 50 ML IV NR (10:00)
[2022-11-18] MEDS ORDERED: ceFAZolin INJECTION 2,000 MG ONE (10:01)
--- NOTE | 2022-11-18 10:07 | Progress Note-Pre Operative ---
Pre-Operative Progress Note Date of Available H&P: November 17, 2022 Date H&P Reviewed: November 18, 2022 Time H&P Reviewed: 10:05 Changes from last HP none Pre-Operative Diagnosis: right intertrochanteric femur fracture JUAN RAMOS MD November 18, 2022 10:07
--- NOTE | 2022-11-18 10:07 | Progress Note-Post Operative ---
Post-Operative Progess Note Surgeon (s)/Vault Keeper (s) Surgeon JUAN RAMOS MD Vault Keeper: Tae Coats Pre-Operative Diagnosis right intertrochanteric femur fracture Post-Operative Diagnosis right intertrochanteric femur fracture Procedure & Operative Findings Date of Procedure 11/18/22 Procedure Performed/Findings right hip IM carlos Anesthesia Type GETA Estimated Blood Loss Estimated blood loss (mL): 100ml Specimens/Packing Specimens Removed none Packing: none JUAN RAMOS MD November 18, 2022 10:07
[2022-11-18] MEDS ORDERED: fentaNYL INJ 100 MCG/2 ML AMP ONE ×2 (10:09→12:07)
[2022-11-18] MEDS ORDERED: proPOfol 200 MG/20 ML (DIPRIVAN) VIAL IV ONE (11:12)
[2022-11-18] MEDS ORDERED: LIDOCAINE PF 2% 5 ML (XYLOCAINE) VIAL ONE (11:12)
[2022-11-18] MEDS ORDERED: ONDANSETRON 4 MG/2 ML (SDV) Z0FRAN ONE (11:12)
--- NOTE | 2022-11-18 11:38 | History & Physical-Hospitalist ---
History of Present Illness HPI/Chief Complaint Pt is a 77yoCF who presented to the ER due to hip pain. She gives a limited and sometimes varyign history. She has no family at bedside and when asked what brought her to the hospital she stated and ambulance and needed clarification to further elaborate on why an ambulance was summoned. She told me she has been getting dizzy recently but has not had any syncopal episodes until yesterday. 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 She then couldn't get up and walk due to the pain and so they called the ambulance. She was found to have an right intertrochanteric hip fractuce and admitted for operative repair. Source: patient Date Seen 11/18/22 Time Seen by a Provider: 11:31 Attending Physician Yash Victoria MD PCP Admitting Physician: Robe Irene MD Attending Physician: Robe Irene MD Referring Physician Date of Admission November 17, 2022 at 17:15 Home Medications & Allergies Home Medications Reviewed patient Home Medication Reconciliation performed by pharmacy medication reconciliations automotive technician instructor and/or nursing. Patients Allergies have been reviewed. Allergies Allergies Coded Allergies Penicillins (Verified Allergy, Mild, 01/04/14) Csxterz-GAB-TvH Reductase Inhibitor (Verified Allergy, Mild, 01/04/14) codeine (Verified Allergy, Mild, 01/04/14) opium tincture (Verified Allergy, Mild, 01/04/14) tramadol (Verified Allergy, Mild, 01/04/14) Past Sszxzsr-Mcjxdq-Pmuhto Hx Patient Social History Employed/Student: retired Tobacco Use?: No Smoking Status: Former Smoker Use of E-Cig and/or Vaping dev: No Substance use?: No Alcohol Use?: Yes Alcohol Frequency: Once in a while Pt feels they are or have been: Yes Immunizations Up To Date Date of Influenza Vaccine: Jul 18, 2015 First/Initial COVID19 Vaccinat: N/A Second COVID19 Vaccination Yousuf: N/A Tetanus Booster (TDap): Unknown Date of Pneumonia Vaccine: Jul 18, 2015 Seasonal Allergies Seasonal Allergies: Yes Current Status status: No status: No Communicates: Verbally Primary Language: Tajik Preferred Spoken Language: Tajik Implanted or Applied Medical D: None Past Medical History Surgeries: Abdominal, Cardiac, Eye Surgery, Hysterectomy, Rectal, Tubal Ligation Asthma, Sleep Apnea Currently Using CPAP: No (PATIENT WEARS 02 AT NIGHT (3L/NC) ) Currently Using BIPAP: No Atrial Fibrillation, Coronary Artery Disease, High Cholesterol, Hypertension, Irregular Heartbeat, Peripheral Vascular Neuropathy 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 Hypertension 2. Atrial Fibrillation 3. Hypothyroidism 4. Hyperlipidemia 5. Fibromyalgia 6. Obesity 7. Moderate sleep apnea prescribed CPAP by Dr. Parks 2011 with 14cm of pressure. Currently only on night time O2 at 2-3L 8. Mild Coronary Artery Disease cath 09/03 Past Surgical History 1. Tubal ligation 2. Cataract lens implants 3. Oral Surgery 4. Hemorrhoidectomy Family Medical History Dementia 19 FATHER Drug abuse G8 BROTHER G8 SISTER FH: pancreatic cancer 19 MOTHER ( OF PANCREATIC CA AGE 67) Thyroid disease 19 MOTHER No Pertinent Family Hx CARDIAC CATHS--LAST ONE 04/12/19--MINIMAL SMALL VESSEL DISEASE, NO INTERVENTION LOOP RECORDER PLACED 12/10/18 FOR CHRONIC ATRIAL FIBRILLATION CAROTID STENOSIS Review of Systems Constitutional: see HPI Physical Exam Physical Exam Vital Signs Vital Signs - First Documented 11/17/22 12:54 Temp 36.0 Pulse 67 Resp 20 B/P (MAP) 166/113 (130) Pulse Ox 96 O2 Delivery Room Air Capillary Refill : Height, Weight, BMI Height: 5'7.00" Weight: 235lbs. 11.2oz. 106.223051cs; 24.00 BMI Method:Stated General Appearance: No Apparent Distress, Chronically ill Respiratory: Lungs Clear, No Respiratory Distress Cardiovascular: Regular Rate, Rhythm, No Murmur Gastrointestinal: Normal Bowel Sounds, Soft Extremity: No Calf Tenderness, No Pedal Edema Neurologic/Psychiatric: Alert, Oriented x3 (to major details only- seem confused regarding minor details of history and hospital stay) Results Results/Procedures Labs Laboratory Tests 11/17/22 13:05 11/18/22 05:42 Patient resulted labs reviewed. Imaging: Reviewed Imaging Report [facility] [place] [place] NAME: PACO TENA [facility] REC#: [id number] PT STATUS: REG ER : 1945 PHYSICIAN: NY JONES MD ADMIT DATE: 11/17/22/ER Signed Date of Exam:11/17/22 PELVIS WITH RIGHT HIP 2-3VIEWS EXAMINATION: Pelvis and right hip radiograph EXAM DATE: 11/17/2022 3:24 PM COMPARISON: None available. HISTORY: Right hip pain. TECHNIQUE: Three views FINDINGS: There is an acute mildly displaced fracture of the intertrochanteric right femur. There is mild joint space narrowing and small osteophytes of both hips. The soft tissues are normal. IMPRESSION: 1. Mildly displaced acute fracture of the intertrochanteric right femur. Dictated by: Dictated on workstation # [id number] Dict: 11/17/22 1531 Trans: 11/17/22 1547 [id number] Interpreted by: FRANCESCA LIMON DO Electronically signed by: FRANCESCA LIMON DO 11/17/22 1547 [facility] [place] [place] NAME: PACO TENA [facility] REC#: [id number] PT STATUS: ADM IN : 1945 PHYSICIAN: NY JONES MD ADMIT DATE: 11/17/22/[facility] Signed Date of Exam:11/17/22 CT HEAD/CERVICAL SPINE WO PROCEDURE: CT head and CT cervical spine without contrast. TECHNIQUE: Multiple contiguous axial images were obtained through the brain and cervical spine without the use of intravenous contrast. Sagittal and coronal reformations through the cervical spine were then performed. Auto Exposure Controls were utilized during the CT exam to meet ALARA standards for radiation dose reduction. INDICATION: Fall and syncope. Comparison is made with prior CT from 09/05/2022. CT HEAD: FINDINGS: Ventricles and sulci are stable in appearance. Moderate periventricular low attenuation is noted consistent with chronic microvascular ischemia. No sulcal effacement or midline shift is identified. No acute intra-axial or extra-axial hemorrhage is detected. Cisterns are patent. Visualized paranasal sinuses are clear. IMPRESSION: Changes of chronic microvascular ischemia. No acute intracranial process is detected. CT CERVICAL SPINE: FINDINGS: Curvature and alignment of the cervical spine is normal. Multilevel degenerative disc disease is noted with variable disc space narrowing and marginal spurring. Prevertebral tissues are within normal limits. Odontoid is intact. There is multilevel facet arthropathy. IMPRESSION: Cervical spondylosis. No acute bony abnormality is detected. Dictated by: Dictated on workstation # [id number] Dict: 11/17/22 1627 Trans: 11/17/22 [id number] Interpreted by: ELKE LEYVA MD Electronically signed by: ELKE LEYVA MD 11/17/22 9651 Assessment/Plan Admission Diagnosis Right hip fracture Admission Status: Inpatient Order (span 2 midnights) Reason for Inpatient Admission: see below Assessment and Plan Right hip fracture Intermediate perioperative risk (8.6% of serious complication per NSQIP) Dr Sun consulted, appreciate recs Planning for OR today NPO Pain regimen PT/OT post op financial services counselor consult for discharge planning (SNF vs IRF vs HH) Syncope A fib HTN CAD HLD Gives varying history of syncope Told me she was getting up to go to the bathroom and this is the first time she has had syncope but told ER and Dr Savage this has happened multiple time Has loop recorder but battery depleted 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 post op Hold Xarelto for surgery Hypothyroidism Continue home meds DVT ppx: Xarelto when ok with surgery Diagnosis/Problems Diagnosis/Problems (1) Closed intertrochanteric fracture of right hip Status: Acute Qualifiers: Encounter type: initial encounter Fracture alignment: displaced Qualified Codes: S72.141A - Displaced intertrochanteric fracture of right femur, initial encounter for closed fracture (2) Hypertension Status: Chronic (3) Hyperlipidemia Status: Chronic (4) Hypothyroidism Status: Chronic (5) Anticoagulated Status: Acute (6) Fall on same level Status: Acute Qualifiers: Encounter type: initial encounter Qualified Codes: W18.30XA - Fall on same level, unspecified, initial encounter (7) Syncope Status: Acute Qualifiers: Syncope type: unspecified Qualified Codes: R55 - Syncope and collapse (8) HX OVARIAN CANCER EXTENDING INTO COLON (9) DVT prophylaxis Status: Acute (10) Atrial fibrillation Status: Chronic ROBE IRENE MD November 18, 2022 11:37
--- NOTE | 2022-11-18 11:40 | Anesthesia-General Post-Op ---
General Patient Condition Mental Status/LOC: Same as Preop Cardiovascular: Satisfactory Nausea/Vomiting: Absent Respiratory: Satisfactory Pain: Controlled Complications: Absent Post Op Complications Complications None Follow Up Care/Instructions Patient Instructions None needed. Anesthesia/Patient Condition Patient Condition Patient is doing well, no complaints, stable vital signs, no apparent adverse anesthesia problems. No complications reported per nursing. JIMY MILLER CRNA November 18, 2022 11:40
[2022-11-18] MEDS ORDERED: LACTATED RINGERS 1,000 ML IV ONE (11:51)
--- NOTE | 2022-11-18 11:54 | Cardiology Progress Note ---
Subjective Time Seen by Provider: 08:30 Subjective/Events-last exam Patient is in bed, c/o right hip pain. Denies any chest pain or dyspnea. Objective-Cardiology Exam Last Set of Vital Signs Vital Signs 11/18/22 16:05 Temp 36.4 Pulse 61 Resp 16 B/P (MAP) 140/67 (91) Pulse Ox 96 O2 Delivery Nasal Cannula O2 Flow Rate 2.00 I&O Intake and Output 11/18/22 00:00 Intake Total 300 ml Output Total 575 ml Balance -275 ml Intake Oral 300 ml Output Urine Total 575 ml Daily Weight Change Unsure General: Alert, Oriented X3, Cooperative Lungs: Clear to Auscultation, Normal Air Movement Heart: Normal S1, Normal S2, Other (irregularly irregular) Abdomen: Soft, No Tenderness Neuro: Normal Speech, Cranial Nerves 3-12 NL Psych/Mental Status: Mental Status NL, Mood NL Results Lab Laboratory Tests 11/18/22 05:42 A/P-Cardiology Admission Diagnosis Syncope Atrial fibrillation Hip fracture Chest pain Assessment/Plan Syncope, unknown etiology, most probably labile hypertension. Resulted in hip fracture Will monitor on telemetry Right-sided hip fracture scheduled for hip surgery later this morning. Chest pain, nonspecific etiology, has been having chronic chest pain on and off. Continue to monitor Permanent atrial fibrillation with variable response, had an episode of aberrant conduction, seen by Dr. Emerson, had a loop recorder implanted in November 2018, having multiple episodes of atrial fibrillation and pauses. The loop monitor battery was depleted few months ago. Currently in atrial fibrillation, will place on telemetry. GPV0AQ3-VDIi score is 3, yearly risk of stroke without oral anticoagulation is 3.2 percent. Patient is maintained on Xarelto. Had previous trauma to the face secondary to falling, Hold Xarelto for now. Episodes of dizziness with exertion, reporting worsening symptoms recently, has history of atrial fibrillation and questionable sinus node dysfunction Continue to monitor Coronary artery disease, cardiac catheterization was done in August 2015 showing mild ectasia in the proximal LAD with slow flow in the proximal LAD at otherwise small vessel disease no significant obstructive disease. Had another cardiac catheterization done in March 2019 after having an abnormal stress test showing coronary ectasia, no change compared to 2015. Currently EKG did not show any acute abnormality on November 17, 2022. Continue to monitor 2D Echo done June 2021 showing EF 55-65%, mildly dilated left atrium, mild AR, PA 40mmHg. I will repeat 2D echo Mild bilateral nonobstructive carotid artery stenosis, continue to monitor COPD, obstructive sleep apnea, seen by Dr. Boston in the past. Managed by primary care physician Hypertension, poorly controlled Restart home medication monitor blood pressure Hyperlipidemia, had lab work done with mild lab. I will obtain copy of the results Ovarian cancer, had abdominal extensive surgery, recurrent malignancy, Moderately differentiated carcinoma although very status post total abdominal hysterectomy/BSO and partial colectomy in August 2020, CEA 125 is elevated, CEA normal, receiving carbo plus Taxol. Reporting repeat scans showing improvement. Hypothyroidism managed by primary care physician Prediabetes, patient was educated on diet and weight loss. Obesity, BMI 39, we discussed weight loss and diet Supervisory-Addendum Brief Supervisory Addendum Participated in pt care: history, MDM, physical Personally performed: exam, history, MDM Care discussed with: ROSARIO Results interpretation: Verified all documentation Notes: Patient was seen and evaluated with Peri, examination performed, management plan was discussed, agree with the current scribed note, I made few changes to the note using Italic font Patient was seen postoperatively recovering well Denied any chest pain, slightly tired. I will proceed with arrangement for extraction of her old loop monitor and planning to proceed with implantation of a new device prior to discharge. Continue to monitor. We will try to accept a higher blood pressure to avoid any further syncope and monitor on telemetry. PERI BERG November 18, 2022 11:54 ANSON POMPA MD November 18, 2022 16:31
[2022-11-18] MEDS ORDERED: fentaNYL INJ 100 MCG/2 ML AMP IVP ONE (12:15)
[2022-11-18] MEDS ORDERED: LACTATED RINGERS 1,000 ML IV PRN (12:30)
[2022-11-18] MEDS: morphine INJ 10 MG/ML 1ML (SYR OR VIAL) IVP PRN (14:29)
--- NOTE | 2022-11-18 15:22 | Physical Therapy Evaluation ---
PT Evaluation-General Medical Diagnosis Admission Date November 17, 2022 at 17:15 Medical Diagnosis: Right hip fracture Onset Date: November 17, 2022 Therapy Diagnosis Therapy Diagnosis: Gait deficit, strength deficit Height/Weight Height (Feet): 5 Height (Inches): 7.00 Weight (Pounds): 235 Weight (Ounces): 11.2 Precautions Precautions/Isolations: Fall Prevention, Standard Precautions Weight Bear Status Right Lower Extremity: Right Partial Weight Bearing Left Lower Extremity: Left Full Weight Bearing Referral Physician: Dr. Sun Reason for Referral: Evaluation/Treatment Medical History Reviewed History: Yes Social History Home: Single Level Current Living Status: Other Family Entry Into Home: Stairs With Railing PT Steps Into Home: 2 Prior Prior Level of Function SCALE: Activities may be completed with or without assistive devices. 9-Kdjnnrlwza-fybleya completes the activity by him/herself with no assistance from a helper. 5-Set-up or Clean-up Assistance-helper sets up or cleans up; patient completes activity. [place] assists only prior to or following the activity. 4-Supervision or Touching Assistance-helper provides verbal cues and/or touching/steadying and/or contact guard assistance as patient completes activity. Assistance may be provided throughout the activity or intermittently. 3-Partial/Moderate Assistance-helper does LESS THAN HALF the effort. [place] lifts, holds or supports trunk or limbs, but provides less than half the effort. 2-Substantial/Maximal Assistance-helper does MORE THAN HALF the effort. [place] lifts or holds trunk or limbs and provides more than half the effort. 2-Zyidbtnmn-nhdsyg does ALL the effort. Patient does none of the effort to complete the activity. Or, the assistance of 2 or more helpers is required for the patient to complete the activity. If activity was not attempted, code reason: 7-Patient Refused. 9-Not Applicable-not attempted and the patient did not perform the activity before the current illness, exacerbation or injury. 10-Not Attempted due to Environmental Limitations-(lack of equipment, weather restraints, etc.). 88-Not Attempted due to Medical Conditions or Safety Concerns. Bed Mobility: 6 Transfers (B,C,W/C): 6 Gait: 6 Stairs: 6 Indoor Mobility (Ambulation): Independent Stairs: Independent Prior Devices Use: None PT Evaluation-Current Subjective Patient lying supine in bed upon PT arrival, agreeable to treatment. Patient rates pain at 0/10. Objective Patient Orientation: Person, Place, Time, Situation Attachments: Oxygen, Dominique Catheter, IV ROM/Strength ROM Lower Extremities Right hip limited all planes due to surgery. All other ROMs WFLs left knee/ankle and RLE. Sensory Vision: Functional Hearing: Functional Sensation Right Lower Extremit: Intact Sensation Left Lower Extremity: Intact Transfers Roll Left to Right (QC): 2 Sit to Lying (QC): 2 Lying to Sitting/Side of Bed(Q: 2 Sit to Stand (QC): 2 Gait Does the Patient Walk?: No and Walking Goal IS indicated Mode of Locomotion: Walk Anticipated Mode of Locomotion: Walk Balance Sitting Static: Fair Sitting Dynamic: Fair Standing Static: Poor Standing Dynamic: Poor Assessment/Needs Patient very groggy upon PT arrival, but able to participate. Patient performs all bed mobility and transfers with max A. Patient able to perform sit to stand with max A and is able to tolerate standing ~3 minutes. Attempted to take a nicolle p but unable to comply with PWB right LE. Patient in bed post treatment with all needs met, call light in hand, and nurse notified. Rehab Potential: Fair PT Assistant Chief Engineer Goals Assistant Chief Engineer Goals PT Assistant Chief Engineer Goals Time Frame: December 16, 2022 Roll Left & Right (QC): 4 Sit to Lying (QC): 4 Lying-Sitting on Side/Bed(QC): 4 Sit to Stand (QC): 4 Chair/Ntq-kc-Rzdmy Xfer(QC): 4 Toilet Transfer (QC): 4 Does the Patient Walk: Yes Walk 10 feet (QC): 3 Walk 50ft with 2 Turns (QC): 3 Walk 150 ft (QC): 3 1 Step (curb) (QC): 3 4 Steps (QC): 3 PT Plan Problem List Problem List: Activity Tolerance, Functional Strength, Safety, Balance, Gait, Transfer, Bed Mobility, ROM Treatment/Plan Treatment Plan: Continue Plan of Care Treatment Plan: Bed Mobility, Education, Functional Activity Luzma, Functional Strength, Group Therapy, Gait, Safety, Therapeutic Exercise, Transfers Treatment Duration: December 16, 2022 Frequency: 11 times per week Estimated Hrs Per Day: .25 hour per day Patient and/or Family Agrees t: Yes Safety Risks/Education Patient Education: Gait Training, Transfer Techniques Teaching Recipient: Patient Teaching Methods: Demonstration, Discussion Response to Teaching: Reinforcement Needed Time Time In: 1448 Time Out: 1503 DATE: November 18, 2022 Total Billed Treatment Time: 15 Total Billed Treatment Visit, KATY CARMONA PT November 18, 2022 15:22
[2022-11-18] MEDS ORDERED: LIDOCAINE/EPI 2% 1:100,00 (XYLOCAINE) 20 ML VIAL INJ ONE (15:30)
--- NOTE | 2022-11-18 15:30 | Consultation - Surgery ---
LORENA HUFF 11/18/22 1530: History of Present Illness History of Present Illness Patient Consulted On(philippe/time) 11/18/22 15:22 Date Seen by Provider: November 18, 2022 Time Seen by Provider: 15:10 Reason for Visit: loop recorder removal consultation History of Present Illness Pt was seen s/p hip fracture repair surgery, she said she was a little groggy, but was A&O x4. She denied any pain and said that she was wanting to have the loop recorder taken out. She denied having n/v/d, headache, chest pain, or abd pain. She says she is in constant Afibb, and has mild dyspnea and dry cough. Allergies and Home Medications Allergies Coded Allergies: Penicillins (Verified Allergy, Mild, 01/04/14) Irajktv-CLC-PqQ Reductase Inhibitor (Verified Allergy, Mild, 01/04/14) codeine (Verified Allergy, Mild, 01/04/14) opium tincture (Verified Allergy, Mild, 01/04/14) tramadol (Verified Allergy, Mild, 01/04/14) Patient Home Medication List Amlodipine Besylate (Amlodipine Besylate) 10 Mg Tablet, 5 MG PO DAILY, (Reported) Entered as Reported by: JUSTIN HUNTER on 11/18/22 1540 Last Action: Reviewed Atorvastatin Calcium (Atorvastatin Calcium) 10 Mg Tablet, 10 MG PO HS, (Reported) Entered as Reported by: MOHIT RODRIGUEZ on 06/04/20 1438 Last Action: Reviewed Ferrous Sulfate (Ferosul) 325 Mg (65 Mg Iron) Tablet, 325 MG PO DAILY, (Reported ) Entered as Reported by: TANG MATHIAS on 09/22/21 1513 Last Action: Reviewed Fluticasone Propionate (Fluticasone Propionate) 50 Mcg/Actuation [place].susp, 1-2 SPRAYS NSEACH DAILY, (Reported) Entered as Reported by: JUSTIN HUNTER on 11/18/22 154 Last Action: Reviewed Levothyroxine Sodium (Levothyroxine Sodium) 125 Mcg Tablet, 125 MCG PO DAILY, (Reported) Entered as Reported by: SHAWN ROLLE on 08/21/15 0856 Last Action: Reviewed Metoprolol Tartrate (Metoprolol Tartrate) 50 Mg Tablet, 50 MG PO BID, (Reported) Entered as Reported by: JUSTIN HUNTER on 11/18/221539 Last Action: Reviewed Montelukast Sodium (Montelukast Sodium) 10 Mg Tablet, 10 MG PO DAILY PRN for ALLERGY SYMPTOMS, (Reported) Entered as Reported by: MOHIT RODRIGUEZ on 06/04/201437 Last Action: Reviewed Pantoprazole Sodium (Pantoprazole Sodium) 40 Mg Tablet.dr, 40 MG PO DAILY, (Reported) Entered as Reported by: TANG MATHIAS on 09/22/211512 Last Action: Reviewed Rivaroxaban (Xarelto) 20 Mg Tablet, 20 MG PO HS, (Reported) Entered as Reported by: JUSTIN HUNTER on 11/18/221539 Last Action: Reviewed Trazodone HCl (Trazodone HCl) 300 Mg Tablet, 300 MG PO HS, (Reported) Entered as Reported by: JUSTIN HUNTER on 11/18/221539 Last Action: Reviewed Discontinued Medications Bisacodyl (Bisacodyl) 10 Mg Supp.rect, 10 MG RC Q12H PRN for CONSTIPATION-2ND LINE Discontinued Reason: No Longer Taking Prescribed by: NORMA OWENS on 01/07/21 1256 Last Action: Discontinued Diltiazem HCl (Cartia Xt) 120 Mg Cap.er.24h, 120 MG PO DAILY, (Reported) Discontinued Reason: No Longer Taking Entered as Reported by: TANG MATHIAS on 09/22/211512 Last Action: Discontinued Fluticasone Propionate (Flovent Hfa 110 mcg) 1 Ea Aero, 2 EA IH BID, (Reported) Discontinued Reason: No Longer Taking Entered as Reported by: MOHIT RODRIGUEZ on 06/04/201437 Last Action: Discontinued Hydroxyzine HCl (Hydroxyzine HCl) 25 Mg Tablet, 25 MG PO BID, (Reported) Discontinued Reason: No Longer Taking Entered as Reported by: MOHIT RODRIGUEZ on 06/04/201437 Last Action: Discontinued Metoprolol Succinate (Metoprolol Succinate) 200 Mg Tab.er.24h, 200 MG PO DAILY, (Reported) Discontinued Reason: No Longer Taking Entered as Reported by: MOHIT RODRIGUEZ on 06/04/201437 Last Action: Discontinued Olaparib (Lynparza) 100 Mg Tablet, 100 MG PO BID, (Reported) Discontinued Reason: No Longer Taking Entered as Reported by: TANG MATHIAS on 09/22/211512 Last Action: Discontinued Ondansetron HCl (Ondansetron HCl) 8 Mg Tablet, 8 MG PO DAILY, (Reported) Discontinued Reason: No Longer Taking Entered as Reported by: TANG MATHIAS on 09/22/211512 Last Action: Discontinued Prednisone (Prednisone) 10 Mg Tab.ds.pk, 10 MG PO PRN, (Reported) Discontinued Reason: No Longer Taking Entered as Reported by: TANG MATHIAS on 09/22/211512 Last Action: Discontinued Prochlorperazine Maleate (Prochlorperazine Maleate) 10 Mg Tablet, 10 MG PO TID, (Reported) Discontinued Reason: No Longer Taking Entered as Reported by: TANG MATHIAS on 09/22/211512 Last Action: Discontinued Trazodone HCl (Trazodone HCl) 150 Mg Tablet, 150 MG PO HS, (Reported) Discontinued Reason: No Longer Taking Entered as Reported by: TANG MATHIAS on 09/22/211512 Last Action: Discontinued Past Dxgrqkh-Xisgcl-Hdzfrv Hx Patient Social History Smoking Status: Former Smoker Former Smoker, Quit: Jun 04, 2000 Type Used: Cigarettes 2nd Hand Smoke Exposure: No Recent Hopitalizations: No Alcohol Use?: Yes Have you traveled recently?: No Immunizations Up To Date Tetanus Booster (TDap): Unknown Date of Pneumonia Vaccine: Jul 18, 2015 Date of Influenza Vaccine: Jul 18, 2015 Seasonal Allergies Seasonal Allergies: Yes Surgeries History of Surgeries: Yes (DENTAL;HEMORRHOIDECTOMY;CARDIAC CATHS-NO INTERVENTION;LOOP RECORDER;CATARAC) Surgeries: Abdominal, Cardiac, Eye Surgery, Hysterectomy, Rectal, Tubal Ligation Respiratory History of Respiratory Disorde: Yes Respiratory Disorders: Asthma, Sleep Apnea Cardiovascular History of Cardiac Disorders: Yes ( CHF;'HOLE IN MY HEART"PER PT;CARDIAC CATHS- NO INTERVENTION; LOOP RECORDER;) Cardiac Disorders: Atrial Fibrillation, Coronary Artery Disease, High Cholester ol, Hypertension, Irregular Heartbeat, Peripheral Vascular Neurological History of Neurological Disord: Yes Neurological Disorders: Neuropathy 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 System Hx 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 Disorders: No Sexually Transmitted Disease: No HIV/AIDS: No 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 Disorders: Denies 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 Genitourinary History of Genitourinary Disor: Yes (INCONTINENCE) Genitourinary Disorders: Bladder Infection, UTI-Chronic Gastrointestinal History of Gastrointestinal Di: Yes Gastrointestinal Disorders: Gastroesophageal Reflux, Chronic Constipation, Hemorrhoids, Irritable Bowel Musculoskeletal History of Musculoskeletal Dis: Yes (CHRONIC NECK, BACK AND KNEE PAIN) Musculoskeletal Disorders: Osteoporosis, Arthritis, Fibromyalgia, Chronic Back Pain Endocrine History of Endocrine Disorders: Yes (HYPOGLYCEMIA; OBESITY) Endocrine Disorders: Hypothyroidsim HEENT History of HEENT Disorders: Yes (WEARS GLASSES; CATARACT SURGERY) HEENT Disorders: Cataract Hearing Impairment: Hard of Hearing Cancer History of Cancer: Yes Cancer: Ovarian Psychosocial History of Psychiatric Problem: Yes Behavioral Health Disorders: Anxiety Integumentary History of Skin or Integumenta: No Blood Transfusions History of Blood Disorders: Yes (HX ANEMIA) Adverse Reaction to a Blood Tr: No (N/A) Family Medical History Significant Family History: No Pertinent Family Hx Family Medial History: Dementia 19 FATHER Drug abuse G8 BROTHER G8 SISTER FH: pancreatic cancer 19 MOTHER ( OF PANCREATIC CA AGE 67) Thyroid disease 19 MOTHER Review of Systems-General Constitutional: No chills, No diaphoresis, No dizziness, No fever, No malaise; weakness EENTM: No blurred vision, No vision loss, No hoarseness, No nose congestion Respiratory: cough, dyspnea on exertion; No hemoptysis; short of breath; No stridor, No wheezing Cardiovascular: No chest pain, No edema; Hx of Intervention, palpitations, syncope (passed out before coming to hospital, thats how she broke her hip) Gastrointestinal: No abdominal pain, No jaundice, No nausea, No vomiting Genitourinary: No dysuria, No hematuria, No pain Musculoskeletal: joint pain (broken hip), muscle weakness Skin: dryness; No pruritus, No rash Psychiatric/Neurological: Denies Headache, Denies Numbness, Denies Paresthesia, Denies Tremors Physical Exam-General Problems Physical Exam Vital Signs Vital Signs - First Documented 11/17/22 12:54 Temp 36.0 Pulse 67 Resp 20 B/P (MAP) 166/113 (130) Pulse Ox 96 O2 Delivery Room Air Capillary Refill : Less Than 3 Seconds General Appearance: WD/WN, no apparent distress HEENT: PERRL/EOMI; No pale conjunctivae (R), No pale conjunctivae (L), No photophobia Neck: non-tender, supple Respiratory: no respiratory distress, no accessory muscle use, decreased breath sounds, wheezing Cardiovascular: no murmur, irregularly irregular Peripheral Pulses: 2+ Radial Pulses (R), 2+ Radial Pulses (L) Gastrointestinal: non tender, soft; No distended, No guarding, No rebound Back: decreased range of motion Extremities: non-tender, no pedal edema, no calf tenderness Neurologic/Psychiatric: alert, oriented x 3; No aphasia; depressed affect Skin: warm/dry; No ecchymosis, No jaundice, No pallor Lymphatic: no adenopathy Data Review Labs Laboratory Tests 11/18/22 05:42: White Blood Count 3.9L, Red Blood Count 3.94, Hemoglobin 10.5L, Hematocrit 33L, Mean Corpuscular Volume 83, Mean Corpuscular Hemoglobin 27, Mean Corpuscular Hemoglobin Concent 32, Red Cell Distribution Width 13.6, Platelet Count 168, Mean Platelet Volume 9.9, Immature Granulocyte % (Auto) 0, Neutrophils (%) (Auto) 66, Lymphocytes (%) (Auto) 19, Monocytes (%) (Auto) 11, Eosinophils (%) (Auto) 4, Basophils (%) (Auto) 1, Neutrophils # (Auto) 2.5, Lymphocytes # (Auto) 0.7L, Monocytes # (Auto) 0.4, Eosinophils # (Auto) 0.2, Basophils # (Auto) 0.0, Immature Granulocyte # (Auto) 0.0, Sodium Level 138, Potassium Level 3.8, Chloride Level 106, Carbon Dioxide Level 22, Anion Gap 10, Blood Urea Nitrogen 28H, Creatinine 1.21, Estimat Glomerular Filtration Rate 47, BUN/Creatinine Ratio 23, Glucose Level 101, Calcium Level 8.4L, Troponin I < 0.028 Assessment/Plan Assessment/Plan Assessment/Plan s/p hip fracture repair non functioning loop recorder * pt was agreeable to having loop recorder removed * will sterilize, and remove loop recorder at bedside * will sign off after, call if anything else is needed Pt was made aware of the procedure and is agreeable to it. MINI HOFFMAN DO 11/18/22 6003: History of Present Illness History of Present Illness History of Present Illness Consult requested by Dr. Savage for loop recorder removal. Patient is a 77 year old female known to me. She had syncopal episode and res ulted in right hip fracture. She has a loop recorder that battery is . Planning on having a new one placed. Denies any other complaints at this time. Her is at bedside and both agree with removal. Allergies and Home Medications Allergies Coded Allergies: Penicillins (Verified Allergy, Mild, 01/04/14) Ayhimes-DZW-XdZ Reductase Inhibitor (Verified Allergy, Mild, 01/04/14) codeine (Verified Allergy, Mild, 01/04/14) opium tincture (Verified Allergy, Mild, 01/04/14) tramadol (Verified Allergy, Mild, 01/04/14) Patient Home Medication List Home Medication List Reviewed: Yes Amlodipine Besylate (Amlodipine Besylate) 10 Mg Tablet, 5 MG PO DAILY, (Reported) Entered as Reported by: JUSTIN HUNTER on 11/18/221539 Last Action: Reviewed Atorvastatin Calcium (Atorvastatin Calcium) 10 Mg Tablet, 10 MG PO HS, (Reported) Entered as Reported by: MOHIT RODRIGUEZ on 06/04/201437 Last Action: Reviewed Ferrous Sulfate (Ferosul) 325 Mg (65 Mg Iron) Tablet, 325 MG PO DAILY, (Reported) Entered as Reported by: TANG MATHIAS on 09/22/21 1513 Last Action: Reviewed Fluticasone Propionate (Fluticasone Propionate) 50 Mcg/Actuation [place].susp, 1-2 SPRAYS NSEACH DAILY, (Reported) Entered as Reported by: JUSTIN HUNTER on 11/18/221539 Last Action: Reviewed Levothyroxine Sodium (Levothyroxine Sodium) 125 Mcg Tablet, 125 MCG PO DAILY, (Reported) Entered as Reported by: SHAWN ROLLE on 08/21/15 0856 Last Action: Reviewed Metoprolol Tartrate (Metoprolol Tartrate) 50 Mg Tablet, 50 MG PO BID, (Reported) Entered as Reported by: JUSTIN HUNTER on 11/18/221539 Last Action: Reviewed Montelukast Sodium (Montelukast Sodium) 10 Mg Tablet, 10 MG PO DAILY PRN for ALLERGY SYMPTOMS, (Reported) Entered as Reported by: MOHIT RODRIGUEZ on 06/04/20 143 Last Action: Reviewed Pantoprazole Sodium (Pantoprazole Sodium) 40 Mg Tablet.dr, 40 MG PO DAILY, (Reported) Entered as Reported by: TANG MATHIAS on 09/22/211512 Last Action: Reviewed Rivaroxaban (Xarelto) 20 Mg Tablet, 20 MG PO HS, (Reported) Entered as Reported by: JUSTIN HUNTER on 11/18/221539 Last Action: Reviewed Trazodone HCl (Trazodone HCl) 300 Mg Tablet, 300 MG PO HS, (Reported) Entered as Reported by: JUSTIN HUNTER on 11/18/221539 Last Action: Reviewed Discontinued Medications Bisacodyl (Bisacodyl) 10 Mg Supp.rect, 10 MG RC Q12H PRN for CONSTIPATION-2ND LINE Discontinued Reason: No Longer Taking Prescribed by: NORMA OWENS on 01/07/21 1256 Last Action: Discontinued Diltiazem HCl (Cartia Xt) 120 Mg Cap.er.24h, 120 MG PO DAILY, (Reported) Discontinued Reason: No Longer Taking Entered as Reported by: TANG MATHIAS on 09/22/211512 Last Action: Discontinued Fluticasone Propionate (Flovent Hfa 110 mcg) 1 Ea Aero, 2 EA IH BID, (Reported) Discontinued Reason: No Longer Taking Entered as Reported by: MOHIT RODRIGUEZ on 06/04/201437 Last Action: Discontinued Hydroxyzine HCl (Hydroxyzine HCl) 25 Mg Tablet, 25 MG PO BID, (Reported) Discontinued Reason: No Longer Taking Entered as Reported by: MOHIT RODRIGUEZ on 06/04/201437 Last Action: Discontinued Metoprolol Succinate (Metoprolol Succinate) 200 Mg Tab.er.24h, 200 MG PO DAILY, (Reported) Discontinued Reason: No Longer Taking Entered as Reported by: MOHIT RODRIGUEZ on 06/04/201437 Last Action: Discontinued Olaparib (Lynparza) 100 Mg Tablet, 100 MG PO BID, (Reported) Discontinued Reason: No Longer Taking Entered as Reported by: TANG MATHIAS on 09/22/211512 Last Action: Discontinued Ondansetron HCl (Ondansetron HCl) 8 Mg Tablet, 8 MG PO DAILY, (Reported) Discontinued Reason: No Longer Taking Entered as Reported by: TANG MATHIAS on 09/22/211512 Last Action: Discontinued Prednisone (Prednisone) 10 Mg Tab.ds.pk, 10 MG PO PRN, (Reported) Discontinued Reason: No Longer Taking Entered as Reported by: TANG MATHIAS on 09/22/211512 Last Action: Discontinued Prochlorperazine Maleate (Prochlorperazine Maleate) 10 Mg Tablet, 10 MG PO TID, (Reported) Discontinued Reason: No Longer Taking Entered as Reported by: TANG MATHIAS on 09/22/211512 Last Action: Discontinued Trazodone HCl (Trazodone HCl) 150 Mg Tablet, 150 MG PO HS, (Reported) Discontinued Reason: No Longer Taking Entered as Reported by: TANG MATHIAS on 09/22/211512 Last Action: Discontinued Past Asjerde-Frxyso-Iylpfw Hx Reviewed Nursing Assessment Reviewed/Agree w Nursing PMH: Yes Family Medical History Significant Family History: No Pertinent Family Hx Family Medial History: Dementia 19 FATHER Drug abuse G8 BROTHER G8 SISTER FH: pancreatic cancer 19 MOTHER ( OF PANCREATIC CA AGE 67) Thyroid disease 19 MOTHER Review of Systems-General Constitutional: No diaphoresis, No fever EENTM: No blurred vision Respiratory: cough; No dyspnea on exertion; short of breath Cardiovascular: No chest pain, No Hx of Intervention, No palpitations; syncope (passed out before coming to hospital, thats how she broke her hip) Gastrointestinal: No jaundice, No nausea, No vomiting Genitourinary: No decreased output, No hematuria Musculoskeletal: joint pain (broken hip), muscle weakness Skin: No change in color, No rash Psychiatric/Neurological: Denies Anxiety, Denies Depressed, Denies Emotional Problems All Other Systems Reviewed Negative Unless Noted: Yes (Negative excepted noted.) Physical Exam-General Problems Physical Exam General Appearance: no apparent distress, obese HEENT: PERRL/EOMI Neck: non-tender, supple Respiratory: no respiratory distress, no accessory muscle use Cardiovascular: no JVD, irregularly irregular Gastrointestinal: non tender, soft Rectal: deferred Back: normal inspection, no CVA tenderness Extremities: no pedal edema, no calf tenderness Neurologic/Psychiatric: alert, oriented x 3 Skin: normal color, warm/dry Lymphatic: no adenopathy Assessment/Plan Assessment/Plan Assessment/Plan s/p hip fracture repair non functioning loop recorder * pt and are agreeable to having loop recorder removed * will sign off after, call if needed. Suture needs removed in 2 weeks. PROCEDURE: foreign body removal left chest subcutaneous tissue (loop recorder). Left chest prepped and draped in sterile fashion. 4 mL of 2% lidocaine with epi was used to anesthetize the area. 15 blade scalpel was used to make incision over lateral edge of loop. Hemostat was used to dissect to loop and grab and remove. Skin was closed with 3-0 nylon in simple interrupted fashion. Sterile bandage applied. Supervisory-Addendum Brief Verification & Attestation Participated in pt care: history, MDM, physical Personally performed: exam, history, MDM, supervision of care Care discussed with: Medical Student Procedures: n/a Results interpretation: Verified all documentation Verification and Attestation of Medical Student E/M Service A medical student performed and documented this service in my presence. I reviewed and verified all information documented by the medical student and made modifications to such information, when appropriate. I personally performed the physical exam and medical decision making. Mini Hoffman November 18, 2022,17:46 LORENA HUFF November 18, 2022 15:30 MINI HOFFMAN DO November 18, 2022 17:43
[2022-11-18] MEDS ORDERED: AMLO-251 PO (15:40)
[2022-11-18] MEDS ORDERED: FLUT16SP22 NSEACH (15:40)
[2022-11-18] MEDS ORDERED: TRAZ300T3 PO (15:40)
[2022-11-18] MEDS ORDERED: METO50TA15 PO (15:40)
[2022-11-18] MEDS ORDERED: RIVA20TA PO (15:40)
[2022-11-18] MEDS: ceFAZolin INJECTION 2,000 MG in NS (IVPB) 50 ML IV SCH (17:07)
--- NOTE | 2022-11-18 17:41 | Diagnostic Imaging Report ---
INDICATION: Fracture and surgery. FINDINGS: 58 seconds of fluoro time utilized during orthopedic surgery repairing hip fracture. IMPRESSION: Fluoroscopy utilized during orthopedic surgery. Dictated by: Dictated on workstation # [id number]
--- NOTE | 2022-11-18 20:27 | OPERATIVE REPORT ---
DATE OF SERVICE: 11/18/2022 PREOPERATIVE DIAGNOSIS: Closed displaced right intertrochanteric femur fracture. POSTOPERATIVE DIAGNOSIS: Closed displaced right intertrochanteric femur fracture. PROCEDURE: Right hip intramedullary nail. SURGEON: Waldo Ramos MD ANALYTICS INTERN: Tae Coats, who assisted throughout the procedure and closed the incisions. ANESTHESIA: General endotracheal by Tanna Lewis CRNA. ESTIMATED BLOOD LOSS: 100 mL DRAINS: None. COMPLICATIONS: None. POSTOPERATIVE PLAN: Weightbearing as tolerated, right lower extremity. MATERIALS: Depuy Synthes TFN short nail, 11 mm in diameter with 105 mm blade. The patient was transferred to recovery room awake and stable condition. STATEMENT OF MEDICAL NECESSITY: The patient is a 77-year-old female who fell yesterday and was found to have an intertrochanteric femur fracture. In order to maintain her active lifestyle, the patient elected to proceed with surgical intervention. DESCRIPTION OF PROCEDURE: After risks and benefits of the procedure were discussed and questions were answered and informed consent was signed and placed on the chart, the operative site was confirmed in the preoperative holding area initialed by surgeon. The patient was then transferred to the operating room and after adequate levels of general endotracheal anesthetic were obtained, a timeout was called, confirming the operative site. The patient was carefully placed on the fracture table and gentle longitudinal traction was applied. Fluoroscopy in AP and lateral planes revealed anatomic alignment of the fracture. The right hip and lower extremity were prepped and draped in the usual sterile fashion. An incision was made from the greater trochanter extending proximally. The guidewire was passed under fluoroscopic visualization into the femoral canal. This was felt to be well positioned in both the AP and lateral planes and then overreamed proximally. An 11 mm nail was placed through a percutaneous incision, the guidewire was passed into the femoral head and again AP and lateral planes revealed good placement. This was then overdrilled laterally and a 105 mm blade was placed. The distal locking screw was then placed through the same percutaneous incision with excellent purchase obtained. Fluoroscopy in AP and lateral planes revealed well placed hardware, anatomic reduction of the fracture. The wounds were copiously irrigated and #1 Vicryl was used to close the IT band proximally and 2-0 Vicryl was used for the subcutaneous layer in both incisions and afsaneh were used for both incisions. Incisions were infiltrated with plain Marcaine. A soft dressing was applied and the patient was transferred to the recovery room awake and in stable condition. Job ID: [id number] DocumentID: [id number] Dictated Date: 11/18/2022 11:15:24 Warp Dresser Date: 11/18/2022 20:25:00 Dictated By: WALDO RAMOS MD
[2022-11-18] MEDS: traZODone 150 MG (DESYREL) TABLET PO SCH (21:13)
[2022-11-18] MEDS: MONTELUKAST 10 MG (SINGULAIR) TAB PO SCH (21:13)
[2022-11-19] MEDS: ceFAZolin INJECTION 2,000 MG in NS (IVPB) 50 ML IV SCH (01:48)
[2022-11-19 03:19] VITALS: BP 134/67
[2022-11-19] MEDS: LACTATED RINGERS 1,000 ML IV SCH ×2 (03:19→17:22)
[2022-11-19 05:49] LABS: HEMOGLOBIN 9.4 g/dL (11.5-16.0)
[2022-11-19 07:41] VITALS: BP 143/67
--- NOTE | 2022-11-19 07:57 | Progress Note ---
Standard Progress Note Progress Notes/Assess & Plan Date Seen by a Provider: November 19, 2022 Time Seen by a Provider: 07:48 Progress/Assessment & Plan no complaints Laboratory Tests Test 11/19/22 05:05 Range/Units Hemoglobin 9.4 L 11.5-16.0 g/dL Hematocrit 29 L 35-52 % Vital Signs Date Time Temp Pulse Resp B/P (MAP) Pulse Ox O2 Delivery O2 Flow Rate FiO2 11/19/22 07:41 36.8 75 18 143/67 (92) 97 Nasal Cannula 1.00 11/19/22 03:19 36.6 75 18 134/67 (89) 97 Nasal Cannula 2.00 11/19/22 01:00 70 11/18/22 23:11 36.0 92 18 118/64 (82) 98 Nasal Cannula 2.00 11/18/22 21:15 Room Air 11/18/22 19:57 36.3 68 16 125/77 (93) 98 Nasal Cannula 2.00 11/18/22 19:00 77 11/18/22 16:05 36.4 61 16 140/67 (91) 96 Nasal Cannula 2.00 11/18/22 16:05 58 11/18/22 12:20 Nasal Cannula 2.00 11/18/22 12:10 36.6 12 125/81 (96) 98 Nasal Cannula 2.00 11/18/22 12:05 Room Air 11/18/22 12:00 16 131/68 (89) 95 Room Air 11/18/22 12:00 35.9 62 19 144/65 (91) 98 Nasal Cannula 2.00 11/18/22 11:50 12 122/75 (91) 100 OxyMask 8 11/18/22 11:50 OxyMask 8 11/18/22 11:40 12 125/67 (86) 99 OxyMask 8 11/18/22 11:35 OxyMask 8 11/18/22 11:30 12 142/63 (89) 100 OxyMask 8 11/18/22 11:19 36.5 12 118/70 (86) 100 OxyMask 8 11/18/22 11:19 OxyMask 8 11/18/22 08:00 36.4 63 19 155/74 (101) 96 Room Air I & O 11/19/22 07:00 Intake Total 2500 ml Output Total 875 ml Balance 1625 ml R hip dressing intact intact DF and PF of toes and ankle sensation intact throughout s/p I M carlos right hip PT/OT JUAN RAMOS MD November 19, 2022 07:57
[2022-11-19] MEDS ORDERED: ENOXAPARIN 40 MG/0.4 ML (LOVENOX) SYR SC SCH (08:00)
[2022-11-19] MEDS: CELECOXIB 100 MG (CeleBREX) CAP PO SCH ×2 (08:17→20:46)
[2022-11-19] MEDS: meTOprolol TARTRATE 50 MG (LOPRESSOR) TAB PO SCH ×2 (08:17→20:47)
[2022-11-19] MEDS: PANTOPRAZOLE 40 MG (PROTONIX) TAB PO SCH (08:17)
[2022-11-19] MEDS: dilTIAZem120 MG (CARDIZEM CD) CAP PO SCH (08:17)
--- NOTE | 2022-11-19 08:26 | Cardiology Progress Note ---
Subjective Date Seen by Provider: November 19, 2022 Time Seen by Provider: 08:23 Subjective/Events-last exam Patient was seen at bedside, sitting comfortably. Feeling better. Still complaining of fatigue Review of Systems General: No Chills, No Night Sweats; Fatigue; No Malaise, No Appetite, No Other HEENT: No Head Aches, No Visual Changes, No Eye Pain, No Ear Pain, No Dysphasia, No Sinus Congestion, No Post Nasal Drip, No Sore Throat, No Other Pulmonary: No Dyspnea, No Cough, No Pleuritic Chest Pain, No Other Cardiovascular: Edema; No: Chest Pain, Palpitations, Orthopnea, Paroxysmal Noc. Dyspnea, Lt Headedness, Other Objective-Cardiology Exam Last Set of Vital Signs Vital Signs 11/19/22 07:41 Temp 36.8 Pulse 75 Resp 18 B/P (MAP) 143/67 (92) Pulse Ox 97 O2 Delivery Nasal Cannula O2 Flow Rate 1.00 I&O Intake and Output 11/19/22 00:00 Intake Total 1400 ml Output Total 825 ml Balance 575 ml Intake Oral 400 ml IV Total 1000 ml Output Urine Total 725 ml Estimated Blood Loss 100 ml General: Alert, Oriented X3, Cooperative HEENT: Atraumatic, PERRLA Neck: Supple, No JVD Lungs: Clear to Auscultation, Normal Air Movement Heart: Normal S1, Normal S2, Other (irregularly irregular) Abdomen: Soft, No Tenderness Extremities: No Clubbing Skin: No Rashes Neuro: Normal Speech, Cranial Nerves 3-12 NL Psych/Mental Status: Mental Status NL, Mood NL Results Lab Laboratory Tests 11/19/22 05:05 A/P-Cardiology Admission Diagnosis Syncope Atrial fibrillation Hip fracture Chest pain Assessment/Plan Syncope, unknown etiology, most probably labile hypertension. Resulted in hip fracture Patient is being monitored on telemetry Has a loop monitor implant was extracted at the November 18, [address] a new device in. Right-sided hip fracture scheduled for hip surgery on November 18, 2022. Receiving physical therapy. Chest pain, nonspecific etiology, has been having chronic chest pain on and off. Continue to monitor Permanent atrial fibrillation with variable response, had an episode of aberrant conduction, seen by Dr. Emerson, had a loop recorder implanted in November 2018, having multiple episodes of atrial fibrillation and pauses. Continue to monitor [id number] score is 3, yearly risk of stroke without oral anticoagulation is 3.2 percent. Patient is maintained on Xarelto. Had previous trauma to the face secondary to falling, Stop Xarelto when deemed reasonable by the surgeon Episodes of dizziness with exertion, reporting worsening symptoms recently, has history of atrial fibrillation and questionable sinus node dysfunction Continue to monitor Coronary artery disease, cardiac catheterization was done in August 2015 showing mild ectasia in the proximal LAD with slow flow in the proximal LAD at otherwise small vessel disease no significant obstructive disease. Had another cardiac catheterization done in March 2019 after having an abn ormal stress test showing coronary ectasia, no change compared to 2016. Currently EKG did not show any acute abnormality on November 17, 2022. Continue to monitor 2D Echo done on November 18, 2022 with ejection fraction 60 to 65%, PA pressure 40 to 45 mmHg, mild mitral regurgitation moderate tricuspid regurgitation. Mild bilateral nonobstructive carotid artery stenosis, continue to monitor COPD, obstructive sleep apnea, seen by Dr. Boston in the past. Managed by primary care physician Hypertension, better controlled Monitor blood pressure Hyperlipidemia, had lab work done with mild lab. I will obtain copy of the results Ovarian cancer, had abdominal extensive surgery, recurrent malignancy, Moder ately differentiated carcinoma although very status post total abdominal hysterectomy/BSO and partial colectomy in August 2020, CEA 125 is elevated, CEA normal, receiving carbo plus Taxol. Reporting repeat scans showing improvement. Hypothyroidism managed by primary care physician Prediabetes, patient was educated on diet and weight loss. Obesity, BMI 39, we discussed weight loss and diet ANSON POMPA MD November 19, 2022 08:26
--- NOTE | 2022-11-19 11:06 | Physical Therapy Daily Note ---
PT Daily Note-Current Subjective Patient agrees to PT. Spouse present. Pain Numeric Pain Scale: 8 Location: Right Location Body Site: Hip Pain Description: Acute Section J - Health Conditions 1. Rarely or not at all 2. Occasionally 3. Frequently 4. Almost constantly 8. Unable to answer Pain Effect on Sleep: 2 Pain Interference with Therapy: 2 Pain Interference w/Day-to-Day: 2 Mental Status Patient Orientation: Person, Time, Situation Attachments: Dominique Catheter, IV Transfers SCALE: Activities may be completed with or without assistive devices. 7-Eukvzhaumw-yvbjyru completes the activity by him/herself with no assistance from a helper. 5-Set-up or Clean-up Assistance-helper sets up or cleans up; patient completes activity. [place] assists only prior to or following the activity. 4-Supervision or Touching Assistance-helper provides verbal cues and/or touching/steadying and/or contact guard assistance as patient completes activity. Assistance may be provided throughout the activity or intermittently. 3-Partial/Moderate Assistance-helper does LESS THAN HALF the effort. [place] lifts, holds or supports trunk or limbs, but provides less than half the effort. 2-Substantial/Maximal Assistance-helper does MORE THAN HALF the effort. [place] lifts or holds trunk or limbs and provides more than half the effort. 3-Hllkcdeii-cmfiti does ALL the effort. Patient does none of the effort to complete the activity. Or, the assistance of 2 or more helpers is required for the patient to complete the activity. If activity was not attempted, code reason: 7-Patient Refused. 9-Not Applicable-not attempted and the patient did not perform the activity before the current illness, exacerbation or injury. 10-Not Attempted due to Environmental Limitations-(lack of equipment, weather restraints, etc.). 88-Not Attempted due to Medical Conditions or Safety Concerns. Lying to Sitting/Side of Bed(Q: 3 Sit to Stand (QC): 3 Chair/All-mu-Ptikj Xfer(QC): 3 Weight Bearing Right Lower Extremity: Right Partial Weight Bearing Left Lower Extremity: Left Full Weight Bearing Gait Training Distance: 10' Walk 10 feet (QC): 3 Gait Assistive Device: FWW patient is able to maintain PWB right LE Exercises Supine Ex: Ankle pumps, Quad Set, Heel Slides, Straight leg raise Supine Reps: 12 Seated Therapy Exercises: Long arc quads Standing Reps: 15 Assessment Patient up in recliner with needs met. Patient requires minimal assist with all mobility. She is able to maintain PWB right LE. PT Lieutenant Firefighter Goals Jail Goals PT Jail Goals Time Frame: December 16, 2022 Roll Left & Right (QC): 4 Sit to Lying (QC): 4 Lying-Sitting on Side/Bed(QC): 4 Sit to Stand (QC): 4 Chair/Rfi-nv-Hgpdw Xfer(QC): 4 Toilet Transfer (QC): 4 Does the Patient Walk: Yes Walk 10 feet (QC): 3 Walk 50ft with 2 Turns (QC): 3 Walk 150 ft (QC): 3 1 Step (curb) (QC): 3 4 Steps (QC): 3 PT Plan Treatment/Plan Treatment Plan: Continue Plan of Care Treatment Plan: Bed Mobility, Education, Functional Activity Luzma, Functional Strength, Group Therapy, Gait, Safety, Therapeutic Exercise, Transfers Treatment Duration: December 16, 2022 Frequency: 11 times per week Estimated Hrs Per Day: .25 hour per day Patient and/or Family Agrees t: Yes Time Time In: 735 Time Out: 758 DATE: November 19, 2022 Total Billed Treatment Time: 23 Total Billed Treatment 1 visit EX 14 min GT 9 min IAN KEYS PT November 19, 2022 11:06
[2022-11-19 11:22] VITALS: BP 139/65
--- NOTE | 2022-11-19 11:55 | Progress Note - Hospitalist ---
Subjective HPI/CC On Admission Date Seen by Provider: November 19, 2022 Pt is a 77yoCF who presented to the ER due to hip pain. She gives a limited and sometimes varyign history. She has no family at bedside and when asked what brought her to the hospital she stated and ambulance and needed clarification to further elaborate on why an ambulance was summoned. She told me she has been getting dizzy recently but has not had any syncopal episodes until yesterday. 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 She then couldn't get up and walk due to the pain and so they called the ambulance. She was found to have an right intertrochanteric hip fractuce and admitted for operative repair. Subjective/Events-last exam Pt reports doing well. Pain controlled. Up in chair. Discussed options for DC planing from going home with HH all the way to needing a SNF. She is most interested in IRF if able. Objective Exam Vital Signs Vital Signs Date Time Temp Pulse Resp B/P (MAP) Pulse Ox O2 Delivery O2 Flow Rate FiO2 11/19/22 11:22 36.6 73 18 139/65 (89) 96 Nasal Cannula 1.00 Capillary Refill : Less Than 3 Seconds General Appearance: No Apparent Distress, Chronically ill Respiratory: Lungs Clear, No Accessory Muscle Use Cardiovascular: Regular Rate, Rhythm, No Murmur Gastrointestinal: Normal Bowel Sounds, Soft Neurologic/Psychiatric: Alert, Oriented x3 Results/Procedures Lab Laboratory Tests 11/19/22 05:05 Patient resulted labs reviewed. Imaging: Reviewed Imaging Report Assessment/Plan Assessment and Plan Assess & Plan/Chief Complaint Right hip fracture Dr Sun consulted, appreciate recs POD #1 Pain regimen Bowel regimen PT/OT statement services representative consult for discharge planning (SNF vs IRF vs HH) IRF eval placed Syncope A fib HTN CAD HLD Gives varying history of syncope Has loop recorder but battery depleted Nutrition Teacher for orthostasis post op Cardiology consulted, appreciate recs Hypothyroidism Continue home meds DVT ppx: Xarelto when ok with surgery Diagnosis/Problems Diagnosis/Problems (1) Closed intertrochanteric fracture of right hip Status: Acute Qualifiers: Encounter type: initial encounter Fracture alignment: displaced Qualified Codes: S72.141A - Displaced intertrochanteric fracture of right femur, initial encounter for closed fracture (2) Hypertension Status: Chronic (3) Hyperlipidemia Status: Chronic (4) Hypothyroidism Status: Chronic (5) Anticoagulated Status: Acute (6) Fall on same level Status: Acute Qualifiers: Encounter type: initial encounter Qualified Codes: W18.30XA - Fall on same level, unspecified, initial encounter (7) Syncope Status: Acute Qualifiers: Syncope type: unspecified Qualified Codes: R55 - Syncope and collapse (8) HX OVARIAN CANCER EXTENDING INTO COLON (9) DVT prophylaxis Status: Acute (10) Atrial fibrillation Status: Chronic ROBE CROFT MD November 19, 2022 11:55
[2022-11-19] MEDS: morphine INJ 10 MG/ML 1ML (SYR OR VIAL) IVP PRN (13:06)
--- NOTE | 2022-11-19 14:18 | Physical Therapy Daily Note ---
PT Daily Note-Current Subjective Patient agrees to PT. Pain Numeric Pain Scale: 8 Location: Right Location Body Site: Hip Pain Description: Acute Section J - Health Conditions 1. Rarely or not at all 2. Occasionally 3. Frequently 4. Almost constantly 8. Unable to answer Pain Effect on Sleep: 2 Pain Interference with Therapy: 2 Pain Interference w/Day-to-Day: 2 Mental Status Patient Orientation: Person, Time, Situation Transfers SCALE: Activities may be completed with or without assistive devices. 1-Noguoogfgd-lgvfffl completes the activity by him/herself with no assistance from a helper. 5-Set-up or Clean-up Assistance-helper sets up or cleans up; patient completes activity. [place] assists only prior to or following the activity. 4-Supervision or Touching Assistance-helper provides verbal cues and/or touching/steadying and/or contact guard assistance as patient completes activity. Assistance may be provided throughout the activity or intermittently. 3-Partial/Moderate Assistance-helper does LESS THAN HALF the effort. [place] lifts, holds or supports trunk or limbs, but provides less than half the effort. 2-Substantial/Maximal Assistance-helper does MORE THAN HALF the effort. [place] lifts or holds trunk or limbs and provides more than half the effort. 6-Ftjdcsxyj-anxhcf does ALL the effort. Patient does none of the effort to complete the activity. Or, the assistance of 2 or more helpers is required for the patient to complete the activity. If activity was not attempted, code reason: 7-Patient Refused. 9-Not Applicable-not attempted and the patient did not perform the activity before the current illness, exacerbation or injury. 10-Not Attempted due to Environmental Limitations-(lack of equipment, weather restraints, etc.). 88-Not Attempted due to Medical Conditions or Safety Concerns. Sit to Lying (QC): 3 Lying to Sitting/Side of Bed(Q: 3 Sit to Stand (QC): 3 Weight Bearing Right Lower Extremity: Right Partial Weight Bearing Left Lower Extremity: Left Full Weight Bearing Gait Training Distance: 30' Walk 10 feet (QC): 3 Gait Assistive Device: FWW VC's for body placement in FWW/slow antalgic gait sequence Exercises Supine Ex: Ankle pumps, Quad Set, Heel Slides Supine Reps: 15 Seated Therapy Exercises: Long arc quads Seated Reps: 15 Assessment Patient progressing very slowly with slight improve in gait distance. Continues to require VC's and minimal assist to maintain PWB right LE. PT Mortgage Protection Sales Goals Correction Goals PT Correction Goals Time Frame: December 16, 2022 Roll Left & Right (QC): 4 Sit to Lying (QC): 4 Lying-Sitting on Side/Bed(QC): 4 Sit to Stand (QC): 4 Chair/Igz-yu-Aheko Xfer(QC): 4 Toilet Transfer (QC): 4 Does the Patient Walk: Yes Walk 10 feet (QC): 3 Walk 50ft with 2 Turns (QC): 3 Walk 150 ft (QC): 3 1 Step (curb) (QC): 3 4 Steps (QC): 3 PT Plan Treatment/Plan Treatment Plan: Continue Plan of Care Treatment Plan: Bed Mobility, Education, Functional Activity Lu[place], Functional Strength, Group Therapy, Gait, Safety, Therapeutic Exercise, Transfers Treatment Duration: December 16, 2022 Frequency: 11 times per week Estimated Hrs Per Day: .25 hour per day Patient and/or Family Agrees t: Yes Time Time In: 1341 Time Out: 1404 DATE: November 19, 2022 Total Billed Treatment Time: 23 Total Billed Treatment 1 visit EX 10 min GT 13 min IAN KEYS PT November 19, 2022 14:18
[2022-11-19 15:30] VITALS: BP 124/80
[2022-11-19] MEDS: RIVAROXABAN 20 MG TABLET (XARELTO) PO SCH (17:22)
[2022-11-19 19:30] VITALS: BP 155/69
[2022-11-19] MEDS: traZODone 150 MG (DESYREL) TABLET PO SCH (20:46)
[2022-11-19] MEDS: MONTELUKAST 10 MG (SINGULAIR) TAB PO SCH (20:47)
[2022-11-19 23:32] VITALS: BP 116/58
[2022-11-20 03:20] VITALS: BP 116/62
[2022-11-20 05:31] LABS: HEMOGLOBIN 7.6 g/dL (11.5-16.0)
[2022-11-20] MEDS: LACTATED RINGERS 1,000 ML IV SCH ×2 (06:24→20:37)
--- NOTE | 2022-11-20 06:53 | Progress Note ---
Standard Progress Note Progress Notes/Assess & Plan Date Seen by a Provider: November 20, 2022 Time Seen by a Provider: 06:45 Progress/Assessment & Plan no complaints Laboratory Tests Test 11/19/22 05:05 Range/Units Hemoglobin 9.4 L 11.5-16.0 g/dL Hematocrit 29 L 35-52 % Vital Signs Date Time Temp Pulse Resp B/P (MAP) Pulse Ox O2 Delivery O2 Flow Rate FiO2 11/19/22 07:41 36.8 75 18 143/67 (92) 97 Nasal Cannula 1.00 11/19/22 03:19 36.6 75 18 134/67 (89) 97 Nasal Cannula 2.00 11/19/22 01:00 70 11/18/22 23:11 36.0 92 18 118/64 (82) 98 Nasal Cannula 2.00 11/18/22 21:15 Room Air 11/18/22 19:57 36.3 68 16 125/77 (93) 98 Nasal Cannula 2.00 11/18/22 19:00 77 11/18/22 16:05 36.4 61 16 140/67 (91) 96 Nasal Cannula 2.00 11/18/22 16:05 58 11/18/22 12:20 Nasal Cannula 2.00 11/18/22 12:10 36.6 12 125/81 (96) 98 Nasal Cannula 2.00 11/18/22 12:05 Room Air 11/18/22 12:00 16 131/68 (89) 95 Room Air 11/18/22 12:00 35.9 62 19 144/65 (91) 98 Nasal Cannula 2.00 11/18/22 11:50 12 122/75 (91) 100 OxyMask 8 11/18/22 11:50 OxyMask 8 11/18/22 11:40 12 125/67 (86) 99 OxyMask 8 11/18/22 11:35 OxyMask 8 11/18/22 11:30 12 142/63 (89) 100 OxyMask 8 11/18/22 11:19 36.5 12 118/70 (86) 100 OxyMask 8 11/18/22 11:19 OxyMask 8 11/18/22 08:00 36.4 63 19 155/74 (101) 96 Room Air I & O 11/19/22 07:00 Intake Total 2500 ml Output Total 875 ml Balance 1625 ml R hip dressing intact intact DF and PF of toes and ankle sensation intact throughout s/p I M carlos right hip PT/OT Final Diagnosis no complaints Vital Signs Date Time Temp Pulse Resp B/P (MAP) Pulse Ox O2 Delivery O2 Flow Rate FiO2 11/20/22 03:20 36.5 59 20 116/62 (80) 94 Room Air 11/20/22 01:00 70 11/19/22 23:32 36.0 68 20 116/58 (77) 99 Nasal Cannula 2.00 11/19/22 20:50 Room Air 11/19/22 19:30 36.8 75 20 155/69 (97) 97 Room Air 11/19/22 19:00 80 11/19/22 15:30 36.7 80 20 124/80 (95) 95 Room Air 11/19/22 12:42 88 11/19/22 11:22 36.6 73 18 139/65 (89) 96 Nasal Cannula 1.00 11/19/22 10:07 Nasal Cannula 1.50 11/19/22 08:00 Room Air 11/19/22 07:41 36.8 75 18 143/67 (92) 97 Nasal Cannula 1.00 11/19/22 07:00 67 I & O 11/20/22 07:00 Intake Total 1960 ml Output Total 950 ml Balance 1010 ml Laboratory Tests Test 11/20/22 05:20 Range/Units Hemoglobin 7.6 L 11.5-16.0 g/dL Hematocrit 23 L 35-52 % Right hip incisions clean and dry no calf tenderness neg Kieran's s/p R hip IM carlos PT/OT IRU JUAN Jefferson [place], MD November 20, 2022 06:53
[2022-11-20 07:20] VITALS: BP 134/57
[2022-11-20] MEDS: CELECOXIB 100 MG (CeleBREX) CAP PO SCH ×2 (08:21→20:37)
[2022-11-20] MEDS: PANTOPRAZOLE 40 MG (PROTONIX) TAB PO SCH (08:21)
--- NOTE | 2022-11-20 08:22 | Physical Therapy Daily Note ---
PT Daily Note-Current Subjective Patient agrees to PT. Pain Numeric Pain Scale: 5-Moderate Pain Location: Right Location Body Site: Hip Pain Description: Acute Section J - Health Conditions 1. Rarely or not at all 2. Occasionally 3. Frequently 4. Almost constantly 8. Unable to answer Pain Effect on Sleep: 2 Pain Interference with Therapy: 2 Pain Interference w/Day-to-Day: 2 Mental Status Patient Orientation: Person, Situation Attachments: Dominique Catheter, IV Transfers SCALE: Activities may be completed with or without assistive devices. 9-Psdiqhpnmu-qdehhxk completes the activity by him/herself with no assistance from a helper. 5-Set-up or Clean-up Assistance-helper sets up or cleans up; patient completes activity. [place] assists only prior to or following the activity. 4-Supervision or Touching Assistance-helper provides verbal cues and/or touching/steadying and/or contact guard assistance as patient completes activity. Assistance may be provided throughout the activity or intermittently. 3-Partial/Moderate Assistance-helper does LESS THAN HALF the effort. [place] lif ts, holds or supports trunk or limbs, but provides less than half the effort. 2-Substantial/Maximal Assistance-helper does MORE THAN HALF the effort. [place] lifts or holds trunk or limbs and provides more than half the effort. 0-Ltsuxnwlp-nlvswy does ALL the effort. Patient does none of the effort to complete the activity. Or, the assistance of 2 or more helpers is required for the patient to complete the activity. If activity was not attempted, code reason: 7-Patient Refused. 9-Not Applicable-not attempted and the patient did not perform the activity before the current illness, exacerbation or injury. 10-Not Attempted due to Environmental Limitations-(lack of equipment, weather restraints, etc.). 88-Not Attempted due to Medical Conditions or Safety Concerns. Lying to Sitting/Side of Bed(Q: 3 Sit to Stand (QC): 3 Chair/Mqr-yg-Yztzq Xfer(QC): 3 Weight Bearing Right Lower Extremity: Right Partial Weight Bearing Left Lower Extremity: Left Full Weight Bearing Has to be reminded for PWB right LE Gait Training Distance: 30' Walk 10 feet (QC): 3 Walk 50 ft with 2 Turns(QC): 88 Gait Assistive Device: FWW very slow, minimal foot clearance with continuous VC's for body placement in FWW Exercises Supine Ex: Ankle pumps, Quad Set, Heel Slides, Straight leg raise Supine Reps: 12 (AAROM right LE) Seated Therapy Exercises: Long arc quads Assessment Patient requires continuous VC's for body placement in FWW. Patient requires continuous reminders of PWB right LE. Patient up in recliner with needs met. PT Retirement Goals Retirement Goals PT Retirement Goals Time Frame: December 16, 2022 Roll Left & Right (QC): 4 Sit to Lying (QC): 4 Lying-Sitting on Side/Bed(QC): 4 Sit to Stand (QC): 4 Chair/Caw-hl-Kqjuy Xfer(QC): 4 Toilet Transfer (QC): 4 Does the Patient Walk: Yes Walk 10 feet (QC): 3 Walk 50ft with 2 Turns (QC): 3 Walk 150 ft (QC): 3 1 Step (curb) (QC): 3 4 Steps (QC): 3 PT Plan Treatment/Plan Treatment Plan: Continue Plan of Care Treatment Plan: Bed Mobility, Education, Functional Activity Luzma, Functional Strength, Group Therapy, Gait, Safety, Therapeutic Exercise, Transfers Treatment Duration: December 16, 2022 Frequency: 11 times per week Estimated Hrs Per Day: .25 hour per day Patient and/or Family Agrees t: Yes Time Time In: 750 Time Out: 814 DATE: November 20, 2022 Total Billed Treatment Time: 24 Total Billed Treatment 1 visit EX 11 min GT 13 min IAN KEYS PT November 20, 2022 08:22
[2022-11-20] MEDS: dilTIAZem120 MG (CARDIZEM CD) CAP PO SCH (08:30)
[2022-11-20] MEDS: meTOprolol TARTRATE 50 MG (LOPRESSOR) TAB PO SCH ×2 (08:30→20:37)
--- NOTE | 2022-11-20 09:05 | Cardiology Progress Note ---
Subjective Date Seen by Provider: November 20, 2022 Time Seen by Provider: 08:53 Subjective/Events-last exam Patient was seen at bedside, sitting comfortably, complaining of pain at the surgical site. Objective-Cardiology Exam Last Set of Vital Signs Vital Signs 11/20/22 07:20 Temp 36.8 Pulse 56 Resp 18 B/P (MAP) 134/57 (82) Pulse Ox 95 O2 Delivery Nasal Cannula O2 Flow Rate 1.00 I&O Intake and Output 11/20/22 00:00 Intake Total 2060 ml Output Total 850 ml Balance 1210 ml Intake Oral 1010 ml IV Total 1050 ml Output Urine Total 850 ml # Bowel Movements 1 General: Alert, Oriented X3, Cooperative HEENT: Atraumatic, PERRLA Neck: Supple, No JVD Lungs: Clear to Auscultation, Normal Air Movement Heart: Normal S1, Normal S2, Other (irregularly irregular) Abdomen: Soft, No Tenderness Extremities: No Clubbing Skin: No Rashes Neuro: Normal Speech, Cranial Nerves 3-12 NL Psych/Mental Status: Mental Status NL, Mood NL Results Lab Laboratory Tests 11/20/22 05:20 A/P-Cardiology Admission Diagnosis Syncope Atrial fibrillation Hip fracture Chest pain Assessment/Plan Syncope, unknown etiology, most probably labile hypertension. Resulted in hip fracture Patient is being monitored on telemetry Has a loop monitor implant was extracted at the November 18, [address] a new device Right-sided hip fracture scheduled for hip surgery on November 18, 2022. Receiving physical therapy. Chest pain, nonspecific etiology, has been having chronic chest pain on and off. Continue to monitor Permanent atrial fibrillation with variable response, had an episode of aberrant conduction, seen by Dr. Emerson, had a loop recorder implanted in November 2018, having multiple episodes of atrial fibrillation and pauses. Continue to monitor [id number] score is 3, yearly risk of stroke without oral anticoagulation is 3.2 percent. Patient is maintained on Xarelto. Had previous trauma to the face secondary to falling, Stop Xarelto when deemed reasonable by the surgeon Episodes of dizziness with exertion, reporting worsening symptoms recently, has history of atrial fibrillation and questionable sinus node dysfunction Continue to monitor Coronary artery disease, cardiac catheterization was done in August 2015 showing mild ectasia in the proximal LAD with slow flow in the proximal LAD at otherwise small vessel disease no significant obstructive disease. Had another cardiac catheterization done in March 2019 after having an abnormal stress test showing coronary ectasia, no change compared to 2016. Currently EKG did not show any acute abnormality on November 17, 2022. Continue to monitor 2D Echo done on November 18, 2022 with ejection fraction 60 to 65%, PA pressure 40 to 45 mmHg, mild mitral regurgitation moderate tricuspid regurgitation. Mild bilateral nonobstructive carotid artery stenosis, continue to monitor COPD, obstructive sleep apnea, seen by Dr. Boston in the past. Managed by primary care physician Hypertension, better controlled Monitor blood pressure Hyperlipidemia, had lab work done with mild lab. I will obtain copy of the results Ovarian cancer, had abdominal extensive surgery, recurrent malignancy, Moderately differentiated carcinoma although very status post total abdominal hysterectomy/BSO and partial colectomy in August 2020, CEA 125 is elevated, CEA normal, receiving carbo plus Taxol. Reporting repeat scans showing improvement. Hypothyroidism managed by primary care physician Prediabetes, patient was educated on diet and weight loss. Obesity, BMI 39, we discussed weight loss and diet ANSON POMPA MD November 20, 2022 09:05
[2022-11-20] MEDS: HYDROcodone/APAP 5 MG/325 MG (LORTAB) TAB PO PRN ×2 (09:48→20:37)
--- NOTE | 2022-11-20 11:30 | Occupational Therapy Eval ---
OT Evaluation-General/PLF Medical Diagnosis Admission Date November 17, 2022 at 17:15 Medical Diagnosis: Right hip fracture Onset Date: November 17, 2022 Therapy Diagnosis Therapy Diagnosis: weakness/confusion Height/Weight Height (Feet): 5 Height (Inches): 7.00 Weight (Pounds): 235 Weight (Ounces): 11.2 Precautions Precautions/Isolations: Fall Prevention, Standard Precautions Weight Bear Status Weight Bearing Restriction: Partial Weight Bearing Location Restriction: R LE Referral Physician: Dr. Sun Referral Reason: Activity Tolerance, Self Care, Evaluation/Treatment, Strengthening/ROM Medical History Pertinent Medical History: Dementia Current History s/p fall at home, inconsistent events leading up to fall and admission interv iew, patient spouse present to verify interview Social History Home: Single Level Current Living Status: Other Family Entry Into Home: Stairs With Railing Steps Into Home: 2 ADL-Prior Level of Function SCALE: Activities may be completed with or without assistive devices. 2-Adaxvbqamd-tcafznu completes the activity by him/herself with no assistance from a helper. 5-Set-up or Clean-up Assistance-helper sets up or cleans up; patient completes activity. [place] assists only prior to or following the activity. 4-Supervision or Touching Assistance-helper provides verbal cues and/or touching/steadying and/or contact guard assistance as patient completes activity. Assistance may be provided throughout the activity or intermittently. 3-Partial/Moderate Assistance-helper does LESS THAN HALF the effort. [place] lifts, holds or supports trunk or limbs, but provides less than half the effort. 2-Substantial/Maximal Assistance-helper does MORE THAN HALF the effort. [place] lifts or holds trunk or limbs and provides more than half the effort. 7-Vjidbgqpy-konmwo does ALL the effort. Patient does none of the effort to complete the activity. Or, the assistance of 2 or more helpers is required for the patient to complete the activity. If activity was not attempted, code reason: 7-Patient Refused. 9-Not Applicable-not attempted and the patient did not perform the activity before the current illness, exacerbation or injury. 10-Not Attempted due to Environmental Limitations-(lack of equipment, weather restraints, etc.). 88-Not Attempted due to Medical Conditions or Safety Concerns. ADL PLOF Comments Patient spouse is slow to responses as well. Self Care: Needed Some Help Functional Cognition: Needed Some Help DME/Equipment Comments Unable to decifer DME in home, spouse drives. Drive Self: No OT Current Status Subjective Resting in bed, alarm required for safety, agreeable to OT and assist to bathroom Mental Status/Objective Patient Orientation: Person, Confused, Situation (inconsistent steps to events leading into hospital) Current Upper Extremity ROM BUE ROM WFLS Upper Extremity Coordination unable to coordination use of BUE to extend and offload RLE w/ mobility and poor placement of FWW, OT repeats positioning the FWW for safety Upper Extremity Strength +3/5 BUEs ADL-Treatment Eating (QC): 6 Oral Hygiene (QC): 5 (set up in sitting) Shower/Bathe Self (QC): 88 (sponge bathing recommended) Upper Body Dressing (QC): 4 Lower Body Dressing (QC): 2 On/Off Footwear (QC): 1 Toileting Hygiene (QC): 2 Spouse remains in room w/ patient, patient instructed to use call cord for assistance when completing BM Other Treatments Extensive UE education for use of FWW w/ offloading and mobility. Patient continues to forward flex posture, pushing FWW beyond safe distance to use for ambulation, patient tightly critical care nurse FWW however does not extend BUEs for offlo ading of LE. Education OT Patient Education: Correct positioning, Exercise program, Instructions to caregiver, Modified ADL techniques, Progress toward Goal/Update tx plan, Purpose of tx/functional activities, Reviewed precautions, Rehab process, Safety issues, Transfer techniques, Use of adapted equipment Teaching Recipient: Patient, Significant Other Teaching Methods: Demonstration, Discussion Response to Teaching: Unable to Return Demonstration, Unable to Comprehend, Reinforcement Needed OT Assisted Goals Assisted Goals Eating (QC): 6 Oral Hygiene (QC): 6 Toileting Hygiene (QC): 5 Shower/Bathe Self (QC): 4 Upper Body Dressing (QC): 5 Lower Body Dressing (QC): 4 On/Off Footwear (QC): 4 1=Demonstrate adherence to instructed precautions during ADL tasks. 2=Patient will verbalize/demonstrate understanding of assistive devices/modifications for ADL. 3=Patient will improve strength/tolerance for activity to enable patient to perform ADL's. OT Education/Plan Problem List/Assessment Assessment: Decreased Activ Tolerance, Decreased Safety Aware, Decreased UE Strength, Impaired Cognition, Impaired Coordination, Impaired Self-Care Skills Discharge Recommendations Plan/Recommendations: Continue POC Therapy Discharge Recommendati: Post Acute OT Treatment Plan/Plan of Care Treatment,Training & Education: Yes Patient would benefit from OT for education, treatment and training to promote independence in ADL's, mobility, safety and/or upper extremity function for ADL's. Plan of Care: ADL Retraining, Cognitive Retraining, Concurrent Therapy, Functional Mobility, Group Exercise/Act as Ind, UE Funct Exercise/Act Treatment Duration: November 28, 2022 Frequency: 3 times per week (3-5 times per week) Estimated Hrs Per Day: .25 hour per day Agreement: Yes Rehab Potential: Guarded Time Start Time: 09:13 Stop Time: 09:28 DATE: November 20, 2022 Total Time Billed (hr/min): 15 Billed Treatment Time EVM 15 min SALONI HART OT November 20, 2022 11:30
[2022-11-20 12:15] VITALS: BP 115/72
--- NOTE | 2022-11-20 13:22 | Progress Note - Hospitalist ---
Subjective HPI/CC On Admission Date Seen by Provider: November 20, 2022 Pt is a 77yoCF who presented to the ER due to hip pain. She gives a limited and sometimes varyign history. She has no family at bedside and when asked what brought her to the hospital she stated and ambulance and needed clarification to further elaborate on why an ambulance was summoned. She told me she has been getting dizzy recently but has not had any syncopal episodes until yesterday. (she told the ER and her audio visual coordinator she has had multiple syncopal episodes though.) She states she was standing up to go to the bathroom and suddenly felt dizzy and then passed out. She then couldn't get up and walk due to the pain and so they called the ambulance. She was found to have an right intertrochanteric hip fractuce and admitted for operative repair. Subjective/Events-last exam Pt reports doing well. No complaints. Pain controlled with pain medicine. Had a small BM this AM. Objective Exam Vital Signs Vital Signs Date Time Temp Pulse Resp B/P (MAP) Pulse Ox O2 Delivery O2 Flow Rate FiO2 11/20/22 12:15 36.7 86 18 115/72 (86) 97 Room Air 11/20/22 07:20 1.00 Capillary Refill : Less Than 3 Seconds General Appearance: No Apparent Distress, WD/WN, Obese Respiratory: Lungs Clear, No Respiratory Distress Cardiovascular: Regular Rate, Rhythm, No Murmur Neurologic/Psychiatric: Alert, Oriented x3 Results/Procedures Lab Laboratory Tests 11/20/22 05:20 Patient resulted labs reviewed. Imaging: Reviewed Imaging Report Assessment/Plan Assessment and Plan Assess & Plan/Chief Complaint Right hip fracture Dr Sun consulted, appreciate recs POD #2 Pain regimen Bowel regimen PT/OT IRF eval placed- awaiting insurance authorization Anemia Hgb down to 7.6 today No evidence of bleeding but will hold Xarelto this evening until AM dose Check Iron studies Syncope A fib HTN CAD HLD Gives varying history of syncope Has loop recorder but battery depleted [employer] Assistant for orthostasis post op Cardiology consulted, appreciate recs Hypothyroidism Continue home meds DVT ppx: Xarelto on hold for anemia Diagnosis/Problems Diagnosis/Problems (1) Closed intertrochanteric fracture of right hip Status: Acute Qualifiers: Encounter type: initial encounter Fracture alignment: displaced Qualified Codes: S72.141A - Displaced intertrochanteric fracture of right femur, initial encounter for closed fracture (2) Hypertension Status: Chronic (3) Hyperlipidemia Status: Chronic (4) Hypothyroidism Status: Chronic (5) Anticoagulated Status: Acute (6) Fall on same level Status: Acute Qualifiers: Encounter type: initial encounter Qualified Codes: W18.30XA - Fall on same level, unspecified, initial encounter (7) Syncope Status: Acute Qualifiers: Syncope type: unspecified Qualified Codes: R55 - Syncope and collapse (8) HX OVARIAN CANCER EXTENDING INTO COLON (9) DVT prophylaxis Status: Acute (10) Atrial fibrillation Status: Chronic ROBE CROFT MD November 20, 2022 13:22
--- NOTE | 2022-11-20 13:57 | Physical Therapy Daily Note ---
PT Daily Note-Current Subjective Patient agrees to PT. Pain Section J - Health Conditions 1. Rarely or not at all 2. Occasionally 3. Frequently 4. Almost constantly 8. Unable to answer Pain Effect on Sleep: 2 Pain Interference with Therapy: 2 Pain Interference w/Day-to-Day: 2 Mental Status Patient Orientation: Person Attachments: IV Transfers SCALE: Activities may be completed with or without assistive devices. 8-Kvnavnnxzr-lveachu completes the activity by him/herself with no assistance from a helper. 5-Set-up or Clean-up Assistance-helper sets up or cleans up; patient completes activity. [place] assists only prior to or following the activity. 4-Supervision or Touching Assistance-helper provides verbal cues and/or touching/steadying and/or contact guard assistance as patient completes activity. Assistance may be provided throughout the activity or intermittently. 3-Partial/Moderate Assistance-helper does LESS THAN HALF the effort. [place] lifts, holds or supports trunk or limbs, but provides less than half the effort. 2-Substantial/Maximal Assistance-helper does MORE THAN HALF the effort. [place] lifts or holds trunk or limbs and provides more than half the effort. 7-Lhycachiu-ofchar does ALL the effort. Patient does none of the effort to complete the activity. Or, the assistance of 2 or more helpers is required for the patient to complete the activity. If activity was not attempted, code reason: 7-Patient Refused. 9-Not Applicable-not attempted and the patient did not perform the activity before the current illness, exacerbation or injury. 10-Not Attempted due to Environmental Limitations-(lack of equipment, weather restraints, etc.). 88-Not Attempted due to Medical Conditions or Safety Concerns. Sit to Stand (QC): 3 Toilet Transfer (QC): 3 Weight Bearing Right Lower Extremity: Right Partial Weight Bearing Left Lower Extremity: Left Full Weight Bearing Has to be reminded for PWB right LE Gait Training Distance: 15' Walk 10 feet (QC): 3 Gait Assistive Device: FWW very slow, antalgic gait/VC's for body placement in FWW Assessment Patient requires mod assist with all mobility and continues to have difficulty with PWB right LE. PT to increase activity as tolerated by patient. PT Correction Goals Activities Concierge Goals PT Correction Goals Time Frame: December 16, 2022 Roll Left & Right (QC): 4 Sit to Lying (QC): 4 Lying-Sitting on Side/Bed(QC): 4 Sit to Stand (QC): 4 Chair/Osi-ff-Iijog Xfer(QC): 4 Toilet Transfer (QC): 4 Does the Patient Walk: Yes Walk 10 feet (QC): 3 Walk 50ft with 2 Turns (QC): 3 Walk 150 ft (QC): 3 1 Step (curb) (QC): 3 4 Steps (QC): 3 PT Plan Treatment/Plan Treatment Plan: Continue Plan of Care Treatment Plan: Bed Mobility, Education, Functional Activity Luzma, Functional Strength, Group Therapy, Gait, Safety, Therapeutic Exercise, Transfers Treatment Duration: December 16, 2022 Frequency: 11 times per week Estimated Hrs Per Day: .25 hour per day Patient and/or Family Agrees t: Yes Time Time In: 1335 Time Out: 1347 DATE: November 20, 2022 Total Billed Treatment Time: 12 Total Billed Treatment 1 visit GT 12 min IAN KEYS PT November 20, 2022 13:57
[2022-11-20 15:56] VITALS: BP 131/63
[2022-11-20 19:26] VITALS: BP 137/68
[2022-11-20] MEDS: traZODone 150 MG (DESYREL) TABLET PO SCH (20:37)
[2022-11-20] MEDS: MONTELUKAST 10 MG (SINGULAIR) TAB PO SCH (20:37)
[2022-11-21] VITALS (7 sets, daily range): BP systolic 125–176; BP diastolic 67–78
[2022-11-21 05:50] LABS: HEMOGLOBIN 6.9 g/dL (11.5-16.0)
[2022-11-21] MEDS ORDERED: NS IV 500 ML 500 ML IV SCH (06:15)
--- NOTE | 2022-11-21 06:57 | Progress Note ---
Standard Progress Note Progress Notes/Assess & Plan Date Seen by a Provider: November 21, 2022 Time Seen by a Provider: 06:56 Progress/Assessment & Plan no complaints Laboratory Tests Test 11/19/22 05:05 Range/Units Hemoglobin 9.4 L 11.5-16.0 g/dL Hematocrit 29 L 35-52 % Vital Signs Date Time Temp Pulse Resp B/P (MAP) Pulse Ox O2 Delivery O2 Flow Rate FiO2 11/19/22 07:41 36.8 75 18 143/67 (92) 97 Nasal Cannula 1.00 11/19/22 03:19 36.6 75 18 134/67 (89) 97 Nasal Cannula 2.00 11/19/22 01:00 70 11/18/22 23:11 36.0 92 18 118/64 (82) 98 Nasal Cannula 2.00 11/18/22 21:15 Room Air 11/18/22 19:57 36.3 68 16 125/77 (93) 98 Nasal Cannula 2.00 11/18/22 19:00 77 11/18/22 16:05 36.4 61 16 140/67 (91) 96 Nasal Cannula 2.00 11/18/22 16:05 58 11/18/22 12:20 Nasal Cannula 2.00 11/18/22 12:10 36.6 12 125/81 (96) 98 Nasal Cannula 2.00 11/18/22 12:05 Room Air 11/18/22 12:00 16 131/68 (89) 95 Room Air 11/18/22 12:00 35.9 62 19 144/65 (91) 98 Nasal Cannula 2.00 11/18/22 11:50 12 122/75 (91) 100 OxyMask 8 11/18/22 11:50 OxyMask 8 11/18/22 11:40 12 125/67 (86) 99 OxyMask 8 11/18/22 11:35 OxyMask 8 11/18/22 11:30 12 142/63 (89) 100 OxyMask 8 11/18/22 11:19 36.5 12 118/70 (86) 100 OxyMask 8 11/18/22 11:19 OxyMask 8 11/18/22 08:00 36.4 63 19 155/74 (101) 96 Room Air I & O 11/19/22 07:00 Intake Total 2500 ml Output Total 875 ml Balance 1625 ml R hip dressing intact intact DF and PF of toes and ankle sensation intact throughout s/p I M carlos right hip PT/OT Final Diagnosis no complaints Vital Signs Date Time Temp Pulse Resp B/P (MAP) Pulse Ox O2 Delivery O2 Flow Rate FiO2 11/21/22 01:00 60 11/21/22 00:15 36.0 69 18 141/69 (93) 100 Nasal Cannula 2.00 11/20/22 20:45 Room Air 11/20/22 19:26 36.2 97 20 137/68 (91) 84 Room Air 11/20/22 19:00 90 11/20/22 15:56 36.5 79 16 131/63 (85) 98 Nasal Cannula 1.00 11/20/22 13:00 57 11/20/22 12:15 36.7 86 18 115/72 (86) 97 Room Air 11/20/22 08:00 Room Air 11/20/22 07:20 36.8 56 18 134/57 (82) 95 Nasal Cannula 1.00 11/20/22 07:00 65 I & O 11/21/22 07:00 Intake Total 1730 ml Output Total 375 ml Balance 1355 ml Laboratory Tests Test 11/21/22 05:04 Range/Units Hemoglobin 6.9 *L 11.5-16.0 g/dL Hematocrit 22 L 35-52 % R hip dressings intact no calf tenderness s/p R hip IM carlos PT/OT one unit PRBC ordered JUAN RAMOS MD November 21, 2022 06:57
[2022-11-21] MEDS: meTOprolol TARTRATE 50 MG (LOPRESSOR) TAB PO SCH ×2 (08:09→21:30)
[2022-11-21] MEDS: PANTOPRAZOLE 40 MG (PROTONIX) TAB PO SCH (08:09)
[2022-11-21] MEDS: dilTIAZem120 MG (CARDIZEM CD) CAP PO SCH (08:09)
[2022-11-21] MEDS: CELECOXIB 100 MG (CeleBREX) CAP PO SCH ×2 (08:10→21:30)
[2022-11-21] MEDS: LEVOTHYROXINE 125 MCG (LEVOTHROID) TABLET PO SCH (08:10)
[2022-11-21] MEDS: FLUTICASONE NASAL SPRAY (FLONASE) 16 GM BTL NS SCH (08:10)
[2022-11-21] MEDS: HYDROcodone/APAP 5 MG/325 MG (LORTAB) TAB PO PRN ×3 (08:11→16:39)
--- NOTE | 2022-11-21 08:17 | Physical Therapy Daily Note ---
PT Daily Note-Current Subjective States that she is doing ok and will try to do therapy. Pain Section J - Health Conditions 1. Rarely or not at all 2. Occasionally 3. Frequently 4. Almost constantly 8. Unable to answer Pain Effect on Sleep: 2 Pain Interference with Therapy: 2 Pain Interference w/Day-to-Day: 2 Transfers SCALE: Activities may be completed with or without assistive devices. 1-Xvbxvvknvd-awsrfir completes the activity by him/herself with no assistance from a helper. 5-Set-up or Clean-up Assistance-helper sets up or cleans up; patient completes activity. [place] assists only prior to or following the activity. 4-Supervision or Touching Assistance-helper provides verbal cues and/or touching/steadying and/or contact guard assistance as patient completes activity. Assistance may be provided throughout the activity or intermittently. 3-Partial/Moderate Assistance-helper does LESS THAN HALF the effort. [place] lifts, holds or supports trunk or limbs, but provides less than half the effort. 2-Substantial/Maximal Assistance-helper does MORE THAN HALF the effort. [place] lifts or holds trunk or limbs and provides more than half the effort. 6-Rlvyaxbrh-qfvqga does ALL the effort. Patient does none of the effort to complete the activity. Or, the assistance of 2 or more helpers is required for the patient to complete the activity. If activity was not attempted, code reason: 7-Patient Refused. 9-Not Applicable-not attempted and the patient did not perform the activity before the current illness, exacerbation or injury. 10-Not Attempted due to Environmental Limitations-(lack of equipment, weather restraints, etc.). 88-Not Attempted due to Medical Conditions or Safety Concerns. Sit to Stand (QC): 4 Toilet Transfer (QC): 5 Weight Bearing Right Lower Extremity: Right Partial Weight Bearing Left Lower Extremity: Left Full Weight Bearing Has to be reminded for PWB right LE Gait Training Does the Patient Walk?: Yes Distance: 10' x 2 Walk 10 feet (QC): 4 Walk 50 ft with 2 Turns(QC): 88 Walk 150 ft (QC): 88 Walking 10ft/uneven surface-QC: 88 Gait Persons Needed: 1 Gait Assistive Device: FWW Exercises Supine Ex: Ankle pumps, Quad Set, Glut sets Supine Reps: 10 Seated Therapy Exercises: Long arc quads Seated Reps: 10 Assessment Current Status: Good Progress Patient had increased pain after transferring on and off commode. PT Senior Care Goals Passport Application Examiner Goals PT Senior Care Goals Time Frame: December 16, 2022 Roll Left & Right (QC): 4 Sit to Lying (QC): 4 Lying-Sitting on Side/Bed(QC): 4 Sit to Stand (QC): 4 Chair/Lqg-bj-Chars Xfer(QC): 4 Toilet Transfer (QC): 4 Does the Patient Walk: Yes Walk 10 feet (QC): 3 Walk 50ft with 2 Turns (QC): 3 Walk 150 ft (QC): 3 1 Step (curb) (QC): 3 4 Steps (QC): 3 PT Plan Treatment/Plan Treatment Plan: Continue Plan of Care Treatment Plan: Bed Mobility, Education, Functional Activity Luzma, Functional Strength, Group Therapy, Gait, Safety, Therapeutic Exercise, Transfers Treatment Duration: December 16, 2022 Frequency: 11 times per week Estimated Hrs Per Day: .25 hour per day Patient and/or Family Agrees t: Yes Time Time In: 744 Time Out: 809 DATE: November 21, 2022 Total Billed Treatment Time: 25 Total Billed Treatment 1, GT x 15, EX x 10' ALEIDA MCBRIDE PT November 21, 2022 08:16
--- NOTE | 2022-11-21 10:32 | Progress Note - Hospitalist ---
Subjective HPI/CC On Admission Date Seen by Provider: November 21, 2022 Pt is a 77yoCF who presented to the ER due to hip pain. She gives a limited and sometimes varyign history. She has no family at bedside and when asked what brought her to the hospital she stated and ambulance and needed clarification to further elaborate on why an ambulance was summoned. She told me she has been getting dizzy recently but has not had any syncopal episodes until yesterday. 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 She then couldn't get up and walk due to the pain and so they called the ambulance. She was found to have an right intertrochanteric hip fractuce and admitted for operative repair. Subjective/Events-last exam Pt reports doing well but having persistent pain in hip. Discussed anemia and need for transfusion. Awaiting insurance authorization for rehab. Objective Exam Vital Signs Vital Signs Date Time Temp Pulse Resp B/P (MAP) Pulse Ox O2 Delivery O2 Flow Rate FiO2 11/21/22 10:18 Room Air 0.00 11/21/22 10:02 36.2 65 16 157/76 96 Capillary Refill : Less Than 3 Seconds General Appearance: No Apparent Distress, WD/WN Respiratory: Lungs Clear, No Respiratory Distress Cardiovascular: Regular Rate, Rhythm, No Murmur Neurologic/Psychiatric: Alert, Oriented x3 Results/Procedures Lab Laboratory Tests 11/21/22 05:04 Patient resulted labs reviewed. Imaging: Reviewed Imaging Report Assessment/Plan Assessment and Plan Assess & Plan/Chief Complaint Right hip fracture Dr Sun consulted, appreciate recs POD #3 Pain regimen Bowel regimen PT/OT IRF eval placed- awaiting insurance authorization Anemia Hgb down to 6.9 1 unit pRBCs ordered No evidence of bleeding but will hold Xarelto Iron low, will replace tomorrow Syncope A fib HTN CAD HLD Gives varying history of syncope Loop recordered removed- cardiology planning to replace Telemetry Cardiology consulted, appreciate recs Hypothyroidism Continue home meds DVT ppx: Xarelto on hold for anemia Diagnosis/Problems Diagnosis/Problems (1) Closed intertrochanteric fracture of right hip Status: Acute Qualifiers: Encounter type: initial encounter Fracture alignment: displaced Qualified Codes: S72.141A - Displaced intertrochanteric fracture of right femur, initial encounter for closed fracture (2) Hypertension Status: Chronic (3) Hyperlipidemia Status: Chronic (4) Hypothyroidism Status: Chronic (5) Anticoagulated Status: Acute (6) Fall on same level Status: Acute Qualifiers: Encounter type: initial encounter Qualified Codes: W18.30XA - Fall on same level, unspecified, initial encounter (7) Syncope Status: Acute Qualifiers: Syncope type: unspecified Qualified Codes: R55 - Syncope and collapse (8) HX OVARIAN CANCER EXTENDING INTO COLON (9) DVT prophylaxis Status: Acute (10) Atrial fibrillation Status: Chronic ROBE CROFT MD November 21, 2022 10:32 am
[2022-11-21] MEDS: LACTATED RINGERS 1,000 ML IV SCH (12:06)
--- NOTE | 2022-11-21 14:21 | Progress Note - Cardiology ---
Cardiology SOAP Progress Note Subjective: No cp or palp or syncope No shortness of breath at rest No n/v/d No focal weakness Gen weakness present Mod discomfort at site of hip surgery Objective: I&O/Vital Signs 11/21/22 11/21/22 11/21/22 11/21/22 07:19 07:35 08:00 09:39 Temp 36.2 36.2 Pulse 78 91 69 Resp 18 16 B/P (MAP) 176/78 (110) 150/74 Pulse Ox 95 97 O2 Delivery Room Air Room Air Room Air 11/21/22 11/21/22 11/21/22 11/21/22 10:02 10:18 12:24 12:35 Temp 36.2 36.4 Pulse 65 68 58 Resp 16 16 B/P (MAP) 157/76 153/78 Pulse Ox 96 O2 Delivery Room Air Room Air Room Air O2 Flow Rate 0.00 11/20/22 23:59 Intake Total 1730 ml Output Total 175 ml Balance 1555 ml Weight (Pounds): 235 Weight (Ounces): 11.2 Weight (Calculated Kilograms): 106.259441 Constitutional: AAO x 3, well-developed, well-nourished Respiratory: No accessory muscle use; chest expansion is symmetric, chest is bilaterally symmetric, other (good, bilateral air entry) Cardiovascular: regular rate-rhythm, S1 and S2, systolic murmur (soft ANABEL at card base) Gastrointestional: No tender; soft; No guarding, No rebound; audible bowel sounds Extremities: No clubbing, No cyanosis, No significant edema Neurologic/Psychiatric: oriented x 3, other (moves all limbs; we did not attempt any motion at the hips) Skin: normal color, warm/dry; No cyanosis, No rash, No ulcerations Results/Procedures: Labs Laboratory Tests 11/21/22 05:04: Hemoglobin 6.9*L, Hematocrit 22L Microbiology 11/18/22 MRSA Screen - Final, Complete MRSA not isolated Laboratory Tests 11/20/22 05:20 11/21/22 05:04 A/P: Assessment: Syncope, unknown etiology - most probably labile hypertension. No significant arrythmia seen (remains on tele) - 2D Echo done on November 18, 2022 with ejection fraction 60 to 65%, PA pressure 40 to 45 mmHg, mild mitral regurgitation moderate tricuspid regurgitation. S/p right-sided hip surgery for hip fracture from syncopal fall - post op anemia, managed by Med and Surg svces Permanent atrial fibrillation with a controlled vent rate - Had ILR in place, now at EOL - chronic Xarelto for stroke prophylaixs Coronary artery disease, - cardiac catheterization was done in August 2015 showing mild ectasia in the proximal LAD with slow flow in the proximal LAD at otherwise small vessel disease no significant obstructive disease. - Had another cardiac catheterization done in March 2019 after having an abnormal stress test showing coronary ectasia, no change compared to 2015. - Currently EKG did not show any acute abnormality on November 17, 2022. Continue to monitor Mild bilateral nonobstructive carotid artery stenosis, continue to monitor COPD, obstructive sleep apnea, seen by Dr. Boston in the past. Managed by primary care physician Hypertension - currently not well controlled Hyperlipidemia - monitored by Dr Savage Ovarian cancer, had abdominal extensive surgery, recurrent malignancy, Moderately differentiated carcinoma although very status post total abdominal hysterectomy/BSO and partial colectomy in August 2020 Hypothyroidism managed by primary care physician Prediabetes, patient was educated on diet and weight loss. Obesity, BMI 39, we discussed weight loss and diet Plan: * I interviewed and examined the patient and reviewed her records * Several recs made * D/c dilt to reduce risk of symptomatic bradycardia * Continue metoprolol * Add amlodipine for bp control * Continue anticoag * Blood transfusion * Monitor labs ANA CRISTINA LOPES MD FACP [facility] CCDS November 21, 2022 14:21
[2022-11-21] MEDS: MONTELUKAST 10 MG (SINGULAIR) TAB PO SCH (21:30)
[2022-11-21] MEDS: traZODone 150 MG (DESYREL) TABLET PO SCH (21:30)
[2022-11-22] MEDS: LACTATED RINGERS 1,000 ML IV SCH (01:45)
[2022-11-22 05:03] LABS: HEMATOCRIT 26 % (35-52); HEMOGLOBIN 8.4 g/dL (11.5-16.0); MEAN CORPUSCULAR HEMOGLOBIN 27 pg (25-34); MEAN CORPUSCULAR HGB CONC 33 g/dL (32-36); MEAN CORPUSCULAR VOLUME 82 fL (80-99); MEAN PLATELET VOLUME 9.1 fL (9.0-12.2); PLATELET COUNT 135 10^3/uL (130-400); WHITE BLOOD COUNT 3.4 10^3/uL (4.3-11.0)
[2022-11-22 05:24] LABS: CALCIUM 8.1 MG/DL (8.5-10.1); CREATININE SERUM 1.02 MG/DL (0.60-1.30); POTASSIUM 3.9 MMOL/L (3.6-5.0)
[2022-11-22 07:18] VITALS: BP 178/85
--- NOTE | 2022-11-22 07:34 | Progress Note ---
Standard Progress Note Progress Notes/Assess & Plan Date Seen by a Provider: November 22, 2022 Time Seen by a Provider: 07:24 Progress/Assessment & Plan no complaints Laboratory Tests Test 11/19/22 05:05 Range/Units Hemoglobin 9.4 L 11.5-16.0 g/dL Hematocrit 29 L 35-52 % Vital Signs Date Time Temp Pulse Resp B/P (MAP) Pulse Ox O2 Delivery O2 Flow Rate FiO2 11/19/22 07:41 36.8 75 18 143/67 (92) 97 Nasal Cannula 1.00 11/19/22 03:19 36.6 75 18 134/67 (89) 97 Nasal Cannula 2.00 11/19/22 01:00 70 11/18/22 23:11 36.0 92 18 118/64 (82) 98 Nasal Cannula 2.00 11/18/22 21:15 Room Air 11/18/22 19:57 36.3 68 16 125/77 (93) 98 Nasal Cannula 2.00 11/18/22 19:00 77 11/18/22 16:05 36.4 61 16 140/67 (91) 96 Nasal Cannula 2.00 11/18/22 16:05 58 11/18/22 12:20 Nasal Cannula 2.00 11/18/22 12:10 36.6 12 125/81 (96) 98 Nasal Cannula 2.00 11/18/22 12:05 Room Air 11/18/22 12:00 16 131/68 (89) 95 Room Air 11/18/22 12:00 35.9 62 19 144/65 (91) 98 Nasal Cannula 2.00 11/18/22 11:50 12 122/75 (91) 100 OxyMask 8 11/18/22 11:50 OxyMask 8 11/18/22 11:40 12 125/67 (86) 99 OxyMask 8 11/18/22 11:35 OxyMask 8 11/18/22 11:30 12 142/63 (89) 100 OxyMask 8 11/18/22 11:19 36.5 12 118/70 (86) 100 OxyMask 8 11/18/22 11:19 OxyMask 8 11/18/22 08:00 36.4 63 19 155/74 (101) 96 Room Air I & O 11/19/22 07:00 Intake Total 2500 ml Output Total 875 ml Balance 1625 ml R hip dressing intact intact DF and PF of toes and ankle sensation intact throughout s/p I M carlos right hip PT/OT Final Diagnosis no complaints Vital Signs Date Time Temp Pulse Resp B/P (MAP) Pulse Ox O2 Delivery O2 Flow Rate FiO2 11/22/22 00:45 70 11/21/22 23:30 36.9 72 18 125/72 (89) 95 Room Air 11/21/22 20:50 Room Air 11/21/22 19:00 87 11/21/22 15:25 36.4 65 18 138/67 (90) 97 Room Air 11/21/22 12:35 58 11/21/22 12:24 36.4 68 16 153/78 Room Air 11/21/22 10:18 Room Air 0.00 11/21/22 10:02 36.2 65 16 157/76 96 Room Air 11/21/22 09:39 36.2 69 16 150/74 97 Room Air 11/21/22 08:00 Room Air 11/21/22 07:35 91 I & O 11/22/22 07:00 Intake Total 1450 ml Output Total 350 ml Balance 1100 ml Laboratory Tests Test 11/22/22 04:38 Range/Units White Blood Count 3.4 L 4.3-11.0 10^3/uL Red Blood Count 3.13 L 3.80-5.11 10^6/uL Hemoglobin 8.4 #L 11.5-16.0 g/dL Hematocrit 26 L 35-52 % Mean Corpuscular Volume 82 80-99 fL Mean Corpuscular Hemoglobin 27 25-34 pg Mean Corpuscular Hemoglobin Concent 33 32-36 g/dL Red Cell Distribution Width 13.9 10.0-14.5 % Platelet Count 135 130-400 10^3/uL Mean Platelet Volume 9.1 9.0-12.2 fL Sodium Level 140 135-145 MMOL/L Potassium Level 3.9 3.6-5.0 MMOL/L Chloride Level 109 H 98-107 MMOL/L Carbon Dioxide Level 24 21-32 MMOL/L Anion Gap 7 5-14 MMOL/L Blood Urea Nitrogen 21 H 7-18 MG/DL Creatinine 1.02 0.60-1.30 MG/DL Estimat Glomerular Filtration Rate 57 BUN/Creatinine Ratio 21 Glucose Level 97 70-105 MG/DL Calcium Level 8.1 L 8.5-10.1 MG/DL RLE--dressing intact no calf tenderness neg Kieran's s/p R hip IM carlos PT/OT JUAN RAMOS MD November 22, 2022 07:34
[2022-11-22] MEDS: CELECOXIB 100 MG (CeleBREX) CAP PO SCH ×2 (07:47→20:59)
[2022-11-22] MEDS: LEVOTHYROXINE 125 MCG (LEVOTHROID) TABLET PO SCH (07:47)
[2022-11-22] MEDS: HYDROcodone/APAP 5 MG/325 MG (LORTAB) TAB PO PRN ×5 (07:47→20:58)
[2022-11-22] MEDS: meTOprolol TARTRATE 50 MG (LOPRESSOR) TAB PO SCH ×2 (07:47→20:58)
[2022-11-22] MEDS: amLODIPine 5 MG (NORVASC) TAB PO SCH (07:48)
[2022-11-22] MEDS: FLUTICASONE NASAL SPRAY (FLONASE) 16 GM BTL NS SCH (07:48)
[2022-11-22] MEDS: PANTOPRAZOLE 40 MG (PROTONIX) TAB PO SCH (07:48)
--- NOTE | 2022-11-22 08:01 | Physical Therapy Daily Note ---
PT Daily Note-Current Subjective States that she is doing better today. Pain Numeric Pain Scale: 5-Moderate Pain Section J - Health Conditions 1. Rarely or not at all 2. Occasionally 3. Frequently 4. Almost constantly 8. Unable to answer Pain Effect on Sleep: 2 Pain Interference with Therapy: 2 Pain Interference w/Day-to-Day: 2 Transfers SCALE: Activities may be completed with or without assistive devices. 6-Atvzgfvvei-oaaokdj completes the activity by him/herself with no assistance from a helper. 5-Set-up or Clean-up Assistance-helper sets up or cleans up; patient completes activity. [place] assists only prior to or following the activity. 4-Supervision or Touching Assistance-helper provides verbal cues and/or touching/steadying and/or contact guard assistance as patient completes activity. Assistance may be provided throughout the activity or intermittently. 3-Partial/Moderate Assistance-helper does LESS THAN HALF the effort. [place] lifts, holds or supports trunk or limbs, but provides less than half the effort. 2-Substantial/Maximal Assistance-helper does MORE THAN HALF the effort. [place] lifts or holds trunk or limbs and provides more than half the effort. 0-Zslrcrazv-drekby does ALL the effort. Patient does none of the effort to complete the activity. Or, the assistance of 2 or more helpers is required for the patient to complete the activity. If activity was not attempted, code reason: 7-Patient Refused. 9-Not Applicable-not attempted and the patient did not perform the activity before the current illness, exacerbation or injury. 10-Not Attempted due to Environmental Limitations-(lack of equipment, weather restraints, etc.). 88-Not Attempted due to Medical Conditions or Safety Concerns. Sit to Stand (QC): 3 Weight Bearing Right Lower Extremity: Right Partial Weight Bearing Left Lower Extremity: Left Full Weight Bearing Has to be reminded for PWB right LE Gait Training Does the Patient Walk?: Yes Distance: 20' Walk 10 feet (QC): 5 Walk 50 ft with 2 Turns(QC): 88 Walk 150 ft (QC): 88 Walking 10ft/uneven surface-QC: 88 Gait Persons Needed: 1 Gait Assistive Device: FWW Exercises Seated Therapy Exercises: Ankle pumps, Long arc quads, Glut set Seated Reps: 20 Assessment Current Status: Good Progress Patient did much better with gait today. PT Usp Goals Usp Goals PT Usp Goals Time Frame: December 16, 2022 Roll Left & Right (QC): 4 Sit to Lying (QC): 4 Lying-Sitting on Side/Bed(QC): 4 Sit to Stand (QC): 4 Chair/Vtk-ma-Wmsmp Xfer(QC): 4 Toilet Transfer (QC): 4 Does the Patient Walk: Yes Walk 10 feet (QC): 3 Walk 50ft with 2 Turns (QC): 3 Walk 150 ft (QC): 3 1 Step (curb) (QC): 3 4 Steps (QC): 3 PT Plan Treatment/Plan Treatment Plan: Continue Plan of Care Treatment Plan: Bed Mobility, Education, Functional Activity Luzma, Functional Strength, Group Therapy, Gait, Safety, Therapeutic Exercise, Transfers Treatment Duration: December 16, 2022 Frequency: 11 times per week Estimated Hrs Per Day: .25 hour per day Patient and/or Family Agrees t: Yes Time Time In: 0732 Time Out: 0755 DATE: November 22, 2022 Total Billed Treatment Time: 23 Total Billed Treatment 1, GT x 15, EX x 8 ALEIDA MCBRIDE PT November 22, 2022 08:01
[2022-11-22] MEDS: ONDANSETRON 4 MG/2 ML (SDV) Z0FRAN IVP PRN (08:31)
[2022-11-22] MEDS ORDERED: FLEET ENEMA ADULT 1 EA BTL PR PRN (10:45)
--- NOTE | 2022-11-22 10:45 | Progress Note - Hospitalist ---
Subjective HPI/CC On Admission Date Seen by Provider: November 22, 2022 Pt is a 77yoCF who presented to the ER due to hip pain. She gives a limited and sometimes varyign history. She has no family at bedside and when asked what brought her to the hospital she stated and ambulance and needed clarification to further elaborate on why an ambulance was summoned. She told me she has been getting dizzy recently but has not had any syncopal episodes until yesterday. 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 She then couldn't get up and walk due to the pain and so they called the ambulance. She was found to have an right intertrochanteric hip fractuce and admitted for operative repair. Subjective/Events-last exam Pt reports doing ok today but having pain still. Discussed how we are still awaiting insurance review for admission to IRF. Reviewed lab findings and iron deficiency which she reports is chronic for her. She also complains of constipation but is worried about making it to the toilet in take as well. Offered enema. Objective Exam Vital Signs Vital Signs Date Time Temp Pulse Resp B/P (MAP) Pulse Ox O2 Delivery O2 Flow Rate FiO2 11/22/22 08:00 Room Air 11/22/22 07:38 78 11/22/22 07:18 36.6 18 178/85 (116) 96 11/21/22 10:18 0.00 Capillary Refill : Less Than 3 Seconds General Appearance: No Apparent Distress, Chronically ill, Obese Cardiovascular: Regular Rate, Rhythm, No Murmur Gastrointestinal: Normal Bowel Sounds, Soft Neurologic/Psychiatric: Alert, Oriented x3 Results/Procedures Lab Laboratory Tests 11/22/22 04:38 Patient resulted labs reviewed. Imaging: Reviewed Imaging Report Assessment/Plan Assessment and Plan Assess & Plan/Chief Complaint Right hip fracture Dr Sun consulted, appreciate recs POD #4 Pain regimen Bowel regimen- enema added PT/OT IRF eval placed- awaiting insurance authorization still Patient would be a more than appropriate candidate for IRF given she was functionally independent prior to this admission and now has need for intensive therapy to regain ADLs and iADLs. SHe has improved every day with therapy but will require physician oversight to continue IV iron and monitor for orthostasis so she doesn't have a syncopal episode and damage her new hardware Anemia Hgb down up to 8.4 Will start Venofer as well No evidence of bleeding but will hold Xarelto- resume tomorrow if remains stable Syncope A fib HTN CAD HLD Gives varying history of syncope Loop recordered removed- cardiology planning to replace Telemetry Cardiology consulted, appreciate recs Hypothyroidism Continue home meds DVT ppx: Xarelto on hold for anemia Diagnosis/Problems Diagnosis/Problems (1) Closed intertrochanteric fracture of right hip Status: Acute Qualifiers: Encounter type: initial encounter Fracture alignment: displaced Qualified Codes: S72.141A - Displaced intertrochanteric fracture of right femur, initial encounter for closed fracture (2) Hypertension Status: Chronic (3) Hyperlipidemia Status: Chronic (4) Hypothyroidism Status: Chronic (5) Anticoagulated Status: Acute (6) Fall on same level Status: Acute Qualifiers: Encounter type: initial encounter Qualified Codes: W18.30XA - Fall on same level, unspecified, initial encounter (7) Syncope Status: Acute Qualifiers: Syncope type: unspecified Qualified Codes: R55 - Syncope and collapse (8) HX OVARIAN CANCER EXTENDING INTO COLON (9) DVT prophylaxis Status: Acute (10) Atrial fibrillation Status: Chronic ROBE CROFT MD November 22, 2022 10:45
[2022-11-22] MEDS: IRON SUCROSE 200 MG/10 ML (VENOFER) VIAL IV SCH (11:56)
[2022-11-22 15:53] VITALS: BP 133/64
--- NOTE | 2022-11-22 17:54 | Progress Note - Cardiology ---
Cardiology SOAP Progress Note Subjective: No cp or palp or syncope or shortness of breath at rest No n/v/d No focal weakness Some gen weakness and malaise present Objective: I&O/Vital Signs 11/22/22 11/22/22 11/22/22 11/22/22 07:18 07:38 08:00 12:30 Temp 36.6 Pulse 92 78 74 Resp 18 B/P (MAP) 178/85 (116) Pulse Ox 96 O2 Delivery Room Air Room Air 11/22/22 15:53 Temp 36.3 Pulse 71 Resp 18 B/P (MAP) 133/64 (87) Pulse Ox 95 O2 Delivery Room Air 11/22/22 00:00 Intake Total 1100 ml Output Total 350 ml Balance 750 ml Weight (Pounds): 235 Weight (Ounces): 11.2 Weight (Calculated Kilograms): 106.817494 Constitutional: AAO x 3, well-developed, well-nourished Respiratory: No accessory muscle use; chest expansion is symmetric, chest is bilaterally symmetric, other (good, bilateral air entry) Cardiovascular: regular rate-rhythm, S1 and S2, systolic murmur (soft ANABEL at card base) Gastrointestional: No tender; soft; No guarding, No rebound; audible bowel sounds Extremities: No clubbing, No cyanosis, No significant edema Neurologic/Psychiatric: oriented x 3, other (moves all limbs; we did not attempt any motion at the hips) Skin: normal color, warm/dry; No cyanosis, No rash, No ulcerations Results/Procedures: Labs Laboratory Tests 11/22/22 04:38: White Blood Count 3.4L, Red Blood Count 3.13L, Hemoglobin 8.4#L, Hematocrit 26L, Mean Corpuscular Volume 82, Mean Corpuscular Hemoglobin 27, Mean Corpuscular Hemoglobin Concent 33, Red Cell Distribution Width 13.9, Platelet Count 135, Mean Platelet Volume 9.1, Sodium Level 140, Potassium Level 3.9, Chloride Level 109H, Carbon Dioxide Level 24, Anion Gap 7, Blood Urea Nitrogen 21H, Creatinine 1.02, Estimat Glomerular Filtration Rate 57, BUN/Creatinine Ratio 21, Glucose Level 97, Calcium Level 8.1L Microbiology 11/18/22 MRSA Screen - Final, Complete MRSA not isolated Laboratory Tests 11/21/22 05:04 11/22/22 04:38 A/P: Assessment: Syncope, unknown etiology - ?postural hypertension. No significant arrythmia seen (remains on tele) - 2D Echo done on November 18, 2022 with ejection fraction 60 to 65%, PA pressure 40 to 45 mmHg, mild mitral regurgitation moderate tricuspid regurgitation. S/p right-sided hip surgery for hip fracture from syncopal fall - post op anemia, managed by Med and Surg svces Permanent atrial fibrillation with a controlled vent rate - Had ILR in place, now at EOL - chronic Xarelto for stroke prophylaixs Coronary artery disease, - cardiac catheterization was done in August 2015 showing mild ectasia in the proximal LAD with slow flow in the proximal LAD at otherwise small vessel disease no significant obstructive disease. - Had another cardiac catheterization done in March 2019 after having an abnormal stress test showing coronary ectasia, no change compared to 2015. - Currently EKG did not show any acute abnormality on November 17, 2022. Continue to monitor Mild bilateral nonobstructive carotid artery stenosis, continue to monitor COPD, obstructive sleep apnea, seen by Dr. Boston in the past. Managed by primary care physician Hypertension - currently not well controlled Hyperlipidemia - monitored by Dr Savage Ovarian cancer, had abdominal extensive surgery, recurrent malignancy, Moderately differentiated carcinoma although very status post total abdominal hysterectomy/BSO and partial colectomy in August 2020 Hypothyroidism managed by primary care physician Prediabetes, patient was educated on diet and weight loss. Obesity, BMI 39, we discussed weight loss and diet Plan: * D/c dilt to reduce risk of symptomatic bradycardia * Continue metoprolol * Added amlodipine for bp control, bp better since * Continue anticoag * Monitor labs ANA CRISTINA LOPES MD FACP [facility]S November 22, 2022 17:54
[2022-11-22] MEDS: MONTELUKAST 10 MG (SINGULAIR) TAB PO SCH (20:58)
[2022-11-22] MEDS: diphenhydrAMINE 25 MG TAB (BENADRYL) PO PRN (20:58)
[2022-11-22] MEDS: traZODone 150 MG (DESYREL) TABLET PO SCH (20:59)
[2022-11-23 00:41] VITALS: BP 131/83
--- NOTE | 2022-11-23 08:05 | Progress Note ---
Standard Progress Note Progress Notes/Assess & Plan Date Seen by a Provider: November 23, 2022 Time Seen by a Provider: 07:53 Progress/Assessment & Plan no complaints Laboratory Tests Test 11/19/22 05:05 Range/Units Hemoglobin 9.4 L 11.5-16.0 g/dL Hematocrit 29 L 35-52 % Vital Signs Date Time Temp Pulse Resp B/P (MAP) Pulse Ox O2 Delivery O2 Flow Rate FiO2 11/19/22 07:41 36.8 75 18 143/67 (92) 97 Nasal Cannula 1.00 11/19/22 03:19 36.6 75 18 134/67 (89) 97 Nasal Cannula 2.00 11/19/22 01:00 70 11/18/22 23:11 36.0 92 18 118/64 (82) 98 Nasal Cannula 2.00 11/18/22 21:15 Room Air 11/18/22 19:57 36.3 68 16 125/77 (93) 98 Nasal Cannula 2.00 11/18/22 19:00 77 11/18/22 16:05 36.4 61 16 140/67 (91) 96 Nasal Cannula 2.00 11/18/22 16:05 58 11/18/22 12:20 Nasal Cannula 2.00 11/18/22 12:10 36.6 12 125/81 (96) 98 Nasal Cannula 2.00 11/18/22 12:05 Room Air 11/18/22 12:00 16 131/68 (89) 95 Room Air 11/18/22 12:00 35.9 62 19 144/65 (91) 98 Nasal Cannula 2.00 11/18/22 11:50 12 122/75 (91) 100 OxyMask 8 11/18/22 11:50 OxyMask 8 11/18/22 11:40 12 125/67 (86) 99 OxyMask 8 11/18/22 11:35 OxyMask 8 11/18/22 11:30 12 142/63 (89) 100 OxyMask 8 11/18/22 11:19 36.5 12 118/70 (86) 100 OxyMask 8 11/18/22 11:19 OxyMask 8 11/18/22 08:00 36.4 63 19 155/74 (101) 96 Room Air I & O 11/19/22 07:00 Intake Total 2500 ml Output Total 875 ml Balance 1625 ml R hip dressing intact intact DF and PF of toes and ankle sensation intact throughout s/p I M carlos right hip PT/OT Final Diagnosis no complaints Vital Signs Date Time Temp Pulse Resp B/P (MAP) Pulse Ox O2 Delivery O2 Flow Rate FiO2 11/23/22 07:33 82 11/23/22 01:00 58 11/23/22 00:41 36.2 83 18 131/83 (99) 98 Room Air 11/22/22 20:15 Room Air 11/22/22 19:00 87 11/22/22 15:53 36.3 71 18 133/64 (87) 95 Room Air 11/22/22 12:30 74 I & O 11/23/22 07:00 Intake Total 2582 ml Output Total 750 ml Balance 1832 ml R hip dressing intact no calf tenderness s/p R hip IM carlos to IRU when approved JUAN RAMOS MD November 23, 2022 08:05
[2022-11-23 08:17] LABS: HEMOGLOBIN 9.8 g/dL (11.5-16.0)
[2022-11-23] MEDS: amLODIPine 5 MG (NORVASC) TAB PO SCH (08:23)
[2022-11-23] MEDS: FLUTICASONE NASAL SPRAY (FLONASE) 16 GM BTL NS SCH (08:23)
[2022-11-23] MEDS: CELECOXIB 100 MG (CeleBREX) CAP PO SCH ×2 (08:23→21:03)
[2022-11-23] MEDS: LEVOTHYROXINE 125 MCG (LEVOTHROID) TABLET PO SCH (08:24)
[2022-11-23] MEDS: HYDROcodone/APAP 5 MG/325 MG (LORTAB) TAB PO PRN ×4 (08:24→21:05)
[2022-11-23] MEDS: PANTOPRAZOLE 40 MG (PROTONIX) TAB PO SCH (08:24)
[2022-11-23] MEDS: meTOprolol TARTRATE 50 MG (LOPRESSOR) TAB PO SCH ×2 (08:24→21:02)
[2022-11-23 08:35] VITALS: BP 164/91
--- NOTE | 2022-11-23 09:46 | Cardiology Progress Note ---
Subjective Date Seen by Provider: November 23, 2022 Time Seen by Provider: 08:15 Subjective/Events-last exam Patient is sitting up in chair, has been complaining of some dizziness while sitting. Reports chronic dizziness. Denies any chest pain Objective-Cardiology Exam Last Set of Vital Signs Vital Signs 11/21/22 11/23/22 10:18 08:35 Temp 36.8 Pulse 74 Resp 18 B/P (MAP) 164/91 (115) Pulse Ox 92 O2 Delivery Room Air O2 Flow Rate 0.00 I&O Intake and Output 11/23/22 00:00 Intake Total 2432 ml Output Total 750 ml Balance 1682 ml Intake Oral 2432 ml Output Urine Total 750 ml # Voids 7 # Bowel Movements 1 General: Alert, Oriented X3, Cooperative HEENT: Atraumatic, PERRLA Neck: Supple, No JVD Lungs: Clear to Auscultation, Normal Air Movement Heart: Normal S1, Normal S2, Other (irregularly irregular) Abdomen: Soft, No Tenderness Extremities: No Clubbing Skin: No Rashes Neuro: Normal Speech, Cranial Nerves 3-12 NL Psych/Mental Status: Mental Status NL, Mood NL Results Lab Laboratory Tests 11/23/22 08:13 A/P-Cardiology Admission Diagnosis Syncope Atrial fibrillation Hip fracture Chest pain Assessment/Plan Syncope, unknown etiology, most probably labile hypertension. Resulted in hip fracture Patient is being monitored on telemetry Has a loop monitor implant was extracted at the November 18, [address] a new device Right-sided hip fracture scheduled for hip surgery on November 18, 2022. Receiving physical therapy. Chest pain, nonspecific etiology, has been having chronic chest pain on and off. Continue to monitor Permanent atrial fibrillation with variable response, had an episode of aberrant conduction, seen by Dr. Emerson, had a loop recorder implanted in November 2018, having multiple episodes of atrial fibrillation and pauses. Continue to monitor [id number] score is 3, yearly risk of stroke without oral anticoagulation is 3.2 percent. Patient is maintained on Xarelto. Had previous trauma to the face secondary to falling, Restart Xarelto when deemed reasonable by the surgeon Episodes of dizziness with exertion, reporting worsening symptoms recently, has history of atrial fibrillation and questionable sinus node dysfunction Continue to monitor Coronary artery disease, cardiac catheterization was done in August 2015 showing mild ectasia in the proximal LAD with slow flow in the proximal LAD at otherwise small vessel dis ease no significant obstructive disease. Had another cardiac catheterization done in March 2019 after having an abnormal stress test showing coronary ectasia, no change compared to 2016. Currently EKG did not show any acute abnormality on November 17, 2022. Continue to monitor 2D Echo done on November 18, 2022 with ejection fraction 60 to 65%, PA pressure 40 to 45 mmHg, mild mitral regurgitation moderate tricuspid regurgitation. Mild bilateral nonobstructive carotid artery stenosis, continue to monitor COPD, obstructive sleep apnea, seen by Dr. Boston in the past. Managed by primary care physician Hypertension, better controlled Monitor blood pressure Hyperlipidemia, had lab work done with mild lab. I will obtain copy of the results Ovarian cancer, had abdominal extensive surgery, recurrent malignancy, Moderately differentiated carcinoma although very status post total abdominal hysterectomy/BSO and partial colectomy in August 2020, CEA 125 is elevated, CEA normal, receiving carbo plus Taxol. Reporting repeat scans showing improvement. Hypothyroidism managed by primary care physician Prediabetes, patient was educated on diet and weight loss. Obesity, BMI 39, we discussed weight loss and diet Supervisory-Addendum Brief Supervisory Addendum Participated in pt care: history, MDM, physical Personally performed: exam, history, MDM Care discussed with: ROSARIO Results interpretation: Verified all documentation Notes: Patient was seen and evaluated with Peri, examination performed, management plan was discussed, agree with the current scribed note, I made few changes to the note using Italic font Patient was seen at bedside sitting comfortably, still having dizziness Hypertensive at this time. Heart rate has been controlled and monitored on telemetry We will accept elevated blood pressure to avoid orthostatic syncope I am planning to proceed with new loop monitor implant PERI BERG November 23, 2022 09:46 ANSON POMPA MD November 23, 2022 11:28
--- NOTE | 2022-11-23 10:46 | Physical Therapy Daily Note ---
PT Daily Note-Current Subjective Patient agrees to PT. Pain Numeric Pain Scale: 5-Moderate Pain Location: Right Location Body Site: Hip Pain Description: Acute Section J - Health Conditions 1. Rarely or not at all 2. Occasionally 3. Frequently 4. Almost constantly 8. Unable to answer Pain Effect on Sleep: 2 Pain Interference with Therapy: 2 Pain Interference w/Day-to-Day: 2 Mental Status Patient Orientation: Person, Time Transfers SCALE: Activities may be completed with or without assistive devices. 0-Kdrorinjzh-fmqkfjj completes the activity by him/herself with no assistance from a helper. 5-Set-up or Clean-up Assistance-helper sets up or cleans up; patient completes activity. [place] assists only prior to or following the activity. 4-Supervision or Touching Assistance-helper provides verbal cues and/or touching/steadying and/or contact guard assistance as patient completes activity. Assistance may be provided throughout the activity or intermittently. 3-Partial/Moderate Assistance-helper does LESS THAN HALF the effort. [place] lifts, holds or supports trunk or limbs, but provides less than half the effort. 2-Substantial/Maximal Assistance-helper does MORE THAN HALF the effort. [place] lifts or holds trunk or limbs and provides more than half the effort. 7-Jpvgakqkg-kkqjnv does ALL the effort. Patient does none of the effort to complete the activity. Or, the assistance of 2 or more helpers is required for the patient to complete the activity. If activity was not attempted, code reason: 7-Patient Refused. 9-Not Applicable-not attempted and the patient did not perform the activity before the current illness, exacerbation or injury. 10-Not Attempted due to Environmental Limitations-(lack of equipment, weather restraints, etc.). 88-Not Attempted due to Medical Conditions or Safety Concerns. Sit to Stand (QC): 4 Weight Bearing Right Lower Extremity: Right Partial Weight Bearing Left Lower Extremity: Left Full Weight Bearing Has to be reminded for PWB right LE Gait Training Distance: 225' Walk 10 feet (QC): 4 Walk 50 ft with 2 Turns(QC): 4 Walk 150 ft (QC): 4 Gait Assistive Device: FWW able to comply with PWB right LE Exercises Seated Therapy Exercises: Ankle pumps, Long arc quads, Hip flexion Seated Reps: 15 (x 2 sets) Assessment Patient much improved with increase in distance with ambulation. Patient continues to have difficulty with remembering PWB right LE but is able to comply after education on PWB. Patient remains up in recliner with needs met. PT Mattress Filling Machine Tender Goals Mattress Filling Machine Tender Goals PT Detention Goals Time Frame: December 16, 2022 Roll Left & Right (QC): 4 Sit to Lying (QC): 4 Lying-Sitting on Side/Bed(QC): 4 Sit to Stand (QC): 4 Chair/Sgv-hl-Tiebg Xfer(QC): 4 Toilet Transfer (QC): 4 Does the Patient Walk: Yes Walk 10 feet (QC): 3 Walk 50ft with 2 Turns (QC): 3 Walk 150 ft (QC): 3 1 Step (curb) (QC): 3 4 Steps (QC): 3 PT Plan Treatment/Plan Treatment Plan: Continue Plan of Care Treatment Plan: Bed Mobility, Education, Functional Activity [place], Functional Strength, Group Therapy, Gait, Safety, Therapeutic Exercise, Transfers Treatment Duration: December 16, 2022 Frequency: 11 times per week Estimated Hrs Per Day: .25 hour per day Patient and/or Family Agrees t: Yes Time Time In: 840 Time Out: 903 DATE: November 23, 2022 Total Billed Treatment Time: 23 Total Billed Treatment 1 visit EX 8 min GT 15 min IAN KEYS PT November 23, 2022 10:46
--- NOTE | 2022-11-23 10:50 | Occupational Ther Daily Note ---
OT Current Status-Daily Note Subjective Up in chair, agreeable to OT, does not want to eat breakfast Mental Status/Objective Patient Orientation: Situation ADL-Treatment Therapy Code Descriptions/Definitions Functional [place] Measure: 0=Not Assessed/NA 4=Minimal Assistance 1=Total Assistance 5=Supervision or Setup 2=Maximal Assistance 6=Modified [place] 3=Moderate Assistance 7=Complete IndependenceSCALE: Activities may be completed with or without assistive devices. 3-Zrjcxjebml-xdvscln completes the activity by him/herself with no assistance from a helper. 5-Set-up or Clean-up Assistance-helper sets up or cleans up; patient completes activity. [place] assists only prior to or following the activity. 4-Supervision or Touching Assistance-helper provides verbal cues and/or touching/steadying and/or contact guard assistance as patient completes activity. Assistance may be provided throughout the activity or intermittently. 3-Partial/Moderate Assistance-helper does LESS THAN HALF the effort. [place] lifts, holds or supports trunk or limbs, but provides less than half the effort. 2-Substantial/Maximal Assistance-helper does MORE THAN HALF the effort. [place] lifts or holds trunk or limbs and provides more than half the effort. 6-[place]-gpkppz does ALL the effort. Patient does none of the effort to complete the activity. Or, the assistance of 2 or more helpers is required for the patient to complete the activity. If activity was not attempted, code reason: 7-Patient Refused. 9-Not Applicable-not attempted and the patient did not perform the activity before the current illness, exacerbation or injury. 10-Not Attempted due to Environmental Limitations-(lack of equipment, weather restraints, etc.). 88-Not Attempted due to Medical Conditions or Safety Concerns. Eating (QC): 7 Oral Hygiene (QC): 5 (standing at sink w/ FWW and VC for WB) Shower/Bathe Self (QC): 7 (declined) Upper Body Dressing (QC): 5 Lower Body Dressing (QC): 4 On/Off Footwear: 4 Toileting Hygiene (QC): 4 Toilet Transfer (QC): 4 Education OT Patient Education: Correct positioning, Modified ADL techniques, Progress toward Goal/Update tx plan, Purpose of tx/functional activities, Reviewed precautions, Rehab process, Transfer techniques Teaching Recipient: Patient Teaching Methods: Demonstration, Discussion Response to Teaching: Reinforcement Needed OT Retirement Goals Retirement Goals Eating (QC): 6 Oral Hygiene (QC): 6 Toileting Hygiene (QC): 5 Shower/Bathe Self (QC): 4 Upper Body Dressing (QC): 5 Lower Body Dressing (QC): 4 On/Off Footwear (QC): 4 1=Demonstrate adherence to instructed precautions during ADL tasks. 2=Patient will verbalize/demonstrate understanding of assistive devices/modifications for ADL. 3=Patient will improve strength/tolerance for activity to enable patient to perform ADL's. OT Education/Plan Problem List/Assessment Assessment: Decreased Activ Tolerance, Decreased Safety Aware, Impaired Self- Care Skills Discharge Recommendations Plan/Recommendations: Continue POC Treatment Plan/Plan of Care Treatment,Training & Education: Yes Patient would benefit from OT for education, treatment and training to promote independence in ADL's, mobility, safety and/or upper extremity function for ADL's. Plan of Care: ADL Retraining, Cognitive Retraining, Concurrent Therapy, Functi onal Mobility, Group Exercise/Act as Ind, UE Funct Exercise/Act Treatment Duration: November 28, 2022 Frequency: 3 times per week (3-5 times per week) Estimated Hrs Per Day: .25 hour per day Agreement: Yes Rehab Potential: Guarded Return to recliner, all needs met Time Start Time: 08:40 Stop Time: 09:08 DATE: November 23, 2022 Total Time Billed (hr/min): 28 Billed Treatment Time ADL 2 28 min SALONI HART OT November 23, 2022 10:50
[2022-11-23] MEDS ORDERED: LIDOCAINE 1% INJ 20 ML VIAL ONE (11:00)
--- NOTE | 2022-11-23 12:23 | Implantation of Loop Monitor ---
Implant of Loop Monitior IMPLANTATION OF LOOP MONITOR REPORT DATE OF PROCEDURE: 11/23/22 PREOP DIAGNOSIS: Paroxysmal atrial fibrillation, syncope POSTOP DIAGNOSIS: Paroxysmal atrial fibrillation, syncope PROCEDURE DETAILS: The patient is a 77 female with history of paroxysmal atrial fibrillation and syncope requiring long-term surveillance. Therefore implantable loop recorder was discussed and agreed with the patient. Informed consent was taken. All risks and complications were discussed at length. The patient was draped and prepped in the usual sterile fashion. Local anesthesia was lidocaine, which was given in the substernal area close to the 4th intercostal space. Loop monitor [employer] device was implanted according to the protocol. Steri-Strips were placed at the end of the procedure. There were no complications and the patient tolerated the procedure well. ANESTHESIA: Local anesthesia with lidocaine. COMPLICATIONS: None CONTRAST/FLUOROSCOPY: None CONCLUSION: Successful implantation of loop monitor with no complication ANSON POMPA MD November 23, 2022 12:23
--- NOTE | 2022-11-23 13:47 | Physical Therapy Progress Note ---
Therapy Progress Note Patient refused PT this p.m. PT attempted to encourage patient, however, spouse is present and they are having a snack together. PT will attempt later today or tomorrow a.m. 1 ref IAN KEYS PT November 23, 2022 13:47
[2022-11-23] MEDS: ONDANSETRON 4 MG/2 ML (SDV) Z0FRAN IVP PRN (14:04)
[2022-11-23 15:43] VITALS: BP 146/70
--- NOTE | 2022-11-23 16:46 | Progress Note - Hospitalist ---
Subjective HPI/CC On Admission Date Seen by Provider: November 23, 2022 Time Seen by Provider: 11:10 Pt is a 77yoCF who presented to the ER due to hip pain. She gives a limited and sometimes varyign history. She has no family at bedside and when asked what brought her to the hospital she stated and ambulance and needed clarification to further elaborate on why an ambulance was summoned. She told me she has been getting dizzy recently but has not had any syncopal episodes until yesterday. (she told the ER and her mingler operator she has had multiple syncopal episodes though.) She states she was standing up to go to the bathroom and suddenly felt dizzy and then passed out. She then couldn't get up and walk due to the pain and so they called the ambulance. She was found to have an right intertrochanteric hip fractuce and admitted for operative repair. Subjective/Events-last exam She is feeling ok. She has been doing therapy. She is having a loop recorder placed today. Objective Exam Vital Signs Vital Signs Date Time Temp Pulse Resp B/P (MAP) Pulse Ox O2 Delivery O2 Flow Rate FiO2 11/23/22 15:43 36.5 72 18 146/70 (95) 94 Room Air 11/21/22 10:18 0.00 Capillary Refill : Less Than 3 Seconds General Appearance: No Apparent Distress, Obese Respiratory: Lungs Clear, No Respiratory Distress Cardiovascular: Regular Rate, Rhythm, No Murmur Gastrointestinal: Normal Bowel Sounds, Soft Extremity: Normal Inspection, No Pedal Edema Neurologic/Psychiatric: Alert, Normal Mood/Affect Skin: Normal Color, Warm/Dry Results/Procedures Lab Laboratory Tests 11/23/22 08:13 Patient resulted labs reviewed. Imaging: Reviewed Imaging Report Assessment/Plan Assessment and Plan Assess & Plan/Chief Complaint Right hip fracture s/p surgical repair Dr Sun following Pain regimen Bowel regimen PT/OT IRF accepted, awaiting expedited appeal Anemia Hgb improved s/p 1 unit PRBC Resume Xarelto Syncope A fib HTN CAD HLD Hypothyroidism Continue home meds as able Cardiology following Loop recorder placed today DVT ppx: Xarelto Diagnosis/Problems Diagnosis/Problems (1) Closed intertrochanteric fracture of right hip Status: Acute Qualifiers: Encounter type: initial encounter Fracture alignment: displaced Qualified Codes: S72.141A - Displaced intertrochanteric fracture of right femur, initial encounter for closed fracture (2) Fall on same level Status: Acute Qualifiers: Encounter type: initial encounter Qualified Codes: W18.30XA - Fall on same level, unspecified, initial encounter (3) Anticoagulated Status: Acute (4) Anemia Status: Acute (5) Debility Status: Acute SALINAS BARROW MD November 23, 2022 16:46
[2022-11-23] MEDS: RIVAROXABAN 20 MG TABLET (XARELTO) PO SCH (17:15)
[2022-11-23] MEDS: MONTELUKAST 10 MG (SINGULAIR) TAB PO SCH (21:03)
[2022-11-23] MEDS: traZODone 150 MG (DESYREL) TABLET PO SCH (21:03)
[2022-11-23] MEDS: diphenhydrAMINE 25 MG TAB (BENADRYL) PO PRN (21:05)
[2022-11-24] VITALS: BP 135/75
[2022-11-24 07:50] VITALS: BP 154/81
--- NOTE | 2022-11-24 08:20 | Cardiology Progress Note ---
Subjective Date Seen by Provider: November 24, 2022 Time Seen by Provider: 08:19 Subjective/Events-last exam Patient was seen at bedside, laying down comfortably, complaining of fatigue Review of Systems General: No Chills, No Night Sweats; Fatigue; No Malaise, No Appetite, No Other HEENT: No Head Aches, No Visual Changes, No Eye Pain, No Ear Pain, No Dysphasia, No Sinus Congestion, No Post Nasal Drip, No Sore Throat, No Other Pulmonary: No Dyspnea, No Cough, No Pleuritic Chest Pain, No Other Cardiovascular: No: Chest Pain, Palpitations, Orthopnea, Paroxysmal Noc. Dyspnea, Edema, Lt Headedness, Other Objective-Cardiology Exam Last Set of Vital Signs Vital Signs 11/21/22 11/24/22 10:18 07:50 Temp 36.2 Pulse 76 Resp 18 B/P (MAP) 154/81 (105) Pulse Ox 97 O2 Delivery Room Air O2 Flow Rate 0.00 I&O Intake and Output 11/24/22 00:00 Intake Total 1680 ml Balance 1680 ml Intake Oral 1680 ml # Voids 6 # Bowel Movements 1 General: Alert, Oriented X3, Cooperative HEENT: Atraumatic, PERRLA Neck: Supple, No JVD Lungs: Clear to Auscultation, Normal Air Movement Heart: Normal S1, Normal S2, Other (irregularly irregular) Abdomen: Soft, No Tenderness Extremities: No Clubbing Skin: No Rashes Neuro: Normal Speech, Cranial Nerves 3-12 NL Psych/Mental Status: Mental Status NL, Mood NL A/P-Cardiology Admission Diagnosis Syncope Atrial fibrillation Hip fracture Chest pain Assessment/Plan Syncope, unknown etiology, most probably labile hypertension. Resulted in hip fracture Patient is being monitored on telemetry New loop monitor was implanted on November 23, 2022. Continue to monitor Right-sided hip fracture, hip surgery on November 18, 2022. Receiving physical therapy. Chest pain, nonspecific etiology, has been having chronic chest pain on and off. Feeling better. No further episodes of chest pain were reported. Continue to monitor Permanent atrial fibrillation with variable response, had an episode of aberrant conduction, seen by Dr. Emerson, had a loop recorder implanted in November 2018, having multiple episodes of atrial fibrillation and pauses. Continue to monitor [id number] score is 3, yearly risk of stroke without oral anticoagulation is 3.2 percent. Patient is maintained on Xarelto. Had previous trauma to the face secondary to falling, Restart Xarelto when deemed reasonable by the surgeon Episodes of dizziness with exertion, reporting worsening symptoms recently, has history of atrial fibrillation and questionable sinus node dysfunction Continue to monitor Coronary artery disease, cardiac catheterization was done in August 2015 showing mild ectasia in the proximal LAD with slow flow in the proximal LAD at otherwise small vessel disease no significant obstructive disease. Had another cardiac catheterization done in March 2019 after having an abnormal stress test showing coronary ectasia, no change compared to 2015. Currently EKG did not show any acute abnormality on November 17, 2022. Continue to monitor 2D Echo done on November 18, 2022 with ejection fraction 60 to 65%, PA pressure 40 to 45 mmHg, mild mitral regurgitation moderate tricuspid regurgitation. Mild bilateral nonobstructive carotid artery stenosis, continue to monitor COPD, obstructive sleep apnea, seen by Dr. Boston in the past. Managed by primary care physician Hypertension, better controlled Monitor blood pressure Hyperlipidemia, had lab work done with mild lab. I will obtain copy of the results Ovarian cancer, had abdominal extensive surgery, recurrent malignancy, Moderately differentiated carcinoma although very status post total abdominal hysterectomy/BSO and partial colectomy in August 2020, CEA 125 is elevated, CEA normal, receiving carbo plus Taxol. Reporting repeat scans showing improvement. Hypothyroidism managed by primary care physician Prediabetes, patient was educated on diet and weight loss. Obesity, BMI 39, we discussed weight loss and diet ANSON POMPA MD November 24, 2022 08:20
[2022-11-24] MEDS: meTOprolol TARTRATE 50 MG (LOPRESSOR) TAB PO SCH ×2 (09:53→21:31)
[2022-11-24] MEDS: PANTOPRAZOLE 40 MG (PROTONIX) TAB PO SCH (09:54)
[2022-11-24] MEDS: IRON SUCROSE 200 MG/10 ML (VENOFER) VIAL IV SCH (09:54)
[2022-11-24] MEDS: LEVOTHYROXINE 125 MCG (LEVOTHROID) TABLET PO SCH (09:54)
[2022-11-24] MEDS: CELECOXIB 100 MG (CeleBREX) CAP PO SCH ×2 (09:54→21:31)
[2022-11-24] MEDS: amLODIPine 5 MG (NORVASC) TAB PO SCH (09:54)
[2022-11-24] MEDS: FLUTICASONE NASAL SPRAY (FLONASE) 16 GM BTL NS SCH (09:55)
--- NOTE | 2022-11-24 10:47 | Physical Therapy Daily Note ---
PT Daily Note-Current Subjective Patient agrees to PT. Multiple family members present. Pain Numeric Pain Scale: 8 Location: Right Location Body Site: Hip Pain Description: Acute Section J - Health Conditions 1. Rarely or not at all 2. Occasionally 3. Frequently 4. Almost constantly 8. Unable to answer Pain Effect on Sleep: 2 Pain Interference with Therapy: 2 Pain Interference w/Day-to-Day: 2 Transfers SCALE: Activities may be completed with or without assistive devices. 5-Xucisemwcy-oyiqqpc completes the activity by him/herself with no assistance from a helper. 5-Set-up or Clean-up Assistance-helper sets up or cleans up; patient completes activity. [place] assists only prior to or following the activity. 4-Supervision or Touching Assistance-helper provides verbal cues and/or touching/steadying and/or contact guard assistance as patient completes activity. Assistance may be provided throughout the activity or intermittently. 3-Partial/Moderate Assistance-helper does LESS THAN HALF the effort. [place] lifts, holds or supports trunk or limbs, but provides less than half the effort. 2-Substantial/Maximal Assistance-helper does MORE THAN HALF the effort. [place] lifts or holds trunk or limbs and provides more than half the effort. 2-Fnhmrdhud-lmtdeg does ALL the effort. Patient does none of the effort to complete the activity. Or, the assistance of 2 or more helpers is required for the patient to complete the activity. If activity was not attempted, code reason: 7-Patient Refused. 9-Not Applicable-not attempted and the patient did not perform the activity before the current illness, exacerbation or injury. 10-Not Attempted due to Environmental Limitations-(lack of equipment, weather restraints, etc.). 88-Not Attempted due to Medical Conditions or Safety Concerns. Sit to Stand (QC): 4 Chair/Znx-sz-Qgpkc Xfer(QC): 4 Weight Bearing Right Lower Extremity: Right Partial Weight Bearing Left Lower Extremity: Left Full Weight Bearing Has to be reminded for PWB right LE Gait Training Distance: 250' Walk 10 feet (QC): 4 Walk 50 ft with 2 Turns(QC): 4 Walk 150 ft (QC): 4 Gait Assistive Device: FWW slow, antalgic gait sequence with VC's for body placement in FWW Exercises Seated Therapy Exercises: Ankle pumps, Long arc quads Seated Reps: 15 Assessment Patient tolerated treatment and remains up in recliner with needs met. Patient had increase c/o arm pain with ambulation due to body placement in FWW. PT It Project Manager Goals Long-Term Goals PT Long-Term Goals Time Frame: December 16, 2022 Roll Left & Right (QC): 4 Sit to Lying (QC): 4 Lying-Sitting on Side/Bed(QC): 4 Sit to Stand (QC): 4 Chair/Ftm-je-Mllop Xfer(QC): 4 Toilet Transfer (QC): 4 Does the Patient Walk: Yes Walk 10 feet (QC): 3 Walk 50ft with 2 Turns (QC): 3 Walk 150 ft (QC): 3 1 Step (curb) (QC): 3 4 Steps (QC): 3 PT Plan Treatment/Plan Treatment Plan: Continue Plan of Care Treatment Plan: Bed Mobility, Education, Functional Activity [place], Functional Strength, Group Therapy, Gait, Safety, Therapeutic Exercise, Transfers Treatment Duration: December 16, 2022 Frequency: 11 times per week Estimated Hrs Per Day: .25 hour per day Patient and/or Family Agrees t: Yes Time Time In: 911 Time Out: 930 DATE: November 24, 2022 Total Billed Treatment Time: 19 Total Billed Treatment 1 visit FA 19 min IAN KEYS PT November 24, 2022 10:47
--- NOTE | 2022-11-24 11:04 | Occupational Ther Daily Note ---
OT Current Status-Daily Note Subjective Patient agrees to therapy, therapist closes door during entry and exit of patient room to provide noise reduction to fellow hospital patients, therapist provided safe navigational instruction around great grand children and other obstacles in patient room. Mental Status/Objective Patient Orientation: Person, Situation ADL-Treatment Therapy Code Descriptions/Definitions Functional [place] Measure: 0=Not Assessed/NA 4=Minimal Assistance 1=Total Assistance 5=Supervision or Setup 2=Maximal Assistance 6=Modified [place] 3=Moderate Assistance 7=Complete IndependenceSCALE: Activities may be completed with or without assistive devices. 5-Lxhqfnvugu-umgibhk completes the activity by him/herself with no assistance from a helper. 5-Set-up or Clean-up Assistance-helper sets up or cleans up; patient completes activity. [place] assists only prior to or following the activity. 4-Supervision or Touching Assistance-helper provides verbal cues and/or touching/steadying and/or contact guard assistance as patient completes activity. Assistance may be provided throughout the activity or intermittently. 3-Partial/Moderate Assistance-helper does LESS THAN HALF the effort. [place] lifts, holds or supports trunk or limbs, but provides less than half the effort. 2-Substantial/Maximal Assistance-helper does MORE THAN HALF the effort. [place] lifts or holds trunk or limbs and provides more than half the effort. 0-Tcquurakx-lsfqfk does ALL the effort. Patient does none of the effort to complete the activity. Or, the assistance of 2 or more helpers is required for the patient to complete the activity. If activity was not attempted, code reason: 7-Patient Refused. 9-Not Applicable-not attempted and the patient did not perform the activity before the current illness, exacerbation or injury. 10-Not Attempted due to Environmental Limitations-(lack of equipment, weather restraints, etc.). 88-Not Attempted due to Medical Conditions or Safety Concerns. Eating (QC): 6 Oral Hygiene (QC): 5 (sitting at chair level) Shower/Bathe Self (QC): 7 (patient room is currently occupied w/ several visitors) Upper Body Dressing (QC): 5 (handed to patient) Lower Body Dressing (QC): 4 On/Off Footwear: 4 (required encourement to perfom ) Toileting Hygiene (QC): 4 Toilet Transfer (QC): 4 (Patient safety distracted w/ amount of interaction in enviromnment) Other Treatment 15 reps of arm chair push ups, requires mirror demo to initiate exercise Education OT Patient Education: Correct positioning, Modified ADL techniques, Progress toward Goal/Update tx plan, Purpose of tx/functional activities, Reviewed pr ecautions, Rehab process, Safety issues, Transfer techniques Teaching Recipient: Patient, Family (family education provide for patient safety w/ mobility, keep pathways clear an davoid sudden abrupt crossing of patient pathway) Teaching Methods: Demonstration, Discussion Response to Teaching: Reinforcement Needed OT Certified Ski Patroller Goals Certified Ski Patroller Goals Eating (QC): 6 Oral Hygiene (QC): 6 Toileting Hygiene (QC): 5 Shower/Bathe Self (QC): 4 Upper Body Dressing (QC): 5 Lower Body Dressing (QC): 4 On/Off Footwear (QC): 4 1=Demonstrate adherence to instructed precautions during ADL tasks. 2=Patient will verbalize/demonstrate understanding of assistive de vices/modifications for ADL. 3=Patient will improve strength/tolerance for activity to enable patient to perform ADL's. OT Education/Plan Problem List/Assessment Assessment: Decreased Activ Tolerance, Decreased Safety Aware, Decreased UE Strength, Impaired Self-Care Skills Discharge Recommendations Plan/Recommendations: Continue POC Treatment Plan/Plan of Care Patient would benefit from OT for education, treatment and training to promote independence in ADL's, mobility, safety and/or upper extremity function for ADL's. Plan of Care: ADL Retraining, Cognitive Retraining, Concurrent Therapy, Functional Mobility, Group Exercise/Act as Ind, UE Funct Exercise/Act Treatment Duration: November 28, 2022 Frequency: 3 times per week (3-5 times per week) Estimated Hrs Per Day: .25 hour per day Agreement: Yes Rehab Potential: Guarded Time Start Time: 09:11 Stop Time: 09:30 DATE: November 24, 2022 Total Time Billed (hr/min): 19 Billed Treatment Time ADL 19 min SALONI HART OT November 24, 2022 11:04
--- NOTE | 2022-11-24 13:28 | Physical Therapy Progress Note ---
Therapy Progress Note Patient refused PT this p.m. due to "being too tired". PT attempted to educate patient on importance of participating with skilled therapy to improve strength and mobility, however, patient closed her eyes and would not respond. RN notified. 1 ref IAN KEYS PT November 24, 2022 13:28
[2022-11-24 16:13] VITALS: BP 141/97
[2022-11-24] MEDS: RIVAROXABAN 20 MG TABLET (XARELTO) PO SCH (17:21)
[2022-11-24] MEDS: HYDROcodone/APAP 5 MG/325 MG (LORTAB) TAB PO PRN (17:25)
--- NOTE | 2022-11-24 18:58 | Progress Note - Hospitalist ---
Subjective HPI/CC On Admission Date Seen by Provider: November 24, 2022 Time Seen by Provider: 09:55 Pt is a 77yoCF who presented to the ER due to hip pain. She gives a limited and sometimes varyign history. She has no family at bedside and when asked what brought her to the hospital she stated and ambulance and needed clarification to further elaborate on why an ambulance was summoned. She told me she has been getting dizzy recently but has not had any syncopal episodes until yesterday. (she told the ER and her cloth inspector she has had multiple syncopal episodes though.) She states she was standing up to go to the bathroom and suddenly felt dizzy and then passed out. She then couldn't get up and walk due to the pain and so they called the ambulance. She was found to have an right intertrochanteric hip fractuce and admitted for operative repair. Subjective/Events-last exam She is feeling ok. She has no other issues. Objective Exam Vital Signs Vital Signs Date Time Temp Pulse Resp B/P (MAP) Pulse Ox O2 Delivery O2 Flow Rate FiO2 11/24/22 16:13 37.0 76 18 141/97 (112) 93 Room Air 11/21/22 10:18 0.00 Capillary Refill : Less Than 3 Seconds General Appearance: No Apparent Distress, Obese Respiratory: Lungs Clear, No Respiratory Distress Cardiovascular: Regular Rate, Rhythm, No Murmur Gastrointestinal: Normal Bowel Sounds, Soft Extremity: Normal Inspection, No Pedal Edema Neurologic/Psychiatric: Alert, Normal Mood/Affect Results/Procedures Lab Patient resulted labs reviewed. Imaging: Reviewed Imaging Report Assessment/Plan Assessment and Plan Assess & Plan/Chief Complaint Right hip fracture s/p surgical repair Dr Sun following Pain regimen Bowel regimen PT/OT IRF accepted, awaiting insurance approval Anemia Hgb improved s/p 1 unit PRBC Continue Xarelto Syncope A fib HTN CAD HLD Hypothyroidism Continue home meds as able Cardiology following Loop recorder placed DVT ppx: Xarelto Diagnosis/Problems Diagnosis/Problems (1) Closed intertrochanteric fracture of right hip Status: Acute Qualifiers: Encounter type: initial encounter Fracture alignment: displaced Qualified Codes: S72.141A - Displaced intertrochanteric fracture of right femur, initial encounter for closed fracture (2) Fall on same level Status: Acute Qualifiers: Encounter type: initial encounter Qualified Codes: W18.30XA - Fall on same level, unspecified, initial encounter (3) Anticoagulated Status: Acute (4) Anemia Status: Acute (5) Debility Status: Acute SALINAS BARROW MD November 24, 2022 18:58
[2022-11-24] MEDS: MONTELUKAST 10 MG (SINGULAIR) TAB PO SCH (21:31)
[2022-11-24] MEDS: traZODone 150 MG (DESYREL) TABLET PO SCH (21:31)
[2022-11-24 23:09] VITALS: BP 122/59
[2022-11-25 01:00] VITALS: BP 165/92
[2022-11-25 07:50] VITALS: BP 180/96
--- NOTE | 2022-11-25 08:45 | Cardiology Progress Note ---
Subjective Date Seen by Provider: November 25, 2022 Time Seen by Provider: 08:43 Subjective/Events-last exam Patient was seen at bedside, laying down comfortably, feeling better Still complaining of fatigue and loss of energy Review of Systems General: No Chills, No Night Sweats; Fatigue; No Malaise, No Appetite, No Other HEENT: No Head Aches, No Visual Changes, No Eye Pain, No Ear Pain, No Dysphasia, No Sinus Congestion, No Post Nasal Drip, No Sore Throat, No Other Pulmonary: No Dyspnea, No Cough, No Pleuritic Chest Pain, No Other Cardiovascular: No: Chest Pain, Palpitations, Orthopnea, Paroxysmal Noc. Dyspnea, Edema, Lt Headedness, Other Objective-Cardiology Exam Last Set of Vital Signs Vital Signs 11/24/22 11/25/22 23:09 07:50 Temp 36.8 Pulse 102 Resp 18 B/P (MAP) 180/96 (124) Pulse Ox 95 O2 Delivery Room Air O2 Flow Rate 0.00 0.00 I&O Intake and Output 11/25/22 00:00 Intake Total 1740 ml Balance 1740 ml Intake Oral 1740 ml # Voids 6 General: Alert, Oriented X3, Cooperative HEENT: Atraumatic, PERRLA Neck: Supple, No JVD Lungs: Clear to Auscultation, Normal Air Movement Heart: Normal S1, Normal S2, Other (irregularly irregular) Abdomen: Soft, No Tenderness Extremities: No Clubbing Skin: No Rashes Neuro: Normal Speech, Cranial Nerves 3-12 NL Psych/Mental Status: Mental Status NL, Mood NL Results Lab Laboratory Tests Test 11/24/22 12:57 Range/Units Lab Scanned Report Transfusion Reaction Form [id number] A/P-Cardiology Admission Diagnosis Syncope Atrial fibrillation Hip fracture Chest pain Assessment/Plan Syncope, unknown etiology, most probably labile hypertension. Resulted in hip fracture Patient is being monitored on telemetry New loop monitor was implanted on November 23, 2022. Continue to monitor Hypertension, poor control, will accept elevated blood pressure to minimize the chances of syncope Right-sided hip fracture, hip surgery on November 18, 2022. Receiving physical therapy. Chest pain, nonspecific etiology, has been having chronic chest pain on and off. Feeling better. No further episodes of chest pain were reported. Continue to monitor Permanent atrial fibrillation with variable response, had an episode of aberrant conduction, seen by Dr. Emerson, had a loop recorder implanted in November 2018, having multiple episodes of atrial fibrillation and pauses. Continue to monitor [id number] score is 3, yearly risk of stroke without oral anticoagulation is 3.2 percent. Patient is maintained on Xarelto. Had previous trauma to the face secondary to falling, Restart Xarelto when deemed reasonable by the surgeon Episodes of dizziness with exertion, reporting worsening symptoms recently, has history of atrial fibrillation and questionable sinus node dysfunction Continue to monitor Coronary artery disease, cardiac catheterization was done in August 2015 showing mild ectasia in the proximal LAD with slow flow in the proximal LAD at otherwise small vessel disease no significant obstructive disease. Had another cardiac catheterization done in March 2019 after having an abnormal stress test showing coronary ectasia, no change compared to 2015. Currently EKG did not show any acute abnormality on November 17, 2022. Continue to monitor 2D Echo done on November 18, 2022 with ejection fraction 60 to 65%, PA pressure 40 to 45 mmHg, mild mitral regurgitation moderate tricuspid regurgitation. Mild bilateral nonobstructive carotid artery stenosis, continue to monitor COPD, obstructive sleep apnea, seen by Dr. Boston in the past. Managed by primary care physician Hyperlipidemia, continue to monitor Ovarian cancer, had abdominal extensive surgery, recurrent malignancy, Moderately differentiated carcinoma although very status post total abdominal hysterectomy/BSO and partial colectomy in August 2020, CEA 125 is elevated, CEA normal, receiving carbo plus Taxol. Reporting repeat scans showing improvement. Hypothyroidism managed by primary care physician Prediabetes, patient was educated on diet and weight loss. Obesity, BMI 39, we discussed weight loss and diet ANSON POMPA MD November 25, 2022 08:45
[2022-11-25] MEDS ORDERED: amLODIPine 5 MG (NORVASC) TAB PO SCH (09:00)
[2022-11-25] MEDS: HYDROcodone/APAP 5 MG/325 MG (LORTAB) TAB PO PRN (09:13)
[2022-11-25] MEDS: meTOprolol TARTRATE 50 MG (LOPRESSOR) TAB PO SCH (09:13)
[2022-11-25] MEDS: CELECOXIB 100 MG (CeleBREX) CAP PO SCH (09:14)
[2022-11-25] MEDS: FLUTICASONE NASAL SPRAY (FLONASE) 16 GM BTL NS SCH (09:14)
[2022-11-25] MEDS: PANTOPRAZOLE 40 MG (PROTONIX) TAB PO SCH (09:14)
[2022-11-25] MEDS: LEVOTHYROXINE 125 MCG (LEVOTHROID) TABLET PO SCH (09:20)
--- NOTE | 2022-11-25 10:04 | Occupational Ther Daily Note ---
OT Current Status-Daily Note Subjective On OT arrival, patient ambulating exiting bathroom w/ FWW. Patient in room, OT educated patient and spouse of safety and use of call lights and bed/chair alarm. Patient reports he turned alarm off because he was in the room. Patient uses ADS for ambulation and is unable to assist patie nt in functional tasks safely. during OT intervention patient spouse reports that OT is mean because OT is skilling patient in safe navigation w/ FWW around obstacles and using problem solving strategies for safe route planning/ pain tolerance/ energy expenditure and activity tolerance. [place] agrees to continue w/ treatment session. OT provided written instruction for use of call light, alarm and assist of one staff person for transfer and mobility on white write board as well as notifying nurse team Mental Status/Objective Patient Orientation: Person, Place, Time, Situation Attachments: Other-See Comments (chair alarm) ADL-Treatment Therapy Code Descriptions/Definitions Functional [place] Measure: 0=Not Assessed/NA 4=Minimal Assistance 1=Total Assistance 5=Supervision or Setup 2=Maximal Assistance 6=Modified [place] 3=Moderate Assistance 7=Complete IndependenceSCALE: Activities may be completed with or without assistive devices. 3-Nxoyhupqrb-jottuba completes the activity by him/herself with no assistance from a helper. 5-Set-up or Clean-up Assistance-helper sets up or cleans up; patient completes activity. [place] assists only prior to or following the activity. 4-Supervision or Touching Assistance-helper provides verbal cues and/or touching/steadying and/or contact guard assistance as patient completes activity. Assistance may be provided throughout the activity or intermittently. 3-Partial/Moderate Assistance-helper does LESS THAN HALF the effort. [place] lifts, holds or supports trunk or limbs, but provides less than half the effort. 2-Substantial/Maximal Assistance-helper does MORE THAN HALF the effort. [place] lifts or holds trunk or limbs and provides more than half the effort. 4-Trohzbvfb-pcxphy does ALL the effort. Patient does none of the effort to complete the activity. Or, the assistance of 2 or more helpers is required for the patient to complete the activity. If activity was not attempted, code reason: 7-Patient Refused. 9-Not Applicable-not attempted and the patient did not perform the activity before the current illness, exacerbation or injury. 10-Not Attempted due to Environmental Limitations-(lack of equipment, weather restraints, etc.). 88-Not Attempted due to Medical Conditions or Safety Concerns. Eating (QC): 7 (Does not like the breakfast provided, reports it makes her stomach upset and has request cream of wheat.) Oral Hygiene (QC): 4 (standing at sink in bathroom w/ FWW and VCs for safety and use of FWW w/ turns and proximation w/ body ) Shower/Bathe Self (QC): 7 (declined, patient is inconsistent in bathing opportunity) Upper Body Dressing (QC): 5 Lower Body Dressing (QC): 4 (C/O pain with lifitn LE to don garments, no c/o pain w/ ambulation or transfer. one mild LOB with rahulenriquenica castro able to regain wobble w/o physical asssit from OT) On/Off Footwear: 4 (Use of hip kit d/t patient c/o pain lifting LE for garment application) Toileting Hygiene (QC): 4 (see comments of grooming) Toilet Transfer (QC): 4 Instructed in use of it operations analyst and object retrieval w/ FWW, Required therapeutic intervention for safe approximation of body to FWW, safe B hand /UE pressure to FWW handles. Red therapy band provided for BUE ther ex. Matthieu reports she has a band at home and knows her own HEP. Education OT Patient Education: Correct positioning, Exercise program, Instructions to caregiver, Modified ADL techniques, Progress toward Goal/Update tx plan, Purpose of tx/functional activities, Reviewed precautions, Rehab process, Safety issues, Transfer techniques, Use of adapted equipment Teaching Recipient: Patient, Significant Other Teaching Methods: Demonstration, Discussion Response to Teaching: Verbalize Understanding, Reinforcement Needed OT Usp Goals Gameplay Engineer Goals Eating (QC): 6 Oral Hygiene (QC): 6 Toileting Hygiene (QC): 5 Shower/Bathe Self (QC): 4 Upper Body Dressing (QC): 5 Lower Body Dressing (QC): 4 On/Off Footwear (QC): 4 1=Demonstrate adherence to instructed precautions during ADL tasks. 2=Patient will verbalize/demonstrate understanding of assistive devices/modifications for ADL. 3=Patient will improve strength/tolerance for activity to enable patient to perform ADL's. OT Education/Plan Problem List/Assessment Assessment: Decreased Activ Tolerance, Decreased Safety Aware, Impaired C ognition, Impaired Self-Care Skills Discharge Recommendations Plan/Recommendations: Continue POC Treatment Plan/Plan of Care Patient would benefit from OT for education, treatment and training to promote independence in ADL's, mobility, safety and/or upper extremity function for ADL's. Plan of Care: ADL Retraining, Cognitive Retraining, Concurrent Therapy, Functional Mobility, Group Exercise/Act as Ind, UE Funct Exercise/Act Treatment Duration: November 28, 2022 Frequency: 3 times per week (3-5 times per week) Estimated Hrs Per Day: .25 hour per day Agreement: Yes Rehab Potential: Guarded Time Start Time: 09:39 Stop Time: 10:15 DATE: November 25, 2022 Total Time Billed (hr/min): 36 Billed Treatment Time ADL 2 36 min SALONI HART OT November 25, 2022 10:04
--- NOTE | 2022-11-25 10:35 | Physical Therapy Daily Note ---
PT Daily Note-Current Subjective Patient lying supine in bed upon PT arrival, agreeable to treatment. Rates pain at 10/10 currently in right hip. Nurse notified and reports patient did not have any pain medicine yesterday as she did not ask for any. Pain Section J - Health Conditions 1. Rarely or not at all 2. Occasionally 3. Frequently 4. Almost constantly 8. Unable to answer Pain Effect on Sleep: 2 Pain Interference with Therapy: 2 Pain Interference w/Day-to-Day: 2 Mental Status Patient Orientation: Person, Place, Time, Situation Transfers SCALE: Activities may be completed with or without assistive devices. 0-Swmzbolnmc-dphpvpg completes the activity by him/herself with no assistance from a helper. 5-Set-up or Clean-up Assistance-helper sets up or cleans up; patient completes activity. Langtry assists only prior to or following the activity. 4-Supervision or Touching Assistance-helper provides verbal cues and/or touching/steadying and/or contact guard assistance as patient completes activity. Assistance may be provided throughout the activity or intermittently. 3-Partial/Moderate Assistance-helper does LESS THAN HALF the effort. Langtry lifts, holds or supports trunk or limbs, but provides less than half the effort. 2-Substantial/Maximal Assistance-helper does MORE THAN HALF the effort. Langtry lifts or holds trunk or limbs and provides more than half the effort. 0-Kttrugbnt-garksy does ALL the effort. Patient does none of the effort to complete the activity. Or, the assistance of 2 or more helpers is required for the patient to complete the activity. If activity was not attempted, code reason: 7-Patient Refused. 9-Not Applicable-not attempted and the patient did not perform the activity before the current illness, exacerbation or injury. 10-Not Attempted due to Environmental Limitations-(lack of equipment, weather restraints, etc.). 88-Not Attempted due to Medical Conditions or Safety Concerns. Roll Left & Right (QC): 4 Sit to Lying (QC): 4 Lying to Sitting/Side of Bed(Q: 4 Sit to Stand (QC): 4 Chair/Vxx-hy-Vnkjp Xfer(QC): 4 Toilet Transfer (QC): 4 Weight Bearing Right Lower Extremity: Right Partial Weight Bearing Left Lower Extremity: Left Full Weight Bearing Has to be reminded for PWB right LE Gait Training Does the Patient Walk?: Yes Distance: 120 feet Walk 10 feet (QC): 4 Walk 50 ft with 2 Turns(QC): 4 Gait Persons Needed: 1 Gait Assistive Device: FWW Exercises Supine Ex: Ankle pumps, Quad Set, Glut sets Supine Reps: 20 Seated Therapy Exercises: Long arc quads Seated Reps: 20 Assessment Current Status: Poor Progress Patient tolerated treatment poorly. Reports much more pain in the right hip this date. Patient performs LE therapeutic exercise as listed. SBA for all bed mobility and transfers. Patient ambulates 120 feet with FWW, with Verbal cues for safety, progression, balance and distance to FWW. Patient requested to return to room. Patient in chair post treatment with all needs met, nursing notified, family in the room and chair alarm activated. 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 Charter Clerk Goals Nursing Home Goals PT Airplane Charter Clerk Goals Time Frame: December 16, 2022 Roll Left & Right (QC): 4 Sit to Lying (QC): 4 Lying-Sitting on Side/Bed(QC): 4 Sit to Stand (QC): 4 Chair/Qta-pt-Blzjd Xfer(QC): 4 Toilet Transfer (QC): 4 Does the Patient Walk: Yes Walk 10 feet (QC): 3 Walk 50ft with 2 Turns (QC): 3 Walk 150 ft (QC): 3 1 Step (curb) (QC): 3 4 Steps (QC): 3 PT Plan Treatment/Plan Treatment Plan: Continue Plan of Care Treatment Plan: Bed Mobility, Education, Functional Activity Luzma, Functional Strength, Group Therapy, Gait, Safety, Therapeutic Exercise, Transfers Treatment Duration: December 16, 2022 Frequency: 11 times per week Estimated Hrs Per Day: .25 hour per day Patient and/or Family Agrees t: Yes Safety Risks/Education Patient Education: Gait Training, Transfer Techniques Teaching Recipient: Patient Teaching Methods: Demonstration, Discussion Response to Teaching: Verbalize Understanding, Return Demonstration Time Time In: 849 Time Out: 913 DATE: November 25, 2022 Total Billed Treatment Time: 24 Total Billed Treatment Visit, Gait, Ex KATY ODRANTES PT November 25, 2022 10:35
--- NOTE | 2022-11-25 10:50 | Progress Note ---
Standard Progress Note Progress Notes/Assess & Plan Date Seen by a Provider: November 25, 2022 Time Seen by a Provider: 10:49 Progress/Assessment & Plan no complaints Laboratory Tests Test 11/19/22 05:05 Range/Units Hemoglobin 9.4 L 11.5-16.0 g/dL Hematocrit 29 L 35-52 % Vital Signs Date Time Temp Pulse Resp B/P (MAP) Pulse Ox O2 Delivery O2 Flow Rate FiO2 11/19/22 07:41 36.8 75 18 143/67 (92) 97 Nasal Cannula 1.00 11/19/22 03:19 36.6 75 18 134/67 (89) 97 Nasal Cannula 2.00 11/19/22 01:00 70 11/18/22 23:11 36.0 92 18 118/64 (82) 98 Nasal Cannula 2.00 11/18/22 21:15 Room Air 11/18/22 19:57 36.3 68 16 125/77 (93) 98 Nasal Cannula 2.00 11/18/22 19:00 77 11/18/22 16:05 36.4 61 16 140/67 (91) 96 Nasal Cannula 2.00 11/18/22 16:05 58 11/18/22 12:20 Nasal Cannula 2.00 11/18/22 12:10 36.6 12 125/81 (96) 98 Nasal Cannula 2.00 11/18/22 12:05 Room Air 11/18/22 12:00 16 131/68 (89) 95 Room Air 11/18/22 12:00 35.9 62 19 144/65 (91) 98 Nasal Cannula 2.00 11/18/22 11:50 12 122/75 (91) 100 OxyMask 8 11/18/22 11:50 OxyMask 8 11/18/22 11:40 12 125/67 (86) 99 OxyMask 8 11/18/22 11:35 OxyMask 8 11/18/22 11:30 12 142/63 (89) 100 OxyMask 8 11/18/22 11:19 36.5 12 118/70 (86) 100 OxyMask 8 11/18/22 11:19 OxyMask 8 11/18/22 08:00 36.4 63 19 155/74 (101) 96 Room Air I & O 11/19/22 07:00 Intake Total 2500 ml Output Total 875 ml Balance 1625 ml R hip dressing intact intact DF and PF of toes and ankle sensation intact throughout s/p I M carlos right hip PT/OT Final Diagnosis no complaints r hip dressing clean and dry no calf tenderness neg Jeff's s/p Rhip IM carlos await JUAN OSORIO MD November 25, 2022 10:50
--- NOTE | 2022-11-25 14:15 | Discharge Summary ---
Discharge Summary Hospital Course Problems/Dx: (1) Closed intertrochanteric fracture of right hip Status: Acute Qualifiers: Qualified Codes: S72.141A - Displaced intertrochanteric fracture of right femur, initial encounter for closed fracture (2) Fall on same level Status: Acute Qualifiers: Qualified Codes: W18.30XA - Fall on same level, unspecified, initial encounter (3) Anticoagulated Status: Acute (4) Anemia Status: Acute (5) Debility Status: Acute Hospital Course Date of Admission: November 17, 2022 at 17:15 Admission Diagnosis : Closed right hip fracture Family Physician/Provider: Yash Victoria MD Date of Discharge: 11/25/22 Discharge Diagnosis: Closed right hip fracture Hospital Course: Shweta Simental is a 77 year old female who was admitted after a fall with a hip fracture. Dr. Sun was consulted and performed intramedullary nail placment. Her course was complicated by anemia and required one unit PRBC transfusion. She also had possible syncope leading to her event and a loop recorder was placed by Cardiology. She was debilitated and was discharged to inpatient rehab for ongoing therapy and medical treatment. Labs and Pending Lab Test: Microbiology 11/18/22 MRSA Screen - Final, Complete MRSA not isolated Home Meds Active Reported Xarelto (Rivaroxaban) 20 Mg Tablet 20 Mg PO HS LAST FILLED 01-22-2022 #90/90 DAY SUPPLY Fluticasone Propionate 50 Mcg/Actuation [place].susp 1-2 Sprays NSEACH DAILY Amlodipine Besylate 10 Mg Tablet 5 Mg PO DAILY TAKES OF A 10MG LAST FILLED 04-19-2022 #30/60 DAY SUPPLY Trazodone HCl 300 Mg Tablet 300 Mg PO HS Metoprolol Tartrate 50 Mg Tablet 50 Mg PO BID Pantoprazole Sodium 40 Mg Tablet.dr 40 Mg PO DAILY LAST FILLED 03-05-2022 #30/30 DAY SUPPLY Ferosul (Ferrous Sulfate) 325 Mg (65 Mg Iron) Tablet 325 Mg PO DAILY LAST FILLED 06-24-2022 #90/90 DAY SUPPLY Montelukast Sodium 10 Mg Tablet 10 Mg PO DAILY PRN Atorvastatin Calcium 10 Mg Tablet 10 Mg PO HS Levothyroxine Sodium 125 Mcg Tablet 125 Mcg PO DAILY LAST FILLED 01-12-2022 #90/90 DAY SUPPLY Assessment/Pt Instructions See instructions Discharge Planning: >30 minutes discharge planning Discharge Instructions Discharge Diet: No Restrictions Activity as Tolerated: Yes Consultations Orthopedic surgery, Cardiology Discharge Physical Examination Vital Signs Vital Signs Date Time Temp Pulse Resp B/P (MAP) Pulse Ox O2 Delivery O2 Flow Rate FiO2 11/25/22 13:17 87 11/25/22 07:50 36.8 18 180/96 (124) 95 Room Air 11/24/22 23:09 0.00 0.00 Allergies: Coded Allergies: Penicillins (Verified Allergy, Mild, 01/04/14) Spwmufj-AFD-UmH Reductase Inhibitor (Verified Allergy, Mild, 01/04/14) codeine (Verified Allergy, Mild, PT HAS TOLERATED MORPHINE, 11/20/22) opium tincture (Verified Allergy, Mild, PT HAS TOLERATED MORPHINE, 11/20/22) tramadol (Verified Allergy, Mild, PT HAS TOLERATED MORPHINE, 11/20/22) Copy Copies To 1: YASH VICTORIA MD Discharge Summary Date of Admission November 17, 2022 at 17:15 Date of Discharge Discharge Date: November 25, 2022 Discharge Time: 14:10 Admission Diagnosis Right hip fracture Consults/Procedures Consulations Orthopedic surgery Procedures Right hip intramedullary nailing, loop recorder placement Discharge Diagnosis Right hip fracture (1) Closed intertrochanteric fracture of right hip Status: Acute Qualifiers: Qualified Codes: S72.141A - Displaced intertrochanteric fracture of right femur, initial encounter for closed fracture (2) Fall on same level Status: Acute Qualifiers: Qualified Codes: W18.30XA - Fall on same level, unspecified, initial encounter (3) Anticoagulated Status: Acute (4) Anemia Status: Acute (5) Debility Status: Acute SALINAS BARROW MD November 25, 2022 14:14
[2022-11-25 14:21] VITALS: BP 180/96
== END 2022-11-25 14:22 | DRG 481 ==
LOC: ER 12:54 → EDUNIT# 13:07 → 4TH 17:15 → ER 17:16 → 4TH 17:20
PROVIDERS: ADMIT Family Medicine; ATTEND Internal Medicine
PROC: 0QS636Z Reposition Right Upper Femur with Intramedullary Internal Fixation Device, Percutaneous Approach (ICD-10-PCS; principal; 2022-11-18 10:08)
PROC: 0JH632Z Insertion of Monitoring Device into Chest Subcutaneous Tissue and Fascia, Percutaneous Approach (ICD-10-PCS; 2022-11-21)
DX: S72.141A Displaced intertrochanteric fracture of right femur, initial encounter for closed fracture (principal); C79.9 Secondary malignant neoplasm of unspecified site; I48.21 Permanent atrial fibrillation; D64.9 Anemia, unspecified; R55 Syncope and collapse; I25.10 Atherosclerotic heart disease of native coronary artery without angina pectoris; E78.00 Pure hypercholesterolemia, unspecified; I11.0 Hypertensive heart disease with heart failure; G47.33 Obstructive sleep apnea (adult) (pediatric); R07.9 Chest pain, unspecified; G62.9 Polyneuropathy, unspecified; J44.9 Chronic obstructive pulmonary disease, unspecified; R32 Unspecified urinary incontinence; K21.9 Gastro-esophageal reflux disease without esophagitis; M81.0 Age-related osteoporosis without current pathological fracture; M19.90 Unspecified osteoarthritis, unspecified site; M79.7 Fibromyalgia; E03.9 Hypothyroidism, unspecified; H91.90 Unspecified hearing loss, unspecified ear; F41.9 Anxiety disorder, unspecified; I49.5 Sick sinus syndrome; I77.9 Disorder of arteries and arterioles, unspecified; R73.03 Prediabetes; I08.1 Rheumatic disorders of both mitral and tricuspid valves; E66.9 Obesity, unspecified; Z85.43 Personal history of malignant neoplasm of ovary; Z79.01 Long term (current) use of anticoagulants; Z87.891 Personal history of nicotine dependence; Z68.33 Body mass index [BMI] 33.0-33.9, adult; Z79.899 Other long term (current) drug therapy; Z88.5 Allergy status to narcotic agent; Z88.0 Allergy status to penicillin; Z91.09 Other allergy status, other than to drugs and biological substances; W18.30XA Fall on same level, unspecified, initial encounter
CPT/HCPCS: 33285; 36415; 51702; 70450; 71045; 72125; 76000; 80048; 80053; 82728; 83540; 83550; 83735; 83880; 84439; 84443; 84484; 85014; 85018; 85025; 85027; 85610; 85730; 86850; 86900; 86901; 86920; 87081; 93005; 93306; 94760; 96374

== ENCOUNTER 2022-11-25 13:02 | Inpatient (IN) | payer MEDICARE ==
[~2022-11-25] VITALS: Ht 170 cm; Wt 96.0 kg
[~2022-11-25 13:02] MED LIST changes: +METO50TA15 PO; +TRAZ300T3 PO
[2022-11-25 14:00] VITALS: BP 110/66
--- NOTE | 2022-11-25 14:47 | Occupational Therapy Eval ---
OT Evaluation-General/PLF Medical Diagnosis Admission Date November 25, 2022 at 13:30 Medical Diagnosis: s/p R IM carlos Onset Date: November 18, 2022 Therapy Diagnosis Therapy Diagnosis: decreased ADL status Height/Weight Height (Feet): 5 Height (Inches): 7.00 Weight (Pounds): 235 Weight (Ounces): 11.2 Weight Bear Status Weight Bearing Restriction: Partial Weight Bearing Location Restriction: R LE Referral Physician: Daysi Referral Reason: Evaluation/Treatment Medical History Pertinent Medical History: Dementia Additional Medical History asthma, afib, CAD, HTN, PVD, neuropathy, GERD, IBS, osteoporosis, arthritis, fibromyalgia, ovarian cancer, anxiety Current History ED 11/17/22 after a fall resulting in R hip fx. 11/18/22 s/p R IM carlos Social History Home: Single Level Current Living Status: Spouse Entry Into Home: Stairs Without Railing Steps Into Home: 1 Pt lives with spouse, granddaughter and 9 y.o great grandson ADL-Prior Level of Function SCALE: Activities may be completed with or without assistive devices. 5-Fhglunbodx-wnrscps completes the activity by him/herself with no assistance from a helper. 5-Set-up or Clean-up Assistance-helper sets up or cleans up; patient completes activity. Okay assists only prior to or following the activity. 4-Supervision or Touching Assistance-helper provides verbal cues and/or touching/steadying and/or contact guard assistance as patient completes activity. Assistance may be provided throughout the activity or intermittently. 3-Partial/Moderate Assistance-helper does LESS THAN HALF the effort. Okay lifts, holds or supports trunk or limbs, but provides less than half the effort. 2-Substantial/Maximal Assistance-helper does MORE THAN HALF the effort. Okay lifts or holds trunk or limbs and provides more than half the effort. 8-Tbrenlqsa-qrhfcu does ALL the effort. Patient does none of the effort to complete the activity. Or, the assistance of 2 or more helpers is required for the patient to complete the activity. If activity was not attempted, code reason: 7-Patient Refused. 9-Not Applicable-not attempted and the patient did not perform the activity before the current illness, exacerbation or injury. 10-Not Attempted due to Environmental Limitations-(lack of equipment, weather restraints, etc.). 88-Not Attempted due to Medical Conditions or Safety Concerns. ADL PLOF Comments Pt reports IND with ADLs and functional mobility at PLOF, no AD. She has a walk in shower with SC. Self Care: Independent Functional Cognition: Independent DME/Equipment: Bath Chair, Shower OT Current Status Subjective Pt agreeable to OT evaluation/tx, 01/25 pain in R hip. Pt initially unable to recall precautions, but after thinking about it, pt replied "50%" Mental Status/Objective Patient Orientation: Person, Confused, Place, Situation Current Glasses/Contacts: Yes Hearing Aids: No Dentures/Partials: No Hand Dominance: Right Upper Extremity ROM WFL, BUE shoulder flexion to approx 180 degrees Upper Extremity Coordination WFL Upper Extremity Sensation WFL Upper Extremity Strength grossly 4-/5 BUEs. ADL-Treatment Eating (QC): 6 Oral Hygiene (QC): 6 Shower/Bathe Self (QC): 4 (CGA sponge bath) Upper Body Dressing (QC): 5 Lower Body Dressing (QC): 3 (Min A with RLE due to pt threading in wrong pant leg) On/Off Footwear (QC): 4 (CGA, increased time and encouragement required. Pt propped RLE onto bed to don R sock) Toileting Hygiene (QC): 4 (CGA) Other Treatments Pt agreeable to OT evaluation/tx. Pt provided information about PLOF and home set up and participated in UE screen. Pt sat at sink to complete sponge bath and dressing. Pt transferred to toilet, completed toileting. OT assisted pt to [facility] common area via w/c. OT educated pt on UE exercises using moderate resistance red theraband. Pt able to complete 2x10 reps BUE horizontal abduction. Printed HEP left in pt's room to continue reviewing in future txs. PT present for evaluation, all needs met. CGA sit to/from stand and transfers using FWW. Education OT Patient Education: Correct positioning, Energy conservation, Modified ADL techniques, Progress toward Goal/Update tx plan, Purpose of tx/functional acti vities, Rehab process Teaching Recipient: Patient Response to Teaching: Verbalize Understanding BIMS CAM BIMS Expression of Ideas and Wants: Without Difficulty Understanding Verbal Content: Understands Brief Interview/Mental Status: Yes IRF LAURITA BIMS: IRF LAURITA BIMS Response (Comments) Value Repitition of Three Words Three 3 Recalls Socks No, Could Not Recall 0 Recalls Blue Yes, After Cueing (Color) 1 Recalls Bed No, Could Not Recall 0 Year Correct 3 Month Accurate Within 5 Days 2 Day Incorrect or No Answer 0 Total [address] Mental [address] No CAM Mental Status Change/Baseline: 0 Inattention: 0 Disorganized thinkin Altered level of consciousness: 0 OT Short Term Goals Short Term Goals Time Frame: December 04, 2022 Upper body dressin Lower body dressin Putting on/taking off footwear: 5 OT Engineering Program Analyst Goals Engineering Program Analyst Goals Time Frame: December 11, 2022 Eating (QC): 6 Oral Hygiene (QC): 6 Toileting Hygiene (QC): 6 Shower/Bathe Self (QC): 6 Upper Body Dressing (QC): 6 Lower Body Dressing (QC): 6 On/Off Footwear (QC): 6 Additional Goals: 1-Demonstrate ADL Tasks, 2-Verbalize Understanding, 3- ImproveStrength/Luzma 1=Demonstrate adherence to instructed precautions during ADL tasks. 2=Patient will verbalize/demonstrate understanding of assistive d evices/modifications for ADL. 3=Patient will improve strength/tolerance for activity to enable patient to perform ADL's. OT Education/Plan Problem List/Assessment Assessment: Decreased Activ Tolerance, Decreased UE Strength, Impaired Funct Balance, Impaired I ADL's, Impaired Self-Care Skills Discharge Recommendations Plan/Recommendations: Continue POC Treatment Plan/Plan of Care Patient would benefit from OT for education, treatment and training to promote independence in ADL's, mobility, safety and/or upper extremity function for A DL's. Plan of Care: ADL Retraining, Functional Mobility, Group Exercise/Act as Ind, UE Funct Exercise/Act Treatment Duration: December 11, 2022 Frequency: At least 5 of 7 days/Wk (IRF) Estimated Hrs Per Day: 1.5 hours per day Agreement: Yes Rehab Potential: Good Time Start Time: 13:17 Stop Time: 14:35 DATE: November 25, 2022 Total Time Billed (hr/min): 78 Billed Treatment Time 1, EVM (25'), ADL 4 (53') TITA POWERS OT November 25, 2022 14:47
--- NOTE | 2022-11-25 15:19 | Physical Therapy Evaluation ---
PT Evaluation-General Medical Diagnosis Admission Date November 25, 2022 at 13:30 Medical Diagnosis: s/p R IM carlos Onset Date: November 18, 2022 Therapy Diagnosis Therapy Diagnosis: R LE weakness, decreased functional mobility and ambulatoin Height/Weight Height (Feet): 5 Height (Inches): 7.00 Weight (Pounds): 235 Weight (Ounces): 11.2 Precautions Precautions/Isolations: Fall Prevention, Standard Precautions Weight Bear Status Right Lower Extremity: Right Partial Weight Bearing (PWB R LE 50%) Left Lower Extremity: Left Full Weight Bearing Pt edu on 50% PWB to the R LE with scale. Pt is able to abide by 50% PWB Referral Physician: Daysi Reason for Referral: Evaluation/Treatment, Strengthening, Gait Medical History Pertinent Medical History: Dementia Additional Medical History asthma, afib, CAD, HTN, PVD, neuropathy, GERD, IBS, osteoporosis, arthritis, fib romyalgia, ovarian cancer, anxiety Current History ED 11/17/22 after a fall resulting in R hip fx. 11/18/22 s/p R IM carlos with 50% PWB to the R LE Reviewed History: Yes Social History Home: Single Level Current Living Status: Spouse (and other family ) Entry Into Home: Stairs Without Railing PT Steps Into Home: 1 PT Steps Inside Home: 0 Prior Prior Level of Function SCALE: Activities may be completed with or without assistive devices. 8-Xslsuxtlxa-qbvrhel completes the activity by him/herself with no assistance from a helper. 5-Set-up or Clean-up Assistance-helper sets up or cleans up; patient completes activity. [place] assists only prior to or following the activity. 4-Supervision or Touching Assistance-helper provides verbal cues and/or touching/steadying and/or contact guard assistance as patient completes activity. Assistance may be provided throughout the activity or intermittently. 3-Partial/Moderate Assistance-helper does LESS THAN HALF the effort. [place] lifts, holds or supports trunk or limbs, but provides less than half the effort. 2-Substantial/Maximal Assistance-helper does MORE THAN HALF the effort. [place] lifts or holds trunk or limbs and provides more than half the effort. 9-Asdszbkkv-ymhvjj does ALL the effort. Patient does none of the effort to complete the activity. Or, the assistance of 2 or more helpers is required for the patient to complete the activity. If activity was not attempted, code reason: 7-Patient Refused. 9-Not Applicable-not attempted and the patient did not perform the activity before the current illness, exacerbation or injury. 10-Not Attempted due to Environmental Limitations-(lack of equipment, weather restraints, etc.). 88-Not Attempted due to Medical Conditions or Safety Concerns. Bed Mobility: 6 Transfers (B,C,W/C): 6 Gait: 6 Stairs: 6 Wheelchair Mobility: 9 Indoor Mobility (Ambulation): Independent Stairs: Independent Prior Devices Use: None Pt reports she was Ind with functional mobility at [facility] with no AD and driving. Single story home with 1 step and no HR to enter/exit home. Walk-in shower with grab bars. Tall toilet. PT Evaluation-Current Subjective Pt reports she is doing well and is agreeable to PT eval. Pt reports getting dizzy, and falling in her bedroom on 11/17/22 with R hip fx s/p R IM carlos placement on 11/18/22 with 50% PWB to the R LE. Pain Numeric Pain Scale: 5-Moderate Pain Location: Right Location Body Site: Hip Pain Description: Ache Section J - Health Conditions 1. Rarely or not at all 2. Occasionally 3. Frequently 4. Almost constantly 8. Unable to answer Pain Effect on Sleep: 4 Pain Interference with Therapy: 4 Pain Interference w/Day-to-Day: 4 Pt/Family Goals Safely return home and to [facility]. Objective Patient Orientation: Person, Place, Situation ROM/Strength ROM Upper Extremities WFL ROM Lower Extremities L LE ROM - WFL R LE ROM - decreased secondary to pain Strength Upper Extremities WFL Strength Lower Extremities L LE MMT - 3+/5 grossly R hip/knee MMT - 3-/5 Integumentary/Posture Integumentary R hip incision is well approximated with afsaneh and clean Bowel Incontinence: No Bladder Incontinence: No Sensory Vision: Functional Hearing: Functional Hand Dominance: Right Sensation Right Upper Extremit: Intact Sensation Left Upper Extremity: Intact Sensation Right Lower Extremit: Intact Sensation Left Lower Extremity: Intact Transfers Roll Left & Right (QC): 3 (Min/Mod A for R LE ) Sit to Lying (QC): 3 (Min/Mod A for R LE ) Lying to Sitting/Side of Bed(Q: 3 (Min/Mod A for R LE ) Sit to Stand (QC): 4 (CGA for transfer from bed and w/c and Min A for toilet transfer ) Chair/Mnf-bp-Mvfrs Xfer(QC): 4 (CGA for transfer from bed and w/c and Min A for toilet transfer) Toilet Transfer (QC): 3 (CGA for transfer from bed and w/c and Min A for toilet transfer) Car Transfer (QC): 3 (Min A for R LE ) Gait Does the Patient Walk?: Yes Mode of Locomotion: Wheelchair Anticipated Mode of Locomotion: Walk Walk 10 feet (QC): 4 (CGA with FWW ) Walk 50 ft with 2 Turns(QC): 4 (CGA with FWW ) Walk 150 ft (QC): 4 (CGA with FWW ) Walking 10ft/uneven surface-QC: 4 (CGA with FWW ) Distance: 150ft Gait Assistive Device: FWW Comments/Gait Description Antalgic gait pattern on the R LE; pt able to abide by 50% PWB to the R LE Wheelchair Training Does the Pt Use a Wheelchair?: Yes Distance: 150ft Wheel 50 ft with 2 turns (QC): 4 Wheel 150 ft (QC): 4 Stairs 1 Step (curb) (QC): 4 4 Steps (QC): 4 12 Steps (QC): 88 B handrail Balance Sitting Static: Good Sitting Dynamic: Good Standing Static: Good Standing Dynamic: Fair Picking up an Object (QC): 4 (with student success coach ) Special Test Comments [facility] standing balance scale: 3+/5 Assessment/Needs Pt tolerated PT eval well and would benefit from skilled PT to progress towards PLOF and safe d/c home. 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 ) Sit to Lying (QC): 6 (Pt will complete bed mobility and functional transfers with Mod I. ) Lying-Sitting on Side/Bed(QC): 6 (Pt will complete bed mobility and functional transfers with Mod I. ) Sit to Stand (QC): 6 (Pt will complete bed mobility and functional transfers with Mod I. ) Chair/Kfl-xc-Qmujm Xfer(QC): 6 (Pt will complete bed mobility and functional transfers with Mod I. ) Toilet/Commode Transfer (QC): 6 (Pt will complete bed mobility and functional transfers with Mod I. ) Car Transfer (QC): 5 Does the Patient Walk: Yes Walk 10 feet (QC): 6 (Pt will ambulate 350ft with the FWW and Mod I, in order to show progression towards PLOF. ) Walk 10ft-Uneven Surface(QC): 6 (Pt will ambulate 350ft with the FWW and Mod I, in order to show progression towards PLOF. ) Walk 50ft with 2 Turns (QC): 6 (Pt will ambulate 350ft with the FWW and Mod I, in order to show progression towards PLOF. ) Walk 150 ft (QC): 6 (Pt will ambulate 350ft with the FWW and Mod I, in order to show progression towards PLOF. ) Does the Pt use WC or Scooter?: Yes Wheel 50 feet with 2 turns (QC: 6 (Pt will be Mod I with w/c mobility. ) Type: Manual Wheel 150 feet: 6 (Pt will be Mod I with w/c mobility. ) Type: Manual 1 Step (curb) (QC): 6 (Pt will be Mod I with steps ) 4 Steps (QC): 6 (Pt will be Mod I with steps ) 12 Steps (QC): 6 (Pt will be Mod I with steps ) Picking up an Object (QC): 6 PT Plan Problem List Problem List: Activity Tolerance, Functional Strength, Safety, Balance, Gait, Transfer, Bed Mobility, ROM Treatment/Plan Treatment Plan: Continue Plan of Care Treatment Plan: Bed Mobility, Concurrent Therapy, Education, Functional Activity Luzma, Functional Strength, Group Therapy, Gait, Safety, Therapeutic Exercise, Transfers Treatment Duration: November 30, 2022 Frequency: At least 5 of 7 days/Wk (IRF) Estimated Hrs Per Day: 1.5 hours per day Patient and/or Family Agrees t: Yes Safety Risks/Education Patient Education: Gait Training, Transfer Techniques, Steps, Reviewed Precautions, Correct Positioning, W/C Management, Safety Issues Teaching Recipient: Patient Teaching Methods: Demonstration, Discussion Response to Teaching: Verbalize Understanding, Return Demonstration, Reinforcement Needed Discharge Recommendations Therapy Discharge Recommendati: Home & Family Equpiment Recommendations-D/C: Front Wheeled Walker Time Time In: 1435 Time Out: 1505 DATE: November 25, 2022 Total Billed Treatment Time: 30 Total Billed Treatment 30 min MANOHAR HUNG PT November 25, 2022 15:19
--- NOTE | 2022-11-25 15:35 | Occupational Ther Daily Note ---
OT Current Status-Daily Note Subjective OT/PT cotx (15 min) Pt alert and cooperative, agreed to therapy. ADL-Treatment Pt found with seated in wheelchair. OT propelled pt to therapy gym in wheelchair. Pt sit to stand transfer up to parallel bars from wheelchair with CGA. PT/OT worked on standing tolerance, standing balance at parallel bars. While standing pt manipulated red theraputty finding beads,addressing fine motor, dexterity, coordination. Pt left with PT in therapy gym. All needs met. Therapy Code Descriptions/Definitions Functional [place] Measure: 0=Not Assessed/NA 4=Minimal Assistance 1=Total Assistance 5=Supervision or Setup 2=Maximal Assistance 6=Modified [place] 3=Moderate Assistance 7=Complete IndependenceSCALE: Activities may be completed with or without assistive devices. 8-Rhztikkuvk-yzgxsao completes the activity by him/herself with no assistance from a helper. 5-Set-up or Clean-up Assistance-helper sets up or cleans up; patient completes activity. [place] assists only prior to or following the activity. 4-Supervision or Touching Assistance-helper provides verbal cues and/or touching/steadying and/or contact guard assistance as patient completes activity. Assistance may be provided throughout the activity or intermittently. 3-Partial/Moderate Assistance-helper does LESS THAN HALF the effort. [place] lifts, holds or supports trunk or limbs, but provides less than half the effort. 2-Substantial/Maximal Assistance-helper does MORE THAN HALF the effort. [place] lifts or holds trunk or limbs and provides more than half the effort. 1-Ojbnrqtvn-ycdicb does ALL the effort. Patient does none of the effort to complete the activity. Or, the assistance of 2 or more helpers is required for the patient to complete the activity. If activity was not attempted, code reason: 7-Patient Refused. 9-Not Applicable-not attempted and the patient did not perform the activity before the current illness, exacerbation or injury. 10-Not Attempted due to Environmental Limitations-(lack of equipment, weather restraints, etc.). 88-Not Attempted due to Medical Conditions or Safety Concerns. Education OT Patient Education: Energy conservation, Transfer techniques, W/C management Teaching Recipient: Patient Teaching Methods: Demonstration Response to Teaching: Verbalize Understanding OT Short Term Goals Short Term Goals Time Frame: December 04, 2022 Upper body dressin Lower body dressin Putting on/taking off footwear: 5 OT Senior Living Goals Singing Messenger Goals Time Frame: December 11, 2022 Acute change in mental status: 0 Inattention: 0 Disorganized thinkin Altered level of consciousness: 0 Eating (QC): 6 Oral Hygiene (QC): 6 Toileting Hygiene (QC): 6 Shower/Bathe Self (QC): 6 Upper Body Dressing (QC): 6 Lower Body Dressing (QC): 6 On/Off Footwear (QC): 6 Additional Goals: 1-Demonstrate ADL Tasks, 2-Verbalize Understanding, 3- ImproveStrength/[place]uz[place] 1=Demonstrate adherence to instructed precautions during ADL tasks. 2=Patient will verbalize/demonstrate understanding of assistive devices/modifications for ADL. 3=Patient will improve strength/tolerance for activity to enable patient to perform ADL's. OT Education/Plan Discharge Recommendations Plan/Recommendations: Continue POC Treatment Plan/Plan of Care Patient would benefit from OT for education, treatment and training to promote independence in ADL's, mobility, safety and/or upper extremity function for ADL's. Plan of Care: ADL Retraining, Functional Mobility, Group Exercise/Act as Ind, UE Funct Exercise/Act Treatment Duration: December 11, 2022 Frequency: At least 5 of 7 days/Wk (IRF) Estimated Hrs Per Day: 1.5 hours per day Agreement: Yes Rehab Potential: Good Time Start Time: 15:05 Stop Time: 15:20 DATE: November 25, 2022 Total Time Billed (hr/min): 15 Billed Treatment Time 1 visit Ex 1 (15 mins) COTX 15 min with PT Maria Esther Briggs COTA November 25, 2022 15:35
--- NOTE | 2022-11-25 16:05 | PM&R Post Admission Assessment ---
PM&R HP Date of Visit: November 25, 2022 Time of Visit: 14:00 History of Present Illness CC: Right femur fracture HPI: This is a 77yoWF clinic patient of Dr Victoria, Dr Savage, Nephrology at [place] who presents to ARU following a right femur fracture s/p uncomplicated repair. She remains very debilitated and weak and need aggressive rehab in order to return home with her spouse. She did require 1 unit of blood and remains anemic. Syncopal episode required loop recorder so Tely will be DC. Bowels have not moved so we will initiate bowel regimen. Hospital Course: Shweta Simental is a 77 year old female who was admitted after a fall with a hip fracture. Dr. Sun was consulted and performed intramedullary nail placment. Her course was complicated by anemia and required one unit PRBC transfusion. She also had possible syncope leading to her event and a loop recorder was placed by Cardiology. She was debilitated and was discharged to inpatient rehab for ongoing therapy and medical treatment. Past Hizlulb-Vxwiit-Qrinfr Hx Past Med/Social Hx: Reviewed Nursing Past Med/Soc Hx, Reviewed and Corrections made Patient Social History Marrital Status: Employed/Student: retired Alcohol Use: Occasionally Uses Alcohol Beverage of Choice: Rum Former Smoker, Quit: Jun 04, 2000 Type Used: Cigarettes 2nd Hand Smoke Exposure: No Recent Hopitalizations: No Immunizations Up To Date Tetanus Booster (TDap): Unknown Date of Pneumonia Vaccine: Jul 18, 2015 Date of Influenza Vaccine: Jul 18, 2015 Seasonal Allergies Seasonal Allergies: Yes Past Medical History Surgeries: Abdominal, Cardiac, Eye Surgery, Hysterectomy, Orthopedic, Rectal, Tubal Ligation Currently Using CPAP: No Currently Using BIPAP: No Cardiac: Atrial Fibrillation, Coronary Artery Disease, High Cholesterol, Hypertension, Irregular Heartbeat, Peripheral Vascular Neurological: Neuropathy 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: No Sexually Transmitted Disease: No HIV/AIDS: No 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 Disorders: Denies Hysterectomy Genitourinary: Bladder Infection, UTI-Chronic Gastrointestinal: Gastroesophageal Reflux, Chronic Constipation, Hemorrhoids, Irritable Bowel Musculoskeletal: Osteoporosis, Arthritis, Fibromyalgia, Chronic Back Pain Endocrine: Hypothyroidsim HEENT: Cataract Hearing Impairment: Hard of Hearing Cancer: Ovarian Did You Recieve Any Treatments: Yes What Type of Treatment Did You: Surgical Intervention Psychosocial: Anxiety History of Blood Disorders: Yes (HX ANEMIA) Adverse Reaction to Blood Beltrán: No (N/A) Family History Dementia 19 FATHER Drug abuse G8 BROTHER G8 SISTER FH: pancreatic cancer 19 MOTHER ( OF PANCREATIC CA AGE 67) Thyroid disease 19 MOTHER No Pertinent Family Hx CARDIAC CATHS--LAST ONE 04/12/19--MINIMAL SMALL VESSEL DISEASE, NO INTERVENTION LOOP RECORDER PLACED 12/10/18 FOR CHRONIC ATRIAL FIBRILLATION CAROTID STENOSIS Prior Level of Function Bed Mobility: 6 Transfers: 6 Gait: 6 Stairs: 6 Wheelchair Mobility: 9 Indoor Mobility (Ambulation): Independent Stairs: Independent Prior Devices Use: None Self Care: Independent Functional Cognition: Independent Current Level of Fuctioning Roll Left to Right: 3 (Min/Mod A for R LE ) Sit to Lyin (Min/Mod A for R LE ) Lying to Sitting/Side of Bed: 3 (Min/Mod A for R LE ) Sit to Stand: 4 (CGA for transfer from bed and w/c and Min A for toilet transfer ) Chair/Ogc-ex-Nxhoh Xfer: 4 (CGA for transfer from bed and w/c and Min A for toilet transfer) Car Transfer: 3 (Min A for R LE ) Does the Patient Walk: Yes Mode of Locomotion: Wheelchair Anticipated Mode of Locomotion: Walk Walk 10 feet: 4 (CGA with FWW ) Walk 50 ft with 2 Turns: 4 (CGA with FWW ) Walk 150 ft: 4 (CGA with FWW ) Walking 10ft on uneven surface: 4 (CGA with FWW ) Gait Assistive Device: FWW Does the Pt Use a Wheelchair: Yes Wheelchair Distance: 150ft Wheel 50 ft with 2 turns: 4 Wheel 150 ft: 4 1 Step (curb): 4 4 Steps: 4 12 Steps: 88 Picking up an Object: 4 (with deck officer ) Eatin Oral Hygiene: 6 Shower/Bathe Self: 4 (CGA sponge bath) Upper Body Dressin Lower Body Dressin (Min A with RLE due to pt threading in wrong pant leg) On/Off Footwear: 4 (CGA, increased time and encouragement required. Pt propped RLE onto bed to don R sock) Toileting Hygiene: 4 (CGA) PM&R Allergy/Meds/Data Review Allergies Coded Allergies: Penicillins (Verified Allergy, Mild, 01/04/14) Kqgskhw-FUI-VrX Reductase Inhibitor (Verified Allergy, Mild, 01/04/14) codeine (Verified Allergy, Mild, PT HAS TOLERATED MORPHINE, 11/20/22) opium tincture (Verified Allergy, Mild, PT HAS TOLERATED MORPHINE, 11/20/22) tramadol (Verified Allergy, Mild, PT HAS TOLERATED MORPHINE, 11/20/22) Home Medications Scheduled Amlodipine Besylate (Amlodipine Besylate), 5 MG PO DAILY, (Reported) Atorvastatin Calcium (Atorvastatin Calcium), 10 MG PO HS, (Reported) Ferrous Sulfate (Ferosul), 325 MG PO DAILY, (Reported) Fluticasone Propionate (Fluticasone Propionate), 1-2 SPRAYS NSEACH DAILY, (Reported) Levothyroxine Sodium (Levothyroxine Sodium), 125 MCG PO DAILY, (Reported) Metoprolol Tartrate (Metoprolol Tartrate), 50 MG PO BID, (Reported) Pantoprazole Sodium (Pantoprazole Sodium), 40 MG PO DAILY, (Reported) Rivaroxaban (Xarelto), 20 MG PO HS, (Reported) Trazodone HCl (Trazodone HCl), 300 MG PO HS, (Reported) Scheduled PRN Montelukast Sodium (Montelukast Sodium), 10 MG PO DAILY PRN for ALLERGY SYMPTOMS, (Reported) Current Medications Current Medications Reviewed Review of Systems Constitutional: see HPI, dizziness, malaise, weakness EENTM: no symptoms reported Respiratory: no symptoms reported Cardiovascular: no symptoms reported Gastrointestinal: no symptoms reported Genitourinary: no symptoms reported Musculoskeletal: back pain, joint pain, muscle pain, muscle stiffness, muscle cramps Skin: no symptoms reported Psychiatric/Neurological: Anxiety, Depressed All Other Systems Reviewed Negative Unless Noted: Yes Physical Exam Physical Exam Vital Signs Capillary Refill : Height, Weight, BMI Height: 5'7.00" Weight: 235lbs. 11.2oz. [id number]; 33.04 BMI Method:Stated General Appearance: No Apparent Distress, WD/WN, Chronically ill Eyes: Bilateral Eye Normal Inspection, Bilateral Eye PERRL HEENT: PERRL/EOMI, Normal ENT Inspection, Pharynx Normal Neck: Full Range of Motion, Normal Inspection, Non Tender, Supple, Carotid Bruit Respiratory: Chest Non Tender, Lungs Clear, Normal Breath Sounds, No Accessory Muscle Use, No Respiratory Distress Cardiovascular: No Edema, No Gallop, No JVD, No Murmur, Normal Peripheral Pulses, Irregularly Irregular Gastrointestinal: Normal Bowel Sounds, No Organomegaly, No Pulsatile Mass, Non Tender, Soft Back: Normal Inspection, No CVA Tenderness, No Vertebral Tenderness Extremity: Normal Capillary Refill, Normal Inspection, Normal Range of Motion (except right leg), Non Tender, No Calf Tenderness, No Pedal Edema Neurologic/Psychiatric: Alert, Oriented x3, No Motor/Sensory Deficits, roller picker II- XII Norm as Tested, Abnormal Gait, Depressed Affect, Motor Weakness Skin: Normal Color, Warm/Dry Lymphatic: No Adenopathy PM&R Medical Assessment & Plan REHAB/MEDICAL ASSESSMENT AND PLAN: REHAB IMPAIRMENT GROUP: Right femur fracture ETIOLOGIC DIAGNOSIS: Right femur fracture The comorbidities that impact the patients function and/or functional outcome by: syncope, AF, weakness, anemia post op REHAB PLAN: The patient is being admitted to our comprehensive inpatient rehabilitation facility and can tolerate the intensity of service consisting of at least: 180 minutes of therapy a day, 5 out of 7 days a week Rehab treatment will consist of: PT OT will focus on regaining function with use of AD in order to increase strength and stamina and ADL's in order to return home The patient/family has a good understanding of our discharge process and will benefit from an interdisciplinary inpatient rehabilitation program. The patient has potential to make improvement and is in need of at least two of the follow ing multidisciplinary therapies including but not limited to physical, occupational, speech, and prosthetics and orthotics. Additionally the patient will need services from respiratory, nutritional services, wound care, psychology, etc. (Customize this to each patient). Given the patients complex condition and risk of further medical complications, rehabilitation services cannot be safely or effectively provided at a lower level of care such as a prison facility. BARRIERS TO DISCHARGE: Severe weakness ESTIMATED LOS: 7 days DISPOSITION: Home RELEVANT CHANGES SINCE PREADMISSION SCREENING: I have compared the patients medical and functional status at the time of the preadmission screening and there are: no changes PROGNOSIS: Good REHABILITATION GOALS: 1. PT OT will focus on regaining function with use of AD in order to increase strength and stamina and ADL's in order to return home All the above goals were reviewed with the patient and he/she is in agreement. By signing this document, I acknowledge that I have personally performed a full physical examination on this patient within 24 hours of admission to this inpatient rehabilitation facility and have determined the patient to be able to tolerate the above course of treatment at an intensive level for a reasonable period of time. I will be completing a detailed individualized Plan of Care for this patient by day #4 of the patients stay based upon the Preadmission Screen, the Post-Admission Evaluation, and the therapy evaluations. Admission Dx/Comorbidities: (1) Closed intertrochanteric fracture of right hip Status: Acute ICD Codes: S72.141A - Displaced intertrochanteric fracture of right femur, initial encounter for closed fracture (2) Hypertension Status: Chronic ICD Codes: I10 - Essential (primary) hypertension (3) Hyperlipidemia Status: Chronic ICD Codes: E78.5 - Hyperlipidemia, unspecified (4) Hypothyroidism Status: Chronic ICD Codes: E03.9 - Hypothyroidism, unspecified (5) Debility Status: Acute ICD Codes: R53.81 - Other malaise (6) Anemia Status: Acute ICD Codes: D64.9 - Anemia, unspecified (7) Anticoagulated Status: Acute ICD Codes: Z79.01 - oysterman (current) use of anticoagulants (8) Fall on same level Status: Acute ICD Codes: W18.30XA - Fall on same level, unspecified, initial encounter (9) Syncope Status: Acute ICD Codes: R55 - Syncope and collapse (10) HX OVARIAN CANCER EXTENDING INTO COLON Assessment/Plan Assessment and Plan Assess & Plan/Chief Complaint Assessment: Right femur fracture s/p repair Post op acute blood loss anemia s/p 1 unit of transfusion Syncope s/p loop recorder Post op constipation Hypothyroidism AF OAC Plan: Aggressive PT OT Monitor labs Monitor FRANDY Lantigua DO November 25, 2022 16:04
[2022-11-25] MEDS ORDERED: LACTULOSE SYRUP 10GM/15ML (ENULOSE) 30ML UDC PO PRN (16:15)
[2022-11-25] MEDS ORDERED: FLEET ENEMA ADULT 1 EA BTL PR PRN ×2 (16:15)
[2022-11-25] MEDS ORDERED: MELATONIN 3 MG TABLET PO PRN (16:15)
[2022-11-25] MEDS ORDERED: PATIENT MAY USE OWN MEDS, ALL MC SCH (16:15)
[2022-11-25] MEDS ORDERED: CALCIUM CARBONATE 500 MG (TUMS) TAB.CHEW PO PRN (16:15)
[2022-11-25] MEDS ORDERED: ONDANSETRON 4 MG (ZOFRAN) ORAL DISSOLVE TAB PO PRN (16:15)
[2022-11-25] MEDS ORDERED: BISACODYL 10 MG SUPP (DULCOLAX) PR PRN (16:15)
[2022-11-25] MEDS ORDERED: LOPERAMIDE 2 MG (IMODIUM) TABLET PO PRN (16:15)
[2022-11-25] MEDS ORDERED: morphine INJ 10 MG/ML 1ML (SYR OR VIAL) IVP PRN (16:15)
[2022-11-25] MEDS ORDERED: DOCUSATE SODIUM 100 MG (COLACE) CAP PO PRN (16:15)
[2022-11-25] MEDS ORDERED: ONDANSETRON 4 MG/2 ML (SDV) Z0FRAN IVP PRN (16:15)
[2022-11-25] MEDS ORDERED: diphenhydrAMINE 25 MG TAB (BENADRYL) PO PRN ×2 (16:15)
[2022-11-25] MEDS ORDERED: ACETAMINOPHEN 325 MG TABLET PO PRN (16:15)
--- NOTE | 2022-11-25 16:19 | Physical Therapy Daily Note ---
PT Daily Note-Current Subjective pt was in hallway with PT upon arrival and willing to finish therapy with MANAGER STRATEGY & ACCOUNT this day. pt reports 5/10 pain when preforming flexion of the right hip " more of a stretch and a throbbing" nursing was notified of the pain. pt also stated the pain dissipates when not flexing Pain Section J - Health Conditions 1. Rarely or not at all 2. Occasionally 3. Frequently 4. Almost constantly 8. Unable to answer Pain Effect on Sleep: 4 Pain Interference with Therapy: 4 Pain Interference w/Day-to-Day: 4 Transfers SCALE: Activities may be completed with or without assistive devices. 5-Hdiggcyqlj-gehyvvc completes the activity by him/herself with no assistance from a helper. 5-Set-up or Clean-up Assistance-helper sets up or cleans up; patient completes activity. [place] assists only prior to or following the activity. 4-Supervision or Touching Assistance-helper provides verbal cues and/or touching/steadying and/or contact guard assistance as patient completes a ctivity. Assistance may be provided throughout the activity or intermittently. 3-Partial/Moderate Assistance-helper does LESS THAN HALF the effort. [place] lifts, holds or supports trunk or limbs, but provides less than half the effort. 2-Substantial/Maximal Assistance-helper does MORE THAN HALF the effort. [place] lifts or holds trunk or limbs and provides more than half the effort. 7-Rugxseyap-lkulnt does ALL the effort. Patient does none of the effort to complete the activity. Or, the assistance of 2 or more helpers is required for the patient to complete the activity. If activity was not attempted, code reason: 7-Patient Refused. 9-Not Applicable-not attempted and the patient did not perform the activity before the current illness, exacerbation or injury. 10-Not Attempted due to Environmental Limitations-(lack of equipment, weather restraints, etc.). 88-Not Attempted due to Medical Conditions or Safety Concerns. Weight Bearing Right Lower Extremity: Right Partial Weight Bearing (PWB R LE 50%) Left Lower Extremity: Left Full Weight Bearing Pt edu on 50% PWB to the R LE with scale. Pt is able to abide by 50% PWB Exercises Seated Therapy Exercises: LE Protocol, Ankle pumps, Sit to stand, Long arc quads, Chair press-ups, Hip flexion, Kicking activity, Glut set Treatments pt was able to preform standing activity while adhering to weight bearing on RLE of 50% for aprox 4-5 mins then requested to sit. pt was show, educated, preformed and able to recall HEP this day. a copy was given to pt, put in hanging HEP folder in room and in pt chart. pt was execute 3 sit to stand with VC of 30% for correct hand placement when rising form chair and correct movement of AD when pivoting for transfer. pt did require CGA. pt was left in room in recliner with call light and all needs met this day. PT Correction Goals [employer] [place] Support Goals PT Correction Goals Time Frame: December 07, 2022 Roll Left & Right (QC): 6 (Pt will complete bed mobility and functional transfers with Mod I. ) Sit to Lying (QC): 6 (Pt will complete bed mobility and functional transfers with Mod I. ) Lying-Sitting on Side/Bed(QC): 6 (Pt will complete bed mobility and functional transfers with Mod I. ) Sit to Stand (QC): 6 (Pt will complete bed mobility and functional transfers with Mod I. ) Chair/Rwf-dl-Atfoq Xfer(QC): 6 (Pt will complete bed mobility and functional transfers with Mod I. ) Toilet Transfer (QC): 6 (Pt will complete bed mobility and functional transfers with Mod I. ) Car Transfer (QC): 5 Does the Patient Walk: Yes Walk 10 feet (QC): 6 (Pt will ambulate 350ft with the FWW and Mod I, in order to show progression towards PLOF. ) Walk 50ft with 2 Turns (QC): 6 (Pt will ambulate 350ft with the FWW and Mod I, in order to show progression towards PLOF. ) Walk 150 ft (QC): 6 (Pt will ambulate 350ft with the FWW and Mod I, in order to show progression towards PLOF. ) Walking 10ft on Uneven Surface: 6 (Pt will ambulate 350ft with the FWW and Mod I, in order to show progression towards PLOF. ) 1 Step (curb) (QC): 6 (Pt will be Mod I with steps ) 4 Steps (QC): 6 (Pt will be Mod I with steps ) 12 Steps (QC): 6 (Pt will be Mod I with steps ) Picking up an Object (QC): 6 Does the Pt use WC or Scooter?: Yes Wheel 50 feet with 2 turns (QC: 6 (Pt will be Mod I with w/c mobility. ) Type: Manual Wheel 150 feet: 6 (Pt will be Mod I with w/c mobility. ) Type: Manual PT Plan Treatment/Plan Treatment Plan: Continue Plan of Care Treatment Plan: Bed Mobility, Concurrent Therapy, Education, Functional Activity Luzma, Functional Strength, Group Therapy, Gait, Safety, Therapeutic Exercise, Transfers Treatment Duration: November 30, 2022 Frequency: At least 5 of 7 days/Wk (IRF) Estimated Hrs Per Day: 1.5 hours per day Patient and/or Family Agrees t: Yes Time Time In: 1505 Time Out: 1605 DATE: November 25, 2022 Total Billed Treatment Time: 60 Total Billed Treatment 1 EX x 3 FA x 3 Co treat with OT for 15 min from 15:05- 15:20. for safe and effective treatment. Ot providing VC for upper ex and Pt providing VC for lower extremity safety, correct sequencing and mm moment for said task. Myriam Amaya MANAGER STRATEGY & ACCOUNT November 25, 2022 16:19
[2022-11-25] MEDS ORDERED: morphine INJ 4 MG/ML 1 ML (VIAL/SYRINGE) IV PRN (16:30)
[2022-11-25] MEDS: RIVAROXABAN 20 MG TABLET (XARELTO) PO SCH (18:41)
[2022-11-25] MEDS: HYDROcodone/APAP 5 MG/325 MG (LORTAB) TAB PO PRN (18:42)
[2022-11-25 19:41] VITALS: BP 162/72
[2022-11-25] MEDS: polyethylene glycoL POWDER 17 GM (MIRALAX) PACK PO SCH (20:46)
[2022-11-25] MEDS: DOCUSATE SODIUM 100 MG (COLACE) CAP PO SCH (20:47)
[2022-11-25] MEDS: CELECOXIB 100 MG (CeleBREX) CAP PO SCH (20:47)
[2022-11-25] MEDS: MONTELUKAST 10 MG (SINGULAIR) TAB PO SCH (20:47)
[2022-11-25] MEDS: meTOprolol TARTRATE 50 MG (LOPRESSOR) TAB PO SCH (20:47)
[2022-11-25] MEDS: traZODone 150 MG (DESYREL) TABLET PO SCH (20:48)
[2022-11-25] MEDS: SENNA W/DOCUSATE (SENOKOT S) TABLET PO SCH (21:05)
[2022-11-26] MEDS: HYDROcodone/APAP 5 MG/325 MG (LORTAB) TAB PO PRN ×3 (03:36→17:11)
--- NOTE | 2022-11-26 05:28 | PM&R Progress Note ---
Subjective HPI/CC On Admission Date Seen by Provider: November 26, 2022 Time Seen by Provider: 12:00 Subjective/Events-last exam 11/26/2022: Doing very well Pain controlled No pain as long as she doesn't move No falls Review of Systems General: Fatigue, Malaise Musculoskeletal: leg pain Objective Exam Vital Signs Vital Signs Date Time Temp Pulse Resp B/P (MAP) Pulse Ox O2 Delivery O2 Flow Rate FiO2 11/26/22 20:08 Room Air 11/26/22 19:26 36.3 74 18 150/83 (105) 97 Capillary Refill : General Appearance: No Apparent Distress, WD/WN, Chronically ill HEENT: PERRL/EOMI, Normal ENT Inspection, Pharynx Normal Neck: Full Range of Motion, Normal Inspection, Non Tender, Supple, Carotid Bruit Respiratory: Chest Non Tender, Lungs Clear, Normal Breath Sounds, No Accessory Muscle Use, No Respiratory Distress Cardiovascular: No Edema, No Gallop, No JVD, No Murmur, Normal Peripheral Pulses, Irregularly Irregular Gastrointestinal: Normal Bowel Sounds, No Organomegaly, No Pulsatile Mass, Non Tender, Soft Back: Normal Inspection, No CVA Tenderness, No Vertebral Tenderness Extremity: Normal Capillary Refill, Normal Inspection, Normal Range of Motion (except right leg), Non Tender, No Calf Tenderness, No Pedal Edema Neurologic/Psychiatric: Alert, Oriented x3, No Motor/Sensory Deficits, drop board worker II- XII Norm as Tested, Abnormal Gait, Depressed Affect, Motor Weakness Skin: Normal Color, Warm/Dry Lymphatic: No Adenopathy Results/Procedures Lab Laboratory Tests 11/26/22 05:27 Patient resulted labs reviewed. FIM Transfers Therapy Code Descriptions/Definitions Functional [place] Measure: 0=Not Assessed/NA 4=Minimal Assistance 1=Total Assistance 5=Supervision or Setup 2=Maximal Assistance 6=Modified [place] 3=Moderate Assistance 7=Complete IndependenceSCALE: Activities may be completed with or without assistive devices. 0-Ssnwsrjppd-rtfumwm completes the activity by him/herself with no assistance from a helper. 5-Set-up or Clean-up Assistance-helper sets up or cleans up; patient completes activity. [place] assists only prior to or following the activity. 4-Supervision or Touching Assistance-helper provides verbal cues and/or touching/steadying and/or contact guard assistance as patient completes activity. Assistance may be provided throughout the activity or intermittently. 3-Partial/Moderate Assistance-helper does LESS THAN HALF the effort. [place] lifts, holds or supports trunk or limbs, but provides less than half the effort. 2-Substantial/Maximal Assistance-helper does MORE THAN HALF the effort. [place] lifts or holds trunk or limbs and provides more than half the effort. 9-Eontztsdp-fdyrsp does ALL the effort. Patient does none of the effort to complete the activity. Or, the assistance of 2 or more helpers is required for the patient to complete the activity. If activity was not attempted, code reason: 7-Patient Refused. 9-Not Applicable-not attempted and the patient did not perform the activity before the current illness, exacerbation or injury. 10-Not Attempted due to Environmental Limitations-(lack of equipment, weather restraints, etc.). 88-Not Attempted due to Medical Conditions or Safety Concerns. Roll Left to Right (QC): 3 (Min/Mod A for R LE ) Sit to Lying (QC): 3 (Min/Mod A for R LE ) Sit to Stand (QC): 4 (CGA for transfer from bed and w/c and Min A for toilet transfer ) Chair/Kcy-je-Iauzq Xfer(QC): 4 (CGA for transfer from bed and w/c and Min A for toilet transfer) Car Transfer (QC): 3 (Min A for R LE ) Gait Training Does the Patient Walk?: Yes Walk 10 feet (QC): 4 (CGA with FWW ) Walk 50 ft with 2 Turns(QC): 4 (CGA with FWW ) Walk 150 ft (QC): 4 (CGA with FWW ) Walking 10ft/uneven surface-QC: 4 (CGA with FWW ) Gait Assistive Device: FWW Wheelchair Training Does the Pt Use a Wheelchair?: Yes Distance: 150ft Wheel 50 ft with 2 turns (QC): 4 Wheel 150 ft (QC): 4 Stair Training 1 Step (curb) (QC): 4 4 Steps (QC): 4 12 Steps (QC): 88 Balance Picking up an Object (QC): 4 (with splicer machine operator ) ADL-Treatment Eating (QC): 6 Oral Hygiene (QC): 6 Shower/Bathe Self (QC): 4 (CGA sponge bath) Upper Body Dressing (QC): 5 Lower Body Dressing (QC): 3 (Min A with RLE due to pt threading in wrong pant leg) On/Off Footwear (QC): 4 (CGA, increased time and encouragement required. Pt propped RLE onto bed to don R sock) Toileting Hygiene (QC): 4 (CGA) Assessment/Plan Assessment and Plan Assess & Plan/Chief Complaint Assessment: Right femur fracture s/p repair Post op acute blood loss anemia s/p 1 unit of transfusion Syncope s/p loop recorder Post op constipation-resolved Hypothyroidism AF OAC Dementia? Iron def Vit B12 def Plan: Aggressive PT OT Monitor labs Monitor creat 11/26/2022: Continue pain management Supplement B12 and Iron (1) Closed intertrochanteric fracture of right hip Status: Acute (2) Hypertension Status: Chronic (3) Hyperlipidemia Status: Chronic (4) Hypothyroidism Status: Chronic (5) Debility Status: Acute (6) Anemia Status: Acute (7) Anticoagulated Status: Acute (8) Fall on same level Status: Acute (9) Syncope Status: Acute (10) HX OVARIAN CANCER EXTENDING INTO COLON FRANDY TINOCO DO November 26, 2022 05:28
--- NOTE | 2022-11-26 05:29 | Individualized Plan of Care ---
Individualized Plan of Care Rehab Nursing IPOC Order Admission Date November 25, 2022 at 13:30 Current Orders Orders Admission Arrival Bed Request (11/25/22 13:40) General/Regular (11/25/22 Lunch) Code/Resuscitation (11/25/22 13:40) Admission Order(Inpt,Obs,Sdc) (11/25/22 16:03) Vital Signs: Per Unit Policy ( ,16,00 (11/25/22 16:03) Axel Hose (11/25/22 16:03) Sequential Compression Device (11/25/22 16:03) Operations Leader-Inpt Rehab Con (11/25/22 16:03) Rehab Nursing Orders-Ipoc (11/25/22 16:03) Physical Therapy Rehab Orders (11/25/22 16:03) Occupational Therapy Rehab Ord (11/25/22 16:03) Speech Therapy Rehab Orders (11/25/22 16:03) Cbc With Automated Diff (11/26/22 06:00) Comprehensive Metabolic Panel (11/26/22 06:00) Precautions (Aru) (11/25/22 16:03) Weekly Weight WEEK (11/25/22 16:03) Rehab-Intensity Of Therapy (11/25/22 16:03) Initiate Admission Nursing Pro .admission (11/25/22 16:03) Alprazolam Tablet (Xanax Tablet) (11/25/22 16:15) Calcium Carbonate Chew Tablet (Antacid C (11/25/22 16:15) Diphenhydramine Tablet (Benadryl Tablet) (11/25/22 16:15) Docusate Sodium Capsule (Colace Capsule) (11/25/22 21:00) Docusate Sodium Capsule (Colace Capsule) (11/25/22 16:15) Bisacodyl Suppository (Dulcolax Supposit (11/25/22 16:15) Lactulose Oral Solution (Enulose Oral So (11/25/22 16:15) Na Phos/Na Biphos Enema (Fleet Enema Nixon (11/25/22 16:15) Loperamide Tablet (Imodium Tablet) (11/25/22 16:15) Melatonin Tablet (Melatonin Tablet) (11/25/22 16:15) Polyethylene Glycol Powder Pkt (Miralax (11/25/22 21:00) Ondansetron Oral Dissolve Tab (Zofran (11/25/22 16:15) Senna S Tablet (Senokot S Tablet) (11/25/22 21:00) Acetaminophen Tablet/Caplet (Tylenol T (11/25/22 16:15) Initiate Admission Nursing Pro .admission (11/25/22 16:03) Dressing Order (Intervention) DAILY (11/25/22 16:05) Incentive Spirometry (Nursing) Q2H (11/25/22 16:05) General/Regular (11/25/22 Dinner) Celecoxib Capsule (Celebrex Capsule) (11/25/22 21:00) Fluticasone Nasal [place] (Flonase Nasal S (11/26/22 09:00) Hydrocodone/Apap 5/325 Tablet (Lortab 5 (11/25/22 16:15) Levothyroxine Tablet (Synthroid Tablet) (11/26/22 06:30) Montelukast Tablet (Singulair Tablet) (11/25/22 21:00) Na Phos/Na Biphos Enema (Fleet Enema Nixon (11/25/22 16:15) Pantoprazole Tablet (Protonix Tablet) (11/26/22 09:00) Patient May Use Own Meds, All (Patient M (11/25/22 16:15) Rivaroxaban Tablet (Xarelto Tablet) (11/25/22 17:00) Ondansetron Injection (Zofran Injectio (11/25/22 16:15) Amlodipine Tablet (Norvasc Tablet) (11/26/22 09:00) Diphenhydramine Tablet (Benadryl Tablet) (11/25/22 16:15) Metoprolol Tartrate (Ir) Tab (Lopressor (11/25/22 21:00) Morphine Injection (Morphine Injection (11/25/22 16:15) Trazodone Tablet (Desyrel Tablet) (11/25/22 21:00) Consult Cardiology (11/25/22 16:05) Morphine Injection (Morphine Injection (11/25/22 16:30) Iron Sucrose Injection (Venofer Injectio (11/26/22 09:00) Patient Visit (11/25/22 ) Pt Eval Low Complexity (11/25/22 ) Exercise Therap, Ea 15 Min (11/25/22 ) Functional Activities, Ea 15 (11/25/22 ) Iron Test (Fe) (11/26/22 12:01) Vitamin B 12 (11/26/22 12:01) Patient Visit (11/26/22 ) Gait Training, Ea 15 Min (11/26/22 ) Exercise Therap, Ea 15 Min (11/26/22 ) Functional Activities, Ea 15 (11/26/22 ) Cyanocobalamin Injection (Vitamin B-12 I (11/27/22 08:00) Cyanocobalamin Tablet (Vitamin B-12 Tabl (11/28/22 07:00) Iron Sucrose Injection (Venofer Injectio (11/27/22 09:00) Pharmacy Consult/Message (11/27/22 05:02) Rehab Nursing Orders: Ongoing Assess. of Cognitive Status, Ongoing Assess. of Function Status, Bladder Management, Bladder Scan, Bladder Training, Bowel Management, Bowel Training, Disease Management & Educaiton, DVT Prophylaxis, Fall Prevention, Fluid/Electrolyte/Nutrition Mgmt, Infection Prevention, Medication Management & Education, Management of Risks & Complications, Managem ent of Skin Intergrity, Nutrition Management, Pain Management, Patient/Family Support, Safety Management, Wound Management Intensity of Therapy to be met Patient to be seen: Min.3h per day/5 of 7d PT IPOC Problem List: Activity Tolerance, Functional Strength, Safety, Balance, Gait, Transfer, Bed Mobility, ROM Treatment Plan: Continue Plan of Care Bed Mobility, Concurrent Therapy, Education, Functional Activity Luzma, F unctional Strength, Group Therapy, Gait, Safety, Therapeutic Exercise, Transfers Treatment Duration: November 30, 2022 Frequency: At least 5 of 7 days/Wk (IRF) Estimated Hrs Per Day: 1.5 hours per day OT IPOC Problems: Decreased Activ Tolerance, Decreased UE Strength, Impaired Funct Balance, Impaired I ADL's, Impaired Self-Care Skills OT Treatment, Training and Edu: Yes Plan of Care: ADL Retraining, Functional Mobility, Group Exercise/Act as Ind, UE Funct Exercise/Act Treatment Duration: December 11, 2022 Frequency: At least 5 of 7 days/Wk (IRF) Estimated Hrs Per Day: 1.[address] IPOC Speech Therapy Treatment Plan: Discontinue ST Treatment Duration: November 26, 2022 Frequency: Modified Program (IRF) Estimated Hrs Per Day: Other Operations Leader/Case Mgmt Operations Leader/Case Managemen: Discharge Planning Dietitian/Header Set Up Operator Dietitian/Header Set Up Operator to monitor nutritional status and make changes and/or re commendations as needed and work with speech pathology on dietary upgrades as the occur. Physician IPOC Medical Issues being managed closely and that require the 24 hour availability of a physician: Recent hip fracture with prior cognitive deficits along with post op anemia requiring blood transfusion and loop recorder for syncope will need close physician supervision Medical Issues: Bowel/Bladder Function, DVT Prophylaxis, Falls Precautions, Fluid/Electrolyte/Nutrition Balance, Infection Protection, Pain Management, Wound Care Brief Synthesis of Preadmission Screen, Post-Admission Evaluation, and Therapy Evaluations: PT OT will focus on regaining function with use of AD in order to increase stamina and increase independence in ADL's in order to return home Medical Prognosis: Good Anticipated Length of Stay: 7 days FRANDY TINOCO DO November 26, 2022 05:29
[2022-11-26 05:30] LABS: BASOPHILS % (AUTO) 0 % (0-10); EOSINOPHILS # (AUTO) 0.2 10^3/uL (0.0-0.3); EOSINOPHILS % (AUTO) 5 % (0-10); HEMATOCRIT 27 % (35-52); HEMOGLOBIN 8.7 g/dL (11.5-16.0); LYMPHOCYTES # (AUTO) 0.5 10^3/uL (1.0-4.0); LYMPHOCYTES % (AUTO) 13 % (12-44); MEAN CORPUSCULAR HEMOGLOBIN 27 pg (25-34); MEAN CORPUSCULAR HGB CONC 33 g/dL (32-36); MEAN CORPUSCULAR VOLUME 83 fL (80-99); MEAN PLATELET VOLUME 8.6 fL (9.0-12.2); MONOCYTES # (AUTO) 0.4 10^3/uL (0.0-1.0); MONOCYTES % (AUTO) 12 % (0-12); NEUTROPHILS # (AUTO) 2.5 10^3/uL (1.8-7.8); NEUTROPHILS % (AUTO) 70 % (42-75); PLATELET COUNT 189 10^3/uL (130-400); WHITE BLOOD COUNT 3.6 10^3/uL (4.3-11.0)
[2022-11-26 05:37] LABS: ALBUMIN 3.2 GM/DL (3.2-4.5)
[2022-11-26 05:38] LABS: POTASSIUM 3.9 MMOL/L (3.6-5.0)
[2022-11-26 05:39] LABS: CALCIUM 8.5 MG/DL (8.5-10.1)
[2022-11-26 05:40] LABS: TOTAL PROTEIN 5.6 GM/DL (6.4-8.2)
[2022-11-26 05:42] LABS: BILIRUBIN,TOTAL 1.6 MG/DL (0.1-1.0)
[2022-11-26 05:44] LABS: CREATININE SERUM 1.11 MG/DL (0.60-1.30)
[2022-11-26] MEDS: LEVOTHYROXINE 125 MCG (LEVOTHROID) TABLET PO SCH (06:05)
--- NOTE | 2022-11-26 08:01 | Cardiology Progress Note ---
Subjective Date Seen by Provider: November 26, 2022 Time Seen by Provider: 07:58 Subjective/Events-last exam Patient was seen at bedside, sitting comfortably Still having orthostatic dizziness. No syncope Review of Systems General: No Chills, No Night Sweats; Fatigue; No Malaise, No Appetite, No Other HEENT: No Head Aches, No Visual Changes, No Eye Pain, No Ear Pain, No Dysphasia, No Sinus Congestion, No Post Nasal Drip, No Sore Throat, No Other Pulmonary: No Dyspnea, No Cough, No Pleuritic Chest Pain, No Other Cardiovascular: No: Chest Pain, Palpitations, Orthopnea, Paroxysmal Noc. Dyspnea, Edema, Lt Headedness, Other Objective-Cardiology Exam Last Set of Vital Signs Vital Signs 11/25/22 11/25/22 19:41 21:08 Temp 36.3 Pulse 78 Resp 18 B/P (MAP) 162/72 (102) Pulse Ox 99 O2 Delivery Room Air I&O Intake and Output 11/26/22 00:00 Intake Total 400 ml Balance 400 ml Intake Oral 400 ml # Voids 3 Daily Weight Change No General: Alert, Oriented X3, Cooperative HEENT: Atraumatic, PERRLA Neck: Supple, No JVD, No Thyromegaly Lungs: Clear to Auscultation, Normal Air Movement Heart: Regular Rate, Normal S1, Normal S2, No Murmurs Abdomen: Normal Bowel Sounds, Soft, No Tenderness, No Hepatosplenomegaly, No Masses Extremities: No Clubbing, No Cyanosis, No Edema, Normal Pulses, No Tenderness/Swelling Skin: No Rashes, No Breakdown, No Significant Lesion Neuro: Normal Gait, Normal Speech, Strength at 5/5 X4 Ext, Normal Tone, Sensation Intact Psych/Mental Status: Mental Status NL, Mood NL Results Lab Laboratory Tests 11/26/22 05:27 A/P-Cardiology Assessment/Plan Syncope, unknown etiology, most probably labile hypertension. Resulted in hip fracture Patient is being monitored on telemetry New loop monitor was implanted on November 23, 2022. Moderate hypertension at this time, will avoid aggressive blood pressure control Continue to monitor Hypertension, poor control, will accept elevated blood pressure to minimize the chances of syncope Right-sided hip fracture, hip surgery on November 18, 2022. Receiving physical therapy. Chest pain, nonspecific etiology, has been having chronic chest pain on and off. Feeling better. No further episodes of chest pain were reported. Continue to monitor Permanent atrial fibrillation with variable response, had an episode of aberrant conduction, seen by Dr. Emerson, had a loop recorder implanted in November 2018, having multiple episodes of atrial fibrillation and pauses. Continue to monitor [id number] score is 3, yearly risk of stroke without oral anticoagulation is 3.2 percent. Patient is maintained on Xarelto. Had previous trauma to the face secondary to falling, Restart Xarelto when deemed reasonable by the surgeon Episodes of dizziness with exertion, reporting worsening symptoms recently, has history of atrial fibrillation and questionable sinus node dysfunction Continue to monitor Coronary artery disease, cardiac catheterization was done in August 2015 showing mild ectasia in the proximal LAD with slow flow in the proximal LAD at otherwise small vessel disease no significant obstructive disease. Had another cardiac catheterization done in March 2019 after having an abnormal stress test showing coronary ectasia, no change compared to 2015. Currently EKG did not show any acute abnormality on November 17, 2022. Continue to monitor 2D Echo done on November 18, 2022 with ejection fraction 60 to 65%, PA pressure 40 to 45 mmHg, mild mitral regurgitation moderate tricuspid regurgitation. Mild bilateral nonobstructive carotid artery stenosis, continue to monitor COPD, obstructive sleep apnea, seen by Dr. Boston in the past. Managed by primary care physician Hyperlipidemia, continue to monitor Ovarian cancer, had abdominal extensive surgery, recurrent malignancy, Moderately differentiated carcinoma although very status post total abdominal hysterectomy/BSO and partial colectomy in August 2020, CEA 125 is elevated, CEA normal, receiving carbo plus Taxol. Reporting repeat scans showing improvement. Hypothyroidism managed by primary care physician Prediabetes, patient was educated on diet and weight loss. Obesity, BMI 33, we discussed weight loss and diet ANSON POMPA MD November 26, 2022 08:00
[2022-11-26] MEDS: IRON SUCROSE 200 MG/10 ML (VENOFER) VIAL IV SCH (08:11)
[2022-11-26] MEDS: polyethylene glycoL POWDER 17 GM (MIRALAX) PACK PO SCH ×2 (08:11→19:00)
[2022-11-26] MEDS: PANTOPRAZOLE 40 MG (PROTONIX) TAB PO SCH (08:12)
[2022-11-26] MEDS: amLODIPine 5 MG (NORVASC) TAB PO SCH (08:12)
[2022-11-26] MEDS: CELECOXIB 100 MG (CeleBREX) CAP PO SCH ×2 (08:12→19:14)
[2022-11-26] MEDS: DOCUSATE SODIUM 100 MG (COLACE) CAP PO SCH ×2 (08:12→19:00)
[2022-11-26] MEDS: SENNA W/DOCUSATE (SENOKOT S) TABLET PO SCH ×2 (08:12→19:01)
[2022-11-26] MEDS: meTOprolol TARTRATE 50 MG (LOPRESSOR) TAB PO SCH ×2 (08:12→19:14)
[2022-11-26] MEDS: FLUTICASONE NASAL SPRAY (FLONASE) 16 GM BTL NS SCH (08:18)
[2022-11-26 08:24] VITALS: BP 141/72
--- NOTE | 2022-11-26 11:59 | Occupational Ther Daily Note ---
OT Current Status-Daily Note Subjective Pt alert, sitting in recliner. Pt agrees to therapy. No c/o pain at this time. Mental Status/Objective Patient Orientation: Person, Place, Time Attachments: IV, Other-See Comments (loop recorder) ADL-Treatment Pt agrees to shower. IV and loop recorder covered for shower. SBA for toilet transfer and toileting. Pt required verbal cues to sit in shower for safety. Pt sat 90% of the time on shower bench to wash all areas except buttocks/heriberto area with CGA while standing. Pt is demonstrating need for verbal cues and instruction for safety awareness, managing water temp and placement of hand held shower while taking shower. Pt educated on AE for lower body dressing, min A to use stapler coil unit then SBA in standing to hike pants of hips. Set up for UBD. Education on using sock aide to don socks, doffed socks by self. Mod A for footwear. Independent for oral care sitting at sink. Therapy Code Descriptions/Definitions Functional [place] Measure: 0=Not Assessed/NA 4=Minimal Assistance 1=Total Assistance 5=Supervision or Setup 2=Maximal Assistance 6=Modified [place] 3=Moderate Assistance 7=Complete IndependenceSCALE: Activities may be completed with or without assistive devices. 8-Wfevovrgev-lvnikpo completes the activity by him/herself with no assistance from a helper. 5-Set-up or Clean-up Assistance-helper sets up or cleans up; patient completes activity. [place] assists only prior to or following the activity. 4-Supervision or Touching Assistance-helper provides verbal cues and/or touching/steadying and/or contact guard assistance as patient completes activity. Assistance may be provided throughout the activity or intermittently. 3-Partial/Moderate Assistance-helper does LESS THAN HALF the effort. [place] lifts, holds or supports trunk or limbs, but provides less than half the effort. 2-Substantial/Maximal Assistance-helper does MORE THAN HALF the effort. [place] lifts or holds trunk or limbs and provides more than half the effort. 8-Gclzablcp-rwalzc does ALL the effort. Patient does none of the effort to complete the activity. Or, the assistance of 2 or more helpers is required for the patient to complete the activity. If activity was not attempted, code reason: 7-Patient Refused. 9-Not Applicable-not attempted and the patient did not perform the activity before the current illness, exacerbation or injury. 10-Not Attempted due to Environmental Limitations-(lack of equipment, weather restraints, etc.). 88-Not Attempted due to Medical Conditions or Safety Concerns. Oral Hygiene (QC): 6 Shower/Bathe Self (QC): 4 Upper Body Dressing (QC): 5 Lower Body Dressing (QC): 3 On/Off Footwear: 3 Toileting Hygiene (QC): 4 Toilet Transfer (QC): 4 Other Treatment Pt completed arm bike for 10 min at 20 benson resistance to increase strength and stamina for daily functional tasks. After session, pt sitting in w/c in room with present. Call light/phone in reach. All needs met. OT Short Term Goals Short Term Goals Time Frame: December 04, 2022 Upper body dressin Lower body dressin Putting on/taking off footwear: 5 OT Intake Counselor Goals Intake Counselor Goals Time Frame: December 11, 2022 Acute change in mental status: 0 Inattention: 0 Disorganized thinkin Altered level of consciousness: 0 Eating (QC): 6 Oral Hygiene (QC): 6 Toileting Hygiene (QC): 6 Shower/Bathe Self (QC): 6 Upper Body Dressing (QC): 6 Lower Body Dressing (QC): 6 On/Off Footwear (QC): 6 Additional Goals: 1-Demonstrate ADL Tasks, 2-Verbalize Understanding, 3-ImproveStrength/Luzma 1=Demonstrate adherence to instructed precautions during ADL tasks. 2=Patient will verbalize/demonstrate understanding of assistive devices/modifications for ADL. 3=Patient will improve strength/tolerance for activity to enable patient to perform ADL's. OT Education/Plan Problem List/Assessment Assessment: Decreased Activ Tolerance, Decreased Safety Aware, Decreased UE Strength, Impaired Cognition, Impaired Self-Care Skills Discharge Recommendations Plan/Recommendations: Continue POC Treatment Plan/Plan of Care Patient would benefit from OT for education, treatment and training to promote independence in ADL's, mobility, safety and/or upper extremity function for ADL's. Plan of Care: ADL Retraining, Functional Mobility, Group Exercise/Act as Ind, UE Funct Exercise/Act Treatment Duration: December 11, 2022 Frequency: At least 5 of 7 days/Wk (IRF) Estimated Hrs Per Day: 1.5 hours per day Agreement: Yes Rehab Potential: Good Time Start Time: 09:30 Stop Time: 11:00 DATE: November 26, 2022 Total Time Billed (hr/min): 90 Billed Treatment Time 1 visit-ADL 5 (75 min) EX 1 (15 min) SHAMAR QUINN November 26, 2022 11:59
--- NOTE | 2022-11-26 12:45 | Speech Therapy Progress Note ---
Therapy Progress Note Speech pathology received a "cognitive training" consultation for the patient as a part of the group acute rehabilitation order set. At this time, skilled speech pathology services have not been requested or warranted. Please re-consult speech pathology with any changes or concerns. Thank you. MOHIT MAHARAJ November 26, 2022 12:44
--- NOTE | 2022-11-26 12:53 | Physical Therapy Daily Note ---
PT Daily Note-Current Subjective Pt reports she is doing well today and is agreeable to treatment. Pt reported R LE pain at 3/10. Pain Numeric Pain Scale: 3 Location: Right Location Body Site: Thigh Section J - Health Conditions 1. Rarely or not at all 2. Occasionally 3. Frequently 4. Almost constantly 8. Unable to answer Pain Effect on Sleep: 4 Pain Interference with Therapy: 4 Pain Interference w/Day-to-Day: 4 Transfers SCALE: Activities may be completed with or without assistive devices. 1-Jpeijiiauq-roiyfhp completes the activity by him/herself with no assistance from a helper. 5-Set-up or Clean-up Assistance-helper sets up or cleans up; patient completes activity. [place] assists only prior to or following the activity. 4-Supervision or Touching Assistance-helper provides verbal cues and/or touching/steadying and/or contact guard assistance as patient completes activity. Assistance may be provided throughout the activity or intermittently. 3-Partial/Moderate Assistance-helper does LESS THAN HALF the effort. [place] li fts, holds or supports trunk or limbs, but provides less than half the effort. 2-Substantial/Maximal Assistance-helper does MORE THAN HALF the effort. [place] lifts or holds trunk or limbs and provides more than half the effort. 4-Tblyyhdtl-yqjyvt does ALL the effort. Patient does none of the effort to complete the activity. Or, the assistance of 2 or more helpers is required for the patient to complete the activity. If activity was not attempted, code reason: 7-Patient Refused. 9-Not Applicable-not attempted and the patient did not perform the activity before the current illness, exacerbation or injury. 10-Not Attempted due to Environmental Limitations-(lack of equipment, weather restraints, etc.). 88-Not Attempted due to Medical Conditions or Safety Concerns. Sit to Stand (QC): 4 Weight Bearing Right Lower Extremity: Right Partial Weight Bearing (PWB R LE 50%) Left Lower Extremity: Left Full Weight Bearing Pt edu on 50% PWB to the R LE with scale. Pt is able to abide by 50% PWB Gait Training Does the Patient Walk?: Yes Walk 10 feet (QC): 4 Walk 50 ft with 2 Turns(QC): 4 Gait Assistive Device: FWW Pt able to abide by 50% PWB to the R LE Wheelchair Training Does the Pt Use a Wheelchair?: Yes Wheel 50 ft with 2 turns (QC): 4 Wheel 150 ft (QC): 4 Type of Wheelchair: Manual Treatments Pt completed functional transfers with CGA. Pt ambulated 80ft, 40ft, 60ft, and 130ft with the FWW and CGA and w/c follow. Pt completed seated B LE Ther Ex x 20 reps each with the red Tband. Pt completed 12 min on the nu-step at level 1. Assessment Current Status: Good Progress Pt tolerated well PT Injection Molding Operator Goals Injection Molding Operator Goals PT Half-Way Goals Time Frame: December 07, 2022 Roll Left & Right (QC): 6 (Pt will complete bed mobility and functional transfers with Mod I. ) Sit to Lying (QC): 6 (Pt will complete bed mobility and functional transfers with Mod I. ) Lying-Sitting on Side/Bed(QC): 6 (Pt will complete bed mobility and functional transfers with Mod I. ) Sit to Stand (QC): 6 (Pt will complete bed mobility and functional transfers with Mod I. ) Chair/Lbx-rz-Hgqyx Xfer(QC): 6 (Pt will complete bed mobility and functional transfers with Mod I. ) Toilet Transfer (QC): 6 (Pt will complete bed mobility and functional transfers with Mod I. ) Car Transfer (QC): 5 Does the Patient Walk: Yes Walk 10 feet (QC): 6 (Pt will ambulate 350ft with the FWW and Mod I, in order to show progression towards PLOF. ) Walk 50ft with 2 Turns (QC): 6 (Pt will ambulate 350ft with the FWW and Mod I, in order to show progression towards PLOF. ) Walk 150 ft (QC): 6 (Pt will ambulate 350ft with the FWW and Mod I, in order to show progression towards PLOF. ) Walking 10ft on Uneven Surface: 6 (Pt will ambulate 350ft with the FWW and Mod I, in order to show progression towards PLOF. ) 1 Step (curb) (QC): 6 (Pt will be Mod I with steps ) 4 Steps (QC): 6 (Pt will be Mod I with steps ) 12 Steps (QC): 6 (Pt will be Mod I with steps ) Picking up an Object (QC): 6 Does the Pt use WC or Scooter?: Yes Wheel 50 feet with 2 turns (QC: 6 (Pt will be Mod I with w/c mobility. ) Type: Manual Wheel 150 feet: 6 (Pt will be Mod I with w/c mobility. ) Type: Manual PT Plan Problem List Problem List: Activity Tolerance, Functional Strength, Safety, Balance, Gait, Transfer, Bed Mobility, ROM Treatment/Plan Treatment Plan: Continue Plan of Care Treatment Plan: Bed Mobility, Concurrent Therapy, Education, Functional A ctivity Lu[place], Functional Strength, Group Therapy, Gait, Safety, Therapeutic Exercise, Transfers Treatment Duration: November 30, 2022 Frequency: At least 5 of 7 days/Wk (IRF) Estimated Hrs Per Day: 1.5 hours per day Patient and/or Family Agrees t: Yes Safety Risks/Education Patient Education: Gait Training, Transfer Techniques, Reviewed Precautions Teaching Recipient: Patient Teaching Methods: Demonstration, Discussion Response to Teaching: Return Demonstration, Reinforcement Needed Discharge Recommendations Therapy Discharge Recommendati: Home & Family Equpiment Recommendations-D/C: Front Wheeled Walker Time Time In: 1102 Time Out: 1202 DATE: November 26, 2022 Total Billed Treatment Time: 60 Total Billed Treatment 60 min 1 visit GT x 2 EX x 1 FA x 1 MANOHAR PHILLIP PT November 26, 2022 12:53
--- NOTE | 2022-11-26 14:49 | Physical Therapy Daily Note ---
PT Daily Note-Current Subjective Pt is doing well Pain Location: Right Location Body Site: Hip Section J - Health Conditions 1. Rarely or not at all 2. Occasionally 3. Frequently 4. Almost constantly 8. Unable to answer Pain Effect on Sleep: 4 Pain Interference with Therapy: 4 Pain Interference w/Day-to-Day: 4 Transfers SCALE: Activities may be completed with or without assistive devices. 9-Paikqtbzyi-cbdkslr completes the activity by him/herself with no assistance from a helper. 5-Set-up or Clean-up Assistance-helper sets up or cleans up; patient completes activity. [place] assists only prior to or following the activity. 4-Supervision or Touching Assistance-helper provides verbal cues and/or touching/steadying and/or contact guard assistance as patient completes activity. Assistance may be provided throughout the activity or intermittently. 3-Partial/Moderate Assistance-helper does LESS THAN HALF the effort. [place] lif ts, holds or supports trunk or limbs, but provides less than half the effort. 2-Substantial/Maximal Assistance-helper does MORE THAN HALF the effort. [place] lifts or holds trunk or limbs and provides more than half the effort. 0-Zbfwqdwyg-caatda does ALL the effort. Patient does none of the effort to complete the activity. Or, the assistance of 2 or more helpers is required for the patient to complete the activity. If activity was not attempted, code reason: 7-Patient Refused. 9-Not Applicable-not attempted and the patient did not perform the activity before the current illness, exacerbation or injury. 10-Not Attempted due to Environmental Limitations-(lack of equipment, weather restraints, etc.). 88-Not Attempted due to Medical Conditions or Safety Concerns. Sit to Stand (QC): 4 Weight Bearing Right Lower Extremity: Right Partial Weight Bearing (PWB R LE 50%) Left Lower Extremity: Left Full Weight Bearing Pt edu on 50% PWB to the R LE with scale. Pt is able to abide by 50% PWB Gait Training Does the Patient Walk?: Yes Walk 10 feet (QC): 4 Walk 50 ft with 2 Turns(QC): 4 Walk 150 ft (QC): 88 Walking 10ft/uneven surface-QC: 88 Gait Persons Needed: 1 Gait Assistive Device: FWW Wheelchair Training Does the Pt Use a Wheelchair?: Yes Wheel 50 ft with 2 turns (QC): 4 Wheel 150 ft (QC): 4 Type of Wheelchair: Manual Treatments Pt completed functional transfers with SBA and Min v/c for safety and technique. Pt ambulated 110ft with the FWW and CGA and w/c follow. Pt completed seated B LE Ther Ex x 20 reps each with the red Tband. Pt stood for 8 min at the FWW with CGA, working on a puzzle to improve standing tolerance for ADL completion. Assessment Current Status: Good Progress Pt tolerated PT well PT Steam Distribution Supervisor Goals Steam Distribution Supervisor Goals PT Steam Distribution Supervisor Goals Time Frame: December 07, 2022 Roll Left & Right (QC): 6 (Pt will complete bed mobility and functional transfers with Mod I. ) Sit to Lying (QC): 6 (Pt will complete bed mobility and functional transfers with Mod I. ) Lying-Sitting on Side/Bed(QC): 6 (Pt will complete bed mobility and functional transfers with Mod I. ) Sit to Stand (QC): 6 (Pt will complete bed mobility and functional transfers with Mod I. ) Chair/Qxn-sj-Yeqla Xfer(QC): 6 (Pt will complete bed mobility and functional transfers with Mod I. ) Toilet Transfer (QC): 6 (Pt will complete bed mobility and functional transfers with Mod I. ) Car Transfer (QC): 5 Does the Patient Walk: Yes Walk 10 feet (QC): 6 (Pt will ambulate 350ft with the FWW and Mod I, in order to show progression towards PLOF. ) Walk 50ft with 2 Turns (QC): 6 (Pt will ambulate 350ft with the FWW and Mod I, in order to show progression towards PLOF. ) Walk 150 ft (QC): 6 (Pt will ambulate 350ft with the FWW and Mod I, in order to show progression towards PLOF. ) Walking 10ft on Uneven Surface: 6 (Pt will ambulate 350ft with the FWW and Mod I, in order to show progression towards PLOF. ) 1 Step (curb) (QC): 6 (Pt will be Mod I with steps ) 4 Steps (QC): 6 (Pt will be Mod I with steps ) 12 Steps (QC): 6 (Pt will be Mod I with steps ) Picking up an Object (QC): 6 Does the Pt use WC or Scooter?: Yes Wheel 50 feet with 2 turns (QC: 6 (Pt will be Mod I with w/c mobility. ) Type: Manual Wheel 150 feet: 6 (Pt will be Mod I with w/c mobility. ) Type: Manual PT Plan Problem List Problem List: Activity Tolerance, Functional Strength, Safety, Balance, Gait, Transfer, Bed Mobility, ROM Treatment/Plan Treatment Plan: Continue Plan of Care Treatment Plan: Bed Mobility, Concurrent Therapy, Education, Functional Activity Luz[place], Functional Strength, Group Therapy, Gait, Safety, Therapeutic Exercise, Transfers Treatment Duration: November 30, 2022 Frequency: At least 5 of 7 days/Wk (IRF) Estimated Hrs Per Day: 1.5 hours per day Patient and/or Family Agrees t: Yes Safety Risks/Education Patient Education: Gait Training, Transfer Techniques, W/C Management Teaching Recipient: Patient Teaching Methods: Demonstration, Discussion Response to Teaching: Return Demonstration, Reinforcement Needed Discharge Recommendations Therapy Discharge Recommendati: Home & Family Equpiment Recommendations-D/C: Front Wheeled Walker Time Time In: 1300 Time Out: 1330 DATE: November 26, 2022 Total Billed Treatment Time: 30 Total Billed Treatment 30 min 1 visit EX x 1 FA x 1 MANOHAR PHILLIP PT November 26, 2022 14:49
[2022-11-26] MEDS: RIVAROXABAN 20 MG TABLET (XARELTO) PO SCH (17:11)
[2022-11-26] MEDS: MONTELUKAST 10 MG (SINGULAIR) TAB PO SCH (19:14)
[2022-11-26] MEDS: ALPRAZolam 0.25 MG (XANAX) TAB PO PRN (19:14)
[2022-11-26 19:26] VITALS: BP 150/83
[2022-11-26] MEDS: traZODone 150 MG (DESYREL) TABLET PO SCH (21:11)
[2022-11-27] MEDS: HYDROcodone/APAP 5 MG/325 MG (LORTAB) TAB PO PRN ×4 (01:40→20:36)
[2022-11-27] MEDS: LEVOTHYROXINE 125 MCG (LEVOTHROID) TABLET PO SCH (05:49)
--- NOTE | 2022-11-27 06:02 | PM&R Progress Note ---
Subjective HPI/CC On Admission Date Seen by Provider: November 27, 2022 Time Seen by Provider: 12:00 Subjective/Events-last exam 11/27/2022: No major issues Miconazole powder for under folds will be ordered No pain until she ambulates Labs reviewed 11/26/2022: Doing very well Pain controlled No pain as long as she doesn't move No falls Review of Systems General: Fatigue, Malaise Musculoskeletal: leg pain Objective Exam Vital Signs Vital Signs Date Time Temp Pulse Resp B/P (MAP) Pulse Ox O2 Delivery O2 Flow Rate FiO2 11/27/22 09:10 Room Air 11/27/22 07:33 36.8 89 142/83 (102) 96 11/26/22 19:26 18 Capillary Refill : General Appearance: No Apparent Distress, WD/WN, Chronically ill HEENT: PERRL/EOMI, Normal ENT Inspection, Pharynx Normal Neck: Full Range of Motion, Normal Inspection, Non Tender, Supple, Carotid Bruit Respiratory: Chest Non Tender, Lungs Clear, Normal Breath Sounds, No Accessory Muscle Use, No Respiratory Distress Cardiovascular: No Edema, No Gallop, No JVD, No Murmur, Normal Peripheral Pulses, Irregularly Irregular Gastrointestinal: Normal Bowel Sounds, No Organomegaly, No Pulsatile Mass, Non Tender, Soft Back: Normal Inspection, No CVA Tenderness, No Vertebral Tenderness Extremity: Normal Capillary Refill, Normal Inspection, Normal Range of Motion (except right leg), Non Tender, No Calf Tenderness, No Pedal Edema Neurologic/Psychiatric: Alert, Oriented x3, No Motor/Sensory Deficits, meter attendant II- XII Norm as Tested, Abnormal Gait, Depressed Affect, Motor Weakness Skin: Normal Color, Warm/Dry Lymphatic: No Adenopathy Results/Procedures Lab Patient resulted labs reviewed. FIM Transfers Therapy Code Descriptions/Definitions Functional [place] Measure: 0=Not Assessed/NA 4=Minimal Assistance 1=Total Assistance 5=Supervision or Setup 2=Maximal Assistance 6=Modified [place] 3=Moderate Assistance 7=Complete IndependenceSCALE: Activities may be completed with or without assistive devices. 7-Ejdlmwacnx-geiuwlk completes the activity by him/herself with no assistance from a helper. 5-Set-up or Clean-up Assistance-helper sets up or cleans up; patient completes activity. [place] assists only prior to or following the activity. 4-Supervision or Touching Assistance-helper provides verbal cues and/or touching/steadying and/or contact guard assistance as patient completes a ctivity. Assistance may be provided throughout the activity or intermittently. 3-Partial/Moderate Assistance-helper does LESS THAN HALF the effort. [place] lifts, holds or supports trunk or limbs, but provides less than half the effort. 2-Substantial/Maximal Assistance-helper does MORE THAN HALF the effort. [place] lifts or holds trunk or limbs and provides more than half the effort. 6-Dzxfwamxb-pqqiih does ALL the effort. Patient does none of the effort to complete the activity. Or, the assistance of 2 or more helpers is required for the patient to complete the activity. If activity was not attempted, code reason: 7-Patient Refused. 9-Not Applicable-not attempted and the patient did not perform the activity before the current illness, exacerbation or injury. 10-Not Attempted due to Environmental Limitations-(lack of equipment, weather restraints, etc.). 88-Not Attempted due to Medical Conditions or Safety Concerns. Roll Left to Right (QC): 3 (Min/Mod A for R LE ) Sit to Lying (QC): 3 (Min/Mod A for R LE ) Sit to Stand (QC): 4 Chair/Smz-vz-Imhqz Xfer(QC): 4 (CGA for transfer from bed and w/c and Min A for toilet transfer) Car Transfer (QC): 3 (Min A for R LE ) Gait Training Does the Patient Walk?: Yes Walk 10 feet (QC): 4 Walk 50 ft with 2 Turns(QC): 4 Walk 150 ft (QC): 88 Walking 10ft/uneven surface-QC: 88 Gait Persons Needed: 1 Gait Assistive Device: FWW Wheelchair Training Does the Pt Use a Wheelchair?: Yes Distance: 150ft Wheel 50 ft with 2 turns (QC): 4 Wheel 150 ft (QC): 4 Type of Wheelchair: Manual Stair Training 1 Step (curb) (QC): 4 4 Steps (QC): 4 12 Steps (QC): 88 Balance Picking up an Object (QC): 4 (with asbestos removal supervisor ) ADL-Treatment Eating (QC): 6 Oral Hygiene (QC): 6 Shower/Bathe Self (QC): 4 Upper Body Dressing (QC): 5 Lower Body Dressing (QC): 3 On/Off Footwear (QC): 3 Toileting Hygiene (QC): 4 Toilet Transfer (QC): 4 Assessment/Plan Assessment and Plan Assess & Plan/Chief Complaint Assessment: Right femur fracture s/p repair Post op acute blood loss anemia s/p 1 unit of transfusion Syncope s/p loop recorder Post op constipation-resolved Hypothyroidism AF OAC Dementia? Iron def Vit B12 def Plan: Aggressive PT OT Monitor labs Monitor creat 11/26/2022: Continue pain management Supplement B12 and Iron 11/27/2022: Supplement B12 and iron Pain control (1) Closed intertrochanteric fracture of right hip Status: Acute (2) Hypertension Status: Chronic (3) Hyperlipidemia Status: Chronic (4) Hypothyroidism Status: Chronic (5) Debility Status: Acute (6) Anemia Status: Acute (7) Anticoagulated Status: Acute (8) Fall on same level Status: Acute (9) Syncope Status: Acute (10) HX OVARIAN CANCER EXTENDING INTO COLON FRANDY TINOCO DO November 27, 2022 06:02
[2022-11-27 07:33] VITALS: BP 142/83
[2022-11-27] MEDS: CELECOXIB 100 MG (CeleBREX) CAP PO SCH ×2 (07:36→20:36)
[2022-11-27] MEDS: SENNA W/DOCUSATE (SENOKOT S) TABLET PO SCH ×2 (07:37→20:37)
[2022-11-27] MEDS: DOCUSATE SODIUM 100 MG (COLACE) CAP PO SCH ×2 (07:37→20:37)
[2022-11-27] MEDS: PANTOPRAZOLE 40 MG (PROTONIX) TAB PO SCH (07:37)
[2022-11-27] MEDS: meTOprolol TARTRATE 50 MG (LOPRESSOR) TAB PO SCH ×2 (07:37→20:36)
[2022-11-27] MEDS: amLODIPine 5 MG (NORVASC) TAB PO SCH (07:37)
[2022-11-27] MEDS: FLUTICASONE NASAL SPRAY (FLONASE) 16 GM BTL NS SCH (07:38)
[2022-11-27] MEDS ORDERED: CYANOCOBALAMIN INJ 1000 MCG/ML IM ONE (08:00)
[2022-11-27] MEDS ORDERED: IRON SUCROSE 200 MG/10 ML (VENOFER) VIAL IV SCH (09:00)
--- NOTE | 2022-11-27 09:00 | Occupational Ther Daily Note ---
OT Current Status-Daily Note Subjective Pt alert, sitting in recliner. Pt agrees to therapy. No c/o pain. Pt did have dizzy episode during session. Assist x2 to sit EOB for safety. Nrsg notified and came to monitor pt. Pt took 5 min recovery time to clear. Mental Status/Objective Patient Orientation: Person, Confused, Place, Time, Situation ADL-Treatment Pt agrees to shower. Pt requires verbal cues and monitoring for safety, standing and ambulating without requesting assistance. CGA for toilet transfer. Supervision for toileting. SBA while pt completes shower using shower bench, grabbars, hand held shower and LH sponge. Independent sitting at sink to complete oral care. Set up for UBD. Using refinisher and minimal verbal cues, pt able to complete LBD with SBA. Min A and set up to use sock aide to don socks, doffs independently. Therapy Code Descriptions/Definitions Functional [place] Measure: 0=Not Assessed/NA 4=Minimal Assistance 1=Total Assistance 5=Supervision or Setup 2=Maximal Assistance 6=Modified [place] 3=Moderate Assistance 7=Complete IndependenceSCALE: Activities may be completed with or without assistive devices. 8-Prmyjrgzrp-dhetvmv completes the activity by him/herself with no assistance from a helper. 5-Set-up or Clean-up Assistance-helper sets up or cleans up; patient completes activity. [place] assists only prior to or following the activity. 4-Supervision or Touching Assistance-helper provides verbal cues and/or touching/steadying and/or contact guard assistance as patient completes activity. Assistance may be provided throughout the activity or intermittently. 3-Partial/Moderate Assistance-helper does LESS THAN HALF the effort. [place] lifts, holds or supports trunk or limbs, but provides less than half the effort. 2-Substantial/Maximal Assistance-helper does MORE THAN HALF the effort. [place] lifts or holds trunk or limbs and provides more than half the effort. 6-Ppdxgmmtv-dyyumy does ALL the effort. Patient does none of the effort to complete the activity. Or, the assistance of 2 or more helpers is required for the patient to complete the activity. If activity was not attempted, code reason: 7-Patient Refused. 9-Not Applicable-not attempted and the patient did not perform the activity before the current illness, exacerbation or injury. 10-Not Attempted due to Environmental Limitations-(lack of equipment, weather restraints, etc.). 88-Not Attempted due to Medical Conditions or Safety Concerns. Eating (QC): 6 Oral Hygiene (QC): 6 Shower/Bathe Self (QC): 4 Upper Body Dressing (QC): 5 Lower Body Dressing (QC): 4 On/Off Footwear: 3 Toileting Hygiene (QC): 4 Toilet Transfer (QC): 4 Other Treatment Pt completes 3 B UE medium resistance theraband exercises, 2 sets 10 reps to increase strength and activity tolerance for daily functional tasks. Pt instructed to complete these exercises in room using HEP. After therapy, pt sitting in recliner with call light/phone in reach. All needs met in room. OT Short Term Goals Short Term Goals Time Frame: December 04, 2022 Upper body dressin Lower body dressin Putting on/taking off footwear: 5 OT Jail Goals Jail Goals Time Frame: December 11, 2022 Acute change in mental status: 0 Inattention: 0 Disorganized thinkin Altered level of consciousness: 0 Eating (QC): 6 Oral Hygiene (QC): 6 Toileting Hygiene (QC): 6 Shower/Bathe Self (QC): 6 Upper Body Dressing (QC): 6 Lower Body Dressing (QC): 6 On/Off Footwear (QC): 6 Additional Goals: 1-Demonstrate ADL Tasks, 2-Verbalize Understanding, 3- ImproveStrength/Luzma 1=Demonstrate adherence to instructed precautions during ADL tasks. 2=Patient will verbalize/demonstrate understanding of assistive devices/modifications for ADL. 3=Patient will improve strength/tolerance for activity to enable patient to perform ADL's. OT Education/Plan Problem List/Assessment Assessment: Decreased Activ Tolerance, Decreased Safety Aware, Decreased UE Strength, Impaired Cognition, Impaired Self-Care Skills Discharge Recommendations Plan/Recommendations: Continue POC Treatment Plan/Plan of Care Patient would benefit from OT for education, treatment and training to promote independence in ADL's, mobility, safety and/or upper extremity function for ADL's. Plan of Care: ADL Retraining, Functional Mobility, Group Exercise/Act as Ind, UE Funct Exercise/Act Treatment Duration: December 11, 2022 Frequency: At least 5 of 7 days/Wk (IRF) Estimated Hrs Per Day: 1.5 hours per day Agreement: Yes Rehab Potential: Good Time Start Time: 07:30 Stop Time: 09:00 DATE: November 27, 2022 Total Time Billed (hr/min): 90 Billed Treatment Time 1 visit-ADL 5 (75 min) EX 1 (15 min) SHAMAR QUINN November 27, 2022 09:00
[2022-11-27] MEDS: polyethylene glycoL POWDER 17 GM (MIRALAX) PACK PO SCH ×2 (09:55→20:37)
--- NOTE | 2022-11-27 10:12 | ST Cognitive Linguistic Eval ---
Speech Evaluation-General Medical Diagnosis s/p R IM Addy Onset Date: November 18, 2022 Therapy Diagnosis Therapy Diagnosis: Impaired Cognition (Baseline) Medical History Pertinent Medical History: Dementia Reviewed History: Yes Social History Current Living Status: Spouse (and other family ) Speech PLF-Current Status Prior Level of Function Per patient (and patient's ), the patient has experienced "that memory stuff" for "years and years, that's nothing new." The patient and spouse denied challenges with speech or language, stating the patient is able to clearly communicate her wants and needs efficiently. The patient (confirmed by ) stated her spouse completes all financial resposibilities (bills, etc.) and her and nephew organize her medications/pills each week. Subjective The patient was seated upright in the recliner, awake and alert, upon entrance to her room by the clinician. The patient greeted the clinician appropriately and was agreeable to participation in the cognitive linguistic treatment session. The patient's was at bedside and remains for the assessment. Language Eval: Auditory Comprehends Simple Yes/No Ques: Functional Indent/Objects Multiple Kathleen: Functional Follows 1-Step Commands: Functional Follows General Conversations: Functional Language Eval: Verbal Language Completes Spontaneous Greeting: Functional Produces Auto, Serial Info: Functional Imitates Simple Words/Phrases: Functional Word Finding: Mild Requests Basic Needs: Functional States Basic Personal Info: Functional Language Evaluation: Reading Follows Simple Written Direct: Functional Language Evaluation: Writing Writes to Simple Dictation: Functional Cognitive Patient Orientation The patient was independently oriented to location, month, and year. The patient stated the day of the week was "Wednesday." Objective Cognitive Domain Attention: Mild (Verbal redirection and repetition of instructions was frequent ly provided throughout the assessment. ) Memory: Moderate (Baseline.) Problem Solving: Moderate (Baseline.) Visuospatial Skills: WNL Composite Severity Rating: Mild (Mild to moderate.) Clock Drawing Severity Rating: Mild Objective Formal/Standardized Tests [facility] Mental Status Exam (UMS) Results The patient demonstrated a result of +15/30 on the SLUMS correlating to a neurocognitive rating of "dementia" per SLUMS rating protocol. Oral Motor/Speech Production The patient does not display dysarthria or apraxia of speech. The patient is 100% intelligible in known and unknown contexts. 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 The patient (confirmed by ) reports she has experienced a decline in her memory function "for years" and suspects "it's all part of getting older." While the patient does report cognitive baseline function, the patient and spouse are agreeable to initiate cognitive therapy in attempts to provide functional memory strategies for increased safety following discharge. Due to baseline function, great improvements in cognitive function are not expected throughout the stay, however, the patient may be able to improve recall of rehabilitation practices and exercises therefore improving overall safety. If positive progression towards speech pathology goals are not experienced, speech pathology will discharge the patient from skilled speech pathology services. Speech Short Term Goals Short Term Goals Short Term Goals 1. The patient will recall and display functional memory strategies with 80% accuracy, independently. Time Frame-ST Days. Speech Dairy Processing Supervisor Goals [facility] Goals 1. The patient will display improved cognitive linguistic skills for safe discharge to the least restrictive environment. Time Frame: 10 to 14 Days. Speech-Plan Treatment Plan Speech Therapy Treatment Plan: Continue Plan of Care Treatment Duration: December 11, 2022 Frequency: Modified Program (IRF) (Three to Five Times per Week.) Estimated Hrs Per Day: .5 hour per day Rehab Potential: Guarded (Baseline Function.) Barriers to Learning: - As the patient is at her self-reported (confirmed by spouse) baseline cognitive level, great cognitive improvements to baseline are not expected by this clinician. However, the patient may be able to improve safety and recall of rehabilitation practices and exercises, as well as, provide functional memory strategies for use following discharge. If positive progression is not experienced, speech pathology will discharge the patient from skilled speech pathology services. - The patient's frequently provides responses and answers to cognitive screening questions to aid the patient throughout the evaluation. Pt/Family Agrees to Plan: Yes Safety Risks/Education Teaching Recipient: Patient, Significant Other Teaching Methods: Discussion Response to Teaching: Verbalize Understanding Education Topics Provided: Results of SLUMS, Recommendations, Plan of Care Time Speech Therapy Time In: 09:00 Speech Therapy Time Out: 09:30 DATE: November 27, 2022 Total Billed Time: 30 Billed Treatment Time 1, TERRA YUSUF [facility]IZ[facility] ST November 27, 2022 10:12
--- NOTE | 2022-11-27 11:55 | Physical Therapy Daily Note ---
PT Daily Note-Current Subjective Pt reports she is doing well and is agreeable to treatment. Pt reported R hip/thigh pain at 6/10. Pain Numeric Pain Scale: 6 Location: Right Location Body Site: Hip Section J - Health Conditions 1. Rarely or not at all 2. Occasionally 3. Frequently 4. Almost constantly 8. Unable to answer Pain Effect on Sleep: 4 Pain Interference with Therapy: 4 Pain Interference w/Day-to-Day: 4 Transfers SCALE: Activities may be completed with or without assistive devices. 3-Cvnzowobzq-txoduwr completes the activity by him/herself with no assistance from a helper. 5-Set-up or Clean-up Assistance-helper sets up or cleans up; patient completes activity. [place] assists only prior to or following the activity. 4-Supervision or Touching Assistance-helper provides verbal cues and/or touching/steadying and/or contact guard assistance as patient completes activity. Assistance may be provided throughout the activity or intermittently. 3-Partial/Moderate Assistance-helper does LESS THAN HALF the effort. [place] lif ts, holds or supports trunk or limbs, but provides less than half the effort. 2-Substantial/Maximal Assistance-helper does MORE THAN HALF the effort. [place] lifts or holds trunk or limbs and provides more than half the effort. 9-Alchnbxlr-bzgtjd does ALL the effort. Patient does none of the effort to complete the activity. Or, the assistance of 2 or more helpers is required for the patient to complete the activity. If activity was not attempted, code reason: 7-Patient Refused. 9-Not Applicable-not attempted and the patient did not perform the activity before the current illness, exacerbation or injury. 10-Not Attempted due to Environmental Limitations-(lack of equipment, weather restraints, etc.). 88-Not Attempted due to Medical Conditions or Safety Concerns. Sit to Stand (QC): 4 Chair/Rlz-yt-Uefjn Xfer(QC): 4 Toilet Transfer (QC): 4 Weight Bearing Right Lower Extremity: Right Partial Weight Bearing (PWB R LE 50%) Left Lower Extremity: Left Full Weight Bearing Pt edu on 50% PWB to the R LE with scale. Pt is able to abide by 50% PWB Gait Training Does the Patient Walk?: Yes Walk 10 feet (QC): 4 Walk 50 ft with 2 Turns(QC): 4 Walk 150 ft (QC): 4 Walking 10ft/uneven surface-QC: 4 Gait Persons Needed: 1 Gait Assistive Device: FWW Wheelchair Training Does the Pt Use a Wheelchair?: Yes Wheel 50 ft with 2 turns (QC): 4 Wheel 150 ft (QC): 4 Type of Wheelchair: Manual Treatments Pt completed functional transfers and toilet transfer with CGA. Pt was able to pull down/up pants at the toilet with SBA/CGA. Pt ambulated 150ft, 120ft, and 90ft with the FWW and CGA (w/c follow). Pt completed seated B LE Ther Ex x 20 reps each with the red Tband: PF/DF, LAQ, Marching, Hip add/abd, and HS curls. Pt completed a standing puzzle with CGA/SBA at the [facility]. Pt stood for 2 bouts of 7 min and 30 sec and 5 min while working on the puzzle. Pt left in room with , call light in reach, and all needs met. Assessment Current Status: Good Progress Pt tolerated PT well. PT Senior Living Goals Lumber Press Operator Goals PT Lumber Press Operator Goals Time Frame: December 07, 2022 Roll Left & Right (QC): 6 (Pt will complete bed mobility and functional transfers with Mod I. ) Sit to Lying (QC): 6 (Pt will complete bed mobility and functional transfers with Mod I. ) Lying-Sitting on Side/Bed(QC): 6 (Pt will complete bed mobility and functional transfers with Mod I. ) Sit to Stand (QC): 6 (Pt will complete bed mobility and functional transfers with Mod I. ) Chair/Rbz-va-Aygqq Xfer(QC): 6 (Pt will complete bed mobility and functional transfers with Mod I. ) Toilet Transfer (QC): 6 (Pt will complete bed mobility and functional transfers with Mod I. ) Car Transfer (QC): 5 Does the Patient Walk: Yes Walk 10 feet (QC): 6 (Pt will ambulate 350ft with the FWW and Mod I, in order to show progression towards PLOF. ) Walk 50ft with 2 Turns (QC): 6 (Pt will ambulate 350ft with the FWW and Mod I, in order to show progression towards PLOF. ) Walk 150 ft (QC): 6 (Pt will ambulate 350ft with the FWW and Mod I, in order to show progression towards PLOF. ) Walking 10ft on Uneven Surface: 6 (Pt will ambulate 350ft with the FWW and Mod I, in order to show progression towards PLOF. ) 1 Step (curb) (QC): 6 (Pt will be Mod I with steps ) 4 Steps (QC): 6 (Pt will be Mod I with steps ) 12 Steps (QC): 6 (Pt will be Mod I with steps ) Picking up an Object (QC): 6 Does the Pt use WC or Scooter?: Yes Wheel 50 feet with 2 turns (QC: 6 (Pt will be Mod I with w/c mobility. ) Type: Manual Wheel 150 feet: 6 (Pt will be Mod I with w/c mobility. ) Type: Manual PT Plan Problem List Problem List: Activity Tolerance, Functional Strength, Safety, Balance, Gait, Transfer, Bed Mobility Treatment/Plan Treatment Plan: Continue Plan of Care Treatment Plan: Bed Mobility, Concurrent Therapy, Education, Functional Activity [place], Functional Strength, Group Therapy, Gait, Safety, Therapeutic Exercise, Transfers Treatment Duration: November 30, 2022 Frequency: At least 5 of 7 days/Wk (IRF) Estimated Hrs Per Day: 1.5 hours per day Patient and/or Family Agrees t: Yes Safety Risks/Education Patient Education: Gait Training, Transfer Techniques, Reviewed Precautions Teaching Recipient: Patient Teaching Methods: Demonstration Response to Teaching: Return Demonstration, Reinforcement Needed Discharge Recommendations Therapy Discharge Recommendati: Home & Family Equpiment Recommendations-D/C: Front Wheeled Walker, Manual Wheelchair Time Time In: 1045 Time Out: 1145 DATE: November 27, 2022 Total Billed Treatment Time: 60 Total Billed Treatment 60 min 1 visit GT x 2 EX x 1 FA x 1 MANOHAR PHILLIP PT November 27, 2022 11:55
--- NOTE | 2022-11-27 13:25 | Physical Therapy Daily Note ---
PT Daily Note-Current Subjective Pt reports she is doing well and agreeable to PT. Pt reported R hip pain at 5/10. Pain Numeric Pain Scale: 5-Moderate Pain Location: Right Location Body Site: Hip Section J - Health Conditions 1. Rarely or not at all 2. Occasionally 3. Frequently 4. Almost constantly 8. Unable to answer Pain Effect on Sleep: 4 Pain Interference with Therapy: 4 Pain Interference w/Day-to-Day: 4 Transfers SCALE: Activities may be completed with or without assistive devices. 4-Ltnyaaxozd-vngnsbe completes the activity by him/herself with no assistance from a helper. 5-Set-up or Clean-up Assistance-helper sets up or cleans up; patient completes activity. [place] assists only prior to or following the activity. 4-Supervision or Touching Assistance-helper provides verbal cues and/or touching/steadying and/or contact guard assistance as patient completes activity. Assistance may be provided throughout the activity or intermittently. 3-Partial/Moderate Assistance-helper does LESS THAN HALF the effort. [place] lifts, holds or supports trunk or limbs, but provides less than half the effort. 2-Substantial/Maximal Assistance-helper does MORE THAN HALF the effort. [place] lifts or holds trunk or limbs and provides more than half the effort. 5-Szwkrayjx-bmqshj does ALL the effort. Patient does none of the effort to complete the activity. Or, the assistance of 2 or more helpers is required for the patient to complete the activity. If activity was not attempted, code reason: 7-Patient Refused. 9-Not Applicable-not attempted and the patient did not perform the activity before the current illness, exacerbation or injury. 10-Not Attempted due to Environmental Limitations-(lack of equipment, weather restraints, etc.). 88-Not Attempted due to Medical Conditions or Safety Concerns. Sit to Stand (QC): 4 Chair/Bdd-qn-Yrhyv Xfer(QC): 4 Weight Bearing Right Lower Extremity: Right Partial Weight Bearing (PWB R LE 50%) Left Lower Extremity: Left Full Weight Bearing Pt edu on 50% PWB to the R LE with scale. Pt is able to abide by 50% PWB Gait Training Does the Patient Walk?: Yes Walk 10 feet (QC): 4 Walk 50 ft with 2 Turns(QC): 4 Gait Persons Needed: 1 Gait Assistive Device: FWW Treatments Pt completed functional transfers with CGA. Pt ambulated 80ft x 2 with the FWW and CGA. Pt completed 8 min on the nu-step at level 2. Pt left sitting up in the recliner at the end of treatment, with present, call light within reach, and all needs met. Assessment Current Status: Good Progress Pt tolerated PT well PT Prison Goals Ring Cutter Lathe Operator Goals PT Prison Goals Time Frame: December 07, 2022 Roll Left & Right (QC): 6 (Pt will complete bed mobility and functional transfers with Mod I. ) Sit to Lying (QC): 6 (Pt will complete bed mobility and functional transfers with Mod I. ) Lying-Sitting on Side/Bed(QC): 6 (Pt will complete bed mobility and functional transfers with Mod I. ) Sit to Stand (QC): 6 (Pt will complete bed mobility and functional transfers with Mod I. ) Chair/Ffl-sb-Svfdx Xfer(QC): 6 (Pt will complete bed mobility and functional transfers with Mod I. ) Toilet Transfer (QC): 6 (Pt will complete bed mobility and functional transfers with Mod I. ) Car Transfer (QC): 5 Does the Patient Walk: Yes Walk 10 feet (QC): 6 (Pt will ambulate 350ft with the FWW and Mod I, in order to show progression towards PLOF. ) Walk 50ft with 2 Turns (QC): 6 (Pt will ambulate 350ft with the FWW and Mod I, in order to show progression towards PLOF. ) Walk 150 ft (QC): 6 (Pt will ambulate 350ft with the FWW and Mod I, in order to show progression towards PLOF. ) Walking 10ft on Uneven Surface: 6 (Pt will ambulate 350ft with the FWW and Mod I, in order to show progression towards PLOF. ) 1 Step (curb) (QC): 6 (Pt will be Mod I with steps ) 4 Steps (QC): 6 (Pt will be Mod I with steps ) 12 Steps (QC): 6 (Pt will be Mod I with steps ) Picking up an Object (QC): 6 Does the Pt use WC or Scooter?: Yes Wheel 50 feet with 2 turns (QC: 6 (Pt will be Mod I with w/c mobility. ) Type: Manual Wheel 150 feet: 6 (Pt will be Mod I with w/c mobility. ) Type: Manual PT Plan Problem List Problem List: Activity Tolerance, Functional Strength, Safety, Balance, Gait, Transfer, Bed Mobility, ROM Treatment/Plan Treatment Plan: Continue Plan of Care Treatment Plan: Bed Mobility, Concurrent Therapy, Education, Functional Activity [place], Functional Strength, Group Therapy, Gait, Safety, Therapeutic Exercise, Transfers Treatment Duration: November 30, 2022 Frequency: At least 5 of 7 days/Wk (IRF) Estimated Hrs Per Day: 1.5 hours per day Patient and/or Family Agrees t: Yes Safety Risks/Education Patient Education: Gait Training, Transfer Techniques Teaching Recipient: Patient Teaching Methods: Demonstration, Discussion Response to Teaching: Return Demonstration, Reinforcement Needed Discharge Recommendations Therapy Discharge Recommendati: Home & Family Equpiment Recommendations-D/C: Front Wheeled Walker, Manual Wheelchair Time Time In: 1300 Time Out: 1315 DATE: November 27, 2022 Total Billed Treatment Time: 15 Total Billed Treatment 15 min 1 visit FA x 1 MANOHAR PHILLIP PT November 27, 2022 13:25
[2022-11-27] MEDS: MICONAZOLE 2% POWDER (DESENEX AF) 90 GM TOP SCH ×2 (18:05→20:37)
[2022-11-27] MEDS: RIVAROXABAN 20 MG TABLET (XARELTO) PO SCH (18:05)
[2022-11-27 20:30] VITALS: BP 168/79
[2022-11-27] MEDS: MONTELUKAST 10 MG (SINGULAIR) TAB PO SCH (20:36)
[2022-11-27] MEDS: ALPRAZolam 0.25 MG (XANAX) TAB PO PRN (21:16)
[2022-11-27] MEDS: traZODone 150 MG (DESYREL) TABLET PO SCH (21:16)
[2022-11-28] MEDS: HYDROcodone/APAP 5 MG/325 MG (LORTAB) TAB PO PRN ×4 (03:50→21:56)
--- NOTE | 2022-11-28 06:06 | PM&R Progress Note ---
Subjective HPI/CC On Admission Date Seen by Provider: November 28, 2022 Time Seen by Provider: 09:30 Subjective/Events-last exam 11/28/2022: No major events No pain reported Doing well at bedside Vit B12 def discussed 11/27/2022: No major issues Miconazole powder for under folds will be ordered No pain until she ambulates Labs reviewed 11/26/2022: Doing very well Pain controlled No pain as long as she doesn't move No falls Review of Systems General: Fatigue, Malaise Objective Exam Vital Signs Vital Signs Date Time Temp Pulse Resp B/P (MAP) Pulse Ox O2 Delivery O2 Flow Rate FiO2 11/28/22 08:54 36.5 11/28/22 08:00 88 16 146/91 (109) 96 Room Air Capillary Refill : General Appearance: No Apparent Distress, WD/WN, Chronically ill HEENT: PERRL/EOMI, Normal ENT Inspection, Pharynx Normal Neck: Full Range of Motion, Normal Inspection, Non Tender, Supple, Carotid Bruit Respiratory: Chest Non Tender, Lungs Clear, Normal Breath Sounds, No Accessory Muscle Use, No Respiratory Distress Cardiovascular: No Edema, No Gallop, No JVD, No Murmur, Normal Peripheral Pulses, Irregularly Irregular Gastrointestinal: Normal Bowel Sounds, No Organomegaly, No Pulsatile Mass, Non Tender, Soft Back: Normal Inspection, No CVA Tenderness, No Vertebral Tenderness Extremity: Normal Capillary Refill, Normal Inspection, Normal Range of Motion (except right leg), Non Tender, No Calf Tenderness, No Pedal Edema Neurologic/Psychiatric: Alert, Oriented x3, No Motor/Sensory Deficits, electrostatic painter II- XII Norm as Tested, Abnormal Gait, Depressed Affect, Motor Weakness Skin: Normal Color, Warm/Dry Lymphatic: No Adenopathy Results/Procedures Lab Patient resulted labs reviewed. FIM Transfers Therapy Code Descriptions/Definitions Functional [place] Measure: 0=Not Assessed/NA 4=Minimal Assistance 1=Total Assistance 5=Supervision or Setup 2=Maximal Assistance 6=Modified [place] 3=Moderate Assistance 7=Complete IndependenceSCALE: Activities may be completed with or without assistive devices. 4-Hvwafvmzjj-kfskaob completes the activity by him/herself with no assistance from a helper. 5-Set-up or Clean-up Assistance-helper sets up or cleans up; patient completes activity. [place] assists only prior to or following the activity. 4-Supervision or Touching Assistance-helper provides verbal cues and/or touching/steadying and/or contact guard assistance as patient completes activity. Assistance may be provided throughout the activity or intermittently. 3-Partial/Moderate Assistance-helper does LESS THAN HALF the effort. [place] lifts, holds or supports trunk or limbs, but provides less than half the effort. 2-Substantial/Maximal Assistance-helper does MORE THAN HALF the effort. [place] lifts or holds trunk or limbs and provides more than half the effort. 6-Eujglocxe-sbqcoe does ALL the effort. Patient does none of the effort to complete the activity. Or, the assistance of 2 or more helpers is required for the patient to complete the activity. If activity was not attempted, code reason: 7-Patient Refused. 9-Not Applicable-not attempted and the patient did not perform the activity before the current illness, exacerbation or injury. 10-Not Attempted due to Environmental Limitations-(lack of equipment, weather restraints, etc.). 88-Not Attempted due to Medical Conditions or Safety Concerns. Roll Left to Right (QC): 3 (Min/Mod A for R LE ) Sit to Lying (QC): 3 (Min/Mod A for R LE ) Sit to Stand (QC): 4 Chair/Nar-an-Vfgkr Xfer(QC): 4 Car Transfer (QC): 3 (Min A for R LE ) Gait Training Does the Patient Walk?: Yes Walk 10 feet (QC): 4 Walk 50 ft with 2 Turns(QC): 4 Walk 150 ft (QC): 4 Walking 10ft/uneven surface-QC: 4 Gait Persons Needed: 1 Gait Assistive Device: FWW Wheelchair Training Does the Pt Use a Wheelchair?: Yes Distance: 150ft Wheel 50 ft with 2 turns (QC): 4 Wheel 150 ft (QC): 4 Type of Wheelchair: Manual Stair Training 1 Step (curb) (QC): 4 4 Steps (QC): 4 12 Steps (QC): 88 Balance Picking up an Object (QC): 4 (with medical practice administrator ) ADL-Treatment Eating (QC): 6 Oral Hygiene (QC): 6 Shower/Bathe Self (QC): 4 Upper Body Dressing (QC): 5 Lower Body Dressing (QC): 4 On/Off Footwear (QC): 3 Toileting Hygiene (QC): 4 Toilet Transfer (QC): 4 Assessment/Plan Assessment and Plan Assess & Plan/Chief Complaint Assessment: Right femur fracture s/p repair Post op acute blood loss anemia s/p 1 unit of transfusion Syncope s/p loop recorder Post op constipation-resolved Hypothyroidism AF OAC Dementia? Iron def Vit B12 def Plan: Aggressive PT OT Monitor labs Monitor creat 11/26/2022: Continue pain management Supplement B12 and Iron 11/27/2022: Supplement B12 and iron Pain control 11/28/2022: Improved status (1) Closed intertrochanteric fracture of right hip Status: Acute (2) Hypertension Status: Chronic (3) Hyperlipidemia Status: Chronic (4) Hypothyroidism Status: Chronic (5) Debility Status: Acute (6) Anemia Status: Acute (7) Anticoagulated Status: Acute (8) Fall on same level Status: Acute (9) Syncope Status: Acute (10) HX OVARIAN CANCER EXTENDING INTO COLON FRANDY TINOCO DO November 28, 2022 06:06
[2022-11-28] MEDS: CYANOCOBALAMIN 1,000 MCG (VITAMIN B-12) TABLET PO SCH (06:37)
[2022-11-28] MEDS: LEVOTHYROXINE 125 MCG (LEVOTHROID) TABLET PO SCH (06:37)
[2022-11-28 08:00] VITALS: BP 146/91
[2022-11-28] MEDS: PANTOPRAZOLE 40 MG (PROTONIX) TAB PO SCH (08:54)
[2022-11-28] MEDS: meTOprolol TARTRATE 50 MG (LOPRESSOR) TAB PO SCH ×2 (08:54→21:56)
[2022-11-28] MEDS: CELECOXIB 100 MG (CeleBREX) CAP PO SCH ×2 (08:54→21:56)
[2022-11-28] MEDS: amLODIPine 5 MG (NORVASC) TAB PO SCH (08:54)
[2022-11-28] MEDS: IRON SUCROSE 200 MG/10 ML (VENOFER) VIAL IV SCH (08:55)
[2022-11-28] MEDS: FLUTICASONE NASAL SPRAY (FLONASE) 16 GM BTL NS SCH (08:56)
[2022-11-28] MEDS: DOCUSATE SODIUM 100 MG (COLACE) CAP PO SCH ×2 (08:57→21:56)
[2022-11-28] MEDS: polyethylene glycoL POWDER 17 GM (MIRALAX) PACK PO SCH ×2 (08:57→21:45)
[2022-11-28] MEDS: SENNA W/DOCUSATE (SENOKOT S) TABLET PO SCH ×2 (08:57→21:56)
[2022-11-28] MEDS: MICONAZOLE 2% POWDER (DESENEX AF) 90 GM TOP SCH ×2 (08:58→21:56)
[2022-11-28] MEDS: RIVAROXABAN 20 MG TABLET (XARELTO) PO SCH (16:14)
[2022-11-28 20:30] VITALS: BP 148/76
[2022-11-28] MEDS: MONTELUKAST 10 MG (SINGULAIR) TAB PO SCH (21:55)
[2022-11-28] MEDS: traZODone 150 MG (DESYREL) TABLET PO SCH (21:56)
[2022-11-29] MEDS: CYANOCOBALAMIN 1,000 MCG (VITAMIN B-12) TABLET PO SCH (06:47)
[2022-11-29] MEDS: LEVOTHYROXINE 125 MCG (LEVOTHROID) TABLET PO SCH (06:48)
--- NOTE | 2022-11-29 07:34 | PM&R Progress Note ---
Subjective HPI/CC On Admission Date Seen by Provider: November 29, 2022 Time Seen by Provider: 12:00 Subjective/Events-last exam 11/29/2022: No major events BM regimen maintained No falls Pain controlled 11/28/2022: No major events No pain reported Doing well at bedside Vit B12 def discussed 11/27/2022: No major issues Miconazole powder for under folds will be ordered No pain until she ambulates Labs reviewed 11/26/2022: Doing very well Pain controlled No pain as long as she doesn't move No falls Review of Systems General: Fatigue, Malaise Objective Exam Vital Signs Vital Signs Date Time Temp Pulse Resp B/P (MAP) Pulse Ox O2 Delivery O2 Flow Rate FiO2 11/29/22 11:30 85 140/79 (99) 102 160/71 (100) 11/29/22 09:00 Room Air 11/29/22 08:00 36.9 18 97 Capillary Refill : General Appearance: No Apparent Distress, WD/WN, Chronically ill HEENT: PERRL/EOMI, Normal ENT Inspection, Pharynx Normal Neck: Full Range of Motion, Normal Inspection, Non Tender, Supple, Carotid Bruit Respiratory: Chest Non Tender, Lungs Clear, Normal Breath Sounds, No Accessory Muscle Use, No Respiratory Distress Cardiovascular: No Edema, No Gallop, No JVD, No Murmur, Normal Peripheral Pulses, Irregularly Irregular Gastrointestinal: Normal Bowel Sounds, No Organomegaly, No Pulsatile Mass, Non Tender, Soft Back: Normal Inspection, No CVA Tenderness, No Vertebral Tenderness Extremity: Normal Capillary Refill, Normal Inspection, Normal Range of Motion (except right leg), Non Tender, No Calf Tenderness, No Pedal Edema Neurologic/Psychiatric: Alert, Oriented x3, No Motor/Sensory Deficits, hand singer II- XII Norm as Tested, Abnormal Gait, Depressed Affect, Motor Weakness Skin: Normal Color, Warm/Dry Lymphatic: No Adenopathy Results/Procedures Lab Patient resulted labs reviewed. FIM Transfers Therapy Code Descriptions/Definitions Functional [place] Measure: 0=Not Assessed/NA 4=Minimal Assistance 1=Total Assistance 5=Supervision or Setup 2=Maximal Assistance 6=Modified [place] 3=Moderate Assistance 7=Complete IndependenceSCALE: Activities may be completed with or without assistive devices. 3-Dpifzdzttk-qwxxdik completes the activity by him/herself with no assistance from a helper. 5-Set-up or Clean-up Assistance-helper sets up or cleans up; patient completes activity. [place] assists only prior to or following the activity. 4-Supervision or Touching Assistance-helper provides verbal cues and/or touching/steadying and/or contact guard assistance as patient completes activity. Assistance may be provided throughout the activity or intermittently. 3-Partial/Moderate Assistance-helper does LESS THAN HALF the effort. [place] lifts, holds or supports trunk or limbs, but provides less than half the effort. 2-Substantial/Maximal Assistance-helper does MORE THAN HALF the effort. [place] lifts or holds trunk or limbs and provides more than half the effort. 4-Uqgawqalm-ixibok does ALL the effort. Patient does none of the effort to complete the activity. Or, the assistance of 2 or more helpers is required for the patient to complete the activity. If activity was not attempted, code reason: 7-Patient Refused. 9-Not Applicable-not attempted and the patient did not perform the activity before the current illness, exacerbation or injury. 10-Not Attempted due to Environmental Limitations-(lack of equipment, weather restraints, etc.). 88-Not Attempted due to Medical Conditions or Safety Concerns. Roll Left to Right (QC): 3 (Min/Mod A for R LE ) Sit to Lying (QC): 3 (Min/Mod A for R LE ) Sit to Stand (QC): 4 Chair/Zrs-wr-Avmlk Xfer(QC): 4 Car Transfer (QC): 3 (Min A for R LE ) Gait Training Does the Patient Walk?: Yes Walk 10 feet (QC): 4 Walk 50 ft with 2 Turns(QC): 4 Walk 150 ft (QC): 4 Walking 10ft/uneven surface-QC: 4 Gait Persons Needed: 1 Gait Assistive Device: FWW Wheelchair Training Does the Pt Use a Wheelchair?: Yes Distance: 150ft Wheel 50 ft with 2 turns (QC): 4 Wheel 150 ft (QC): 4 Type of Wheelchair: Manual Stair Training 1 Step (curb) (QC): 4 4 Steps (QC): 4 12 Steps (QC): 88 Balance Picking up an Object (QC): 4 (with knife setter ) ADL-Treatment Eating (QC): 6 Oral Hygiene (QC): 6 Shower/Bathe Self (QC): 4 Upper Body Dressing (QC): 5 Lower Body Dressing (QC): 4 On/Off Footwear (QC): 3 Toileting Hygiene (QC): 4 Toilet Transfer (QC): 4 Assessment/Plan Assessment and Plan Assess & Plan/Chief Complaint Assessment: Right femur fracture s/p repair Post op acute blood loss anemia s/p 1 unit of transfusion Syncope s/p loop recorder Post op constipation-resolved Hypothyroidism AF OAC Dementia? Iron def Vit B12 def Plan: Aggressive PT OT Monitor labs Monitor creat 11/26/2022: Continue pain management Supplement B12 and Iron 11/27/2022: Supplement B12 and iron Pain control 11/28/2022: Improved status 11/29/2022: Monitor closely (1) Closed intertrochanteric fracture of right hip Status: Acute (2) Hypertension Status: Chronic (3) Hyperlipidemia Status: Chronic (4) Hypothyroidism Status: Chronic (5) Debility Status: Acute (6) Anemia Status: Acute (7) Anticoagulated Status: Acute (8) Fall on same level Status: Acute (9) Syncope Status: Acute (10) HX OVARIAN CANCER EXTENDING INTO COLON FRANDY TINOCO DO November 29, 2022 07:34
[2022-11-29 08:00] VITALS: BP 136/81
[2022-11-29] MEDS: meTOprolol TARTRATE 50 MG (LOPRESSOR) TAB PO SCH ×2 (08:49→21:50)
[2022-11-29] MEDS: amLODIPine 5 MG (NORVASC) TAB PO SCH (08:49)
[2022-11-29] MEDS: PANTOPRAZOLE 40 MG (PROTONIX) TAB PO SCH (08:49)
[2022-11-29] MEDS: CELECOXIB 100 MG (CeleBREX) CAP PO SCH ×2 (08:49→21:50)
[2022-11-29] MEDS: DOCUSATE SODIUM 100 MG (COLACE) CAP PO SCH ×2 (08:52→21:50)
[2022-11-29] MEDS: polyethylene glycoL POWDER 17 GM (MIRALAX) PACK PO SCH ×2 (08:52→21:50)
[2022-11-29] MEDS: MICONAZOLE 2% POWDER (DESENEX AF) 90 GM TOP SCH ×2 (08:53→21:55)
[2022-11-29] MEDS: FLUTICASONE NASAL SPRAY (FLONASE) 16 GM BTL NS SCH (08:53)
[2022-11-29] MEDS: SENNA W/DOCUSATE (SENOKOT S) TABLET PO SCH ×2 (08:53→21:00)
[2022-11-29 11:30] VITALS: BP_SYST 140; BP_SYST 160; BP_DIAS 71; BP_DIAS 79
[2022-11-29] MEDS: HYDROcodone/APAP 5 MG/325 MG (LORTAB) TAB PO PRN ×2 (14:26→21:54)
[2022-11-29] MEDS ORDERED: CATHETER FLUSH 10 ML SYR IVP PRN (16:15)
[2022-11-29] MEDS: RIVAROXABAN 20 MG TABLET (XARELTO) PO SCH (16:58)
[2022-11-29 19:42] VITALS: BP 136/72
[2022-11-29] MEDS: MONTELUKAST 10 MG (SINGULAIR) TAB PO SCH (21:50)
[2022-11-29] MEDS: traZODone 150 MG (DESYREL) TABLET PO SCH (21:50)
[2022-11-29] MEDS: CATHETER FLUSH 10 ML SYR IVP SCH (21:54)
[2022-11-30 05:12] LABS: BASOPHILS % (AUTO) 1 % (0-10); EOSINOPHILS # (AUTO) 0.2 10^3/uL (0.0-0.3); EOSINOPHILS % (AUTO) 6 % (0-10); HEMATOCRIT 30 % (35-52); HEMOGLOBIN 9.2 g/dL (11.5-16.0); LYMPHOCYTES % (AUTO) 29 % (12-44); MEAN CORPUSCULAR HEMOGLOBIN 26 pg (25-34); MEAN CORPUSCULAR HGB CONC 31 g/dL (32-36); MEAN CORPUSCULAR VOLUME 84 fL (80-99); MEAN PLATELET VOLUME 8.5 fL (9.0-12.2); MONOCYTES # (AUTO) 0.4 10^3/uL (0.0-1.0); MONOCYTES % (AUTO) 11 % (0-12); NEUTROPHILS # (AUTO) 1.8 10^3/uL (1.8-7.8); NEUTROPHILS % (AUTO) 53 % (42-75); PLATELET COUNT 271 10^3/uL (130-400); WHITE BLOOD COUNT 3.4 10^3/uL (4.3-11.0)
--- NOTE | 2022-11-30 05:24 | PM&R Progress Note ---
Subjective HPI/CC On Admission Date Seen by Provider: November 30, 2022 Time Seen by Provider: 09:00 Subjective/Events-last exam 11/30/2022: No major issues Vit B12 and iron is helping her No pain reported Slept well last night 11/29/2022: No major events BM regimen maintained No falls Pain controlled 11/28/2022: No major events No pain reported Doing well at bedside Vit B12 def discussed 11/27/2022: No major issues Miconazole powder for under folds will be ordered No pain until she ambulates Labs reviewed 11/26/2022: Doing very well Pain controlled No pain as long as she doesn't move No falls Review of Systems General: Fatigue, Malaise Objective Exam Vital Signs Vital Signs Date Time Temp Pulse Resp B/P (MAP) Pulse Ox O2 Delivery O2 Flow Rate FiO2 11/30/22 20:46 36.7 89 20 136/79 (98) 97 Room Air Capillary Refill : General Appearance: No Apparent Distress, WD/WN, Chronically ill HEENT: PERRL/EOMI, Normal ENT Inspection, Pharynx Normal Neck: Full Range of Motion, Normal Inspection, Non Tender, Supple, Carotid Bruit Respiratory: Chest Non Tender, Lungs Clear, Normal Breath Sounds, No Accessory Muscle Use, No Respiratory Distress Cardiovascular: No Edema, No Gallop, No JVD, No Murmur, Normal Peripheral Pulses, Irregularly Irregular Gastrointestinal: Normal Bowel Sounds, No Organomegaly, No Pulsatile Mass, Non Tender, Soft Back: Normal Inspection, No CVA Tenderness, No Vertebral Tenderness Extremity: Normal Capillary Refill, Normal Inspection, Normal Range of Motion (except right leg), Non Tender, No Calf Tenderness, No Pedal Edema Neurologic/Psychiatric: Alert, Oriented x3, No Motor/Sensory Deficits, graduate teaching associate II- XII Norm as Tested, Abnormal Gait, Depressed Affect, Motor Weakness Skin: Normal Color, Warm/Dry Lymphatic: No Adenopathy Results/Procedures Lab Laboratory Tests 11/30/22 05:00 Patient resulted labs reviewed. FIM Transfers Therapy Code Descriptions/Definitions Functional [place] Measure: 0=Not Assessed/NA 4=Minimal Assistance 1=Total Assistance 5=Supervision or Setup 2=Maximal Assistance 6=Modified [place] 3=Moderate Assistance 7=Complete IndependenceSCALE: Activities may be completed with or without assistive devices. 4-Hqlxoapvpi-ujejuhe completes the activity by him/herself with no assistance from a helper. 5-Set-up or Clean-up Assistance-helper sets up or cleans up; patient completes activity. [place] assists only prior to or following the activity. 4-Supervision or Touching Assistance-helper provides verbal cues and/or touching/steadying and/or contact guard assistance as patient completes activity. Assistance may be provided throughout the activity or intermittently. 3-Partial/Moderate Assistance-helper does LESS THAN HALF the effort. [place] lifts, holds or supports trunk or limbs, but provides less than half the effort. 2-Substantial/Maximal Assistance-helper does MORE THAN HALF the effort. [place] lifts or holds trunk or limbs and provides more than half the effort. 2-Uflfjkwsp-iuoioo does ALL the effort. Patient does none of the effort to complete the activity. Or, the assistance of 2 or more helpers is required for the patient to complete the activity. If activity was not attempted, code reason: 7-Patient Refused. 9-Not Applicable-not attempted and the patient did not perform the activity before the current illness, exacerbation or injury. 10-Not Attempted due to Environmental Limitations-(lack of equipment, weather restraints, etc.). 88-Not Attempted due to Medical Conditions or Safety Concerns. Roll Left to Right (QC): 3 (Min/Mod A for R LE ) Sit to Lying (QC): 3 (Min/Mod A for R LE ) Sit to Stand (QC): 4 Chair/Ivo-qq-Kqsai Xfer(QC): 4 Car Transfer (QC): 3 (Min A for R LE ) Gait Training Does the Patient Walk?: Yes Walk 10 feet (QC): 4 Walk 50 ft with 2 Turns(QC): 4 Walk 150 ft (QC): 4 Walking 10ft/uneven surface-QC: 4 Gait Persons Needed: 1 Gait Assistive Device: FWW Wheelchair Training Does the Pt Use a Wheelchair?: Yes Distance: 150ft Wheel 50 ft with 2 turns (QC): 4 Wheel 150 ft (QC): 4 Type of Wheelchair: Manual Stair Training 1 Step (curb) (QC): 4 4 Steps (QC): 4 12 Steps (QC): 88 Balance Picking up an Object (QC): 4 (with security and privacy consultant ) ADL-Treatment Eating (QC): 6 Oral Hygiene (QC): 6 Shower/Bathe Self (QC): 4 Upper Body Dressing (QC): 5 Lower Body Dressing (QC): 4 On/Off Footwear (QC): 3 Toileting Hygiene (QC): 4 Toilet Transfer (QC): 4 Assessment/Plan Assessment and Plan Assess & Plan/Chief Complaint Assessment: Right femur fracture s/p repair Post op acute blood loss anemia s/p 1 unit of transfusion Syncope s/p loop recorder Post op constipation-resolved Hypothyroidism AF OAC Dementia? Iron def Vit B12 def Plan: Aggressive PT OT Monitor labs Monitor creat 11/26/2022: Continue pain management Supplement B12 and Iron 11/27/2022: Supplement B12 and iron Pain control 11/28/2022: Improved status 11/29/2022: Monitor closely 11/30/2022: Monitor closely B12 and iron (1) Closed intertrochanteric fracture of right hip Status: Acute (2) Hypertension Status: Chronic (3) Hyperlipidemia Status: Chronic (4) Hypothyroidism Status: Chronic (5) Debility Status: Acute (6) Anemia Status: Acute (7) Anticoagulated Status: Acute (8) Fall on same level Status: Acute (9) Syncope Status: Acute (10) HX OVARIAN CANCER EXTENDING INTO COLON FRANDY TINOCO DO November 30, 2022 05:24
[2022-11-30 05:30] LABS: ALBUMIN 3.5 GM/DL (3.2-4.5); BILIRUBIN,TOTAL 1.3 MG/DL (0.1-1.0); CALCIUM 9.4 MG/DL (8.5-10.1); CREATININE SERUM 1.42 MG/DL (0.60-1.30); POTASSIUM 3.7 MMOL/L (3.6-5.0); TOTAL PROTEIN 5.9 GM/DL (6.4-8.2)
[2022-11-30] MEDS: LEVOTHYROXINE 125 MCG (LEVOTHROID) TABLET PO SCH (06:25)
[2022-11-30] MEDS: CYANOCOBALAMIN 1,000 MCG (VITAMIN B-12) TABLET PO SCH (06:25)
[2022-11-30] MEDS: CATHETER FLUSH 10 ML SYR IVP SCH ×3 (06:25→20:36)
[2022-11-30 08:11] VITALS: BP 111/61
[2022-11-30] MEDS: PANTOPRAZOLE 40 MG (PROTONIX) TAB PO SCH (08:13)
[2022-11-30] MEDS: meTOprolol TARTRATE 50 MG (LOPRESSOR) TAB PO SCH ×2 (08:13→20:32)
[2022-11-30] MEDS: amLODIPine 5 MG (NORVASC) TAB PO SCH (08:13)
[2022-11-30] MEDS: IRON SUCROSE 200 MG/10 ML (VENOFER) VIAL IV SCH (08:13)
[2022-11-30] MEDS: CELECOXIB 100 MG (CeleBREX) CAP PO SCH ×2 (08:13→20:33)
[2022-11-30] MEDS: DOCUSATE SODIUM 100 MG (COLACE) CAP PO SCH ×2 (08:13→20:32)
[2022-11-30] MEDS: MICONAZOLE 2% POWDER (DESENEX AF) 90 GM TOP SCH ×2 (08:14→20:31)
[2022-11-30] MEDS: FLUTICASONE NASAL SPRAY (FLONASE) 16 GM BTL NS SCH (08:14)
[2022-11-30] MEDS: SENNA W/DOCUSATE (SENOKOT S) TABLET PO SCH ×2 (08:14→20:32)
[2022-11-30] MEDS: HYDROcodone/APAP 5 MG/325 MG (LORTAB) TAB PO PRN (08:19)
--- NOTE | 2022-11-30 09:31 | Cardiology Progress Note ---
Subjective Date Seen by Provider: November 30, 2022 Time Seen by Provider: 09:29 Subjective/Events-last exam Patient sitting up in chair, still reporting some dizziness and lightheadedness with standing. Denies any chest pain Objective-Cardiology Exam Last Set of Vital Signs Vital Signs 11/29/22 11/30/22 21:50 08:11 Temp 36.4 Pulse 75 Resp 18 B/P (MAP) 111/61 (78) Pulse Ox 99 O2 Delivery Room Air I&O Intake and Output 11/30/22 00:00 Intake Total 1980 ml Balance 1980 ml Intake Oral 1980 ml # Voids 14 # Urine Diapers 2 # Bowel Movements 2 General: Alert, Oriented X3, Cooperative HEENT: Atraumatic, PERRLA Neck: Supple, No JVD, No Thyromegaly Lungs: Clear to Auscultation, Normal Air Movement Heart: Regular Rate, Normal S1, Normal S2, No Murmurs Abdomen: Normal Bowel Sounds, Soft, No Tenderness, No Hepatosplenomegaly, No Masses Extremities: No Clubbing, No Cyanosis, No Edema, Normal Pulses, No Tenderness /Swelling Skin: No Rashes, No Breakdown, No Significant Lesion Neuro: Normal Gait, Normal Speech, Strength at 5/5 X4 Ext, Normal Tone, Sensation Intact Psych/Mental Status: Mental Status NL, Mood NL Results Lab Laboratory Tests 11/30/22 05:00 A/P-Cardiology Admission Diagnosis Syncope Right hip rx AFib HTN Assessment/Plan Syncope, unknown etiology, most probably labile hypertension. Resulted in hip fracture Patient is being monitored on telemetry New loop monitor was implanted on November 23, 2022. Moderate hypertension at this time, will avoid aggressive blood pressure control Still having dizzy spells and lightheaded Adding midodrine and evaluate tolerance and response Hypertension, poor control, will accept elevated blood pressure to minimize the chances of syncope. Still having dizziness with standing. I will add low dose midodrine and monitor tolerance and response. Right-sided hip fracture, hip surgery on November 18, 2022. Receiving physical therapy. Chest pain, nonspecific etiology, has been having chronic chest pain on and off. Feeling better. No further episodes of chest pain were reported. Continue to monitor Permanent atrial fibrillation with variable response, had an episode of aberrant conduction, seen by Dr. Emerson, had a loop recorder implanted in November 2018, having multiple episodes of atrial fibrillation and pauses. Continue to monitor [id number] score is 3, yearly risk of stroke without oral anticoagulation is 3.2 percent. Patient is maintained on Xarelto. Episodes of dizziness with exertion, reporting worsening symptoms recently, has history of atrial fibrillation and questionable sinus node dysfunction Continue to monitor Coronary artery disease, cardiac catheterization was done in August 2015 showing mild ectasia in the proximal LAD with slow flow in the proximal LAD at otherwise small vessel disease no significant obstructive disease. Had another cardiac catheterization done in March 2019 after having an abnormal stress test showing coronary ectasia, no change compared to 2015. Currently EKG did not show any acute abnormality on November 17, 2022. Continue to monitor 2D Echo done on November 18, 2022 with ejection fraction 60 to 65%, PA pressure 40 to 45 mmHg, mild mitral regurgitation moderate tricuspid regurgitation. Mild bilateral nonobstructive carotid artery stenosis, continue to monitor COPD, obstructive sleep apnea, seen by Dr. Boston in the past. Managed by primary care physician Hyperlipidemia, continue to monitor Ovarian cancer, had abdominal extensive surgery, recurrent malignancy, Moderately differentiated carcinoma although very status post total abdominal hysterectomy/BSO and partial colectomy in August 2020, CEA 125 is elevated, CEA normal, receiving carbo plus Taxol. Reporting repeat scans showing improvement. Hypothyroidism managed by primary care physician Prediabetes, patient was educated on diet and weight loss. Obesity, BMI 33, we discussed weight loss and diet Supervisory-Addendum Brief Supervisory Addendum Participated in pt care: history, MDM, physical Personally performed: exam, history, MDM Care discussed with: ROSARIO Results interpretation: Verified all documentation Notes: Patient was seen and evaluated with Peri, examination performed, management plan was discussed, agree with the current scribed note, I made few changes to the note using Italic font Patient was seen at bedside, sitting comfortably Still reporting occasional orthostatic dizziness, using compression socks I will add midodrine although it will cause elevation in her blood pressure but I hope that it will improve those dizzy spells Has permanent atrial fibrillation Loop monitor did not show any bradycardia PERI BERG November 30, 2022 09:31 ANSON POMPA MD November 30, 2022 12:05
[2022-11-30] MEDS: polyethylene glycoL POWDER 17 GM (MIRALAX) PACK PO SCH ×2 (09:42→19:32)
--- NOTE | 2022-11-30 09:50 | Occupational Ther Daily Note ---
OT Current Status-Daily Note Subjective Pt alert, sitting in recliner. Pt agrees to therapy. Pt c/o pain, 5/10, reported to nrsg then nrsg brought pain meds. Mental Status/Objective Patient Orientation: Person, Confused, Place Attachments: IV, Other-See Comments (loop recorder) ADL-Treatment Pt agrees to shower. Independent with eating though is not a breakfast eater. Pt used FWW to retrieve clothing off of bed with SBA. Pt then completed toilet transfer and toileting using FWW, BSC and grabbars independently. SBA for safety to complete shower using grabbars, hand held shower and LH sponge. UBD completes by self in sitting. SBA for LBD dressing. SBA and education to don R sock with sock aide and dons L sock independently, doffs B socks independently. Pt stands at sink to complete oral care independently. After session, pt sitting in recliner with call light/phone in reach. All needs met in room. Therapy Code Descriptions/Definitions Functional [place] Measure: 0=Not Assessed/NA 4=Minimal Assistance 1=Total Assistance 5=Supervision or Setup 2=Maximal Assistance 6=Modified [place] 3=Moderate Assistance 7=Complete IndependenceSCALE: Activities may be completed with or without assistive devices. 3-Ivoimsrjsg-skfpljg completes the activity by him/herself with no assistance from a helper. 5-Set-up or Clean-up Assistance-helper sets up or cleans up; patient completes activity. [place] assists only prior to or following the activity. 4-Supervision or Touching Assistance-helper provides verbal cues and/or touching/steadying and/or contact guard assistance as patient completes activity. Assistance may be provided throughout the activity or intermittently. 3-Partial/Moderate Assistance-helper does LESS THAN HALF the effort. [place] lifts, holds or supports trunk or limbs, but provides less than half the effort. 2-Substantial/Maximal Assistance-helper does MORE THAN HALF the effort. [place] lifts or holds trunk or limbs and provides more than half the effort. 0-Mrikdvobf-rtwzuq does ALL the effort. Patient does none of the effort to comp lete the activity. Or, the assistance of 2 or more helpers is required for the patient to complete the activity. If activity was not attempted, code reason: 7-Patient Refused. 9-Not Applicable-not attempted and the patient did not perform the activity before the current illness, exacerbation or injury. 10-Not Attempted due to Environmental Limitations-(lack of equipment, weather restraints, etc.). 88-Not Attempted due to Medical Conditions or Safety Concerns. Eating (QC): 6 Oral Hygiene (QC): 6 Shower/Bathe Self (QC): 4 Upper Body Dressing (QC): 5 Lower Body Dressing (QC): 4 On/Off Footwear: 4 Toileting Hygiene (QC): 6 Toilet Transfer (QC): 6 OT Short Term Goals Short Term Goals Time Frame: December 04, 2022 Upper body dressin Lower body dressin Putting on/taking off footwear: 5 OT Retirement Goals Retirement Goals Time Frame: December 11, 2022 Acute change in mental status: 0 Inattention: 0 Disorganized thinkin Altered level of consciousness: 0 Eating (QC): 6 Oral Hygiene (QC): 6 Toileting Hygiene (QC): 6 Shower/Bathe Self (QC): 6 Upper Body Dressing (QC): 6 Lower Body Dressing (QC): 6 On/Off Footwear (QC): 6 Additional Goals: 1-Demonstrate ADL Tasks, 2-Verbalize Understanding, 3- ImproveStrength/Luzma 1=Demonstrate adherence to instructed precautions during ADL tasks. 2=Patient will verbalize/demonstrate understanding of assistive devices/modifications for ADL. 3=Patient will improve strength/tolerance for activity to enable patient to perform ADL's. OT Education/Plan Problem List/Assessment Assessment: Decreased Activ Tolerance, Decreased Safety Aware, Impaired Cognition, Impaired Self-Care Skills Discharge Recommendations Plan/Recommendations: Continue POC Treatment Plan/Plan of Care Patient would benefit from OT for education, treatment and training to promote independence in ADL's, mobility, safety and/or upper extremity function for ADL's. Plan of Care: ADL Retraining, Functional Mobility, Group Exercise/Act as Ind, UE Funct Exercise/Act Treatment Duration: December 11, 2022 Frequency: At least 5 of 7 days/Wk (IRF) Estimated Hrs Per Day: 1.5 hours per day Agreement: Yes Rehab Potential: Guarded (Baseline Function.) Time Start Time: 07:00 Stop Time: 08:15 DATE: November 30, 2022 Total Time Billed (hr/min): 75 Billed Treatment Time 1 visit-ADL 5 (75 min) SHAMAR QUINN November 30, 2022 09:50
[2022-11-30] MEDS: MIDODRINE 10 MG (PROAMATINE) TAB PO SCH ×2 (13:42→20:32)
--- NOTE | 2022-11-30 14:08 | Speech Therapy Daily Note ---
Speech Daily Progress Note Subjective Date Seen by Provider: November 30, 2022 Time Seen by Provider: 09:00 The patient was seated upright in her recliner, awake and alert, upon entrance to her room by the clinician. The patient greeted the clinician appropriately and was agreeable to participation in the cognitive linguistic treatment session. The patient has two family members at bedside, who leave the room throughout the skilled treatment session. Objective - Orientation: The patient and clinician practiced orientation strategies on this date. The patient stated the month was 'May," with attempts to self- correct to "March, no we're getting closer to June." The clinician provided maximum verbal cues towards season, recent holidays, and upcoming dates, however, the patient was unable to identify the month as "November." The patient stated the day of the week was "" and the year was "2002." Orientation information was provided to the patient and her direction was pointed towards the information on the in-room white board. At the close of the session, the patient was able to identify the information from the white board to provide accurately to the clinician. - Internal and External Memory Strategies were introduced on this date. The patient stated, "I have a calendar but I don't put anything on it." The patient stated she has appointment cards from physicians she keeps in her wallet but she doesn't look at those either. The clinician encouraged the patient to initiate calendar use by placing important information and reminders on the calendar. The clinician introduced visualization and association as internal memory strategies and will continue practice on the subsequent treatment date. Assessment Assessment Current Status: Poor Progress Treatment Plan Continue Plan of Care Speech Short Term Goals Short Term Goals Short Term Goals 1. The patient will recall and display functional memory strategies with 80% accuracy, independently. Time Frame-ST Days. Speech Longterm Goals [employer] Goals 1. The patient will display improved cognitive linguistic skills for safe discharge to the least restrictive environment. Time Frame: 10 to 14 Days. Speech-Plan Treatment Plan Speech Therapy Treatment Plan: Continue Plan of Care Treatment Duration: December 11, 2022 Frequency: Modified Program (IRF) (Three to Five Times per Week.) Estimated Hrs Per Day: .5 hour per day Rehab Potential: Guarded (Baseline Function.) Safety Risks/Education Teaching Recipient: Patient Teaching Methods: Demonstration, Discussion Response to Teaching: Reinforcement Needed Education Topics Provided: Orientation and Memory Strategies Time Speech Therapy Time In: :00 Speech Therapy Time Out: 09:30 DATE: December 01, 2022 Total Billed Time: 30 Billed Treatment Time 1, MOHIT ALEXANDER November 30, 2022 14:08
--- NOTE | 2022-11-30 14:28 | Physical Therapy Daily Note ---
PT Daily Note-Current Subjective Pt reports she is doing well today and is agreeable to treatment. Pt reported R hip pain at 5/10. Pain Numeric Pain Scale: 5-Moderate Pain Location: Right Location Body Site: Hip Section J - Health Conditions 1. Rarely or not at all 2. Occasionally 3. Frequently 4. Almost constantly 8. Unable to answer Pain Effect on Sleep: 4 Pain Interference with Therapy: 4 Pain Interference w/Day-to-Day: 4 Transfers SCALE: Activities may be completed with or without assistive devices. 9-Pdofhntbyc-sfoyzkg completes the activity by him/herself with no assistance from a helper. 5-Set-up or Clean-up Assistance-helper sets up or cleans up; patient completes activity. [place] assists only prior to or following the activity. 4-Supervision or Touching Assistance-helper provides verbal cues and/or touching/steadying and/or contact guard assistance as patient completes activity. Assistance may be provided throughout the activity or intermittently. 3-Partial/Moderate Assistance-helper does LESS THAN HALF the effort. [place] lifts, holds or supports trunk or limbs, but provides less than half the effort. 2-Substantial/Maximal Assistance-helper does MORE THAN HALF the effort. [place] lifts or holds trunk or limbs and provides more than half the effort. 8-Vvxozcsvm-gfseqr does ALL the effort. Patient does none of the effort to complete the activity. Or, the assistance of 2 or more helpers is required for the patient to complete the activity. If activity was not attempted, code reason: 7-Patient Refused. 9-Not Applicable-not attempted and the patient did not perform the activity before the current illness, exacerbation or injury. 10-Not Attempted due to Environmental Limitations-(lack of equipment, weather restraints, etc.). 88-Not Attempted due to Medical Conditions or Safety Concerns. Sit to Stand (QC): 4 Chair/Gdx-we-Qkcom Xfer(QC): 4 Weight Bearing Right Lower Extremity: Right Partial Weight Bearing (PWB R LE 50%) Left Lower Extremity: Left Full Weight Bearing Pt edu on 50% PWB to the R LE with scale. Pt is able to abide by 50% PWB Gait Training Does the Patient Walk?: Yes Walk 10 feet (QC): 4 Walk 50 ft with 2 Turns(QC): 4 Walk 150 ft (QC): 4 Gait Persons Needed: 1 Gait Assistive Device: FWW Wheelchair Training Does the Pt Use a Wheelchair?: Yes Wheel 50 ft with 2 turns (QC): 4 Wheel 150 ft (QC): 4 Type of Wheelchair: Manual Treatments Pt completed functional transfers with SBA. Pt ambulated 180ft, 110ft, and 80ft with the FWW and CGA. Pt completed seated B LE Ther Ex x 20 reps each with the red Tband. Pt completed 2 bouts of standing, while working on a puzzle, with the FWW and SBA (6 min each). Pt completed 12 min on the nu-step on level 3. Pt left sitting up in the recliner with call light in reach and all needs met. Assessment Current Status: Good Progress Pt tolerated PT well. PT Snf Goals Network Pricing Consultant Goals PT Network Pricing Consultant Goals Time Frame: December 07, 2022 Roll Left & Right (QC): 6 (Pt will complete bed mobility and functional tra nsfers with Mod I. ) Sit to Lying (QC): 6 (Pt will complete bed mobility and functional transfers with Mod I. ) Lying-Sitting on Side/Bed(QC): 6 (Pt will complete bed mobility and functional transfers with Mod I. ) Sit to Stand (QC): 6 (Pt will complete bed mobility and functional transfers with Mod I. ) Chair/Gul-wn-Wjwss Xfer(QC): 6 (Pt will complete bed mobility and functional transfers with Mod I. ) Toilet Transfer (QC): 6 (Pt will complete bed mobility and functional transfers with Mod I. ) Car Transfer (QC): 5 Does the Patient Walk: Yes Walk 10 feet (QC): 6 (Pt will ambulate 350ft with the FWW and Mod I, in order to show progression towards PLOF. ) Walk 50ft with 2 Turns (QC): 6 (Pt will ambulate 350ft with the FWW and Mod I, in order to show progression towards PLOF. ) Walk 150 ft (QC): 6 (Pt will ambulate 350ft with the FWW and Mod I, in order to show progression towards PLOF. ) Walking 10ft on Uneven Surface: 6 (Pt will ambulate 350ft with the FWW and Mod I, in order to show progression towards PLOF. ) 1 Step (curb) (QC): 6 (Pt will be Mod I with steps ) 4 Steps (QC): 6 (Pt will be Mod I with steps ) 12 Steps (QC): 6 (Pt will be Mod I with steps ) Picking up an Object (QC): 6 Does the Pt use WC or Scooter?: Yes Wheel 50 feet with 2 turns (QC: 6 (Pt will be Mod I with w/c mobility. ) Type: Manual Wheel 150 feet: 6 (Pt will be Mod I with w/c mobility. ) Type: Manual PT Plan Problem List Problem List: Activity Tolerance, Functional Strength, Safety, Balance, Gait, Transfer, Bed Mobility, ROM Treatment/Plan Treatment Plan: Continue Plan of Care Treatment Plan: Bed Mobility, Concurrent Therapy, Education, Functional Activity Luzma, Functional Strength, Group Therapy, Gait, Safety, Therapeutic Exercise, Transfers Treatment Duration: November 30, 2022 Frequency: At least 5 of 7 days/Wk (IRF) Estimated Hrs Per Day: 1.5 hours per day Patient and/or Family Agrees t: Yes Safety Risks/Education Patient Education: Gait Training, Transfer Techniques, Reviewed Precautions Teaching Recipient: Patient Teaching Methods: Demonstration, Discussion Response to Teaching: Verbalize Understanding, Return Demonstration, Reinforcement Needed Discharge Recommendations Therapy Discharge Recommendati: Home & Family Equpiment Recommendations-D/C: Front Wheeled Walker, Manual Wheelchair Time Time In: 1045 Time Out: 1200 DATE: November 30, 2022 Total Billed Treatment Time: 75 Total Billed Treatment 75 min 1 visit GT x 2 EX x 1 FA x 2 MANOHAR PHILLIP PT November 30, 2022 14:28
[2022-11-30] MEDS: RIVAROXABAN 20 MG TABLET (XARELTO) PO SCH (17:31)
[2022-11-30] MEDS: MONTELUKAST 10 MG (SINGULAIR) TAB PO SCH (20:32)
[2022-11-30] MEDS: traZODone 150 MG (DESYREL) TABLET PO SCH (20:32)
[2022-11-30 20:46] VITALS: BP 136/79
--- NOTE | 2022-12-01 05:19 | PM&R Progress Note ---
Subjective HPI/CC On Admission Date Seen by Provider: December 01, 2022 Time Seen by Provider: 09:00 Subjective/Events-last exam 12/01/2022: No major issues Ambulating well DC No pain 11/30/2022: No major issues Vit B12 and iron is helping her No pain reported Slept well last night 11/29/2022: No major events BM regimen maintained No falls Pain controlled 11/28/2022: No major events No pain reported Doing well at bedside Vit B12 def discussed 11/27/2022: No major issues Miconazole powder for under folds will be ordered No pain until she ambulates Labs reviewed 11/26/2022: Doing very well Pain controlled No pain as long as she doesn't move No falls Review of Systems General: Fatigue, Malaise Musculoskeletal: leg pain Objective Exam Vital Signs Vital Signs Date Time Temp Pulse Resp B/P (MAP) Pulse Ox O2 Delivery O2 Flow Rate FiO2 12/01/22 08:16 36.7 81 20 129/58 (81) 96 Room Air Capillary Refill : General Appearance: No Apparent Distress, WD/WN, Chronically ill HEENT: PERRL/EOMI, Normal ENT Inspection, Pharynx Normal Neck: Full Range of Motion, Normal Inspection, Non Tender, Supple, Carotid Bruit Respiratory: Chest Non Tender, Lungs Clear, Normal Breath Sounds, No Accessory Muscle Use, No Respiratory Distress Cardiovascular: No Edema, No Gallop, No JVD, No Murmur, Normal Peripheral Pulses, Irregularly Irregular Gastrointestinal: Normal Bowel Sounds, No Organomegaly, No Pulsatile Mass, Non Tender, Soft Back: Normal Inspection, No CVA Tenderness, No Vertebral Tenderness Extremity: Normal Capillary Refill, Normal Inspection, Normal Range of Motion (except right leg), Non Tender, No Calf Tenderness, No Pedal Edema Neurologic/Psychiatric: Alert, Oriented x3, No Motor/Sensory Deficits, reception II- XII Norm as Tested, Abnormal Gait, Depressed Affect, Motor Weakness Skin: Normal Color, Warm/Dry Lymphatic: No Adenopathy Results/Procedures Lab Patient resulted labs reviewed. FIM Transfers Therapy Code Descriptions/Definitions Functional [place] Measure: 0=Not Assessed/NA 4=Minimal Assistance 1=Total Assistance 5=Supervision or Setup 2=Maximal Assistance 6=Modified [place] 3=Moderate Assistance 7=Complete IndependenceSCALE: Activities may be completed with or without assistive devices. 2-Oexgylkicb-sdbbfwv completes the activity by him/herself with no assistance from a helper. 5-Set-up or Clean-up Assistance-helper sets up or cleans up; patient completes activity. [place] assists only prior to or following the activity. 4-Supervision or Touching Assistance-helper provides verbal cues and/or touching/steadying and/or contact guard assistance as patient completes activity. Assistance may be provided throughout the activity or intermittently. 3-Partial/Moderate Assistance-helper does LESS THAN HALF the effort. [place] lifts, holds or supports trunk or limbs, but provides less than half the effort. 2-Substantial/Maximal Assistance-helper does MORE THAN HALF the effort. [place] lifts or holds trunk or limbs and provides more than half the effort. 5-Zjvtvaflt-dwcmeb does ALL the effort. Patient does none of the effort to complete the activity. Or, the assistance of 2 or more helpers is required for the patient to complete the activity. If activity was not attempted, code reason: 7-Patient Refused. 9-Not Applicable-not attempted and the patient did not perform the activity before the current illness, exacerbation or injury. 10-Not Attempted due to Environmental Limitations-(lack of equipment, weather restraints, etc.). 88-Not Attempted due to Medical Conditions or Safety Concerns. Roll Left to Right (QC): 3 (Min/Mod A for R LE ) Sit to Lying (QC): 3 (Min/Mod A for R LE ) Sit to Stand (QC): 4 Chair/Ava-am-Yjpyj Xfer(QC): 4 Car Transfer (QC): 3 (Min A for R LE ) Gait Training Does the Patient Walk?: Yes Walk 10 feet (QC): 4 Walk 50 ft with 2 Turns(QC): 4 Walk 150 ft (QC): 4 Walking 10ft/uneven surface-QC: 4 Gait Persons Needed: 1 Gait Assistive Device: FWW Wheelchair Training Does the Pt Use a Wheelchair?: Yes Distance: 150ft Wheel 50 ft with 2 turns (QC): 4 Wheel 150 ft (QC): 4 Type of Wheelchair: Manual Stair Training 1 Step (curb) (QC): 4 4 Steps (QC): 4 12 Steps (QC): 88 Balance Picking up an Object (QC): 4 (with automated equipment engineer technician ) ADL-Treatment Eating (QC): 6 Oral Hygiene (QC): 6 Shower/Bathe Self (QC): 4 Upper Body Dressing (QC): 5 Lower Body Dressing (QC): 4 On/Off Footwear (QC): 4 Toileting Hygiene (QC): 6 Toilet Transfer (QC): 6 Assessment/Plan Assessment and Plan Assess & Plan/Chief Complaint Assessment: Right femur fracture s/p repair Post op acute blood loss anemia s/p 1 unit of transfusion Syncope s/p loop recorder Post op constipation-resolved Hypothyroidism AF OAC Dementia? Iron def Vit B12 def Plan: Aggressive PT OT Monitor labs Monitor creat 11/26/2022: Continue pain management Supplement B12 and Iron 11/27/2022: Supplement B12 and iron Pain control 11/28/2022: Improved status 11/29/2022: Monitor closely 11/30/2022: Monitor closely B12 and iron 12/01/2022: No pain reported (1) Closed intertrochanteric fracture of right hip Status: Acute (2) Hypertension Status: Chronic (3) Hyperlipidemia Status: Chronic (4) Hypothyroidism Status: Chronic (5) Debility Status: Acute (6) Anemia Status: Acute (7) Anticoagulated Status: Acute (8) Fall on same level Status: Acute (9) Syncope Status: Acute (10) HX OVARIAN CANCER EXTENDING INTO COLON FRANDY TINOCO DO December 01, 2022 05:19
[2022-12-01] MEDS: LEVOTHYROXINE 125 MCG (LEVOTHROID) TABLET PO SCH (06:30)
[2022-12-01] MEDS: CATHETER FLUSH 10 ML SYR IVP SCH ×3 (06:30→19:56)
[2022-12-01] MEDS: CYANOCOBALAMIN 1,000 MCG (VITAMIN B-12) TABLET PO SCH (06:30)
[2022-12-01] MEDS: HYDROcodone/APAP 5 MG/325 MG (LORTAB) TAB PO PRN (06:30)
--- NOTE | 2022-12-01 07:24 | Occupational Ther Daily Note ---
OT Current Status-Daily Note Subjective Pt alert, sitting in recliner. Pt agrees to therapy. No c/o pain at this time. Pt does c/o having diarrhea throughout the night, but reports she does feel better this AM. Mental Status/Objective Patient Orientation: Person, Place, Time, Situation ADL-Treatment Pt requests to use toilet. SBA for ambulation using FWW to bathroom. Pt independent with toilet transfer and toileting. Independent with eating. Independent standing at sink to complete oral care. Therapy Code Descriptions/Definitions Functional [place] Measure: 0=Not Assessed/NA 4=Minimal Assistance 1=Total Assistance 5=Supervision or Setup 2=Maximal Assistance 6=Modified [place] 3=Moderate Assistance 7=Complete IndependenceSCALE: Activities may be completed with or without assistive devices. 6-Yeyvryfojt-xjcbais completes the activity by him/herself with no assistance from a helper. 5-Set-up or Clean-up Assistance-helper sets up or cleans up; patient completes activity. [place] assists only prior to or following the activity. 4-Supervision or Touching Assistance-helper provides verbal cues and/or touching/steadying and/or contact guard assistance as patient completes activity. Assistance may be provided throughout the activity or intermittently. 3-Partial/Moderate Assistance-helper does LESS THAN HALF the effort. [place] lifts, holds or supports trunk or limbs, but provides less than half the effort. 2-Substantial/Maximal Assistance-helper does MORE THAN HALF the effort. [place] lifts or holds trunk or limbs and provides more than half the effort. 3-Yxdsekszu-pcvwgg does ALL the effort. Patient does none of the effort to complete the activity. Or, the assistance of 2 or more helpers is required for the patient to complete the activity. If activity was not attempted, code reason: 7-Patient Refused. 9-Not Applicable-not attempted and the patient did not perform the activity before the current illness, exacerbation or injury. 10-Not Attempted due to Environmental Limitations-(lack of equipment, weather restraints, etc.). 88-Not Attempted due to Medical Conditions or Safety Concerns. Eating (QC): 6 Oral Hygiene (QC): 6 Toileting Hygiene (QC): 6 Toilet Transfer (QC): 6 Other Treatment Pt completed 2 sets 10 reps of 3 B UE exercises using 3# hand wt to increase strength for daily functional tasks. Skilled instruction for correct technique and modifications when needed. After session, pt sitting in recliner with call light/phone in reach. All needs met in room. OT Short Term Goals Short Term Goals Time Frame: December 04, 2022 Upper body dressin Lower body dressin Putting on/taking off footwear: 5 OT Sdv Pilot/Navigator/Dds Operator Goals Sdv Pilot/Navigator/Dds Operator Goals Time Frame: December 11, 2022 Acute change in mental status: 0 Inattention: 0 Disorganized thinkin Altered level of consciousness: 0 Eating (QC): 6 Oral Hygiene (QC): 6 Toileting Hygiene (QC): 6 Shower/Bathe Self (QC): 6 Upper Body Dressing (QC): 6 Lower Body Dressing (QC): 6 On/Off Footwear (QC): 6 Additional Goals: 1-Demonstrate ADL Tasks, 2-Verbalize Understanding, 3- ImproveStrength/Luzma 1=Demonstrate adherence to instructed precautions during ADL tasks. 2=Patient will verbalize/demonstrate understanding of assistive devices/modif ications for ADL. 3=Patient will improve strength/tolerance for activity to enable patient to perform ADL's. OT Education/Plan Problem List/Assessment Assessment: Decreased Activ Tolerance, Impaired Cognition, Impaired Self-Care Skills Discharge Recommendations Plan/Recommendations: Continue POC Treatment Plan/Plan of Care Patient would benefit from OT for education, treatment and training to promote independence in ADL's, mobility, safety and/or upper extremity function for ADL's. Plan of Care: ADL Retraining, Functional Mobility, Group Exercise/Act as Ind, UE Funct Exercise/Act Treatment Duration: December 11, 2022 Frequency: At least 5 of 7 days/Wk (IRF) Estimated Hrs Per Day: 1.5 hours per day Agreement: Yes Rehab Potential: Guarded (Baseline Function.) Time Start Time: 07:00 Stop Time: 08:00 DATE: December 01, 2022 Total Time Billed (hr/min): 60 Billed Treatment Time 1 visit-ADL 2 (37 min) EX 2 (23 min) SHAMAR QUINN December 01, 2022 07:23
[2022-12-01] MEDS: DOCUSATE SODIUM 100 MG (COLACE) CAP PO SCH ×2 (08:13→19:30)
[2022-12-01] MEDS: SENNA W/DOCUSATE (SENOKOT S) TABLET PO SCH ×2 (08:13→19:31)
[2022-12-01] MEDS: polyethylene glycoL POWDER 17 GM (MIRALAX) PACK PO SCH ×2 (08:13→19:31)
[2022-12-01] MEDS: MICONAZOLE 2% POWDER (DESENEX AF) 90 GM TOP SCH ×2 (08:13→19:56)
[2022-12-01] MEDS: FLUTICASONE NASAL SPRAY (FLONASE) 16 GM BTL NS SCH (08:13)
[2022-12-01] MEDS: PANTOPRAZOLE 40 MG (PROTONIX) TAB PO SCH (08:14)
[2022-12-01] MEDS: CELECOXIB 100 MG (CeleBREX) CAP PO SCH ×2 (08:14→19:56)
[2022-12-01] MEDS: amLODIPine 5 MG (NORVASC) TAB PO SCH (08:14)
[2022-12-01] MEDS: MIDODRINE 10 MG (PROAMATINE) TAB PO SCH ×3 (08:14→19:56)
--- NOTE | 2022-12-01 08:14 | Cardiology Progress Note ---
Subjective Date Seen by Provider: December 01, 2022 Time Seen by Provider: 07:55 Subjective/Events-last exam Patient sitting up in chair, no new complaints. Objective-Cardiology Exam Last Set of Vital Signs Vital Signs 12/01/22 08:16 Temp 36.7 Pulse 81 Resp 20 B/P (MAP) 129/58 (81) Pulse Ox 96 O2 Delivery Room Air I&O Intake and Output 12/01/22 00:00 Intake Total 1150 ml Balance 1150 ml Intake Oral 1150 ml # Voids 9 General: Alert, Oriented X3, Cooperative HEENT: Atraumatic, PERRLA Neck: Supple, No JVD, No Thyromegaly Lungs: Clear to Auscultation, Normal Air Movement Heart: Regular Rate, Normal S1, Normal S2, No Murmurs Abdomen: Normal Bowel Sounds, Soft, No Tenderness, No Hepatosplenomegaly, No Masses Extremities: No Clubbing, No Cyanosis, No Edema, Normal Pulses, No Tenderness/Swelling Skin: No Rashes, No Breakdown, No Significant Lesion Neuro: Normal Gait, Normal Speech, Strength at 5/5 X4 Ext, Normal Tone, Sensation Intact Psych/Mental Status: Mental Status NL, Mood NL A/P-Cardiology Admission Diagnosis Syncope Right hip rx AFib HTN Assessment/Plan Syncope, unknown etiology, most probably labile hypertension. Resulted in hip fracture Patient is being monitored on telemetry New loop monitor was implanted on November 23, 2022. Moderate hypertension at this time, will avoid aggressive blood pressure control Still having dizzy spells and lightheaded Midodrine added yesterday. I will d/c amlodipine, continue to monitor. Hypertension, poor control, will accept elevated blood pressure to minimize the chances of syncope. Still having dizziness with standing. I will d/c amlodipine. Right-sided hip fracture, hip surgery on November 18, 2022. Receiving physical therapy. Chest pain, nonspecific etiology, has been having chronic chest pain on and off. Feeling better. No further episodes of chest pain were reported. Continue to monitor Permanent atrial fibrillation with variable response, had an episode of aberrant conduction, seen by Dr. Emerson, had a loop recorder implanted in November 2018, having multiple episodes of atrial fibrillation and pauses. Continue to monitor [id number] score is 3, yearly risk of stroke without oral anticoagulation is 3.2 percent. Patient is maintained on Xarelto. Episodes of dizziness with exertion, reporting worsening symptoms recently, has history of atrial fibrillation and questionable sinus node dysfunction Continue to monitor Coronary artery disease, cardiac catheterization was done in August 2015 showing mild ectasia in the proximal LAD with slow flow in the proximal LAD at otherwise small vessel di sease no significant obstructive disease. Had another cardiac catheterization done in March 2019 after having an abnormal stress test showing coronary ectasia, no change compared to 2015. Currently EKG did not show any acute abnormality on November 17, 2022. Continue to monitor 2D Echo done on November 18, 2022 with ejection fraction 60 to 65%, PA pressure 40 to 45 mmHg, mild mitral regurgitation moderate tricuspid regurgitation. Mild bilateral nonobstructive carotid artery stenosis, continue to monitor COPD, obstructive sleep apnea, seen by Dr. Boston in the past. Managed by primary care physician Hyperlipidemia, continue to monitor Ovarian cancer, had abdominal extensive surgery, recurrent malignancy, Moderately differentiated carcinoma although very status post total abdominal hysterectomy/BSO and partial colectomy in August 2020, CEA 125 is elevated, CEA normal, receiving carbo plus Taxol. Reporting repeat scans showing improvement. Hypothyroidism managed by primary care physician Prediabetes, patient was educated on diet and weight loss. Obesity, BMI 33, we discussed weight loss and diet Supervisory-Addendum Brief Supervisory Addendum Participated in pt care: history, MDM, physical Personally performed: exam, history, MDM Care discussed with: ROSARIO Results interpretation: Verified all documentation Notes: Patient was seen and evaluated with Peri, examination performed, management plan was discussed, agree with the current scribed note, I made few changes to the note using Italic font Patient was seen at bedside, feeling better. No new complaint. Still having borderline blood pressure, I stopped amlodipine and continued L opressor 50 twice daily Patient was started on midodrine on 11/30/2022 Continue to monitor PERI BERG December 01, 2022 08:14 ANSON POMPA MD December 01, 2022 09:06
[2022-12-01] MEDS: meTOprolol TARTRATE 50 MG (LOPRESSOR) TAB PO SCH ×2 (08:15→19:57)
[2022-12-01 08:16] VITALS: BP 129/58
--- NOTE | 2022-12-01 10:31 | Occupational Ther Daily Note ---
OT Current Status-Daily Note Subjective Pt alert, sitting in recliner. Family present in room. No c/o pain. OT/PT co-treat([id number]), skills of 2 clinicians required for family training to educate family on safe transfers, bed mobility and pt's ability to complete tasks by self with SBA to independent. PT focusing on transfers, ambulation and mobility while OT focusing on ADLs, functional mobility and B UE placement during mobility tasks. Mental Status/Objective Patient Orientation: Person, Confused, Time, Situation Attachments: IV ADL-Treatment Therapy Code Descriptions/Definitions Functional [place] Measure: 0=Not Assessed/NA 4=Minimal Assistance 1=Total Assistance 5=Supervision or Setup 2=Maximal Assistance 6=Modified [place] 3=Moderate Assistance 7=Complete IndependenceSCALE: Activities may be completed with or without assistive devices. 3-Ggerobjddq-edaiorx completes the activity by him/herself with no assistance from a helper. 5-Set-up or Clean-up Assistance-helper sets up or cleans up; patient completes activity. [place] assists only prior to or following the activity. 4-Supervision or Touching Assistance-helper provides verbal cues and/or touching/steadying and/or contact guard assistance as patient completes activity. Assistance may be provided throughout the activity or intermittently. 3-Partial/Moderate Assistance-helper does LESS THAN HALF the effort. [place] lifts, holds or supports trunk or limbs, but provides less than half the effort. 2-Substantial/Maximal Assistance-helper does MORE THAN HALF the effort. [place] lifts or holds trunk or limbs and provides more than half the effort. 4-Bmxrtzegg-mizayt does ALL the effort. Patient does none of the effort to complete the activity. Or, the assistance of 2 or more helpers is required for the patient to complete the activity. If activity was not attempted, code reason: 7-Patient Refused. 9-Not Applicable-not attempted and the patient did not perform the activity before the current illness, exacerbation or injury. 10-Not Attempted due to Environmental Limitations-(lack of equipment, weather restraints, etc.). 88-Not Attempted due to Medical Conditions or Safety Concerns. Toileting Hygiene (QC): 6 (Independent using FWW and BSC to elevate toilet.) Toilet Transfer (QC): 6 (Using FWW and BSC) Other Treatment Discussed pt's home environment/bathroom situation, family not sure if FWW would fit in bathroom. PRICE requested family to try it with FWW at home to see if modifications need to be made. See PT notes for all other mobility. After session, pt left in care of PT. All needs met. OT Short Term Goals Short Term Goals Time Frame: December 04, 2022 Upper body dressin Lower body dressin Putting on/taking off footwear: 5 OT Chcf Goals Alteration Worker Goals Time Frame: December 11, 2022 Acute change in mental status: 0 Inattention: 0 Disorganized thinkin Altered level of consciousness: 0 Eating (QC): 6 Oral Hygiene (QC): 6 Toileting Hygiene (QC): 6 Shower/Bathe Self (QC): 6 Upper Body Dressing (QC): 6 Lower Body Dressing (QC): 6 On/Off Footwear (QC): 6 Additional Goals: 1-Demonstrate ADL Tasks, 2-Verbalize Understanding, 3- ImproveStrength/Luzma 1=Demonstrate adherence to instructed precautions during ADL tasks. 2=Patient will verbalize/demonstrate understanding of assistive devices/modifications for ADL. 3=Patient will improve strength/tolerance for activity to enable patient to perform ADL's. OT Education/Plan Problem List/Assessment Assessment: Decreased Activ Tolerance, Decreased UE Strength, Impaired Cognition, Impaired Self-Care Skills Discharge Recommendations Plan/Recommendations: Continue POC Treatment Plan/Plan of Care Patient would benefit from OT for education, treatment and training to promote independence in ADL's, mobility, safety and/or upper extremity function for ADL's. Plan of Care: ADL Retraining, Functional Mobility, Group Exercise/Act as Ind, U E Funct Exercise/Act Treatment Duration: December 11, 2022 Frequency: At least 5 of 7 days/Wk (IRF) Estimated Hrs Per Day: 1.5 hours per day Agreement: Yes Rehab Potential: Guarded (Baseline Function.) Time Start Time: 09:45 Stop Time: 10:15 DATE: December 01, 2022 Total Time Billed (hr/min): 30 Billed Treatment Time 1 visit-FA 2 (30 min) co-treat with PT 30 min SHAMAR QUINN December 01, 2022 10:31
--- NOTE | 2022-12-01 10:31 | Speech Therapy Daily Note ---
Speech Daily Progress Note Subjective Date Seen by Provider: December 01, 2022 Time Seen by Provider: 09:00 The patient was seated upright in her recliner, awake and alert, upon entrance to her room by the clinician. The patient greeted the clinician appropriately and was agreeable to participation in the cognitive linguistic treatment session. The patient has two family members present, both members remain in the room for the duration of skilled treatment. Objective - Orientation: The patient was able to locate orientation information on the in room white as board as practiced throughout the prior session. Regardless of the information being present, the patient stated she was unable to recall the day of the week and stated the year was "2012." Accurate orientation information was provided and located on the board for the patient. - The clinician and patient (including family members) discussed barriers or concerns to discharge. The patient stated she could not identify any and was "ready to go!' The clinician discussed safety procedures for standing and sitting from a chair, as well as, use of her walker. The patient stated she is aware she has exercises provided by PT and OT to practice. - The clinician practice internal memory strategies of visualization and association on this date. Following a five minute delay, the patient was able to recall three of three associated words with moderate verbal cueing provided by the clinician. Assessment Assessment Current Status: Fair Progress Treatment Plan Continue Plan of Care Speech Short Term Goals Short Term Goals Short Term Goals 1. The patient will recall and display functional memory strategies with 80% accuracy, independently. Time Frame-ST Days. Speech [facility] Goals Lorry Weigher Goals 1. The patient will display improved cognitive linguistic skills for safe discharge to the least restrictive environment. Time Frame: 10 to 14 Days. Speech-Plan Treatment Plan Speech Therapy Treatment Plan: Continue Plan of Care Treatment Duration: December 11, 2022 Frequency: Modified Program (IRF) (Three to Five Times per Week.) Estimated Hrs Per Day: .5 hour per day Rehab Potential: Guarded (Baseline Function.) Pt/Family Agrees to Plan: Yes Safety Risks/Education Teaching Recipient: Patient, Family, Significant Other Teaching Methods: Discussion Response to Teaching: Reinforcement Needed Education Topics Provided: Internal and External Memory Strategies Time Speech Therapy Time In: 09:00 Speech Therapy Time Out: 09:30 DATE: December 01, 2022 Total Billed Time: 30 Billed Treatment Time 1[address] December 01, 2022 10:31
--- NOTE | 2022-12-01 12:15 | Progress Note ---
Standard Progress Note Progress Notes/Assess & Plan Date Seen by a Provider: December 01, 2022 Time Seen by a Provider: 12:01 Progress/Assessment & Plan no complaints Vital Signs Date Time Temp Pulse Resp B/P (MAP) Pulse Ox O2 Delivery O2 Flow Rate FiO2 12/01/22 09:00 Room Air 12/01/22 08:16 36.7 81 20 129/58 (81) 96 Room Air 11/30/22 20:46 36.7 89 20 136/79 (98) 97 Room Air 11/30/22 20:10 97 Room Air I & O 12/01/22 06:59 Intake Total 950 ml Balance 950 ml BLE neg Jeff's no calf tenderness s/p Rhip Im carlos PT/OT DC afsaneh tomorrow JUAN RAMOS MD December 01, 2022 12:15
--- NOTE | 2022-12-01 12:41 | Physical Therapy Daily Note ---
PT Daily Note-Current Subjective Pt in room sitting in recliner upon arrival. pt willing for therapy. pt reports no pain at this time. OT/PT co-treat([id number]), skills of 2 clinicians required for family training to educate family on safe transfers, bed mobility and pt's ability to complete tasks by self with SBA to independent. PT focusing on tra nsfers, ambulation and mobility while OT focusing on ADLs, functional mobility and B UE placement during mobility tasks. Pain Section J - Health Conditions 1. Rarely or not at all 2. Occasionally 3. Frequently 4. Almost constantly 8. Unable to answer Pain Effect on Sleep: 4 Pain Interference with Therapy: 4 Pain Interference w/Day-to-Day: 4 Mental Status Patient Orientation: Person, Place Transfers SCALE: Activities may be completed with or without assistive devices. 6-Aucvzzexfp-intcfsg completes the activity by him/herself with no assistance from a helper. 5-Set-up or Clean-up Assistance-helper sets up or cleans up; patient completes activity. [place] assists only prior to or following the activity. 4-Supervision or Touching Assistance-helper provides verbal cues and/or touching/steadying and/or contact guard assistance as patient completes activity . Assistance may be provided throughout the activity or intermittently. 3-Partial/Moderate Assistance-helper does LESS THAN HALF the effort. [place] lifts, holds or supports trunk or limbs, but provides less than half the effort. 2-Substantial/Maximal Assistance-helper does MORE THAN HALF the effort. [place] lifts or holds trunk or limbs and provides more than half the effort. 0-Zeejfjnfe-gbfmfn does ALL the effort. Patient does none of the effort to complete the activity. Or, the assistance of 2 or more helpers is required for the patient to complete the activity. If activity was not attempted, code reason: 7-Patient Refused. 9-Not Applicable-not attempted and the patient did not perform the activity before the current illness, exacerbation or injury. 10-Not Attempted due to Environmental Limitations-(lack of equipment, weather restraints, etc.). 88-Not Attempted due to Medical Conditions or Safety Concerns. Weight Bearing Right Lower Extremity: Right Partial Weight Bearing (PWB R LE 50%) Left Lower Extremity: Left Full Weight Bearing Pt edu on 50% PWB to the R LE with scale. Pt is able to abide by 50% PWB Exercises Seated Therapy Exercises: Ankle pumps, Sit to stand, Long arc quads, Chair press-ups, Hip flexion, Kicking activity, Hamstring Curls, Glut set Treatments Family training with and granddaughter for bed mobility, curb step and ambulation with SBA for VC for safety and sequencing to prevent falls and increase independence pt was able to preform sitting ther-ex in all planes of motion available with BLE with red Thera band and 1 lb ankle weights for added resistance and mm control. pt working on dynamic standing balance this day with SBA and pt is able to move BUE outside COG while maintaining balance with BLE. . PT Industrial Waste Inspector Goals Industrial Waste Inspector Goals PT Industrial Waste Inspector Goals Time Frame: December 07, 2022 Roll Left & Right (QC): 6 (Pt will complete bed mobility and functional transfers with Mod I. ) Sit to Lying (QC): 6 (Pt will complete bed mobility and functional transfers with Mod I. ) Lying-Sitting on Side/Bed(QC): 6 (Pt will complete bed mobility and functional transfers with Mod I. ) Sit to Stand (QC): 6 (Pt will complete bed mobility and functional transfers with Mod I. ) Chair/Uop-ck-Rmumu Xfer(QC): 6 (Pt will complete bed mobility and functional transfers with Mod I. ) Toilet Transfer (QC): 6 (Pt will complete bed mobility and functional transfers with Mod I. ) Car Transfer (QC): 5 Does the Patient Walk: Yes Walk 10 feet (QC): 6 (Pt will ambulate 350ft with the FWW and Mod I, in order to show progression towards PLOF. ) Walk 50ft with 2 Turns (QC): 6 (Pt will ambulate 350ft with the FWW and Mod I, in order to show progression towards PLOF. ) Walk 150 ft (QC): 6 (Pt will ambulate 350ft with the FWW and Mod I, in order to show progression towards PLOF. ) Walking 10ft on Uneven Surface: 6 (Pt will ambulate 350ft with the FWW and Mod I, in order to show progression towards PLOF. ) 1 Step (curb) (QC): 6 (Pt will be Mod I with steps ) 4 Steps (QC): 6 (Pt will be Mod I with steps ) 12 Steps (QC): 6 (Pt will be Mod I with steps ) Picking up an Object (QC): 6 Does the Pt use WC or Scooter?: Yes Wheel 50 feet with 2 turns (QC: 6 (Pt will be Mod I with w/c mobility. ) Type: Manual Wheel 150 feet: 6 (Pt will be Mod I with w/c mobility. ) Type: Manual PT Plan Treatment/Plan Treatment Plan: Continue Plan of Care Treatment Plan: Bed Mobility, Concurrent Therapy, Education, Functional Activity Luzma, Functional Strength, Group Therapy, Gait, Safety, Therapeutic E xercise, Transfers Treatment Duration: November 30, 2022 Frequency: At least 5 of 7 days/Wk (IRF) Estimated Hrs Per Day: 1.5 hours per day Patient and/or Family Agrees t: Yes Time Time In: 0945 Time Out: 1100 DATE: December 01, 2022 Total Billed Treatment Time: 75 Total Billed Treatment 1 FA x 2 Co -treat 09:45-10:15 GT x 2 individual 10:15-11:00 EX Myriam Amaya PTA December 01, 2022 12:40
[2022-12-01] MEDS: RIVAROXABAN 20 MG TABLET (XARELTO) PO SCH (17:29)
[2022-12-01] MEDS: MONTELUKAST 10 MG (SINGULAIR) TAB PO SCH (19:56)
[2022-12-01] MEDS: traZODone 150 MG (DESYREL) TABLET PO SCH (19:56)
[2022-12-01 20:12] VITALS: BP 137/63
--- NOTE | 2022-12-02 05:19 | PM&R Progress Note ---
Subjective HPI/CC On Admission Date Seen by Provider: December 02, 2022 Time Seen by Provider: 12:00 Subjective/Events-last exam 12/02/2022: Doing well DC tomorrow No falls Pain controlled 12/01/2022: No major issues Ambulating well DC No pain 11/30/2022: No major issues Vit B12 and iron is helping her No pain reported Slept well last night 11/29/2022: No major events BM regimen maintained No falls Pain controlled 11/28/2022: No major events No pain reported Doing well at bedside Vit B12 def discussed 11/27/2022: No major issues Miconazole powder for under folds will be ordered No pain until she ambulates Labs reviewed 11/26/2022: Doing very well Pain controlled No pain as long as she doesn't move No falls Review of Systems General: Fatigue, Malaise Musculoskeletal: leg pain Objective Exam Vital Signs Vital Signs Date Time Temp Pulse Resp B/P (MAP) Pulse Ox O2 Delivery O2 Flow Rate FiO2 12/02/22 09:10 Room Air 12/02/22 08:27 36.5 72 18 136/73 (94) 99 Capillary Refill : General Appearance: No Apparent Distress, WD/WN, Chronically ill HEENT: PERRL/EOMI, Normal ENT Inspection, Pharynx Normal Neck: Full Range of Motion, Normal Inspection, Non Tender, Supple, Carotid Bruit Respiratory: Chest Non Tender, Lungs Clear, Normal Breath Sounds, No Accessory Muscle Use, No Respiratory Distress Cardiovascular: No Edema, No Gallop, No JVD, No Murmur, Normal Peripheral Pulses, Irregularly Irregular Gastrointestinal: Normal Bowel Sounds, No Organomegaly, No Pulsatile Mass, Non Tender, Soft Back: Normal Inspection, No CVA Tenderness, No Vertebral Tenderness Extremity: Normal Capillary Refill, Normal Inspection, Normal Range of Motion (except right leg), Non Tender, No Calf Tenderness, No Pedal Edema Neurologic/Psychiatric: Alert, Oriented x3, No Motor/Sensory Deficits, repair service dispatcher II- XII Norm as Tested, Abnormal Gait, Depressed Affect, Motor Weakness Skin: Normal Color, Warm/Dry Lymphatic: No Adenopathy Results/Procedures Lab Patient resulted labs reviewed. FIM Transfers Therapy Code Descriptions/Definitions Functional [place] Measure: 0=Not Assessed/NA 4=Minimal Assistance 1=Total Assistance 5=Supervision or Setup 2=Maximal Assistance 6=Modified [place] 3=Moderate Assistance 7=Complete IndependenceSCALE: Activities may be completed with or without assistive devices. 2-Qsuxbawqft-lbzcatq completes the activity by him/herself with no assistance from a helper. 5-Set-up or Clean-up Assistance-helper sets up or cleans up; patient completes activity. [place] assists only prior to or following the activity. 4-Supervision or Touching Assistance-helper provides verbal cues and/or touching/steadying and/or contact guard assistance as patient completes activity. Assistance may be provided throughout the activity or intermittently. 3-Partial/Moderate Assistance-helper does LESS THAN HALF the effort. [place] lifts, holds or supports trunk or limbs, but provides less than half the effort. 2-Substantial/Maximal Assistance-helper does MORE THAN HALF the effort. [place] lifts or holds trunk or limbs and provides more than half the effort. 0-Rjxifyrab-moyfpa does ALL the effort. Patient does none of the effort to complete the activity. Or, the assistance of 2 or more helpers is required for the patient to complete the activity. If activity was not attempted, code reason: 7-Patient Refused. 9-Not Applicable-not attempted and the patient did not perform the activity before the current illness, exacerbation or injury. 10-Not Attempted due to Environmental Limitations-(lack of equipment, weather restraints, etc.). 88-Not Attempted due to Medical Conditions or Safety Concerns. Roll Left to Right (QC): 3 (Min/Mod A for R LE ) Sit to Lying (QC): 3 (Min/Mod A for R LE ) Sit to Stand (QC): 4 Chair/Kvj-gl-Zfzfr Xfer(QC): 4 Car Transfer (QC): 3 (Min A for R LE ) Gait Training Does the Patient Walk?: Yes Walk 10 feet (QC): 4 Walk 50 ft with 2 Turns(QC): 4 Walk 150 ft (QC): 4 Walking 10ft/uneven surface-QC: 4 Gait Persons Needed: 1 Gait Assistive Device: FWW Wheelchair Training Does the Pt Use a Wheelchair?: Yes Distance: 150ft Wheel 50 ft with 2 turns (QC): 4 Wheel 150 ft (QC): 4 Type of Wheelchair: Manual Stair Training 1 Step (curb) (QC): 4 4 Steps (QC): 4 12 Steps (QC): 88 Balance Picking up an Object (QC): 4 (with lamp shade assembler ) ADL-Treatment Eating (QC): 6 Oral Hygiene (QC): 6 Shower/Bathe Self (QC): 4 Upper Body Dressing (QC): 5 Lower Body Dressing (QC): 4 On/Off Footwear (QC): 4 Toileting Hygiene (QC): 6 Toilet Transfer (QC): 6 Assessment/Plan Assessment and Plan Assess & Plan/Chief Complaint Assessment: Right femur fracture s/p repair Post op acute blood loss anemia s/p 1 unit of transfusion Syncope s/p loop recorder Post op constipation-resolved Hypothyroidism AF OAC Dementia? Iron def Vit B12 def Plan: Aggressive PT OT Monitor labs Monitor creat 11/26/2022: Continue pain management Supplement B12 and Iron 11/27/2022: Supplement B12 and iron Pain control 11/28/2022: Improved status 11/29/2022: Monitor closely 11/30/2022: Monitor closely B12 and iron 12/01/2022: No pain reported 12/02/2022: Monitor closely DC Natalie (1) Closed intertrochanteric fracture of right hip Status: Acute (2) Hypertension Status: Chronic (3) Hyperlipidemia Status: Chronic (4) Hypothyroidism Status: Chronic (5) Debility Status: Acute (6) Anemia Status: Acute (7) Anticoagulated Status: Acute (8) Fall on same level Status: Acute (9) Syncope Status: Acute (10) HX OVARIAN CANCER EXTENDING INTO COLON FRANDY TINOCO DO December 02, 2022 05:19
[2022-12-02] MEDS: CYANOCOBALAMIN 1,000 MCG (VITAMIN B-12) TABLET PO SCH (06:21)
[2022-12-02] MEDS: LEVOTHYROXINE 125 MCG (LEVOTHROID) TABLET PO SCH (06:21)
[2022-12-02] MEDS: CATHETER FLUSH 10 ML SYR IVP SCH ×3 (06:21→20:40)
[2022-12-02] MEDS: PANTOPRAZOLE 40 MG (PROTONIX) TAB PO SCH (07:55)
[2022-12-02] MEDS: CELECOXIB 100 MG (CeleBREX) CAP PO SCH ×2 (07:55→20:39)
[2022-12-02] MEDS: IRON SUCROSE 200 MG/10 ML (VENOFER) VIAL IV SCH (07:55)
[2022-12-02] MEDS: MIDODRINE 10 MG (PROAMATINE) TAB PO SCH ×3 (07:55→20:40)
[2022-12-02] MEDS: meTOprolol TARTRATE 50 MG (LOPRESSOR) TAB PO SCH ×2 (07:55→20:39)
[2022-12-02] MEDS: MICONAZOLE 2% POWDER (DESENEX AF) 90 GM TOP SCH ×2 (07:56→20:40)
[2022-12-02] MEDS: FLUTICASONE NASAL SPRAY (FLONASE) 16 GM BTL NS SCH (07:59)
--- NOTE | 2022-12-02 08:12 | Occupational Ther Daily Note ---
OT Current Status-Daily Note Subjective Pt alert, sitting in recliner. Pt anxious and sad about not seeing though is excited about going home tomorrow. Pt continues to demonstrate memory and problem solving deficits, repetition and verbal cues to orient work well. Mental Status/Objective Patient Orientation: Person, Place, Time, Situation Attachments: IV ADL-Treatment Pt independent with eating. Independent with oral care standing at sink. Independent with toileting using FWW, grabbars and BSC to elevate toilet. Therapy Code Descriptions/Definitions Functional [place] Measure: 0=Not Assessed/NA 4=Minimal Assistance 1=Total Assistance 5=Supervision or Setup 2=Maximal Assistance 6=Modified [place] 3=Moderate Assistance 7=Complete IndependenceSCALE: Activities may be completed with or without assistive devices. 9-Gsmirnpqbj-qbnjerw completes the activity by him/herself with no assistance from a helper. 5-Set-up or Clean-up Assistance-helper sets up or cleans up; patient completes activity. [place] assists only prior to or following the activity. 4-Supervision or Touching Assistance-helper provides verbal cues and/or touching/steadying and/or contact guard assistance as patient completes activity. Assistance may be provided throughout the activity or intermittently. 3-Partial/Moderate Assistance-helper does LESS THAN HALF the effort. [place] lifts, holds or supports trunk or limbs, but provides less than half the effort. 2-Substantial/Maximal Assistance-helper does MORE THAN HALF the effort. [place] lifts or holds trunk or limbs and provides more than half the effort. 3-Qkmxcunli-ocmkhm does ALL the effort. Patient does none of the effort to complete the activity. Or, the assistance of 2 or more helpers is required for the patient to complete the activity. If activity was not attempted, code reason: 7-Patient Refused. 9-Not Applicable-not attempted and the patient did not perform the activity before the current illness, exacerbation or injury. 10-Not Attempted due to Environmental Limitations-(lack of equipment, weather restraints, etc.). 88-Not Attempted due to Medical Conditions or Safety Concerns. Eating (QC): 6 Oral Hygiene (QC): 6 Toileting Hygiene (QC): 6 Toilet Transfer (QC): 6 Other Treatment Pt completed fine motor strengthening tasks for daily functional tasks, resistive clothespins and resistive pegs with B hands completed 25x's. After session, pt left in care of PT. All needs met. BIMS CAM BIMS Expression of Ideas and Wants: Without Difficulty Understanding Verbal Content: Understands Brief Interview/Mental Status: Yes IRF LAURITA BIMS: IRF LAURITA BIMS Response (Comments) Value Repitition of Three Words Three 3 Recalls Socks Yes, After Cueing (Wear) 1 Recalls Blue Yes, After Cueing (Color) 1 Recalls Bed Yes, After Cueing 1 Year Missed by 5 Yrs/No Answer 0 Month Accurate Within 5 Days 2 Day Correct 1 Total 9 Patient Normally Able to Recal: That he/she in a hsp Should Staff Asses. Mental St.: Yes CAM Mental Status Change/Baseline: 0 Inattention: 0 Disorganized thinkin Altered level of consciousness: 0 OT Short Term Goals Short Term Goals Time Frame: December 04, 2022 Upper body dressin Lower body dressin Putting on/taking off footwear: 5 OT Fire Official Goals Longterm Goals Time Frame: December 11, 2022 Acute change in mental status: 0 Inattention: 0 Disorganized thinkin Altered level of consciousness: 0 Eating (QC): 6 (met) Oral Hygiene (QC): 6 (met) Toileting Hygiene (QC): 6 (met) Shower/Bathe Self (QC): 6 Upper Body Dressing (QC): 6 Lower Body Dressing (QC): 6 On/Off Footwear (QC): 6 Additional Goals: 1-Demonstrate ADL Tasks, 2-Verbalize Understanding, 3- ImproveStrength/Luzma 1=Demonstrate adherence to instructed precautions during ADL tasks. 2=Patient will verbalize/demonstrate understanding of assistive devices/modifications for ADL. 3=Patient will improve strength/tolerance for activity to enable patient to perform ADL's. OT Education/Plan Problem List/Assessment Assessment: Decreased Safety Aware, Impaired Cognition, Impaired Self-Care Skills Discharge Recommendations Plan/Recommendations: Continue POC Treatment Plan/Plan of Care Patient would benefit from OT for education, treatment and training to promote independence in ADL's, mobility, safety and/or upper extremity function for ADL's. Plan of Care: ADL Retraining, Functional Mobility, Group Exercise/Act as Ind, UE Funct Exercise/Act Treatment Duration: December 11, 2022 Frequency: At least 5 of 7 days/Wk (IRF) Estimated Hrs Per Day: 1.5 hours per day Agreement: Yes Rehab Potential: Guarded (Baseline Function.) Time Start Time: 07:25 Stop Time: 08:00 DATE: December 02, 2022 Total Time Billed (hr/min): 35 Billed Treatment Time 1 visit-ADL 2 (35 min) SHAMAR QUINN December 02, 2022 08:12
[2022-12-02] MEDS: DOCUSATE SODIUM 100 MG (COLACE) CAP PO SCH ×2 (08:15→20:39)
[2022-12-02] MEDS: SENNA W/DOCUSATE (SENOKOT S) TABLET PO SCH ×2 (08:15→20:40)
[2022-12-02] MEDS: polyethylene glycoL POWDER 17 GM (MIRALAX) PACK PO SCH ×2 (08:15→20:40)
[2022-12-02] MEDS: HYDROcodone/APAP 5 MG/325 MG (LORTAB) TAB PO PRN (08:25)
[2022-12-02 08:27] VITALS: BP 136/73
--- NOTE | 2022-12-02 08:48 | Cardiology Progress Note ---
Subjective Date Seen by Provider: December 02, 2022 Time Seen by Provider: 08:46 Subjective/Events-last exam Patient is sitting up in bed, no new complaints. Objective-Cardiology Exam Last Set of Vital Signs Vital Signs 12/02/22 12/02/22 08:27 09:10 Temp 36.5 Pulse 72 Resp 18 B/P (MAP) 136/73 (94) Pulse Ox 99 O2 Delivery Room Air I&O Intake and Output 12/02/22 00:00 Intake Total 1100 ml Balance 1100 ml Intake Oral 1100 ml # Voids 10 # Bowel Movements 2 General: Alert, Oriented X3, Cooperative HEENT: Atraumatic, PERRLA Neck: Supple, No JVD, No Thyromegaly Lungs: Clear to Auscultation, Normal Air Movement Heart: Regular Rate, Normal S1, Normal S2, No Murmurs Abdomen: Normal Bowel Sounds, Soft, No Tenderness, No Hepatosplenomegaly, No Masses Extremities: No Clubbing, No Cyanosis, No Edema, Normal Pulses, No Tenderness/Swelling Skin: No Rashes, No Breakdown, No Significant Lesion Neuro: Normal Gait, Normal Speech, Strength at 5/5 X4 Ext, Normal Tone, Sensation Intact Psych/Mental Status: Mental Status NL, Mood NL A/P-Cardiology Admission Diagnosis Syncope Right hip rx AFib HTN Assessment/Plan Syncope, unknown etiology, most probably labile hypertension. Resulted in hip fracture Patient is being monitored on telemetry New loop monitor was implanted on November 23, 2022. Moderate hypertension at this time, will avoid aggressive blood pressure control Still having dizzy spells and lightheaded Midodrine added and amlodipine discontinued. Will continue to monitor. Hypertension, will accept elevated blood pressure to minimize the chances of syncope. Right-sided hip fracture, hip surgery on November 18, 2022. Receiving physical therapy. Chest pain, nonspecific etiology, has been having chronic chest pain on and off. Feeling better. No further episodes of chest pain were reported. Continue to monitor Permanent atrial fibrillation with variable response, had an episode of aberrant conduction, seen by Dr. Emerson, had a loop recorder implanted in November 2018, having multiple episodes of atrial fibrillation and pauses. Continue to monitor [id number] score is 3, yearly risk of stroke without oral anticoagulation is 3.2 percent. Patient is maintained on Xarelto. Episodes of dizziness with exertion, reporting worsening symptoms recently, has history of atrial fibrillation and questionable sinus node dysfunction Continue to monitor Coronary artery disease, cardiac catheterization was done in August 2015 showing mild ectasia in the proximal LAD with slow flow in the proximal LAD at otherwise small vessel disease no significant obstructive disease. Had another cardiac catheterization done in March 2019 after having an abnormal stress test showing coronary ectasia, no change compared to 2015. Currently EKG did not show any acute abnormality on November 17, 2022. Continue to monitor 2D Echo done on November 18, 2022 with ejection fraction 60 to 65%, PA pressure 40 to 45 mmHg, mild mitral regurgitation moderate tricuspid regurgitation. Mild bilateral nonobstructive carotid artery stenosis, continue to monitor COPD, obstructive sleep apnea, seen by Dr. Boston in the past. Managed by primary care physician Hyperlipidemia, continue to monitor Ovarian cancer, had abdominal extensive surgery, recurrent malignancy, Moderately differentiated carcinoma although very status post total abdominal hysterectomy/BSO and partial colectomy in August 2020, CEA 125 is elevated, CEA normal, receiving carbo plus Taxol. Reporting repeat scans showing improvement. Hypothyroidism managed by primary care physician Prediabetes, patient was educated on diet and weight loss. Obesity, BMI 33, we discussed weight loss and diet Supervisory-Addendum Brief Supervisory Addendum Participated in pt care: history, MDM, physical Personally performed: exam, history, MDM Care discussed with: ROSARIO Results interpretation: Verified all documentation Notes: Patient was seen and evaluated with Peri, examination performed, management plan was discussed, agree with the current scribed note, I made few changes to the note using Italic font Patient was seen at bedside, sitting comfortably, feeling better Reporting improvement in her dizziness Blood pressure is better We will continue monitoring, continue current medications. Continue with PT PERI BERG December 02, 2022 08:48 ANSON POMPA MD December 02, 2022 15:14
--- NOTE | 2022-12-02 10:51 | Speech Therapy Daily Note ---
Speech Daily Progress Note Subjective Date Seen by Provider: December 02, 2022 Time Seen by Provider: 09:00 The patient was seated upright in the recliner, awake and alert, upon entrance to the patient's room by the clinician. The patient greeted the clinician appropriately and was agreeable to participation in the cognitive linguistic treatment session. The patient's spouse is present for the final portions of the treatment. Objective The patient completed the SLUMS on this date, to compare her results to her admission (the speech pathology evaluation on 11/27). On this date, the patient displayed a result of +18/30, correlating to a score of "dementia" per SLUMS scoring protocol. The patient continued to display difficulty in the areas of memory and problem solving. The patient's results on 11/27/22 was +15/30. Unfortunately, the patient's memory and problem solving skills remained declined which is most likely secondary to the patient's known diagnosis of dementia. The clinician was able to complete two skilled treatment sessions with the patient. In combination to the decreased skilled treatment provided and the patient's baseline, known cognitive status, limited progression was expected by this clinician. Assessment Assessment Current Status: Fair Progress Treatment Plan Continue Plan of Care Speech Short Term Goals Short Term Goals Short Term Goals 1. The patient will recall and display functional memory strategies with 80% accuracy, independently. Time Frame-ST Days. Speech Nuclear Engineer Goals Detention Goals 1. The patient will display improved cognitive linguistic skills for safe discharge to the least restrictive environment. Time Frame: 10 to 14 Days. Speech-Plan Treatment Plan Speech Therapy Treatment Plan: Continue Plan of Care Treatment Duration: December 11, 2022 Frequency: Modified Program (IRF) (Three to Five Times per Week.) Estimated Hrs Per Day: .5 hour per day Rehab Potential: Guarded (Baseline Function.) Pt/Family Agrees to Plan: Yes Safety Risks/Education Teaching Recipient: Patient Teaching Methods: Discussion Response to Teaching: Reinforcement Needed Education Topics Provided: Results, Recommendations, Plan of Care, Home Exercises Time Speech Therapy Time In: 09:00 Speech Therapy Time Out: 09:30 DATE: December 02, 2022 Total Billed Time: 30 Billed Treatment Time TERRA Torres ELIZABETH December 02, 2022 10:51
--- NOTE | 2022-12-02 10:56 | Therapy Team Discharge Summary ---
Therapy Discharge Summary Discharge Recommendations Date of Discharge Physical Therapy Roll Left to Right (QC): 3 (Min/Mod A for R LE ) Sit to Lying (QC): 3 (Min/Mod A for R LE ) Lying to Sitting/Side of Bed(Q: 3 (Min/Mod A for R LE ) Sit to Stand (QC): 4 Chair/Qsq-bn-Ctnva Xfer(QC): 4 Toilet Transfer (QC): 5 Car Transfer (QC): 3 (Min A for R LE ) Does the Patient Walk: Yes Mode of Locomotion: Wheelchair Anticipated Mode of Locomotion: Walk Walk 10 feet (QC): 4 Walk 50 ft with 2 Turns(QC): 4 Walk 150 ft (QC): 4 Walking 10ft on uneven surface: 4 Distance: 150ft Gait Assistive Device: FWW Does the Pt Use a Wheelchair: Yes Wheelchair Distance: 150ft Wheel 50 ft with 2 turns (QC): 4 Wheel 150 ft (QC): 4 Type of Wheelchair: Manual 1 Step (curb) (QC): 4 4 Steps (QC): 4 12 Steps (QC): 88 Balance Sitting Static: Good Balance Sitting Dynamic: Good Balance-Standing Static: Good Picking up an Object (QC): 4 (with mortgage loan processing clerk ) Occupational Therapy Decreased Safety Aware, Impaired Cognition, Impaired Self-Care Skills Eating (QC): 6 Oral Hygiene (QC): 6 Shower/Bathe Self (QC): 4 Upper Body Dressing (QC): 5 Lower Body Dressing (QC): 4 On/Off Footwear (QC): 4 Toileting Hygiene (QC): 6 Speech-Language Pathology The patient's memory and problem solving skills remained mild to moderately impaired at the time of discharge which is most likely secondary to the patient's known diagnosis of dementia. The clinician was able to complete two skilled treatment sessions with the patient during her acute rehabilitation stay. In combination to the decreased skilled treatment provided/available and the patient's known cognitive baseline, limited progression was expected by this clinician. PT Longterm Goals Finger Lift Operator Goals PT Finger Lift Operator Goals Time Frame: December 07, 2022 Roll Left to Right (QC): 6 (Pt will complete bed mobility and functional transfers with Mod I. ) Sit to Lying (QC): 6 (Pt will complete bed mobility and functional transfers with Mod I. ) Lying-Sitting on Side/Bed(QC): 6 (Pt will complete bed mobility and functional transfers with Mod I. ) Sit to Stand (QC): 6 (Pt will complete bed mobility and functional transfers with Mod I. ) Chair/Ksd-qa-Qdbdl Xfer(QC): 6 (Pt will complete bed mobility and functional transfers with Mod I. ) Toilet/Commode Transfer (QC): 6 (Pt will complete bed mobility and functional transfers with Mod I. ) Car Transfer (QC): 5 Does the Patient Walk: Yes Walk 10 feet (QC): 6 (Pt will ambulate 350ft with the FWW and Mod I, in order to show progression towards PLOF. ) Walk 10ft-Uneven Surface(QC): 6 (Pt will ambulate 350ft with the FWW and Mod I, in order to show progression towards PLOF. ) Walk 50ft with 2 Turns (QC): 6 (Pt will ambulate 350ft with the FWW and Mod I, in order to show progression towards PLOF. ) Walk 150 ft (QC): 6 (Pt will ambulate 350ft with the FWW and Mod I, in order to show progression towards PLOF. ) Does the Pt use WC or Scooter?: Yes Wheel 50 feet with 2 turns (QC: 6 (Pt will be Mod I with w/c mobility. ) Type: Manual Wheel 150 feet: 6 (Pt will be Mod I with w/c mobility. ) Type: Manual 1 Step (curb) (QC): 6 (Pt will be Mod I with steps ) 4 Steps (QC): 6 (Pt will be Mod I with steps ) 12 Steps (QC): 6 (Pt will be Mod I with steps ) Picking up an Object (QC): 6 OT Longterm Goals Longterm Goals Time Frame: December 11, 2022 Acute change in mental status: 0 Inattention: 0 Disorganized thinkin Altered level of consciousness: 0 Eating (QC): 6 (met) Oral Hygiene (QC): 6 (met) Toileting Hygiene (QC): 6 (met) Shower/Bathe Self (QC): 6 Upper Body Dressing (QC): 6 Lower Body Dressing (QC): 6 On/Off Footwear (QC): 6 Additional Goals: 1-Demonstrate ADL Tasks, 2-Verbalize Understanding, 3-ImproveStrength/Luzma 1=Demonstrate adherence to instructed precautions during ADL tasks. 2=Patient will verbalize/demonstrate understanding of assistive devices/modifications for ADL. 3=Patient will improve strength/tolerance for activity to enable patient to perform ADL's. Speech Longterm Goals Longterm Goals 1. The patient will display improved cognitive linguistic skills for safe discharge to the least restrictive environment. NOT MET Time Frame: 10 to 14 Days. MOHIT MAHARAJ December 02, 2022 10:56
--- NOTE | 2022-12-02 12:34 | Occupational Ther Daily Note ---
OT Current Status-Daily Note Subjective Pt alert, sitting in recliner. Pt's in room. Pt is demonstrating increased memory and problem solving difficulties this date. Verbal cues required to orient pt and assist with problem solving during functional tasks. During shower, pt touched R upper leg and stated that she did not know why it is so tender. PRICE directed conversation to have pt remember that she had fallen and broken R hip, pt then was able to ascertain why her upper leg hurt. Pt requires verbal cues for reminders of wt bearing limitations, pt having difficulty with remembering that she is PWB-50%. Mental Status/Objective Patient Orientation: Person, Place, Time, Situation Attachments: IV, Other-See Comments (loop recorder) ADL-Treatment Pt agrees to shower. Pt completes toileting independently using FWW and BSC to elevate toilet. Pt began to ambulate out of bathroom instead of transferring into shower, had forgotten what was next task to be completed. Pt used document specialist to doff socks, donned L sock by self then assist to don R sock. Set up and supervision to complete shower, verbal cues to wash hair and to maintain wt bearing precautions by sitting in shower. Set up for UBD. Verbal cues to complete lower body dressing due to pt unable to remember modified dressing techniques to pain and increase independence. After therapy, pt lying in bed with call light/phone in reach. All needs met in room. Therapy Code Descriptions/Definitions Functional [place] Measure: 0=Not Assessed/NA 4=Minimal Assistance 1=Total Assistance 5=Supervision or Setup 2=Maximal Assistance 6=Modified [place] 3=Moderate Assistance 7=Complete IndependenceSCALE: Activities may be completed with or without assistive devices. 5-Zqchpydsmo-jsuhhdi completes the activity by him/herself with no assistance from a helper. 5-Set-up or Clean-up Assistance-helper sets up or cleans up; patient completes activity. [place] assists only prior to or following the activity. 4-Supervision or Touching Assistance-helper provides verbal cues and/or touching/steadying and/or contact guard assistance as patient completes activity. Assistance may be provided throughout the activity or intermittently. 3-Partial/Moderate Assistance-helper does LESS THAN HALF the effort. [place] lifts, holds or supports trunk or limbs, but provides less than half the effort. 2-Substantial/Maximal Assistance-helper does MORE THAN HALF the effort. [place] lifts or holds trunk or limbs and provides more than half the effort. 0-Bolaarrso-lbvblu does ALL the effort. Patient does none of the effort to complete the activity. Or, the assistance of 2 or more helpers is required for the patient to complete the activity. If activity was not attempted, code reason: 7-Patient Refused. 9-Not Applicable-not attempted and the patient did not perform the activity before the current illness, exacerbation or injury. 10-Not Attempted due to Environmental Limitations-(lack of equipment, weather restraints, etc.). 88-Not Attempted due to Medical Conditions or Safety Concerns. Upper Body Dressing (QC): 5 Lower Body Dressing (QC): 4 On/Off Footwear: 3 Toileting Hygiene (QC): 6 Toilet Transfer (QC): 6 OT Short Term Goals Short Term Goals Time Frame: December 04, 2022 Upper body dressin Lower body dressin Putting on/taking off footwear: 5 OT Asbestos Removal Supervisor Goals Asbestos Removal Supervisor Goals Time Frame: December 11, 2022 Acute change in mental status: 0 Inattention: 0 Disorganized thinkin Altered level of consciousness: 0 Eating (QC): 6 (met) Oral Hygiene (QC): 6 (met) Toileting Hygiene (QC): 6 (met) Shower/Bathe Self (QC): 6 (not met) Upper Body Dressing (QC): 6 (not met) Lower Body Dressing (QC): 6 (not met) On/Off Footwear (QC): 6 (not met) Additional Goals: 1-Demonstrate ADL Tasks, 2-Verbalize Understanding, 3- ImproveStrength/Luzma 1=Demonstrate adherence to instructed precautions during ADL tasks. 2=Patient will verbalize/demonstrate understanding of assistive devices/modific ations for ADL. 3=Patient will improve strength/tolerance for activity to enable patient to perform ADL's. OT Education/Plan Problem List/Assessment Assessment: Decreased Activ Tolerance, Decreased Safety Aware, Impaired Cognition, Impaired Self-Care Skills Discharge Recommendations Plan/Recommendations: Continue POC Treatment Plan/Plan of Care Patient would benefit from OT for education, treatment and training to promote independence in ADL's, mobility, safety and/or upper extremity function for ADL's. Plan of Care: ADL Retraining, Functional Mobility, Group Exercise/Act as Ind, UE Funct Exercise/Act Treatment Duration: December 11, 2022 Frequency: At least 5 of 7 days/Wk (IRF) Estimated Hrs Per Day: 1.5 hours per day Agreement: Yes Rehab Potential: Guarded (Baseline Function.) Time Start Time: 09:30 Stop Time: 10:30 DATE: December 02, 2022 Total Time Billed (hr/min): 60 Billed Treatment Time 1 visit-ADL 4 (60 min) SHAMAR QUINN December 02, 2022 12:34
--- NOTE | 2022-12-02 12:44 | Physical Therapy Daily Note ---
PT Daily Note-Current Subjective pt in therapy gym upon arrival. pt willing for therapy. pt reports slight achy feeling in the area of recent surgery. nursing is aware. Pain Section J - Health Conditions 1. Rarely or not at all 2. Occasionally 3. Frequently 4. Almost constantly 8. Unable to answer Pain Effect on Sleep: 4 Pain Interference with Therapy: 4 Pain Interference w/Day-to-Day: 4 Mental Status Patient Orientation: Person, Place, Situation Transfers SCALE: Activities may be completed with or without assistive devices. 3-Urtwsrlmki-mklfmux completes the activity by him/herself with no assistance from a helper. 5-Set-up or Clean-up Assistance-helper sets up or cleans up; patient completes activity. [place] assists only prior to or following the activity. 4-Supervision or Touching Assistance-helper provides verbal cues and/or touching/steadying and/or contact guard assistance as patient completes activity. Assistance may be provided throughout the activity or intermittently. 3-Partial/Moderate Assistance-helper does LESS THAN HALF the effort. [place] lifts, holds or supports trunk or limbs, but provides less than half the effort. 2-Substantial/Maximal Assistance-helper does MORE THAN HALF the effort. [place] lifts or holds trunk or limbs and provides more than half the effort. 5-Mralzsymw-gshahv does ALL the effort. Patient does none of the effort to complete the activity. Or, the assistance of 2 or more helpers is required for the patient to complete the activity. If activity was not attempted, code reason: 7-Patient Refused. 9-Not Applicable-not attempted and the patient did not perform the activity before the current illness, exacerbation or injury. 10-Not Attempted due to Environmental Limitations-(lack of equipment, weather restraints, etc.). 88-Not Attempted due to Medical Conditions or Safety Concerns. Roll Left & Right (QC): 6 Sit to Lying (QC): 6 Lying to Sitting/Side of Bed(Q: 6 Sit to Stand (QC): 5 Chair/Cbk-vo-Abzrj Xfer(QC): 4 Toilet Transfer (QC): 4 Car Transfer (QC): 4 Weight Bearing Right Lower Extremity: Right Partial Weight Bearing (PWB R LE 50%) Left Lower Extremity: Left Full Weight Bearing Pt edu on 50% PWB to the R LE with scale. Pt is able to abide by 50% PWB Gait Training Walk 10 feet (QC): 4 Walk 50 ft with 2 Turns(QC): 4 Walk 150 ft (QC): 4 Walking 10ft/uneven surface-QC: 4 Gait Assistive Device: Walker Standard Wheelchair Training Wheel 50 ft with 2 turns (QC): 4 Stair Training 1 Step (curb) (QC): 4 4 Steps (QC): 4 12 Steps (QC): 4 Balance Picking up an Object (QC): 4 Treatments pt preformed ambulation on uneven surface, and car transfers with CGA and Max - VC for sequencing and safety this day. if pt is directed step by step is able to preform said task. pt presents with no LOB with CGA. Assessment Current Status: Fair Progress PT Web Offset Press Feeder Goals Web Offset Press Feeder Goals PT Web Offset Press Feeder Goals Time Frame: December 07, 2022 Roll Left & Right (QC): 6 (Pt will complete bed mobility and functional transfers with Mod I. ) Sit to Lying (QC): 6 (Pt will complete bed mobility and functional transfers with Mod I. ) Lying-Sitting on Side/Bed(QC): 6 (Pt will complete bed mobility and functional transfers with Mod I. ) Sit to Stand (QC): 6 (Pt will complete bed mobility and functional transfers with Mod I. ) Chair/Wvx-rs-Tbgus Xfer(QC): 6 (Pt will complete bed mobility and functional transfers with Mod I. ) Toilet Transfer (QC): 6 (Pt will complete bed mobility and functional transfers with Mod I. ) Car Transfer (QC): 5 Does the Patient Walk: Yes Walk 10 feet (QC): 6 (Pt will ambulate 350ft with the FWW and Mod I, in order to show progression towards PLOF. ) Walk 50ft with 2 Turns (QC): 6 (Pt will ambulate 350ft with the FWW and Mod I, in order to show progression towards PLOF. ) Walk 150 ft (QC): 6 (Pt will ambulate 350ft with the FWW and Mod I, in order to show progression towards PLOF. ) Walking 10ft on Uneven Surface: 6 (Pt will ambulate 350ft with the FWW and Mod I, in order to show progression towards PLOF. ) 1 Step (curb) (QC): 6 (Pt will be Mod I with steps ) 4 Steps (QC): 6 (Pt will be Mod I with steps ) 12 Steps (QC): 6 (Pt will be Mod I with steps ) Picking up an Object (QC): 6 Does the Pt use WC or Scooter?: Yes Wheel 50 feet with 2 turns (QC: 6 (Pt will be Mod I with w/c mobility. ) Type: Manual Wheel 150 feet: 6 (Pt will be Mod I with w/c mobility. ) Type: Manual PT Plan Treatment/Plan Treatment Plan: Continue Plan of Care Treatment Plan: Bed Mobility, Concurrent Therapy, Education, Functional Activity Luzma, Functional Strength, Group Therapy, Gait, Safety, Therapeutic Exercise, Transfers Treatment Duration: November 30, 2022 Frequency: At least 5 of 7 days/Wk (IRF) Estimated Hrs Per Day: 1.5 hours per day Patient and/or Family Agrees t: Yes Time Time In: 0800 Time Out: 0830 DATE: December 02, 2022 Total Billed Treatment Time: 30 Total Billed Treatment 1 FA x 2 Myriam Amaya CURLING MACHINE OPERATOR December 02, 2022 12:43
--- NOTE | 2022-12-02 12:49 | Physical Therapy Daily Note ---
PT Daily Note-Current Subjective pt in room in bed upon arrival and willing for therapy. pt stated pain in surgical area of 510 and nursing was notified this day. Pain Section J - Health Conditions 1. Rarely or not at all 2. Occasionally 3. Frequently 4. Almost constantly 8. Unable to answer Pain Effect on Sleep: 4 Pain Interference with Therapy: 4 Pain Interference w/Day-to-Day: 4 Mental Status Patient Orientation: Person, Place Transfers SCALE: Activities may be completed with or without assistive devices. 0-Qexavdqpin-odvuhpr completes the activity by him/herself with no assistance from a helper. 5-Set-up or Clean-up Assistance-helper sets up or cleans up; patient completes activity. [place] assists only prior to or following the activity. 4-Supervision or Touching Assistance-helper provides verbal cues and/or touc zelalem/steadying and/or contact guard assistance as patient completes activity. Assistance may be provided throughout the activity or intermittently. 3-Partial/Moderate Assistance-helper does LESS THAN HALF the effort. [place] lifts, holds or supports trunk or limbs, but provides less than half the effort. 2-Substantial/Maximal Assistance-helper does MORE THAN HALF the effort. [place] lifts or holds trunk or limbs and provides more than half the effort. 6-Qgfpzjvae-ynotnz does ALL the effort. Patient does none of the effort to complete the activity. Or, the assistance of 2 or more helpers is required for the patient to complete the activity. If activity was not attempted, code reason: 7-Patient Refused. 9-Not Applicable-not attempted and the patient did not perform the activity before the current illness, exacerbation or injury. 10-Not Attempted due to Environmental Limitations-(lack of equipment, weather restraints, etc.). 88-Not Attempted due to Medical Conditions or Safety Concerns. Weight Bearing Right Lower Extremity: Right Partial Weight Bearing (PWB R LE 50%) Left Lower Extremity: Left Full Weight Bearing Pt edu on 50% PWB to the R LE with scale. Pt is able to abide by 50% PWB Treatments Pt practiced stairs and single curb to be able to get in and out of her home. pt was CGA and MAX VC for sequencing. which foot to ascend and descend with and safety with AD this day. Assessment Current Status: Fair Progress PT Fitter Placer Goals Fitter Placer Goals PT Fpc Goals Time Frame: December 07, 2022 Roll Left & Right (QC): 6 (Pt will complete bed mobility and functional transfers with Mod I. ) Sit to Lying (QC): 6 (Pt will complete bed mobility and functional transfers with Mod I. ) Lying-Sitting on Side/Bed(QC): 6 (Pt will complete bed mobility and functional transfers with Mod I. ) Sit to Stand (QC): 6 (Pt will complete bed mobility and functional transfers with Mod I. ) Chair/Nbz-ir-Vizqk Xfer(QC): 6 (Pt will complete bed mobility and functional transfers with Mod I. ) Toilet Transfer (QC): 6 (Pt will complete bed mobility and functional transfers with Mod I. ) Car Transfer (QC): 5 Does the Patient Walk: Yes Walk 10 feet (QC): 6 (Pt will ambulate 350ft with the FWW and Mod I, in order to show progression towards PLOF. ) Walk 50ft with 2 Turns (QC): 6 (Pt will ambulate 350ft with the FWW and Mod I, in order to show progression towards PLOF. ) Walk 150 ft (QC): 6 (Pt will ambulate 350ft with the FWW and Mod I, in order to show progression towards PLOF. ) Walking 10ft on Uneven Surface: 6 (Pt will ambulate 350ft with the FWW and Mod I, in order to show progression towards PLOF. ) 1 Step (curb) (QC): 6 (Pt will be Mod I with steps ) 4 Steps (QC): 6 (Pt will be Mod I with steps ) 12 Steps (QC): 6 (Pt will be Mod I with steps ) Picking up an Object (QC): 6 Does the Pt use WC or Scooter?: Yes Wheel 50 feet with 2 turns (QC: 6 (Pt will be Mod I with w/c mobility. ) Type: Manual Wheel 150 feet: 6 (Pt will be Mod I with w/c mobility. ) Type: Manual PT Plan Treatment/Plan Treatment Plan: Continue Plan of Care Treatment Plan: Bed Mobility, Concurrent Therapy, Education, Functional Activity Luz[place], Functional Strength, Group Therapy, Gait, Safety, Therapeutic Exercise, Transfers Treatment Duration: November 30, 2022 Frequency: At least 5 of 7 days/Wk (IRF) Estimated Hrs Per Day: 1.5 hours per day Patient and/or Family Agrees t: Yes Time Time In: 1100 Time Out: 1145 DATE: December 02, 2022 Total Billed Treatment Time: 45 Total Billed Treatment 1 GT FA x 2 Myriam Amaya KILN TRANSFER OPERATOR December 02, 2022 12:49
[2022-12-02] MEDS: RIVAROXABAN 20 MG TABLET (XARELTO) PO SCH (16:43)
[2022-12-02 19:48] VITALS: BP 140/75
[2022-12-02] MEDS: ALPRAZolam 0.25 MG (XANAX) TAB PO PRN (20:39)
[2022-12-02] MEDS: traZODone 150 MG (DESYREL) TABLET PO SCH (20:39)
[2022-12-02] MEDS: MONTELUKAST 10 MG (SINGULAIR) TAB PO SCH (20:39)
[2022-12-03] MEDS ORDERED: SENN-271 PO (05:20)
[2022-12-03] MEDS ORDERED: PANT40TA52 PO (05:20)
[2022-12-03] MEDS ORDERED: MICO90PO TOP (05:20)
[2022-12-03] MEDS ORDERED: MIDO10TA PO (05:20)
[2022-12-03] MEDS ORDERED: ONDA4TAB11 PO (05:20)
[2022-12-03] MEDS ORDERED: LEVO125T6 PO (05:20)
[2022-12-03] MEDS ORDERED: CYAN-41 PO (05:20)
[2022-12-03] MEDS ORDERED: RIVA20TA PO (05:20)
[2022-12-03] MEDS ORDERED: MONT-40 PO (05:20)
[2022-12-03] MEDS ORDERED: CELE100C PO (05:20)
[2022-12-03] MEDS ORDERED: ACHD5005 PO (05:20)
[2022-12-03] MEDS ORDERED: METO50TA15 PO (05:20)
[2022-12-03] MEDS ORDERED: ATOR10TA66 PO (05:20)
--- NOTE | 2022-12-03 05:22 | Discharge Summary ---
Diagnosis/Chief Complaint Date of Admission November 25, 2022 at 13:30 Date of Discharge Discharge Date: December 03, 2022 Discharge Diagnosis Assessment: Right femur fracture s/p repair Post op acute blood loss anemia s/p 1 unit of transfusion Syncope s/p loop recorder Post op constipation-resolved Hypothyroidism AF OAC Dementia? Iron def Vit B12 def Plan: Aggressive PT OT Monitor labs Monitor creat 11/26/2022: Continue pain management Supplement B12 and Iron 11/27/2022: Supplement B12 and iron Pain control 11/28/2022: Improved status 11/29/2022: Monitor closely 11/30/2022: Monitor closely B12 and iron 12/01/2022: No pain reported 12/02/2022: Monitor closely DC Thur (1) Closed intertrochanteric fracture of right hip Status: Acute (2) Hypertension Status: Chronic (3) Hyperlipidemia Status: Chronic (4) Hypothyroidism Status: Chronic (5) Debility Status: Acute (6) Anemia Status: Acute (7) Anticoagulated Status: Acute (8) Fall on same level Status: Acute (9) Syncope Status: Acute (10) HX OVARIAN CANCER EXTENDING INTO COLON Discharge Summary Discharge Physical Examination Allergies: Coded Allergies: Penicillins (Verified Allergy, Mild, 01/04/14) Bcboqkw-EMQ-QmI Reductase Inhibitor (Verified Allergy, Mild, 01/04/14) codeine (Verified Allergy, Mild, PT HAS TOLERATED MORPHINE, 11/20/22) opium tincture (Verified Allergy, Mild, PT HAS TOLERATED MORPHINE, 11/20/22) tramadol (Verified Allergy, Mild, PT HAS TOLERATED MORPHINE, 11/20/22) Vitals & I&Os Vital Signs Date Time Temp Pulse Resp B/P (MAP) Pulse Ox O2 Delivery O2 Flow Rate FiO2 12/03/22 08:13 Room Air 12/03/22 07:52 36.3 79 18 140/84 (102) 96 General Appearance: Alert, Oriented X3, Cooperative Respiratory: Clear to Auscultation Cardiovascular: Regular Rate Hospital Course Was the Problem List Reviewed?: Yes Uneventful course while in ARU. Received IV iron infusions for low iron and acute blood loss anemia. B12 was low so that was supplemented. BM regimen maintained. Patient was seen by this examiner every day. No falls occurred. HH was arranged and she was ready for DC. Labs (last 24 hrs) Laboratory Tests 11/26/22 05:20: Iron Level 36, Vitamin B12 Level 166L 11/26/22 05:27: White Blood Count 3.6L, Red Blood Count 3.21L, Hemoglobin 8.7L, Hematocrit 27L, Mean Corpuscular Volume 83, Mean Corpuscular Hemoglobin 27, Mean Corpuscular Hemoglobin Concent 33, Red Cell Distribution Width 14.2, Platelet Count 189, Mean Platelet Volume 8.6L, Immature Granulocyte % (Auto) 0, Neutrophils (%) (Auto) 70, Lymphocytes (%) (Auto) 13, Monocytes (%) (Auto) 12, Eosinophils (%) (Auto) 5, Basophils (%) (Auto) 0, Neutrophils # (Auto) 2.5, Lymphocytes # (Auto) 0.5L, Monocytes # (Auto) 0.4, Eosinophils # (Auto) 0.2, Basophils # (Auto) 0.0, Immature Granulocyte # (Auto) 0.0, Sodium Level 139, Potassium Level 3.9, Chloride Level 106, Carbon Dioxide Level 23, Anion Gap 10, Blood Urea Nitrogen 18, Creatinine 1.11, Estimat Glomerular Filtration Rate 52, BUN/Creatinine Ratio 16, Glucose Level 114H, Calcium Level 8.5, Corrected Calcium 9.1, Total Bilirubin 1.6H, Aspartate Amino Transf (AST/SGOT) 19, Alanine Aminotransferase (ALT/SGPT) 10, Alkaline Phosphatase 55, Total Protein 5.6L, Albumin 3.2 11/30/22 05:00: White Blood Count 3.4L, Red Blood Count 3.50L, Hemoglobin 9.2L, Hematocrit 30L, Mean Corpuscular Volume 84, Mean Corpuscular Hemoglobin 26, Mean Corpuscular Hemoglobin Concent 31L, Red Cell Distribution Width 14.7H, Platelet Count 271, Mean Platelet Volume 8.5L, Immature Granulocyte % (Auto) 1, Neutrophils (%) (Auto) 53, Lymphocytes (%) (Auto) 29, Monocytes (%) (Auto) 11, Eosinophils (%) (Auto) 6, Basophils (%) (Auto) 1, Neutrophils # (Auto) 1.8, Lymphocytes # (Auto) 1.0, Monocytes # (Auto) 0.4, Eosinophils # (Auto) 0.2, Basophils # (Auto) 0.0, Immature Granulocyte # (Auto) 0.0, Sodium Level 140, Potassium Level 3.7, Chloride Level 105, Carbon Dioxide Level 25, Anion Gap 10, Blood Urea Nitrogen 19H, Creatinine 1.42H, Estimat Glomerular Filtration Rate 39, BUN/Creatinine R atio 13, Glucose Level 99, Calcium Level 9.4, Corrected Calcium 9.8, Total Bilirubin 1.3H, Aspartate Amino Transf (AST/SGOT) 19, Alanine Aminotransferase (ALT/SGPT) 11, Alkaline Phosphatase 74, Total Protein 5.9L, Albumin 3.5 Pending Labs Laboratory Tests 11/26/22 05:20: Iron Level 36, Vitamin B12 Level 166 11/26/22 05:27: White Blood Count 3.6, Red Blood Count 3.21, Hemoglobin 8.7, Hematocrit 27, Mean Corpuscular Volume 83, Mean Corpuscular Hemoglobin 27, Mean Corpuscular Hemoglobin Concent 33, Red Cell Distribution Width 14.2, Platelet Count 189, Mean Platelet Volume 8.6, Immature Granulocyte % (Auto) 0, Neutrophils (%) (Auto) 70, Lymphocytes (%) (Auto) 13, Monocytes (%) (Auto) 12, Eosinophils (%) (Auto) 5, Basophils (%) (Auto) 0, Neutrophils # (Auto) 2.5, Lymphocytes # (Auto) 0.5, Monocytes # (Auto) 0.4, Eosinophils # (Auto) 0.2, Basophils # (Auto) 0.0, Immature Granulocyte # (Auto) 0.0, Sodium Level 139, Potassium Level 3.9, Chloride Level 106, Carbon Dioxide Level 23, Anion Gap 10, Blood Urea Nitrogen 18, Creatinine 1.11, Estimat Glomerular Filtration Rate 52, BUN/Creatinine Ratio 16, Glucose Level 114, Calcium Level 8.5, Corrected Calcium 9.1, Total Bilirubin 1.6, Aspartate Amino Transf (AST/SGOT) 19, Alanine Aminotransferase (ALT/SGPT) 10, Alkaline Phosphatase 55, Total Protein 5.6, Albumin 3.2 11/30/22 05:00: White Blood Count 3.4, Red Blood Count 3.50, Hemoglobin 9.2, Hematocrit 30, Mean Corpuscular Volume 84, Mean Corpuscular Hemoglobin 26, Mean Corpuscular Hemoglobin Concent 31, Red Cell Distribution Width 14.7, Platelet Count 271, Mean Platelet Volume 8.5, Immature Granulocyte % (Auto) 1, Neutrophils (%) (Auto) 53, Lymphocytes (%) (Auto) 29, Monocytes (%) (Auto) 11, Eosinophils (%) (Auto) 6, Basophils (%) (Auto) 1, Neutrophils # (Auto) 1.8, Lymphocytes # (Auto) 1.0, Monocytes # (Auto) 0.4, Eosinophils # (Auto) 0.2, Basophils # (Auto) 0.0, Immature Granulocyte # (Auto) 0.0, Sodium Level 140, Potassium Level 3.7, Chloride Level 105, Carbon Dioxide Level 25, Anion Gap 10, Blood Urea Nitrogen 19, Creatinine 1.42, Estimat Glomerular Filtration Rate 39, BUN/Creatinine Ratio 13, Glucose Level 99, Calcium Level 9.4, Corrected Calcium 9.8, Total Bilirubin 1.3, Aspartate Amino Transf (AST/SGOT) 19, Alanine Aminotransferase (ALT/SGPT) 11, Alkaline Phosphatase 74, Total Protein 5.9, Albumin 3.5 Discharge Home Medications: Active Scripts Active Vitamin B-12 (Cyanocobalamin (Vitamin B-12)) 1,000 Mcg Tablet 1,000 Mcg PO DAILY@0700 Lotrimin AF (Miconazole Nitrate) 2 % Powder 0 Gm TOP BID twice daily Ondansetron Odt (Ondansetron) 4 Mg Tab.rapdis 4 Mg PO Q6H PRN Stool Softener-Laxative Tablet (Sennosides/Docusate Sodium) 8.6 Mg-50 Mg Tablet 1 Ea PO BID Hydrocodone-Acetamin 5-325 mg (Hydrocodone/Acetaminophen) 5 Mg-325 Mg Tablet 1 Ea PO Q4H PRN Celebrex (Celecoxib) 100 Mg Capsule 200 Mg PO DAILY Midodrine HCl 10 Mg Tablet 5 Mg PO TID Xarelto (Rivaroxaban) 20 Mg Tablet 20 Mg PO HS LAST FILLED 01-22-2022 #90/90 DAY SUPPLY Metoprolol Tartrate 50 Mg Tablet 50 Mg PO BID Pantoprazole Sodium 40 Mg Tablet.dr 40 Mg PO DAILY Montelukast Sodium 10 Mg Tablet 10 Mg PO DAILY PRN Atorvastatin Calcium 10 Mg Tablet 10 Mg PO HS Levothyroxine Sodium 125 Mcg Tablet 125 Mcg PO DAILY Reported Fluticasone Propionate 50 Mcg/Actuation [place].susp 1-2 Sprays NSEACH DAILY Trazodone HCl 300 Mg Tablet 300 Mg PO HS Instructions to patient/family Please see electronic discharge instructions given to patient. Diagnosis/Problems Diagnosis/Problems (1) Closed intertrochanteric fracture of right hip Status: Acute (2) Hypertension Status: Chronic (3) Hyperlipidemia Status: Chronic (4) Hypothyroidism Status: Chronic (5) Debility Status: Acute (6) Anemia Status: Acute (7) Anticoagulated Status: Acute (8) Fall on same level Status: Acute (9) Syncope Status: Acute (10) HX OVARIAN CANCER EXTENDING INTO COLON FRANDY TINOCO DO December 03, 2022 05:22
--- NOTE | 2022-12-03 05:22 | D/C HH Face to Face Order ---
D/C HH Face to Face Orders Reconcile Patient Problems Problems Reviewed?: Yes Instructions for Patient HH Patient Instructions/FollowUp: PCP as scheduled Physician to follow Patient: PCP Discharge Diet for Home: No Restrictions Patient Problems: Hip fracture Patient Data-Allergies,Ht & Wt Patient Allergies: Coded Allergies: Penicillins (Verified Allergy, Mild, 01/04/14) Eftjook-PFZ-AyX Reductase Inhibitor (Verified Allergy, Mild, 01/04/14) codeine (Verified Allergy, Mild, PT HAS TOLERATED MORPHINE, 11/20/22) opium tincture (Verified Allergy, Mild, PT HAS TOLERATED MORPHINE, 11/20/22) tramadol (Verified Allergy, Mild, PT HAS TOLERATED MORPHINE, 11/20/22) Height (Feet): 5 Height (Inches): 7.00 Weight (Pounds): 235 Weight (Ounces): 11.2 Home Health Need/Face to Face Date of Face to Face: December 03, 2022 Clinical Findings: Generalized weakness and fatigue, Pain with ambulation, Unsteady gait I have seen Pt mslt-ko-yufi: Yes Discharged To: Home Diagnosis/Conditions: Hip fx Patient is Homebound due to: Muscle weakness, Pain w/ambulation Homebound Status Due to the above stated illness, injury or surgical procedure (medical condition or diagnosis) and associated clinical findings, the patient is homebound because of his/her inability to leave home except with aid of a supportive device and/or person AND leaving the home requires a considerable and taxing effort or is medically contraindicated. Pt req the following assistanc: [facility] Nursing Orders Home Health Services Order: Nursing Services, Mental Health Director-Evaluate & Treat, Physical Therapy-Evaluate & Treat Certify Stmt I certify that this patient is under my care and that I, a nurse practitioner or a physician; a therapeutic recreation assistant working with me, had a face to face encounter that - meets the physician face to face encounter requirements with this patient as dated. FRANDY TINOCO DO December 03, 2022 05:22
[2022-12-03] MEDS: CATHETER FLUSH 10 ML SYR IVP SCH (05:54)
[2022-12-03] MEDS: LEVOTHYROXINE 125 MCG (LEVOTHROID) TABLET PO SCH (05:54)
[2022-12-03] MEDS: CYANOCOBALAMIN 1,000 MCG (VITAMIN B-12) TABLET PO SCH (05:54)
[2022-12-03 07:52] VITALS: BP 140/84
[2022-12-03] MEDS: DOCUSATE SODIUM 100 MG (COLACE) CAP PO SCH (08:05)
[2022-12-03] MEDS: CELECOXIB 100 MG (CeleBREX) CAP PO SCH (08:05)
[2022-12-03] MEDS: meTOprolol TARTRATE 50 MG (LOPRESSOR) TAB PO SCH (08:06)
[2022-12-03] MEDS: MIDODRINE 10 MG (PROAMATINE) TAB PO SCH (08:06)
[2022-12-03] MEDS: PANTOPRAZOLE 40 MG (PROTONIX) TAB PO SCH (08:06)
[2022-12-03] MEDS: SENNA W/DOCUSATE (SENOKOT S) TABLET PO SCH (08:06)
[2022-12-03] MEDS: FLUTICASONE NASAL SPRAY (FLONASE) 16 GM BTL NS SCH (08:07)
[2022-12-03] MEDS: polyethylene glycoL POWDER 17 GM (MIRALAX) PACK PO SCH (08:10)
[2022-12-03] MEDS: MICONAZOLE 2% POWDER (DESENEX AF) 90 GM TOP SCH (08:11)
--- NOTE | 2022-12-03 08:11 | Cardiology Progress Note ---
Subjective Date Seen by Provider: December 03, 2022 Time Seen by Provider: 08:00 Subjective/Events-last exam Patient is sitting up in chair, reporting improvement of her dizziness. Objective-Cardiology Exam Last Set of Vital Signs Vital Signs 12/03/22 12/03/22 07:52 08:13 Temp 36.3 Pulse 79 Resp 18 B/P (MAP) 140/84 (102) Pulse Ox 96 O2 Delivery Room Air I&O Intake and Output 12/02/22 23:59 Intake Total 850 ml Balance 850 ml Intake Oral 850 ml # Voids 9 # Bowel Movements 1 General: Alert, Oriented X3, Cooperative HEENT: Atraumatic, PERRLA Neck: Supple, No JVD, No Thyromegaly Lungs: Clear to Auscultation, Normal Air Movement Heart: Regular Rate, Normal S1, Normal S2, No Murmurs Abdomen: Normal Bowel Sounds, Soft, No Tenderness, No Hepatosplenomegaly, No Masses Extremities: No Clubbing, No Cyanosis, No Edema, Normal Pulses, No Tenderness/Swelling Skin: No Rashes, No Breakdown, No Significant Lesion Neuro: Normal Gait, Normal Speech, Strength at 5/5 X4 Ext, Normal Tone, Sensation Intact Psych/Mental Status: Mental Status NL, Mood NL A/P-Cardiology Admission Diagnosis Syncope Right hip rx AFib HTN Assessment/Plan Syncope, unknown etiology, most probably labile hypertension. Resulted in hip fracture Patient is being monitored on telemetry New loop monitor was implanted on November 23, 2022. Moderate hypertension at this time, will avoid aggressive blood pressure control Currently on midodrine and amlodipine was discontinued. Reporting improvement of dizziness. Hypertension, will accept elevated blood pressure to minimize the chances of syncope. Right-sided hip fracture, hip surgery on November 18, 2022. Receiving physical therapy. Chest pain, nonspecific etiology, has been having chronic chest pain on and off. Feeling better. No further episodes of chest pain were reported. Continue to monitor Permanent atrial fibrillation with variable response, had an episode of aberrant conduction, seen by Dr. Emerson, had a loop recorder implanted in November 2018, having multiple episodes of atrial fibrillation and pauses. Continue to monitor [id number] score is 3, yearly risk of stroke without oral anticoagulation is 3.2 percent. Patient is maintained on Xarelto. Episodes of dizziness with exertion, reporting worsening symptoms recently, has history of atrial fibrillation and questionable sinus node dysfunction Continue to monitor Coronary artery disease, cardiac catheterization was done in August 2015 showing mild ectasia in the proximal LAD with slow flow in the proximal LAD at otherwise small vessel disease no significant obstructive disease. Had another cardiac catheterization done in March 2019 after having an abnormal stress test showing coronary ectasia, no change compared to 2015. Currently EKG did not show any acute abnormality on November 17, 2022. Continue to monitor 2D Echo done on November 18, 2022 with ejection fraction 60 to 65%, PA pressure 40 to 45 mmHg, mild mitral regurgitation moderate tricuspid regurgitation. Mild bilateral nonobstructive carotid artery stenosis, continue to monitor COPD, obstructive sleep apnea, seen by Dr. [place] in the past. Managed by primary care physician Hyperlipidemia, continue to monitor Ovarian cancer, had abdominal extensive surgery, recurrent malignancy, Moderately differentiated carcinoma although very status post total abdominal hysterectomy/BSO and partial colectomy in August 2020, CEA 125 is elevated, CEA normal, receiving carbo plus Taxol. Reporting repeat scans showing improvement. Hypothyroidism managed by primary care physician Prediabetes, patient was educated on diet and weight loss. Obesity, BMI 33, we discussed weight loss and diet Supervisory-Addendum Brief Supervisory Addendum Participated in pt care: history, MDM, physical Personally performed: exam, history, MDM Care discussed with: ROSARIO Results interpretation: Verified all documentation Notes: Patient was seen and evaluated with Peri, examination performed, management plan was discussed, agree with the current scribed note, I made few changes to the note using Italic font Patient was seen at bedside, sitting comfortably Reporting improvement in her dizziness. Tolerating current medication well, continue to monitor PERI BERG December 03, 2022 08:11 ANSON POMPA MD December 03, 2022 08:39
[2022-12-03] MEDS: HYDROcodone/APAP 5 MG/325 MG (LORTAB) TAB PO PRN (10:20)
[2022-12-03 10:40] VITALS: BP 140/84
--- NOTE | 2022-12-03 11:54 | Therapy Team Discharge Summary ---
Therapy Discharge Summary Discharge Recommendations Date of Discharge 12/03/2022 Therapy D/C Recommendations: Home w/ Family Support Physical Therapy Pt admitted to ARU on 11/25/2022 s/p R IM carlos. Pt is 50% PWB to the R LE and is able to abide by this WB status. Pt progressed well with PT and is ready to d/c home with family support. Pt is SBA or Mod I with all aspects of functional mobility. Roll Left to Right (QC): 6 Sit to Lying (QC): 6 Lying to Sitting/Side of Bed(Q: 6 Sit to Stand (QC): 5 Chair/Wia-wu-Xofkz Xfer(QC): 4 Toilet Transfer (QC): 5 Car Transfer (QC): 4 Does the Patient Walk: Yes Mode of Locomotion: Wheelchair Anticipated Mode of Locomotion: Walk Walk 10 feet (QC): 4 Walk 50 ft with 2 Turns(QC): 4 Walk 150 ft (QC): 4 Walking 10ft on uneven surface: 4 Distance: 150ft Gait Assistive Device: FWW Does the Pt Use a Wheelchair: Yes Wheelchair Distance: 150ft Wheel 50 ft with 2 turns (QC): 4 Wheel 150 ft (QC): 4 Type of Wheelchair: Manual 1 Step (curb) (QC): 4 4 Steps (QC): 4 12 Steps (QC): 4 Balance Sitting Static: Good Balance Sitting Dynamic: Good Balance-Standing Static: Good Picking up an Object (QC): 4 Occupational Therapy Decreased Activ Tolerance, Decreased Safety Aware, Impaired Cognition, Impaired Self-Care Skills Eating (QC): 6 Oral Hygiene (QC): 6 Shower/Bathe Self (QC): 4 Upper Body Dressing (QC): 5 Lower Body Dressing (QC): 4 On/Off Footwear (QC): 3 Toileting Hygiene (QC): 6 PT Baseball Pitcher Goals Baseball Pitcher Goals PT Half-Way Goals Time Frame: December 07, 2022 Roll Left to Right (QC): 6 (Pt will complete bed mobility and functional transfers with Mod I. ) Sit to Lying (QC): 6 (Pt will complete bed mobility and functional transfers with Mod I. ) Lying-Sitting on Side/Bed(QC): 6 (Pt will complete bed mobility and functional transfers with Mod I. ) Sit to Stand (QC): 6 (Pt will complete bed mobility and functional transfers with Mod I. ) Chair/Aou-pg-Yjemx Xfer(QC): 6 (Pt will complete bed mobility and functional transfers with Mod I. ) Toilet/Commode Transfer (QC): 6 (Pt will complete bed mobility and functional transfers with Mod I. ) Car Transfer (QC): 5 Does the Patient Walk: Yes Walk 10 feet (QC): 6 (Pt will ambulate 350ft with the FWW and Mod I, in order to show progression towards PLOF. ) Walk 10ft-Uneven Surface(QC): 6 (Pt will ambulate 350ft with the FWW and Mod I, in order to show progression towards PLOF. ) Walk 50ft with 2 Turns (QC): 6 (Pt will ambulate 350ft with the FWW and Mod I, in order to show progression towards PLOF. ) Walk 150 ft (QC): 6 (Pt will ambulate 350ft with the FWW and Mod I, in order to show progression towards PLOF. ) Does the Pt use WC or Scooter?: Yes Wheel 50 feet with 2 turns (QC: 6 (Pt will be Mod I with w/c mobility. ) Type: Manual Wheel 150 feet: 6 (Pt will be Mod I with w/c mobility. ) Type: Manual 1 Step (curb) (QC): 6 (Pt will be Mod I with steps ) 4 Steps (QC): 6 (Pt will be Mod I with steps ) 12 Steps (QC): 6 (Pt will be Mod I with steps ) Picking up an Object (QC): 6 OT Half-Way Goals Half-Way Goals Time Frame: December 11, 2022 Acute change in mental status: 0 Inattention: 0 Disorganized thinkin Altered level of consciousness: 0 Eating (QC): 6 (met) Oral Hygiene (QC): 6 (met) Toileting Hygiene (QC): 6 (met) Shower/Bathe Self (QC): 6 (not met) Upper Body Dressing (QC): 6 (not met) Lower Body Dressing (QC): 6 (not met) On/Off Footwear (QC): 6 (not met) Additional Goals: 1-Demonstrate ADL Tasks, 2-Verbalize Understanding, 3- ImproveStrength/Luzma 1=Demonstrate adherence to instructed precautions during ADL tasks. 2=Patient will verbalize/demonstrate understanding of assistive devices/modifications for ADL. 3=Patient will improve strength/tolerance for activity to enable patient to perform ADL's. Speech Baseball Pitcher Goals Baseball Pitcher Goals 1. The patient will display improved cognitive linguistic skills for safe discharge to the least restrictive environment. NOT MET Time Frame: 10 to 14 Days. MANOHAR PHILLIP PT December 03, 2022 11:54
--- NOTE | 2022-12-04 16:01 | Therapy Team Discharge Summary ---
Therapy Discharge Summary Discharge Recommendations Date of Discharge December 03, 2022 at 10:40 Therapy D/C Recommendations: Home w/ Family Support Physical Therapy Roll Left to Right (QC): 6 Sit to Lying (QC): 6 Lying to Sitting/Side of Bed(Q: 6 Sit to Stand (QC): 5 Chair/Tsm-bf-Wrhtu Xfer(QC): 4 Toilet Transfer (QC): 6 Car Transfer (QC): 4 Does the Patient Walk: Yes Mode of Locomotion: Wheelchair Anticipated Mode of Locomotion: Walk Walk 10 feet (QC): 4 Walk 50 ft with 2 Turns(QC): 4 Walk 150 ft (QC): 4 Walking 10ft on uneven surface: 4 Distance: 150ft Gait Assistive Device: FWW Does the Pt Use a Wheelchair: Yes Wheelchair Distance: 150ft Wheel 50 ft with 2 turns (QC): 4 Wheel 150 ft (QC): 4 Type of Wheelchair: Manual 1 Step (curb) (QC): 4 4 Steps (QC): 4 12 Steps (QC): 4 Balance Sitting Static: Good Balance Sitting Dynamic: Good Balance-Standing Static: Good Picking up an Object (QC): 4 Occupational Therapy Pt admitted to ARU with R hip fx, s/p IM nail. At OF, pt was independent with ADLS and functional mobility without AD. Upon initial evaluation, pt was ind ependent with eating and oral care, required CGA showering, footwear and toileting, set up UE dressing and min A LE dressing. OT txs focused on increasing safety and independence with ADLs and functional mobility, and increasing BUE Strength and activity tolerance. Pt made some functional progress towards goals, but only attained LTGs for eating, oral care and toileting. Pt discharged home with family support, d/c from OT. Decreased Activ Tolerance, Decreased Safety Aware, Impaired Cognition, Impaired Self-Care Skills Eating (QC): 6 Oral Hygiene (QC): 6 Shower/Bathe Self (QC): 4 Upper Body Dressing (QC): 5 Lower Body Dressing (QC): 4 On/Off Footwear (QC): 3 Toileting Hygiene (QC): 6 PT Chairman And Chief Executive Officer Goals Senior Care Goals PT Senior Care Goals Time Frame: December 07, 2022 Roll Left to Right (QC): 6 (Pt will complete bed mobility and functional transfers with Mod I. ) Sit to Lying (QC): 6 (Pt will complete bed mobility and functional transfers with Mod I. ) Lying-Sitting on Side/Bed(QC): 6 (Pt will complete bed mobility and functional transfers with Mod I. ) Sit to Stand (QC): 6 (Pt will complete bed mobility and functional transfers with Mod I. ) Chair/Wrl-ha-Wsnvv Xfer(QC): 6 (Pt will complete bed mobility and functional transfers with Mod I. ) Toilet/Commode Transfer (QC): 6 (Pt will complete bed mobility and functional transfers with Mod I. ) Car Transfer (QC): 5 Does the Patient Walk: Yes Walk 10 feet (QC): 6 (Pt will ambulate 350ft with the FWW and Mod I, in order to show progression towards PLOF. ) Walk 10ft-Uneven Surface(QC): 6 (Pt will ambulate 350ft with the FWW and Mod I, in order to show progression towards PLOF. ) Walk 50ft with 2 Turns (QC): 6 (Pt will ambulate 350ft with the FWW and Mod I, in order to show progression towards PLOF. ) Walk 150 ft (QC): 6 (Pt will ambulate 350ft with the FWW and Mod I, in order to show progression towards PLOF. ) Does the Pt use WC or Scooter?: Yes Wheel 50 feet with 2 turns (QC: 6 (Pt will be Mod I with w/c mobility. ) Type: Manual Wheel 150 feet: 6 (Pt will be Mod I with w/c mobility. ) Type: Manual 1 Step (curb) (QC): 6 (Pt will be Mod I with steps ) 4 Steps (QC): 6 (Pt will be Mod I with steps ) 12 Steps (QC): 6 (Pt will be Mod I with steps ) Picking up an Object (QC): 6 OT Chairman And Chief Executive Officer Goals Chairman And Chief Executive Officer Goals Time Frame: December 11, 2022 Acute change in mental status: 0 Inattention: 0 Disorganized thinkin Altered level of consciousness: 0 Eating (QC): 6 (met) Oral Hygiene (QC): 6 (met) Toileting Hygiene (QC): 6 (met) Shower/Bathe Self (QC): 6 (not met) Upper Body Dressing (QC): 6 (not met) Lower Body Dressing (QC): 6 (not met) On/Off Footwear (QC): 6 (not met) Additional Goals: 1-Demonstrate ADL Tasks, 2-Verbalize Understanding, 3- ImproveStrength/Luzma 1=Demonstrate adherence to instructed precautions during ADL tasks. 2=Patient will verbalize/demonstrate understanding of assistive devices/modifications for ADL. 3=Patient will improve strength/tolerance for activity to enable patient to perform ADL's. Speech Senior Care Goals Senior Care Goals 1. The patient will display improved cognitive linguistic skills for safe discharge to the least restrictive environment. NOT MET Time Frame: 10 to 14 Days. TITA POWERS OT December 04, 2022 16:01
== END 2022-12-03 10:40 | disposition home health service (06) | DRG 560 ==
PROVIDERS: ADMIT Internal Medicine; ATTEND Internal Medicine
DX: S72.144D Nondisplaced intertrochanteric fracture of right femur, subsequent encounter for closed fracture with routine healing (principal); D62 Acute posthemorrhagic anemia; I48.21 Permanent atrial fibrillation; I25.10 Atherosclerotic heart disease of native coronary artery without angina pectoris; E78.00 Pure hypercholesterolemia, unspecified; I10 Essential (primary) hypertension; G62.9 Polyneuropathy, unspecified; R55 Syncope and collapse; K59.09 Other constipation; J44.9 Chronic obstructive pulmonary disease, unspecified; G47.33 Obstructive sleep apnea (adult) (pediatric); I65.23 Occlusion and stenosis of bilateral carotid arteries; R73.03 Prediabetes; E66.9 Obesity, unspecified; K21.9 Gastro-esophageal reflux disease without esophagitis; M81.0 Age-related osteoporosis without current pathological fracture; M79.7 Fibromyalgia; E03.9 Hypothyroidism, unspecified; H91.90 Unspecified hearing loss, unspecified ear; H26.9 Unspecified cataract; F41.9 Anxiety disorder, unspecified; F32.A Depression, unspecified; I08.1 Rheumatic disorders of both mitral and tricuspid valves; Z79.01 Long term (current) use of anticoagulants; Z68.33 Body mass index [BMI] 33.0-33.9, adult; Z87.891 Personal history of nicotine dependence; Z85.43 Personal history of malignant neoplasm of ovary; Z79.899 Other long term (current) drug therapy; Z88.5 Allergy status to narcotic agent; Z88.0 Allergy status to penicillin; Z91.09 Other allergy status, other than to drugs and biological substances
CPT/HCPCS: 36415; 80053; 82607; 83540; 85025

== ENCOUNTER 2023-02-04 09:29 | Outpatient (RCR) | payer MEDICAID, MEDICARE ==
[2023-02-01 14:16] LABS: BASOPHILS % (AUTO) 0 % (0-10); EOSINOPHILS # (AUTO) 0.1 10^3/uL (0.0-0.3); EOSINOPHILS % (AUTO) 3 % (0-10); HEMATOCRIT 36 % (35-52); HEMOGLOBIN 11.7 g/dL (11.5-16.0); LYMPHOCYTES # (AUTO) 0.7 10^3/uL (1.0-4.0); LYMPHOCYTES % (AUTO) 24 % (12-44); MEAN CORPUSCULAR HEMOGLOBIN 27 pg (25-34); MEAN CORPUSCULAR HGB CONC 32 g/dL (32-36); MEAN CORPUSCULAR VOLUME 85 fL (80-99); MEAN PLATELET VOLUME 9.2 fL (9.0-12.2); MONOCYTES # (AUTO) 0.3 10^3/uL (0.0-1.0); MONOCYTES % (AUTO) 8 % (0-12); NEUTROPHILS # (AUTO) 1.9 10^3/uL (1.8-7.8); NEUTROPHILS % (AUTO) 64 % (42-75); PLATELET COUNT 147 10^3/uL (130-400)
[2023-02-01 14:34] LABS: ALBUMIN 3.7 GM/DL (3.2-4.5); BILIRUBIN,TOTAL 0.6 MG/DL (0.1-1.0); CALCIUM 9.2 MG/DL (8.5-10.1); CREATININE SERUM 1.2 MG/DL (0.60-1.30); POTASSIUM 4.2 MMOL/L (3.6-5.0); TOTAL PROTEIN 6.2 GM/DL (6.4-8.2)
[~2023-02-04 09:29] MED LIST changes: +CELE100C PO; +CYAN-41 PO; +MICO90PO TOP; +MIDO10TA PO; +SENN-271 PO
== END 2023-02-15 | disposition home or self-care (01) ==
LOC: ONC 09:29
PROVIDERS: ATTEND Internal Medicine Hematology & Oncology
DX: C56.9 Malignant neoplasm of unspecified ovary (principal); C78.5 Secondary malignant neoplasm of large intestine and rectum; D64.9 Anemia, unspecified; I65.29 Occlusion and stenosis of unspecified carotid artery; I25.10 Atherosclerotic heart disease of native coronary artery without angina pectoris; I48.91 Unspecified atrial fibrillation; J44.9 Chronic obstructive pulmonary disease, unspecified; I10 Essential (primary) hypertension; E78.2 Mixed hyperlipidemia; E03.9 Hypothyroidism, unspecified; Z90.710 Acquired absence of both cervix and uterus
CPT/HCPCS: 36415; 80053; 85025; 86304

== ENCOUNTER 2023-04-03 12:40 | Emergency (ER) | payer MEDICARE ==
[~2023-04-03] VITALS: Ht 165 cm; Wt 96.0 kg
[~2023-04-03 12:40] MED LIST changes: -PROC10TA10 PO; +PROC10TA15 PO
[2023-04-03] MEDS ORDERED: ACETAMINOPHEN 500 MG TABLET PO ONE (13:15)
--- NOTE | 2023-04-03 13:15 | ED General ---
General Stated Complaint: HIGH BLOOD PRESSURE Source of Information: Patient, Family () Exam Limitations: Other (?dementia) History of Present Illness Date Seen by Provider: Apr 03, 2023 Time Seen by Provider: 13:00 Initial Comments Patient is a 77-year-old female who presents to the emergency room with her chief complaint of concern for high blood pressure. Patient relates with the help of her that she started feeling not great yesterday. She developed a generalized headache. Her took her vital signs today and noted that her blood pressure was elevated. He felt like her symptoms are related to having high blood pressure. When asked what a normal blood pressure is for the patient both the patient and her are unable to report what "normal" is. She denies any associated symptoms of URI complaint, productive cough, nausea vomiting. No diarrhea, no urinary complaints. No swelling in her legs. She states bending over makes her headache worse. She has not taken any medications to alleviate the headache. She has a history of atrial fibrillation on chronic anticoagulant therapy. Multiple medications for hypertension, medications for hypothyroid. She denies any recent sick contacts. No COVID concerns. She does appear to have dementia as she looks frequently to her for answers to questions. Timing/Duration: 24 Hours Severity: Moderate Associated Systoms: Headaches, Malaise Allergies and Home Medications Allergies Coded Allergies: Penicillins (Verified Allergy, Mild, 01/04/14) Flhalvh-NWL-QxP Reductase Inhibitor (Verified Allergy, Mild, 01/04/14) codeine (Verified Allergy, Mild, PT HAS TOLERATED MORPHINE, 11/20/22) opium tincture (Verified Allergy, Mild, PT HAS TOLERATED MORPHINE, 11/20/22) tramadol (Verified Allergy, Mild, PT HAS TOLERATED MORPHINE, 11/20/22) Patient Home Medication List Home Medication List Reviewed: Yes Atorvastatin Calcium (Atorvastatin Calcium) 10 Mg Tablet, 10 MG PO HS Prescribed by: FRANDY TINOCO on 12/03/22519 Celecoxib (Celebrex) 100 Mg Capsule, 200 MG PO DAILY Prescribed by: FRANDY TINOCO on 12/03/22519 Cyanocobalamin (Vitamin B-12) (Vitamin B-12) 1,000 Mcg Tablet, 1,000 MCG PO DAILY@0700 Prescribed by: FRANDY TINOCO on 12/03/22519 Fluticasone Propionate (Fluticasone Propionate) 50 Mcg/Actuation [place].susp, 1-2 SPRAYS NSEACH DAILY, (Reported) Entered as Reported by: JUSTIN HUNTER on 11/18/221539 Hydrocodone/Acetaminophen (Hydrocodone-Acetamin 5-325 mg) 5 Mg-325 Mg Tablet, 1 EA PO Q4H PRN for PAIN-MODERATE (5-7) Prescribed by: FRANDY TINOCO on 12/03/22520 Levothyroxine Sodium (Levothyroxine Sodium) 125 Mcg Tablet, 125 MCG PO DAILY Prescribed by: FRANDY TINOCO on 12/03/22519 Metoprolol Tartrate (Metoprolol Tartrate) 50 Mg Tablet, 50 MG PO BID Prescribed by: FRANDY TINOCO on 12/03/22519 Miconazole Nitrate (Lotrimin AF) 2 % Powder, 0 GM TOP BID Prescribed by: FRANDY TINOCO on 12/03/22519 Midodrine HCl (Midodrine HCl) 10 Mg Tablet, 5 MG PO TID Prescribed by: FRANDY TINOCO on 12/03/22519 Montelukast Sodium (Montelukast Sodium) 10 Mg Tablet, 10 MG PO DAILY PRN for ALLERGY SYMPTOMS Prescribed by: FRANDY TINOCO on 12/03/22519 Ondansetron (Ondansetron Odt) 4 Mg Tab.rapdis, 4 MG PO Q6H PRN for NAUSEA/VOMITING-1ST LINE Prescribed by: FRANDY TINOCO on 12/03/22519 Pantoprazole Sodium (Pantoprazole Sodium) 40 Mg Tablet.dr, 40 MG PO DAILY Prescribed by: FRANDY TINOCO on 12/03/22519 Rivaroxaban (Xarelto) 20 Mg Tablet, 20 MG PO HS Prescribed by: FRANDY TINOCO on 12/03/22519 Sennosides/Docusate Sodium (Stool Softener-Laxative Tablet) 8.6 Mg-50 Mg Tablet, 1 EA PO BID Prescribed by: FRANDY TINOCO on 12/03/22519 Trazodone HCl (Trazodone HCl) 300 Mg Tablet, 300 MG PO HS, (Reported) Entered as Reported by: JUSTIN HUNTER on 11/18/221539 Review of Systems Review of Systems Constitutional: see HPI EENTM: no symptoms reported Respiratory: no symptoms reported Cardiovascular: no symptoms reported Gastrointestinal: no symptoms reported Genitourinary: no symptoms reported Musculoskeletal: no symptoms reported Skin: no symptoms reported Psychiatric/Neurological: Headache Past Fgdvbfg-Bqwoid-Tcldul Hx Immunizations Up To Date Tetanus Booster (TDap): Unknown First/Initial COVID19 Vaccinat: N/A Second COVID19 Vaccination Yousuf: N/A Third COVID19 Vaccination Date: N/A Seasonal Allergies Seasonal Allergies: Yes Past Medical History Surgery/Hospitalization HX: HTN, GERD, Surgeries: Yes (DENTAL;HEMORRHOIDECTOMY;CARDIAC CATHS-NO INTERVENTION;LOOP RECORDER;CATARAC) Abdominal, Cardiac, Eye Surgery, Hysterectomy, Orthopedic, Rectal, Tubal Ligation Respiratory: Yes Asthma, Sleep Apnea Currently Using CPAP: No Currently Using BIPAP: No Cardiac: Yes ( CHF;'HOLE IN MY HEART"PER PT;CARDIAC CATHS-NO INTERVENTION; LOOP RECORDER;) Atrial Fibrillation, Coronary Artery Disease, High Cholesterol, Hypertension, Irregular Heartbeat, Peripheral Vascular Neurological: Yes Neuropathy 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 Disorders: No 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 Disorders: Denies 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 Sexually Transmitted Disease: No HIV/AIDS: No Genitourinary: Yes (INCONTINENCE) Bladder Infection, UTI-Chronic Gastrointestinal: Yes Gastroesophageal Reflux, Chronic Constipation, Hemorrhoids, Irritable Bowel Musculoskeletal: Yes (CHRONIC NECK, BACK AND KNEE PAIN) Osteoporosis, Arthritis, Fibromyalgia, Chronic Back Pain Endocrine: Yes (HYPOGLYCEMIA; OBESITY) Hypothyroidsim HEENT: Yes (WEARS GLASSES; CATARACT SURGERY) Cataract Hearing Impairment: Hard of Hearing Cancer: Yes Ovarian Did You Recieve Any Treatments: Yes What Type of Treatment Did You: Surgical Intervention Psychosocial: Yes Anxiety Integumentary: No Blood Disorders: Yes (HX ANEMIA) Adverse Reaction/Blood Tranf: No (N/A) Family Medical History Dementia 19 FATHER Drug abuse G8 BROTHER G8 SISTER FH: pancreatic cancer 19 MOTHER ( OF PANCREATIC CA AGE 67) Thyroid disease 19 MOTHER No Pertinent Family Hx CARDIAC CATHS--LAST ONE 04/12/19--MINIMAL SMALL VESSEL DISEASE, NO INTERVENTION LOOP RECORDER PLACED 12/10/18 FOR CHRONIC ATRIAL FIBRILLATION CAROTID STENOSIS Physical Exam Vital Signs Vital Signs - First Documented 04/03/23 12:59 Temp 36.5 Pulse 69 Resp 18 B/P (MAP) 168/113 (131) Pulse Ox 96 O2 Delivery Room Air Capillary Refill : Height, Weight, BMI Height: 5'7.00" Weight: 235lbs. 11.2oz. 106.423505bi; 33.21 BMI Method:Stated General Appearance: No Apparent Distress, WD/WN Eyes: Bilateral Eye Normal Inspection, Bilateral Eye PERRL, Bilateral Eye EOMI HEENT: Pharynx Normal, Moist Mucous Membranes Neck: Normal Inspection Respiratory: Lungs Clear, Normal Breath Sounds, No Accessory Muscle Use, No Respiratory Distress Cardiovascular: Irregularly Irregular Gastrointestinal: Non Tender, Soft Extremity: Normal Capillary Refill, Normal Inspection, Normal Range of Motion, Non Tender, No Calf Tenderness, No Pedal Edema Neurologic/Psychiatric: Alert, No Motor/Sensory Deficits, Normal Mood/Affect, police department secretary II-XII Norm as Tested Skin: Warm/Dry, Pallor Progress/Results/Core Measures Suspected Sepsis SIRS Temperature: Pulse: Respiratory Rate: Laboratory Tests 04/03/23 13:20: White Blood Count 4.1L Blood Pressure / Mean: Laboratory Tests 04/03/23 13:20: Creatinine 1.10, Platelet Count 162 Results/Orders Lab Results Laboratory Tests Test 04/03/23 13:20 04/03/23 14:05 Range/Units White Blood Count 4.1 L 4.3-11.0 10^3/uL Red Blood Count 4.38 3.80-5.11 10^6/uL Hemoglobin 11.9 11.5-16.0 g/dL Hematocrit 38 35-52 % Mean Corpuscular Volume 86 80-99 fL Mean Corpuscular Hemoglobin 27 25-34 pg Mean Corpuscular Hemoglobin Concent 32 32-36 g/dL Red Cell Distribution Width 13.5 10.0-14.5 % Platelet Count 162 130-400 10^3/uL Mean Platelet Volume 8.9 L 9.0-12.2 fL Immature Granulocyte % (Auto) 1 % Neutrophils (%) (Auto) 80 H 42-75 % Lymphocytes (%) (Auto) 12 12-44 % Monocytes (%) (Auto) 6 0-12 % Eosinophils (%) (Auto) 1 0-10 % Basophils (%) (Auto) 0 0-10 % Neutrophils # (Auto) 3.3 1.8-7.8 10^3/uL Lymphocytes # (Auto) 0.5 L 1.0-4.0 10^3/uL Monocytes # (Auto) 0.2 0.0-1.0 10^3/uL Eosinophils # (Auto) 0.1 0.0-0.3 10^3/uL Basophils # (Auto) 0.0 0.0-0.1 10^3/uL Immature Granulocyte # (Auto) 0.0 0.0-0.1 10^3/uL Sodium Level 141 135-145 MMOL/L Potassium Level 4.3 3.6-5.0 MMOL/L Chloride Level 108 H 98-107 MMOL/L Carbon Dioxide Level 24 21-32 MMOL/L Anion Gap 9 5-14 MMOL/L Blood Urea Nitrogen 19 H 7-18 MG/DL Creatinine 1.10 0.60-1.30 MG/DL Estimat Glomerular Filtration Rate 52 BUN/Creatinine Ratio 17 Glucose Level 92 70-105 MG/DL Calcium Level 9.1 8.5-10.1 MG/DL Urine Color YELLOW Urine Clarity CLEAR Urine pH 7.0 5-9 Urine Specific [place] 1.020 1.016-1.022 Urine Protein 1+ H NEGATIVE Urine Glucose (UA) NEGATIVE NEGATIVE Urine Ketones NEGATIVE NEGATIVE Urine Nitrite NEGATIVE NEGATIVE Urine Bilirubin NEGATIVE NEGATIVE Urine Urobilinogen 2.0 < = 1.0 MG/DL Urine Leukocyte Esterase NEGATIVE NEGATIVE Urine RBC (Auto) NEGATIVE NEGATIVE Urine RBC NONE /HPF Urine WBC NONE /HPF Urine Squamous Epithelial Cells RARE /HPF Urine Crystals NONE /LPF Urine Bacteria NEGATIVE /HPF Urine Casts NONE /LPF Urine Mucus NEGATIVE /LPF Urine Culture Indicated NO My Orders Orders - MOISÉS DOTSON MD Acetaminophen Tablet (Acetaminophen Ta (04/03/23 13:15) Ed Iv/Invasive Line Start (04/03/23 13:09) Cbc With Automated Diff (04/03/23 13:09) Basic Metabolic Panel (04/03/23 13:09) Ua Culture If Indicated (04/03/23 13:09) Medications Given in ED Vital Signs/I&O 04/03/23 04/03/23 04/03/23 04/03/23 12:59 13:53 14:08 15:46 Temp 36.5 Pulse 69 57 66 Resp 18 18 B/P (MAP) 168/113 (131) 162/96 (118) 160/101 Pulse Ox 96 96 O2 Delivery Room Air Room Air Capillary Refill : Progress Note : Time: 15:20 Progress Note Patient seen and evaluated by me. Evaluation today includes physical exam, CBC, BMP and UA. Pertinent physical exam findings include - WDWN female in NAD. SHe is mildly hypertensive with a diastolic BP of 113. SHe otherwise has a normal physical exam without any acute neurologic deficits. She does seem a little confused and looks frequently to her for help in answering questions. While she is alert and oriented, I do believe she may have a little dementia. No concerning findings on exam for acute CVA. Ddx based on H&p include hypertensive urgency, tension headache, occult UTI. Labs independently reviewed and interpreted by me. Her CBC is normal, BMP is normal and UA is without any infection. Patient is given 1g tylenol for her headache and has complete relief. Her BP came down to the 160's without direct intervention. I reviewed the patient's lab results with her and . No concerning abnormalities. She did not keep a record of her blood pressures so I advised doing this and reviewing with her doctor at her next visit. I do not believe that her BP was causing her headache and more that these were just coincidental complaints. No concerning findings for infection causing her increased BP. Tylenol recc for headache at home. Return precautions provided in both verbal and written format. All questions were sought and answered. Departure Impression Primary Impression: Headache Qualified Codes: R51.9 - Headache, unspecified Additional Impression: Elevated blood pressure reading Disposition: 01 HOME, SELF-CARE Condition: Improved Departure-Patient Inst. Decision time for Depature: 15:20 Referrals: JOLANTA MCNALLY MD (PCP/Family) Primary Care Physician Patient Instructions: Headache, Adult ED Add. Discharge Instructions: You should monitor your blood pressure daily. Once a day, take your blood pressure and record it for your next doctor's visit. Take it for example, in the morning on a Wednesday, at lunch on a Wednesday, dinner on Wednesday, mid afternoon on Wednesday - etc. That way you know the trend of your blood pressure and what your "normal" is. You can take over the counter Tylenol 2 extra strength tablets every 6 hours as needed for headache/pain. If you develop any new, concerning or emergent symptoms - please return to the Emergency Department for re-evaluation. Copy Copies To 1: JOLANTA MCNALLY MD, KATHRYN M MD Apr 03, 2023 13:15
[2023-04-03 13:30] LABS: BASOPHILS % (AUTO) 0 % (0-10); EOSINOPHILS # (AUTO) 0.1 10^3/uL (0.0-0.3); EOSINOPHILS % (AUTO) 1 % (0-10); HEMATOCRIT 38 % (35-52); HEMOGLOBIN 11.9 g/dL (11.5-16.0); LYMPHOCYTES # (AUTO) 0.5 10^3/uL (1.0-4.0); LYMPHOCYTES % (AUTO) 12 % (12-44); MEAN CORPUSCULAR HEMOGLOBIN 27 pg (25-34); MEAN CORPUSCULAR HGB CONC 32 g/dL (32-36); MEAN CORPUSCULAR VOLUME 86 fL (80-99); MEAN PLATELET VOLUME 8.9 fL (9.0-12.2); MONOCYTES # (AUTO) 0.2 10^3/uL (0.0-1.0); MONOCYTES % (AUTO) 6 % (0-12); NEUTROPHILS # (AUTO) 3.3 10^3/uL (1.8-7.8); NEUTROPHILS % (AUTO) 80 % (42-75); PLATELET COUNT 162 10^3/uL (130-400); WHITE BLOOD COUNT 4.1 10^3/uL (4.3-11.0)
[2023-04-03 13:38] LABS: POTASSIUM 4.3 MMOL/L (3.6-5.0)
[2023-04-03 13:39] LABS: CALCIUM 9.1 MG/DL (8.5-10.1)
[2023-04-03 13:44] LABS: CREATININE SERUM 1.1 MG/DL (0.60-1.30)
[2023-04-03 14:21] LABS: CLARITY,URINE CLEAR; COLOR,URINE YELLOW; GLUCOSE, URINE (UA) NEGATIVE (NEGATIVE); KETONES,URINE NEGATIVE (NEGATIVE); NITRITE,URINE NEGATIVE (NEGATIVE); PROTEIN,URINE 1+ (NEGATIVE)
[2023-04-03 14:22] LABS: BACTERIA,URINE NEGATIVE /HPF; BILIRUBIN,URINE NEGATIVE (NEGATIVE); LEUKOCYTE ESTERASE ,URINE NEGATIVE (NEGATIVE); SQUAMOUS EPITHELIAL CELL,UR RARE /HPF
[2023-04-03 15:46] VITALS: BP 160/101
== END 2023-04-03 15:47 | disposition home or self-care (01) ==
LOC: EDUNIT# 12:40 → ER 12:42
DX: I10 Essential (primary) hypertension (principal); E03.9 Hypothyroidism, unspecified; E66.9 Obesity, unspecified; Z68.33 Body mass index [BMI] 33.0-33.9, adult; Z79.899 Other long term (current) drug therapy
CPT/HCPCS: 36415; 80048; 81000; 85025